=== PATIENT | male | born 1935 | race Caucasian/White ===

== ENCOUNTER → 2017-08-13 10:57 | Outpatient (CLI) | payer OTHER, SELFPAY ==
[2017-08-13 13:09] LABS: INR 2.1 (0.9-1.3)
== END ==
PROVIDERS: PCP Internal Medicine; Visit Provider Internal Medicine
DX: I48.91 Unspecified atrial fibrillation (principal)
CPT/HCPCS: 36415; 85610

== ENCOUNTER → 2017-09-13 08:16 | Outpatient (CLI) | payer OTHER, SELFPAY ==
[2017-09-13 09:43] LABS: INR 2.1 (0.9-1.3); Prothrombin Time 22.3 SECONDS (10.1-12.7)
== END ==
PROVIDERS: PCP Internal Medicine; Visit Provider Internal Medicine
DX: I48.91 Unspecified atrial fibrillation (principal)
CPT/HCPCS: 36415; 85610

== ENCOUNTER 2017-09-15 19:53 | Observation (INO) | payer OTHER, SELFPAY ==
[2017-09-15 20:00] VITALS: BP 126/77; PULSE 84; RESP 21; TEMP 36.8; O2SAT 100
--- NOTE | 2017-09-15 20:37 | DI.RAD.S_ITS ---
PROCEDURE: XR CHEST 2V INDICATIONS: chest pain TECHNIQUE: 2 views of the chest were acquired. COMPARISON: [facility], CT, THORAX WITHOUT CONTRAST, 11/08/2016, 21:55. [facility], CR, CHEST 1 VIEW, 02/17/2017, 12:21. FINDINGS: There are respiratory motion artifacts on the lateral view. Surgical changes and devices: None. Lungs and pleura: No pleural effusions or pneumothorax. Lungs are clear. Mediastinum: Mediastinal contours are normal. Heart size is normal. Bones and chest wall: No suspicious bony abnormalities. Soft tissues appear unremarkable. IMPRESSION: No acute cardiopulmonary disease. Dictated by: Krystal Rowe M.D. on 09/15/2017 at 20:58 Approved by: Krystal Rowe M.D. on 09/15/2017 at 20:59
[2017-09-15 20:51] LABS: Add Manual Diff / Slide Review NO; Basophils Percent Auto 0.5 % (0-2); Eosinophils Percent Auto 0.8 % (2-4); Hemoglobin 13.3 g/dL (13.5-17.5); Mean Corpuscular HGB Conc 34.1 % (30-36); Mean Corpuscular Hemoglobin 29.3 PG (26-34); Mean Corpuscular Volume 86.1 fL (80-100); Monocytes Percent Auto 6.3 % (3-14); Neutrophils Absolute Auto 6300 /uL (3000-5900); Neutrophils Percent Auto 76.4 % (50-75); Platelet Count 185 X10^3/uL (150-400); Red Blood Cell Count 4.53 X10^6/uL (4.5-5.9); Red Cell Distribution Width 15.2 % (11.6-14.8); White Blood Cell Count 8.2 X10^3/uL (4.5-11.0)
[2017-09-15 20:55] LABS: D Dimer 203 ng/mL (<230)
[2017-09-15 21:04] LABS: Lipase 151 U/L (23-300)
[2017-09-15] MEDS: ASPIRIN 81 MG TAB 324 MG PO (21:13)
[2017-09-15 21:19] VITALS: BP 127/68; PULSE 72; RESP 15; O2SAT 100
[2017-09-15 21:27] LABS: Alanine Aminotransferase 28 IU/L (21-72); Albumin 4.2 g/dL (3.5-5.0); Albumin Globulin Ratio 1.3 (1.0-2.8); Alkaline Phosphatase 109 U/L (38-126); Aspartate Aminotransferase 45 IU/L (17-59); BUN Creatinine Ratio 18.7 (6-22); Bilirubin Total 0.9 mg/dL (0.2-1.3); Blood Urea Nitrogen 28 mg/dL (9-20); Carbon Dioxide 23 mmol/L (22-32); Chloride 104 mmol/L (98-107); Estimated Glomerular Filt Rate 44.8 mL/min (>60); Globulin 3.3 g/dL (1.7-4.1); Glucose 309 mg/dL (80-110); HEMOLYSIS 21 (0-50); Potassium 4.7 mmol/L (3.4-5.1); Sodium 139 mmol/L (137-145); Total Protein 7.5 g/dL (6.3-8.2)
[2017-09-15 21:41] LABS: Troponin I < 0.012 ng/mL (0.01-0.034)
[2017-09-15 22:05] VITALS: BP 125/40; PULSE 88; RESP 24; O2SAT 100
--- NOTE | 2017-09-15 22:31 | ED_ITS ---
HPI - Chest Pain General Chief Complaint: Chest Pain Stated Complaint: Chest Pressure History of Present Illness HPI narrative: HPI 82-year-old obese male with IDDM, CHF, and A. fib (on warfarin) presents for evaluation of 3 hours of substernal chest pain that is moderate to severe and without clear provoking or relieving factors. Patient denies similar prior symptoms. Patient denies fevers, chills, cough, SOB. Notes multiple current stressors as several family members are ill and hospitalized. M/S/F/SocHx notable for: please see HPI; remainder reviewed with patient and in chart. ROS: Negative constitutional, eye, cardiovascular, pulmonary, GI, , MSK, skin , neurologic, psychiatric, endocrine unless noted in the HPI. Exam Gen: Pleasant, non-toxic appearing, resting comfortably. HEENT: NC, AT, PEERL, EOMI. Resp: Clear to auscultation bilaterally, normal work of breathing. Card: RRR with no M/R/G, no crackles in lung bases, 1+ edema to the midcalves bilaterally, no JVD appreciated. GI: NT/ND Vascular: Both ankles, calves, and thighs of equal size, no calf tenderness to palpation bilaterally. MSK: No chest wall TTP. No visible deformities, strength and tone WNL. Skin: Normal color with no visible lesions. Neuro: AO x 3, no facial asymmetry, vision and hearing WNL. Psych: Mood and affect appropriate. Labs / Imaging (pertinent): WBC 8.2, Hb 13.3, Na 139, K 4.7. Troponin <0.012 CXR: no acute cardiopulmonary disease process. EKG: atrial fibrillation with ventricular rate of 70 bpm, RBBB, nonspecific ST segment changes. MDM Previous chart, nursing note, and vitals reviewed. A: 82-year-old obese male with IDDM, CHF, and A. fib (on warfarin) presents for evaluation of 3 hours of substernal chest pain that is moderate to severe and without clear provoking or relieving factors. DDx and Evaluation: * ACS - doubt ACS given a non-ischemic EKG and a negative initial troponin, however patient require serial troponins for completion of evaluation. * UA - significant concern for unstable angina, HEART score 6 (Hx - 1, EKG - 1, age - 2, risk factors - 2, troponin - 0; 30 day MACE: 12 to 16.6%). * Pericarditis - consider pericarditis unlikely given the lack of CO segment depressions as well as the absence of diffuse ST-segment elevations, lack of reduction of pain when supine, and lack of a friction rub. * Myocarditis - unlikely given the negative troponin and an EKG without characteristic CO-segment or ST-segment changes. * Dissection - dissection is unlikely given symptoms, and lack of mediastinal widening. * PE - low clinical suspicion given history and alternate diagnosis, further risk stratification (e.g.) Well's not indicated. * Mediastinal Air - no evidence by CXR or auscultation. * Pneumothorax - no evidence by CXR or physical exam. * MSK - doubt given lack of reproducibility on exam. * Endocarditis - no identifiable risk factors, patient afebrile, no new murmurs appreciated on exam; doubt. * GI (Esophageal rupture, GERD) - esophageal rupture effectively excluded given the lack of mediastinal widening, non-toxic appearance, and lack of identifiable risk factors. While not definitively excluded, further evaluation of GERD is deferred to an outpatient setting. ED Course: Patient given ASA and SL nitroglycerin. Vital signs remained stable and within clinically acceptable limits. Disposition: Admitted for cardiac evaluation. Impression: Chest Pain. (please reference below for remainder of encounter information) Related Data Home Medications Medication Instructions Recorded Confirmed tramadol 50 mg PO Q6HP PRN #0 02/03/16 insulin asp prt-insulin aspart 0 SQ BIDAC #0 02/17/17 [Novolog Mix 70-30FlexPen U-100] ketoconazole 1 yue TOPICAL BIDP PRN #0 02/17/17 triamcinolone acetonide 1 yue TOPICAL BIDP PRN #0 02/17/17 Previous Rx's Medication Instructions Recorded metoprolol succinate 100 mg PO QDAY #30 ter 11/11/16 warfarin [Coumadin] 0 PO HS #30 tab 02/17/17 furosemide [Lasix] 80 mg PO QDAY #30 tab 02/19/17 warfarin [Coumadin] 2.5 mg PO SuTuThSa@1800 #30 02/19/17 warfarin [Coumadin] 5 mg PO MoWeFr@1800 #30 02/19/17 tramadol 1 tab PO Q4HP PRN #12 tab 06/25/17 Allergies Allergy/AdvReac Type Severity Reaction Status Date / Time Penicillins Allergy Unknown Unverified 06/23/17 12:01 COUNT INCLUDES THE [facility] Social History Smoking Status: Never smoker Exam Initial Vital Signs Initial Vital Signs: Vital Signs Temperature 98.3 F 09/15/17 20:00 Pulse Rate 84 09/15/17 20:00 Respiratory Rate 21 09/15/17 20:00 Blood Pressure 126/77 H 09/15/17 20:00 Pulse Oximetry 100 09/15/17 20:00 Course Orders Ordered: ED Orders 09/15/17 20:00 Complete Blood Count AUTO DIFF Stat Comprehensive Metabolic Panel Stat D Dimer Stat Lipase Stat Prothrombin Time INR Stat Troponin I Stat 09/15/17 20:37 XR chest 2V Stat 09/15/17 22:28 Consult to Physician Routine Nitroglycerin (Nitrostat) 0.4 mg SL [id number] PRN PRN Reason: Chest Pain Discontinued Medications Aspirin (Aspirin Chew) 324 mg PO NOW ONE Stop: 09/15/17 20:39 Last Admin: 09/15/17 21:13 Dose: 324 mg Vital Signs - 8 hr 09/15/17 20:00 09/15/17 21:19 09/15/17 22:05 Temperature 98.3 F Pulse Rate 84 72 88 Respiratory Rate 21 15 24 Blood Pressure 126/77 H Blood Pressure [Right Arm] 127/68 H 125/40 H Pulse Oximetry 100 100 100 MDM - Chest Pain Lab Data Result diagrams: 09/15/17 20:00 09/15/17 20:00 Lab Results 09/15/17 09/15/17 09/15/17 Range/Units 20:00 20:00 20:00 WBC 8.2 (4.5-11.0) X10^3/uL RBC 4.53 (4.5-5.9) X10^6/uL Hgb 13.3 L (13.5-17.5) g/dL Hct 39.0 L (41-53) % MCV 86.1 (80-100) fL MCH 29.3 (26-34) PG MCHC 34.1 (30-36) % RDW 15.2 H (11.6-14.8) % Plt Count 185 (150-400) X10^3/uL Neut % (Auto) 76.4 H (50-75) % Lymph % (Auto) 16.0 L (25-40) % [place] % (Auto) 6.3 (3-14) % Eos % (Auto) 0.8 L (2-4) % Baso % (Auto) 0.5 (0-2) % Neut # (Auto) 6300 H (9770-1537) /uL PT (10.1-12.7) SECONDS INR (0.9-1.3) D-Dimer 203 (<230) ng/mL Sodium 139 (137-145) mmol/L Potassium 4.7 (3.4-5.1) mmol/L Chloride 104 (98-107) mmol/L Carbon Dioxide 23 (22-32) mmol/L BUN 28 H (9-20) mg/dL Creatinine 1.50 H (0.66-1.25) mg/dL Estimated GFR 44.8 L (>60) mL/min BUN/Creatinine Ratio 18.7 (6-22) Glucose 309 H (80-110) mg/dL Calcium 9.0 (8.4-10.2) mg/dL Total Bilirubin 0.9 (0.2-1.3) mg/dL AST 45 (17-59) IU/L ALT 28 (21-72) IU/L Alkaline Phosphatase 109 (38-126) U/L Troponin I < 0.012 (0.01-0.034) ng/mL Total Protein 7.5 (6.3-8.2) g/dL Albumin 4.2 (3.5-5.0) g/dL Globulin 3.3 (1.7-4.1) g/dL Albumin/Globulin Ratio 1.3 (1.0-2.8) Lipase (23-300) U/L 09/15/17 09/15/17 Range/Units 20:00 20:00 WBC (4.5-11.0) X10^3/uL RBC (4.5-5.9) X10^6/uL Hgb (13.5-17.5) g/dL Hct (41-53) % MCV (80-100) fL MCH (26-34) PG MCHC (30-36) % RDW (11.6-14.8) % Plt Count (150-400) X10^3/uL Neut % (Auto) (50-75) % Lymph % (Auto) (25-40) % [place] % (Auto) (3-14) % Eos % (Auto) (2-4) % Baso % (Auto) (0-2) % Neut # (Auto) (4829-4058) /uL PT 22.0 H (10.1-12.7) SECONDS INR 2.0 H (0.9-1.3) D-Dimer (<230) ng/mL Sodium (137-145) mmol/L Potassium (3.4-5.1) mmol/L Chloride (98-107) mmol/L Carbon Dioxide (22-32) mmol/L BUN (9-20) mg/dL Creatinine (0.66-1.25) mg/dL Estimated GFR (>60) mL/min BUN/Creatinine Ratio (6-22) Glucose (80-110) mg/dL Calcium (8.4-10.2) mg/dL Total Bilirubin (0.2-1.3) mg/dL AST (17-59) IU/L ALT (21-72) IU/L Alkaline Phosphatase (38-126) U/L Troponin I (0.01-0.034) ng/mL Total Protein (6.3-8.2) g/dL Albumin (3.5-5.0) g/dL Globulin (1.7-4.1) g/dL Albumin/Globulin Ratio (1.0-2.8) Lipase 151 (23-300) U/L Discharge Plan Departure Patient Disposition: Admitted As Inpatient Clinical Impression: Chest pain
[2017-09-15 23:20] VITALS: BP 108/53; PULSE 82; RESP 17; O2SAT 100
[2017-09-16] VITALS (12 sets, daily range): BP systolic 108–145; BP diastolic 62–93; PULSE 77–104; RESP 12–26; TEMP 36.3–36.7; O2SAT 97–100; BMI 39.2
--- NOTE | 2017-09-16 02:27 | PC.ADMIT ---
[id number] [facility] Admission Note: Marty was admitted from Emergency Room via wheelchair into room 205 Acute care for observation of chest pain / on telemetry, currently NPO with PIV in left forearm. He has chronic back pain and uses a cane, also has limited sight out of right eye with reduction in perception and acuity, and he did not bring his glasses to hospital making reading challenging. He is alert, a good historian and able to provide accurate information about past health, and he brings along a medication log which details his meds and labs. On PE, he has 3+ dependent edema of his legs / ankles and 4+ on top of left foot. Musculoskeletal mobility is impaired with reduction in all levels of movement. He is NPO for stress test later in AM. The patient,Marty Heard, 82 y/o, was given written information regarding hospital policies, unit procedures and contact persons. Patient's smoking status: Never smoker. Vital Signs - 8 hr 09/15/17 20:00 09/15/17 21:19 09/15/17 22:05 Temperature 98.3 F Pulse Rate 84 72 88 Respiratory Rate 21 15 24 Blood Pressure 126/77 H Blood Pressure [Right Arm] 127/68 H 125/40 H Pulse Oximetry 100 100 100 09/15/17 23:20 09/16/17 00:11 09/16/17 00:40 Temperature Pulse Rate 82 88 104 H Respiratory Rate 17 26 H 15 Blood Pressure 113/63 Blood Pressure [Right Arm] 108/53 L 113/63 Pulse Oximetry 100 97 98 09/16/17 01:18 Temperature 97.7 F Pulse Rate 85 Respiratory Rate 12 Blood Pressure 145/77 H Blood Pressure [Right Arm] Pulse Oximetry 100
[2017-09-16] MEDS: MORPHINE 2 MG/ML INJ IV (04:14)
--- NOTE | 2017-09-16 04:33 | PC.NURSE ---
Addendum entered by Kira Sumner R.N. 09/16/17 04:51: Son, Jason, visiting in room. Original Note: Pain centralized under sternum; no radiation,no diaphoresis, BP stable w systolic at 144, sats 99. morphine 2 mg IV given at 0416 with good results. He ambulated to bathroom, returned to bedside chair.
[2017-09-16 04:51] LABS: Troponin I < 0.012 ng/mL (0.01-0.034)
--- NOTE | 2017-09-16 09:28 | PM.HP.1 ---
History of Present Illness Date Patient Seen: 09/16/17 Time Patient Seen: 08:28 Chief complaint: Chest Pressure Narrative: Patient is an 82-year-old male who sees Dr. Junior Singh for primary care presented last night to emergency department with complaints of persistent chest discomfort. He has history of diabetes, chronic atrial fibrillation, on chronic anticoagulation, but no known coronary artery disease. Yesterday afternoon he began to notice chest discomfort which persisted for several hours bringing him to the emergency department. The discomfort was located in the lower sternum. He also felt shortness of breath. Patient states he had a normal chemical stress test a couple of years ago. His initial EKG was unchanged and cardiac enzymes have been normal x2. Currently not having pain. Patient History Medical History Diabetes (Acute) Chronic atrial fibrillation with RVR (Acute) Hypothyroidism (Acute) Cancer of left ear (Acute) E coli infection (Acute) Hernia of abdominal cavity (Acute) Inguinal hernia bilateral, non-recurrent (Acute) Melanoma (Acute) Prostate cancer (Acute) Family & Social History Social History: household members family Prior Living Arrangements House Safety & Behavioral: Feels Safe in Current Yes Environment Been Physically Hurt or No Threatened By a Person Suicidal Ideation Description None Suicide Plan Description No Plan Tobacco & Substance use: Smoking Status Never smoker alcohol intake frequency 0-2 drinks per day Substance Use Type does not use Meds Home Medications Medication Instructions Recorded Confirmed Type tramadol 50 mg PO Q6HP PRN #0 02/03/16 09/16/17 History metoprolol succinate 100 mg PO QDAY #30 ter 11/11/16 09/16/17 Rx insulin asp prt-insulin aspart 30 units SQ BIDAC #0 02/17/17 09/16/17 History [Novolog Mix 70-30FlexPen U-100] furosemide [Lasix] 80 mg PO QDAY #30 tab 02/19/17 09/16/17 Rx warfarin [Coumadin] 2.5 mg PO SuTuThSa@1800 #30 02/19/17 09/16/17 Rx levothyroxine 50 mcg PO DAILY 09/16/17 09/16/17 History Allergies Allergy/AdvReac Type Severity Reaction Status Date / Time Penicillins Allergy Unknown Verified 09/16/17 04:01 Review of Systems Review of Systems All systems reviewed & are unremarkable except as noted in HPI and below Exam Vital Signs (past 8 hours): - 09/16/17 04:06 09/16/17 04:32 09/16/17 04:43 Temperature 97.5 F L Pulse Rate 88 88 Respiratory Rate 14 12 Blood Pressure 144/76 H 123/77 H Pulse Oximetry 99 99 Oxygen Delivery Method Room Air Narrative Exam Narrative: GENERAL: This is an alert obese male in no acute distress. HEAD: Atraumatic. Normocephalic. EYES: Pupils equal, round and reactive. Extraocular motions intact. No scleral icterus. No injection or drainage. OROPHARYNX: moist mucosa NECK: Trachea midline. No JVD or lymphadenopathy. CARDIOVASCULAR: Distant S1 and S2, irregularly regular rhythm, no murmur RESPIRATORY: Clear to auscultation bilaterally. GASTROINTESTINAL: Abdomen obese, soft, non-tender. No hepato-splenomegaly, or palpable masses. EXTREMITIES: Chronic edema lower extremities. Distal pulses not palpable. NEUROLOGICAL: Alert, well oriented, speech is intact, normal bilateral upper and lower extremity strength SKIN: warm, dry, no rash Objective Labs Result Diagrams: 09/15/17 20:00 09/15/17 20:00 Labs: EKG x2: Atrial fibrillation with RVR, LAD, right bundle branch block Chest x-ray: No acute finding Laboratory Results - last 24 hr 09/15/17 09/15/17 09/15/17 20:00 20:00 20:00 WBC 8.2 RBC 4.53 Hgb 13.3 L Hct 39.0 L MCV 86.1 MCH 29.3 MCHC 34.1 RDW 15.2 H Plt Count 185 Neut % (Auto) 76.4 H Lymph % (Auto) 16.0 L [place] % (Auto) 6.3 Eos % (Auto) 0.8 L Baso % (Auto) 0.5 Neut # (Auto) 6300 H PT INR D-Dimer 203 Sodium 139 Potassium 4.7 Chloride 104 Carbon Dioxide 23 BUN 28 H Creatinine 1.50 H Estimated GFR 44.8 L BUN/Creatinine Ratio 18.7 Glucose 309 H Calcium 9.0 Total Bilirubin 0.9 AST 45 ALT 28 Alkaline Phosphatase 109 Troponin I < 0.012 Total Protein 7.5 Albumin 4.2 Globulin 3.3 Albumin/Globulin Ratio 1.3 Lipase 09/15/17 09/15/17 09/16/17 20:00 20:00 04:20 WBC RBC Hgb Hct MCV MCH MCHC RDW Plt Count Neut % (Auto) Lymph % (Auto) [place] % (Auto) Eos % (Auto) Baso % (Auto) Neut # (Auto) PT 22.0 H INR 2.0 H D-Dimer Sodium Potassium Chloride Carbon Dioxide BUN Creatinine Estimated GFR BUN/Creatinine Ratio Glucose Calcium Total Bilirubin AST ALT Alkaline Phosphatase Troponin I < 0.012 Total Protein Albumin Globulin Albumin/Globulin Ratio Lipase 151 Assessment & Plan Plan: Assessment/Plan Narrative: 1. Chest pain syndrome. Patient's initial evaluation includes EKG x2 with no acute findings and troponin x2 negative. He has cardiac risk factors of diabetes. Admitted to observation service for further assessment for potential occlusive coronary artery disease. He is unable to walk sufficiently on treadmill and a chemical stress test is planned for today. 2. Chronic atrial fibrillation. His INR is therapeutic on warfarin and rate controlled with metoprolol. 3. Diabetes. Continue routine insulin. 4. Likely peripheral artery disease. He has stigmata of PA DE on exam with nonpalpable distal pulses, shiny skin, pedal edema. Recommend further outpatient evaluation.
--- NOTE | 2017-09-16 11:25 | PC.NURSE ---
Addendum entered by Odalys Cohen R.N. 09/16/17 12:38: Metoprolol and lasix held for stress test. Patient returned to floor at 1230 from [facility]. CBG at 390. Called down to pharmacy to stress importance of insulin (pt on a non-formulary Novolog 70/30 mix and pharmacy is awaiting its arrival from [facility]). Patient resting in chair with ice water. Spoke to Dr. Castañeda who mentioned that he will start the pt on a sliding scale. Original Note: Patient left floor at 1100 via wheelchair to [facility] for stress test.
[2017-09-16] MEDS: METOPROLOL ER 50 MG TABLET 100 MG PO (12:48)
[2017-09-16] MEDS: FUROSEMIDE 40 MG TABLET 80 MG PO (12:48)
[2017-09-16] MEDS: INSULIN ASPART 100 UNIT/ML INSULN PEN SUBCUT ×2 (12:56→16:51)
--- NOTE | 2017-09-16 14:22 | CM.DANOTE ---
DCP: Case received, EMR reviewed and met with patient. Introduced self and role. DCP template completed with info currently available. Pt. is an 82 year male who was admitted yesterday evening to care of hospitalist team. PCP: Dr. Singh. Payer: confirmed: [facility]. Patient carries diagnosis of chest pain, and will be undergoing stress test. Plan: channel sales manager will follow patient and note when discharge is to occur. Lives at home with . Marya Sol RN/case hardener
[2017-09-16] MEDS: INSULIN GLARGINE 100 UNIT/ML 3ML PEN 21 UNIT SUBCUT (16:52)
[2017-09-16] MEDS: INSULIN ASPART 100 UNIT/ML INSULN PEN 9 UNIT SUBCUT (16:52)
[2017-09-16] MEDS: WARFARIN 2.5 MG TABLET PO (16:54)
[2017-09-16] MEDS: SODIUM CHLORIDE 0.9% FLUSH 10 ML IV (19:12)
[2017-09-17 02:15] VITALS: BP 117/72; PULSE 95; RESP 16; TEMP 36.4; O2SAT 98
--- NOTE | 2017-09-17 02:39 | PC.NURSE ---
Addendum entered by Yanely Brown R.N. 09/17/17 06:22: Stood at side of bed to urinate. Has great difficulty moving and needed assistance to get to standing position. After back to bed requested to use bathroom for BM so was assisted to BSC but only passed flatus. Denies pain this morning. Slept most of shift. Original Note: Patient is alert and oriented. Is legally blind in right eye and objects are blurred. Breath sounds CTA with RA sat of 98%. HR irregular; hx of afib. Tele reading at 0000 was afib CVR w/BBB, ectopy and occ PVC's. Denies nausea. BT present and abdomen is soft. Denies dysuria, frequency, urgency or incontinence. Independent with bed mobility but is unsteady and weak in LE so uses walker + 1 assist when up to bathroom. Denies pain or chest pressure. Is aware he is having Lexiscan in a.m. and will be NPO after 0500. 3+ bilateral LE edema which he states was present on admit and causes legs to feel numb. Fall risk score is high and bed alarm is activated.
[2017-09-17 05:55] VITALS: BP 129/86; PULSE 95; RESP 16; TEMP 36.2
[2017-09-17 08:00] VITALS: BP 115/73; PULSE 85; RESP 20; TEMP 36.2; O2SAT 98
--- NOTE | 2017-09-17 08:56 | PC.NURSE ---
Addendum entered by Odalys Cohen R.N. 09/17/17 09:24: Patient returned to floor around 0915. Sitting up in chair. Breathing heavy, but denies shortness of breath or chest pain. RR 20. Breathing down to 18 and less work 2 minutes after sitting up and resting. Original Note: AM Shift Patient left floor at 0830 for stress test. Morning PO meds held due to patient NPO. Patient denying pain/n/v
[2017-09-17] MEDS: METOPROLOL ER 50 MG TABLET 100 MG PO (09:49)
[2017-09-17] MEDS: FUROSEMIDE 40 MG TABLET 80 MG PO (09:49)
[2017-09-17] MEDS: LEVOTHYROXINE 50 MCG TABLET PO (09:49)
[2017-09-17] MEDS: INSULIN GLARGINE 100 UNIT/ML 3ML PEN 21 UNIT SUBCUT ×2 (09:50→16:52)
[2017-09-17] MEDS: INSULIN ASPART 100 UNIT/ML INSULN PEN SUBCUT ×3 (09:51→16:51)
[2017-09-17] MEDS: INSULIN ASPART 100 UNIT/ML INSULN PEN 9 UNIT SUBCUT ×2 (09:51→16:51)
[2017-09-17] MEDS: SODIUM CHLORIDE 0.9% FLUSH 10 ML IV (09:55)
[2017-09-17 13:30] VITALS: BP 105/58; BP 86/52; PULSE 90; RESP 20; TEMP 36.9; O2SAT 97
--- NOTE | 2017-09-17 16:01 | PM.DS.1 ---
History of Present Illness Chief complaint: Chest Pressure Narrative: Patient is an 82-year-old male who sees Dr. Junior Singh for primary care presented last night to emergency department with complaints of persistent chest discomfort. He has history of diabetes, chronic atrial fibrillation, on chronic anticoagulation, but no known coronary artery disease. Yesterday afternoon he began to notice chest discomfort which persisted for several hours bringing him to the emergency department. The discomfort was located in the lower sternum. He also felt shortness of breath. Patient states he had a normal chemical stress test a couple of years ago. His initial EKG was unchanged and cardiac enzymes have been normal x2. Currently not having pain. Discharge Providers Date of admission: 09/15/17 23:39 Primary care physician: Junior Singh MD Consults: 09/15/17 22:28 Consult to Physician Routine Comment: Consulting Provider: Asif Green V Reason for consultation: chest pain Has provider been notified: Yes Discharge provider: Efren Castañeda MD Summary Discharge Diagnosis: 1. Chest pain, noncardiac 2. Chronic atrial fibrillation 3. Diabetes 4. Suspect peripheral artery disease Procedures: Myocardial perfusion stress test with Lexiscan: Read as probably normal. There is a very subtle inferoapical defect which may be tissue attenuation artifact but no obvious reversible abnormality. Hospital Course: Patient ruled out for CA with serial enzymes. EKG is without acute changes. Lexiscan stress test without obvious reversible ischemia. Discomfort may have been due to reflux, musculoskeletal or other more benign causes. Symptoms have substantially improved. On exam there is concern about severe peripheral artery disease and further outpatient evaluation advised if deemed appropriate by primary care provider. He will follow up next week with Dr. Singh. Status at Discharge Functional status at discharge: uses cane/walker Overall status at discharge: patient is back to baseline Exam Vital Signs (past 8 hours): - 09/17/17 13:30 Temperature 98.4 F Pulse Rate 90 Respiratory Rate 20 Blood Pressure 105/58 L Pulse Oximetry 97 Oxygen Delivery Method Room Air Oxygen Flow Rate 0 Objective Labs Result Diagrams: 09/15/17 20:00 09/15/17 20:00 Discharge Plan Discharge Plan Patient Disposition: Home, Self-Care Provider Discharge Instructions Diet: Diet as Tolerated Discharge Data Primary Care Provider: Junior Singh Attending Provider: Asif Green V Admit Date/Time: 09/15/17 23:39
[2017-09-17] MEDS: WARFARIN 5 MG TABLET PO (16:52)
[2017-09-17 16:59] VITALS: BP 120/75; PULSE 92; RESP 18; TEMP 36; O2SAT 97
--- NOTE | 2017-09-17 18:45 | PC.NURSE ---
DISCHARGE A&Ox3, pt eager to get home. denies any pain, chest pain, or SOB. pt able to ambulate in room with FWW and min/SBA. tele monitoring shows Afib/BBB. d/c instructions reviewed with pt. madhu called for pick and shovel man. pt take off unit via wheelchair at approximately 1840 with RN escort.
--- NOTE | 2017-09-18 04:59 | DI.NM.S_ITS ---
DATE OF SERVICE: 09/16/2017 REFERRING PHYSICIAN: Asif Green MD PROCEDURE: Nuclear cardiac stress study. INDICATIONS: Mr. Heard is an 82-year-old gentleman hospitalized at [facility] with symptoms of chest discomfort. Nuclear cardiac stress study is performed to exclude significant underlying ischemic heart disease. STRESS TEST: This gentleman was given a pharmacologic stress test with standard Lexiscan injection. He received 22.4 mCi of technetium-99 Myoview following pharmacologic stress and returned 1 day later for the resting portion of the examination, receiving an additional 27.7 mCi. The patient was not able to do prone imaging. Baseline 12-lead EKG shows a right bundle branch block with left axis deviation and significantly reduced voltage throughout the 12 leads. The patient is also in atrial fibrillation. With Lexiscan injection, he had no symptoms of chest discomfort or diagnostic EKG changes. FINDINGS: Raw Data: Raw data images demonstrate overall adequate image quality. No significant source of artifact or interference noted. Quantitative Gated SPECT Imaging: Adequate gating was obtained, suggesting a normal size left ventricle with an end diastolic volume of 84 cc. Estimated ejection fraction around 80%. Quantitative Perfusion SPECT Imaging: Myocardial perfusion imaging shows a small inferior apical region of hypoperfusion which persists on the post-stress images but is consistent with normal apical thinning. I do not see any perfusion abnormalities that would suggest ischemia or a scar. IMPRESSION: Normal nuclear cardiac stress study. Marty Heard - GABRIELLE/ezra/ts doc#: [id number]/job#: [id number] dd: 09/17/2017 15:54:00 dt: 09/18/2017 04:41:00 DICTATING MD/COPIES TO: Marko Kaufman MD COPIES MNE: DEANNA
== END 2017-09-17 18:40 | disposition home or self-care (01) ==
LOC: ED 22:30 → AC 09-16 09:49
PROVIDERS: Admitting Provider Internal Medicine; Emergency Provider Emergency Medicine; Family Provider Internal Medicine; PCP Internal Medicine; Visit Provider Internal Medicine
DX: R07.9 Chest pain, unspecified (principal); E11.9 Type 2 diabetes mellitus without complications; Z79.4 Long term (current) use of insulin; I48.2 Chronic atrial fibrillation; Z79.01 Long term (current) use of anticoagulants
CPT/HCPCS: 36415; 36591; 71046; 78452; 80053; 82962; 83690; 84484; 85025; 85379; 85610; 93005; 93016; 93017; 93018; 99283; 99285; G0378; A9502; J2270; J2785

== ENCOUNTER → 2017-10-13 10:50 | Outpatient (CLI) | payer OTHER, SELFPAY ==
[2017-09-16 01:20] VITALS: BMI 39.2
[2017-10-13 12:21] LABS: INR 1.9 (0.9-1.3); Prothrombin Time 20.2 SECONDS (10.1-12.7)
== END ==
PROVIDERS: PCP Internal Medicine; Visit Provider Internal Medicine
DX: I48.91 Unspecified atrial fibrillation (principal)
CPT/HCPCS: 36415; 85610

== ENCOUNTER → 2017-10-21 14:50 | Outpatient (REF) | payer OTHER, SELFPAY ==
[2017-09-16 01:20] VITALS: BMI 39.2
[2017-10-21 15:04] LABS: Add Manual Diff / Slide Review NO; Eosinophils Percent Auto 1.4 % (2-4); Hematocrit 39.2 % (41-53); Hemoglobin 13.2 g/dL (13.5-17.5); Lymphocytes Percent Auto 20.8 % (25-40); Mean Corpuscular HGB Conc 33.8 % (30-36); Mean Corpuscular Hemoglobin 29.3 PG (26-34); Mean Corpuscular Volume 86.7 fL (80-100); Monocytes Percent Auto 7.4 % (3-14); Neutrophils Absolute Auto 4400 /uL (3000-5900); Neutrophils Percent Auto 69.4 % (50-75); Platelet Count 181 X10^3/uL (150-400); Red Blood Cell Count 4.52 X10^6/uL (4.5-5.9); Red Cell Distribution Width 15.3 % (11.6-14.8); White Blood Cell Count 6.3 X10^3/uL (4.5-11.0)
[2017-10-21 15:19] LABS: BUN Creatinine Ratio 19.3 (6-22); Blood Urea Nitrogen 29 mg/dL (9-20); Calcium 8.9 mg/dL (8.4-10.2); Carbon Dioxide 31 mmol/L (22-32); Chloride 105 mmol/L (98-107); Estimated Glomerular Filt Rate 44.8 mL/min (>60); Glucose 157 mg/dL (80-110); HEMOLYSIS 17 (0-50); Potassium 4.4 mmol/L (3.4-5.1); Sodium 144 mmol/L (137-145)
== END ==
LOC: LAB 14:50
PROVIDERS: Family Provider Internal Medicine; PCP Internal Medicine; Visit Provider Internal Medicine
DX: E11.21 Type 2 diabetes mellitus with diabetic nephropathy (principal); I50.32 Chronic diastolic (congestive) heart failure
CPT/HCPCS: 80048; 83036; 83880; 85025

== ENCOUNTER → 2017-11-03 10:56 | Outpatient (CLI) | payer OTHER, SELFPAY ==
[2017-09-16 01:20] VITALS: BMI 39.2
--- NOTE | 2017-11-03 | DI.US.S_ITS ---
PROCEDURE: US ARTERIAL DUPLEX LE BI INDICATIONS: PERIPHERAL VASCULAR DISEASE TECHNIQUE: Color and pulse Doppler interrogation was performed of both lower extremity arterial systems, with image documentation. COMPARISON: [facility], , ARTERIAL LOW.EXTREM.BILATERAL, 12/25/2011, 13:10. [facility], , ARTERIAL LOW.EXTREM.BILATERAL, 04/22/2011, 13:06. FINDINGS: Right lower extremity: Common femoral artery: 111 cm/sec, with triphasic flow. Deep femoral artery: 52 cm/sec, with triphasic flow. Proximal superficial femoral artery: 54 cm/sec, with biphasic flow. Mid superficial femoral artery: 53 cm/sec, with biphasic flow. Distal superficial femoral artery: 45 cm/sec, with biphasic flow. Popliteal artery: 38 cm/sec, with biphasic flow. Posterior tibial artery: 43 cm/sec, with biphasic flow. Anterior tibial artery/dorsalis pedis: 38 cm/sec, with biphasic flow. Tyler-scale imaging description: Mild scattered calcific and soft plaque. Left lower extremity: Common femoral artery: 95 cm/sec, with triphasic flow. Deep femoral artery: 75 cm/sec, with triphasic flow. Proximal superficial femoral artery: 109 cm/sec, with biphasic flow. Mid superficial femoral artery: 84 cm/sec, with a biphasic flow. Distal superficial femoral artery: 77 cm/sec, with biphasic flow. Popliteal artery: 49 cm/sec, with a biphasic flow. Posterior tibial artery: 59 cm/sec, with biphasic flow. Anterior tibial artery/dorsalis pedis: 69 cm/sec, with biphasic flow. Tyler-scale imaging description: Mild scattered calcific and soft plaque. IMPRESSION: Mild scattered calcific and soft plaque bilaterally, no focus of significant arterial stenosis. Triphasic and biphasic flow extending into the calf and foot regions bilaterally. Dictated by: Riki Navarro M.D. on 11/03/2017 at 13:28 Approved by: Riki Navarro M.D. on 11/03/2017 at 13:31
== END ==
PROVIDERS: PCP Internal Medicine; Visit Provider Internal Medicine
DX: I73.9 Peripheral vascular disease, unspecified (principal)
CPT/HCPCS: 93925

== ENCOUNTER → 2017-11-16 15:22 | Outpatient (CLI) | payer OTHER, SELFPAY ==
[2017-09-16 01:20] VITALS: BMI 39.2
[2017-11-16 16:00] LABS: INR 3.3 (0.9-1.3); Prothrombin Time 36.4 SECONDS (10.1-12.7)
== END ==
PROVIDERS: PCP Internal Medicine; Visit Provider Internal Medicine
DX: I48.91 Unspecified atrial fibrillation (principal)
CPT/HCPCS: 36415; 85610

== ENCOUNTER → 2017-12-02 10:47 | Outpatient (CLI) | payer OTHER, SELFPAY ==
[2017-09-16 01:20] VITALS: BMI 39.2
[2017-12-02 12:21] LABS: INR 2.1 (0.9-1.3); Prothrombin Time 23.5 SECONDS (10.1-12.7)
== END ==
PROVIDERS: PCP Internal Medicine; Visit Provider Internal Medicine
DX: I48.2 Chronic atrial fibrillation (principal)
CPT/HCPCS: 36415; 85610

== ENCOUNTER → 2017-12-13 08:27 | Outpatient (CLI) | payer OTHER, SELFPAY ==
[2017-09-16 01:20] VITALS: BMI 39.2
[2017-12-13 09:10] LABS: INR 1.7 (0.9-1.3)
== END ==
PROVIDERS: PCP Internal Medicine; Visit Provider Internal Medicine
DX: I48.2 Chronic atrial fibrillation (principal)
CPT/HCPCS: 36415; 85610

== ENCOUNTER → 2017-12-16 08:29 | Outpatient (CLI) | payer OTHER, SELFPAY ==
[2017-09-16 01:20] VITALS: BMI 39.2
== END ==
PROVIDERS: PCP Internal Medicine; Visit Provider Urology
DX: C61 Malignant neoplasm of prostate (principal)
CPT/HCPCS: 36415; 84153

== ENCOUNTER → 2018-01-14 10:06 | Outpatient (CLI) | payer OTHER, SELFPAY ==
[2017-09-16 01:20] VITALS: BMI 39.2
[2018-01-14 11:26] LABS: Hemoglobin A1C% w Est Avg Glu 7.8 % (4.0-6.0)
[2018-01-14 11:29] LABS: INR 2.1 (0.9-1.3); Prothrombin Time 22.5 SECONDS (10.1-12.7)
[2018-01-14 11:37] LABS: Creatinine Urine Random 49.5 mg/dL
[2018-01-14 11:41] LABS: Microalbumi Creatinin Ratio Ur 62.6 ug/mg CR (<30); Microalbumin Urine Random 3.1 mg/dL (0-1.6)
[2018-01-14 11:42] LABS: BUN Creatinine Ratio 20.7 (6-22); Blood Urea Nitrogen 31 mg/dL (9-20); Calcium 8.5 mg/dL (8.4-10.2); Carbon Dioxide 27 mmol/L (22-32); Chloride 104 mmol/L (98-107); Estimated Glomerular Filt Rate 44.8 mL/min (>60); Glucose 199 mg/dL (80-110); HEMOLYSIS < 15 (0-50); Potassium 4.5 mmol/L (3.4-5.1); Sodium 143 mmol/L (137-145)
== END ==
PROVIDERS: PCP Internal Medicine; Visit Provider Internal Medicine
DX: E11.21 Type 2 diabetes mellitus with diabetic nephropathy (principal); D64.9 Anemia, unspecified; I50.32 Chronic diastolic (congestive) heart failure; I48.2 Chronic atrial fibrillation
CPT/HCPCS: 36415; 80048; 82043; 82570; 83036; 83880; 85610

== ENCOUNTER → 2018-02-10 11:09 | Outpatient (CLI) | payer OTHER, SELFPAY ==
[2017-09-16 01:20] VITALS: BMI 39.2
[2018-02-10 12:17] LABS: INR 2.1 (0.9-1.3); Prothrombin Time 23.4 SECONDS (10.1-12.7)
== END ==
PROVIDERS: PCP Internal Medicine; Visit Provider Internal Medicine
DX: I48.2 Chronic atrial fibrillation (principal)
CPT/HCPCS: 36415; 85610

== ENCOUNTER → 2018-02-23 10:38 | Outpatient (CLI) | payer OTHER, SELFPAY ==
[2017-09-16 01:20] VITALS: BMI 39.2
[2018-02-23 12:16] LABS: INR 1.7 (0.9-1.3); Prothrombin Time 19.4 SECONDS (10.1-12.7)
== END ==
PROVIDERS: PCP Internal Medicine; Visit Provider Internal Medicine
DX: I48.2 Chronic atrial fibrillation (principal)
CPT/HCPCS: 36415; 85610

== ENCOUNTER → 2018-03-09 11:31 | Outpatient (CLI) | payer OTHER, SELFPAY ==
[2017-09-16 01:20] VITALS: BMI 39.2
[2018-03-09 12:29] LABS: INR 1.7 (0.9-1.3); Prothrombin Time 19.2 SECONDS (10.1-12.7)
== END ==
PROVIDERS: PCP Internal Medicine; Visit Provider Internal Medicine
DX: I48.2 Chronic atrial fibrillation (principal)
CPT/HCPCS: 36415; 85610

== ENCOUNTER → 2018-03-23 09:54 | Outpatient (CLI) | payer OTHER, SELFPAY ==
[2017-09-16 01:20] VITALS: BMI 39.2
[2018-03-23 10:43] LABS: INR 2.2 (0.9-1.3)
== END ==
PROVIDERS: PCP Internal Medicine; Visit Provider Internal Medicine
DX: I48.2 Chronic atrial fibrillation (principal)
CPT/HCPCS: 36415; 85610

== ENCOUNTER → 2018-04-14 07:57 | Outpatient (CLI) | payer OTHER, SELFPAY ==
[2017-09-16 01:20] VITALS: BMI 39.2
[2018-04-14 09:22] LABS: Add Manual Diff / Slide Review NO; Basophils Absolute Auto 100 /uL (0-100); Basophils Percent Auto 0.8 % (0-2); Eosinophils Absolute Auto 100 /uL (0-450); Eosinophils Percent Auto 1.9 % (2-4); Hematocrit 39.2 % (41-53); Hemoglobin 12.8 g/dL (13.5-17.5); Lymphocytes Absolute Auto 1500 /uL (1100-4500); Lymphocytes Percent Auto 23.7 % (25-40); Mean Corpuscular HGB Conc 32.7 % (30-36); Mean Corpuscular Hemoglobin 29.1 PG (26-34); Monocytes Absolute Auto 600 /uL (0-900); Monocytes Percent Auto 9.7 % (3-14); Neutrophils Absolute Auto 4100 /uL (1500-7000); Neutrophils Percent Auto 63.9 % (50-75); Platelet Count 191 X10^3/uL (150-400); Red Blood Cell Count 4.41 X10^6/uL (4.5-5.9); Red Cell Distribution Width 14.7 % (11.6-14.8); White Blood Cell Count 6.4 X10^3/uL (4.5-11.0)
[2018-04-14 09:29] LABS: INR 2.8 (0.9-1.3); Prothrombin Time 32.7 SECONDS (10.1-12.7)
[2018-04-14 09:32] LABS: Hemoglobin A1C% w Est Avg Glu 7.9 % (4.0-6.0)
[2018-04-14 09:36] LABS: Alanine Aminotransferase 40 IU/L (21-72); Albumin 3.9 g/dL (3.5-5.0); Albumin Globulin Ratio 1.2 (1.0-2.8); Alkaline Phosphatase 91 U/L (38-126); Aspartate Aminotransferase 43 IU/L (17-59); BUN Creatinine Ratio 19.4 (6-22); Bilirubin Total 0.7 mg/dL (0.2-1.3); Blood Urea Nitrogen 35 mg/dL (9-20); Calcium 8.9 mg/dL (8.4-10.2); Carbon Dioxide 28 mmol/L (22-32); Chloride 103 mmol/L (98-107); Estimated Glomerular Filt Rate 36.3 mL/min (>60); Globulin 3.2 g/dL (1.7-4.1); Glucose 225 mg/dL (80-110); HEMOLYSIS < 15 (0-50); Potassium 4.3 mmol/L (3.4-5.1); Sodium 141 mmol/L (137-145); Total Protein 7.1 g/dL (6.3-8.2)
[2018-04-14 10:47] LABS: TSH w/ Reflex to FT4 3.07 uIU/mL (0.47-4.68)
== END ==
PROVIDERS: PCP Internal Medicine; Visit Provider Internal Medicine
DX: I10 Essential (primary) hypertension (principal); E03.9 Hypothyroidism, unspecified; E11.21 Type 2 diabetes mellitus with diabetic nephropathy; I48.2 Chronic atrial fibrillation
CPT/HCPCS: 36415; 80053; 83036; 84443; 85025; 85610

== ENCOUNTER → 2018-05-12 15:24 | Outpatient (CLI) | payer OTHER, SELFPAY ==
[2017-09-16 01:20] VITALS: BMI 39.2
[2018-05-12 17:05] LABS: INR 2.8 (0.9-1.3); Prothrombin Time 32.4 SECONDS (10.1-12.7)
== END ==
PROVIDERS: PCP Internal Medicine; Visit Provider Internal Medicine
DX: I48.2 Chronic atrial fibrillation (principal)
CPT/HCPCS: 36415; 85610

== ENCOUNTER 2018-06-01 10:15 | Outpatient (CLI) | payer OTHER, SELFPAY ==
[2017-09-16 01:20] VITALS: BMI 39.2
[2018-06-01] VITALS (7 sets, daily range): BP systolic 97–139; BP diastolic 57–83; PULSE 75–95; RESP 16–18; TEMP 36; O2SAT 94–97
--- NOTE | 2018-06-01 10:17 | DI.RAD.S_ITS ---
PROCEDURE: PAIN L/S TRANSFORAMINAL INJECT INDICATIONS: Chronic low back FINDINGS: Fluoroscopic spot filming was performed to verify placement of spinal needles at the C4-C5 level(s), as labeled on the films. Appropriate location(s) of the needle tip(s) was confirmed by injection of iodinated contrast. IMPRESSION: Fluoroscopy guidance for pain management. Dictated by: Krystal Rowe M.D. on 06/01/2018 at 12:36 Approved by: Krystal Rowe M.D. on 06/01/2018 at 12:36
--- NOTE | 2018-06-01 10:17 | DI.RAD.S_ITS ---
PROCEDURE: XR LUMBAR SPINE MIN 4V INDICATIONS: Chronic low back TECHNIQUE: 5 views of the lumbar spine acquired. COMPARISON: [facility], MR, L-SPINE WITHOUT CONTRAST, 11/09/2016, 13:51. [facility], CR, L-SPINE 2-3 VIEWS, 11/09/2016, 13:57. FINDINGS: Bones: 5 nonrib-bearing vertebrae are present. Mild levo scoliosis. There is normal bony alignment. No vertebral body compression fractures. No suspicious bony lesions. There are large anterior lateral bridging osteophytes at L1-L2, L2-L3, L3-L4 and L4-L5. Mild disc space narrowing at L1-L2, L2-L3, L3-L4, and L4-L5. Enlargement of spinous processes with fusion in sclerosis between the spinous processes, consistent with Baastrup's disease. There is no ankylosis of sacroiliac joints. Mild SI joint and hip joint degeneration bilaterally. Soft tissues: Overlying bowel gas pattern is normal. No suspicious soft tissue calcifications. Flexion/extension: There is decreased range of motion, with preserved normal alignment. IMPRESSION: 1. Degenerative disc disease. 2. Baastrup's disease. 3. 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 4. Decreased range of motion. Dictated by: Krystal Rowe M.D. on 06/01/2018 at 16:58 Approved by: Krystal Rowe M.D. on 06/01/2018 at 17:06
[2018-06-01] MEDS: MIDAZOLAM 5 MG/5 ML VIAL IV (11:00)
[2018-06-01] MEDS: BUPIVACAINE 0.25% (PF) VIAL 2 ML INJ (11:05)
[2018-06-01] MEDS: DEXAMETHASONE 10 MG/ML VIAL 20 MG INJ (11:06)
[2018-06-01] MEDS: IOPAMIDOL 15 ML VIAL 3 ML INJ (11:07)
--- NOTE | 2018-06-01 11:12 | PC.NURSE ---
Pt tolerated the procedure well, 2 person minimal assist off the table. Pt transferred to pre procedure room via wheelchair awake and alert for continued monitoring with Muriel DIOP.
--- NOTE | 2018-06-01 11:19 | P.PCN_ITS ---
Procedures Date/Time Date of procedure: 06/01/18 Time of procedure: 11:18 General Procedure description: PREOP DIAGNOSIS 1. FORMAINAL STENOSIS WITH LE SYMPTOMS POST OP DIAGNOSIS 1. FORMAINAL STENOSIS WITH LE SYMPTOMS PROCEDURES 1. FLUOROSCOPICALLY GUIDED CONTRAST CONTROLLED TRANSFORAMINAL EPIDURAL STEROID INJECTION - RIGHT L4/5 TFESI PHYSICIAN: Warren Barriga DO INDICATIONS: Marty is referred by Dr. Singh for treatment of Foraminal Stenosis with Right LE Symptoms FINDINGS Foraminal Nerve Root Compression secondary to disc disease and facet hypertrophy DESCRIPTION OF PROCEDURE: Following denial of allergy and review of potential side effects and complications, including, but not necessarily limited to, infection, allergic reaction, local tissue breakdown, stroke, temporary or permanent nerve injury, paralysis, and possible , the patient indicated that the patient understood and agreed to proceed. An informed consent document was signed by the patient, witnessed by a nurse, and placed in the patient's chart. Additionally, other treatment options including medications, modalities, and physical therapy were reviewed with the patient. After review of previous anaesthesic history and IV conscious sedation the patient was deemed safe to proceed with todays procedure with IV conscious sedation as ASA class II designation. Safety time-out was performed to confirm patient ID, procedure to be performed and site of procedure. IV sedation was accomplished with a combination of 2mg of Versed was administered by the RN after DO order, titrated to patient comfort during the course of the procedure while the patient remained responsive to all verbal commands In the prone position following sterile prep and drape of the lumbar region, the Right L4/5 posterior neuroforamen was identified fluoroscopically. The skin was anesthetized via a 25-gauge 1.5-inch needle with 1% lidocaine solution. At this point, a 25-gauge 3.5-inch spinal needle was atraumatically introduced and advanced under fluoroscopic guidance through the posterior Right L4/5 neuroforamen to approximately the anterior aspect of the canal. Depth was confirmed on lateral view. Following negative aspiration, injection of approximately 1.5 cc of Isovue 200 under live fluoroscopy in the AP view confirmed excellent flow along the nerve root, into the epidural space without vascular or intrathecal uptake observed Radiological data, including multiple fluoroscopic views of the lumbosacral spine, reveal a spinal needle at the right L4/5 posterior neuroforamen. Subsequent views show flow of contrast material flowing superiorly and inferiorly along the nerve root confirming epidural flow. Subsequently, a test dose of 1.5 cc of 1% lidocaine solution was administered and patient was observed for two minutes for signs or symptoms of complications, including abdominal pain, shortness of breath, bilateral upper or lower extremity weakness, nausea and vomiting, prior to steroid injection. At this point, a total of 2cc or 20mg of dexamethasone was injected without incident. The procedure tolerated the procedure well without signs or symptoms of complications prior to transfer to the recovery area continued monitoring without incident.The patient was then transferred to the recovery area where they were observed for an appropriate time after the injection. The patient reported a VAS score of 7 prior to the procedure and a post- procedure VAS of 0. Total Fluoroscopy Time: 20.9 seconds Total Conscious Sedation Time: 24min POST OP INSTRUCTIONS The patient was provided a Pain Log to continue to record their response to the target-specific procedure prior to follow-up visit with their referring physician. Additionally, specific post-injection care instructions and a contact number to our office were provided if concerns arise regarding possible complications associated with the procedure are suspected. Warren Barriga DO Complications: none
--- NOTE | 2018-06-01 11:20 | PC.NURSE ---
accepted care of pt in stable condition
== END 2018-06-01 12:51 | disposition home or self-care (01) ==
LOC: RAD 10:16
PROVIDERS: PCP Internal Medicine; Visit Provider Physical Medicine & Rehabilitation
DX: M48.061 Spinal stenosis, lumbar region without neurogenic claudication (principal); M51.16 Intervertebral disc disorders with radiculopathy, lumbar region
CPT/HCPCS: 64483; 72110; 99152; J1100; J2250

== ENCOUNTER → 2018-06-13 12:38 | Outpatient (CLI) | payer OTHER, SELFPAY ==
[2017-09-16 01:20] VITALS: BMI 39.2
[2018-06-13 13:01] LABS: Prothrombin Time 35.9 SECONDS (10.1-12.7)
== END ==
PROVIDERS: PCP Internal Medicine; Visit Provider Internal Medicine
DX: I48.2 Chronic atrial fibrillation (principal)
CPT/HCPCS: 36415; 85610

== ENCOUNTER → 2018-07-13 10:02 | Outpatient (CLI) | payer OTHER, SELFPAY ==
[2017-09-16 01:20] VITALS: BMI 39.2
[2018-07-13 10:59] LABS: Blood Urea Nitrogen 30 mg/dL (9-20); Calcium 8.7 mg/dL (8.4-10.2); Carbon Dioxide 31 mmol/L (22-32); Chloride 103 mmol/L (98-107); Estimated Glomerular Filt Rate 44.8 mL/min (>60); Glucose 232 mg/dL (80-110); HEMOLYSIS < 15 (0-50); Hemoglobin A1C% w Est Avg Glu 8.9 % (4.0-6.0); Potassium 4.4 mmol/L (3.4-5.1); Sodium 140 mmol/L (137-145)
[2018-07-13 11:05] LABS: INR 3.6 (0.9-1.3)
== END ==
PROVIDERS: PCP Internal Medicine; Visit Provider Internal Medicine
DX: I10 Essential (primary) hypertension (principal); E11.21 Type 2 diabetes mellitus with diabetic nephropathy; I48.2 Chronic atrial fibrillation
CPT/HCPCS: 36415; 80048; 83036; 85610

== ENCOUNTER 2018-07-18 23:09 | Emergency (ER) | payer OTHER, SELFPAY ==
[2017-09-16 01:20] VITALS: BMI 39.2
[2018-07-18 23:16] VITALS: BP 150/87; PULSE 82; RESP 20; O2SAT 97
--- NOTE | 2018-07-18 23:20 | DI.RAD.S_ITS ---
PROCEDURE: XR CHEST 1V INDICATIONS: chest pain TECHNIQUE: One view of the chest was acquired. COMPARISON: None. FINDINGS: Surgical changes and devices: None. Lungs and pleura: Lung volumes are slightly diminished with minimal streaky bibasilar opacities more pronounced on the left. No focal consolidation. No pleural effusions or pneumothorax. Mediastinum: Cardiomediastinal contours are stable. Bones and chest wall: No suspicious bony lesions. Overlying soft tissues appear unremarkable. IMPRESSION: Slightly diminished lung volumes with left greater than right streaky bibasilar opacities favored to represent atelectasis. No focal consolidation. Otherwise, no acute disease. Dictated by: Braxton Zuniga M.D. on 07/19/2018 at 8:36 Approved by: Braxton Zuniga M.D. on 07/19/2018 at 8:38
[2018-07-18 23:27] LABS: Add Manual Diff / Slide Review NO; Basophils Absolute Auto 100 /uL (0-100); Basophils Percent Auto 0.8 % (0-2); Eosinophils Absolute Auto 100 /uL (0-450); Eosinophils Percent Auto 1.2 % (2-4); Hemoglobin 13.3 g/dL (13.5-17.5); Lymphocytes Absolute Auto 1800 /uL (1100-4500); Lymphocytes Percent Auto 18.9 % (25-40); Mean Corpuscular HGB Conc 33.4 % (30-36); Mean Corpuscular Hemoglobin 29.6 PG (26-34); Mean Corpuscular Volume 88.8 fL (80-100); Monocytes Absolute Auto 700 /uL (0-900); Neutrophils Absolute Auto 6600 /uL (1500-7000); Neutrophils Percent Auto 71.1 % (50-75); Platelet Count 200 X10^3/uL (150-400); Red Blood Cell Count 4.51 X10^6/uL (4.5-5.9); Red Cell Distribution Width 14.1 % (11.6-14.8); White Blood Cell Count 9.3 X10^3/uL (4.5-11.0)
[2018-07-18] MEDS: ASPIRIN 81 MG TAB 324 MG PO (23:28)
[2018-07-18] MEDS: SODIUM CHLORIDE 0.9% 1,000 ML 150 ML IV (23:30)
[2018-07-18 23:31] VITALS: BP 144/75; PULSE 77
[2018-07-18 23:31] LABS: INR 2.6 (0.9-1.3); Prothrombin Time 30.3 SECONDS (10.1-12.7)
[2018-07-18] MEDS: NITROGLYCERIN 0.4 MG SL TAB SL ×3 (23:31→23:52)
[2018-07-18 23:33] LABS: PTT Partial Thromboplastin Tim 44 SECONDS (26.4-36.2)
[2018-07-18 23:35] LABS: Alanine Aminotransferase 32 IU/L (21-72); Albumin Globulin Ratio 1.3 (1.0-2.8); Alkaline Phosphatase 110 U/L (38-126); Aspartate Aminotransferase 45 IU/L (17-59); BUN Creatinine Ratio 22.9 (6-22); Bilirubin Total 0.9 mg/dL (0.2-1.3); Blood Urea Nitrogen 39 mg/dL (9-20); Carbon Dioxide 27 mmol/L (22-32); Chloride 100 mmol/L (98-107); Creatine Kinase 79 U/L (55-170); Estimated Glomerular Filt Rate 38.8 mL/min (>60); Globulin 3.2 g/dL (1.7-4.1); Glucose 226 mg/dL (80-110); HEMOLYSIS < 15 (0-50); Lipase 143 U/L (23-300); Sodium 138 mmol/L (137-145); Total Protein 7.2 g/dL (6.3-8.2)
[2018-07-18 23:40] VITALS: BP 115/67; PULSE 76
[2018-07-18 23:42] VITALS: BP 116/67; PULSE 75
--- NOTE | 2018-07-18 23:45 | PC.NURSE ---
patient nauseous and vomiting. provider notified and provider ordered 4mg of zofran IV. no new orders at this time.
[2018-07-18 23:47] LABS: Troponin I < 0.012 ng/mL (0.01-0.034)
[2018-07-18] MEDS: ONDANSETRON 4 MG/2 ML INJ IV (23:47)
[2018-07-18 23:51] VITALS: BP 142/76; PULSE 79
[2018-07-18 23:51] LABS: B Type Natriuretic Peptide 171 (<100)
[2018-07-18 23:52] VITALS: BP 142/76; PULSE 81
[2018-07-19 00:02] VITALS: BP 124/76; PULSE 88
[2018-07-19] MEDS: PANTOPRAZOLE 40 MG VIAL IV (00:07)
--- NOTE | 2018-07-19 00:29 | ED.CHESTPAIN ---
HPI - Chest Pain General Chief Complaint: Chest Pain Stated Complaint: son states father is having a heart attack Time Seen by Provider: 07/18/18 23:19 Source: patient Mode of arrival: wheelchair Limitations: no limitations History of Present Illness HPI narrative: Patient is a 82-year-old male who presents with ?having a heart attack.? As he needed help getting out of the car. He has a history of atrial fibrillation but no known coronary artery disease. As he said it is epigastric nonradiating and started 30 minutes prior to arrival. He said he was lying down going to sleep. Thought it was indigestion took about 4 Tums and did not go away and came to the ER for further evaluation. He denies any shortness of breath nausea. He points to epigastric and right upper quadrant area were hurts. Sometimes radiates to his shoulder. MD complaint: chest pain Onset (ago): minute(s) (30) Pain location: substernal Severity: severe Quality: heaviness Pain radiation: none Relieving factors: nothing Related Data Home Medications Medication Instructions Recorded Confirmed tramadol 50 mg PO Q6HP PRN #0 02/03/16 05/12/18 insulin asp prt-insulin aspart 30 units SQ BIDAC #0 02/17/17 05/12/18 [Novolog Mix 70-30FlexPen U-100] levothyroxine 50 mcg PO DAILY 09/16/17 05/12/18 Previous Rx's Medication Instructions Recorded metoprolol succinate 100 mg PO QDAY #30 ter 11/11/16 furosemide [Lasix] 80 mg PO QDAY #30 tab 02/19/17 warfarin [Coumadin] 2.5 mg PO SuTuThSa@1800 #30 02/19/17 Allergies Allergy/AdvReac Type Severity Reaction Status Date / Time Penicillins Allergy Unknown Verified 05/12/18 14:26 Review of Systems Review of Systems ROS Unobtainable: All systems reviewed & are unremarkable except as noted in HPI and below Constitutional Denies chills, Denies fever(s), Denies lethargy and Denies weakness ENT Ears, Nose, Mouth, and Throat: Denies change in voice, Denies neck pain and Denies sore throat Cardiovascular Reports as per HPI, Denies dyspnea and Denies dyspnea on exertion Respiratory Denies cough, Denies dyspnea, Denies dyspnea on exertion and Denies wheezing Gastrointestinal Gastrointestinal: Denies abdominal pain, Denies change in bowel habits, Denies diarrhea, Denies nausea and Denies vomiting Genitourinary Denies hematuria, Denies flank pain, Denies urinary incontinence and Denies urinary urgency Musculoskeletal Denies neck pain Integumentary/Breasts Denies pruritus, Denies erythema, Denies rash and Denies wounds Neurologic Denies weakness Allergic/Immunologic Denies wheezing [facility] Medical History Diabetes (Acute) Chronic atrial fibrillation with RVR (Acute) Hypothyroidism (Acute) Cancer of left ear (Acute) E coli infection (Acute) Hernia of abdominal cavity (Acute) Inguinal hernia bilateral, non-recurrent (Acute) Melanoma (Acute) Prostate cancer (Acute) Social History household members: family Smoking Status: Never smoker Social History household members: family Smoking Status: Never smoker Exam Initial Vital Signs Initial Vital Signs: Vital Signs Pulse Rate 82 07/18/18 23:16 Respiratory Rate 20 07/18/18 23:16 Blood Pressure 150/87 H 07/18/18 23:16 Pulse Oximetry 97 07/18/18 23:16 GENERAL: alert overweight male appears in pain HEENT: Head atraumatic,EOMI, pupils reactive CARDIOVASCULAR: Regular rate and rhythm without murmurs, rubs or gallops. RESPIRATORY: Breath sounds equal bilaterally, no wheezes rales or rhonchi. ABDOMEN: Soft, overweight, epigastric pain minimal right upper quadrant pain no guarding no rebound no lower abdominal pain EXTREMITIES: Normal range of motion, no clubbing. +1 pitting edema Neurovascularly intact NEUROLOGICAL: Alert and oriented x4.Normal gait and speech. Cranial nerves II through XII grossly intact. SKIN: Warm, dry, no laceration, no petechiae, no rashes or lesions. Course Orders Ordered: ED Orders 07/18/18 23:10 B Type Natriuretic Peptide Stat Complete Blood Count AUTO DIFF Stat Comprehensive Metabolic Panel Stat Lipase Stat Partial Thromboplastin Time Stat Prothrombin Time INR Stat Troponin & CK Cardiac Panel Stat 07/18/18 23:20 XR chest 1V Stat 07/19/18 EKG-12 Lead Routine 07/19/18 00:42 US abdomen limited Stat 07/19/18 01:44 Urine Culture Stat Urine Microscopic Stat 07/19/18 02:30 Troponin I Stat Discontinued Medications Aspirin (Aspirin Chew) 324 mg PO NOW ONE Stop: 07/18/18 23:21 Last Admin: 07/18/18 23:28 Dose: 324 mg Sodium Chloride (Normal Saline 0.9%) 1,000 mls @ 150 mls/hr IV CONT GARRETT Last Infusion: 07/19/18 03:51 Dose: 0 mls/hr Admin: 07/18/18 23:30 Dose: 150 mls/hr Morphine Sulfate (Morphine) 2 mg IV NOW ONE Stop: 07/19/18 00:43 Last Admin: 07/19/18 01:06 Dose: 2 mg Nitroglycerin (Nitrostat) 0.4 mg SL [id number] PRN PRN Reason: Chest Pain Last Admin: 07/18/18 23:52 Dose: 0.4 mg Admin: 07/18/18 23:42 Dose: 0.4 mg Admin: 07/18/18 23:31 Dose: 0.4 mg Ondansetron HCl (Zofran) 4 mg IV NOW ONE Stop: 07/18/18 23:47 Last Admin: 07/18/18 23:47 Dose: 4 mg Pantoprazole Sodium (Protonix) 40 mg IV NOW ONE Stop: 07/19/18 00:05 Last Admin: 07/19/18 00:07 Dose: 40 mg Vital Signs - 8 hr 07/18/18 23:16 07/18/18 23:31 07/18/18 23:40 Pulse Rate 82 77 76 Respiratory Rate 20 Blood Pressure 150/87 H 144/75 H 115/67 Blood Pressure [Left Arm] Pulse Oximetry 97 07/18/18 23:42 07/18/18 23:51 07/18/18 23:52 Pulse Rate 75 79 81 Respiratory Rate Blood Pressure 116/67 142/76 H 142/76 H Blood Pressure [Left Arm] Pulse Oximetry 07/19/18 00:02 07/19/18 01:06 07/19/18 02:00 Pulse Rate 88 23 L 86 Respiratory Rate 21 17 Blood Pressure 124/76 Blood Pressure [Left Arm] 145/81 H 135/88 Pulse Oximetry 07/19/18 02:30 07/19/18 04:07 Pulse Rate 84 91 H Respiratory Rate 16 20 Blood Pressure 130/86 Blood Pressure [Left Arm] 133/84 Pulse Oximetry 98 [facility] - Chest Pain Lab Data Attestation: I reviewed the patient's lab results. Result diagrams: 07/18/18 23:10 07/18/18 23:10 Lab Results 07/18/18 07/18/18 07/18/18 Range/Units 23:10 23:10 23:10 WBC 9.3 (4.5-11.0) X10^3/uL RBC 4.51 (4.5-5.9) X10^6/uL Hgb 13.3 L (13.5-17.5) g/dL Hct 40.0 L (41-53) % MCV 88.8 (80-100) fL MCH 29.6 (26-34) PG MCHC 33.4 (30-36) % RDW 14.1 (11.6-14.8) % Plt Count 200 (150-400) X10^3/uL Neut % (Auto) 71.1 (50-75) % Lymph % (Auto) 18.9 L (25-40) % Petroleum % (Auto) 8.0 (3-14) % Eos % (Auto) 1.2 L (2-4) % Baso % (Auto) 0.8 (0-2) % Neut # (Auto) 6600 (6631-5241) /uL Lymph # (Auto) 1800 (8115-6597) /uL Petroleum # (Auto) 700 (0-900) /uL Eos # (Auto) 100 (0-450) /uL Baso # (Auto) 100 (0-100) /uL PT 30.3 H D (10.1-12.7) SECONDS INR 2.6 H (0.9-1.3) APTT 44 H (26.4-36.2) SECONDS Sodium 138 (137-145) mmol/L Potassium 4.0 (3.4-5.1) mmol/L Chloride 100 (98-107) mmol/L Carbon Dioxide 27 (22-32) mmol/L BUN 39 H (9-20) mg/dL Creatinine 1.70 H (0.66-1.25) mg/dL Estimated GFR 38.8 L (>60) mL/min BUN/Creatinine Ratio 22.9 H (6-22) Glucose 226 H (80-110) mg/dL Calcium 9.0 (8.4-10.2) mg/dL Total Bilirubin 0.9 (0.2-1.3) mg/dL AST 45 (17-59) IU/L ALT 32 (21-72) IU/L Alkaline Phosphatase 110 (38-126) U/L Total Creatine Kinase 79 (55-170) U/L CK-MB (CK-2) TNP CK-MB (CK-2) Rel Index TNP Troponin I < 0.012 (0.01-0.034) ng/mL B-Natriuretic Peptide 171 H (<100) Total Protein 7.2 (6.3-8.2) g/dL Albumin 4.0 (3.5-5.0) g/dL Globulin 3.2 (1.7-4.1) g/dL Albumin/Globulin Ratio 1.3 (1.0-2.8) Lipase 143 (23-300) U/L Urine RBC (0-5/HPF) Urine WBC (0-5/HPF) Urine Bacteria (None) Ur Culture Indicated? Micro UA Comment 07/19/18 07/19/18 Range/Units 01:44 02:30 WBC (4.5-11.0) X10^3/uL RBC (4.5-5.9) X10^6/uL Hgb (13.5-17.5) g/dL Hct (41-53) % MCV (80-100) fL MCH (26-34) PG MCHC (30-36) % RDW (11.6-14.8) % Plt Count (150-400) X10^3/uL Neut % (Auto) (50-75) % Lymph % (Auto) (25-40) % Petroleum % (Auto) (3-14) % Eos % (Auto) (2-4) % Baso % (Auto) (0-2) % Neut # (Auto) (9797-9360) /uL Lymph # (Auto) (2829-5630) /uL Petroleum # (Auto) (0-900) /uL Eos # (Auto) (0-450) /uL Baso # (Auto) (0-100) /uL PT (10.1-12.7) SECONDS INR (0.9-1.3) APTT (26.4-36.2) SECONDS Sodium (137-145) mmol/L Potassium (3.4-5.1) mmol/L Chloride (98-107) mmol/L Carbon Dioxide (22-32) mmol/L BUN (9-20) mg/dL Creatinine (0.66-1.25) mg/dL Estimated GFR (>60) mL/min BUN/Creatinine Ratio (6-22) Glucose (80-110) mg/dL Calcium (8.4-10.2) mg/dL Total Bilirubin (0.2-1.3) mg/dL AST (17-59) IU/L ALT (21-72) IU/L Alkaline Phosphatase (38-126) U/L Total Creatine Kinase (55-170) U/L CK-MB (CK-2) CK-MB (CK-2) Rel Index Troponin I < 0.012 (0.01-0.034) ng/mL B-Natriuretic Peptide (<100) Total Protein (6.3-8.2) g/dL Albumin (3.5-5.0) g/dL Globulin (1.7-4.1) g/dL Albumin/Globulin Ratio (1.0-2.8) Lipase (23-300) U/L Urine RBC None seen (0-5/HPF) Urine WBC 0-1/hpf (0-5/HPF) Urine Bacteria None seen (None) Ur Culture Indicated? Specimen cultured Micro UA Comment . Urine Dip Bedside Urine Glucose 500 mg/dl Bedside Urine Bilirubin - Negative Bedside Urine Ketone ++ 40 Urine Specific [place] 1.015 Bedside Urine Occult Blood - Negative Bedside Urine pH 8 Bedside Urine Protein +/- 15 Bedside Urine Urobilinogen +/- 1mg Bedside Urine Nitrite - Negative Bedside Urine Leukocytes + 70 Esterase Imaging Data Chest x-ray: Attestation: I personally reviewed and interpreted this imaging study as follows: My impression: No acute cardiopulmonary process US - abdomen: Radiologist's impression: Patient report: Limited study a moderately distended gallbladder no definite gallstones. Gallbladder wall thickness is upper limits of normal. Mild dilation of common bile duct. ECG Data Attestation: I personally reviewed and interpreted this ECG as follows: Prior ECG tracings: available for review Interpretation: EKG 1. Atrial fibrillation rate 90 with right bundle branch block no ST changes similar to previous EKG EKG 2. Atrial fibrillation rate 75 right bundle-branch block similar to previous no changes MDM Narrative Medical decision making narrative: The patient has no elevated bilirubin, lipase or LFTs. He has an appointment with his PCP this morning at 10:30 a.m.. 2-troponins EKGs remain stable. At this time I recommend elective outpatient treatment in regards to gallbladder. I discussed warning signs with both patient and son and when to return to the ED. Patient has tramadol at home which I recommend he take that for pain. Discharge Plan Departure Patient Disposition: Home Clinical Impression: Gallbladder attack Discharge Date/Time: 07/19/18 04:13 Interventions: ED Discharge Assessment Last Done: 07/19/18 04:07 Instructions: DI for Cholecystectomy, DI for HIDA Scan Activity Restrictions/Additional Instructions: *You have been diagnosed with gallbladder colic *What to do: At this time I think pain today is associated with her gallbladder. You will likely need her gallbladder taken out however at this time it is not an emergency. Please discuss with her PCP for referral to surgery *Continue to take medications as directed *Follow up with your primary care provider today as previously scheduled *Return to ER if you should have a fever, increasing pain, persistent vomiting or any new, worsening or concerning symptoms Prescriptions: No Action tramadol 50 MG tablet 50 mg PO Q6HP PRN (Reason: Back Pain) Qty: 0 RF: 0 metoprolol succinate 100 MG tablet extended release 24 hr 100 mg PO QDAY Qty: 30 RF: 0 insulin asp prt-insulin aspart [Novolog Mix 70-30FlexPen U-100] 100 UNIT/1 ML insulin pen 30 units SQ BIDAC Qty: 0 RF: 0 warfarin [Coumadin] 2.5 MG tablet 2.5 mg PO SuTuThSa@1800 Qty: 30 RF: 0 furosemide [Lasix] 80 MG tablet 80 mg PO QDAY Qty: 30 RF: 0 levothyroxine 50 mcg Tablet 50 mcg PO DAILY RF: 0 Referrals: Junior Singh MD [Primary Care Provider] -
--- NOTE | 2018-07-19 00:42 | DI.US.S_ITS ---
PROCEDURE: US ABDOMEN LIMITED INDICATIONS: RIGHT UPPER QUADRANT PAIN TECHNIQUE: Real-time focused scanning was performed of the abdomen, with image documentation. COMPARISON: None. FINDINGS: Study is severely limited by patient body habitus and patient scanning characteristics. There is a moderately distended gallbladder without visible wall thickening, gallstones, or pericholecystic fluid. There is a positive sonographic Plasencia's. Suggestion of gallbladder sludge. The liver is not well-visualized but appears diffusely echogenic. Normal appearance of the visualized biliary ducts with mild dilatation of the common bile duct measuring approximately 8 mm. Pancreas is not well visualized. IMPRESSION: Limited right upper quadrant abdominal ultrasound. There is distended gallbladder with abnormal/positive sonographic Plasencia's sign and suggestion of sludge. No definite gallstones, wall thickening, or pericholecystic fluid. Mild dilatation of the common bile duct measuring 8 mm in diameter. Consider further evaluation with CT if persistent clinical concerns. Findings are concordant with preliminary radiology report. Dictated by: Braxton Zuniga M.D. on 07/19/2018 at 8:40 Approved by: Braxton Zuniga M.D. on 07/19/2018 at 8:44
[2018-07-19 01:06] VITALS: BP 145/81; PULSE 23; RESP 21
[2018-07-19] MEDS: MORPHINE 2 MG/ML INJ IV (01:06)
[2018-07-19 01:57] LABS: Bacteria Urine None Seen; RBC Urine None Seen (0-5/HPF)
[2018-07-19 02:00] VITALS: BP 135/88; PULSE 86; RESP 17
[2018-07-19 02:15] LABS: WBC Urine 0-1/HPF (0-5/HPF)
[2018-07-19 02:17] LABS: Culture Indicated Urine Specimen Cultured
[2018-07-19 02:30] VITALS: BP 133/84; PULSE 84; RESP 16
[2018-07-19 03:06] LABS: Troponin I < 0.012 ng/mL (0.01-0.034)
[2018-07-19 04:07] VITALS: BP 130/86; PULSE 91; RESP 20; O2SAT 98
== END 2018-07-19 04:13 | disposition home or self-care (01) ==
PROVIDERS: Emergency Provider Emergency Medicine; PCP Internal Medicine
DX: K52.9 Noninfective gastroenteritis and colitis, unspecified (principal); R07.9 Chest pain, unspecified; R10.13 Epigastric pain; R10.11 Right upper quadrant pain; M25.519 Pain in unspecified shoulder; I48.91 Unspecified atrial fibrillation; E11.9 Type 2 diabetes mellitus without complications
CPT/HCPCS: 36591; 71045; 76705; 80053; 81003; 81015; 82550; 83690; 83880; 84484; 85025; 85610; 85730; 87086; 93005; 96361; 96374; 96375; 99283; 99285; C9113; J2270; J2405

== ENCOUNTER 2018-07-20 11:18 | Emergency (ER) | payer OTHER, SELFPAY ==
[2017-09-16 01:20] VITALS: BMI 39.2
[2018-07-20] VITALS (29 sets, daily range): BP systolic 69–120; BP diastolic 35–73; PULSE 80–121; RESP 16–24; TEMP 36.4; O2SAT 90–100; BMI 40.0
[2018-07-20] MEDS: SODIUM CHLORIDE 0.9% 1,000 ML 1000 ML IV (11:20)
--- NOTE | 2018-07-20 11:26 | DI.RAD.S_ITS ---
PROCEDURE: XR CHEST 1V INDICATIONS: weakness TECHNIQUE: One view of the chest was acquired. COMPARISON: [facility], CR, XR CHEST 1V, 07/18/2018, 23:25. FINDINGS: Surgical changes and devices: None. Lungs and pleura: Lungs are clear. No pleural effusions or pneumothorax. Mediastinum: Mediastinal contours appear normal. Heart size is enlarged. Bones and chest wall: No suspicious bony lesions. Overlying soft tissues appear unremarkable. IMPRESSION: No acute process. Dictated by: Ritika Conn M.D. on 07/20/2018 at 11:57 Approved by: Ritika Conn M.D. on 07/20/2018 at 11:58
[2018-07-20 11:34] LABS: Add Manual Diff / Slide Review NO; Basophils Absolute Auto 0 /uL (0-100); Basophils Percent Auto 0.1 % (0-2); Eosinophils Absolute Auto 0 /uL (0-450); Hematocrit 37.2 % (41-53); Lymphocytes Absolute Auto 700 /uL (1100-4500); Lymphocytes Percent Auto 3.5 % (25-40); Mean Corpuscular HGB Conc 32.4 % (30-36); Mean Corpuscular Hemoglobin 29.3 PG (26-34); Mean Corpuscular Volume 90.6 fL (80-100); Monocytes Absolute Auto 1300 /uL (0-900); Monocytes Percent Auto 6.2 % (3-14); Neutrophils Absolute Auto 18700 /uL (1500-7000); Neutrophils Percent Auto 90.2 % (50-75); Platelet Count 159 X10^3/uL (150-400); Red Blood Cell Count 4.11 X10^6/uL (4.5-5.9); Red Cell Distribution Width 14.9 % (11.6-14.8); White Blood Cell Count 20.7 X10^3/uL (4.5-11.0)
--- NOTE | 2018-07-20 11:37 | PC.NURSE ---
1120 on arrival pt alert and awake, states, walker got caught and cause a fall, now with right wrist pain and 2/10 lower back pain. denies loc low bp 78/49 repeat 1124 bp 97/72 iv start fluid given at bolus 200 ns.
[2018-07-20 11:42] LABS: INR 3.4 (0.9-1.3); Prothrombin Time 40.8 SECONDS (10.1-12.7)
--- NOTE | 2018-07-20 11:48 | PC.NURSE ---
continue infusing ns.
[2018-07-20 11:49] LABS: Alanine Aminotransferase 38 IU/L (21-72); Albumin 3.8 g/dL (3.5-5.0); Albumin Globulin Ratio 1.3 (1.0-2.8); Alkaline Phosphatase 79 U/L (38-126); Aspartate Aminotransferase 69 IU/L (17-59); BUN Creatinine Ratio 16.5 (6-22); Bilirubin Total 2.4 mg/dL (0.2-1.3); Blood Urea Nitrogen 43 mg/dL (9-20); Calcium 8.6 mg/dL (8.4-10.2); Carbon Dioxide 19 mmol/L (22-32); Chloride 100 mmol/L (98-107); Estimated Glomerular Filt Rate 23.7 mL/min (>60); Glucose 314 mg/dL (80-110); HEMOLYSIS < 15 (0-50); Potassium 5.2 mmol/L (3.4-5.1); Sodium 137 mmol/L (137-145); Total Protein 6.8 g/dL (6.3-8.2)
--- NOTE | 2018-07-20 11:54 | DI.US.S_ITS ---
PROCEDURE: US ABDOMEN LIMITED INDICATIONS: septic picture TECHNIQUE: Real-time focused scanning was performed of the abdomen, with image documentation. COMPARISON: [facility], CT, ABDOMEN/PELVIS WITH CONTRAST, 02/03/2016, 13:16. [facility], US, US ABDOMEN LIMITED, 07/19/2018, 1:06. FINDINGS: This study is limited by body habitus. The liver demonstrates a heterogeneous appearance. The gallbladder appears distended. The gallbladder wall is thickened measuring up to 9 mm. Sludge can be seen within the gallbladder. No pericholecystic fluid is detected. The sonographic Plasencia sign is negative. There is no biliary dilatation, the common bile duct measures 6 mm. The pancreas is not seen. IMPRESSION: The gallbladder appears distended and there is abnormal gallbladder wall thickening. Sludge can be seen within the gallbladder. On the current examination, the sonographic Plasencia sign is negative. Please correlate with physical examination findings, patient presentation, and laboratory values. No biliary dilatation is seen. Dictated by: Tony Mckinney M.D. on 07/20/2018 at 11:35 Approved by: Tony Mckinney M.D. on 07/20/2018 at 11:37
[2018-07-20 11:59] LABS: Troponin I 0.016 ng/mL (0.01-0.034)
[2018-07-20 12:04] LABS: Procalcitonin 3.17 ng/mL (<0.5)
[2018-07-20] MEDS: metroNIDAZOLE 500 MG/100 ML PIGGYBACK 100 MG IV (12:13)
[2018-07-20] MEDS: SODIUM CHLORIDE 0.9% 999 ML IV (12:41)
--- NOTE | 2018-07-20 12:42 | ED.FALL ---
HPI - Fall General Chief Complaint: Fall Stated Complaint: GLF head Time Seen by Provider: 07/20/18 11:20 Source: patient, family and EMS Mode of arrival: EMS Limitations: no limitations History of Present Illness HPI Narrative: 82-year-old male with history of diabetes and AFib on Coumadin presents with generalized weakness contributing to a fall just prior to arrival. The patient denies hitting his head and suffered no injury as a result of the fall. His rather stoic and his complaints and has little to complain about but when family arrives today states that he has become increasingly weak. He was recently seen and evaluated with a diagnosis of gallbladder attack. He denies any fever chills nor jaundice. He does admit to epigastric and right upper quadrant pain but denies any nausea, vomiting or diarrhea. His son was walking behind him during the fall and helped ease him to the ground MD complaint: fall Onset (ago): minute(s) Fall from: standing Fall witnessed: yes, by family Place fall occurred: home Loss of consciousness: none Symptoms prior to fall: lightheadedness Context: tripped/slipped Associated symptoms (after fall): denies Related Data Home Medications Medication Instructions Recorded Confirmed tramadol 100 mg PO TID PRN #0 02/03/16 07/20/18 Novolog Mix 70-30FlexPen U-100 45 units SQ QAM #0 02/17/17 07/20/18 levothyroxine 50 mcg PO MOTUWETHFRSA 09/16/17 07/20/18 furosemide [Lasix] 80 mg PO DAILY 07/20/18 07/20/18 insulin NPH and regular human 30 units SUBCUT QPM 07/20/18 07/20/18 [Novolin 70-30 FlexPen U-100] levothyroxine 100 mcg PO HOGAN 07/20/18 07/20/18 metoprolol succinate 100 mg PO DAILY 07/20/18 07/20/18 warfarin [Coumadin] 5 mg PO MOWEFR 07/20/18 07/20/18 Previous Rx's Medication Instructions Recorded warfarin [Coumadin] 2.5 mg PO SuTuThSa@1800 #30 02/19/17 Allergies Allergy/AdvReac Type Severity Reaction Status Date / Time Penicillins Allergy Unknown Verified 07/20/18 11:19 Review of Systems Constitutional Denies chills, Denies fever(s), Denies lethargy and Reports weakness Eyes Denies change in vision, Denies eye discharge, Denies irritation and Denies loss of vision ENT Ears, Nose, Mouth, and Throat: Denies change in voice, Denies neck pain and Denies sore throat Cardiovascular Denies chest pain, Denies irregular heart rhythm, Denies lightheadedness, Denies palpitations, Denies dyspnea, Denies dyspnea on exertion and Denies orthopnea Respiratory Denies cough, Denies dyspnea, Denies dyspnea on exertion and Denies wheezing Gastrointestinal Gastrointestinal: Reports abdominal pain, Denies change in bowel habits, Denies diarrhea, Denies nausea and Denies vomiting Genitourinary Denies hematuria, Denies flank pain, Denies urinary incontinence and Denies urinary urgency Musculoskeletal Denies neck pain Integumentary/Breasts Denies pruritus, Denies erythema, Denies rash and Denies wounds Neurologic Denies confusion, Denies loss of vision and Reports weakness Psychiatric Denies anxiety, Denies confusion, Denies depression, Denies homicidal ideation and Denies suicidal ideation Endocrine Denies palpitations Hematologic/Lymphatic Denies easy bruising Allergic/Immunologic Denies wheezing Exam Narrative Exam Narrative: GENERAL: Morbidly obese 82-year-old male does not appear to be any significant distress HEAD: Atraumatic. Normocephalic. No temporal or scalp tenderness. EYES: Pupils equal round and reactive. Extraocular motions intact. No scleral icterus. No injection or drainage. ENT: Nose without bleeding, purulent drainage or septal hematoma. Throat without erythema, tonsillar hypertrophy or exudate. Uvula midline. Airway patent. NECK: Trachea midline. No JVD or lymphadenopathy. Supple, nontender, no meningeal signs. CARDIOVASCULAR: Tachycardic but regular rhythm without murmurs, gallops, or rubs. RESPIRATORY: Clear to auscultation. Breath sounds equal bilaterally. No wheezes, rales, or rhonchi. GASTROINTESTINAL: Abdomen soft, tender in the epigastrium and right upper quadrant nondistended. No hepato-splenomegaly, or palpable masses. No guarding. EXTREMITIES: No clubbing, cyanosis, or edema. No joint tenderness, effusion, or edema noted. BACK: Nontender without deformity or crepitance. No flank tenderness. NEURO: AOx3. SKIN: No rash or erythema. Initial Vital Signs Initial Vital Signs: Vital Signs Respiratory Rate 18 05/08/19 11:20 Blood Pressure 78/49 L 07/20/18 11:20 [facility] Medical History Diabetes (Acute) Chronic atrial fibrillation with RVR (Acute) Hypothyroidism (Acute) Cancer of left ear (Acute) E coli infection (Acute) Hernia of abdominal cavity (Acute) Inguinal hernia bilateral, non-recurrent (Acute) Melanoma (Acute) Prostate cancer (Acute) Social History household members: family Smoking Status: Never smoker Scores qSOFA Altered Mental Status (GCS <15): No Respiratory rate greater than/equal to 22: No Systolic blood pressure less than or equal to 100: Yes qSOFA Total: 1 0-1 Not High Risk 1-3 High risk Course Orders Ordered: ED Orders 07/20/18 11:20 EKG-12 Lead Routine 07/20/18 11:23 CT head/brain wo con Stat 07/20/18 11:24 Complete Blood Count AUTO DIFF Stat Comprehensive Metabolic Panel Stat Procalcitonin Stat Prothrombin Time INR Stat Troponin I Stat 07/20/18 11:26 XR chest 1V Stat 07/20/18 11:29 C-Reactive Protein Quant Stat Erythrocyte Sedimentation Rate Stat Lipase Stat 07/20/18 11:54 US abdomen limited Stat 07/20/18 14:10 Lactate (Lactic Acid) Stat 07/20/18 15:10 XR chest for PICC 1V Stat 07/20/18 16:35 UA Complete [Urinalysis and Microscopic] Stat Discontinued Medications Sodium Chloride (Normal Saline 0.9%) 1,000 mls @ 1,000 mls/hr IV BOLUS ONE Stop: 07/20/18 12:19 Last Infusion: 07/20/18 12:57 Dose: 0 mls/hr Infusion: 07/20/18 12:23 Dose: 400 mls/hr Admin: 07/20/18 11:20 Dose: 1,000 mls/hr Metronidazole (Flagyl) 500 mg in 100 mls @ 100 mls/hr IV NOW ONE Stop: 07/20/18 12:54 Last Infusion: 07/20/18 13:20 Dose: 0 mls/hr Admin: 07/20/18 12:13 Dose: 100 mls/hr Sodium Chloride (Normal Saline 0.9%) 4,014.3 mls @ 1,338.1 mls/hr 30 ml/kg infuse over 3 hr (4014.3 ml) IV NOW ONE Stop: 07/20/18 15:31 Last Infusion: 07/20/18 15:49 Dose: 0 mls/hr Infusion: 07/20/18 14:52 Dose: 999 mls/hr Infusion: 07/20/18 14:52 Dose: 0 mls/hr Infusion: 07/20/18 13:52 Dose: 1,338 mls/hr Infusion: 07/20/18 13:00 Dose: 1,338 mls/hr Admin: 07/20/18 12:41 Dose: 999 mls/hr Levofloxacin (Levaquin) 500 mg in 100 mls @ 100 mls/hr IV NOW ONE Stop: 07/20/18 13:54 Last Infusion: 07/20/18 14:29 Dose: 0 mls/hr Admin: 07/20/18 13:19 Dose: 100 mls/hr Norepinephrine Bitartrate 4 mg (/ Dextrose) 254 mls @ 30.48 mls/hr IV TITRATE GARRETT; Protocol Last Titration: 07/20/18 17:43 Dose: 10 mcg/min, 38.1 mls/hr Titration: 07/20/18 17:00 Dose: 10 mcg/min, 38.1 mls/hr Titration: 07/20/18 16:41 Dose: 8 mcg/min, 30.48 mls/hr Admin: 07/20/18 16:26 Dose: 4 mcg/min, 15.24 mls/hr Reevaluation(s) Reevaluation #1: patient having little response to fluids, initial BP in the 70s is slowly into the 80s after 2nd L the HR is down to 80s, still no urine. MAP 61 after 3rd L and still no urine and ongoing low BP called for midline and initiation of Levo after levo and 4th L the patient gets BP into the 110s and makes urine Consultations Consultation #1: call to dr. ferguson (Gen surg) whom shares opinion that ascending cholangitis is to be considered. Transfer indicated Consultation #2: call to ICU at [facility]. They are happy to accept patient Vital Signs - 8 hr 07/20/18 11:20 07/20/18 11:24 07/20/18 11:41 Temperature Pulse Rate 113 H 121 H Respiratory Rate 18 24 Blood Pressure [Left Arm] 78/49 L 97/72 Pulse Oximetry 07/20/18 11:46 07/20/18 11:53 07/20/18 11:59 Temperature Pulse Rate 116 H 106 H 105 H Respiratory Rate 18 16 16 Blood Pressure [Left Arm] 83/48 L 70/47 L 73/45 L Pulse Oximetry 99 93 91 07/20/18 12:03 07/20/18 12:06 07/20/18 12:17 Temperature Pulse Rate 102 H 100 H 96 H Respiratory Rate 18 16 16 Blood Pressure [Left Arm] 72/45 L 74/55 L 69/41 L Pulse Oximetry 90 L 95 07/20/18 12:22 07/20/18 12:57 07/20/18 13:00 Temperature Pulse Rate 110 H 93 H Respiratory Rate 16 24 Blood Pressure [Left Arm] 74/42 L 75/35 L Pulse Oximetry 92 91 99 07/20/18 13:32 07/20/18 13:39 07/20/18 13:51 Temperature Pulse Rate 90 86 88 Respiratory Rate 16 16 Blood Pressure [Left Arm] 80/50 L 80/50 L 82/49 L Pulse Oximetry 97 99 98 07/20/18 14:10 07/20/18 14:28 07/20/18 14:31 Temperature Pulse Rate 89 85 90 Respiratory Rate 16 16 18 Blood Pressure [Left Arm] 87/53 L 81/54 L 88/63 L Pulse Oximetry 94 98 96 07/20/18 14:49 07/20/18 15:01 07/20/18 15:22 Temperature Pulse Rate 92 H 84 98 H Respiratory Rate 16 16 16 Blood Pressure [Left Arm] 79/54 L 86/57 L 86/73 L Pulse Oximetry 98 96 98 07/20/18 16:25 07/20/18 16:46 07/20/18 16:47 Temperature Pulse Rate 81 99 H 99 H Respiratory Rate 16 16 16 Blood Pressure [Left Arm] 82/48 L 78/47 L 86/50 L Pulse Oximetry 97 98 98 07/20/18 17:01 07/20/18 17:05 07/20/18 17:13 Temperature Pulse Rate 90 91 H 88 Respiratory Rate 16 16 16 Blood Pressure [Left Arm] 88/58 L 100/59 L 113/70 Pulse Oximetry 96 100 100 07/20/18 17:16 07/20/18 17:41 Temperature 97.5 F L Pulse Rate 80 Respiratory Rate 16 Blood Pressure [Left Arm] 120/65 Pulse Oximetry 100 MDM - Fall Lab Data Result diagrams: 07/20/18 11:24 07/20/18 11:24 Lab Results 07/20/18 07/20/18 07/20/18 Range/Units 11:24 11:24 11:24 WBC 20.7 H D (4.5-11.0) X10^3/uL RBC 4.11 L (4.5-5.9) X10^6/uL Hgb 12.0 L (13.5-17.5) g/dL Hct 37.2 L (41-53) % MCV 90.6 (80-100) fL MCH 29.3 (26-34) PG MCHC 32.4 (30-36) % RDW 14.9 H (11.6-14.8) % Plt Count 159 (150-400) X10^3/uL Neut % (Auto) 90.2 H (50-75) % Lymph % (Auto) 3.5 L (25-40) % Stewart % (Auto) 6.2 (3-14) % Eos % (Auto) 0.0 L (2-4) % Baso % (Auto) 0.1 (0-2) % Neut # (Auto) 94242 H (0301-4347) /uL Lymph # (Auto) 700 L (2398-6433) /uL Stewart # (Auto) 1300 H (0-900) /uL Eos # (Auto) 0 (0-450) /uL Baso # (Auto) 0 (0-100) /uL ESR (0-15) MM/HR PT 40.8 H D (10.1-12.7) SECONDS INR 3.4 H (0.9-1.3) Sodium 137 (137-145) mmol/L Potassium 5.2 H D (3.4-5.1) mmol/L Chloride 100 (98-107) mmol/L Carbon Dioxide 19 L (22-32) mmol/L BUN 43 H (9-20) mg/dL Creatinine 2.60 H (0.66-1.25) mg/dL Estimated GFR 23.7 L (>60) mL/min BUN/Creatinine Ratio 16.5 (6-22) Glucose 314 H (80-110) mg/dL Lactate (0.7-2.1) mmol/L Calcium 8.6 (8.4-10.2) mg/dL Total Bilirubin 2.4 H (0.2-1.3) mg/dL AST 69 H (17-59) IU/L ALT 38 (21-72) IU/L Alkaline Phosphatase 79 (38-126) U/L Troponin I 0.016 (0.01-0.034) ng/mL C-Reactive Protein (<1.0) mg/dL Total Protein 6.8 (6.3-8.2) g/dL Albumin 3.8 (3.5-5.0) g/dL Globulin 3.0 (1.7-4.1) g/dL Albumin/Globulin Ratio 1.3 (1.0-2.8) Lipase (23-300) U/L Procalcitonin (<0.5) ng/mL Urine Color Urine Appearance Urine pH (4.5-8.0) Ur Specific [place] (1.000-1.035) Urine Protein (Negative) Urine Glucose (UA) (Negative) g/dL Urine Ketones (NEGATIVE) Urine Occult Blood (Negative) Urine Nitrate (Negative) Urine Bilirubin (NEGATIVE) Urine Urobilinogen (0.2) E.U./dL Ur Leukocyte Esterase (NEGATIVE) Urine RBC (0-5/HPF) Urine WBC (0-5/HPF) Ur Squamous Epith Cells (0-5/HPF) Amorphous Sediment Urine Bacteria (None) Hyaline Casts (None) Granular Casts (None) Ur Culture Indicated? 07/20/18 07/20/18 07/20/18 Range/Units 11:24 11:29 11:29 WBC (4.5-11.0) X10^3/uL RBC (4.5-5.9) X10^6/uL Hgb (13.5-17.5) g/dL Hct (41-53) % MCV (80-100) fL MCH (26-34) PG MCHC (30-36) % RDW (11.6-14.8) % Plt Count (150-400) X10^3/uL Neut % (Auto) (50-75) % Lymph % (Auto) (25-40) % Stewart % (Auto) (3-14) % Eos % (Auto) (2-4) % Baso % (Auto) (0-2) % Neut # (Auto) (4337-1248) /uL Lymph # (Auto) (8266-4794) /uL Stewart # (Auto) (0-900) /uL Eos # (Auto) (0-450) /uL Baso # (Auto) (0-100) /uL ESR 86 H (0-15) MM/HR PT (10.1-12.7) SECONDS INR (0.9-1.3) Sodium (137-145) mmol/L Potassium (3.4-5.1) mmol/L Chloride (98-107) mmol/L Carbon Dioxide (22-32) mmol/L BUN (9-20) mg/dL Creatinine (0.66-1.25) mg/dL Estimated GFR (>60) mL/min BUN/Creatinine Ratio (6-22) Glucose (80-110) mg/dL Lactate (0.7-2.1) mmol/L Calcium (8.4-10.2) mg/dL Total Bilirubin (0.2-1.3) mg/dL AST (17-59) IU/L ALT (21-72) IU/L Alkaline Phosphatase (38-126) U/L Troponin I (0.01-0.034) ng/mL C-Reactive Protein 22.9 H (<1.0) mg/dL Total Protein (6.3-8.2) g/dL Albumin (3.5-5.0) g/dL Globulin (1.7-4.1) g/dL Albumin/Globulin Ratio (1.0-2.8) Lipase 40 D (23-300) U/L Procalcitonin 3.17 H (<0.5) ng/mL Urine Color Urine Appearance Urine pH (4.5-8.0) Ur Specific [place] (1.000-1.035) Urine Protein (Negative) Urine Glucose (UA) (Negative) g/dL Urine Ketones (NEGATIVE) Urine Occult Blood (Negative) Urine Nitrate (Negative) Urine Bilirubin (NEGATIVE) Urine Urobilinogen (0.2) E.U./dL Ur Leukocyte Esterase (NEGATIVE) Urine RBC (0-5/HPF) Urine WBC (0-5/HPF) Ur Squamous Epith Cells (0-5/HPF) Amorphous Sediment Urine Bacteria (None) Hyaline Casts (None) Granular Casts (None) Ur Culture Indicated? 07/20/18 07/20/18 Range/Units 14:10 16:35 WBC (4.5-11.0) X10^3/uL RBC (4.5-5.9) X10^6/uL Hgb (13.5-17.5) g/dL Hct (41-53) % MCV (80-100) fL MCH (26-34) PG MCHC (30-36) % RDW (11.6-14.8) % Plt Count (150-400) X10^3/uL Neut % (Auto) (50-75) % Lymph % (Auto) (25-40) % Stewart % (Auto) (3-14) % Eos % (Auto) (2-4) % Baso % (Auto) (0-2) % Neut # (Auto) (2782-1636) /uL Lymph # (Auto) (0849-6646) /uL Stewart # (Auto) (0-900) /uL Eos # (Auto) (0-450) /uL Baso # (Auto) (0-100) /uL ESR (0-15) MM/HR PT (10.1-12.7) SECONDS INR (0.9-1.3) Sodium (137-145) mmol/L Potassium (3.4-5.1) mmol/L Chloride (98-107) mmol/L Carbon Dioxide (22-32) mmol/L BUN (9-20) mg/dL Creatinine (0.66-1.25) mg/dL Estimated GFR (>60) mL/min BUN/Creatinine Ratio (6-22) Glucose (80-110) mg/dL Lactate 2.1 (0.7-2.1) mmol/L Calcium (8.4-10.2) mg/dL Total Bilirubin (0.2-1.3) mg/dL AST (17-59) IU/L ALT (21-72) IU/L Alkaline Phosphatase (38-126) U/L Troponin I (0.01-0.034) ng/mL C-Reactive Protein (<1.0) mg/dL Total Protein (6.3-8.2) g/dL Albumin (3.5-5.0) g/dL Globulin (1.7-4.1) g/dL Albumin/Globulin Ratio (1.0-2.8) Lipase (23-300) U/L Procalcitonin (<0.5) ng/mL Urine Color Yellow Urine Appearance Sl cloudy Urine pH 5.0 (4.5-8.0) Ur Specific [place] >=1.030 H (1.000-1.035) Urine Protein 2+ H (Negative) Urine Glucose (UA) Negative (Negative) g/dL Urine Ketones Negative (NEGATIVE) Urine Occult Blood Trace-lysed (Negative) Urine Nitrate Negative (Negative) Urine Bilirubin Negative (NEGATIVE) Urine Urobilinogen 1.0 (0.2) E.U./dL Ur Leukocyte Esterase Negative (NEGATIVE) Urine RBC None seen (0-5/HPF) Urine WBC None seen (0-5/HPF) Ur Squamous Epith Cells 0-1 /hpf (0-5/HPF) Amorphous Sediment 2+ Urine Bacteria Occasional (0-1) (None) Hyaline Casts 1-5/lpf (None) Granular Casts 1-5/lpf (None) Ur Culture Indicated? Cult not indicated Imaging Data US - abdomen: Radiologist's impression: [place] [address] Ultrasound Report Signed Patient: Marty Heard FMR#: [id number] : 6Acct:[id number] Age/Sex: 82 / MDate of Service: 07/20/18 Loc: ED Accession Number: [id number] Procedure: US abdomen limited Ordering Provider: Adam Majano D.O. PROCEDURE: US ABDOMEN LIMITED INDICATIONS: septic picture TECHNIQUE: Real-time focused scanning was performed of the abdomen, with image documentation. COMPARISON: [facility], CT, ABDOMEN/PELVIS WITH CONTRAST, 02/03/2016, 13:16. [facility], US, US ABDOMEN LIMITED, 07/19/2018, 1:06. FINDINGS: This study is limited by body habitus. The liver demonstrates a heterogeneous appearance. The gallbladder appears distended. The gallbladder wall is thickened measuring up to 9 mm. Sludge can be seen within the gallbladder. No pericholecystic fluid is detected. The sonographic Plasencia sign is negative. There is no biliary dilatation, the common bile duct measures 6 mm. The pancreas is not seen. IMPRESSION: The gallbladder appears distended and there is abnormal gallbladder wall thickening. Sludge can be seen within the gallbladder. On the current examination, the sonographic Plasencia sign is negative. Please correlate with physical examination findings, patient presentation, and laboratory values. No biliary dilatation is seen. Dictated by: Tony Mckinney M.D. on 07/20/2018 at 11:35 Approved by: Tony Mckinney M.D. on 07/20/2018 at 11:37 MDM Narrative Medical decision making narrative: 82-year-old male, chronically ill presents with severe sepsis as evidenced by hypotension in the setting of gallbladder infection. After 3 L of fluid and no significant hemodynamic response pressors were ordered. Discussion with our local surgeon would suggest the possibility of cholangitis at which point it was determined patient was most appropriately treated at a tertiary care facility with a higher level of care that could not only provide ERCP but also a true ICU setting Critical Care Time Critical Care Time: Yes Total Critical Care Time: 45 Attestation: The high probability of a clinically significant, sudden or life threatening deterioration of the [CV] system(s) required my full and direct attention, intervention and personal management. The aggregate critical care time was [45] minutes. This time is in addition to time spent performing reported procedures but includes the following: [x] Data Review and interpretation [x] Patient assessment and monitoring of vital signs [x] Documentation [x] Medication orders and management Discharge Plan Departure Patient Disposition: [facility] Clinical Impression: Sepsis, Severe sepsis, Ascending cholangitis Discharge Date/Time: 07/20/18 17:33 Interventions: ED Discharge Assessment Last Done: 07/20/18 17:30 Prescriptions: No Action tramadol 50 MG tablet 100 mg PO TID PRN (Reason: pain) Qty: 0 RF: 0 Novolog Mix 70-30FlexPen U-100 100 UNIT/1 ML insulin pen 45 units SQ QAM Qty: 0 RF: 0 warfarin [Coumadin] 2.5 MG tablet 2.5 mg PO SuTuThSa@1800 Qty: 30 RF: 0 levothyroxine 50 mcg Tablet 50 mcg PO MOTUWETHFRSA RF: 0 levothyroxine 50 mcg Tablet 100 mcg PO HOGAN RF: 0 warfarin [Coumadin] 5 mg Tablet 5 mg PO MOWEFR RF: 0 Novolin 70-30 FlexPen U-100 100 unit/mL (70-30) Insulin Pen 30 units subcut QPM RF: 0 metoprolol succinate 100 MG tablet extended release 24 hr 100 mg PO DAILY RF: 0 furosemide [Lasix] 80 MG tablet 80 mg PO DAILY RF: 0 Referrals: Junior Singh MD [Primary Care Provider] -
[2018-07-20] MEDS: levoFLOXacin 500 MG/100 ML PIGGYBACK 100 MG IV (13:19)
--- NOTE | 2018-07-20 13:46 | PC.NURSE ---
brother gavi [phone]
[2018-07-20 14:13] LABS: Lipase 40 U/L (23-300)
[2018-07-20 14:23] LABS: Erythrocyte Sedimentation Rate 86 MM/HR (0-15)
[2018-07-20 14:24] LABS: C-Reactive Protein Quant 22.9 mg/dL (<1.0)
[2018-07-20 14:33] LABS: Lactate (Lactic Acid) 2.1 mmol/L (0.7-2.1)
--- NOTE | 2018-07-20 15:10 | DI.RAD.S_ITS ---
PROCEDURE: XR CHEST FOR PICC 1V INDICATIONS: picc line placement TECHNIQUE: One view of the chest was acquired. COMPARISON: [facility], CR, XR CHEST 1V, 07/20/2018, 11:35. FINDINGS: Surgical changes and devices: A left-sided PICC line catheter is identified with the tip overlying the upper superior vena cava. A right-sided PICC line catheter also appears to be present with the tip overlying the right brachiocephalic vein region. Lungs and pleura: Low lung volumes are present. Patchy areas of airspace disease are noted. No large effusion or definite pneumothorax is evident. Mediastinum: Mediastinal contours appear normal. Heart size is normal. Bones and chest wall: No suspicious bony lesions. Overlying soft tissues appear unremarkable. IMPRESSION: 1. PICC line catheters are positioned as described. 2. Probable atelectasis versus pulmonary edema. Superimposed pneumonia is difficult to exclude. Dictated by: Ruddy Mancini M.D. on 07/20/2018 at 15:55 Approved by: Ruddy Mancini M.D. on 07/20/2018 at 15:56
--- NOTE | 2018-07-20 15:33 | PC.NURSE ---
unsuccessful right picc line placement.
[2018-07-20] MEDS: NOREPINEPHRINE 4 MG in DEXTROSE 5% IN WATER 250 ML 15.24 ML IV (16:26)
[2018-07-20 16:49] LABS: RBC Urine None Seen (0-5/HPF); WBC Urine None Seen (0-5/HPF)
--- NOTE | 2018-07-20 16:49 | PC.NURSE ---
report to [place] [phone]
[2018-07-20 16:50] LABS: Appearance Urine UA SL CLOUDY; Bilirubin Urine UA NEGATIVE (NEGATIVE); Color Urine UA YELLOW; Glucose Urine UA NEGATIVE (Negative); Ketones Urine UA NEGATIVE (NEGATIVE); Leukocyte Esterase Urine UA NEGATIVE (NEGATIVE); Nitrite Urine UA NEGATIVE (Negative); Occult Blood Urine UA TRACE-LYSED (Negative); Protein Urine UA 2+ (Negative); Specific Gravity Urine UA >=1.030 (1.000-1.035)
--- NOTE | 2018-07-20 16:54 | PC.NURSE ---
DOUBLE LUMEN BARD POWER PICC PLACED LT SIDE. TIP IS IN THE SVC. PICC LINE IS 55CM WITH 10CM OUT. ARM AT PICC SITE IS CM. BOTH LINE FLUSH WELL AND ABLE TO DRAW BACK BLOOD WITH NO PROBLEMS. ATTEMPED TO PLACED RT SIDE LINE BUT UNABLE TO PASS LINE DOWN TO SVC, LINE CONTINUED TO ADVANCE UP THE RT SIDE TO THE NECK.
[2018-07-20 17:02] LABS: Amorphous Sediment Urine 2+; Bacteria Urine Occasional (0-1); Culture Indicated Urine Cult Not Indicated; Granular Casts Urine 1-5/LPF; Hyaline Casts Urine 1-5/LPF; Squamous Epithelial Cell Urine 0-1 /HPF (0-5/HPF)
== END 2018-07-20 17:33 | disposition short-term general hospital (02) ==
LOC: ED 12:37
PROVIDERS: Emergency Provider Emergency Medicine; PCP Internal Medicine
DX: A41.9 Sepsis, unspecified organism (principal); K83.09 Other cholangitis; W19.XXXA Unspecified fall, initial encounter; E11.9 Type 2 diabetes mellitus without complications; Z79.01 Long term (current) use of anticoagulants
CPT/HCPCS: 36415; 36569; 36591; 70450; 71045; 76705; 80053; 81001; 83605; 83690; 84145; 84484; 85025; 85610; 85651; 86140; 93005; 96361; 96365; 96367; 99285; 99291; 99292; G0390; J1956

== ENCOUNTER 2018-07-26 23:52 | Emergency (ER) | payer OTHER, SELFPAY ==
[2017-09-16 01:20] VITALS: BMI 39.2
[2018-07-27] VITALS: BP 127/67; PULSE 96; RESP 20; O2SAT 99; BMI 40.0
--- NOTE | 2018-07-27 00:50 | DI.RAD.S_ITS ---
PROCEDURE: XR CHEST 1V INDICATIONS: soa TECHNIQUE: One view of the chest was acquired. COMPARISON: [facility], , XR CHEST FOR PICC 1V, 07/20/2018, 15:17. FINDINGS: Surgical changes and devices: None. Lungs and pleura: No acute consolidation. Scattered subsegmental atelectasis and/or scarring. No pleural effusions or pneumothorax. Mediastinum: Mediastinal contours appear normal. Heart size is normal. Bones and chest wall: No suspicious bony lesions. Overlying soft tissues appear unremarkable. IMPRESSION: No acute disease. Dictated by: Alejo Mejía M.D. on 07/27/2018 at 8:32 Approved by: Alejo Mejía M.D. on 07/27/2018 at 8:35
--- NOTE | 2018-07-27 00:55 | ED.URI ---
HPI - URI/Sore Throat General Chief Complaint: Upper Respiratory Symptoms Stated Complaint: blister on leg Time Seen by Provider: 07/27/18 00:41 Source: patient Mode of arrival: EMS Limitations: no limitations History of Present Illness HPI Narrative: The patient arrives with dyspnea. He is feeling better since arrival. He denies chest pain. He has been recently after a fall, head CT was negative. He also return with cholecystitis. He was transferred from this hospital, he underwent cholecystectomy. These events having last week. He returns now by EMS due to dyspnea. He has severe bilateral lower extremity edema. I have asked him 3 times, I cannot get a good picture whether not the edema is acute or chronic. He had orthopnea that has now improved. He has had no fever, chills or cough. On the right tibia he developed a large blister that is been going throughout the course today. This is over 4+ edema in both lower extremities. He has no numbness or tingling in his toes. He has a history of AFib, he denies a history of CHF. He did undergo the surgery recently, preceding current complaints of edema and now the blister. Related Data Home Medications Medication Instructions Recorded Confirmed tramadol 100 mg PO TID PRN #0 02/03/16 07/20/18 Novolog Mix 70-30FlexPen U-100 45 units SQ QAM #0 02/17/17 07/20/18 levothyroxine 50 mcg PO MOTUWETHFRSA 09/16/17 07/20/18 furosemide [Lasix] 80 mg PO DAILY 07/20/18 07/20/18 insulin NPH and regular human 30 units SUBCUT QPM 07/20/18 07/20/18 [Novolin 70-30 FlexPen U-100] levothyroxine 100 mcg PO HOGAN 07/20/18 07/20/18 metoprolol succinate 100 mg PO DAILY 07/20/18 07/20/18 warfarin [Coumadin] 5 mg PO MOWEFR 07/20/18 07/20/18 Previous Rx's Medication Instructions Recorded warfarin [Coumadin] 2.5 mg PO SuTuThSa@1800 #30 02/19/17 Allergies Allergy/AdvReac Type Severity Reaction Status Date / Time Penicillins Allergy Unknown Verified 07/20/18 11:19 Review of Systems Review of Systems ROS Unobtainable: All systems reviewed & are unremarkable except as noted in HPI and below Constitutional Denies chills, Denies fever(s), Reports lethargy and Reports weakness ENT Ears, Nose, Mouth, and Throat: Denies dizziness, Denies neck pain, Denies disequilibrium and Denies sore throat Cardiovascular Denies chest pain, Denies syncope, Denies irregular heart rhythm, Denies lightheadedness, Denies palpitations, Reports dyspnea and Denies orthopnea Respiratory Denies hemoptysis, Denies pain with cough and Reports dyspnea Gastrointestinal Gastrointestinal: Denies abdominal pain, Denies melena, Denies change in bowel habits, Reports constipation (Due to tramadol), Denies dyspepsia, Denies diarrhea, Denies nausea and Denies vomiting Genitourinary Denies dysuria, Denies flank pain, Reports scrotal swelling, Denies urinary incontinence and Denies urinary urgency Musculoskeletal Denies back pain and Denies neck pain Integumentary/Breasts Denies erythema, Denies rash and Denies wounds Comments: 8 cm x 7 cm blister on the right lower leg. Neurologic Denies dizziness, Denies syncope, Denies disequilibrium and Reports weakness Endocrine Denies palpitations [facility] Medical History Diabetes (Acute) Chronic atrial fibrillation with RVR (Acute) Hypothyroidism (Acute) Cancer of left ear (Acute) E coli infection (Acute) Hernia of abdominal cavity (Acute) Inguinal hernia bilateral, non-recurrent (Acute) Melanoma (Acute) Prostate cancer (Acute) Social History household members: family Smoking Status: Never smoker Social History household members: family Smoking Status: Never smoker Exam Initial Vital Signs Initial Vital Signs: Vital Signs Pulse Rate 96 H 07/27/18 00:00 Respiratory Rate 20 07/27/18 00:00 Blood Pressure 127/67 07/27/18 00:00 Pulse Oximetry 99 07/27/18 00:00 Const General: cooperative, comfortable and No anxious Nutritional Appearance: well nourished Orientation: alert, awake, oriented x3 and not confused Other: He is unable to roll over on the gurney without assistance. [facility] Head: normocephalic and atraumatic Ears: external ears normal and TM's normal bilaterally Nose: external nose normal and No nasal discharge Face and sinus: sinuses nontender, face symmetric and No dry mucous membranes Mouth: moist mucous membranes Throat: tonsils normal and uvula midline Eyes Pupils: PERRL EOM: EOM intact bilaterally Neck Neck: No JVD Chest Chest: No tenderness Cardio Rate: regular rate Rhythm: abnormal rhythm irregularly irregular Heart Sounds: S1 normal, S2 normal, no murmurs and no rubs Bruits: no abdominal aortic bruits Pulses: dorsalis pedis present GI Inspection: edema and obesity Palpation: No guarding Percussion: normal to percussion Auscultation: normal bowel sounds Rectal Exam: normal sphincter tone, No abnormal sphincter tone, No abnormal stool and heme negative stool Scrotum: no ecchymosis and edematous Back/Spine/Pelvis Back: No CVA tenderness Skin Other: Large water field blister on the right lower extremity. No rash otherwise Neuro Other: Generalized weakness. No focal is. Extrem General: full ROM, no pedal edema, no calf tenderness and edema (4+ bilateral lower ext in treating edema.) Psych Appearance: well kempt Mental Status: mental status grossly normal Attitude: cooperative Thought Content: normal and suicidality Judgment: judgment good Course Course Narrative: The patient has no complaints of abdominal pain, or symptoms suggesting GI bleeding. His rectal exam is negative. His H states H has been dropping progressive with recent visits. There is no clear explanation for his anemia at this time. He had hypokalemia, this was addressed with oral potassium. He was also given Lasix to the peripheral edema. His BNP is normal, he is not CHF. The chest x-ray is clear. His lung exam was clear. He will be discharged back to his care facility. Orders Ordered: ED Orders 07/27/18 00:50 XR chest 1V Stat EKG-12 Lead Stat 07/27/18 01:00 Prothrombin Time INR Stat 07/27/18 01:08 B Type Natriuretic Peptide Stat Complete Blood Count AUTO DIFF Stat Comprehensive Metabolic Panel Stat Lipase Stat Troponin & CK Cardiac Panel Stat Discontinued Medications Furosemide (Lasix) 40 mg IV NOW ONE Stop: 07/27/18 00:58 Last Admin: 07/27/18 01:16 Dose: 40 mg Potassium Chloride (Potassium Chloride) 40 meq PO NOW ONE Stop: 07/27/18 02:46 Last Admin: 07/27/18 02:52 Dose: 40 meq Vital Signs - 8 hr 07/27/18 00:00 07/27/18 02:38 07/27/18 03:32 Pulse Rate 96 H 94 H 98 H Respiratory Rate 20 14 21 Blood Pressure 127/67 Blood Pressure [Left Arm] 114/61 128/71 Pulse Oximetry 99 95 94 MDM - URI/Sore Throat Lab Data Result diagrams: 07/27/18 01:08 07/27/18 01:08 Lab Results 07/27/18 07/27/18 07/27/18 Range/Units 01:00 01:08 01:08 WBC 8.8 (4.5-11.0) X10^3/uL RBC 3.32 L (4.5-5.9) X10^6/uL Hgb 9.8 L (13.5-17.5) g/dL Hct 29.2 L (41-53) % MCV 88.0 (80-100) fL MCH 29.6 (26-34) PG MCHC 33.7 (30-36) % RDW 14.8 (11.6-14.8) % Plt Count 222 (150-400) X10^3/uL Neut % (Auto) 77.2 H (50-75) % Lymph % (Auto) 12.2 L (25-40) % [place] % (Auto) 8.1 (3-14) % Eos % (Auto) 2.0 (2-4) % Baso % (Auto) 0.5 (0-2) % Neut # (Auto) 6800 (1527-9951) /uL Lymph # (Auto) 1100 (0901-1387) /uL [place] # (Auto) 700 (0-900) /uL Eos # (Auto) 200 (0-450) /uL Baso # (Auto) 0 (0-100) /uL PT 19.2 H D (10.1-12.7) SECONDS INR 1.7 H (0.9-1.3) Sodium 138 (137-145) mmol/L Potassium 3.2 L D (3.4-5.1) mmol/L Chloride 105 (98-107) mmol/L Carbon Dioxide 26 (22-32) mmol/L BUN 25 H (9-20) mg/dL Creatinine 1.30 H (0.66-1.25) mg/dL Estimated GFR 52.9 L (>60) mL/min BUN/Creatinine Ratio 19.2 (6-22) Glucose 189 H D (80-110) mg/dL Calcium 7.4 L (8.4-10.2) mg/dL Total Bilirubin 0.6 (0.2-1.3) mg/dL AST 72 H (17-59) IU/L ALT 40 (21-72) IU/L Alkaline Phosphatase 93 (38-126) U/L Total Creatine Kinase 33 L (55-170) U/L CK-MB (CK-2) TNP CK-MB (CK-2) Rel Index TNP Troponin I < 0.012 (0.01-0.034) ng/mL B-Natriuretic Peptide < 100 (<100) Total Protein 5.4 L (6.3-8.2) g/dL Albumin 2.7 L (3.5-5.0) g/dL Globulin 2.7 (1.7-4.1) g/dL Albumin/Globulin Ratio 1.0 (1.0-2.8) Lipase 403 H D (23-300) U/L Urine Dip Bedside Urine Glucose 100 mg/dl Bedside Urine Bilirubin - Negative Bedside Urine Ketone - Negative Urine Specific [place] 1.015 Bedside Urine Occult Blood - Negative Bedside Urine pH 5.5 Bedside Urine Protein - Negative Bedside Urine Urobilinogen - Negative Bedside Urine Nitrite - Negative Bedside Urine Leukocytes - Negative Esterase Imaging Data Chest x-ray: My impression: No acute findings ECG Data Attestation: I personally reviewed and interpreted this ECG as follows: (AFib rate 93 beats per minute. Borderline left axis deviation. RBBB. No acute ST T wave changes.) Discharge Plan Departure Patient Disposition: Home Clinical Impression: Acute hypokalemia Anemia Qualifiers: Anemia type: unspecified type Qualified Code(s): D64.9 - Anemia, unspecified Dyspnea Qualifiers: Dyspnea type: orthopnea Qualified Code(s): R06.01 - Orthopnea Instructions: Anemia Activity Restrictions/Additional Instructions: Follow-up with Dr. Singh to further explore the cause for the anemia. Prescriptions: No Action tramadol 50 MG tablet 100 mg PO TID PRN (Reason: pain) Qty: 0 RF: 0 Novolog Mix 70-30FlexPen U-100 100 UNIT/1 ML insulin pen 45 units SQ QAM Qty: 0 RF: 0 warfarin [Coumadin] 2.5 MG tablet 2.5 mg PO SuTuThSa@1800 Qty: 30 RF: 0 levothyroxine 50 mcg Tablet 50 mcg PO MOTUWETHFRSA RF: 0 levothyroxine 50 mcg Tablet 100 mcg PO HOGAN RF: 0 warfarin [Coumadin] 5 mg Tablet 5 mg PO MOWEFR RF: 0 Novolin 70-30 FlexPen U-100 100 unit/mL (70-30) Insulin Pen 30 units subcut QPM RF: 0 metoprolol succinate 100 MG tablet extended release 24 hr 100 mg PO DAILY RF: 0 furosemide [Lasix] 80 MG tablet 80 mg PO DAILY RF: 0 Referrals: Junior Singh MD [Primary Care Provider] -
[2018-07-27 01:16] LABS: Add Manual Diff / Slide Review NO; Basophils Absolute Auto 0 /uL (0-100); Basophils Percent Auto 0.5 % (0-2); Eosinophils Absolute Auto 200 /uL (0-450); Hematocrit 29.2 % (41-53); Hemoglobin 9.8 g/dL (13.5-17.5); Lymphocytes Absolute Auto 1100 /uL (1100-4500); Lymphocytes Percent Auto 12.2 % (25-40); Mean Corpuscular HGB Conc 33.7 % (30-36); Mean Corpuscular Hemoglobin 29.6 PG (26-34); Monocytes Absolute Auto 700 /uL (0-900); Monocytes Percent Auto 8.1 % (3-14); Neutrophils Absolute Auto 6800 /uL (1500-7000); Neutrophils Percent Auto 77.2 % (50-75); Platelet Count 222 X10^3/uL (150-400); Red Blood Cell Count 3.32 X10^6/uL (4.5-5.9); Red Cell Distribution Width 14.8 % (11.6-14.8); White Blood Cell Count 8.8 X10^3/uL (4.5-11.0)
[2018-07-27] MEDS: FUROSEMIDE 40 MG/4 ML VIAL IV (01:16)
[2018-07-27 01:22] LABS: Alanine Aminotransferase 40 IU/L (21-72); Albumin 2.7 g/dL (3.5-5.0); Alkaline Phosphatase 93 U/L (38-126); Aspartate Aminotransferase 72 IU/L (17-59); BUN Creatinine Ratio 19.2 (6-22); Bilirubin Total 0.6 mg/dL (0.2-1.3); Blood Urea Nitrogen 25 mg/dL (9-20); Calcium 7.4 mg/dL (8.4-10.2); Carbon Dioxide 26 mmol/L (22-32); Chloride 105 mmol/L (98-107); Creatine Kinase 33 U/L (55-170); Estimated Glomerular Filt Rate 52.9 mL/min (>60); Globulin 2.7 g/dL (1.7-4.1); Glucose 189 mg/dL (80-110); HEMOLYSIS < 15 (0-50); Lipase 403 U/L (23-300); Potassium 3.2 mmol/L (3.4-5.1); Sodium 138 mmol/L (137-145); Total Protein 5.4 g/dL (6.3-8.2)
--- NOTE | 2018-07-27 01:30 | PC.NURSE ---
Pt has blister to RLE with 4+ edema, Pt states was having SOB earlier that has resolved and denies CP. PT blister has increased in size throught coarse of the day and sent by RN due to increasing size pt denied pain to site. Pt O2 sat 98-100% upon arrival on RA.
[2018-07-27 01:32] LABS: B Type Natriuretic Peptide < 100 (<100)
[2018-07-27 01:34] LABS: Troponin I < 0.012 ng/mL (0.01-0.034)
[2018-07-27 02:38] VITALS: BP 114/61; PULSE 94; RESP 14; O2SAT 95
[2018-07-27] MEDS: POTASSIUM CHLORIDE 20 MEQ/15 ML UDC 40 MEQ PO (02:52)
[2018-07-27 03:16] LABS: INR 1.7 (0.9-1.3); Prothrombin Time 19.2 SECONDS (10.1-12.7)
[2018-07-27 03:32] VITALS: BP 128/71; PULSE 98; RESP 21; O2SAT 94
== END 2018-07-27 03:55 | disposition home or self-care (01) ==
PROVIDERS: Emergency Provider Emergency Medicine; PCP Internal Medicine
DX: E87.6 Hypokalemia (principal); E64.9 Sequelae of unspecified nutritional deficiency; R06.01 Orthopnea; S80.821A Blister (nonthermal), right lower leg, initial encounter; R60.9 Edema, unspecified
CPT/HCPCS: 36591; 71045; 80053; 81003; 82550; 83690; 83880; 84484; 85025; 85610; 93005; 93010; 96374; 99284; 99285; J1940

== ENCOUNTER → 2018-08-19 07:38 | Outpatient (ROUT) | payer OTHER, SELFPAY ==
[2017-09-16 01:20] VITALS: BMI 39.2
[2018-08-19 08:38] LABS: INR 1.8 (0.9-1.3); Prothrombin Time 21.6 SECONDS (10.1-12.7)
== END ==
PROVIDERS: PCP Internal Medicine; Visit Provider Internal Medicine
DX: I48.91 Unspecified atrial fibrillation (principal); Z79.899 Other long term (current) drug therapy
CPT/HCPCS: 36415; 85610

== ENCOUNTER → 2018-08-30 15:17 | Outpatient (CLI) | payer OTHER, SELFPAY ==
[2017-09-16 01:20] VITALS: BMI 39.2
[2018-08-30 16:27] LABS: Add Manual Diff / Slide Review NO; Basophils Absolute Auto 0 /uL (0-100); Basophils Percent Auto 0.7 % (0-2); Eosinophils Absolute Auto 100 /uL (0-450); Hematocrit 33.1 % (41-53); Lymphocytes Absolute Auto 1500 /uL (1100-4500); Lymphocytes Percent Auto 24.9 % (25-40); Mean Corpuscular HGB Conc 33.1 % (30-36); Mean Corpuscular Hemoglobin 28.8 PG (26-34); Mean Corpuscular Volume 87.1 fL (80-100); Monocytes Absolute Auto 500 /uL (0-900); Neutrophils Absolute Auto 4000 /uL (1500-7000); Neutrophils Percent Auto 64.4 % (50-75); Platelet Count 239 X10^3/uL (150-400); Red Cell Distribution Width 15.6 % (11.6-14.8); White Blood Cell Count 6.1 X10^3/uL (4.5-11.0)
[2018-08-30 16:43] LABS: B Type Natriuretic Peptide 557 (<100)
[2018-08-30 16:52] LABS: INR 2.3 (0.9-1.3); Prothrombin Time 26.7 SECONDS (10.1-12.7)
[2018-08-30 17:01] LABS: Alanine Aminotransferase 57 IU/L (21-72); Albumin 3.6 g/dL (3.5-5.0); Albumin Globulin Ratio 1.1 (1.0-2.8); Alkaline Phosphatase 124 U/L (38-126); Aspartate Aminotransferase 71 IU/L (17-59); BUN Creatinine Ratio 17.4 (6-22); Bilirubin Total 0.6 mg/dL (0.2-1.3); Blood Urea Nitrogen 33 mg/dL (9-20); Calcium 8.6 mg/dL (8.4-10.2); Carbon Dioxide 30 mmol/L (22-32); Chloride 104 mmol/L (98-107); Globulin 3.2 g/dL (1.7-4.1); Glucose 207 mg/dL (80-110); HEMOLYSIS < 15 (0-50); Potassium 4.4 mmol/L (3.4-5.1); Sodium 141 mmol/L (137-145); Total Protein 6.8 g/dL (6.3-8.2)
[2018-08-30 17:28] LABS: Thyroid Stimulating Hormone 2.55 uIU/mL (0.47-4.68)
== END ==
PROVIDERS: PCP Internal Medicine; Visit Provider Internal Medicine
DX: I50.32 Chronic diastolic (congestive) heart failure (principal); E03.9 Hypothyroidism, unspecified; L97.901 Non-pressure chronic ulcer of unspecified part of unspecified lower leg limited to breakdown of skin; N18.9 Chronic kidney disease, unspecified; I48.2 Chronic atrial fibrillation
CPT/HCPCS: 36415; 80053; 83880; 84443; 85025; 85610

== ENCOUNTER → 2018-09-05 15:02 | Outpatient (CLI) | payer OTHER, SELFPAY ==
[2017-09-16 01:20] VITALS: BMI 39.2
--- NOTE | 2018-09-05 | DI.RAD.S_ITS ---
PROCEDURE: XR CHEST 2V INDICATIONS: Other abnormalities of breathing TECHNIQUE: 2 views of the chest were acquired. COMPARISON: [facility], CR, XR CHEST 1V, 07/27/2018, 0:55. [facility], CR, XR CHEST FOR PICC 1V, 07/20/2018, 15:17. FINDINGS: Surgical changes and devices: None. Lungs and pleura: Lungs are clear. No pleural effusions or pneumothorax. Mediastinum: Mediastinal contours are normal. Heart size is normal. Bones and chest wall: No suspicious bony abnormalities. Soft tissues appear unremarkable. IMPRESSION: Normal for age, source of reported abnormal breath sounds is not seen. Dictated by: Riki Navarro M.D. on 09/05/2018 at 15:34 Approved by: Riki Navarro M.D. on 09/05/2018 at 15:35
== END ==
PROVIDERS: PCP Internal Medicine; Visit Provider Internal Medicine
DX: R06.89 Other abnormalities of breathing (principal)
CPT/HCPCS: 71046

== ENCOUNTER → 2018-09-13 15:40 | Outpatient (CLI) | payer OTHER, SELFPAY ==
[2017-09-16 01:20] VITALS: BMI 39.2
[2018-09-13 17:13] LABS: INR 2.2 (0.9-1.3); Prothrombin Time 26.3 SECONDS (10.1-12.7)
== END ==
PROVIDERS: Family Provider Internal Medicine; PCP Internal Medicine; Visit Provider Internal Medicine
DX: I50.32 Chronic diastolic (congestive) heart failure (principal); E03.9 Hypothyroidism, unspecified; L97.901 Non-pressure chronic ulcer of unspecified part of unspecified lower leg limited to breakdown of skin; N18.9 Chronic kidney disease, unspecified; I48.2 Chronic atrial fibrillation; E11.9 Type 2 diabetes mellitus without complications
CPT/HCPCS: 36415; 85610

== ENCOUNTER → 2018-10-11 12:39 | Outpatient (CLI) | payer OTHER, SELFPAY ==
[2017-09-16 01:20] VITALS: BMI 39.2
[2018-10-11 13:14] LABS: Add Manual Diff / Slide Review NO; Basophils Absolute Auto 100 /uL (0-100); Basophils Percent Auto 1.7 % (0-2); Eosinophils Absolute Auto 200 /uL (0-450); Eosinophils Percent Auto 3.3 % (2-4); Hematocrit 35.8 % (41-53); Hemoglobin 11.7 g/dL (13.5-17.5); Lymphocytes Absolute Auto 1400 /uL (1100-4500); Lymphocytes Percent Auto 28.7 % (25-40); Mean Corpuscular HGB Conc 32.5 % (30-36); Mean Corpuscular Hemoglobin 28.7 PG (26-34); Mean Corpuscular Volume 88.1 fL (80-100); Monocytes Absolute Auto 400 /uL (0-900); Monocytes Percent Auto 8.7 % (3-14); Neutrophils Absolute Auto 2900 /uL (1500-7000); Neutrophils Percent Auto 57.6 % (50-75); Platelet Count 184 X10^3/uL (150-400); Red Blood Cell Count 4.06 X10^6/uL (4.5-5.9); Red Cell Distribution Width 15.3 % (11.6-14.8)
[2018-10-11 13:26] LABS: INR 1.7 (0.9-1.3); Prothrombin Time 19.6 SECONDS (10.1-12.7)
[2018-10-11 13:33] LABS: Alanine Aminotransferase 28 IU/L (21-72); Albumin 3.6 g/dL (3.5-5.0); Albumin Globulin Ratio 1.3 (1.0-2.8); Alkaline Phosphatase 88 U/L (38-126); Aspartate Aminotransferase 40 IU/L (17-59); BUN Creatinine Ratio 16.3 (6-22); Bilirubin Total 0.9 mg/dL (0.2-1.3); Blood Urea Nitrogen 31 mg/dL (9-20); Calcium 8.9 mg/dL (8.4-10.2); Carbon Dioxide 27 mmol/L (22-32); Chloride 104 mmol/L (98-107); Globulin 2.8 g/dL (1.7-4.1); Glucose 122 mg/dL (80-110); HEMOLYSIS < 15 (0-50); Potassium 4.6 mmol/L (3.4-5.1); Sodium 140 mmol/L (137-145); Total Protein 6.4 g/dL (6.3-8.2)
[2018-10-11 13:42] LABS: B Type Natriuretic Peptide 364 (<100)
[2018-10-11 14:02] LABS: Thyroid Stimulating Hormone 3.03 uIU/mL (0.47-4.68)
[2018-10-19 14:45] LABS: Intrinsic Factor Blocking Aby NEGATIVE
== END ==
PROVIDERS: PCP Internal Medicine; Visit Provider Internal Medicine
DX: I48.2 Chronic atrial fibrillation (principal); E53.8 Deficiency of other specified B group vitamins; I50.32 Chronic diastolic (congestive) heart failure; E03.9 Hypothyroidism, unspecified; L97.901 Non-pressure chronic ulcer of unspecified part of unspecified lower leg limited to breakdown of skin; N18.9 Chronic kidney disease, unspecified
CPT/HCPCS: 36415; 80053; 83880; 84443; 85025; 85610; 86340

== ENCOUNTER → 2018-11-01 14:16 | Outpatient (CLI) | payer OTHER, SELFPAY ==
[2017-09-16 01:20] VITALS: BMI 39.2
--- NOTE | 2018-11-01 | DI.MRI.S_ITS ---
PROCEDURE: MR CERVICAL SPINE WO CON INDICATIONS: cervical root disorders TECHNIQUE: Noncontrast sagittal T1 spin echo and T2 fast spin echo, sagittal STIR, foraminal oblique sagittal T2 fast spin echo, and axial gradient echo or T2 fast spin echo through the cervical spine. COMPARISON: None. FINDINGS: Image quality: Excellent. Alignment and Curvature: Straightening of the normal lordotic curvature. Grade 1 retrolisthesis of C3 on C4, C4 and C5. Bone Marrow: Chronic partial osseous fusion of C5-C6. Multilevel degenerative endplate sclerosis and spurring. Diffuse facet arthropathy. Spinal Cord: Visualized spinal cord has normal size and signal. No cerebellar tonsillar herniation. Paraspinous Soft Tissues: No paravertebral masses. Prevertebral soft tissues are normal in thickness. C2-C3: No syncope no narrowing. Mild bilateral foraminal stenoses C3-C4: Moderate central canal narrowing with effacement of the anterior posterior thecal sac. Moderate to severe bilateral foraminal stenosis with nerve root compression C4-C5: Mild central canal narrowing. Moderate left foraminal stenosis. Severe right foraminal narrowing with nerve root compression C5-C6: Mild canal narrowing. Mild right foraminal stenosis. Moderate left foraminal narrowing without nerve root compression C6-C7: Minimal canal narrowing. Mild right foraminal stenosis. Severe left foraminal stenosis with nerve root compression C7-T1: No canal or foraminal stenoses IMPRESSION: Multilevel cervical spondylosis as detailed above, and facet disease. Moderate C3-C4 canal stenosis. Mild C4-C5 and C5-C6 canal narrowing. Severe left C6-C7 foraminal narrowing. Moderate to severe bilateral C3-C4 foraminal stenoses. Severe right C4-C5 foraminal stenosis. Dictated by: Alejo Mejía M.D. on 11/01/2018 at 15:23 Approved by: Alejo Mejía M.D. on 11/01/2018 at 15:29
== END ==
PROVIDERS: PCP Internal Medicine; Visit Provider Internal Medicine
DX: S83.511A Sprain of anterior cruciate ligament of right knee, initial encounter (principal); M71.21 Synovial cyst of popliteal space [Baker], right knee; M47.812 Spondylosis without myelopathy or radiculopathy, cervical region
CPT/HCPCS: 72141

== ENCOUNTER 2018-11-02 19:03 | Emergency (ER) | payer OTHER, SELFPAY ==
[2017-09-16 01:20] VITALS: BMI 39.2
[2018-11-02 19:13] VITALS: BP 120/60; PULSE 69; RESP 24; TEMP 36.1; O2SAT 96
--- NOTE | 2018-11-02 19:27 | ED_ITS ---
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 He does see pain management. He has seen orthopedics in the past. He states that he has had steroid injections in his lower back in the past. He is here for evaluation of acute on chronic lower back pain does radiating down to his right leg. He does have tramadol at home. He was also recently given a prescription for hydrocodone. He denies any urinary symptoms. states that he has been constipated recently. He has an appointment with his picture painter tomorrow. Related Data Home Medications Medication Instructions Recorded Confirmed tramadol 100 mg PO TID PRN #0 02/03/16 07/20/18 Novolog Mix 70-30FlexPen U-100 45 units SQ QAM #0 02/17/17 07/20/18 levothyroxine 50 mcg PO MOTUWETHFRSA 09/16/17 07/20/18 furosemide [Lasix] 80 mg PO DAILY 07/20/18 07/20/18 insulin NPH and regular human 30 units SUBCUT QPM 07/20/18 07/20/18 [Novolin 70-30 FlexPen U-100] levothyroxine 100 mcg PO HOGAN 07/20/18 07/20/18 metoprolol succinate 100 mg PO DAILY 07/20/18 07/20/18 warfarin [Coumadin] 5 mg PO MOWEFR 07/20/18 07/20/18 Previous Rx's Medication Instructions Recorded warfarin [Coumadin] 2.5 mg PO SuTuThSa@1800 #30 02/19/17 prednisone 20 mg PO DAILY 3 Days #3 tab 11/02/18 Allergies Allergy/AdvReac Type Severity Reaction Status Date / Time Penicillins Allergy Unknown Verified 07/20/18 11:19 Review of Systems Constitutional Denies fever(s) Cardiovascular Denies chest pain and Denies dyspnea Respiratory Denies dyspnea Gastrointestinal Gastrointestinal: Denies abdominal pain Genitourinary Denies urinary hesitancy and Denies urinary incontinence Musculoskeletal Reports back pain, Denies atrophy and Denies arthralgias Integumentary/Breasts Denies rash Neurologic Reports paresthesias Hematologic/Lymphatic Denies easy bleeding and Denies easy bruising REPLACED BY [facility] Medical History Diabetes (Acute) Chronic atrial fibrillation with RVR (Acute) Hypothyroidism (Acute) Cancer of left ear (Acute) E coli infection (Acute) Hernia of abdominal cavity (Acute) Inguinal hernia bilateral, non-recurrent (Acute) Melanoma (Acute) Prostate cancer (Acute) Social History household members: family Smoking Status: Never smoker Exam Initial Vital Signs Initial Vital Signs: Vital Signs Temperature 97.0 F L 11/02/18 19:13 Pulse Rate 69 11/02/18 19:13 Respiratory Rate 24 11/02/18 19:13 Blood Pressure 120/60 11/02/18 19:13 Pulse Oximetry 96 11/02/18 19:13 Const General: cooperative, well developed and well groomed Orientation: alert, awake and oriented x3 HENMT Head: normal to inspection and normocephalic Resp Effort & Inspection: normal respiratory effort Auscultation: clear to auscultation bilaterally Cardio Rate: regular rate Rhythm: regular rhythm Back/Spine/Pelvis Thoracic/Lumbar Spine: lumbar spinal tenderness Skin Lesions: no lesions Rashes: no rashes Neuro General: alert and awake Cognition: normal cognition Speech: speech normal Motor: muscle tone normal throughout Extrem General: normal to inspection and capillary refill normal Psych Appearance: grossly normal and well kempt Course Orders Ordered: Discontinued Medications Hydromorphone HCl (Dilaudid) 1 mg IM NOW ONE Stop: 11/02/18 19:36 Last Admin: 11/02/18 19:41 Dose: 1 mg Prednisone (Deltasone) 20 mg PO NOW ONE Stop: 11/02/18 20:18 Vital Signs - 8 hr 11/02/18 19:13 11/02/18 20:45 Temperature 97.0 F L Pulse Rate 69 69 Respiratory Rate 24 20 Blood Pressure 120/60 109/70 Pulse Oximetry 96 97 MDM - Back Pain/Injury MDM Narrative Medical decision making narrative: Patient with subjective findings only here in the emergency department. He was given a shot of Dilaudid which did seemed to help his symptoms somewhat. No fevers. No symptoms concerning for cauda equina. He does have a picture painter appointment tomorrow. Will send home with a short course of steroids. We did discuss the importance of him checking his blood sugars at home because of this. He expressed understanding. Will hold on further workup for now. No indication for radiologic studies. Patient was given return precautions and follow-up instructions. He expressed understanding and agreement plan. Discharge Plan Departure Patient Disposition: Home Clinical Impression: Lumbar radiculopathy Discharge Date/Time: 11/02/18 20:45 Interventions: ED Discharge Assessment Last Done: 11/02/18 20:45 Instructions: DI for Low Back Pain Activity Restrictions/Additional Instructions: With the prednisone that you were given today you do need to check your blood sugars at home. Keep all of your schedule medical appointments especially with your picture painter tomorrow. Return to the emergency department for any new or worsening symptoms Prescriptions: New prednisone 20 mg tablet 20 mg PO DAILY 3 Days Qty: 3 RF: 0 No Action tramadol 50 MG tablet 100 mg PO TID PRN (Reason: pain) Qty: 0 RF: 0 Novolog Mix 70-30FlexPen U-100 100 UNIT/1 ML insulin pen 45 units SQ QAM Qty: 0 RF: 0 warfarin [Coumadin] 2.5 MG tablet 2.5 mg PO SuTuThSa@1800 Qty: 30 RF: 0 levothyroxine 50 mcg Tablet 50 mcg PO MOTUWETHFRSA RF: 0 levothyroxine 50 mcg Tablet 100 mcg PO HOGAN RF: 0 warfarin [Coumadin] 5 mg Tablet 5 mg PO MOWEFR RF: 0 Novolin 70-30 FlexPen U-100 100 unit/mL (70-30) Insulin Pen 30 units subcut QPM RF: 0 metoprolol succinate 100 MG tablet extended release 24 hr 100 mg PO DAILY RF: 0 furosemide [Lasix] 80 MG tablet 80 mg PO DAILY RF: 0 Referrals: Lakisha Dangelo MD [Primary Care Provider] -
[2018-11-02] MEDS: HYDROMORPHONE 1 MG INJ IM (19:41)
[2018-11-02 20:45] VITALS: BP 109/70; PULSE 69; RESP 20; O2SAT 97
--- NOTE | 2018-11-02 20:48 | PC.NURSE ---
prednisone given as ordered, unable to document in eMar r/t downtime
== END 2018-11-02 20:45 | disposition home or self-care (01) ==
PROVIDERS: Emergency Provider Emergency Medicine; PCP Internal Medicine
DX: M54.16 Radiculopathy, lumbar region (principal)
CPT/HCPCS: 96372; 99282; 99283; J1170

== ENCOUNTER → 2018-11-17 10:03 | Outpatient (CLI) | payer OTHER, SELFPAY ==
[2017-09-16 01:20] VITALS: BMI 39.2
--- NOTE | 2018-11-17 11:00 | DI.CT.S_ITS ---
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 5 mm thick coronal and sagittal reformats were performed. For radiation dose reduction, the following was used: automated exposure control, adjustment of mA and/or kV according to patient size. COMPARISON: [facility], CT, ABDOMEN/PELVIS WITH CONTRAST, 02/03/2016, 13:16. [facility], CT, ABDOMEN/PELVIS WITH CONTRAST, 05/27/2008, 11:06. [facility], CT, THORAX WITHOUT CONTRAST, 11/08/2016, 21:55. FINDINGS: Image quality: Excellent. ABDOMEN: Lung bases: Lung bases are clear. Heart size is normal. Solid organs: There is a 1.2 cm nodule in the posterior segment of the right hepatic lobe, probably a hepatic cyst. Liver is normal in size and enhancement. Gallbladder is surgically absent. Biliary system is non-dilated. Pancreas enhances normally. Spleen is normal in size and enhancement. No adrenal nodules. There is a 5 mm non-obstructive stone in the right kidney. A 2 mm non-obstructive stone is seen in the superior pole the left kidney. Kidneys are normal in size and enhancement, without hydronephrosis. There is a 1.1 cm low density nodule in the posterior cortex of the inferior left kidney, probably a cyst. Peritoneum and bowel: Stomach, small bowel, and colon loops are normal in caliber and wall thickness. No free fluid or air. Nodes and vessels: No retroperitoneal or mesenteric adenopathy. Aorta and inferior vena cava are normal in caliber. Miscellaneous: No ventral hernias. PELVIS: Genitourinary: Bladder wall thickness is normal. Small nodules or nodular appearance in the bladder base appears unchanged from the last CT dated 02/03/2016. Miscellaneous: No inguinal hernias or adenopathy. Bones: There is osteopenia. No vertebral body compression fractures. IMPRESSION: 1. No acute intra-abdominal/pelvic process. 2. Bilateral nonobstructive renal calculi. No hydronephrosis. 3. Small nodules or nodular appearance in the bladder base, similar comparison of the 02/03/2016. Please correlate with findings on cystoscopy. 4. A 1.2 cm hepatic cyst and a small left renal cyst. 5. Osteopenia Dictated by: Krystal Rowe M.D. on 11/17/2018 at 14:16 Approved by: Krystal Rowe M.D. on 11/17/2018 at 18:00
[2018-11-17 11:24] LABS: INR 3.8 (0.9-1.3); Prothrombin Time 44.8 SECONDS (10.1-12.7)
[2018-11-17 11:29] LABS: BUN Creatinine Ratio 21.2 (6-22); Blood Urea Nitrogen 36 mg/dL (9-20); Estimated Glomerular Filt Rate 38.7 mL/min (>60)
[2018-11-22 20:26] LABS: Intrinsic Factor Blocking Aby NEGATIVE
== END ==
PROVIDERS: PCP Internal Medicine; Visit Provider Internal Medicine
DX: E11.42 Type 2 diabetes mellitus with diabetic polyneuropathy (principal); N20.0 Calculus of kidney; N28.1 Cyst of kidney, acquired; K76.89 Other specified diseases of liver; M85.80 Other specified disorders of bone density and structure, unspecified site; E53.8 Deficiency of other specified B group vitamins; I48.2 Chronic atrial fibrillation
CPT/HCPCS: 36415; 74177; 82565; 84520; 85610; 86340; Q9967

== ENCOUNTER → 2018-12-01 11:54 | Outpatient (CLI) | payer OTHER, SELFPAY ==
[2017-09-16 01:20] VITALS: BMI 39.2
[2018-12-01 12:50] LABS: BUN Creatinine Ratio 16.7 (6-22); Blood Urea Nitrogen 30 mg/dL (9-20); Estimated Glomerular Filt Rate 36.2 mL/min (>60)
== END ==
PROVIDERS: PCP Internal Medicine; Visit Provider Internal Medicine
DX: E11.9 Type 2 diabetes mellitus without complications (principal)
CPT/HCPCS: 36415; 82565; 84520

== ENCOUNTER → 2018-12-08 09:43 | Outpatient (CLI) | payer OTHER, SELFPAY ==
[2017-09-16 01:20] VITALS: BMI 39.2
== END ==
PROVIDERS: PCP Internal Medicine; Visit Provider Internal Medicine
DX: G54.2 Cervical root disorders, not elsewhere classified (principal)
CPT/HCPCS: 95885; 95886; 95910

== ENCOUNTER → 2018-12-12 10:55 | Outpatient (CLI) | payer OTHER, SELFPAY ==
[2017-09-16 01:20] VITALS: BMI 39.2
[2018-12-12 11:53] LABS: INR 1.9 (0.9-1.3); Prothrombin Time 22.4 SECONDS (10.1-12.7)
[2018-12-12 12:49] LABS: Prostate Specific Antigen 4.61 ng/mL (0.10-4.00)
== END ==
PROVIDERS: PCP Internal Medicine; Visit Provider Internal Medicine
DX: I48.2 Chronic atrial fibrillation (principal); C61 Malignant neoplasm of prostate; I50.32 Chronic diastolic (congestive) heart failure; E03.9 Hypothyroidism, unspecified; L97.901 Non-pressure chronic ulcer of unspecified part of unspecified lower leg limited to breakdown of skin; N18.9 Chronic kidney disease, unspecified; E11.9 Type 2 diabetes mellitus without complications
CPT/HCPCS: 36415; 84153; 85610

== ENCOUNTER → 2018-12-23 18:24 | Outpatient (ROUT) | payer OTHER, SELFPAY ==
[2017-09-16 01:20] VITALS: BMI 39.2
[2018-12-23 18:38] LABS: Alanine Aminotransferase 43 IU/L (21-72); Albumin 3.4 g/dL (3.5-5.0); Albumin Globulin Ratio 1.2 (1.0-2.8); Alkaline Phosphatase 100 U/L (38-126); Aspartate Aminotransferase 57 IU/L (17-59); BUN Creatinine Ratio 20.6 (6-22); Bilirubin Total 0.8 mg/dL (0.2-1.3); Blood Urea Nitrogen 33 mg/dL (9-20); Calcium 8.8 mg/dL (8.4-10.2); Carbon Dioxide 29 mmol/L (22-32); Chloride 104 mmol/L (98-107); Estimated Glomerular Filt Rate 41.5 mL/min (>60); Globulin 2.9 g/dL (1.7-4.1); Glucose 135 mg/dL (80-110); HEMOLYSIS < 15 (0-50); Potassium 4.7 mmol/L (3.4-5.1); Sodium 140 mmol/L (137-145); Total Protein 6.3 g/dL (6.3-8.2)
[2018-12-23 18:55] LABS: Add Manual Diff / Slide Review NO; Basophils Absolute Auto 0 /uL (0-100); Basophils Percent Auto 0.4 % (0-2); Eosinophils Absolute Auto 200 /uL (0-450); Eosinophils Percent Auto 2.7 % (2-4); Hematocrit 34.3 % (41-53); Hemoglobin 11.4 g/dL (13.5-17.5); Lymphocytes Absolute Auto 1600 /uL (1100-4500); Lymphocytes Percent Auto 24.9 % (25-40); Mean Corpuscular HGB Conc 33.1 % (30-36); Mean Corpuscular Hemoglobin 28.8 PG (26-34); Mean Corpuscular Volume 86.9 fL (80-100); Monocytes Absolute Auto 500 /uL (0-900); Monocytes Percent Auto 8.2 % (3-14); Neutrophils Absolute Auto 4000 /uL (1500-7000); Neutrophils Percent Auto 63.8 % (50-75); Platelet Count 180 X10^3/uL (150-400); Red Blood Cell Count 3.95 X10^6/uL (4.5-5.9); Red Cell Distribution Width 15.9 % (11.6-14.8); White Blood Cell Count 6.3 X10^3/uL (4.5-11.0)
[2018-12-23 19:26] LABS: B Type Natriuretic Peptide 339 (<100)
== END ==
PROVIDERS: PCP Internal Medicine; Visit Provider Internal Medicine
DX: R60.9 Edema, unspecified (principal); G56.22 Lesion of ulnar nerve, left upper limb; N18.3 Chronic kidney disease, stage 3 (moderate)
CPT/HCPCS: 80053; 83880; 85025

== ENCOUNTER → 2019-01-11 14:40 | Outpatient (CLI) | payer OTHER, SELFPAY ==
[2017-09-16 01:20] VITALS: BMI 39.2
[2019-01-11 16:49] LABS: INR 1.7 (0.9-1.3); Prothrombin Time 19.5 SECONDS (10.1-12.7)
== END ==
PROVIDERS: PCP Internal Medicine; Visit Provider Internal Medicine
DX: E11.9 Type 2 diabetes mellitus without complications (principal); I48.20 Chronic atrial fibrillation, unspecified
CPT/HCPCS: 36415; 85610

== ENCOUNTER → 2019-01-30 11:33 | Outpatient (CLI) | payer OTHER, SELFPAY ==
[2017-09-16 01:20] VITALS: BMI 39.2
[2019-01-30 12:44] LABS: INR 2.2 (0.9-1.3); Prothrombin Time 25.9 SECONDS (10.1-12.7)
== END ==
PROVIDERS: PCP Internal Medicine; Visit Provider Internal Medicine
DX: I87.2 Venous insufficiency (chronic) (peripheral) (principal)
CPT/HCPCS: 36415; 85610

== ENCOUNTER → 2019-03-13 11:12 | Outpatient (CLI) | payer OTHER, SELFPAY ==
[2017-09-16 01:20] VITALS: BMI 39.2
[2019-03-13 12:19] LABS: INR 3.3 (0.9-1.3); Prothrombin Time 38.7 SECONDS (10.1-12.7)
== END ==
PROVIDERS: PCP Internal Medicine; Visit Provider Internal Medicine
DX: I48.20 Chronic atrial fibrillation, unspecified (principal)
CPT/HCPCS: 36415; 85610

== ENCOUNTER → 2019-04-12 12:55 | Outpatient (CLI) | payer OTHER, SELFPAY ==
[2017-09-16 01:20] VITALS: BMI 39.2
[2019-04-12 13:36] LABS: INR 2.5 (0.9-1.3)
== END ==
PROVIDERS: PCP Internal Medicine; Visit Provider Internal Medicine
DX: I48.20 Chronic atrial fibrillation, unspecified (principal)
CPT/HCPCS: 36415; 85610

== ENCOUNTER → 2019-04-25 13:39 | Outpatient (CLI) | payer OTHER, SELFPAY ==
[2017-09-16 01:20] VITALS: BMI 39.2
[2019-04-25 14:23] LABS: INR 2.5 (0.9-1.3)
== END ==
PROVIDERS: PCP Internal Medicine; Referring Provider Internal Medicine; Visit Provider Internal Medicine
DX: I46.2 Cardiac arrest due to underlying cardiac condition (principal)
CPT/HCPCS: 36415; 85610

== ENCOUNTER 2019-07-11 10:44 | Inpatient (IN) | payer OTHER, SELFPAY ==
[2017-09-16 01:20] VITALS: BMI 39.2
[2019-07-11] VITALS (11 sets, daily range): BP systolic 94–130; BP diastolic 57–71; PULSE 85–109; RESP 14–28; TEMP 36.3–37.3; O2SAT 92–99; BMI 36.4
--- NOTE | 2019-07-11 10:53 | ED_ITS ---
HPI - General Adult General Chief complaint: Diabetic Problem Stated complaint: weakness/sob/hyperglycemia Time Seen by Provider: 07/11/19 10:50 History of Present Illness HPI narrative: 83-year-old gentleman who lives independently with history of diabetes, hypothyroidism, atrial fibrillation on Coumadin, hypertension and coronary artery disease with increasing weakness and back pain for approximately a week. He does have a history of chronic atrial fibrillation. Medics report that there were 2 other people that all share the home relationships warrant entirely clear. Patient is slightly confused to overall events and it is unclear if this is new or chronic. He complains that he is breathing heavily but not particularly short of breath. He does not report any lower extremity pain or change to his chronic lower extremity edema. On further questioning he notes he did have an episode of chest pain last night associated with increased dyspnea and he took ?1 of those little brown [id number] pills? with the pain resolving. Medics report that he has been in bed with increasing weakness for the last 5 days it is unclear from the patient how much time he spent in bed however skin care and overall cleanliness suggest he has been up and around and doing self-care activities. Related Data Home Medications Medication Instructions Recorded Confirmed tramadol 100 mg PO TID PRN #0 02/03/16 07/11/19 levothyroxine 50 mcg PO [id number] 09/16/17 07/11/19 furosemide [Lasix] 80 mg PO DAILY 07/20/18 07/11/19 insulin NPH and regular human 30 units SUBCUT QPM 07/20/18 07/11/19 [Novolin 70-30 FlexPen U-100] metoprolol succinate 100 mg PO DAILY 07/20/18 07/11/19 warfarin [Coumadin] 5 mg PO MOWEFR 07/20/18 07/11/19 ferrous sulfate [Iron (ferrous 325 mg PO DAILY 07/11/19 07/11/19 sulfate)] Allergies Allergy/AdvReac Type Severity Reaction Status Date / Time Penicillins Allergy Unknown Verified 07/11/19 11:03 Review of Systems Review of Systems Narrative: Pertinent positive and negative findings as per HPI Questioning is somewhat limited due to wandering focus and slight confusion but Remainder of review of systems is otherwise unremarkable for Constitutional: Fevers, chills, ENT: No sore throat, neck pain, ear pain GI: Nausea, vomiting, diarrhea, change in bowel habits, black or bloody stools : Dysuria, hematuria, flank pain MS: numbness, joint swelling or warmth Skin: Rashes, nonhealing lesions Psych: Depression, anxiety, suicidal ideation Endocrine: heat or cold intolerance, very dry skin Allergy: Seasonal rhinorrhea, itchy eyes Patient History Medical History Cancer of left ear (Acute) Chronic atrial fibrillation with RVR (Acute) Diabetes (Chronic) E coli infection (Acute) Hernia of abdominal cavity (Acute) Hypothyroidism (Acute) Inguinal hernia bilateral, non-recurrent (Acute) Melanoma (Acute) Prostate cancer (Acute) Social History household members: family Smoking Status: Never smoker Smoking Status: Never smoker alcohol intake frequency: 0-2 drinks per day Substance Use Type: does not use Exam Narrative Exam Narrative: General: Healthy appearing, in no acute distress. Able to speak in full sentences however his answers are somewhat convoluted HEENT: Moist mucous membranes, normal sclera with reactive pupils, Neck: + JVD, supple Respiratory: Lungs it with rales to mid lung ron without rhonchi. Full and symmetrical air movement Cardiac: Irregularly irregular tachycardia with no murmurs no bruits Abdomen: Soft nontender good bowel tones, no flank pain Skin: Warm and dry, chronic venous stasis changes without any evidence of cellulitis Neurologic: Globally weak but Grossly neurologically intact with no obvious asymmetries or abnormalities Extremities: No trauma, 3+ bilateral lower extremity edema Psych: Cooperative, with appropriate speech fluency and content Initial Vital Signs Initial Vital Signs: Vital Signs Temperature 97.3 F L 07/11/19 10:45 Pulse Rate 109 H 07/11/19 10:45 Respiratory Rate 24 07/11/19 10:45 Blood Pressure 130/71 07/11/19 10:45 Pulse Oximetry 99 07/11/19 10:45 Course Orders Ordered: ED Orders 07/11/19 10:50 Complete Blood Count AUTO DIFF Stat Comprehensive Metabolic Panel Stat Ketones (Beta-Hydroxybutyrate) Stat Lactate (Lactic Acid) Stat Lactate Dehydrogenase Stat Lipase Stat NT-proBNP (BNP-Adult 18+) Stat Procalcitonin Stat Prothrombin Time INR Stat Troponin I Stat Venous Blood Gas Stat 07/11/19 11:05 XR chest 1V Stat 07/11/19 11:27 Blood Culture Stat 07/11/19 12:03 CT abdomen pelvis wo con Stat 07/11/19 13:18 Urinalysis and Microscopic Stat INSULIN DRIP PREMIX (Myxredlin Drip Premix) 100 unit in 100 mls @ 6 mls/hr IV TITRATE GARRETT; Protocol Last Admin: 07/11/19 12:15 Dose: 6 mls/hr Documented by: SHAD Cosigned by: LAZARUS Sodium Chloride (Normal Saline 0.9%) 1,000 mls @ 125 mls/hr IV CONT GARRETT Last Admin: 07/11/19 12:16 Dose: 125 mls/hr Documented by: SHAD Sodium Chloride (Normal Saline 0.9%) 1,000 mls @ 1,000 mls/hr IV BOLUS ONE Stop: 07/11/19 14:21 Last Admin: 07/11/19 13:35 Dose: 1,000 mls/hr Documented by: MARCUS Discontinued Medications Ceftriaxone Sodium/Dextrose (Rocephin) 2 gm in 50 mls @ 100 mls/hr IV NOW ONE Stop: 07/11/19 12:24 Last Infusion: 07/11/19 13:13 Dose: 0 mls/hr Documented by: Admin: 07/11/19 12:13 Dose: 100 mls/hr Documented by: SHAD Metronidazole (Flagyl) 500 mg in 100 mls @ 100 mls/hr IV NOW ONE Stop: 07/11/19 12:54 Last Admin: 07/11/19 12:13 Dose: 100 mls/hr Documented by: SHAD Lidocaine HCl (Urojet) 5 ml TOP NOW ONE Stop: 07/11/19 12:50 Last Admin: 07/11/19 13:15 Dose: 5 ml Documented by: MARCUS Vital Signs Vital signs: Vital Signs - 8 hr 07/11/19 10:45 07/11/19 11:15 07/11/19 11:30 Temperature 97.3 F L Pulse Rate 109 H 102 H 97 H Respiratory Rate 24 14 15 Blood Pressure 130/71 Blood Pressure [Right Arm] 108/62 106/58 L Pulse Oximetry 99 07/11/19 11:45 07/11/19 12:00 07/11/19 12:30 Temperature Pulse Rate 92 H 90 90 Respiratory Rate 17 28 H 16 Blood Pressure Blood Pressure [Right Arm] 122/58 L 112/67 99/58 L Pulse Oximetry 92 98 92 07/11/19 13:15 07/11/19 13:30 Temperature Pulse Rate 89 96 H Respiratory Rate 20 16 Blood Pressure Blood Pressure [Right Arm] 103/58 L 94/65 Pulse Oximetry 96 96 Medical Decision Making Medical Records Medical records reviewed: Yes I reviewed the patient's medical records. Medical records narrative: POLST form is available and indicates DNR but full treatment Lab Data Lab results reviewed: Yes I reviewed the patient's lab results. Lab results narrative: Lactic acid of 5.6 Blood sugar of 594 White count of 18.8 INR of 2.8 Elevated bili AST ALT and alkaline phosphatase Result diagrams: 07/11/19 10:50 07/11/19 10:50 Labs: Lab Results 07/11/19 07/11/19 07/11/19 Range/Units 10:50 10:50 10:50 WBC 18.8 H (4.5-11.0) X10^3/uL RBC 3.92 L (4.5-5.9) X10^6/uL Hgb 11.6 L (13.5-17.5) g/dL Hct 35.8 L (41-53) % MCV 91.4 (80-100) fL MCH 29.6 (26-34) PG MCHC 32.4 (30-36) % RDW 14.5 (11.6-14.8) % Plt Count 154 (150-400) X10^3/uL Neut % (Auto) 92.8 H (50-75) % Lymph % (Auto) 1.9 L (25-40) % [place] % (Auto) 5.1 (3-14) % Eos % (Auto) 0.1 L (2-4) % Baso % (Auto) 0.1 (0-2) % Neut # (Auto) 44924 H (0021-3564) /uL Lymph # (Auto) 400 L (2050-3584) /uL [place] # (Auto) 1000 H (0-900) /uL Eos # (Auto) 0 (0-450) /uL Baso # (Auto) 0 (0-100) /uL PT (10.1-12.7) SECONDS INR (0.9-1.3) VBG pH 7.33 (7.33-7.43) VBG pCO2 37.1 L (45-50) mmHg VBG pO2 45 (35-45) mmHg VBG HCO3 20 L (23-28) mmol/L VBG Total CO2 21 L (24-29) mmol/L VBG O2 Saturation 78 H (70-75) % VBG Base Excess -6.0 L (0-4) mmol/L Sodium 136 L (137-145) mmol/L Potassium 3.9 (3.4-5.1) mmol/L Chloride 104 (98-107) mmol/L Carbon Dioxide 22 (22-32) mmol/L BUN 34 H (9-20) mg/dL Creatinine 1.87 H (0.66-1.25) mg/dL Estimated GFR 34.7 L (>60) mL/min BUN/Creatinine Ratio 18.2 (6-22) Glucose 594 H* (80-110) mg/dL Lactate (0.7-2.1) mmol/L Calcium 8.5 (8.4-10.2) mg/dL Total Bilirubin 2.9 H (0.2-1.3) mg/dL AST 474 H (17-59) IU/L ALT 265 H (<50) IU/L Alkaline Phosphatase 252 H (38-126) U/L Lactate Dehydrogenase (313-618) U/L Troponin I (0.01-0.034) ng/mL NT-Pro-B Natriuret Pep (<450) pg/mL Total Protein 6.5 (6.3-8.2) g/dL Albumin 3.3 L (3.5-5.0) g/dL Globulin 3.2 (1.7-4.1) g/dL Albumin/Globulin Ratio 1.0 (1.0-2.8) Lipase 9330 H (23-300) U/L Procalcitonin (<0.5) ng/mL Urine Color Urine Appearance Urine pH (4.5-8.0) Ur Specific [place] (1.000-1.035) Urine Protein (Negative) Urine Glucose (UA) (Negative) g/dL Urine Ketones (NEGATIVE) Urine Occult Blood (Negative) Urine Nitrate (Negative) Urine Bilirubin (NEGATIVE) Urine Urobilinogen (0.2) E.U./dL Ur Leukocyte Esterase (NEGATIVE) Urine RBC (0-5/HPF) Urine WBC (0-5/HPF) Urine Bacteria (None) Ur Culture Indicated? Micro UA Comment Ketones 0.37 H (<0.27) mmol/L 07/11/19 07/11/19 07/11/19 Range/Units 10:50 10:50 10:50 WBC (4.5-11.0) X10^3/uL RBC (4.5-5.9) X10^6/uL Hgb (13.5-17.5) g/dL Hct (41-53) % MCV (80-100) fL MCH (26-34) PG MCHC (30-36) % RDW (11.6-14.8) % Plt Count (150-400) X10^3/uL Neut % (Auto) (50-75) % Lymph % (Auto) (25-40) % [place] % (Auto) (3-14) % Eos % (Auto) (2-4) % Baso % (Auto) (0-2) % Neut # (Auto) (6070-2373) /uL Lymph # (Auto) (7563-3973) /uL [place] # (Auto) (0-900) /uL Eos # (Auto) (0-450) /uL Baso # (Auto) (0-100) /uL PT 27.4 H (10.1-12.7) SECONDS INR 2.4 H (0.9-1.3) VBG pH (7.33-7.43) VBG pCO2 (45-50) mmHg VBG pO2 (35-45) mmHg VBG HCO3 (23-28) mmol/L VBG Total CO2 (24-29) mmol/L VBG O2 Saturation (70-75) % VBG Base Excess (0-4) mmol/L Sodium (137-145) mmol/L Potassium (3.4-5.1) mmol/L Chloride (98-107) mmol/L Carbon Dioxide (22-32) mmol/L BUN (9-20) mg/dL Creatinine (0.66-1.25) mg/dL Estimated GFR (>60) mL/min BUN/Creatinine Ratio (6-22) Glucose (80-110) mg/dL Lactate 5.6 H* (0.7-2.1) mmol/L Calcium (8.4-10.2) mg/dL Total Bilirubin (0.2-1.3) mg/dL AST (17-59) IU/L ALT (<50) IU/L Alkaline Phosphatase (38-126) U/L Lactate Dehydrogenase (313-618) U/L Troponin I < 0.012 (0.01-0.034) ng/mL NT-Pro-B Natriuret Pep (<450) pg/mL Total Protein (6.3-8.2) g/dL Albumin (3.5-5.0) g/dL Globulin (1.7-4.1) g/dL Albumin/Globulin Ratio (1.0-2.8) Lipase (23-300) U/L Procalcitonin (<0.5) ng/mL Urine Color Urine Appearance Urine pH (4.5-8.0) Ur Specific [place] (1.000-1.035) Urine Protein (Negative) Urine Glucose (UA) (Negative) g/dL Urine Ketones (NEGATIVE) Urine Occult Blood (Negative) Urine Nitrate (Negative) Urine Bilirubin (NEGATIVE) Urine Urobilinogen (0.2) E.U./dL Ur Leukocyte Esterase (NEGATIVE) Urine RBC (0-5/HPF) Urine WBC (0-5/HPF) Urine Bacteria (None) Ur Culture Indicated? Micro UA Comment Ketones (<0.27) mmol/L 07/11/19 07/11/19 07/11/19 Range/Units 10:50 10:50 10:50 WBC (4.5-11.0) X10^3/uL RBC (4.5-5.9) X10^6/uL Hgb (13.5-17.5) g/dL Hct (41-53) % MCV (80-100) fL MCH (26-34) PG MCHC (30-36) % RDW (11.6-14.8) % Plt Count (150-400) X10^3/uL Neut % (Auto) (50-75) % Lymph % (Auto) (25-40) % [place] % (Auto) (3-14) % Eos % (Auto) (2-4) % Baso % (Auto) (0-2) % Neut # (Auto) (6918-9480) /uL Lymph # (Auto) (6714-2465) /uL [place] # (Auto) (0-900) /uL Eos # (Auto) (0-450) /uL Baso # (Auto) (0-100) /uL PT (10.1-12.7) SECONDS INR (0.9-1.3) VBG pH (7.33-7.43) VBG pCO2 (45-50) mmHg VBG pO2 (35-45) mmHg VBG HCO3 (23-28) mmol/L VBG Total CO2 (24-29) mmol/L VBG O2 Saturation (70-75) % VBG Base Excess (0-4) mmol/L Sodium (137-145) mmol/L Potassium (3.4-5.1) mmol/L Chloride (98-107) mmol/L Carbon Dioxide (22-32) mmol/L BUN (9-20) mg/dL Creatinine (0.66-1.25) mg/dL Estimated GFR (>60) mL/min BUN/Creatinine Ratio (6-22) Glucose (80-110) mg/dL Lactate (0.7-2.1) mmol/L Calcium (8.4-10.2) mg/dL Total Bilirubin (0.2-1.3) mg/dL AST (17-59) IU/L ALT (<50) IU/L Alkaline Phosphatase (38-126) U/L Lactate Dehydrogenase 1110 H (313-618) U/L Troponin I (0.01-0.034) ng/mL NT-Pro-B Natriuret Pep 5360 H (<450) pg/mL Total Protein (6.3-8.2) g/dL Albumin (3.5-5.0) g/dL Globulin (1.7-4.1) g/dL Albumin/Globulin Ratio (1.0-2.8) Lipase (23-300) U/L Procalcitonin 34.19 H (<0.5) ng/mL Urine Color Urine Appearance Urine pH (4.5-8.0) Ur Specific [place] (1.000-1.035) Urine Protein (Negative) Urine Glucose (UA) (Negative) g/dL Urine Ketones (NEGATIVE) Urine Occult Blood (Negative) Urine Nitrate (Negative) Urine Bilirubin (NEGATIVE) Urine Urobilinogen (0.2) E.U./dL Ur Leukocyte Esterase (NEGATIVE) Urine RBC (0-5/HPF) Urine WBC (0-5/HPF) Urine Bacteria (None) Ur Culture Indicated? Micro UA Comment Ketones (<0.27) mmol/L 07/11/19 07/11/19 Range/Units 13:18 13:18 WBC (4.5-11.0) X10^3/uL RBC (4.5-5.9) X10^6/uL Hgb (13.5-17.5) g/dL Hct (41-53) % MCV (80-100) fL MCH (26-34) PG MCHC (30-36) % RDW (11.6-14.8) % Plt Count (150-400) X10^3/uL Neut % (Auto) (50-75) % Lymph % (Auto) (25-40) % [place] % (Auto) (3-14) % Eos % (Auto) (2-4) % Baso % (Auto) (0-2) % Neut # (Auto) (7483-7036) /uL Lymph # (Auto) (0109-4935) /uL [place] # (Auto) (0-900) /uL Eos # (Auto) (0-450) /uL Baso # (Auto) (0-100) /uL PT (10.1-12.7) SECONDS INR (0.9-1.3) VBG pH (7.33-7.43) VBG pCO2 (45-50) mmHg VBG pO2 (35-45) mmHg VBG HCO3 (23-28) mmol/L VBG Total CO2 (24-29) mmol/L VBG O2 Saturation (70-75) % VBG Base Excess (0-4) mmol/L Sodium (137-145) mmol/L Potassium (3.4-5.1) mmol/L Chloride (98-107) mmol/L Carbon Dioxide (22-32) mmol/L BUN (9-20) mg/dL Creatinine (0.66-1.25) mg/dL Estimated GFR (>60) mL/min BUN/Creatinine Ratio (6-22) Glucose (80-110) mg/dL Lactate 2.9 H (0.7-2.1) mmol/L Calcium (8.4-10.2) mg/dL Total Bilirubin (0.2-1.3) mg/dL AST (17-59) IU/L ALT (<50) IU/L Alkaline Phosphatase (38-126) U/L Lactate Dehydrogenase (313-618) U/L Troponin I (0.01-0.034) ng/mL NT-Pro-B Natriuret Pep (<450) pg/mL Total Protein (6.3-8.2) g/dL Albumin (3.5-5.0) g/dL Globulin (1.7-4.1) g/dL Albumin/Globulin Ratio (1.0-2.8) Lipase (23-300) U/L Procalcitonin (<0.5) ng/mL Urine Color Yellow Urine Appearance Clear Urine pH 6.0 (4.5-8.0) Ur Specific [place] <=1.005 (1.000-1.035) Urine Protein Negative (Negative) Urine Glucose (UA) Negative (Negative) g/dL Urine Ketones Negative (NEGATIVE) Urine Occult Blood Negative (Negative) Urine Nitrate Negative (Negative) Urine Bilirubin Negative (NEGATIVE) Urine Urobilinogen 0.2 (0.2) E.U./dL Ur Leukocyte Esterase Negative (NEGATIVE) Urine RBC None seen (0-5/HPF) Urine WBC None seen (0-5/HPF) Urine Bacteria None seen (None) Ur Culture Indicated? Cult not indicated Micro UA Comment Microscopic normal Ketones (<0.27) mmol/L Point of Care Testing Glucose POC 500 Point of care testing: Point of Care Testing Glucose POC 500 Imaging Data Chest x-ray: Radiologist's Impression: IMPRESSION: Reduced inspiratory volume, large body habitus. Heart size is within normal limits. A slight degree of pulmonary edema conceivably could be superimposed. No pneumonia found. Dictated by: Riki Navarro M.D. on 07/11/2019 at 13:14 CT scan - abdomen/pelvis: Radiologist's Impression: IMPRESSION: 1. Mild fat stranding surrounding the pancreatic head as well as the adjacent small bowel. Overall appearance is suggestive of pancreatitis with secondary duodenal inflammation. While duodenalitis could be the primary source with secondary pancreatic inflammation, recommend clinical correlation to patient's symptoms. 2. Diverticulosis. Dictated by: Paola Mcdowell M.D. on 07/11/2019 at 13:18 ECG Data Attestation: I personally reviewed and interpreted this ECG as follows: Interpretation: Atrial fibrillation rate of 103 Left axis deviation with right bundle branch block No evidence of acute ischemia MDM Narrative Medical decision making narrative: 83-year-old gentleman presents with atrial fibrillation with rapid ventricular response, slight confusion global weakness elevated blood sugars episode of chest pain last night. Differential is vast. Full workup is initiated. As labs are returning, with elevated white blood cell count as well as elevated lactate will add Zosyn for sepsis of unclear etiology. With his heart failure and clinical evidence of volume overload and nicely maintained blood pressure I am not going to give additional fluids at this time. With the elevated transaminases and obstructive pattern I will order CT scan of the abdomen to see if that may be a source of his infection. Despite his elevated glucose he is no t showing a significant anion gap or significant acidosis to suggest DKA or hyperosmotic coma. Will treat with insulin and follow blood sugars. Lipase returns at 9330, CT confirms alvarado. No phlegmon. He is post cholecystectomy. At this time, diagnostic possibilites remain wide and incule: CHF - + clinically, but mild findings only on CXR for CHF, and proBNP 5360 Infection - leukocytosis but no source immediatly identified. It is not urine, no lung infection, no cellulitis no acute cholecystitis possibility of ascending cholangitis remains in the differential but given the lack of fever and pain seems less likely. Covered testing has been done again seems less likely given the clinical picture Acute coronary syndrome-concern given the clinical complain of chest pain last night however EKG and troponin do not suggest this Probable pancreatitis based on elevated lipase and CT scan no evidence of masses or obvious obstructive pathology on CT scan but obstructive pattern is apprecia tiara with LFTs. Hondo's Criteria for Pancreatitis Mortality from [employer] on 07/11/2019 RESULT SUMMARY: 5 points Hondo?s Criteria (On Admission) Severe pancreatitis likely. Consider ICU admission. 5 points Hondo?s Criteria (Cumulative) 40% predicted mortality. INPUTS: WBC > 16k ?> 1 = Yes Age > 55 ?> 1 = Yes Glucose >200 mg/dL (>10 mmol/L) ?> 1 = Yes AST > 250 ?> 1 = Yes LDH > 350 ?> 1 = Yes Hct drop >10% from admission ?> 0 = No BUN increase >5 mg/dL (>1.79 mmol/L) from admission ?> 0 = No Ca ?> 0 = No Arterial pO2 ?> 0 = No Base deficit (24 - HCO3) >4 mg/dL within 48 hours ?> 0 = No Fluid needs > 6L within 48 hours ?> 0 = No Hyperglycemia without evidence of DKA Clinically patient has remained stable to his emergency room visit. Initial concern was for heart failure based on his clinical exam, so fluids were not initiated. In light of further information regarding his pancreatitis and minimal heart failure opted to give him a L of fluid and then will reassess. Currently on an insulin drip for the hyperglycemia, may be beneficial to maintain tight glycemic control initially but he may also be transition to his usual insulin without the need for an insulin drip rather quickly. With initial concerns for sepsis unclear source but GI etiology suspected he started on ceftriaxone and metronidazole(penicillin allergy). If pancreatitis is the primary working diagnosis antibiotics may not need to be continued. Patient we be admitted to the intensive care unit. Code status is DNR but full treatment Case is reviewed with hospitalist, Dr. Jenkins. Critical Care Time Critical Care Time Critical Care Time: Yes Total Critical Care Time: 33 Attestation: Critical care time is separate from other billable procedures. This critical care time includes , review of records, and interpretation of data from labs, EKGs and imaging as well as managements of multi organ systems including neurologic, respiratory, cardiac, endocrine with multiple diagnostic possibilities initially presenting. Discharge Plan Departure Admit Date/Time: 07/11/19 14:12 Admit Provider: Rell Jenkins
[2019-07-11 11:03] LABS: HCO3 VBG 20 mmol/L (23-28); Oxygen Saturation VBG 78 % (70-75); PCO2 VBG 37.1 mmHg (45-50); PO2 VBG 45 mmHg (35-45); Total CO2 VBG 21 mmol/L (24-29); pH VBG 7.33 (7.33-7.43)
--- NOTE | 2019-07-11 11:05 | DI.RAD.S_ITS ---
PROCEDURE: XR CHEST 1V INDICATIONS: Dyspnea TECHNIQUE: One view of the chest was acquired. COMPARISON: [facility], CR, XR CHEST 2V, 09/05/2018, 15:11. [facility], CR, XR CHEST 1V, 07/27/2018, 0:55. FINDINGS: Surgical changes and devices: None. Lungs and pleura: Lungs are clear considering reduced inspiratory volume and large body habitus. No pleural effusions or pneumothorax. Mediastinum: Mediastinal contours appear normal. Heart size is normal. Bones and chest wall: No suspicious bony lesions. Overlying soft tissues appear unremarkable. IMPRESSION: Reduced inspiratory volume, large body habitus. Heart size is within normal limits. A slight degree of pulmonary edema conceivably could be superimposed. No pneumonia found. Dictated by: Riki Navarro M.D. on 07/11/2019 at 13:14 Approved by: Riki Navarro M.D. on 07/11/2019 at 13:14
[2019-07-11 11:24] LABS: Add Manual Diff / Slide Review NO; Basophils Absolute Auto 0 /uL (0-100); Basophils Percent Auto 0.1 % (0-2); Eosinophils Absolute Auto 0 /uL (0-450); Eosinophils Percent Auto 0.1 % (2-4); Hematocrit 35.8 % (41-53); Hemoglobin 11.6 g/dL (13.5-17.5); Lymphocytes Absolute Auto 400 /uL (1100-4500); Lymphocytes Percent Auto 1.9 % (25-40); Mean Corpuscular HGB Conc 32.4 % (30-36); Mean Corpuscular Hemoglobin 29.6 PG (26-34); Mean Corpuscular Volume 91.4 fL (80-100); Monocytes Absolute Auto 1000 /uL (0-900); Monocytes Percent Auto 5.1 % (3-14); Neutrophils Absolute Auto 17500 /uL (1500-7000); Neutrophils Percent Auto 92.8 % (50-75); Platelet Count 154 X10^3/uL (150-400); Red Blood Cell Count 3.92 X10^6/uL (4.5-5.9); Red Cell Distribution Width 14.5 % (11.6-14.8); White Blood Cell Count 18.8 X10^3/uL (4.5-11.0)
[2019-07-11 11:25] LABS: INR 2.4 (0.9-1.3); Prothrombin Time 27.4 SECONDS (10.1-12.7)
[2019-07-11 11:30] LABS: Albumin 3.3 g/dL (3.5-5.0); Alkaline Phosphatase 252 U/L (38-126); Aspartate Aminotransferase 474 IU/L (17-59); BUN Creatinine Ratio 18.2 (6-22); Bilirubin Total 2.9 mg/dL (0.2-1.3); Blood Urea Nitrogen 34 mg/dL (9-20); Calcium 8.5 mg/dL (8.4-10.2); Carbon Dioxide 22 mmol/L (22-32); Chloride 104 mmol/L (98-107); Estimated Glomerular Filt Rate 34.7 mL/min (>60); Globulin 3.2 g/dL (1.7-4.1); HEMOLYSIS < 15 (0-50); Potassium 3.9 mmol/L (3.4-5.1); Sodium 136 mmol/L (137-145); Total Protein 6.5 g/dL (6.3-8.2)
[2019-07-11 11:32] LABS: Ketones (Beta-Hydroxybutyrate) 0.37 mmol/L (<0.27)
[2019-07-11 11:33] LABS: Glucose 594 mg/dL (80-110)
[2019-07-11 11:35] LABS: Lactate (Lactic Acid) 5.6 mmol/L (0.7-2.1)
[2019-07-11 11:38] LABS: Alanine Aminotransferase 265 IU/L (<50)
--- NOTE | 2019-07-11 11:40 | PC.NURSE ---
1135 hrs: Lab reports critical value Lactate 5.6. Dr Koehler informed 1135 hrs. RBAV.
[2019-07-11 11:44] LABS: Procalcitonin 34.19 ng/mL (<0.5); Troponin I < 0.012 ng/mL (0.01-0.034)
[2019-07-11 11:50] LABS: Lipase 9330 U/L (23-300)
--- NOTE | 2019-07-11 12:03 | DI.CT.S_ITS ---
PROCEDURE: CT ABDOMEN PELVIS WO CON INDICATIONS: Uncertain source of Sepsis, elevated transaminases TECHNIQUE: After the administration of oral contrast, 5 mm thick sections acquired from the diaphragms to the symphysis. 5 mm coronal and sagittal reformats were performed. For radiation dose reduction, the following was used: automated exposure control, adjustment of mA and/or kV according to patient size. COMPARISON: [facility], CT, CT ABDOMEN PELVIS W CON, 11/17/2018, 11:33. FINDINGS: Image quality: Excellent. ABDOMEN: Lung bases: Lung bases are clear. Heart size is normal. Solid organs: Liver is normal in size. Hepatic cyst is unchanged. Gallbladder has been removed. There is mild prominence of the common bile duct measuring approximately 10 mm, unchanged. Pancreas demonstrates atrophy and fatty infiltration. There is mild stranding appearance of the pancreatic head as well as adjacent bowel loop. Spleen is normal in size. No adrenal nodules. Both kidneys are atrophic without obstruction. 4 mm right midpole calcification is present, unchanged. Left renal cyst is unchanged. Peritoneum and bowel: Bowel loops demonstrate normal wall thickness and caliber. No free fluid or air. Colonic diverticula present without associated inflammatory change. Nodes and vessels: No retroperitoneal or mesenteric adenopathy by size criteria. Aorta and inferior vena cava are normal in size. Miscellaneous: No ventral hernias. PELVIS: Genitourinary: Bladder wall thickness is normal. Miscellaneous: Fat-containing inguinal hernias are present. Bones: No suspicious bony lesions. No vertebral body compression fractures. Multilevel bridging anterior osteophytes are present within the visualized thoracolumbar spine suggestive of diffuse idiopathic skeletal hyperostosis IMPRESSION: 1. Mild fat stranding surrounding the pancreatic head as well as the adjacent small bowel. Overall appearance is suggestive of pancreatitis with secondary duodenal inflammation. While duodenalitis could be the primary source with secondary pancreatic inflammation, recommend clinical correlation to patient's symptoms. 2. Diverticulosis. Dictated by: Paola Mcdowell M.D. on 07/11/2019 at 13:18 Approved by: Paola Mcdowell M.D. on 07/11/2019 at 13:40
[2019-07-11] MEDS: metroNIDAZOLE 500 MG/100 ML PIGGYBACK 100 MG IV (12:13)
[2019-07-11] MEDS: CEFTRIAXONE 2 GM/50 ML FROZ.PIGGY IV (12:13)
[2019-07-11] MEDS: INSULIN DRIP PREMIX 100 UNIT/100 ML PLAST..BAG 6 UNIT IV (12:15)
[2019-07-11] MEDS: SODIUM CHLORIDE 0.9% 1,000 ML 125 ML IV ×2 (12:16→21:57)
[2019-07-11 13:01] LABS: Lactate Dehydrogenase 1110 U/L (313-618)
[2019-07-11 13:11] LABS: NT-proBNP (BNP-Adult 18+) 5360 pg/mL (<450)
[2019-07-11] MEDS: LIDOCAINE 2% (UROJET) 5 ML GEL TOP (13:15)
[2019-07-11 13:18] LABS: Reflexed Lactate in 2 Hours Y
[2019-07-11 13:27] LABS: Bacteria Urine None Seen; RBC Urine None Seen (0-5/HPF); WBC Urine None Seen (0-5/HPF)
[2019-07-11 13:32] LABS: Appearance Urine UA CLEAR; Bilirubin Urine UA NEGATIVE (NEGATIVE); Color Urine UA YELLOW; Glucose Urine UA NEGATIVE (Negative); Ketones Urine UA NEGATIVE (NEGATIVE); Leukocyte Esterase Urine UA NEGATIVE (NEGATIVE); Nitrite Urine UA NEGATIVE (Negative); Occult Blood Urine UA NEGATIVE (Negative); Protein Urine UA NEGATIVE (Negative); Specific Gravity Urine UA <=1.005 (1.000-1.035); Urobilinogen Urine UA 0.2 E.U./dL (0.2)
[2019-07-11] MEDS: SODIUM CHLORIDE 0.9% 1,000 ML 1000 ML IV (13:35)
[2019-07-11 13:44] LABS: Culture Indicated Urine Cult Not Indicated; Urine Comments Microscopic Normal
[2019-07-11 14:00] LABS: Lactate 2HR (Lactic Acid Rflx) 2.9 mmol/L (0.7-2.1)
--- NOTE | 2019-07-11 15:21 | PC.ADMIT ---
Admission Note: Patient arrived from ER via stretcher to room 231 at 1420. Pt able to move self from stretcher to bed laterally. Alert and oriented x3. SpO2 99% RA, HR in the 80s and in afib. Insulin gtt infusing at 6 units/hr - started at 1215 per emar. CBG at bedside reported CBG > 500 and order for stat glucose lab draw placed. Pt denies pain, denies nausea. Garcia catheter in place and draining clear yellow urine. Bed alarm on. Call light within reach, oriented to room and to call light/bed/tv controls. No belongings up to room with patient. The patient,Marty Heard,83 y/o, was given written information regarding hospital policies, unit procedures and contact persons. Patient's smoking status: Never smoker. Vital Signs - 8 hr 07/11/19 10:45 07/11/19 11:15 07/11/19 11:30 Temperature 97.3 F L Pulse Rate 109 H 102 H 97 H Respiratory Rate 24 14 15 Blood Pressure 130/71 Blood Pressure [Right Arm] 108/62 106/58 L Pulse Oximetry 99 07/11/19 11:45 07/11/19 12:00 07/11/19 12:30 Temperature Pulse Rate 92 H 90 90 Respiratory Rate 17 28 H 16 Blood Pressure Blood Pressure [Right Arm] 122/58 L 112/67 99/58 L Pulse Oximetry 92 98 92 07/11/19 13:15 07/11/19 13:30 07/11/19 14:47 Temperature 99.1 F Pulse Rate 89 96 H 85 Respiratory Rate 20 16 20 Blood Pressure 126/57 L Blood Pressure [Right Arm] 103/58 L 94/65 Pulse Oximetry 96 96 99
[2019-07-11 15:30] LABS: Glucose 543 mg/dL (80-110)
--- NOTE | 2019-07-11 16:19 | P.HP_ITS ---
History of Present Illness History of Present Illness Date Patient Seen: 07/11/19 Time Patient Seen: 16:19 Chief complaint: weakness/sob/hyperglycemia Narrative: Marty Heard is an 83-year-old male with past medical history of type 2 diabetes, hypothyroidism, atrial fibrillation on Coumadin, hypertension, CKD III, and chronic low back pain who was brought in by EMS reporting that he had been in bed with increasing weakness for the past week. Patient states that he is here for high blood sugar, and when he checked it at home over 500 so he was brought into the emergency room. He does endorse progressive fatigue, but states he lives at home and is able to do most of his daily activities. He is limited somewhat by his low back pain for which she has received multiple injections for, and he does use a walker when going out of the house. He states he did have an episode of epigastric abdominal pain last night, that usually goes away with acid relief pills, but did not, and actually will come up in the morning. He actually threw up yesterday, but was unable to recall character of his emesis. He is slightly nauseous today, but denies any fevers, chills, cough, shortness of breath, chest pain. He denies any abdominal pain, lower extremity edema, worsened back pain, neck pain, leg pain, swelling, erythema. In the emergency room, patient had low normal blood pressures but was otherwise unremarkable. He was complaining of back pain. Initial laboratory evaluation showed a leukocytosis 18.8, with 93% neutrophils, hemoglobin of 11.6, platelet of 154. Chemistries were remarkable for creatinine of 1.87 (baseline appears 1.4-1.5), and a glucose of 594. Liver enzymes were also elevated with an AST of 474, ALT of 265, alk phos of 252. Total bilirubin was elevated at 2.9. LDH was 1110, and his INR was 2.4. Lipase was 9330. Procalcitonin was 34.19. VBG showed a pCO2 of 37, bicarb of 20, and a pH of 7.33. ProBNP was 5360. UA was negative. Chest x-ray showed poor inspiratory volumes but did not show any focal infiltrates and does not appear to show volume overload. CT abdomen pelvis showed fat stranding around the pancreatic head, as well as the duodenum, most consistent with pancreatitis as well as clear lung bases. COVID-19 testing was sent by the emergency room. Patient History Medical History Cancer of left ear (Acute) Chronic atrial fibrillation with RVR (Acute) Diabetes (Chronic) E coli infection (Acute) Hernia of abdominal cavity (Acute) Hypothyroidism (Acute) Inguinal hernia bilateral, non-recurrent (Acute) Melanoma (Acute) Prostate cancer (Acute) Family & Social History Social History: household members family Prior Living Arrangements House Safety & Behavioral: Feels Safe in Current Yes Environment Been Physically Hurt or No Threatened By a Person Suicidal Ideation Description None Suicide Plan Description No Plan Tobacco & Substance use: Smoking Status Never smoker alcohol intake never alcohol intake frequency 0-2 drinks per day Substance Use Type does not use Meds Home Medications and Allergies Home Medications Medication Instructions Recorded Confirmed Type tramadol 100 mg PO TID PRN #0 02/03/16 07/11/19 History levothyroxine 50 mcg PO MOTUWETHFRSA 09/16/17 07/11/19 History furosemide [Lasix] 80 mg PO DAILY 07/20/18 07/11/19 History insulin NPH and regular human 30 units SUBCUT QPM 07/20/18 07/11/19 History [Novolin 70-30 FlexPen U-100] metoprolol succinate 100 mg PO DAILY 07/20/18 07/11/19 History warfarin [Coumadin] 5 mg PO MOWEFR 07/20/18 07/11/19 History ferrous sulfate [Iron (ferrous 325 mg PO DAILY 07/11/19 07/11/19 History sulfate)] Allergies Allergy/AdvReac Type Severity Reaction Status Date / Time Penicillins Allergy Unknown Verified 07/11/19 11:03 Review of Systems Review of Systems Narrative: All other systems reviewed with the patient and are negative unless otherwise stated. Exam Vital Signs (past 8 hours): - 07/11/19 10:45 07/11/19 11:15 07/11/19 11:30 Temperature 97.3 F L Pulse Rate 109 H 102 H 97 H Respiratory Rate 24 14 15 Blood Pressure 130/71 Blood Pressure [Right Arm] 108/62 106/58 L Pulse Oximetry 99 07/11/19 11:45 07/11/19 12:00 07/11/19 12:30 Temperature Pulse Rate 92 H 90 90 Respiratory Rate 17 28 H 16 Blood Pressure Blood Pressure [Right Arm] 122/58 L 112/67 99/58 L Pulse Oximetry 92 98 92 07/11/19 13:15 07/11/19 13:30 07/11/19 14:47 Temperature 99.1 F Pulse Rate 89 96 H 85 Respiratory Rate 20 16 20 Blood Pressure 126/57 L Blood Pressure [Right Arm] 103/58 L 94/65 Pulse Oximetry 96 96 99 Oxygen Delivery Method Room Air Oxygen Flow Rate 0 Narrative Exam Narrative: GENERAL APPEARANCE: Obese male, slow speaking, in no acute distress SKIN: Inspection of the skin reveals no rashes, ulcerations or petechiae. HEENT: Normocephalic atraumatic, extraocular muscles are intact, oropharynx is clear and mucous membranes are dry, neck is supple without adenopathy NECK: Supple and symmetric. There was no thyroid enlargement, and no tenderness, or masses were felt. CHEST: Obese, nontender to palpation. LUNGS: Poor effort, but grossly clear to auscultation bilaterally. CARDIOVASCULAR: Irregularly irregular rhythm with normal rate and no murmurs rubs or gallops. ABDOMEN: Soft and nontender. Obese MUSCULOSKELETAL: There was no tenderness or effusions noted. Muscle strength and tone were normal. EXTREMITIES: Slightly bluish tinge to his right foot, but warm and with pedal pulses, appears slightly chronic. There is trace to 1+ pitting edema in his bilateral lower extremities. NEUROLOGIC: Alert and oriented x 3. Pleasant and cooperative. Objective ECG Impression: Atrial fibrillation, rate 103, with right bundle branch morphology. No significant morphology changes Imaging Chest x-ray: My impression: Poor inspiratory effort, no focal infiltrates. CT scan - abdomen: Radiologist's impression: 1. Mild fat stranding surrounding the pancreatic head as well as the adjacent small bowel. Overall appearance is suggestive of pancreatitis with secondary duodenal inflammation. While duodenalitis could be the primary source with secondary pancreatic inflammation, recommend clinical correlation to patient's symptoms. 2. Diverticulosis. Labs Result Diagrams: 07/11/19 10:50 07/11/19 14:40 Labs: Laboratory Results - last 24 hr 07/11/19 07/11/19 07/11/19 10:50 10:50 10:50 WBC 18.8 H RBC 3.92 L Hgb 11.6 L Hct 35.8 L MCV 91.4 MCH 29.6 MCHC 32.4 RDW 14.5 Plt Count 154 Neut % (Auto) 92.8 H Lymph % (Auto) 1.9 L Letcher % (Auto) 5.1 Eos % (Auto) 0.1 L Baso % (Auto) 0.1 Neut # (Auto) 32312 H Lymph # (Auto) 400 L Letcher # (Auto) 1000 H Eos # (Auto) 0 Baso # (Auto) 0 PT INR VBG pH 7.33 VBG pCO2 37.1 L VBG pO2 45 VBG HCO3 20 L VBG Total CO2 21 L VBG O2 Saturation 78 H VBG Base Excess -6.0 L Sodium 136 L Potassium 3.9 Chloride 104 Carbon Dioxide 22 BUN 34 H Creatinine 1.87 H Estimated GFR 34.7 L BUN/Creatinine Ratio 18.2 Glucose 594 H* Lactate Calcium 8.5 Total Bilirubin 2.9 H AST 474 H ALT 265 H Alkaline Phosphatase 252 H Lactate Dehydrogenase Troponin I NT-Pro-B Natriuret Pep Total Protein 6.5 Albumin 3.3 L Globulin 3.2 Albumin/Globulin Ratio 1.0 Lipase 9330 H Procalcitonin Urine Color Urine Appearance Urine pH Ur Specific [place] Urine Protein Urine Glucose (UA) Urine Ketones Urine Occult Blood Urine Nitrate Urine Bilirubin Urine Urobilinogen Ur Leukocyte Esterase Urine RBC Urine WBC Urine Bacteria Ur Culture Indicated? Micro UA Comment Ketones 0.37 H 07/11/19 07/11/19 07/11/19 10:50 10:50 10:50 WBC RBC Hgb Hct MCV MCH MCHC RDW Plt Count Neut % (Auto) Lymph % (Auto) Letcher % (Auto) Eos % (Auto) Baso % (Auto) Neut # (Auto) Lymph # (Auto) Letcher # (Auto) Eos # (Auto) Baso # (Auto) PT 27.4 H INR 2.4 H VBG pH VBG pCO2 VBG pO2 VBG HCO3 VBG Total CO2 VBG O2 Saturation VBG Base Excess Sodium Potassium Chloride Carbon Dioxide BUN Creatinine Estimated GFR BUN/Creatinine Ratio Glucose Lactate 5.6 H* Calcium Total Bilirubin AST ALT Alkaline Phosphatase Lactate Dehydrogenase Troponin I < 0.012 NT-Pro-B Natriuret Pep Total Protein Albumin Globulin Albumin/Globulin Ratio Lipase Procalcitonin Urine Color Urine Appearance Urine pH Ur Specific [place] Urine Protein Urine Glucose (UA) Urine Ketones Urine Occult Blood Urine Nitrate Urine Bilirubin Urine Urobilinogen Ur Leukocyte Esterase Urine RBC Urine WBC Urine Bacteria Ur Culture Indicated? Micro UA Comment Ketones 07/11/19 07/11/19 07/11/19 10:50 10:50 10:50 WBC RBC Hgb Hct MCV MCH MCHC RDW Plt Count Neut % (Auto) Lymph % (Auto) [place] % (Auto) Eos % (Auto) Baso % (Auto) Neut # (Auto) Lymph # (Auto) Letcher # (Auto) Eos # (Auto) Baso # (Auto) PT INR VBG pH VBG pCO2 VBG pO2 VBG HCO3 VBG Total CO2 VBG O2 Saturation VBG Base Excess Sodium Potassium Chloride Carbon Dioxide BUN Creatinine Estimated GFR BUN/Creatinine Ratio Glucose Lactate Calcium Total Bilirubin AST ALT Alkaline Phosphatase Lactate Dehydrogenase 1110 H Troponin I NT-Pro-B Natriuret Pep 5360 H Total Protein Albumin Globulin Albumin/Globulin Ratio Lipase Procalcitonin 34.19 H Urine Color Urine Appearance Urine pH Ur Specific [place] Urine Protein Urine Glucose (UA) Urine Ketones Urine Occult Blood Urine Nitrate Urine Bilirubin Urine Urobilinogen Ur Leukocyte Esterase Urine RBC Urine WBC Urine Bacteria Ur Culture Indicated? Micro UA Comment Ketones 07/11/19 07/11/19 07/11/19 13:18 13:18 14:40 WBC RBC Hgb Hct MCV MCH MCHC RDW Plt Count Neut % (Auto) Lymph % (Auto) [place] % (Auto) Eos % (Auto) Baso % (Auto) Neut # (Auto) Lymph # (Auto) [place]cher # (Auto) Eos # (Auto) Baso # (Auto) PT INR VBG pH VBG pCO2 VBG pO2 VBG HCO3 VBG Total CO2 VBG O2 Saturation VBG Base Excess Sodium Potassium Chloride Carbon Dioxide BUN Creatinine Estimated GFR BUN/Creatinine Ratio Glucose 543 H* Lactate 2.9 H Calcium Total Bilirubin AST ALT Alkaline Phosphatase Lactate Dehydrogenase Troponin I NT-Pro-B Natriuret Pep Total Protein Albumin Globulin Albumin/Globulin Ratio Lipase Procalcitonin Urine Color Yellow Urine Appearance Clear Urine pH 6.0 Ur Specific [place] <=1.005 Urine Protein Negative Urine Glucose (UA) Negative Urine Ketones Negative Urine Occult Blood Negative Urine Nitrate Negative Urine Bilirubin Negative Urine Urobilinogen 0.2 Ur Leukocyte Esterase Negative Urine RBC None seen Urine WBC None seen Urine Bacteria None seen Ur Culture Indicated? Cult not indicated Micro UA Comment Microscopic normal Ketones Assessment & Plan Assessment & Plan narrative: Marty Heard is an 83-year-old male with past medical history of type 2 diabetes, hypothyroidism, atrial fibrillation on Coumadin, hypertension, CKD III, and chronic low back pain who was brought in by EMS reporting that he had been in bed with increasing weakness for the past week. He was found to have a severely elevated blood glucose, and appears dehydrated on exam. His CT shows evidence of pancreatitis as does his elevated lipase, however the patient does not complain of abdominal pain although he does endorse some epigastric pain with nausea and vomiting last night. He is admitted to Medicine for likely pancreatitis and hyperglycemic hyperosmolar syndrome. 1. Acute pancreatitis, present on admission -CT abdomen on admission showing fat stranding around the pancreatic head and surrounding duodenal inflammation as well most consistent with pancreatitis. His lipase is elevated at 9330 and he did have complaints of abdominal pain and nausea last night, although none currently though he has not eaten since this mo rning. -will start clear liquids now given lack of abdominal pain -will obtain right upper quadrant ultrasound, he was started on insulin drip in the emergency room for elevated glucose level initially over concern for possible DKA, however there was no anion gap, but will continue at this time pending triglyceride level. -patient has a gallbladder resection, which was done apparently in July of last year, when he was transferred to [facility]. Will try and obtain records from that admission. -given localized inflammation surrounding the pancreatic head, consider MRCP, consider GI consultation depending on his lab trend. -will continue IV fluids for now given dehydrated appearance on exam. Will be cautious given elevated BNP and history of AFib with concern for heart failure as well. -infectious etiology is also possible with elevated white blood cell count, however this may be reactive in the setting of HHS and dehydration. Will continue to follow WBC count. The patient does not currently have fever. -continue morphine for pain control 2. Type 2 diabetes mellitus, with HHS, present on admission -patient presented with a glucose level near 600, and appears clinically d ehydrated. Ketones are only minimally elevated but there is no anion gap, and no acidosis. This is most consistent with HHS. -will continue insulin drip as noted above for now -if triglycerides are less than 500 insulin infusion can be discontinued and patient can be started on Lantus this evening. Plan to transition to 20 units of Lantus b.i.d., with high-dose sliding scale, and 5 units at mealtime. Continue to adjust as necessary. Patient's home regimen consist of 35 units in the morning, and 30 units in the evening of 70/30 mix. -check A1c -continue fluids as noted above 3. Atrial fibrillation on chronic anticoagulation, unable to specify type -will continue rate control with a decreased dose of home metoprolol, at 25 mg b.i.d.( home takes 100 mg BID) -will repeat TTE as volume status is currently unclear 4. Acute on chronic kidney disease, chronic stage III, present on admission -continue IV fluids noted above, acute portion likely secondary to relative dehydration from HHS or possibly low-flow state as noted below. -patient further takes Toradol 3 times daily, will hold in the setting of acute kidney injury -avoid nephrotoxic medications 5. Sepsis rule out -elevated white blood cell count on admission, without fever but evidence of organ dysfunction including acute renal failure, elevated lactate, and liver dysfunction. -will continue meropenem at this time as no obvious source is readily apparent. Most likely infectious etiology remains biliary, however the patient is status post cholecystectomy -procalcitonin on admission is 34.19, also suggestive of a bacterial infection -COVID-19 testing was sent by the emergency room 6. Chronic low back pain, -continue morphine, hold Toradol given RAFFAELE 7. Elevated liver enzymes -patient presented with an elevated bilirubin of 2.9, AST 474, ALT 265, and alk- phos 252. His INR was elevated at 2.4 but he is on Coumadin. -differential includes biliary source of acute pancreatitis, hepatic congestion from possible new onset heart failure given elevated BNP, low-flow state from dehydration/HHS or ischemia. -continue to follow liver enzymes and hepatic function. Code: DNR as specified by patient's POLST form. Surrogate decision maker is listed as his son. DVT: On Coumadin, INR therapeutic Dispo: Patient is admitted under inpatient status as his stay is likely to exceed 2 midnights. Will order PT and OT consultation. Given current state, likely discharge to long term. COVID-19 COVID-19 status: Result pending Quality VTE Deep Vein Thrombosis/Pulmonary Embolism Present on Admission: No
--- NOTE | 2019-07-11 16:26 | DI.US.S_ITS ---
PROCEDURE: US ABDOMEN LIMITED INDICATIONS: ELEV BILI, LEUKOCYTOSIS, PANCREATITIS TECHNIQUE: Real-time scanning was performed of the abdominal and retroperitoneal organs, with image documentation. COMPARISON: [facility], US, US ABDOMEN LIMITED, 07/20/2018, 12:07. [facility], CT, CT ABDOMEN PELVIS WO CON, 07/11/2019, 12:03. FINDINGS: Liver: Liver is enlarged measuring 16.3 cm. Secondary to patient body habitus, it is not well visualized. Gallbladder: Gallbladder been removed. No mary-cholecystic fluid. Biliary ducts: Intrahepatic bile ducts are non-dilated. Extrahepatic bile duct caliber measures 8.8 mm. Normal is 6-7 mm or less in diameter, or 10 mm or less post-cholecystectomy. Pancreas: Not well-seen. IMPRESSION: 1. Limited exam secondary to patient body habitus. 2. Pancreas is not well-visualized. Dictated by: Paola Mcdowell M.D. on 07/11/2019 at 17:36 Approved by: Paola Mcdowell M.D. on 07/11/2019 at 17:37
--- NOTE | 2019-07-11 17:22 | DI.ECHO.S_ITS ---
[facility]---------+ [facility] +---------+ : : [address] : : : : [id number] : : : : Phone: [phone]+ Echocardiogram Report + + :Name: MADDISON ANTONIO Study Date: 07/12/2019 Height: 72 in : :Hospital Weight: 268 lb : : Gender: Male BSA: 2.4 m2 : :: 1935 Age: 83 yrs BP: 130/65 mmHg: :Reason For Study: shortness of breath : :Ordering Physician: Piotr : :Hospitalist Performed By: Rosalia Fuentes : :Referring: BEHZAD CARTER : + + Interpretation Summary Left ventricular wall thickness is mildly increased. The ejection fraction is estimated to be 60-65%. There is mild tricuspid regurgitation. The right ventricular systolic pressure is estimated to be at least 36 mmHg based on an estimated right atrial pressure of 8 mm Hg. Procedure: A two-dimensional transthoracic echocardiogram with color flow and Doppler was performed. The study quality was technically adequate. Comparison is made with the echocardiogram of 11/10/16. Definity contrast used after patient education and consent. Patient stated injection site burning after initial use of Definity which resolved in about two minutes. A contrast injection of Definity was performed to improve assessment of LV function. Contrast was injected into an intravenous site in the left arm. The patient was in atrial fibrillation with heart rates between 78-111 bpm during the exam. Left Ventricle: The left ventricular cavity is small. Left ventricular wall thickness is mildly increased. The ejection fraction is estimated to be 60- 65%. Left ventricular wall motion is normal. Diastolic function could not be accurately assessed due to atrial fibrillation. Right Ventricle: The right ventricle is not well visualized. The right ventricular systolic function is normal. Atria: The left atrium is mildly dilated. Right atrial size is normal. There is no Doppler evidence for an interatrial shunt. Mitral Valve: The mitral valve leaflets appear mildly thickened, but open well. There is trace mitral regurgitation. Aortic Valve: The aortic valve is trileaflet. The aortic valve opens well. There is no aortic valve stenosis. No aortic regurgitation is present. Tricuspid Valve: The tricuspid valve is normal in structure and function. There is mild tricuspid regurgitation. The right ventricular systolic pressure is estimated to be at least 36 mmHg based on an estimated right atrial pressure of 8 mm Hg. Pulmonic Valve: The pulmonic valve is normal in structure and function. There is no pulmonic valvular regurgitation. Great Vessels: The aortic root is normal size. The ascending aorta is mildly enlarged. The IVC is of normal diameter and collapses less than 50% with a sniff. This suggests a right atrial pressure of 8 mm Hg. Pericardium/ Pleura There is no pericardial effusion. There is no pleural effusion. MMode/2D Measurements & Calculations LVIDd: 3.6 cm LVOT diam: 2.5 cm LVIDs: 2.6 cm Ao root diam: 3.5 cm FS: 28.1 % asc Aorta Diam: 3.6 cm EPSS: 0.82 cm Ao Arch Diam (Prox Trans): 3.2 cm IVSd: 1.1 cm LVPWd: 1.2 cm LV sainz. diameter/BSA (cm/m^2): 1.5 LV sys. diameter/BSA (cm/m^2): 1.1 LA A2 area: 30.5 cm2 RA long axis: 5.7 cm LA A4 area: 26.1 cm2 RA area: 20.6 cm2 LA length (vol): 7.1 cm RA vol: 63.6 ml LA vol: 94.6 ml RA : 26.4 ml/m2 LA vol index: 39.2 ml/m2 TAPSE: 1.8 cm Doppler Measurements & Calculations Ao V2 max: 140.4 cm/sec LVOT Max Walter: 79.1 cm/sec Ao V2 mean: 101.8 cm/sec LV V1 max P.5 mmHg Ao max P.9 mmHg LV V1 VTI: 14.2 cm Ao mean P.6 mmHg KM(I,D): 2.7 cm2 Ao V2 VTI: 26.5 cm KM(V,D): 2.9 cm2 sev ratio: 0.54 KM indexed to BSA (cm^2/m^2): 1.1 MV E max walter: 106.6 cm/sec TR max walter: 266.3 cm/sec MV A max walter: 3.1 cm/sec TR max P.4 mmHg MV E/A: 34.2 PA V2 max: 62.5 cm/sec Med Peak E' Walter: 9.8 cm/sec PA V2 mean: 42.3 cm/sec E/E' med: 10.9 PA mean P.82 mmHg Lat Peak E' Walter: 8.0 cm/sec E/E' lat: 13.4 E/e' average: 12.1 MV dec time: 0.26 sec SV(LVOT): 71.9 ml Reading Physician:11:20 AM
[2019-07-11 18:19] LABS: Triglycerides 96 mg/dL (35-150)
[2019-07-11 18:20] LABS: Albumin 3.4 g/dL (3.5-5.0); Albumin Globulin Ratio 1.1 (1.0-2.8); Alkaline Phosphatase 233 U/L (38-126); Aspartate Aminotransferase 392 IU/L (17-59); BUN Creatinine Ratio 17.7 (6-22); Bilirubin Total 1.4 mg/dL (0.2-1.3); Blood Urea Nitrogen 33 mg/dL (9-20); Calcium 8.7 mg/dL (8.4-10.2); Carbon Dioxide 28 mmol/L (22-32); Chloride 107 mmol/L (98-107); Estimated Glomerular Filt Rate 34.9 mL/min (>60); Globulin 3.2 g/dL (1.7-4.1); Glucose 417 mg/dL (80-110); HEMOLYSIS < 15 (0-50); Potassium 3.7 mmol/L (3.4-5.1); Sodium 141 mmol/L (137-145); Total Protein 6.6 g/dL (6.3-8.2)
[2019-07-11 18:26] LABS: Alanine Aminotransferase 243 IU/L (<50)
[2019-07-11] MEDS: MEROPENEM 1 GM/50 ML PIGGYBACK IV (18:28)
[2019-07-11 18:31] LABS: Troponin I < 0.012 ng/mL (0.01-0.034)
--- NOTE | 2019-07-11 20:14 | DI.MRI.S_ITS ---
PROCEDURE: MR ABDOMEN WO CON INDICATIONS: abdominal pain TECHNIQUE: Coronal HASTE through the abdomen, axial 2-D FLASH in- and [id number], and breath-hold T2 FSE with fat saturation through the biliary system and pancreas. Oblique coronal and axial thin-slice HASTE, radial thick-slab HASTE centered on the extrahepatic bile ducts. Intravenous secretin: Not requested. COMPARISON: [facility], CT, CT ABDOMEN PELVIS WO CON, 07/11/2019, 12:03. [facility], EC, EC ECHO DOPPLER COMPLETE, 07/12/2019, 8:16. [facility], US, US ABDOMEN LIMITED, 07/11/2019, 16:56. FINDINGS: Image quality: Excellent. Pancreas and biliary system: Intra- and extra-hepatic biliary ducts are non dilated. Pancreas is normal in morphology, but adjacent to the pancreatic head there is mild soft tissue edema which appears centered on a gas-filled structure at the medial border of the descending duodenum, immediately below the level of the duodenal bulb. Pancreatic duct is normal in caliber, without developmental anomalies. Gallbladder has been previously resected.. Other solid organs: Liver is normal in size. Spleen is normal in size. No adrenal nodules. Both kidneys are normal in size, without hydronephrosis. Nodes and vessels: No retroperitoneal or mesenteric adenopathy by size criteria. Aorta and inferior vena cava are normal in size. Bowel and peritoneum: Unenhanced bowel loops are normal in caliber. No free fluid. Lung bases: No basal pleural effusions. Heart size is normal. Bones and soft tissues: No ventral hernias. Bone marrow is of normal overall signal. IMPRESSION: There is an inflammatory process centered on a gas-filled structure at the medial border of the descending duodenum immediately below the duodenal bulb. CT scanning 07/11/19 shows gas within that structure, which appears extraluminal. This may reflect a manifestation of medial peptic ulcer, but also can be seen in the setting of an inflamed duodenal diverticulum. No sign of distal common duct stone. Prior cholecystectomy. Through the remainder of the visualized chest abdomen and pelvis no abnormality is seen. Dictated by: Riki Navarro M.D. on 07/12/2019 at 11:31 Approved by: Riki Navarro M.D. on 07/12/2019 at 11:41
[2019-07-11 21:29] LABS: COVID19 Sendout Not Detected (Not Detect)
[2019-07-11] MEDS: DOCUSATE 100 MG CAPSULE PO (21:42)
[2019-07-11] MEDS: METOPROLOL ER 25 MG TABLET PO (21:42)
[2019-07-11] MEDS: INSULIN ASPART 100 UNIT/ML INSULN PEN SUBCUT (21:43)
[2019-07-11] MEDS: INSULIN GLARGINE 100 UNIT/ML 3ML PEN 20 UNIT SUBCUT (21:43)
[2019-07-12] VITALS (8 sets, daily range): BP systolic 106–136; BP diastolic 60–90; PULSE 82–99; RESP 18–20; TEMP 36.4–37.1; O2SAT 95–99
--- NOTE | 2019-07-12 02:41 | PC.NURSE ---
Addendum entered by Robert Soto R.N. 07/12/19 06:26: 0430: Assisted to turn and reposition. 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 Vital signs stable. IVs in rt wrist and lt hand in place, saline locked. Pt denies pain at this time. Alert, oriented X3. 0230: CBG checked, 203.
[2019-07-12 04:58] LABS: Add Manual Diff / Slide Review NO; Basophils Absolute Auto 0 /uL (0-100); Basophils Percent Auto 0.3 % (0-2); Eosinophils Absolute Auto 100 /uL (0-450); Eosinophils Percent Auto 0.7 % (2-4); Lymphocytes Absolute Auto 1400 /uL (1100-4500); Lymphocytes Percent Auto 9.9 % (25-40); Mean Corpuscular HGB Conc 33.3 % (30-36); Mean Corpuscular Hemoglobin 29.9 PG (26-34); Mean Corpuscular Volume 89.7 fL (80-100); Monocytes Absolute Auto 1100 /uL (0-900); Monocytes Percent Auto 8.3 % (3-14); Neutrophils Absolute Auto 11100 /uL (1500-7000); Neutrophils Percent Auto 80.8 % (50-75); Platelet Count 149 X10^3/uL (150-400); Red Blood Cell Count 3.68 X10^6/uL (4.5-5.9); Red Cell Distribution Width 14.5 % (11.6-14.8); White Blood Cell Count 13.7 X10^3/uL (4.5-11.0)
[2019-07-12 05:19] LABS: Procalcitonin 72.95 ng/mL (<0.5)
[2019-07-12 05:21] LABS: Enterococcus species Not Detected (Not Detect); Listeria monocytogenes Not Detected (Not Detect); Staphylococcus species Not Detected (Not Detect)
[2019-07-12 05:22] LABS: Acinetobacter baumannii Not Detected (Not Detect); E. coli Detected (Not Detect); Enterobacteriaceae species Detected (Not Detect); KPC (carbapenem-resist gene) Not Detected (Not Detect); Streptococcus agalactiae (Gr B Not Detected (Not Detect); Streptococcus pneumonia Not Detected (Not Detect); Streptococcus pyogenes (Gr A) Not Detected (Not Detect); Streptococcus species Not Detected (Not Detect)
[2019-07-12 05:23] LABS: Candida albicans Not Detected (Not Detect); Candida glabrata Not Detected (Not Detect); Candida krusei Not Detected (Not Detect); Candida parapsilosis Not Detected (Not Detect); Candida tropicalis Not Detected (Not Detect); Enterobacter cloacae complex Not Detected (Not Detect); Haemophilus influenzae Not Detected (Not Detect); Neisseria meningitidis Not Detected (Not Detect); Proteus species Not Detected (Not Detect); Pseudomonas aeruginosa Not Detected (Not Detect); Serratia marcescens Not Detected (Not Detect)
[2019-07-12 06:03] LABS: Alanine Aminotransferase 228 IU/L (<50); Albumin 3.2 g/dL (3.5-5.0); Alkaline Phosphatase 212 U/L (38-126); Aspartate Aminotransferase 265 IU/L (17-59); Bilirubin Total 0.9 mg/dL (0.2-1.3); Bilirubin Unconjugated 0.5 mg/dL (0.0-1.1); Cholesterol 125 mg/dL (140-199); Globulin 3.1 g/dL (1.7-4.1); HDL Cholesterol 24 mg/dL (40-60); HEMOLYSIS < 15 (0-50); LDL Cholesterol Calculated 84 mg/dL (<100); Total Protein 6.3 g/dL (6.3-8.2); Triglycerides 83 mg/dL (35-150)
[2019-07-12] MEDS: LEVOTHYROXINE 50 MCG TABLET PO (06:15)
[2019-07-12] MEDS: MEROPENEM 1 GM/50 ML PIGGYBACK IV ×3 (06:15→23:53)
[2019-07-12 06:45] LABS: Hemoglobin A1C% w Est Avg Glu 9.9 % (4.0-6.0)
[2019-07-12 07:46] LABS: BUN Creatinine Ratio 18.5 (6-22); Blood Urea Nitrogen 33 mg/dL (9-20); Calcium 8.6 mg/dL (8.4-10.2); Carbon Dioxide 28 mmol/L (22-32); Chloride 110 mmol/L (98-107); Estimated Glomerular Filt Rate 36.7 mL/min (>60); Glucose 212 mg/dL (80-110); Sodium 142 mmol/L (137-145)
[2019-07-12 08:12] LABS: Potassium 4.3 mmol/L (3.4-5.1)
[2019-07-12 08:28] LABS: BUN Creatinine Ratio 18.5 (6-22); Blood Urea Nitrogen 33 mg/dL (9-20); Calcium 8.4 mg/dL (8.4-10.2); Carbon Dioxide 26 mmol/L (22-32); Chloride 109 mmol/L (98-107); Estimated Glomerular Filt Rate 36.7 mL/min (>60); Glucose 219 mg/dL (80-110); HEMOLYSIS < 15 (0-50); Potassium 3.9 mmol/L (3.4-5.1); Sodium 142 mmol/L (137-145)
[2019-07-12 08:29] LABS: Lactate (Lactic Acid) 1.4 mmol/L (0.7-2.1)
[2019-07-12] MEDS: INSULIN ASPART 100 UNIT/ML INSULN PEN SUBCUT ×6 (09:17→20:24)
[2019-07-12] MEDS: INSULIN GLARGINE 100 UNIT/ML 3ML PEN 20 UNIT SUBCUT (09:19)
[2019-07-12] MEDS: METOPROLOL ER 25 MG TABLET PO (09:19)
[2019-07-12] MEDS: FERROUS SULFATE 325 MG TABLET PO (09:19)
[2019-07-12] MEDS: DOCUSATE 100 MG CAPSULE PO ×2 (09:19→20:23)
[2019-07-12 09:28] LABS: Hepatitis B Surface Antigen NEGATIVE s/c (NEGATIVE)
[2019-07-12 09:41] LABS: Hep C Virus Ab w/Reflex Quant NEGATIVE s/c (NEGATIVE)
--- NOTE | 2019-07-12 15:24 | CM.DANOTE ---
DCP: Case received, EMR reviewed and met with patient. Introduced self and role. Was able to meet with patient in his room to obtain information regarding baseline activity level, health, and living situation. DCP assessment completed with information currently available. Patient is an 83 year old male who admitted yesterday afternoon to the care of the hospitalist team. PCP: Dr. Lakisha Dangelo at [facility]. Payer: confirmed: [facility]. Patient came to the hospital via ambulance secondary to increased weakness. Patient holds current diagnosis of Pancreatitis, and has history of diabetes type 2. Patient stated that his blood sugar had been in the 500s when he came in. He mentioned that he had been incontinent of urine in bed, which is not his norm, and couldn't get out of bed, so ambulance was called. Patient is alert and oriented. He resides here in [place] with his son, Jason. He also resides with his , Nancy, who he mentioned has dementia. He uses a cane at home, and stated that he stopped driving when the COVID started. He mentioned that he has been here before, and at one time, went to [facility]. P: DCP to continue to follow. Patient should be able to go home when he is medically stable. Marya Sol RN/Scheduling Agent
--- NOTE | 2019-07-12 15:32 | PC.NURSE ---
Transfer Pt transferred via chair at 1430 to room 220. All belongings with pt including glasses. Oriented to new room. Call light within reach. Report given to Mino DIOP.
--- NOTE | 2019-07-12 17:23 | PM.PN.1 ---
Subjective Subjective Date Patient Seen: 07/12/19 Interval history: Marty Heard is an 83-year-old male with past medical history of type 2 diabetes, hypothyroidism, atrial fibrillation on Coumadin, hypertension, CKD III, and chronic low back pain who was brought in by EMS reporting that he had been in bed with increasing weakness for the past week. He was found to have a severely elevated blood glucose, and appears dehydrated on exam. His CT shows evidence of pancreatitis as does his elevated lipase, however the patient does not complain of abdominal pain although he does endorse some epigastric pain with nausea and vomiting night prior to admission. He is admitted to Medicine for likely pancreatitis and hyperglycemic hyperosmolar syndrome. Blood culture from admission growing E coli. Patient states he feels better. He does not have abdominal pain at this time. He had Garcia catheter placed in the ER due to acute urinary retention. Exam Vital Signs (past 8 hours): - 07/12/19 12:00 07/12/19 15:30 Temperature 98.6 F 97.6 F Pulse Rate 95 H 91 H Respiratory Rate 20 18 Blood Pressure 106/66 118/71 Pulse Oximetry 98 99 Oxygen Delivery Method Room Air Oxygen Flow Rate 0 Narrative Exam Narrative: General: Alert pleasant obese male in no acute distress Lungs: Clear to auscultation Heart: Irregularly irregular Abdomen: Obese, soft, nontender Extremities: Chronic venous stasis edema bilateral lower legs Neurological: Affect normal, nonfocal Objective Labs Result Diagrams: 07/12/19 04:15 07/12/19 08:05 Labs: Laboratory Results - last 24 hr 07/11/19 07/11/19 07/11/19 10:50 11:27 14:50 WBC RBC Hgb Hct MCV MCH MCHC RDW Plt Count Neut % (Auto) Lymph % (Auto) [place] % (Auto) Eos % (Auto) Baso % (Auto) Neut # (Auto) Lymph # (Auto) [place] # (Auto) Eos # (Auto) Baso # (Auto) Sodium Potassium Chloride Carbon Dioxide BUN Creatinine Estimated GFR BUN/Creatinine Ratio Glucose Hemoglobin A1c Lactate Calcium Total Bilirubin Conjugated Bilirubin Unconjugated Bilirubin AST ALT Alkaline Phosphatase Troponin I Total Protein Albumin Globulin Albumin/Globulin Ratio Triglycerides 96 Cholesterol LDL Cholesterol, Calc HDL Cholesterol Procalcitonin A. baumannii (PCR) Not detected Key albicans (PCR) Not detected C. glabrata (PCR) Not detected C. krusei (PCR) Not detected C. parapsilosis (PCR) Not detected C. tropicalis (PCR) Not detected COVID-19 PCR Not detected Enterobacteriac sp PCR Detected H E. cloacae complex PCR Not detected Enterococcus sp PCR Not detected E. coli (PCR) Detected H H. influenzae (PCR) Not detected Hep Bs Antigen Hepatitis C Antibody Klebsiella oxytoca PCR Not detected Klebsiella pneumoniae Not detected List. monocytogenes PCR Not detected N. meningitidis (PCR) Not detected Proteus species (PCR) Not detected Serratia marcescens PCR Not detected Staphylococcus sp PCR Not detected Staph aureus (PCR) Not detected mecA-Methicil Res Gene Not Reportable Streptococcus sp PCR Not detected Group A Strep (PCR) Not detected Strep agalactiae (PCR) Not detected Strep pneumoniae (PCR) Not detected P. aeruginosa (PCR) Not detected Tracie/B-Vanco Res Genes Not Reportable KPC-Carbap Res Gene PCR Not detected 07/11/19 07/11/19 07/12/19 18:00 18:00 04:15 WBC 13.7 H RBC 3.68 L Hgb 11.0 L Hct 33.0 L MCV 89.7 MCH 29.9 MCHC 33.3 RDW 14.5 Plt Count 149 L Neut % (Auto) 80.8 H Lymph % (Auto) 9.9 L [place] % (Auto) 8.3 Eos % (Auto) 0.7 L Baso % (Auto) 0.3 Neut # (Auto) 11240 H Lymph # (Auto) 1400 [place] # (Auto) 1100 H Eos # (Auto) 100 Baso # (Auto) 0 Sodium 141 Potassium 3.7 Chloride 107 Carbon Dioxide 28 BUN 33 H Creatinine 1.86 H Estimated GFR 34.9 L BUN/Creatinine Ratio 17.7 Glucose 417 H D Hemoglobin A1c Lactate Calcium 8.7 Total Bilirubin 1.4 H Conjugated Bilirubin Unconjugated Bilirubin AST 392 H ALT 243 H Alkaline Phosphatase 233 H Troponin I < 0.012 Total Protein 6.6 Albumin 3.4 L Globulin 3.2 Albumin/Globulin Ratio 1.1 Triglycerides Cholesterol LDL Cholesterol, Calc HDL Cholesterol Procalcitonin A. baumannii (PCR) Key albicans (PCR) C. glabrata (PCR) C. krusei (PCR) C. parapsilosis (PCR) C. tropicalis (PCR) COVID-19 PCR Enterobacteriac sp PCR E. cloacae complex PCR Enterococcus sp PCR E. coli (PCR) H. influenzae (PCR) Hep Bs Antigen Hepatitis C Antibody Klebsiella oxytoca PCR Klebsiella pneumoniae List. monocytogenes PCR N. meningitidis (PCR) Proteus species (PCR) Serratia marcescens PCR Staphylococcus sp PCR Staph aureus (PCR) mecA-Methicil Res Gene Streptococcus sp PCR Group A Strep (PCR) Strep agalactiae (PCR) Strep pneumoniae (PCR) P. aeruginosa (PCR) Tracie/B-Vanco Res Genes KPC-Carbap Res Gene PCR 07/12/19 07/12/19 07/12/19 04:15 04:15 04:15 WBC RBC Hgb Hct MCV MCH MCHC RDW Plt Count Neut % (Auto) Lymph % (Auto) [place] % (Auto) Eos % (Auto) Baso % (Auto) Neut # (Auto) Lymph # (Auto) [place] # (Auto) Eos # (Auto) Baso # (Auto) Sodium 142 Potassium 4.3 Chloride 110 H Carbon Dioxide 28 BUN 33 H Creatinine 1.78 H Estimated GFR 36.7 L BUN/Creatinine Ratio 18.5 Glucose 212 H D Hemoglobin A1c 9.9 H Lactate Calcium 8.6 Total Bilirubin 0.9 Conjugated Bilirubin 0.0 Unconjugated Bilirubin 0.5 AST 265 H ALT 228 H Alkaline Phosphatase 212 H Troponin I Total Protein 6.3 Albumin 3.2 L Globulin 3.1 Albumin/Globulin Ratio 1.0 Triglycerides 83 Cholesterol 125 L LDL Cholesterol, Calc 84 HDL Cholesterol 24 L Procalcitonin A. baumannii (PCR) Key albicans (PCR) C. glabrata (PCR) C. krusei (PCR) C. parapsilosis (PCR) C. tropicalis (PCR) COVID-19 PCR Enterobacteriac sp PCR E. cloacae complex PCR Enterococcus sp PCR E. coli (PCR) H. influenzae (PCR) Hep Bs Antigen Negative Hepatitis C Antibody Negative Klebsiella oxytoca PCR Klebsiella pneumoniae List. monocytogenes PCR N. meningitidis (PCR) Proteus species (PCR) Serratia marcescens PCR Staphylococcus sp PCR Staph aureus (PCR) mecA-Methicil Res Gene Streptococcus sp PCR Group A Strep (PCR) Strep agalactiae (PCR) Strep pneumoniae (PCR) P. aeruginosa (PCR) Tracie/B-Vanco Res Genes KPC-Carbap Res Gene PCR 07/12/19 07/12/19 07/12/19 04:15 08:05 08:05 WBC RBC Hgb Hct MCV MCH MCHC RDW Plt Count Neut % (Auto) Lymph % (Auto) [place] % (Auto) Eos % (Auto) Baso % (Auto) Neut # (Auto) Lymph # (Auto) [place] # (Auto) Eos # (Auto) Baso # (Auto) Sodium 142 Potassium 3.9 Chloride 109 H Carbon Dioxide 26 BUN 33 H Creatinine 1.78 H Estimated GFR 36.7 L BUN/Creatinine Ratio 18.5 Glucose 219 H Hemoglobin A1c Lactate 1.4 Calcium 8.4 Total Bilirubin Conjugated Bilirubin Unconjugated Bilirubin AST ALT Alkaline Phosphatase Troponin I Total Protein Albumin Globulin Albumin/Globulin Ratio Triglycerides Cholesterol LDL Cholesterol, Calc HDL Cholesterol Procalcitonin 72.95 H A. baumannii (PCR) Key albicans (PCR) C. glabrata (PCR) C. krusei (PCR) C. parapsilosis (PCR) C. tropicalis (PCR) COVID-19 PCR Enterobacteriac sp PCR E. cloacae complex PCR Enterococcus sp PCR E. coli (PCR) H. influenzae (PCR) Hep Bs Antigen Hepatitis C Antibody Klebsiella oxytoca PCR Klebsiella pneumoniae List. monocytogenes PCR N. meningitidis (PCR) Proteus species (PCR) Serratia marcescens PCR Staphylococcus sp PCR Staph aureus (PCR) mecA-Methicil Res Gene Streptococcus sp PCR Group A Strep (PCR) Strep agalactiae (PCR) Strep pneumoniae (PCR) P. aeruginosa (PCR) Tracie/B-Vanco Res Genes KPC-Carbap Res Gene PCR Assessment & Plan Assessment & Plan narrative: Marty Heard is an 83-year-old male with past medical history of type 2 diabetes, hypothyroidism, atrial fibrillation on Coumadin, hypertension, CKD III, and chronic low back pain who was brought in by EMS reporting that he had been in bed with increasing weakness for the past week. He was found to have a severely elevated blood glucose, and appears dehydrated on exam. His CT shows evidence of pancreatitis as does his elevated lipase, however the patient does not complain of abdominal pain although he does endorse some epigastric pain with nausea and vomiting last night. He is admitted to Medicine for likely pancreatitis and hyperglycemic hyperosmolar syndrome. 1. Acute pancreatitis, present on admission -CT abdomen on admission showed fat stranding around the pancreatic head and surrounding duodenal inflammation as well most consistent with pancreatitis. His lipase is elevated at 9330 and he did have complaints of abdominal pain and nausea night prior to admission, although none currently -will start clear liquids now given lack of abdominal pain -patient has a gallbladder resection, which was done apparently in July of last year, when he was transferred to [facility]. -abdomen MRI noted inflammatory process adjacent to pancreatic head, centered on gas-filled structure at medial border of descending duodenum. On CT the gas-filled structure appeared extra luminal consistent with inflamed duodenal diverticulum verses medial peptic ulcer. -received initial IV hydration, now IV hep-locked -has tolerated clear liquids, advanced diet to full liquids on a.m. 07/12 -triglycerides were normal 2. Possible duodenal diverticulitis, present on admission -this was suggested on abdominal MRI and perhaps causing secondary pancreatitis -continue meropenem which is treating E coli bacteremia -consider surgical consult for EGD if patient not improving 3. E coli bacteremia, present on admission -source unclear, differential diagnosis includes infected duodenal diverticula vs biliary source versus acute/chronic prostatitis as patient had urinary retention on admission, -urinalysis microscopic was normal -procalcitonin 34 on admission, last procalcitonin 73 -repeat CBC, procalcitonin in a.m. -sensitivities pending on positive blood culture 4. Type 2 diabetes mellitus, with HHS, present on admission -patient presented with a glucose level near 600, and appears clinically dehydrated. Ketones are only minimally elevated but there is no anion gap, and no acidosis. This is most consistent with HHS. -insulin drip started on admission and discontinued -glucose trending down -A1c 9.9 indicates poor long-term control -increase Lantus to 25 units b.i.d., with high-dose sliding scale, and 7 units at mealtime. Continue to adjust as necessary. Patient's home regimen consist of 35 units in the morning, and 30 units in the evening of 70/30 mix. 5. Chronic atrial fibrillation -rate controlled, continue metoprolol ER 100 mg q.d. -INR therapeutic on warfarin, continue 5 mg q.p.m. and monitor Q 2 days -TTE mild LVH, LVEF 60-65% 6. Chronic kidney disease, chronic stage III, present on admission -completed IV fluids, acute portion likely secondary to relative dehydration from HHS or possibly low-flow state as noted below. -admit creatinine 1.87, current creatinine 1.78 improving, baseline creatinine 1.6-1.8 7. Chronic low back pain, -resume patient's tramadol 100 mg t.i.d. as needed 8. Elevated liver enzymes -patient presented with an elevated bilirubin of 2.9, AST 474, ALT 265, and alk-phos 252. His INR was elevated at 2.4 but he is on Coumadin. -baseline LFTs in 2019 were normal -etiology unclear but likely biliary stasis or temporary obstruction from inflamed pancreatic head or inflamed duodenal -bilirubin and LFTs are clearly improving 9. Acute urinary retention, present on admission -Garcia catheter placed in the ED and 1400 cc urine drained -started patient on tamsulosin 0.4 mg q.d. -patient has history of BPH surgery x3 and was told his biopsy also showed prostate CA -can try Garcia removal in the next 1-2 days Code: DNR as specified by patient's POLST form. Surrogate decision maker is listed as his son. DVT: On Coumadin, INR therapeutic Dispo: Patient is admitted under inpatient status as his stay is likely to exceed 2 midnights. Ordered PT and OT consultation. Quality VTE Deep Vein Thrombosis/Pulmonary Embolism Present on Admission: No
[2019-07-12] MEDS: METOPROLOL IR 25 MG TABLET 75 MG PO (17:55)
[2019-07-12] MEDS: WARFARIN 5 MG TABLET PO (18:23)
[2019-07-12] MEDS: INSULIN GLARGINE 100 UNIT/ML 3ML PEN 25 UNIT SUBCUT (20:24)
[2019-07-12] MEDS: TRAMADOL 50 MG TABLET 100 MG PO (22:21)
[2019-07-12 23:47] LABS: Hepatitis B Core Antibody Negative (Negative)
[2019-07-12] MEDS: SODIUM CHLORIDE 0.9% FLUSH 10 ML IV (23:54)
[2019-07-13 03:20] VITALS: BP 123/83; PULSE 95; RESP 18; TEMP 36.7; O2SAT 96
--- NOTE | 2019-07-13 03:30 | PC.NURSE ---
Patient seen and assessed at 0010. Is alert and oriented. [facility] but does not wear hearing aids. Breath sounds CTA with RA sat of 98%. HR irregular with rate in 80's; hx of afib. Denies nausea. BT present and is passing flatus. Indwelling catheter related to urinary retention; patent. Chronic back pain for which he takes Tramadol; currently states pain is only 1/10. Is not wanting to reposition so using Ivette bed tilt to change pressure. Did assist to turn onto side to have skin assessed but then back onto back with pillow behind right side. Has 3+ edema in bilateral feet/ankles/legs. Erythema noted to bilateral anterior shins, tops of feet and right outer ankle; states this is chronic due to hx of cellulitis. Wearing bilateral calf SCD's. Gait not assessed at this time but is reported he gets up with 1 assist + walker as is weak and unsteady. Fall risk score is high and bed alarm is activated. Noted CBG ranging mostly in 200-300 range; insulin adjusted yesterday and recheck at 0300 was 147
[2019-07-13 03:39] LABS: Hepatitis B Surf Ab Qualitativ Non Reactive (.)
[2019-07-13] MEDS: LEVOTHYROXINE 50 MCG TABLET PO (05:16)
[2019-07-13 05:33] LABS: Add Manual Diff / Slide Review NO; Basophils Absolute Auto 100 /uL (0-100); Basophils Percent Auto 0.6 % (0-2); Eosinophils Absolute Auto 400 /uL (0-450); Eosinophils Percent Auto 3.8 % (2-4); Hemoglobin 10.6 g/dL (13.5-17.5); INR 2.1 (0.9-1.3); Lymphocytes Absolute Auto 1500 /uL (1100-4500); Lymphocytes Percent Auto 16.2 % (25-40); Mean Corpuscular HGB Conc 34.1 % (30-36); Mean Corpuscular Hemoglobin 30.3 PG (26-34); Mean Corpuscular Volume 88.8 fL (80-100); Monocytes Absolute Auto 600 /uL (0-900); Monocytes Percent Auto 6.4 % (3-14); Neutrophils Absolute Auto 6900 /uL (1500-7000); Platelet Count 128 X10^3/uL (150-400); Prothrombin Time 23.8 SECONDS (10.1-12.7); Red Blood Cell Count 3.49 X10^6/uL (4.5-5.9); Red Cell Distribution Width 14.4 % (11.6-14.8); White Blood Cell Count 9.5 X10^3/uL (4.5-11.0)
[2019-07-13 05:44] LABS: Alanine Aminotransferase 151 IU/L (<50); Albumin 2.9 g/dL (3.5-5.0); Albumin Globulin Ratio 0.9 (1.0-2.8); Alkaline Phosphatase 177 U/L (38-126); Aspartate Aminotransferase 131 IU/L (17-59); BUN Creatinine Ratio 17.8 (6-22); Bilirubin Total 0.9 mg/dL (0.2-1.3); Blood Urea Nitrogen 27 mg/dL (9-20); Calcium 8.1 mg/dL (8.4-10.2); Carbon Dioxide 29 mmol/L (22-32); Chloride 106 mmol/L (98-107); Globulin 3.2 g/dL (1.7-4.1); Glucose 144 mg/dL (80-110); HEMOLYSIS < 15 (0-50); Potassium 3.7 mmol/L (3.4-5.1); Sodium 138 mmol/L (137-145); Total Protein 6.1 g/dL (6.3-8.2)
[2019-07-13 09:00] VITALS: BP 108/45; PULSE 93; RESP 20; TEMP 36.4; O2SAT 96
[2019-07-13] MEDS: INSULIN ASPART 100 UNIT/ML INSULN PEN SUBCUT ×4 (09:24→21:19)
[2019-07-13] MEDS: INSULIN ASPART 100 UNIT/ML INSULN PEN 7 UNIT SUBCUT ×3 (09:25→16:57)
[2019-07-13] MEDS: INSULIN GLARGINE 100 UNIT/ML 3ML PEN 25 UNIT SUBCUT ×2 (09:27→21:18)
[2019-07-13] MEDS: FERROUS SULFATE 325 MG TABLET PO (09:35)
[2019-07-13] MEDS: DOCUSATE 100 MG CAPSULE PO ×2 (09:35→21:17)
[2019-07-13] MEDS: METOPROLOL ER 25 MG TABLET 100 MG PO (09:36)
[2019-07-13] MEDS: SODIUM CHLORIDE 0.9% FLUSH 10 ML IV ×3 (09:36→23:29)
[2019-07-13] MEDS: TAMSULOSIN 0.4 MG CAPSULE PO (09:36)
[2019-07-13] MEDS: TRAMADOL 50 MG TABLET 100 MG PO ×2 (09:48→16:53)
[2019-07-13 10:40] LABS: Procalcitonin 46.39 ng/mL (<0.5)
[2019-07-13 12:00] VITALS: BP 109/66; PULSE 87; RESP 20; TEMP 36.8; O2SAT 97
[2019-07-13] MEDS: MEROPENEM 1 GM/50 ML PIGGYBACK IV ×2 (12:23→23:29)
--- NOTE | 2019-07-13 13:09 | PT.IIE ---
Current Diagnoses Acute pancreatitis without necrosis or infection, unspecified (07/11/19) Medical History (Last Reviewed 07/11/19 @ 11:10 by Nina Koehler MD) Cancer of left ear (Acute) Chronic atrial fibrillation with RVR (Acute) Diabetes (Chronic) E coli infection (Acute) Hernia of abdominal cavity (Acute) Hypothyroidism (Acute) Inguinal hernia bilateral, non-recurrent (Acute) Melanoma (Acute) Prostate cancer (Acute) Physical Therapy Inpatient Evaluation/Re-Eval M1 PT/OT-IP Prior Functional Status Start: 07/13/19 12:05 Freq: NEEDED Status: Active Protocol: Document 07/13/19 12:07 [facility] (Rec: 07/13/19 13:09 [facility] [id number]) Medical Review Prior Functional Status Medical History Reviewed Yes Diet/Fluid Consistency Regular Communication pt reports he lives at home in [place] with his and son. His has alzheimer's an son is disabled. Mobility and Gait pt reports he uses a cane inside the house and a walker for community ambulation. He reports he lives on the main floor of his house and hasn't been upstairs in the past 2 months. Activities of Daily Living and IADL's Per patient report he does all his own ADL's, his son does a lot of the cooking Social History Household Members spouse,children Living Arrangements House Number of Floors (Floors) Two Floors Number of Stairs To Enter/Railing? pt has a ramp to get into his house, he lives on the main floor and hasn't been able to go upstairs in the last 2 months Home Environment Standard Height Toilet Home Equipment Front Wheel Walker,Straight Cane Additional Social History Comment pt reports he uses a cane inside the house and walker outside M2 PT-IP Current Condition Start: 07/13/19 12:05 Freq: NEEDED Status: Active Protocol: Document 07/13/19 12:07 [facility] (Rec: 07/13/19 13:09 [facility] [id number]) Physical Therapy Current Condition Current Condition Evaluation Date 07/13/19 Treatment Diagnosis increasing weakness, back pain ,sob,hyperglycemia Onset Date 07/07/19 Weight Bearing Status Weight Bearing Status Full Weight Bearing M3 PT-IP Subjective Start: 07/13/19 12:05 Freq: NEEDED Status: Active Protocol: Document 07/13/19 12:07 [facility] (Rec: 07/13/19 13:09 [facility] [id number]) Subjective Physical Therapy Visit Type Type Initial Evaluation Visit Start Time 11:15 Visit Stop Time 12:00 Total Visit Minutes 45 Physical Therapy Visit Comments Patient Comments pt sitting up in bed, he agrees to PT and states he would like to try walking with the wheel chair behind him Patient Goals To return home with and son Therapy Pain Assessment Pain When Pain Assessed At Rest Pain Present Pain Present Pain Reported Location Back Intensity 5 Scale Used Numeric (1 - 10) Description With Movement M4 PT-IP Mobility and Gait Start: 07/13/19 12:05 Freq: NEEDED Status: Active Protocol: Document 07/13/19 12:07 [facility] (Rec: 07/13/19 13:09 [facility] [id number]) PT-Bed Mobility Assessment Rolling Type of Rolling Roll to Left Level of Assist Independent Supine to Sit Supine to Sit Minimal Assistance Scooting Scooting to Edge of Bed Minimal Assistance PT-Transfer Assessment Sit to and From Stand Sit to and from Stand Minimal Assistance Equipment Transfer Assistive Device Gait Belt,Front Wheeled Walker Orthotic/Prosthetic Devices or Brace: No Transfers Transfer Destination Chair Transfer Technique Stand Step Pivot Transfer Ability Level of Assist Contact Guard Assistance Comments Mobility Comments pt able to roll to his left side Ind, he needed the bed raised to give assist to sit but was then able to pull himself up to a seated position. He did complain of back pain when attempting to scoot forward on the bed in a seated position and this took him many tries and Min A to scoot to edge of bed. He wanted to do as much as he could on his own to minimize pain to his low back. Sit- stand with FWW was Min A. The patient ambulated to the bedside chair and sat with CGA . At this point he felt too tired to ambulate further but reported that he would like to ambulate further this afternoon. His legs were reclined and pillows were positioned behind his back and he reported feeling comfortable. Gait Assessment Gait Gait Assistance Required: Contact Guard Assist Distance (Feet) 5 Able to Maintain Weight Bearing Status Yes During Gait Assistive Devices Assistive Device Gait Belt,Front Wheeled Walker Orthotic/Prosthetic Devices or Brace: No Gait Deviations General Gait Pattern Decreased Stride Length,Wide Based Gait Factors Limiting Gait Function Factors Limiting Gait Function Pain Comments Gait Comments low back pain and fatigue limited pt's ability to go further with ambulation. He reported he would like to try ambulating again this afternoon. PT-Balance Assessment Sitting Balance and Reactions Static Sitting Balance Ability Good Dynamic Sitting Balance Ability Good Standing Balance and Reactions Static Standing Balance Ability Good M5 PT-IP Objective Assessments Start: 07/13/19 12:05 Freq: NEEDED Status: Active Protocol: Document 07/13/19 12:07 [facility] (Rec: 07/13/19 13:09 [facility] [id number]) Orientation Orientation/Cognition Level of Alertness Alert Safety Awareness Understands Safety Issues Gross Range of Motion Upper Extremity ROM Assessment Within Functional Limits Lower Extremity ROM Assessment Within Functional Limits Strength Upper Extremity Strength Assessment Within Functional Limits Lower Extremity Strength Assessment Within Functional Limits Coordination Assessment Gross Coordination Gross Coordination WNL Sensation Assessment Sensation Gross Sensation WNL Muscle Tone Muscle Tone WNL Yes M7 PT-IP Assessment and Plan Start: 07/13/19 12:05 Freq: NEEDED Status: Active Protocol: Document 07/13/19 12:07 [facility] (Rec: 07/13/19 13:09 [facility] [id number]) PT Summary Assessment and Plan Potential Rehabilitation Potential Good Status of Condition at Evaluation Evolving Summary Impairments Pain,Strength,Transfers,Gait Assessment Summary The patient is a 83 year old male with pancreatitis and pmhx of type II diabetes, hypothyroidism, atrial fib, hypertension, coronary artery disease with reports of increasing weakness and back pain for approximately 1 week. Pt lives in [place] with his and son. His has alzheimer's. He states he uses a cane at home and a walker outside the house. He has been feeling weaker in the past 2 months and he has not been able to go upstairs in his home. He is living on the main floor. There is a ramp leading up to his house. He was very eager to participate with PT but he did become fatigued with the transfer to the bedside chair. He denied SOB but was fatigued and LBP seemed to increase during the transfer. He was able to independently roll in bed to the left, he required min A to sit up at the edge of the bed and for sit-stand. Once standing he was CGA for transfers and gait to the chair. He notes he would like to try and ambulate further this afternoon with a wheelchair behind him. Goals Bed Mobility Goal Independent Transfer Goal Standby Assistance Gait Goal Standby Assistance Gait Distance 100 Days to Meet Goals 5 Frequency of Treatment Frequency Of Treatment Twice a Day Treatment Plan Physical Therapy Treatment Plan Bed Mobility Training,Transfer Training,Gait Training, Therapeutic Exercise,Discharge Planning Recommendations To Nursing Amount of Assist Needed 1 Person Assist Discharge Recommendations PT Discharge Recommendations Home Transportation Needs at Discharge Private Vehicle
--- NOTE | 2019-07-13 13:20 | P.PN_ITS ---
Subjective Subjective Date Patient Seen: 07/13/19 Interval history: Marty Heard is an 83-year-old male with past medical history of type 2 diabetes, hypothyroidism, atrial fibrillation on Coumadin, hypertension, CKD III, and chronic low back pain who was brought in by EMS reporting that he had been in bed with increasing weakness for the past week. He was found to have a severely elevated blood glucose, and appeared dehydrated on exam. His CT shows evidence of pancreatitis as does his elevated lipase, however the patient does not complain of abdominal pain although he does endorse some epigastric pain with nausea and vomiting night prior to admission. He is admitted to Medicine for likely pancreatitis and hyperglycemic hyperosmolar syndrome. Blood culture from admission growing E coli. Patient states he feels better and tolerated full liquid diet for breakfast and lunch. He does not have abdominal pain at this time. He had Garcia catheter placed in the ER due to acute urinary retention. Exam Vital Signs (past 8 hours): - 07/13/19 09:00 07/13/19 12:00 Temperature 97.6 F 98.2 F Pulse Rate 93 H 87 Respiratory Rate 20 20 Blood Pressure 108/45 L 109/66 Pulse Oximetry 96 97 Oxygen Delivery Method Room Air Oxygen Flow Rate 0 Narrative Exam Narrative: General: Alert pleasant obese male in no acute distress Lungs: Clear to auscultation Heart: Irregularly irregular Abdomen: Obese, soft, nontender Extremities: Chronic venous stasis edema bilateral lower legs Neurological: Affect normal, nonfocal Objective Labs Result Diagrams: 07/13/19 05:15 07/13/19 05:15 Labs: Laboratory Results - last 24 hr 07/11/19 07/12/19 07/13/19 14:50 04:15 05:15 WBC 9.5 RBC 3.49 L Hgb 10.6 L Hct 31.0 L MCV 88.8 MCH 30.3 MCHC 34.1 RDW 14.4 Plt Count 128 L Neut % (Auto) 73.0 Lymph % (Auto) 16.2 L Tompkins % (Auto) 6.4 Eos % (Auto) 3.8 Baso % (Auto) 0.6 Neut # (Auto) 6900 Lymph # (Auto) 1500 Tompkins # (Auto) 600 Eos # (Auto) 400 Baso # (Auto) 100 PT INR Sodium Potassium Chloride Carbon Dioxide BUN Creatinine Estimated GFR BUN/Creatinine Ratio Glucose Calcium Total Bilirubin AST ALT Alkaline Phosphatase Total Protein Albumin Globulin Albumin/Globulin Ratio Procalcitonin Hep Bs Antibody Non reactive Hep B Core Total Ab Negative 07/13/19 07/13/19 07/13/19 05:15 05:15 05:41 WBC RBC Hgb Hct MCV MCH MCHC RDW Plt Count Neut % (Auto) Lymph % (Auto) Tompkins % (Auto) Eos % (Auto) Baso % (Auto) Neut # (Auto) Lymph # (Auto) Tompkins # (Auto) Eos # (Auto) Baso # (Auto) PT 23.8 H INR 2.1 H Sodium 138 Potassium 3.7 Chloride 106 Carbon Dioxide 29 BUN 27 H Creatinine 1.52 H Estimated GFR 44.0 L BUN/Creatinine Ratio 17.8 Glucose 144 H Calcium 8.1 L Total Bilirubin 0.9 AST 131 H ALT 151 H Alkaline Phosphatase 177 H Total Protein 6.1 L Albumin 2.9 L Globulin 3.2 Albumin/Globulin Ratio 0.9 L Procalcitonin 46.39 H Hep Bs Antibody Hep B Core Total Ab Assessment & Plan Assessment & Plan narrative: Marty Heard is an 83-year-old male with past medical history of type 2 diabetes, hypothyroidism, atrial fibrillation on Coumadin, hypertension, CKD III, and chronic low back pain who was brought in by EMS reporting that he had been in bed with increasing weakness for the past week. He was found to have a severely elevated blood glucose, and appears dehydrated on exam. His CT shows evidence of pancreatitis as does his elevated lipase, however the patient does not complain of abdominal pain although he does endorse some epigastric pain with nausea and vomiting last night. He is admitted to Medicine for likely pancreatitis and hyperglycemic hyperosmolar syndrome. 1. Acute pancreatitis, present on admission -CT abdomen on admission showed fat stranding around the pancreatic head and calixto rrounding duodenal inflammation as well most consistent with pancreatitis. -His lipase is elevated at 9330 and he did have complaints of abdominal pain and nausea night prior to admission, although none currently -patient has a gallbladder resection, which was done apparently in July of last year, when he was transferred to [facility]. -abdomen MRI noted inflammatory process adjacent to pancreatic head, centered on gas-filled structure at medial border of descending duodenum. On CT the gas- filled structure appeared extra luminal consistent with inflamed duodenal diverticulum verses medial peptic ulcer. -elevated bilirubin and LFTs, see below -received initial IV hydration, now IV hep-locked -continue full liquid diet -triglycerides were normal 2. Possible duodenal diverticulitis, present on admission -this was suggested on abdominal MRI and perhaps causing secondary pancreatitis and biliary obstruction -continue meropenem which is treating E coli bacteremia -consider surgical consult for EGD if patient not improving 3. E coli bacteremia, present on admission -source unclear, differential diagnosis includes infected duodenal diverticula vs biliary source versus acute/chronic prostatitis as patient had urinary retention on admission, -urinalysis microscopic was normal -WBC trending down and normalized -procalcitonin 34 on admission, subsequent procalcitonin 73, last procalcitonin 46 -repeat procalcitonin in a.m. -sensitivities pending on positive blood culture 4. Type 2 diabetes mellitus, with HHS, present on admission -patient presented with a glucose level near 600, and appears clinically dehydrated. Ketones are only minimally elevated but there is no anion gap, and no acidosis. This is most consistent with HHS. -insulin drip started on admission and discontinued -glucose trending down with increased insulin -A1c 9.9 indicates poor long-term control -increased Lantus to 25 units b.i.d., with high-dose sliding scale, and 7 units at mealtime. Continue to adjust as necessary. -Patient's home regimen consist of 35 units in the morning, and 30 units in the evening of 70/30 mix. 5. Chronic atrial fibrillation -rate controlled, continue metoprolol ER 100 mg q.d. -INR therapeutic on warfarin, continue 5 mg q.p.m. and monitor Q 2 days -TTE mild LVH, LVEF 60-65% 6. Chronic kidney disease, chronic stage III, present on admission -completed IV fluids, acute portion likely secondary to relative dehydration from HHS or possibly low-flow state as noted below. -admit creatinine 1.87, current creatinine 1.52 improving, baseline creatinine 1.6-1.8 7. Chronic low back pain, -resume patient's tramadol 100 mg t.i.d. as needed -PT/OT consult 8. Elevated liver enzymes -patient presented with an elevated bilirubin of 2.9, AST 474, ALT 265, and alk-phos 252. His INR was elevated at 2.4 but he is on Coumadin. -baseline LFTs in 2019 were normal -etiology unclear but likely biliary stasis or temporary obstruction from inflamed pancreatic head or inflamed duodenal -bilirubin and LFTs are clearly improving 9. Acute urinary retention, present on admission -Garcia catheter placed in the ED and 1400 cc urine drained -started patient on tamsulosin 0.4 mg q.d. -patient has history of BPH surgery x3 and was told his biopsy also showed prostate CA, he does endorse chronic urinary frequency and urgency at home, received notice to see his urologist and needs to schedule appointment when able -patient wants to wait until tomorrow to remove Garcia Code: DNR as specified by patient's POLST form. Surrogate decision maker is listed as his son. DVT: On Coumadin, INR therapeutic Dispo: Patient is admitted under inpatient status as his stay is likely to exceed 2 midnights. Ordered PT and OT consultation. Quality VTE Deep Vein Thrombosis/Pulmonary Embolism Present on Admission: No
[2019-07-13 16:00] VITALS: BP 102/68; PULSE 91; RESP 16; TEMP 36.9; O2SAT 94
--- NOTE | 2019-07-13 16:22 | PT.IPTN ---
Current Diagnoses Acute pancreatitis without necrosis or infection, unspecified (07/11/19) Physical Therapy Treatment Note M2 PT-IP Current Condition Start: 07/13/19 12:05 Freq: NEEDED Status: Active Protocol: Document 07/13/19 12:07 [facility] (Rec: 07/13/19 13:09 [facility] [id number]) Physical Therapy Current Condition Current Condition Evaluation Date 07/13/19 Treatment Diagnosis increasing weakness, back pain ,sob,hyperglycemia Onset Date 07/07/19 Weight Bearing Status Weight Bearing Status Full Weight Bearing M3 PT-IP Subjective Start: 07/13/19 12:05 Freq: NEEDED Status: Active Protocol: Document 07/13/19 16:12 [facility] (Rec: 07/13/19 16:22 [facility] [id number]) Subjective Physical Therapy Visit Type Type Treatment Note Visit Start Time 13:10 Visit Stop Time 13:40 Total Visit Minutes 30 Physical Therapy Visit Comments Patient Comments pt still sitting up in bedside chair since 12:00. He reports wanting to walk in the hallway. Ate a good lunch Patient Goals Goals include returning home with his and son Therapy Pain Assessment Pain When Pain Assessed At Rest Pain Present Pain Present Denied Pain M4 PT-IP Mobility and Gait Start: 07/13/19 12:05 Freq: NEEDED Status: Active Protocol: Document 07/13/19 12:07 [facility] (Rec: 07/13/19 13:09 [facility] [id number]) PT-Bed Mobility Assessment Rolling Type of Rolling Roll to Left Level of Assist Independent Supine to Sit Supine to Sit Minimal Assistance Scooting Scooting to Edge of Bed Minimal Assistance PT-Transfer Assessment Sit to and From Stand Sit to and from Stand Minimal Assistance Equipment Transfer Assistive Device Gait Belt,Front Wheeled Walker Orthotic/Prosthetic Devices or Brace: No Transfers Transfer Destination Chair Transfer Technique Stand Step Pivot Transfer Ability Level of Assist Contact Guard Assistance Comments Mobility Comments pt able to roll to his left side Ind, he needed the bed raised to give assist to sit but was then able to pull himself up to a seated position. He did complain of back pain when attempting to scoot forward on the bed in a seated position and this took him many tries and Min A to scoot to edge of bed. He wanted to do as much as he could on his own to minimize pain to his low back. Sit- stand with FWW was Min A. The patient ambulated to the bedside chair and sat with CGA . At this point he felt too tired to ambulate further but reported that he would like to ambulate further this afternoon. His legs were reclined and pillows were positioned behind his back and he reported feeling comfortable. Gait Assessment Gait Gait Assistance Required: Contact Guard Assist Distance (Feet) 5 Able to Maintain Weight Bearing Status Yes During Gait Assistive Devices Assistive Device Gait Belt,Front Wheeled Walker Orthotic/Prosthetic Devices or Brace: No Gait Deviations General Gait Pattern Decreased Stride Length,Wide Based Gait Factors Limiting Gait Function Factors Limiting Gait Function Pain Comments Gait Comments low back pain and fatigue limited pt's ability to go further with ambulation. He reported he would like to try ambulating again this afternoon. PT-Balance Assessment Sitting Balance and Reactions Static Sitting Balance Ability Good Dynamic Sitting Balance Ability Good Standing Balance and Reactions Static Standing Balance Ability Good M5 PT-IP Objective Assessments Start: 07/13/19 12:05 Freq: NEEDED Status: Active Protocol: Document 07/13/19 12:07 [id number] Orientation Orientation/Cognition Level of Alertness Alert Safety Awareness Understands Safety Issues Gross Range of Motion Upper Extremity ROM Assessment Within Functional Limits Lower Extremity ROM Assessment Within Functional Limits Strength Upper Extremity Strength Assessment Within Functional Limits Lower Extremity Strength Assessment Within Functional Limits Coordination Assessment Gross Coordination Gross Coordination WNL Sensation Assessment Sensation Gross Sensation WNL Muscle Tone Muscle Tone WNL Yes M6 PT-IP Treatment Start: 07/13/19 12:05 Freq: NEEDED Status: Active Protocol: Document 07/13/19 16:12 [facility] (Rec[facility] 07/13/19 16:22 [id number] Treatment Exercises Exercises Ankle Pumps Other Treatments Other Treatment Performed pt transfered from sitting in bedside chair to standing with FWW with CGA, he ambulated in the hallway x 200 feet with STAFF ELECTRICAL ENGINEER following behind with wheel chair with CGA. He wished to go back to the bedside chair following gait as this was more comfortable on his back. He transferred with CGA to sit in the chair. He was reclined comfortably and call light was left within reach M7 PT-IP Assessment and Plan Start: 07/13/19 12:05 Freq: NEEDED Status: Active Protocol: Document 07/13/19 16:12 [facility] (Rec: 07/13/19 16:22 [facility] [id number]) PT Summary Assessment and Plan Potential Rehabilitation Potential Good Status of Condition at Evaluation Evolving Summary Impairments Pain,Strength,Transfers,Gait Assessment Summary The patient did much better this PM with mobility and pain control for his low back. He has a easier time getting out of the bedside chair as compared to the bed. He was able to ambulate in the hallway 200 feet with CGA. Transfers were also CGA. Goals Bed Mobility Goal Independent Transfer Goal Standby Assistance Gait Goal Standby Assistance Gait Distance 100 Days to Meet Goals 5 Frequency of Treatment Frequency Of Treatment Twice a Day Treatment Plan Physical Therapy Treatment Plan Bed Mobility Training,Transfer Training,Gait Training, Therapeutic Exercise,Discharge Planning Recommendations To Nursing Amount of Assist Needed 1 Person Assist Discharge Recommendations PT Discharge Recommendations Home Transportation Needs at Discharge Private Vehicle
--- NOTE | 2019-07-13 16:25 | OT.IP.EVAL ---
Current Diagnoses Acute pancreatitis without necrosis or infection, unspecified (07/11/19) Past Medical History (Last Reviewed 07/11/19 @ 11:10 by Nina Koehler MD) Cancer of left ear (Acute) Chronic atrial fibrillation with RVR (Acute) Diabetes (Chronic) E coli infection (Acute) Hernia of abdominal cavity (Acute) Hypothyroidism (Acute) Inguinal hernia bilateral, non-recurrent (Acute) Melanoma (Acute) Prostate cancer (Acute) Occupational Therapy Inpatient Evaluation/Re-Eval M1 PT/OT-IP Prior Functional Status Start: 07/13/19 17:06 Freq: NEEDED Status: Active Protocol: Document 07/13/19 15:48 [facility] (Rec: 07/13/19 17:43 [facility] [id number]) Medical Review Prior Functional Status Medical History Reviewed Yes Diet/Fluid Consistency Regular Communication pt reports he lives at home in [place] with his and son. His has alzheimers an son is disabled. Mobility and Gait pt reports he uses a cane inside the house and a 4WW for community ambulation. He reports he lives on the main floor of his house and hasn't been upstairs in the past 2 months. Activities of Daily Living and IADL's Per patient report he does all his own ADL's with assist of LB dressing equipment and at times needing assist for LB dressing, his son does a lot of the cooking Social History Household Members spouse,children Living Arrangements House Number of Floors (Floors) Two Floors Number of Stairs To Enter/Railing? pt has a ramp to get into his house, he lives on the main floor and hasn't been able to go upstairs in the last 2 months Home Environment Standard Height Toilet Home Equipment Front Wheel Walker,Straight Cane Additional Social History Comment pt reports he uses a cane inside the house and walker outside M2 OT-IP Current Condition Start: 07/13/19 17:06 Freq: Status: Active Protocol: Document 07/13/19 15:48 [facility] (Rec: 07/13/19 17:43 [facility] [id number]) Occupational Therapy Current Condition Current Condition Evaluation Date 07/13/19 Treatment Diagnosis Acute pancreatitis Diagnosis Onset Date 07/11/19 Weight Bearing Status Weight Bearing Status Weight Bear as Tolerated M3 OT- IP Subjective and Pain Start: 07/13/19 17:06 Freq: Status: Active Protocol: Document 07/13/19 15:48 [facility] (Rec: 07/13/19 17:43 [facility] [id number]) OT- Subjective Occupational Therapy Visit Type Type Initial Evaluation Visit Start Time 15:48 Visit Stop Time 16:25 Total Visit Minutes 37 Occupational Therapy Visit Comments Patient Comments Pt wanting to get up and use the bathroom. Patient/Caregiver Goals To go home when medically stable. OT Pain Assessment Pain When Pain Assessed During Mobility Pain Present Pain Present Pain Reported M4 OT- IP ADL's Start: 07/13/19 17:06 Freq: Status: Active Protocol: Document 07/13/19 15:48 [facility] (Rec: 07/13/19 17:43 [facility] [id number]) OT [id number] Comments OT Self-Feeding Comments Not at meal time. OT ADL-Grooming General Evaluation Grooming Ability Standby Assistance Comments OT Grooming Comments Pt able to stand with FWW to wash his hands and face. OT ADL-Oral Care Comments Oral Care Comments Pt states has no teeth and usually rinses his mouth out with tea. OT ADL-Dressing Comments OT Dressing Comments Pt states uses irrigation equipment remover, sock aid, transfer pole and grab bars to assist for LB dressing needs and not wanting to practice at this time. OT ADL-Toileting Comments OT Toileting Comments Pt only having gas after sitting on the toilet. Pt states use of HHSP at home to clean and has not had success of use of toilet aids at home. Pt states family could help if needed. OT ADL-Bathing Comments OT Bathing Comments Pt not wanting to shower at this time. Pt states stands to shower and with multiple grab bars in the shower and does not sit on the built in shower seat . M5 OT- IP IADL's Start: 07/13/19 17:06 Freq: Status: Active Protocol: Document 07/13/19 15:48 [facility] (Rec: 07/13/19 17:43 [facility] [id number]) OT-Instrumental Activities of Daily Living Home Safety Awareness Awareness of Need for Assistance at Home Good Awareness Ability to Problem Solve Emergency Able to Problem Solve Situations Medication Management Medication Management No Deficits Identified Money Management Money Management No Deficits Identified Meal Preparation Meal Preparation Caregiver Provides Assist Fiscal Accountant Fiscal Accountant Caregiver Provides Assist Driving Driving Comments Pt states has not been driving since COVID -19. M6 OT- IP Functional Cognition Start: 07/13/19 17:06 Freq: Status: Active Protocol: Document 07/13/19 15:48 [facility] (Rec: 07/13/19 17:43 [facility] [id number]) Cognitive Factors Limiting Selfcare Function Cognitive Ability Level of Alertness Alert Patient Orientation Name,Age,Birthday,Month,Date, Year,Day of Week,Place, Situation Attention Span Ability Capable of Focused Attention, Capable of Sustained Attention Ability to Follow Commands Able to Follow Multi-Step Commands Memory Description Short Term Impaired Cognitive Comments Cognitive Assessment Comments Pt needing reminders that he was going to wash up at the sink as he forgot after trying to use the toilet. Pt has good awareness of his deficits and has multiple modifications at home that he has made and also from recommendations for home health therapy in the past. OT- Vision and Hearing OT- Hearing Assessment OT- Hearing Assessment Hearing Impaired OT- Vision Assessment Visual Acuity Glasses All The Time Vision Assessment Comments Pt states has blurred vision due to hx of steel shavings in right eye. M7 OT- IP Mobility and Balance Start: 07/13/19 17:06 Freq: Status: Active Protocol: Document 07/13/19 15:48 [facility] (Rec: 07/13/19 17:43 [facility] [id number]) OT-Transfer Assessment Sit to and From Stand Sit to and from Stand Standby Assistance,Contact Guard Assistance Transfers Transfer Ability Standby Assistance Technique Transfer Destination Bed,Toilet Devices Transfer Assistive Devices Gait Belt,Front Wheeled Walker Comments Mobility Comments Pt needing increased time to get up from the recliner with heavy use of arms on the armrests. Pt states has a transfer pole and grab bar by his big chair to help get up. Pt states has 2 steps with transfer pole on the left and rail on the right to get up to his bed. OT- Gait Assessment Comments Gait Ability Comments Pt close SBA with FWW, tends to walk with flexed posture due to long history on back pain. Pt states usually wears shoes but family to bring his clothing in tomorrow. OT- Balance Assessment Sitting Balance and Reactions Static Sitting Balance Ability Normal Standing Balance and Reactions Static Standing Balance Ability Fair M8 OT- IP Objective Assessments Start: 07/13/19 17:06 Freq: Status: Active Protocol: Document 07/13/19 15:48 [facility] (Rec: 07/13/19 17:43 [facility] [id number]) OT Gross Range of Motion Upper Extremity Range of Motion Assessment Within Functional Limits OT Strength Upper Extremity Strength Assessment Within Functional Limits M9 OT- IP Assessment and Plan Start: 07/13/19 17:06 Freq: Status: Active Protocol: Document 07/13/19 15:48 [facility] (Rec: 07/13/19 17:43 [facility] [id number]) OT Summary Assessment and Plan Potential Rehabilitation Potential Good Analytic Complexity at Evaluation Low Summary OT Impairments Balance,Functional Mobility, Dressing,Toileting,Bathing, Shower Transfers,Activity Tolerance Progress Towards Goals Slow Progress due to Pain,Slow Progress due to Medical Issues Assessment Summary Pt low complexity with diagnosis of acute pancreatitis and main barrier are weakness and back pain and now needing at time CGA to stand needs. Pt has who has Alzheimer and son with disabilites that are able to assist pt with needs. Pt would benefit from home health but is fearful of having people come to the house due to recent pandemic. Pt looking to go home with assist when medically stable. Goals Grooming Goal Independent Dressing Goal Independent,Oil Well Fishing Tool Operator,Sock Aid Toileting Goal Independent Bathing Goal Independent Toilet Transfer Goal Independent Shower Transfer Goal Independent Days to Meet Goals 5 Frequency of Treatment Frequency Of Treatment Once a Day Treatment Plan OT Treatment Plan ADL Training,Functional Mobility,Patient/Family Education,Discharge Planning Other Treatment Recommendations and Next Shower Treatment Focus Discharge Recommendations OT Discharge Recommendations Home with Assistance Home Equipment Needs Pt has all equipment needs. Transportation Needs at Discharge Private Vehicle
[2019-07-13] MEDS: WARFARIN 5 MG TABLET PO (16:52)
--- NOTE | 2019-07-13 17:40 | PC.NURSE ---
Addendum entered by Celine Chery R.N. 07/13/19 21:29: Pt resting quietly in bed and states is comfortable. BL calf scd's in place. Pedal pulses present with doppler BL. [place] and warm extremities. Original Note: Pt up in recliner. Requests footrest be elevated to treat discoloration/coolness to feet BL. Right foot is blue in color and pt reports this is not a new finding. Pitting edema to feet BL R > L. BL LE's elevated. Multiple warm blankets per pt request. Admits to back pain 10/22 increasing with movement. Medicated as per emar. Does report diminished sensation to BL LE's as a result of back condition/pain. O.T. has seen pt this evening shift. Garcia to gravity.
[2019-07-13 20:00] VITALS: BP 106/61; PULSE 90; RESP 16; TEMP 36.7; O2SAT 96
[2019-07-14] VITALS: BP 117/74; PULSE 81; RESP 18; TEMP 36.2; O2SAT 98
--- NOTE | 2019-07-14 02:02 | PC.NURSE ---
Patient seen and assessed at 2345. Is alert and oriented. [place] and does not wear hearing aids. Breath sounds diminished but CTA with RA sat of 98%. HR irregular; has hx of afib. Denies nausea. BT present and is passing flatus but has not had a BM since 07/09. Indwelling catheter due to urinary retention on admission; patent. Generalized edema with bilateral LE having 3+ edema. Erythema to bilateral anterior LE and right lateral ankle. Is able to turn himself but mostly lies on back with pillow under left side. Has chronic back pain but currently denies having any pain having taken Tramadol on previous shift. Wearing bilateral calf SCD's. Fall risk score is high and bed alarm is activated.
[2019-07-14 04:00] VITALS: BP 126/88; PULSE 82; RESP 18; TEMP 36.8; O2SAT 98
[2019-07-14] MEDS: LEVOTHYROXINE 50 MCG TABLET PO (05:30)
[2019-07-14 05:35] LABS: Alanine Aminotransferase 114 IU/L (<50); Albumin Globulin Ratio 0.9 (1.0-2.8); Alkaline Phosphatase 179 U/L (38-126); Aspartate Aminotransferase 91 IU/L (17-59); BUN Creatinine Ratio 18.2 (6-22); Bilirubin Total 0.8 mg/dL (0.2-1.3); Blood Urea Nitrogen 25 mg/dL (9-20); Calcium 8.2 mg/dL (8.4-10.2); Carbon Dioxide 29 mmol/L (22-32); Chloride 104 mmol/L (98-107); Estimated Glomerular Filt Rate 49.6 mL/min (>60); Globulin 3.2 g/dL (1.7-4.1); Glucose 127 mg/dL (80-110); HEMOLYSIS < 15 (0-50); Sodium 135 mmol/L (137-145); Total Protein 6.2 g/dL (6.3-8.2)
[2019-07-14 05:53] LABS: Procalcitonin 30.47 ng/mL (<0.5)
[2019-07-14 07:45] VITALS: BP 127/77; PULSE 82; RESP 16; TEMP 36.3; O2SAT 95
[2019-07-14] MEDS: TAMSULOSIN 0.4 MG CAPSULE PO (09:03)
[2019-07-14] MEDS: METOPROLOL ER 25 MG TABLET 100 MG PO (09:04)
[2019-07-14] MEDS: DOCUSATE 100 MG CAPSULE PO (09:04)
[2019-07-14] MEDS: FERROUS SULFATE 325 MG TABLET PO (09:04)
[2019-07-14] MEDS: INSULIN ASPART 100 UNIT/ML INSULN PEN SUBCUT ×4 (09:07→20:22)
[2019-07-14] MEDS: INSULIN GLARGINE 100 UNIT/ML 3ML PEN 25 UNIT SUBCUT ×2 (09:08→20:22)
[2019-07-14] MEDS: INSULIN ASPART 100 UNIT/ML INSULN PEN 7 UNIT SUBCUT ×3 (09:08→17:01)
[2019-07-14 12:00] VITALS: BP 123/68; PULSE 92; RESP 16; TEMP 36.4; O2SAT 94
[2019-07-14] MEDS: SODIUM CHLORIDE 0.9% FLUSH 10 ML IV ×2 (12:13→20:25)
[2019-07-14] MEDS: MEROPENEM 1 GM/50 ML PIGGYBACK IV (12:22)
--- NOTE | 2019-07-14 12:30 | PT.IPTN ---
Current Diagnoses Acute pancreatitis without necrosis or infection, unspecified (07/11/19) Physical Therapy Treatment Note M2 PT-IP Current Condition Start: 07/13/19 12:05 Freq: NEEDED Status: Active Protocol: Document 07/13/19 12:07 [facility] (Rec: 07/13/19 13:09 [facility] [id number]) Physical Therapy Current Condition Current Condition Evaluation Date 07/13/19 Treatment Diagnosis increasing weakness, back pain ,sob,hyperglycemia Onset Date 07/07/19 Weight Bearing Status Weight Bearing Status Full Weight Bearing M3 PT-IP Subjective Start: 07/13/19 12:05 Freq: NEEDED Status: Active Protocol: Document 07/14/19 12:30 [facility] (Rec: 07/14/19 12:52 [facility] [id number]) Subjective Physical Therapy Visit Type Type Treatment Note Visit Start Time 11:45 Visit Stop Time 12:16 Total Visit Minutes 36 Number of DIRECTOR OF MATERNITY SERVICES Visits 0 Physical Therapy Visit Comments Patient Comments Pt agreeable to get up to chair Patient Goals Goals include returning home with his and son M4 PT-IP Mobility and Gait Start: 07/13/19 12:05 Freq: NEEDED Status: Active Protocol: Document 07/14/19 12:30 [facility] (Rec: 07/14/19 13:00 [facility] [id number]) PT-Bed Mobility Assessment Supine to Sit Supine to Sit Moderate Assistance,Head of Bed Elevated,Bedrails Scooting Scooting to Edge of Bed Moderate Assistance PT-Transfer Assessment Sit to and From Stand Sit to and from Stand Minimal Assistance,Moderate Assistance,Use of Upper Extremities Equipment Transfer Assistive Device Gait Belt,Front Wheeled Walker Orthotic/Prosthetic Devices or Brace: No Transfers Transfer Destination Chair Transfer Technique Stand Step Pivot Transfer Ability Level of Assist Minimal Assistance Comments Mobility Comments Pt got LE over EOB and used bed rails to scoot himself toward EOB while HOB was elevated to 30 deg. He then required mod A to get to sitting up positon and was unable to scoot using bed rails and UE to scoot fwd so asked PT to elevated HOB as high as it went as he did not want PT to pull on him. Pt then used mod A from PT with use of pulling by hand to hand iwth PT and PT pulling with belt and pt using bed rail to scoot fwd. This took significant amount of time d/t pt difficulty with this task. Pt then stood to EOB with mod A. He had had a BM so stood while WARD SUPERVISOR was called for assist with wiping. Pt was cleaned up with CGA standing with FWW. He then transfered to chair CGA with FWW. He stood again from chair with min A to FWW to have brief pulled up for him Gait Assessment Comments Gait Comments too fatigued M5 PT-IP Objective Assessments Start: 07/13/19 12:05 Freq: NEEDED Status: Active Protocol: Document 07/13/19 12:07 [facility] (Rec: 07/13/19 13:09 [facility] [id number]) Orientation Orientation/Cognition Level of Alertness Alert Safety Awareness Understands Safety Issues Gross Range of Motion Upper Extremity ROM Assessment Within Functional Limits Lower Extremity ROM Assessment Within Functional Limits Strength Upper Extremity Strength Assessment Within Functional Limits Lower Extremity Strength Assessment Within Functional Limits Coordination Assessment Gross Coordination Gross Coordination WNL Sensation Assessment Sensation Gross Sensation WNL Muscle Tone Muscle Tone WNL Yes M6 PT-IP Treatment Start: 07/13/19 12:05 Freq: NEEDED Status: Active Protocol: Document 07/13/19 16:12 [facility] (Rec: 07/13/19 16:22 [facility] [id number]) Physical Therapy Treatment Exercises Exercises Ankle Pumps Other Treatments Other Treatment Performed pt transfered from sitting in bedside chair to standing with FWW with CGA, he ambulated in the hallway x 200 feet with WARD SUPERVISOR following behind with wheel chair with CGA. He wished to go back to the bedside chair following gait as this was more comfortable on his back. He transfered with CGA to sit in the chair. He was reclined comfortably and call light was left within reach M7 PT-IP Assessment and Plan Start: 07/13/19 12:05 Freq: NEEDED Status: Active Protocol: Document 07/14/19 12:30 [facility] (Rec: 07/14/19 12:52 [facility] [id number]) PT Summary Assessment and Plan Summary Impairments Pain,Strength,Transfers,Gait Progress Towards Goals Slow Progress - Other Assessment Summary Pt is requiring significant assistance for all bed mobility at this time and assistance with transfers. He was fatigued by getting out of bed, standing for wiping and transfer to chair. He reqiured assistance throughout all mobility, espcially be dmobility which he heavily relied on the HOB elevation feature, and rails. Goals Bed Mobility Goal Independent Transfer Goal Standby Assistance Gait Goal Standby Assistance Gait Distance 100 Days to Meet Goals 5 Frequency of Treatment Frequency Of Treatment Twice a Day Treatment Plan Physical Therapy Treatment Plan Bed Mobility Training,Transfer Training,Gait Training, Therapeutic Exercise,Discharge Planning Recommendations To Nursing Amount of Assist Needed 1 Person Assist Discharge Recommendations PT Discharge Recommendations Home with Assistance,Home Health,SNF Rehab Other Discharge Recommendations At this time pt mobility would require him to go to a SNF rehab to improve his mobility prior to returning home. Transportation Needs at Discharge Private Vehicle
--- NOTE | 2019-07-14 14:57 | PC.NURSE ---
GI: Pt started full liq diet and has had no n/v or gi discomfort. Feels good. Did have a bm after eating. Worked w/PT and got up to the chair. Currently he is waiting for OT to come and help with a shower and to give instructions for adl's as needed. No pain today. Garcia drains yellow fluid. He has a hx of prostate problems and diff voiding in the past. Garcia remains in to gravity drainage. Cont w/poc.
--- NOTE | 2019-07-14 15:01 | CM.DPC ---
After a conversation with DESK PEN SET ASSEMBLER responsible for his discharge plan the team feels the safest discharge plan would be to SNF. I faxed PT/OT/RN notes to [facility] . I called her at [phone] to alert her of our thoughts and let her know I was faxing the above notes and successfully faxed them to .
--- NOTE | 2019-07-14 15:06 | CM.DPNOTE ---
Spoke to Lea at [facility] to ask if she could review this patient for possible admission. Explained our thoughts and that I had sent request for auth to [facility] to consider. Pt. is expected to discharge 07/14 or 07/15 and August given [phone] as follow up number.
--- NOTE | 2019-07-14 15:21 | OT.IP.TRT ---
Current Diagnoses Acute pancreatitis without necrosis or infection, unspecified (07/11/19) Occupational Therapy Treatment Note M2 OT-IP Current Condition Start: 07/13/19 17:06 Freq: Status: Active Protocol: Document 07/13/19 15:48 [facility] (Rec: 07/13/19 17:43 [facility] [id number]) Occupational Therapy Current Condition Current Condition Evaluation Date 07/13/19 Treatment Diagnosis Acute pancreatitis Diagnosis Onset Date 07/11/19 Weight Bearing Status Weight Bearing Status Weight Bear as Tolerated M3 OT- IP Subjective and Pain Start: 07/13/19 17:06 Freq: Status: Active Protocol: Document 07/14/19 15:31 [facility] (Rec: 07/14/19 15:45 [facility] [id number]) OT- Subjective Occupational Therapy Visit Type Type Progress Note Visit Start Time 14:21 Visit Stop Time 15:21 Total Visit Minutes 60 Notes Pt requesting shower. Per nursing, pt with 2 large BMs today. OT Pain Assessment Pain When Pain Assessed At Rest Pain Present Pain Present Denied Pain M4 OT- IP ADL's Start: 07/13/19 17:06 Freq: Status: Active Protocol: Document 07/14/19 15:31 [facility] (Rec: 07/14/19 15:45 [facility] [id number]) OT LVN-Epal-Hafphys Comments OT Self-Feeding Comments Not meal time OT ADL-Grooming Comments OT Grooming Comments Not performed in this session. OT ADL-Oral Care Comments Oral Care Comments Not performed in this session. OT ADL-Dressing General Eval Upper Body Dressing Ability Minimal Assistance Lower Body Dressing Ability Total Assistance Areas Needing Assistance Socks Comments OT Dressing Comments Socks and hospital gown. Pt states he has his or don put socks on him at home at his baseline. OT ADL-Toileting Comments OT Toileting Comments Not performed in this session. OT ADL-Bathing Bathing Type Bathing Type Shower General Evaluation Bathing Ability Moderate Assistance Areas Needing Assistance Retrieving/Setting Up Items, Wash/Dry Back,Wash/Dry Lower Extremities Devices Bathing Equipment Hand Held Shower Sprayer, Shower Chair with Arms,Grab Bars Comments OT Bathing Comments Pt showered with moderate assist. Pt needed help with back and LE and used the shower head to perform pericare stating that he isn't able to wipe himself anymore so he uses the shower head at home. M5 OT- IP IADL's Start: 07/13/19 17:06 Freq: Status: Active Protocol: Document 07/13/19 15:48 [facility] (Rec: 07/13/19 17:43 [facility] [id number]) OT-Instrumental Activities of Daily Living Home Safety Awareness Awareness of Need for Assistance at Home Good Awareness Ability to Problem Solve Emergency Able to Problem Solve Situations Medication Management Medication Management No Deficits Identified Money Management Money Management No Deficits Identified Meal Preparation Meal Preparation Caregiver Provides Assist Board Member Board Member Caregiver Provides Assist Driving Driving Comments Pt states has not been driving since COVID -19. M6 OT- IP Functional Cognition Start: 07/13/19 17:06 Freq: Status: Active Protocol: Document 07/14/19 15:31 [facility] (Rec: 07/14/19 15:45 [facility] [id number]) Cognitive Factors Limiting Selfcare Function Cognitive Ability Level of Alertness Alert Patient Orientation Name,Age,Birthday,Month,Date, Year,Day of Week,Place, Situation Attention Span Ability Capable of Focused Attention Ability to Follow Commands Able to Follow Multi-Step Commands Memory Description No Deficits Noted Safety Awareness Underestimates Need for Assistance Problem Solving Ability No deficits Noted OT- Vision and Hearing OT- Hearing Assessment OT- Hearing Assessment Hearing Impaired OT- Vision Assessment Visual Acuity Glasses All The Time Vision Assessment Comments Pt states has blurred vision due to hx of steel shavings in right eye. M7 OT- IP Mobility and Balance Start: 07/13/19 17:06 Freq: Status: Active Protocol: Document 07/14/19 15:31 [facility] (Rec: 07/14/19 15:45 [facility] [email or web address]) OT-Transfer Assessment Sit to and From Stand Sit to and from Stand Contact Guard Assistance Transfers Transfer Ability Contact Guard Assistance Technique Transfer Destination Chair,Shower Stall Transfer Technique Stand Step Pivot Devices Transfer Assistive Devices Gait Belt,Front Wheeled Walker Comments Mobility Comments Pt scoots forward and uses UE for sit to stand. Needs VC for use of walker in tight places like the bathroom. OT- Gait Assessment Gait Gait Assistance Required: Contact Guard Assist Assistive Devices Assistive Device Gait Belt,Front Wheeled Walker Comments Gait Ability Comments mobility just around the room. OT- Balance Assessment Sitting Balance and Reactions Static Sitting Balance Ability Fair Dynamic Sitting Balance Ability Fair M8 OT- IP Objective Assessments Start: 07/13/19 17:06 Freq: Status: Active Protocol: Document 07/13/19 15:48 [facility] (Rec: 07/13/19 17:43 [facility] [id number]) OT Gross Range of Motion Upper Extremity Range of Motion Assessment Within Functional Limits OT Strength Upper Extremity Strength Assessment Within Functional Limits M9 OT- IP Assessment and Plan Start: 07/13/19 17:06 Freq: Status: Active Protocol: Document 07/14/19 15:31 [facility] (Rec: 07/14/19 15:45 [facility] [email or web address]) OT Summary Assessment and Plan Potential Rehabilitation Potential Good Analytic Complexity at Evaluation Low Summary OT Impairments Balance,Functional Mobility, Dressing,Toileting,Bathing, Shower Transfers,Activity Tolerance Progress Towards Goals Slow Progress due to Pain,Slow Progress due to Medical Issues Assessment Summary Pt with declines to endurance and strength that are impacting his ability to care for himself. Pt participated in shower on this date and stated that he needs help with socks at home and does back pericare using the shower head as he is not able to reach. Pt will continue to benefit from therapy services and would benefit from SNF if agreeable. Goals Grooming Goal Independent Dressing Goal Independent,Occupational Health Technician,Sock Aid Toileting Goal Independent Bathing Goal Independent Toilet Transfer Goal Independent Shower Transfer Goal Independent Days to Meet Goals 5 Frequency of Treatment Frequency Of Treatment Once a Day Treatment Plan OT Treatment Plan ADL Training,Functional Mobility,Patient/Family Education,Discharge Planning Other Treatment Recommendations and Next ADLs standing Treatment Focus Discharge Recommendations OT Discharge Recommendations SNF Rehab Home Equipment Needs Pt has all equipment needs. Transportation Needs at Discharge Private Vehicle
[2019-07-14 15:32] VITALS: BP 97/62; PULSE 108; RESP 20; TEMP 36.1; O2SAT 95
[2019-07-14] MEDS: CEFTRIAXONE 2 GM/50 ML FROZ.PIGGY IV (15:40)
--- NOTE | 2019-07-14 15:45 | PT-IP ANOTE ---
Pt up in reclined chair with nursing, declined PT treatment this afternoon, stated is too tired to do PT this afternoon, recently took a shower with OT. Pt suggested to come back tomorrow am and will be able to do more.
--- NOTE | 2019-07-14 16:03 | CM.DPNOTE ---
DCP Cont Reviewed chart, then met w/pt to review DCP. Pt remains hopeful he will be able to DC home. He explains to this CAFE WORKER both his , who has dementia, and his son, who is disabled, need him for activities of daily living. This CAFE WORKER expresses concern about the safety of a home plan ? Patient is hesitant to agree w/this suggestion but is agreeable to contact w/ [facility] to ask for SNF auth and contact w/[facility] for potential referral/admission upon DC Patient reiterates he hopes to be strong enough for return home, agreeable to home health Spoke w/ CYN, OT, she feels SNF would be the safest dispo but more realistically, patient will DC back home w/ , ARTIFICIAL INSEMINATION TECHNICIAN should be included, CJ suggests contact w/pt's oldest son, Don (?) contact not in chart, need to obtain from patient Following closely for coordination of safest dispo available to patient, and one patient is agreeable to. Spoke w/August at [facility], she is not certain they can secure Bariatric bed, she knows DC planning team still awaiting determination from [facility], will be following closely SILVERIO Mari
--- NOTE | 2019-07-14 16:10 | P.PN_ITS ---
Subjective Subjective Date Patient Seen: 07/14/19 Time Patient Seen: 16:10 Interval history: He is seen here in his room today to follow-up the acute pancreatitis and E coli bacteremia. The urine culture is pansensitive so the antibiotics will be narrowed down to ceftriaxone. He says he is feeling much better after having large bowel movements this afternoon. He is tolerating full liquids and says that he has not had any abdominal pain today. He tells me this is his 3rd time with E coli sepsis. Exam Vital Signs (past 8 hours): - 07/14/19 12:00 07/14/19 15:32 Temperature 97.5 F L 97.0 F L Pulse Rate 92 H 108 H Respiratory Rate 16 20 Blood Pressure 123/68 97/62 Pulse Oximetry 94 95 Oxygen Delivery Method Room Air Oxygen Flow Rate 0 Narrative Exam Narrative: Alert and oriented x3. No apparent distress. He is sitting in his chair, looking quite large and having a difficult time moving as a result. Heart is regular rate and rhythm without murmur Lungs are clear to auscultation bilaterally Abdomen is distended with obesity, nontender, no ascites, no organomegaly, bowel sounds active. Extremities have no ankle edema Objective Labs Result Diagrams: 07/13/19 05:15 07/14/19 04:55 Labs: Laboratory Results - last 24 hr 07/14/19 07/14/19 04:55 04:55 Sodium 135 L Potassium 4.0 Chloride 104 Carbon Dioxide 29 BUN 25 H Creatinine 1.37 H Estimated GFR 49.6 L BUN/Creatinine Ratio 18.2 Glucose 127 H Calcium 8.2 L Total Bilirubin 0.8 AST 91 H ALT 114 H Alkaline Phosphatase 179 H Total Protein 6.2 L Albumin 3.0 L Globulin 3.2 Albumin/Globulin Ratio 0.9 L Procalcitonin 30.47 H Assessment & Plan Assessment & Plan narrative: Marty Heard is an 83-year-old male with past medical history of type 2 diabetes, hypothyroidism, atrial fibrillation on Coumadin, hypertension, CKD III, and chronic low back pain who was brought in by EMS reporting that he had been in bed with increasing weakness for the past week. He was found to have a severely elevated blood glucose, and appears dehydrated on exam. His CT shows evidence of pancreatitis as does his elevated lipase, however the patient does not complain of abdominal pain although he does endorse some epigastric pain with nausea and vomiting last night. He is admitted to Medicine for likely pancreatitis and hyperglycemic hyperosmolar syndrome. 1. Acute pancreatitis, present on admission -CT abdomen on admission showed fat stranding around the pancreatic head and surrounding duodenal inflammation as well most consistent with pancreatitis. -His lipase is elevated at 9330 and he did have complaints of abdominal pain and nausea night prior to admission, although none currently -patient has a gallbladder resection, which was done apparently in July of last y ear, when he was transferred to [facility]. -abdomen MRI noted inflammatory process adjacent to pancreatic head, centered on gas-filled structure at medial border of descending duodenum. On CT the gas- filled structure appeared extra luminal consistent with inflamed duodenal diverticulum verses medial peptic ulcer. -elevated bilirubin and LFTs, see below -received initial IV hydration, now IV hep-locked -continue full liquid diet -triglycerides were normal -Repeat Lipase 07/14 2. Possible duodenal diverticulitis, present on admission -this was suggested on abdominal MRI and perhaps causing secondary pancreatitis and biliary obstruction -change from Meropenem to Ceftriaxone which is treating E coli bacteremia -consider surgical consult for EGD if patient not improving 3. E coli bacteremia, present on admission -source unclear, differential diagnosis includes infected duodenal diverticula vs biliary source versus acute/chronic prostatitis as patient had urinary retention on admission, -urinalysis microscopic was normal -WBC trending down and normalized -procalcitonin 34 on admission, subsequent procalcitonin 73, last procalcitonin 46 -repeat procalcitonin in a.m. -pansensitive to changed to Ceftriaxone on 07/13 -He is reporting 3 prior episodes of E.coli infection. Consider ID consultation as an outpatient. 4. Type 2 diabetes mellitus, with HHS, present on admission -patient presented with a glucose level near 600, and appeared clinically dehydrated. Ketones were only minimally elevated but there is no anion gap, and no acidosis. This is most consistent with HHS. -insulin drip started on admission and discontinued -glucose trending down with increased insulin -A1c 9.9 indicates poor long-term control -increased Lantus to 25 units b.i.d., with high-dose sliding scale, and 7 units at mealtime. Continue to adjust as necessary. -Patient's home regimen consist of 35 units in the morning, and 30 units in the evening of 70/30 mix. 5. Chronic atrial fibrillation -rate controlled, continue metoprolol ER 100 mg q.d. -INR therapeutic on warfarin, continue 5 mg q.p.m. and monitor Q 2 days -TTE mild LVH, LVEF 60-65% 6. Chronic kidney disease, chronic stage III, present on admission -completed IV fluids, acute portion likely secondary to relative dehydration f rom HHS or possibly low-flow state as noted below. -admit creatinine 1.87, current creatinine 1.37 improving, baseline creatinine 1.6-1.8 7. Chronic low back pain, -resume patient's tramadol 100 mg t.i.d. as needed -PT/OT consult 8. Elevated liver enzymes -patient presented with an elevated bilirubin of 2.9, AST 474, ALT 265, and alk- phos 252. His INR was elevated at 2.4 but he is on Coumadin. -baseline LFTs in 2019 were normal -etiology unclear but likely biliary stasis or temporary obstruction from inflamed pancreatic head or inflamed duodenal -bilirubin and LFTs are clearly improving. Bilirubin 0.8 on . Acute urinary retention, present on admission -Garcia catheter placed in the ED and 1400 cc urine drained -started patient on tamsulosin 0.4 mg q.d. -patient has history of BPH surgery x3 and was told his biopsy also showed prostate CA, he does endorse chronic urinary frequency and urgency at home, received notice to see his urologist and needs to schedule appointment when able -patient wants to wait until tomorrow to remove Garcia Code: DNR as specified by patient's POLST form. Surrogate decision maker is listed as his son. DVT: On Coumadin, INR therapeutic Quality VTE Deep Vein Thrombosis/Pulmonary Embolism Present on Admission: No
[2019-07-14] MEDS: WARFARIN 5 MG TABLET PO (17:06)
--- NOTE | 2019-07-14 17:29 | PC.NURSE ---
Addendum entered by Celine Chery R.N. 07/14/19 18:14: Assisted back into bed by PEER TUTOR. BL calf scd's replaced. Resting quietly supine in bed with eyes closed. No signs of distress or discomfort. Original Note: Pt awake, alert sitting up in recliner with BL LE's elevated @ beginning of shift. Denies pain or GI upset or discomfort. States several bowel movements today. Reports arias catheter out tomorrow with possible discharge to home. P.T. in to see patient and pt refuses to ambulate or return to bed. IV antibiotic infused to right wrist iv site without difficulty. Feet BL cool to touch with purple hue R > L. Able to doppler pedal pulses successfully BL. Pt admits to numbness to toes BL as baseline as well as numbness to left hand fourth and fifth digits. Set up for dinner with clear/full liquids. Arias to gravity. Call light available.
[2019-07-14 20:26] VITALS: BP 110/71; PULSE 99; RESP 18; TEMP 36.6; O2SAT 96
[2019-07-15] VITALS (14 sets, daily range): BP systolic 83–130; BP diastolic 47–78; PULSE 20–104; RESP 20–21; TEMP 36.2–36.9; O2SAT 93–98
[2019-07-15] MEDS: LEVOTHYROXINE 50 MCG TABLET PO (06:08)
[2019-07-15 06:24] LABS: Add Manual Diff / Slide Review NO; Basophils Absolute Auto 0 /uL (0-100); Basophils Percent Auto 0.5 % (0-2); Eosinophils Absolute Auto 300 /uL (0-450); Hematocrit 33.2 % (41-53); Hemoglobin 11.2 g/dL (13.5-17.5); Lymphocytes Absolute Auto 1500 /uL (1100-4500); Lymphocytes Percent Auto 24.3 % (25-40); Mean Corpuscular HGB Conc 33.5 % (30-36); Mean Corpuscular Hemoglobin 29.8 PG (26-34); Mean Corpuscular Volume 88.8 fL (80-100); Monocytes Absolute Auto 500 /uL (0-900); Monocytes Percent Auto 8.3 % (3-14); Neutrophils Absolute Auto 3800 /uL (1500-7000); Neutrophils Percent Auto 61.9 % (50-75); Platelet Count 148 X10^3/uL (150-400); Red Blood Cell Count 3.74 X10^6/uL (4.5-5.9); Red Cell Distribution Width 14.6 % (11.6-14.8); White Blood Cell Count 6.2 X10^3/uL (4.5-11.0)
[2019-07-15 06:27] LABS: Alanine Aminotransferase 91 IU/L (<50); Albumin Globulin Ratio 0.9 (1.0-2.8); Alkaline Phosphatase 179 U/L (38-126); Aspartate Aminotransferase 75 IU/L (17-59); BUN Creatinine Ratio 16.5 (6-22); Bilirubin Total 0.6 mg/dL (0.2-1.3); Blood Urea Nitrogen 22 mg/dL (9-20); Calcium 8.6 mg/dL (8.4-10.2); Carbon Dioxide 30 mmol/L (22-32); Chloride 107 mmol/L (98-107); Estimated Glomerular Filt Rate 51.3 mL/min (>60); Globulin 3.2 g/dL (1.7-4.1); Glucose 142 mg/dL (80-110); HEMOLYSIS < 15 (0-50); Potassium 4.4 mmol/L (3.4-5.1); Sodium 137 mmol/L (137-145); Total Protein 6.2 g/dL (6.3-8.2)
[2019-07-15 06:43] LABS: Lipase 2322 U/L (23-300)
[2019-07-15] MEDS: INSULIN ASPART 100 UNIT/ML INSULN PEN 7 UNIT SUBCUT ×3 (08:11→17:31)
[2019-07-15] MEDS: INSULIN ASPART 100 UNIT/ML INSULN PEN SUBCUT ×2 (08:11→11:40)
[2019-07-15] MEDS: INSULIN GLARGINE 100 UNIT/ML 3ML PEN 25 UNIT SUBCUT ×2 (08:14→21:09)
[2019-07-15] MEDS: DOCUSATE 100 MG CAPSULE PO (08:30)
[2019-07-15] MEDS: FERROUS SULFATE 325 MG TABLET PO (08:30)
[2019-07-15] MEDS: METOPROLOL ER 25 MG TABLET 100 MG PO (08:30)
[2019-07-15] MEDS: TAMSULOSIN 0.4 MG CAPSULE PO (08:30)
[2019-07-15] MEDS: SODIUM CHLORIDE 0.9% FLUSH 10 ML IV ×2 (08:31→21:09)
[2019-07-15] MEDS: TRAMADOL 50 MG TABLET 100 MG PO ×2 (08:41→21:07)
--- NOTE | 2019-07-15 09:28 | PT.IPTN ---
Current Diagnoses Acute pancreatitis without necrosis or infection, unspecified (07/11/19) Physical Therapy Treatment Note M2 PT-IP Current Condition Start: 07/13/19 12:05 Freq: NEEDED Status: Active Protocol: Document 07/13/19 12:07 [facility] (Rec: 07/13/19 13:09 [facility] [id number]) Physical Therapy Current Condition Current Condition Evaluation Date 07/13/19 Treatment Diagnosis increasing weakness, back pain ,sob,hyperglycemia Onset Date 07/07/19 Weight Bearing Status Weight Bearing Status Full Weight Bearing M3 PT-IP Subjective Start: 07/13/19 12:05 Freq: NEEDED Status: Active Protocol: Document 07/15/19 08:40 SP (Rec: 07/15/19 13:58 SP [id number]) Subjective Physical Therapy Visit Type Type Treatment Note Visit Start Time 08:40 Visit Stop Time 09:28 Total Visit Minutes 48 Number of REFUELING RAMP SUPERVISOR Visits 1 Physical Therapy Visit Comments Patient Comments Pt agreeable to PT this am. Patient Goals Goals: to get out of bed and walk around better, return home with his and son. Therapy Pain Assessment Pain When Pain Assessed During Mobility Pain Present Pain Present Pain Reported Location Back Intensity 4 Pain Management Techniques Re-positioning,Timing of Activity with Medications M4 PT-IP Mobility and Gait Start: 07/13/19 12:05 Freq: NEEDED Status: Active Protocol: Document 07/15/19 08:40 SP (Rec: 07/15/19 13:58 SP [id number]) PT-Bed Mobility Assessment Rolling Type of Rolling Roll to Left Level of Assist Standby Assistance Supine to Sit Supine to Sit Minimal Assistance,Head of Bed Elevated,Bedrails Scooting Scooting to Edge of Bed Minimal Assistance PT-Transfer Assessment Sit to and From Stand Sit to and from Stand Minimal Assistance,1 Person Assistance,Use of Upper Extremities Equipment Transfer Assistive Device Gait Belt,Front Wheeled Walker Orthotic/Prosthetic Devices or Brace: No Transfers Transfer Destination Chair,Toilet Transfer Technique Stand Step Pivot Transfer Ability Level of Assist Minimal Assistance Comments Mobility Comments Pt was laying slight L sidelying with pillows support behind pelvis to assimulate home while in bed when arrived . Pt was able to roll to L using bed rails, get BLe over and off EOB himself. Pt unable to transition trunk L sidelying to sitting with HOB flat, required HOB elevated 35 % and braced walker below bed rail per patient request to assimulate bed rail at home to get to sitting, patient required increased time to L UE WB on bed for trunk righting, CGA and was able to reach for bed handle near legs as uses stated pole at foot of bed for sitting up support. Pt required Min A to scoot forward to EOB to get BLE supported on floor. Sit to stand from EOB Min A to Wt shift forward and stabillze in standing for safety using FWW . Pt requested to use bathroom , REFUELING RAMP SUPERVISOR noticed patient had BM in bed once in standing. Ambulation EOB to toilet approx 8 ft using FWW CGA, Min A to slowly grade seated onto toilet with LUE use of grab bar for self support. REFUELING RAMP SUPERVISOR called chief nursing officer for assist with bedding. Sit to stand from toilet Min A while using grab bar LUE and downward pressure RUE on FWW. Pt was unable complete self hygiene, REFUELING RAMP SUPERVISOR provided total assist for task completion while providing CGA in standing approx 6 min. Pt walked to chair approx 6 ft, requested seated rest break in chair with CGA- 10 % A to slow descend in to chair prior to gait secondary to decreased acitivty tolerance. Pt agreed to donning pull up brief for gait for BM safety, required total assist for completion. Sit to stand from chair CGA using FWW for support and was able to ambulate 3-4 ft before stating needing to back up to chair due to being to tired to walk further, CGA backign up and cued for slow descent sit into chair with proper hand placement. Gait Assessment Gait Gait Assistance Required: Contact Guard Assist Distance (Feet) 8 Able to Maintain Weight Bearing Status Yes During Gait Assistive Devices Assistive Device Gait Belt,Front Wheeled Walker Orthotic/Prosthetic Devices or Brace: No Gait Deviations General Gait Pattern Decreased Stride Length, Decreased Feet Clearance, Flexed Trunk,Wide Based Gait Factors Limiting Gait Function Factors Limiting Gait Function Decreased Activity Tolerance, Decreased Strength,Pain Comments Gait Comments see mobility comments. Pt continued decreased strength and activity tolerance in standing using FWW cGA. Stair Climbing Assessment Comments Stair Climbing Comments Unable to assess secondary to decreased activity tolerance in standing and gait. Pt reports has 3 steps bed to bathroom with rails on both side for support, will need to assess prior to DC. PT-Balance Assessment Sitting Balance and Reactions Static Sitting Balance Ability Good Dynamic Sitting Balance Ability Good Standing Balance and Reactions Static Standing Balance Ability Fair Dynamic Standing Balance Ability Fair Device Used FWW M5 PT-IP Objective Assessments Start: 07/13/19 12:05 Freq: NEEDED Status: Active Protocol: Document 07/13/19 12:07 [facility] (Rec: 07/13/19 13:09 [facility] [id number]) Orientation Orientation/Cognition Level of Alertness Alert Safety Awareness Understands Safety Issues Gross Range of Motion Upper Extremity ROM Assessment Within Functional Limits Lower Extremity ROM Assessment Within Functional Limits Strength Upper Extremity Strength Assessment Within Functional Limits Lower Extremity Strength Assessment Within Functional Limits Coordination Assessment Gross Coordination Gross Coordination WNL Sensation Assessment Sensation Gross Sensation WNL Muscle Tone Muscle Tone WNL Yes M6 PT-IP Treatment Start: 07/13/19 12:05 Freq: NEEDED Status: Active Protocol: Document 07/13/19 16:12 [facility] (Rec: 07/13/19 16:22 [facility] [id number]) Physical Therapy Treatment Exercises Exercises Ankle Pumps Other Treatments Other Treatment Performed pt transfered from sitting in bedside chair to standing with FWW with CGA, he ambulated in the hallway x 200 feet with PHOTOGRAVURE PRESS OPERATOR following behind with wheel chair with CGA. He wished to go back to the bedside chair following gait as this was more comfortable on his back. He transfered with CGA to sit in the chair. He was reclined comfortably and call light was left within reach M7 PT-IP Assessment and Plan Start: 07/13/19 12:05 Freq: NEEDED Status: Active Protocol: Document 07/15/19 08:40 SP (Rec: 07/15/19 13:58 SP [id number]) PT Summary Assessment and Plan Potential Rehabilitation Potential Good Status of Condition at Evaluation Evolving Summary Impairments Pain,Strength,Transfers,Gait Progress Towards Goals Slow Progress - Other Assessment Summary Pt is requiring bed positioning changes and rail supports to complete bed mobiltiy, and assistance for scoot to EOB mobility at this time and assistance with transfers. He was fatigued by getting out of bed, standing for wiping and transfer to chair. He reqiured assistance throughout all mobility, especially bed mobility relied on the HOB elevation feature, and rails. Goals Bed Mobility Goal Independent Transfer Goal Standby Assistance Gait Goal Standby Assistance Gait Distance 100 Days to Meet Goals 5 Frequency of Treatment Frequency Of Treatment Twice a Day Treatment Plan Physical Therapy Treatment Plan Bed Mobility Training,Transfer Training,Gait Training, Therapeutic Exercise,Discharge Planning Other Recommendations and Next Treatment bed mobility, transfers, gait, Focus 3 stairs with BHR assessment. Recommendations To Nursing Amount of Assist Needed 1 Person Assist Discharge Recommendations PT Discharge Recommendations Home with Assistance,Home Health,SNF Rehab Other Discharge Recommendations At this time pt mobility would require him to go to a SNF rehab to improve his mobility prior to returning home. Transportation Needs at Discharge Private Vehicle
--- NOTE | 2019-07-15 11:33 | P.PN_ITS ---
Subjective Subjective Date Patient Seen: 07/15/19 Interval history: He is seen in his room here today to follow-up his E coli bacteremia and pancreatitis. He is very talkative. He is unable to answer direct questions without long stories that quickly become tangential and somewhat tendentious. He says that he has been out in the hallway walking but his PT reports that he has had to be lifted to transfer and that at baseline he has to use a cane at home along with many rails on the craig. He is quite hard of hearing. His AST is 75 with an ALT of 91 and alk-phos of 179. The lipase is down to 2003 and 22 and the creatinine is 1.33 with a hemoglobin level of 0.2. He admits that he is weaker than baseline and he explains his home modifications and system in great detail. TM is 99.7 with a HR of 129. Exam Vital Signs (past 8 hours): - 07/15/19 05:05 07/15/19 08:00 07/15/19 08:30 Temperature 97.5 F L 98.2 F Pulse Rate 86 87 87 Respiratory Rate 20 20 Blood Pressure 130/78 120/74 120/74 Pulse Oximetry 98 98 07/15/19 10:26 07/15/19 11:30 Temperature 98.1 F Pulse Rate 97 H 88 Respiratory Rate 21 Blood Pressure 126/59 L 92/58 L Pulse Oximetry 97 Oxygen Delivery Method Room Air Oxygen Flow Rate 0 Narrative Exam Narrative: Alert and oriented x3. Very talkative and tangential. Heart is regular rate and rhythm without murmur Lungs are clear to auscultation bilaterally Abdomen is soft, obese, nontender, no organomegaly. Extremities have no ankle edema Objective Labs Result Diagrams: 07/15/19 05:35 07/15/19 05:35 Labs: Laboratory Results - last 24 hr 07/15/19 07/15/19 07/15/19 05:35 05:35 05:35 WBC 6.2 RBC 3.74 L Hgb 11.2 L Hct 33.2 L MCV 88.8 MCH 29.8 MCHC 33.5 RDW 14.6 Plt Count 148 L Neut % (Auto) 61.9 Lymph % (Auto) 24.3 L Pierce % (Auto) 8.3 Eos % (Auto) 5.0 H Baso % (Auto) 0.5 Neut # (Auto) 3800 Lymph # (Auto) 1500 Pierce # (Auto) 500 Eos # (Auto) 300 Baso # (Auto) 0 Sodium 137 Potassium 4.4 Chloride 107 Carbon Dioxide 30 BUN 22 H Creatinine 1.33 H Estimated GFR 51.3 L BUN/Creatinine Ratio 16.5 Glucose 142 H Calcium 8.6 Total Bilirubin 0.6 AST 75 H ALT 91 H Alkaline Phosphatase 179 H Total Protein 6.2 L Albumin 3.0 L Globulin 3.2 Albumin/Globulin Ratio 0.9 L Lipase 2322 H D Assessment & Plan Assessment & Plan narrative: Marty Heard is an 83-year-old male with past medical history of type 2 diabetes, hypothyroidism, atrial fibrillation on Coumadin, hypertension, CKD III, and chronic low back pain who was brought in by EMS reporting that he had been in bed with increasing weakness for the past week. He was found to have a severely elevated blood glucose, and appears dehydrated on exam. His CT shows evidence of pancreatitis as does his elevated lipase, however the patient does not complain of abdominal pain although he does endorse some epigastric pain wit h nausea and vomiting last night. He is admitted for apparent pancreatitis and hyperglycemic hyperosmolar syndrome. 1. Acute pancreatitis, present on admission -CT abdomen on admission showed fat stranding around the pancreatic head and surrounding duodenal inflammation as well most consistent with pancreatitis. -His lipase is elevated at 9330 and he did have complaints of abdominal pain and nausea night prior to admission, although none currently -patient has a gallbladder resection, which was done apparently in July of last year, when he was transferred to [facility]. -abdomen MRI noted inflammatory process adjacent to pancreatic head, centered on gas-filled structure at medial border of descending duodenum. On CT the gas- filled structure appeared extra luminal consistent with inflamed duodenal diverticulum verses medial peptic ulcer. -elevated bilirubin and LFTs, see below -received initial IV hydration, now IV hep-locked -advance to regular low fat diet 07/14 -triglycerides were normal -Repeat Lipase 07/14 is 2,322, follow up on 07/15 2. Possible duodenal diverticulitis, present on admission -this was suggested on abdominal MRI and perhaps causing secondary pancreatitis and biliary obstruction -changed 07/13 from Meropenem to Ceftriaxone which is treating E coli bacteremia -consider surgical consult for EGD if patient not improving 3. E coli bacteremia, present on admission -source unclear, differential diagnosis includes infected duodenal diverticula vs biliary source versus acute/chronic prostatitis as patient had urinary retention on admission, -urinalysis microscopic was normal -WBC trending down and normalized -procalcitonin 34 on admission, subsequent procalcitonin 73, last procalcitonin 30 07/13. -repeat procalcitonin in a.m. 07/15 -pansensitive so changed to Ceftriaxone on 07/13 -He is reporting 3 prior episodes of E.coli infection. Consider ID consultation as an outpatient. 4. Type 2 diabetes mellitus, with HHS, present on admission -patient presented with a glucose level near 600, and appeared clinically dehydrated. Ketones were only minimally elevated but there is no anion gap, and no acidosis. This is most consistent with HHS. -insulin drip started on admission and discontinued -glucose trending down with increased insulin -A1c 9.9 indicates poor long-term control -increased Lantus to 25 units b.i.d., with high-dose sliding scale, and 7 units at mealtime. Continue to adjust as necessary. -Patient's home regimen consist of 35 units in the morning, and 30 units in the evening of 70/30 mix. 5. Chronic atrial fibrillation -rate controlled, continue metoprolol ER 100 mg q.d. -INR therapeutic on warfarin, continue 5 mg q.p.m. and repeat 07/15 -TTE mild LVH, LVEF 60-65% 6. Chronic kidney disease, chronic stage III, present on admission -completed IV fluids, acute portion likely secondary to relative dehydration from HHS or possibly low-flow state as noted below. -admit creatinine 1.87, current creatinine 1.33 improving, baseline creatinine 1.6-1.8 7. Chronic low back pain, -resume patient's tramadol 100 mg t.i.d. as needed -PT/OT consult for mobilization -His baseline is apparently quite limited mobility 8. Elevated liver enzymes -patient presented with an elevated bilirubin of 2.9, AST 474, ALT 265, and alk- phos 252. His INR was elevated at 2.4 but he is on Coumadin. -baseline LFTs in 2019 were normal -etiology unclear but likely biliary stasis or temporary obstruction from inflamed pancreatic head or inflamed duodenal -bilirubin and LFTs are clearly improving. Bilirubin 0.8 on 07/13. 9. Acute urinary retention, present on admission -Garcia catheter placed in the ED and 1400 cc urine drained -started patient on tamsulosin 0.4 mg q.d. -patient has history of BPH surgery x3 and was told his biopsy also showed prostate CA, he does endorse chronic urinary frequency and urgency at home, received notice to see his urologist and needs to schedule appointment when able -patient wants to wait to remove Garcia 10. Disposition -he really wants to go home and points out that his has dementia and his son has limited mental capacity so he feels very responsible for them. At the same time he agrees with physical therapy that his mobility is extremely limited right now. I pressed him for quite a long time about whether he would be willing to go for rehab to a senior care facility and he ultimately conceded that that may be needed. We will see how quickly he responds and whether he is stronger in the next 2-4 days when stable for discharge after completing IV antibiotics for bacteremia. Code: DNR as specified by patient's POLST form. Surrogate decision maker is listed as his son. DVT: On Coumadin, INR therapeutic Quality VTE Deep Vein Thrombosis/Pulmonary Embolism Present on Admission: No
--- NOTE | 2019-07-15 13:28 | OT.IP.TRT ---
Current Diagnoses Acute pancreatitis without necrosis or infection, unspecified (07/11/19) Occupational Therapy Treatment Note M2 OT-IP Current Condition Start: 07/13/19 17:06 Freq: Status: Active Protocol: Document 07/13/19 15:48 [facility] (Rec: 07/13/19 17:43 [facility] [id number]) Occupational Therapy Current Condition Current Condition Evaluation Date 07/13/19 Treatment Diagnosis Acute pancreatitis Diagnosis Onset Date 07/11/19 Weight Bearing Status Weight Bearing Status Weight Bear as Tolerated M3 OT- IP Subjective and Pain Start: 07/13/19 17:06 Freq: Status: Active Protocol: Document 07/15/19 13:39 [facility] (Rec: 07/15/19 13:49 [facility] [email or web address]) OT- Subjective Occupational Therapy Visit Type Type Progress Note Visit Start Time 12:50 Visit Stop Time 13:28 Total Visit Minutes 38 Notes Pt states he recently got back to the chair and nursing said his BP was low. Occupational Therapy Visit Comments Patient Comments Nancy says she is ok with P.T. coming to the house but she doesn't want all the home health people. OT Pain Assessment Pain When Pain Assessed At Rest Pain Present Pain Present Denied Pain M4 OT- IP ADL's Start: 07/13/19 17:06 Freq: Status: Active Protocol: Document 07/15/19 13:39 [facility] (Rec: 07/15/19 13:49 [facility] [id number]) OT LCW-Atri-Fkdwglc Comments OT Self-Feeding Comments Pt had just finished lunch OT ADL-Grooming General Evaluation Grooming Ability Standby Assistance Areas Needing Assistance Retrieving/Set-up of Grooming Items,Combing/Brushing Hair, Face Washing Comments OT Grooming Comments standing at sink OT ADL-Oral Care Comments Oral Care Comments not performed, pt states he doesn't have any teeth in. OT ADL-Dressing Comments OT Dressing Comments not performed in this session. OT ADL-Toileting Comments OT Toileting Comments Pt just returned recently from bathroom with nursing. No needs at this time. OT ADL-Bathing Comments OT Bathing Comments Not performed M5 OT- IP IADL's Start: 07/13/19 17:06 Freq: Status: Active Protocol: Document 07/13/19 15:48 [facility] (Rec: 07/13/19 17:43 [facility] [id number]) OT-Instrumental Activities of Daily Living Home Safety Awareness Awareness of Need for Assistance at Home Good Awareness Ability to Problem Solve Emergency Able to Problem Solve Situations Medication Management Medication Management No Deficits Identified Money Management Money Management No Deficits Identified Meal Preparation Meal Preparation Caregiver Provides Assist Call Taker Call Taker Caregiver Provides Assist Driving Driving Comments Pt states has not been driving since COVID -19. M6 OT- IP Functional Cognition Start: 07/13/19 17:06 Freq: Status: Active Protocol: Document 07/14/19 15:31 [facility] (Rec: 07/14/19 15:45 [facility] [email or web address]) Cognitive Factors Limiting Selfcare Function Cognitive Ability Level of Alertness Alert Patient Orientation Name,Age,Birthday,Month,Date, Year,Day of Week,Place, Situation Attention Span Ability Capable of Focused Attention Ability to Follow Commands Able to Follow Multi-Step Commands Memory Description No Deficits Noted Safety Awareness Underestimates Need for Assistance Problem Solving Ability No deficits Noted OT- Vision and Hearing OT- Hearing Assessment OT- Hearing Assessment Hearing Impaired OT- Vision Assessment Visual Acuity Glasses All The Time Vision Assessment Comments Pt states has blurred vision due to hx of steel shavings in right eye. M7 OT- IP Mobility and Balance Start: 07/13/19 17:06 Freq: Status: Active Protocol: Document 07/15/19 13:39 [facility] (Rec: 07/15/19 13:49 [facility] [id number]) OT-Transfer Assessment Sit to and From Stand Sit to and from Stand Contact Guard Assistance Transfers Transfer Ability Contact Guard Assistance Technique Transfer Destination Chair Transfer Technique Stand Step Pivot Devices Transfer Assistive Devices Gait Belt,Front Wheeled Walker Comments Mobility Comments Pt was able to perform sit to stand from chair without assist, stood for BPs, then ambulated to sink and stood for ADLs standing. Chair brought to him d/t fatigue. M8 OT- IP Objective Assessments Start: 07/13/19 17:06 Freq: Status: Active Protocol: Document 07/13/19 15:48 [facility] (Rec: 07/13/19 17:43 [facility] [id number]) OT Gross Range of Motion Upper Extremity Range of Motion Assessment Within Functional Limits OT Strength Upper Extremity Strength Assessment Within Functional Limits M9 OT- IP Assessment and Plan Start: 07/13/19 17:06 Freq: Status: Active Protocol: Document 07/15/19 13:39 [facility] (Rec: 07/15/19 13:49 [facility] [email or web address]) OT Summary Assessment and Plan Potential Rehabilitation Potential Good Analytic Complexity at Evaluation Low Summary OT Impairments Balance,Functional Mobility, Dressing,Toileting,Bathing, Shower Transfers,Activity Tolerance Progress Towards Goals Slow Progress due to Pain,Slow Progress due to Medical Issues Assessment Summary Pt with delines to endurance and strength that are impacting his ability to care for himself. Pt participated in ADLs standing at sink on this date. Pt with recent low BP so BP checked prior to activity as follows: sittin/61 Standing ~1 min: 100/59 Standing ~3 minutes 117/61 seated after activity: 132/62 Pt will continue to benefot from therapy services and would benefit from SNF if agreeable. Goals Grooming Goal Independent Dressing Goal Independent,Seismic Computer,Sock Aid Toileting Goal Independent Bathing Goal Independent Toilet Transfer Goal Independent Shower Transfer Goal Independent Days to Meet Goals 5 Frequency of Treatment Frequency Of Treatment Once a Day Treatment Plan OT Treatment Plan ADL Training,Functional Mobility,Patient/Family Education,Discharge Planning Other Treatment Recommendations and Next ADLs standing and enduracne, Treatment Focus shower Discharge Recommendations OT Discharge Recommendations SNF Rehab Home Equipment Needs Pt has all equipment needs. Transportation Needs at Discharge Private Vehicle
--- NOTE | 2019-07-15 13:34 | PC.NURSE ---
Day shift note: Awake, alert, and pleasant. Up OOB to chair with PT for meals. Tolerating full liquid diet, no nausea, or abdo pain. C/O LBP, which is chronic, medicated with Tramadol with adequate relief. BLE edema, L > R. SCDs in place while in bed. BP decreased at 1130 to ghi 90's systolic, steadily increased to 132/62 at 1315, asymptomatic. Refusing to remove Garcia Cath, discussed importance of removal, verbalized understanding. Vicki Lomas aware of refusal. States will call this RN when ready. Calls appropriately for staff assistance, high fall risks precautions maintained.
--- NOTE | 2019-07-15 15:25 | PT.IPTN ---
Current Diagnoses Acute pancreatitis without necrosis or infection, unspecified (07/11/19) Physical Therapy Treatment Note M2 PT-IP Current Condition Start: 07/13/19 12:05 Freq: NEEDED Status: Active Protocol: Document 07/13/19 12:07 [facility] (Rec: 07/13/19 13:09 [facility] [id number]) Physical Therapy Current Condition Current Condition Evaluation Date 07/13/19 Treatment Diagnosis increasing weakness, back pain ,sob,hyperglycemia Onset Date 07/07/19 Weight Bearing Status Weight Bearing Status Full Weight Bearing M3 PT-IP Subjective Start: 07/13/19 12:05 Freq: NEEDED Status: Active Protocol: Document 07/15/19 14:43 SP (Rec: 07/15/19 18:12 SP [id number]) Subjective Physical Therapy Visit Type Type Treatment Note Visit Start Time 14:43 Visit Stop Time 15:25 Total Visit Minutes 42 Number of MATERIAL HANDLER 1ST SHIFT Visits 2 Physical Therapy Visit Comments Patient Comments Pt agreeable to PT. Patient Goals To walk further and try stairs , wants to return home with family with understanding will be unable to physically assist him. Therapy Pain Assessment Pain When Pain Assessed During Mobility Pain Present Pain Present Pain Reported Location Back Intensity 4 Scale Used LBP, R anterior pelvis after stairs Description Cramping,Spasm Pain Management Techniques Re-positioning,Timing of Activity with Medications M4 PT-IP Mobility and Gait Start: 07/13/19 12:05 Freq: NEEDED Status: Active Protocol: Document 07/15/19 14:43 SP (Rec: 07/15/19 18:12 SP [id number]) PT-Transfer Assessment Sit to and From Stand Sit to and from Stand Contact Guard Assistance,Use of Upper Extremities Equipment Transfer Assistive Device Gait Belt,Front Wheeled Walker Orthotic/Prosthetic Devices or Brace: No Transfers Transfer Destination Chair,Wheelchair Transfer Technique pt ambulated using FWW Transfer Ability Level of Assist Use of Upper Extremities Comments Mobility Comments Pt was able complete sit to stand from chair and w/c CGA and good hand placement and request if w/c locked prior to sitting. Pt was able to ambulate chair to w/c in hallway approx 15 ft CGA, slow pacing and decreased foot clearance and step length, moderate BUE WB on FWW. MATERIAL HANDLER 1ST SHIFT pushed patient to down to stairs. Pt able to complete 3 stairs using BHR step to patterning leadign LLE 10% A initially 1st step then CGA rest of ascend/descending to assimulate 3 steps and HRs at bed side assimulation, MATERIAL HANDLER 1ST SHIFT managed catheter. Pt was able to walk further in hallway approx 115 ft after stair mgt but not as far and complete 2 days ago, secondary to decreased strength and activitiy tolerance, CGA and w /c follow required and needed sitting rest after 115 ft distance. Pt was able to walk from door to chair using FWW approx 15 ft, cued upright posture and step over step with increased foot clearance around end of bed while patient stated I think I can walk to my chair without this walker but maybe I shouldn't, I will continue using the walker for now. Pt was ableto pivot and slow grade sit into chair CGA with proper hand placment. Pt stated I know I haven't been able to get around as good as did a couple of days ago but this afternoon was better and hopefully tomorrow can walk further and do stairs again. Pt declined reassessing bed mobility again, which is a challenge and needs more time and assistance to complete. Pt was seated in chair with call light and all needs inreach when left. Gait Assessment Gait Gait Assistance Required: Contact Guard Assist Distance (Feet) 115 Able to Maintain Weight Bearing Status Yes During Gait Assistive Devices Assistive Device Gait Belt,Front Wheeled Walker Orthotic/Prosthetic Devices or Brace: No Gait Deviations General Gait Pattern Decreased Stride Length, Decreased Feet Clearance, Flexed Trunk Factors Limiting Gait Function Factors Limiting Gait Function Decreased Activity Tolerance, Decreased Strength,Pain Comments Gait Comments See mobility comments. Stair Climbing Assessment Evaluation Level of Assist On Stairs Contact Guard Assistance, Minimal Assistance,1 Person Assistance Devices Stair Climbing Assistive Devices Left Railing,Right Railing Technique/Endurance Stair Climbing Direction Ascend and Descend Stair Climbing Technique Step to Step Number of Steps Climbed 3 Stair Climbing Set # Repetitions (reps) 1 Comments Stair Climbing Comments See mobility comments PT-Balance Assessment Sitting Balance and Reactions Static Sitting Balance Ability Good Dynamic Sitting Balance Ability Good Standing Balance and Reactions Static Standing Balance Ability Good Dynamic Standing Balance Ability Fair Device Used FWW M5 PT-IP Objective Assessments Start: 07/13/19 12:05 Freq: NEEDED Status: Active Protocol: Document 07/13/19 12:07 [facility] (Rec: 07/13/19 13:09 [facility] [id number]) Orientation Orientation/Cognition Level of Alertness Alert Safety Awareness Understands Safety Issues Gross Range of Motion Upper Extremity ROM Assessment Within Functional Limits Lower Extremity ROM Assessment Within Functional Limits Strength Upper Extremity Strength Assessment Within Functional Limits Lower Extremity Strength Assessment Within Functional Limits Coordination Assessment Gross Coordination Gross Coordination WNL Sensation Assessment Sensation Gross Sensation WNL Muscle Tone Muscle Tone WNL Yes M6 PT-IP Treatment Start: 07/13/19 12:05 Freq: NEEDED Status: Active Protocol: Document 07/15/19 14:43 SP (Rec: 07/15/19 18:12 SP [id number]) Physical Therapy Treatment Education Education Provided Safety M7 PT-IP Assessment and Plan Start: 07/13/19 12:05 Freq: NEEDED Status: Active Protocol: Document 07/15/19 14:43 SP (Rec: 07/15/19 18:12 SP [id number]) PT Summary Assessment and Plan Potential Rehabilitation Potential Good Status of Condition at Evaluation Evolving Summary Impairments Pain,Strength,Transfers,Gait Progress Towards Goals Slow Progress - Other Assessment Summary Pt required decreased assistance during transfers and gait using FWW, continues to have decrease strength and activity tolerance in standing but improved this afternoon from the past 1.5 days but not to baseline 2 days ago or PLOF. Did not reassess bed mobility this pm tx. Pt man a scale of home environment and supports has for self assistance for mobility. Pt requires CGA durign transfers, CGA- Min during stair mgt BHR during tx today. MATERIAL HANDLER 1ST SHIFT continues to recommend SNF unless improves with bed mobility, transfer, gait and stair mgt with no assist to be able to be independent at home, patient stated doesn't have anyone for physical assistance help at home. Goals Bed Mobility Goal Independent Transfer Goal Standby Assistance Gait Goal Standby Assistance Gait Distance 100 Days to Meet Goals 5 Frequency of Treatment Frequency Of Treatment Twice a Day Treatment Plan Physical Therapy Treatment Plan Bed Mobility Training,Transfer Training,Gait Training, Therapeutic Exercise,Discharge Planning Other Recommendations and Next Treatment bed mobility, transfers, gait Focus further distance without need for w/c follow, 3 stairs with BHR reassessment, standing balance, core ther ex. Recommendations To Nursing Amount of Assist Needed 1 Person Assist Discharge Recommendations PT Discharge Recommendations Home with Assistance,Home Health,SNF Rehab Other Discharge Recommendations At this time pt mobility would require him to go to a SNF rehab to improve his strength, balance for mobiltiy prior to returning home. Transportation Needs at Discharge Private Vehicle
--- NOTE | 2019-07-15 15:53 | CM.DPNOTE ---
DCP Cont TC from Emiliana at [facility] this AM P# [phone], patient has been approved for SNF, auth good for 48 hours. Placed call to Melodie at [facility], she confirmed that, yes, [facility] bed is absolutely needed and it wouldn't be available until Wednesday, at the earliest. Met w/patient to review DCP; he continues to waver in his agreement to SNF, based primarily on his concern about his and son, but he agrees to this LOOKBACK COORDINATOR's continued work to secure a SNF, based on doctor's and therapy's recommendation for such. Patient aware [facility] has authorized a SNF stay. Patient gives this LOOKBACK COORDINATOR choices 1. [facility] 2. [facility] TC to [facility], had to . Faxed referral packet and awaiting CB to discuss referral P: DC Wednesday or Wednesday, SNF ([facility] not until Wednesday) vs Home w/HH (F2F and referral needed) PASRR needed if SNF SILVERIO Mari
[2019-07-15] MEDS: CEFTRIAXONE 2 GM/50 ML FROZ.PIGGY IV (17:31)
[2019-07-15] MEDS: WARFARIN 5 MG TABLET PO (17:57)
[2019-07-16] VITALS (11 sets, daily range): BP systolic 87–126; BP diastolic 42–71; PULSE 87–129; RESP 18–22; TEMP 35.8–36.5; O2SAT 95–99
[2019-07-16 05:47] LABS: INR 2.9 (0.9-1.3); Prothrombin Time 33.5 SECONDS (10.1-12.7)
[2019-07-16 05:50] LABS: Lipase 1568 U/L (23-300)
[2019-07-16 06:16] LABS: Procalcitonin 6.48 ng/mL (<0.5)
[2019-07-16] MEDS: DOCUSATE 100 MG CAPSULE PO (08:50)
[2019-07-16] MEDS: TAMSULOSIN 0.4 MG CAPSULE PO (08:50)
[2019-07-16] MEDS: INSULIN GLARGINE 100 UNIT/ML 3ML PEN 25 UNIT SUBCUT ×2 (08:59→21:11)
[2019-07-16] MEDS: FERROUS SULFATE 325 MG TABLET PO (08:59)
[2019-07-16] MEDS: SODIUM CHLORIDE 0.9% FLUSH 10 ML IV (09:00)
[2019-07-16] MEDS: SODIUM CHLORIDE 0.9% 500 ML 1000 ML IV (09:06)
--- NOTE | 2019-07-16 09:35 | PC.NURSE ---
Addendum entered by Emilia Mitchell R.N. 07/16/19 14:47: Notified by PT regarding patients low BP. At 1442 BP 94/51 HR 91, reports minimal dizziness. No c/o headache, SOB, or chest pain. States not as dizzy as this am. Notified Dr. Cohen regarding BP and symptom. Will continue maintenance IVF. Urine output 525 ml this shift. Encouraging PO fluid intake Addendum entered by Emilia Mitchell R.N. 07/16/19 14:42: 1205. Metoprolol PO ER administered as ordered per Dr. Agosto for rate control. Addendum entered by Emilia Mitchell R.N. 07/16/19 10:05: 1000: Post IVF Bolus. 115/67, reports minimal dizziness, improving. No c/o SOB or chest pain, skin warm, pink and dry. IVF NS at 100 ml/hr initiated. Original Note: Day shift note: Patient awake, alert, and pleasant. Sitting up in chair for breakfast, tolerating well. No c/o nausea or abdominal pain. At 0850 C/O dizziness while sitting, BP 87/43 HR 96, Made Dr. Agosto aware, new order obtained for NS Bolus 500 ml NS. Hold Metoprolol until patient stable. 0925 BP 92/53 HR 91. No C/O SOB, or chest pain. Dizziness improving. Call light within reach, high fall risk precautions maintained.
[2019-07-16] MEDS: SODIUM CHLORIDE 0.9% 1,000 ML 100 ML IV (10:00)
--- NOTE | 2019-07-16 10:49 | PT.IPTN ---
Current Diagnoses Acute pancreatitis without necrosis or infection, unspecified (07/11/19) Physical Therapy Treatment Note M2 PT-IP Current Condition Start: 07/13/19 12:05 Freq: NEEDED Status: Active Protocol: Document 07/13/19 12:07 [facility] (Rec: 07/13/19 13:09 [facility] [id number]) Physical Therapy Current Condition Current Condition Evaluation Date 07/13/19 Treatment Diagnosis increasing weakness, back pain ,sob,hyperglycemia Onset Date 07/07/19 Weight Bearing Status Weight Bearing Status Full Weight Bearing M3 PT-IP Subjective Start: 07/13/19 12:05 Freq: NEEDED Status: Active Protocol: Document 07/16/19 10:49 AB (Rec: 07/16/19 12:51 AB [id number]) Subjective Physical Therapy Visit Type Type Treatment Note Visit Start Time 10:49 Visit Stop Time 11:24 Total Visit Minutes 35 Number of CLEARING HAND Visits 0 Physical Therapy Visit Comments Patient Comments pt agreeable to do PT Therapy Pain Assessment Pain When Pain Assessed At Rest Location Back Scale Used pain scale not stated Description Chronic Pain Behaviors Guarding Pain Management Techniques Modification of Treatment,Re- positioning M4 PT-IP Mobility and Gait Start: 07/13/19 12:05 Freq: NEEDED Status: Active Protocol: Document 07/16/19 10:49 AB (Rec: 07/16/19 12:51 AB [id number]) PT-Transfer Assessment Sit to and From Stand Sit to and from Stand Minimal Assistance,1 Person Assistance,Use of Upper Extremities Equipment Transfer Assistive Device Gait Belt,Front Wheeled Walker Orthotic/Prosthetic Devices or Brace: No Comments Mobility Comments pt sitting on chair and agreeable to do PT. Pt stated that he has transfer poles and grab bars different areas at his home to assist him with getting up due to his back pain. BP monitored. BP sittin/72. completed sit to stand from chair min A and cues. BP checked: 130/66. pt remained standing using FWW for support CGA. BP checked again after ~ 2 min: 116/57. pt ambulated in room ~ 30 ft CGA to min A and cues with unsteady gait. BP in standing after ambulation: 108/69. pt sat back on the chair and positioned. BP checked: 133/ 74. Left pt with call light and table within reach. Gait Assessment Gait Gait Assistance Required: Contact Guard Assist,Minimum Assistance,1 Person Assist Distance (Feet) 30 Able to Maintain Weight Bearing Status Yes During Gait Assistive Devices Assistive Device Gait Belt,Front Wheeled Walker Orthotic/Prosthetic Devices or Brace: No Gait Deviations General Gait Pattern Antalgic,Decreased Stride Length,Decreased Feet Clearance,Step-to Gait Factors Limiting Gait Function Factors Limiting Gait Function Decreased Activity Tolerance, Decreased Strength,Pain,Poor Balance,Poor Safety Awareness Comments Gait Comments pls refer to mobility section for details M5 PT-IP Objective Assessments Start: 07/13/19 12:05 Freq: NEEDED Status: Active Protocol: Document 07/13/19 12:07 [facility] (Rec: 07/13/19 13:09 [facility] [id number]) Orientation Orientation/Cognition Level of Alertness Alert Safety Awareness Understands Safety Issues Gross Range of Motion Upper Extremity ROM Assessment Within Functional Limits Lower Extremity ROM Assessment Within Functional Limits Strength Upper Extremity Strength Assessment Within Functional Limits Lower Extremity Strength Assessment Within Functional Limits Coordination Assessment Gross Coordination Gross Coordination WNL Sensation Assessment Sensation Gross Sensation WNL Muscle Tone Muscle Tone WNL Yes M6 PT-IP Treatment Start: 07/13/19 12:05 Freq: NEEDED Status: Active Protocol: Document 07/16/19 10:49 AB (Rec: 07/16/19 12:51 AB [id number]) Physical Therapy Treatment Education Education Provided Safety M7 PT-IP Assessment and Plan Start: 07/13/19 12:05 Freq: NEEDED Status: Active Protocol: Document 07/16/19 10:49 AB (Rec: 07/16/19 12:51 AB [id number]) PT Summary Assessment and Plan Potential Rehabilitation Potential Good Summary Impairments Pain,ROM,Strength,Balance, Coordination,Sensation, Cognition,Bed Mobility, Transfers,Gait,Activity Tolerance Progress Towards Goals Slow Progress due to Pain,Slow Progress due to Medical Issues Assessment Summary pt requiring CGA to min A with mobility and will need assistance at home. pt stated that his spouse and son will not be able to assist him. d/ c plan depending on progress with mobility but at this time will require SNF rehab to improve strength and mobility independence prior to d/c home . will require ongoing assessment for safe d/c plan. Goals Bed Mobility Goal Independent Transfer Goal Standby Assistance Gait Goal Standby Assistance Gait Distance 100 Days to Meet Goals 5 Frequency of Treatment Frequency Of Treatment Twice a Day Treatment Plan Physical Therapy Treatment Plan Bed Mobility Training,Transfer Training,Gait Training, Therapeutic Exercise,Balance Retraining,Discharge Planning Other Recommendations and Next Treatment ambulation, stair climbing, Focus bed mobility Recommendations To Nursing Amount of Assist Needed 1 Person Assist Discharge Recommendations PT Discharge Recommendations SNF Rehab Transportation Needs at Discharge Private Vehicle
[2019-07-16 10:54] LABS: COVID19 -Nasal RAPID Negative (Negative)
[2019-07-16] MEDS: METOPROLOL ER 25 MG TABLET 100 MG PO (12:05)
[2019-07-16] MEDS: TRAMADOL 50 MG TABLET 100 MG PO ×3 (12:05→21:07)
[2019-07-16] MEDS: INSULIN ASPART 100 UNIT/ML INSULN PEN SUBCUT ×2 (12:06→17:02)
[2019-07-16] MEDS: INSULIN ASPART 100 UNIT/ML INSULN PEN 7 UNIT SUBCUT ×2 (12:07→17:11)
--- NOTE | 2019-07-16 12:49 | PM.PN.1 ---
Subjective Subjective Date Patient Seen: 07/16/19 Time Patient Seen: 12:49 Interval history: He is seen in his room today to follow up his pancreatitis, Ecoli bacteremia, sepsis and Duodenal diverticulitis. He continues to feel stronger every day. he tells me about going up and down stairs and walking 150 feet with PT yesterday. He is quite talkative and is focused on his lunch during my visit. He had some orthostasis earlier today that was treated with a 500 ml IV bolus and resumption of 100 ml / h maintenance fluid for now. The INR is 2.9. The procalcitonin is down to 6.8. Exam Vital Signs (past 8 hours): - 07/16/19 08:00 07/16/19 08:50 07/16/19 10:04 Temperature 97.6 F Pulse Rate 95 H 96 H Pulse Rate [Orthostatic Lying] Pulse Rate [Orthostatic Sitting] Pulse Rate [Orthostatic Standing] Respiratory Rate 18 Blood Pressure 102/63 87/42 L 115/67 Blood Pressure [Orthostatic Lying] Blood Pressure [Orthostatic Sitting] Blood Pressure [Orthostatic Standing] Pulse Oximetry 99 07/16/19 12:00 07/16/19 12:05 Temperature 97.6 F Pulse Rate 93 H 93 H Pulse Rate [Orthostatic Lying] 93 H Pulse Rate [Orthostatic Sitting] 93 H Pulse Rate [Orthostatic Standing] 129 H Respiratory Rate 20 Blood Pressure 109/61 114/53 L Blood Pressure [Orthostatic Lying] 109/61 Blood Pressure [Orthostatic Sitting] 111/68 Blood Pressure [Orthostatic Standing] 114/53 L Pulse Oximetry 99 Oxygen Delivery Method Room Air Oxygen Flow Rate 0 Narrative Exam Narrative: Alert and oriented x3, no apparent distress, he looks visibly stronger, moving with more confidence. He is quite focused on eating his lunch. Heart is regular rate and rhythm without murmur Lungs clear to auscultation bilaterally Abdomen is obese, nontender, no organomegaly, bowel sounds active, soft, extremities have no ankle edema. Objective Labs Result Diagrams: 07/15/19 05:35 07/15/19 05:35 Labs: Laboratory Results - last 24 hr 07/16/19 07/16/19 07/16/19 05:18 05:18 05:18 PT 33.5 H D INR 2.9 H Lipase 1568 H Procalcitonin 6.48 H COVID-19 PCR 07/16/19 09:58 PT INR Lipase Procalcitonin COVID-19 PCR Negative Assessment & Plan Assessment & Plan narrative: Marty Heard is an 83-year-old male with past medical history of type 2 diabetes, hypothyroidism, atrial fibrillation on Coumadin, hypertension, CKD III, and chronic low back pain who was brought in by EMS reporting that he had been in bed with increasing weakness for the past week. He was found to have a severely elevated blood glucose, and appeared dehydrated on exam. His CT showed evidence of pancreatitis as did his elevated lipase, however the patient did not complain of abdominal pain although he did endorse some epigastric pain with nausea and vomiting the previous night. He was admitted for apparent pancreatitis and hyperglycemic hyperosmolar syndrome. 1. Acute pancreatitis, present on admission -CT abdomen on admission showed fat stranding around the pancreatic head and surrounding duodenal inflammation as well most consistent with pancreatitis. -His lipase was elevated at 9330 and he did have complaints of abdominal pain and nausea night prior to admission, although none currently -patient has a gallbladder resection, which was done apparently in July of last year, when he was transferred to [facility]. -abdomen MRI noted inflammatory process adjacent to pancreatic head, centered on gas-filled structure at medial border of descending duodenum. On CT the gas-filled structure appeared extra luminal consistent with inflamed duodenal diverticulum verses medial peptic ulcer. -elevated bilirubin and LFTs, see below -received initial IV hydration, then IV hep-locked, then resumed 07/15 for othostasis symptoms -advanced to regular low fat diet 07/14, well tolerated -triglycerides were normal -Repeat Lipase 07/14 is 2,322, follow up on 07/15 is 1,568. -repeat CT to be done 07/15 2. Possible duodenal diverticulitis, present on admission -this was suggested on abdominal MRI and perhaps causing secondary pancreatitis and biliary obstruction -changed 07/13 from Meropenem to Ceftriaxone which is treating E coli bacteremia -repeat CT to be done 07/15 3. E coli bacteremia, present on admission -source unclear, differential diagnosis includes infected duodenal diverticula vs cholangitis versus acute/chronic prostatitis as patient had urinary retention on admission, -urinalysis microscopic was normal -WBC trending down and normalized -procalcitonin 34 on admission, subsequent procalcitonin 73, last procalcitonin 6.8 5/3. -pansensitive so changed to Ceftriaxone on 07/13. Total duration of IV ABX treatment to be determined partially based on CT followup results 07/15. -He is reporting 3 prior episodes of E.coli infection. Consider ID consultation as an outpatient. Follow up CT 07/15. 4. Type 2 diabetes mellitus, with HHS, present on admission -patient presented with a glucose level near 600, and appeared clinically dehydrated. Ketones were only minimally elevated but there was no anion gap, and no acidosis. This is most consistent with HHS. -insulin drip started on admission and discontinued -glucose trending down with increased insulin -A1c 9.9 indicates poor long-term control -increased Lantus to 25 units b.i.d., with high-dose sliding scale, and 7 units at mealtime. Continue to adjust as necessary. -Patient's home regimen consist of 35 units in the morning, and 30 units in the evening of 70/30 mix. 5. Chronic atrial fibrillation -rate controlled, continue metoprolol ER 100 mg q.d. -INR therapeutic on warfarin, continue 5 mg q.p.m. and repeat 07/15 2.9. -TTE mild LVH, LVEF 60-65% 6. Chronic kidney disease, chronic stage III, present on admission -completed IV fluids, acute portion likely secondary to relative dehydration from HHS or possibly low-flow state as noted below. -admit creatinine 1.87, current creatinine 1.33 improving, baseline creatinine 1.6-1.8 7. Chronic low back pain, -resume patient's tramadol 100 mg t.i.d. as needed -PT/OT consult for mobilization -His baseline is apparently quite limited mobility 8. Elevated liver enzymes -patient presented with an elevated bilirubin of 2.9, AST 474, ALT 265, and alk-phos 252. His INR was elevated at 2.4 but he is on Coumadin. -baseline LFTs in 2019 were normal -etiology unclear but likely biliary stasis or temporary obstruction from inflamed pancreatic head or inflamed duodenal -bilirubin and LFTs normalizing. Bilirubin 0.8 on 07/13. 9. Acute urinary retention, present on admission -Garcia catheter placed in the ED and 1400 cc urine drained -started patient on tamsulosin 0.4 mg q.d. -patient has history of BPH surgery x3 and was told his biopsy also showed prostate CA, he does endorse chronic urinary frequency and urgency at home, received notice to see his urologist and needs to schedule appointment when able -patient wants to wait to remove Garcia 10. Disposition -he really wants to go home and points out that his has dementia and his son has limited mental capacity so he feels very responsible for them. At the same time he agrees with physical therapy that his mobility is extremely limited right now. I pressed him for quite a long time about whether he would be willing to go for rehab to a senior care facility and he ultimately conceded that that may be needed. We will see how quickly he responds and whether he is stronger in the next 2-4 days when stable for discharge after completing IV antibiotics for bacteremia. Code: DNR as specified by patient's POLST form. Surrogate decision maker is listed as his son. DVT: On Coumadin, INR therapeutic Quality VTE Deep Vein Thrombosis/Pulmonary Embolism Present on Admission: No
--- NOTE | 2019-07-16 13:02 | DI.CT.S_ITS ---
PROCEDURE: CT ABDOMEN PELVIS WO CON INDICATIONS: Pancreatitis followup - Duodenal diverticulitis TECHNIQUE: Noncontrast 5 mm thick sections acquired from the diaphragms to the symphysis. 5 mm coronal and sagittal reformats were then performed. For radiation dose reduction, the following was used: automated exposure control, adjustment of mA and/or kV according to patient size. COMPARISON: [facility], CT, CT ABDOMEN PELVIS WO CON, 07/11/2019, 12:03. [facility], CT, ABDOMEN/PELVIS WITH CONTRAST, 02/03/2016, 13:16. FINDINGS: Image quality: Diagnostic. No bleeding trace left-sided pleural effusion with mild atelectasis. The right lung base is unremarkable. ABDOMEN: Lung bases: Lung bases are clear. Heart size is normal. Coronary artery atherosclerosis is present. There is elevation of both diaphragms. Solid organs: Fatty infiltration of the pancreas is present. There is increased density identified within the fat surrounding the head of the pancreas, similar to the previous exam. No drainable or loculated fluid collections adjacent to the pancreas are appreciated. The liver, adrenals, spleen, and kidneys are unchanged. Nephrolithiasis is present without hydronephrosis. Parenchymal atrophy of the kidneys is present. Peritoneum and bowel: There is distention of the stomach with food. A diverticulum involving the 2nd portion of the duodenum is present with mild surrounding edema, similar to the previous study. Otherwise, the duodenum is unremarkable. The remainder of the small bowel loops are within normal limits without significant dilatation. The appendix is well-visualized is not definitely identified. Distal colonic diverticulosis is present without surrounding inflammation to suggest diverticulitis. No free fluid, loculated fluid collection or free air is appreciated. Nodes and vessels: No retroperitoneal or mesenteric adenopathy by size criteria. Aorta and inferior vena cava are normal in caliber. Bones: No acute fracture or suspicious osseous lesion is identified. Moderate degenerative changes of the lumbar spine are present. PELVIS: Genitourinary: The urinary bladder is decompressed related to a Garcia catheter. Thickening of the wall of the bladder is present with possible fatty infiltration. A small amount of air is present within the bladder. The prostate is enlarged, but not adequately evaluated related to the Garcia catheter, which could potentially be positioned within the prostatic urethra. Miscellaneous: No inguinal hernias or adenopathy. No free fluid or loculated fluid collection as the patient. There is a small fat containing right inguinal hernia. No left inguinal hernia or lymphadenopathy is appreciated. Acute pelvic fractures are identified. Bones: No suspicious bony lesions. No vertebral body compression fractures. IMPRESSION: 1. Minimal edema surrounding the head of the pancreas may represent pancreatitis, unchanged. There is no pseudocyst or abscess. 2. Duodenal diverticulum with minimal surrounding edema is nonspecific, but similar to the previous exam. This could potentially be reactive from pancreatitis or may represent duodenal diverticulitis. Please correlate clinically. 3. No bowel obstruction. 4. Nonobstructing bilateral renal calculi. No hydronephrosis. 5. Colonic diverticulosis without diverticulitis. 6. Interval development of a trace left-sided pleural effusion with associated mild atelectasis. 7. Decompressed urinary bladder is to a Garcia catheter. Wall thickening may represent findings from chronic bladder outlet obstruction. Please correlate clinically to cystitis. The bulb of the Garcia catheter may be present within the prostatic urethra. Please correlate clinically. Dictated by: Ruddy Mancini M.D. on 07/16/2019 at 12:50 Approved by: Ruddy Mancini M.D. on 07/16/2019 at 12:58
--- NOTE | 2019-07-16 14:21 | PT-IP ANOTE ---
Checked on pt and pt is complaining of a headache. pt unable to rate intensity but stated that it is not throbbing that needs nitroglycerin. BP checked: 94/42. Pt refused PT. informed nurse regarding BP and symptom. will f/u tomorrow.
[2019-07-16] MEDS: CEFTRIAXONE 2 GM/50 ML FROZ.PIGGY IV (16:40)
[2019-07-16] MEDS: WARFARIN 5 MG TABLET PO (21:10)
[2019-07-17] VITALS (11 sets, daily range): BP systolic 80–118; BP diastolic 49–83; PULSE 75–113; RESP 14–20; TEMP 36.2–37.1; O2SAT 98–100
[2019-07-17] MEDS: SODIUM CHLORIDE 0.9% 1,000 ML 100 ML IV ×2 (00:58→05:39)
--- NOTE | 2019-07-17 01:27 | PC.NURSE ---
Reported I'm seeing purple things there, pointing wall by the TV. Checked his CBG on 55, given snacks requested orange juice, egg salad sandwich & milk. Will monitor.
--- NOTE | 2019-07-17 05:23 | PC.NURSE ---
Dr. Cohen notified if he wants to continue IVF. Orthostatic VS @ 0105 lying B/P 107/70 & HR 7, sitting 89/58 & HR 87, stading 80/81 with the of HR. of 98. Also notified that pt's. is taking 100 mg. of Metoprolol ER. Orders received to cont. NS @ 100 cc/hr & stop Metoprolol for now. Will report to day RN. & monitor.
[2019-07-17] MEDS: LEVOTHYROXINE 50 MCG TABLET PO (05:39)
[2019-07-17] MEDS: FERROUS SULFATE 325 MG TABLET PO (09:20)
[2019-07-17] MEDS: TRAMADOL 50 MG TABLET 100 MG PO ×2 (09:20→21:35)
[2019-07-17] MEDS: INSULIN GLARGINE 100 UNIT/ML 3ML PEN 25 UNIT SUBCUT ×2 (09:21→21:38)
[2019-07-17] MEDS: DOCUSATE 100 MG CAPSULE PO ×2 (09:21→21:31)
[2019-07-17] MEDS: TAMSULOSIN 0.4 MG CAPSULE PO (09:21)
--- NOTE | 2019-07-17 11:27 | OT.IP.TRT ---
Current Diagnoses Acute pancreatitis without necrosis or infection, unspecified (07/11/19) Occupational Therapy Treatment Note M2 OT-IP Current Condition Start: 07/13/19 17:06 Freq: Status: Active Protocol: Document 07/13/19 15:48 [facility] (Rec: 07/13/19 17:43 [facility] [id number]) Occupational Therapy Current Condition Current Condition Evaluation Date 07/13/19 Treatment Diagnosis Acute pancreatitis Diagnosis Onset Date 07/11/19 Weight Bearing Status Weight Bearing Status Weight Bear as Tolerated M3 OT- IP Subjective and Pain Start: 07/13/19 17:06 Freq: Status: Active Protocol: Document 07/17/19 12:28 [facility] (Rec: 07/17/19 12:37 [facility] [id number]) OT- Subjective Occupational Therapy Visit Type Type Treatment Note Visit Start Time 10:57 Visit Stop Time 11:25 Total Visit Minutes 28 Occupational Therapy Visit Comments Patient Comments Pt stating feeling too weak and not wanting to get up at this time but agreed to do cognitive assessments with OT. Patient/Caregiver Goals Pt realizes that he is weak, and now states his family not able to provide any physical assist and does not want to go to skilled rehab. OT Pain Assessment Pain When Pain Assessed At Rest Pain Present Pain Present Denied Pain M4 OT- IP ADL's Start: 07/13/19 17:06 Freq: Status: Active Protocol: Document 07/15/19 13:39 [facility] (Rec: 07/15/19 13:49 [facility] [id number]) OT [id number] Comments OT Self-Feeding Comments Pt had just finished lunch OT ADL-Grooming General Evaluation Grooming Ability Standby Assistance Areas Needing Assistance Retrieving/Set-up of Grooming Items,Combing/Brushing Hair, Face Washing Comments OT Grooming Comments standing at sink OT ADL-Oral Care Comments Oral Care Comments not performed, pt states he doesn't have any teeth in. OT ADL-Dressing Comments OT Dressing Comments not performed in this session. OT ADL-Toileting Comments OT Toileting Comments Pt just returned recently from bathroom with nursing. No needs at this time. OT ADL-Bathing Comments OT Bathing Comments Not performed M5 OT- IP IADL's Start: 07/13/19 17:06 Freq: Status: Active Protocol: Document 07/13/19 15:48 [facility] (Rec: 07/13/19 17:43 [facility] [id number]) OT-Instrumental Activities of Daily Living Home Safety Awareness Awareness of Need for Assistance at Home Good Awareness Ability to Problem Solve Emergency Able to Problem Solve Situations Medication Management Medication Management No Deficits Identified Money Management Money Management No Deficits Identified Meal Preparation Meal Preparation Caregiver Provides Assist Photographic Restorer Photographic Restorer Caregiver Provides Assist Driving Driving Comments Pt states has not been driving since COVID -19. M6 OT- IP Functional Cognition Start: 07/13/19 17:06 Freq: Status: Active Protocol: Document 07/17/19 12:28 [facility] (Rec: 07/17/19 12:37 [facility] [id number]) Cognitive Factors Limiting Selfcare Function Cognitive Ability Level of Alertness Alert Patient Orientation Name,Age,Birthday,Month,Date, Year,Day of Week,Place, Situation Attention Span Ability Capable of Focused Attention, Capable of Sustained Attention Ability to Follow Commands Able to Follow Multi-Step Commands Memory Description No Deficits Noted Safety Awareness Underestimates Need for Assistance Problem Solving Ability No deficits Noted Cognitive Comments Cognitive Assessment Comments Pt able to answer all home safety questions with 100% accuracy. Pt scored 158 seconds on [place] making Part B which implies significant impairments for mental flexibility , executive thinking, visual attention, and speed of processing. M7 OT- IP Mobility and Balance Start: 07/13/19 17:06 Freq: Status: Active Protocol: Document 07/15/19 13:39 [facility] (Rec: 07/15/19 13:49 [facility] [id number]) OT-Transfer Assessment Sit to and From Stand Sit to and from Stand Contact Guard Assistance Transfers Transfer Ability Contact Guard Assistance Technique Transfer Destination Chair Transfer Technique Stand Step Pivot Devices Transfer Assistive Devices Gait Belt,Front Wheeled Walker Comments Mobility Comments Pt was able to perform sit to stand from chair without assist, stood for BPs, then ambulated to sink and stood for ADLs standing. Chair brought to him d/t fatigue. M8 OT- IP Objective Assessments Start: 07/13/19 17:06 Freq: Status: Active Protocol: Document 07/13/19 15:48 [facility] (Rec: 07/13/19 17:43 [facility] [id number]) OT Gross Range of Motion Upper Extremity Range of Motion Assessment Within Functional Limits OT Strength Upper Extremity Strength Assessment Within Functional Limits M9 OT- IP Assessment and Plan Start: 07/13/19 17:06 Freq: Status: Active Protocol: Document 07/17/19 12:28 [facility] (Rec: 07/17/19 12:37 [facility] [id number]) OT Summary Assessment and Plan Potential Rehabilitation Potential Good Analytic Complexity at Evaluation Low Summary OT Impairments Balance,Functional Mobility, Dressing,Toileting,Bathing, Shower Transfers,Activity Tolerance Progress Towards Goals Slow Progress due to Pain,Slow Progress due to Activity Tolerance Assessment Summary Pt would benefit from skilled rehab if agreeable as pt's family not able to provide physically assistance. Goals Grooming Goal Independent Dressing Goal Independent,Rheumatology Nurse,Sock Aid Toileting Goal Independent Bathing Goal Independent Toilet Transfer Goal Independent Shower Transfer Goal Independent Days to Meet Goals 5 Frequency of Treatment Frequency Of Treatment Once a Day Treatment Plan OT Treatment Plan ADL Training,Functional Mobility,Patient/Family Education,Discharge Planning Other Treatment Recommendations and Next ADLs standing and endurance, Treatment Focus shower Discharge Recommendations OT Discharge Recommendations SNF Rehab Home Equipment Needs Pt has all equipment needs. Transportation Needs at Discharge Private Vehicle
[2019-07-17] MEDS: INSULIN ASPART 100 UNIT/ML INSULN PEN SUBCUT ×3 (12:03→21:38)
[2019-07-17] MEDS: INSULIN ASPART 100 UNIT/ML INSULN PEN 7 UNIT SUBCUT ×2 (12:04→18:04)
--- NOTE | 2019-07-17 12:44 | PT.IPTN ---
Current Diagnoses Acute pancreatitis without necrosis or infection, unspecified (07/11/19) Physical Therapy Treatment Note M2 PT-IP Current Condition Start: 07/13/19 12:05 Freq: NEEDED Status: Active Protocol: Document 07/13/19 12:07 [facility] (Rec: 07/13/19 13:09 [facility] [id number]) Physical Therapy Current Condition Current Condition Evaluation Date 07/13/19 Treatment Diagnosis increasing weakness, back pain ,sob,hyperglycemia Onset Date 07/07/19 Weight Bearing Status Weight Bearing Status Full Weight Bearing M3 PT-IP Subjective Start: 07/13/19 12:05 Freq: NEEDED Status: Active Protocol: Document 07/17/19 12:44 [facility] (Rec: 07/17/19 13:56 [facility] [id number]) Subjective Physical Therapy Visit Type Type Treatment Note Visit Start Time 12:44 Visit Stop Time 13:19 Total Visit Minutes 35 Number of [employer] Visits 0 Physical Therapy Visit Comments Patient Comments pt stated that he is feeling better compared to this morning M4 PT-IP Mobility and Gait Start: 07/13/19 12:05 Freq: NEEDED Status: Active Protocol: Document 07/17/19 12:44 [facility] (Rec: 07/17/19 13:56 [facility] [id number]) PT-Transfer Assessment Sit to and From Stand Sit to and from Stand Contact Guard Assistance,1 Person Assistance,Use of Upper Extremities Equipment Transfer Assistive Device Gait Belt,Front Wheeled Walker Orthotic/Prosthetic Devices or Brace: No Comments Mobility Comments BP monitored. BP in sittin/74. MD came in to check on pt. d/c plan is to have pt go to SNF but pt is refusing. stated that he has rails at home that he can use. completed sit to stand CGA. BP with initial standin/ 73. pt was able to maintain standing using FWW for support SBA to GA. BP checked in standing after 2 mins: 123/68. pt ambulated in room ~ 25 ft using FWW CGA. checked BP again in standing after ambulation: 107/58. pt agreed to do another ambulation and completed 25 ft CGA using FWW. BP checked again in standing : 107/79. pt sat back on the chair. positioned on the chair. BP at end of tx session: 142/74. call light and table placed within reach. Pt stated that he does not want to go to SNF because of previous unpleasant experience . 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 informed pt regarding recommendation and safety and need for caregiver training. also informed pt to use FWW at all times even when inside the house and do not use stairs. also informed regarding homehealth therapy when pt goes home. pt understood and agreed. Gait Assessment Gait Gait Assistance Required: Contact Guard Assist,1 Person Assist Distance (Feet) 25 Able to Maintain Weight Bearing Status Yes During Gait Assistive Devices Assistive Device Gait Belt,Front Wheeled Walker Orthotic/Prosthetic Devices or Brace: No Gait Deviations General Gait Pattern Antalgic,Decreased Stride Length,Decreased Feet Clearance,Wide Based Gait Factors Limiting Gait Function Factors Limiting Gait Function Decreased Activity Tolerance, Decreased Strength,Limited Range of Motion,Pain,Poor Balance,Poor Safety Awareness M5 PT-IP Objective Assessments Start: 07/13/19 12:05 Freq: NEEDED Status: Active Protocol: Document 07/13/19 12:07 [facility] (Rec: 07/13/19 13:09 [facility] [id number]) Orientation Orientation/Cognition Level of Alertness Alert Safety Awareness Understands Safety Issues Gross Range of Motion Upper Extremity ROM Assessment Within Functional Limits Lower Extremity ROM Assessment Within Functional Limits Strength Upper Extremity Strength Assessment Within Functional Limits Lower Extremity Strength Assessment Within Functional Limits Coordination Assessment Gross Coordination Gross Coordination WNL Sensation Assessment Sensation Gross Sensation WNL Muscle Tone Muscle Tone WNL Yes M6 PT-IP Treatment Start: 07/13/19 12:05 Freq: NEEDED Status: Active Protocol: Document 07/17/19 12:44 [facility] (Rec: 07/17/19 13:58 [facility] [id number]) Physical Therapy Treatment Education Education Provided Safety M7 PT-IP Assessment and Plan Start: 07/13/19 12:05 Freq: NEEDED Status: Active Protocol: Document 07/17/19 12:44 [facility] (Rec: 07/17/19 13:56 [facility] [id number]) PT Summary Assessment and Plan Potential Rehabilitation Potential Good Summary Impairments Pain,ROM,Strength,Balance, Coordination,Sensation,Tone, Cognition,Bed Mobility, Transfers,Gait,Activity Tolerance Progress Towards Goals Slow Progress due to Pain,Slow Progress due to Medical Issues Assessment Summary monitored pt's BP this session and was able to maintain BP without significant drop. Pt also has no c/o symptoms. pt requiring CGA with mobility and limited activity due to LBP and generalized weakness. Pt refuses to go to SNF. informed regarding caregiver training and pt agreed. will conduct caregiver training prior to d/c and if caregiver is able to provide pt appropriate assistance, pt then may go home with assist and will need homehealth PT. will continue to monitor pt's progress. Goals Bed Mobility Goal Independent Transfer Goal Standby Assistance Gait Goal Standby Assistance Gait Distance 100 Days to Meet Goals 5 Frequency of Treatment Frequency Of Treatment Twice a Day Treatment Plan Physical Therapy Treatment Plan Bed Mobility Training,Transfer Training,Gait Training, Therapeutic Exercise,Balance Retraining,Discharge Planning Other Recommendations and Next Treatment ambulation, stair climbing, Focus bed mobility Recommendations To Nursing Amount of Assist Needed 1 Person Assist Discharge Recommendations PT Discharge Recommendations Home with Assistance,Home Health,SNF Rehab Transportation Needs at Discharge Private Vehicle
--- NOTE | 2019-07-17 13:20 | PT-IP ANOTE ---
checked on pt 1042 am and pt sitting on chair already. pt stated that he is not feeling too well but agreed to do PT. BP checked in sittin/62. attempted to stand but pt later stated that he is lightheaded and feels too weak to stand up. BP checked again: 101/61. pt wants his blood sugar check as well since he had a low sugar incident last night per pt. informed nurse and blood sugar was checked: 214. pt stated that he just wants to rest at this time. will check back on pt .
--- NOTE | 2019-07-17 15:29 | PT-IP ANOTE ---
Talked to case resolution specialist regarding caregiver training set up for tomorrow. informed case resolution specialist that pt is refusing to go to SNF and caregiver training has been arranged to determine safety with d/c. Talked to pt and pt stated that his son Jason Heard will be coming at 1030 am tomorrow 07/18/19Wednesday for caregiver training. manager strategic marketing wanted to know if they can contact his family for info regarding him . PT asked pt regarding this and pt agreed and gave permission to contact family. Informed pt that caregiver training will be conducted tomorrow and if pt and family are not able to demonstrate safe mobility then pt has to go to SNF rehab. Pt neither agreed or disagree. Informed case resolution specialist regarding conversation with pt.
--- NOTE | 2019-07-17 15:52 | CM.DPC ---
Used scanned HCI sheet to get contact information for oldest son - Beka - who lives in [place]. Beka's Marjorie gave me his cell phone ([phone]) and I was able to reach him. I updated Beka about his father's medical state including today's challenges with hypotension. I also informed Beka of his father's wish to go home vs. SNF. I asked if Beka had any opinion about home as an option. Beka explained that his father had a bad experience with [facility] last summer (per son - apparently there was only one PT appt. daily and almost no care provided.). Beka was not sure his dad would ever agree to SNF. He said his brother Jason moved in with patient and to care for them despite his own frequent health issues. Beka thinks Jason is able to assist with basic assistance - getting patient up and out of chairs, bed, etc. Jason does errands and grocery. Pt. is responsible for food. Beka expressed concerns about medication management/education and feels that nursing as well as PT/OT would be a good option if possible. I explained that Jason is scheduled to come in tomorrow for acute care occupational therapist training with PT. I told Beka that CM would stop and meet Jason and patient during visit so we can discuss with all participants in the discharge plan.
--- NOTE | 2019-07-17 16:32 | PM.PN.1 ---
Subjective Subjective Date Patient Seen: 07/17/19 Interval history: Patient continues to exhibit orthostatic hypotension. He continues to have erratic blood sugars as well. The patient does NOT want to go to SNF. Unfortunately he is very unsteady with ambulation. He has a disabled child at home, and his is ill as well. We have arranged for physician locums urgent care training tomorrow We just don't know who the caregiver is. Exam Vital Signs (past 8 hours): - 07/17/19 09:00 07/17/19 09:40 07/17/19 10:55 Temperature 97.8 F Pulse Rate 88 Pulse Rate [Orthostatic Lying] 93 H Pulse Rate [Orthostatic Sitting] 89 Pulse Rate [Orthostatic Standing] 97 H Respiratory Rate 18 Blood Pressure 103/58 L 101/61 Blood Pressure [Orthostatic Lying] 118/65 Blood Pressure [Orthostatic Sitting] 103/61 Blood Pressure [Orthostatic Standing] 87/50 L Pulse Oximetry 98 07/17/19 14:00 07/17/19 15:20 Temperature 98.8 F 97.3 F L Pulse Rate 89 86 Pulse Rate [Orthostatic Lying] Pulse Rate [Orthostatic Sitting] Pulse Rate [Orthostatic Standing] Respiratory Rate 18 20 Blood Pressure 118/74 108/83 Blood Pressure [Orthostatic Lying] Blood Pressure [Orthostatic Sitting] Blood Pressure [Orthostatic Standing] Pulse Oximetry 98 99 Oxygen Delivery Method Room Air Oxygen Flow Rate 0 Narrative Exam Narrative: Pleasant male in NAD Lungs: decreased breath sounds but clear to auscultation CV: Irregularly, irregular nl Sl S2 Abd: Soft/ non tender/ non distended Ext 2+ edema bilaterally Objective Labs Result Diagrams: 07/15/19 05:35 07/15/19 05:35 Assessment & Plan Assessment & Plan narrative: 1. Acute pancreatitis, present on admission -CT abdomen on admission showed fat stranding around the pancreatic head and surrounding duodenal inflammation as well most consistent with pancreatitis. -His lipase was elevated at 9330 and he did have complaints of abdominal pain and nausea night prior to admission, although none currently -patient has a gallbladder resection, which was done apparently in July of last year, when he was transferred to [facility]. -abdomen MRI noted inflammatory process adjacent to pancreatic head, centered on gas-filled structure at medial border of descending duodenum. On CT the gas-filled structure appeared extra luminal consistent with inflamed duodenal diverticulum verses medial peptic ulcer. -elevated bilirubin and LFTs, see below -received initial IV hydration, then IV hep-locked, then resumed 07/15 for othostasis symptoms -advanced to regular low fat diet 07/14, well tolerated -triglycerides were normal -Repeat Lipase 07/14 is 2,322, follow up on 07/15 is 1,568. -repeat CT to be done 07/15 - still with pancreatitis and duodenitis. -Continue to advance diet as tolerated 2. Possible duodenal diverticulitis, present on admission -this was suggested on abdominal MRI and perhaps causing secondary pancreatitis and biliary obstruction -changed 07/13 from Meropenem to Ceftriaxone which is treating E coli bacteremia -repeat CT to be done 07/15 3. E coli bacteremia, present on admission -source unclear, differential diagnosis includes infected duodenal diverticula vs cholangitis versus acute/chronic prostatitis as patient had urinary retention on admission, -urinalysis microscopic was normal -WBC trending down and normalized -procalcitonin 34 on admission, subsequent procalcitonin 73, last procalcitonin 6.8 07/15. -pansensitive so changed to Ceftriaxone on 07/13. Total duration of IV ABX treatment to be determined partially based on CT followup results 07/15. -He is reporting 3 prior episodes of E.coli infection. Consider ID consultation as an outpatient. Follow up CT 07/15. -Continue IV antbiotics 4. Type 2 diabetes mellitus, with HHS, present on admission -patient presented with a glucose level near 600, and appeared clinically dehydrated. Ketones were only minimally elevated but there was no anion gap, and no acidosis. This is most consistent with HHS. -insulin drip started on admission and discontinued -glucose trending down with increased insulin -A1c 9.9 indicates poor long-term control -increased Lantus to 25 units b.i.d., with high-dose sliding scale, and 7 units at mealtime. Continue to adjust as necessary. -Patient's home regimen consist of 35 units in the morning, and 30 units in the evening of 70/30 mix. -Insulin adjusted again to 45 Units of Lantus BID, will contiue to monitor closely 5. Chronic atrial fibrillation -rate controlled, metoprolol on hold given orthostatic hypotension -INR therapeutic on warfarin, continue 5 mg q.p.m. and repeat 07/15 2.9. -TTE mild LVH, LVEF 60-65% 6. Chronic kidney disease, chronic stage III, present on admission -completed IV fluids, acute portion likely secondary to relative dehydration from HHS or possibly low-flow state as noted below. -admit creatinine 1.87, current creatinine 1.33 improving, baseline creatinine 1.6-1.8 7. Chronic low back pain, -resume patient's tramadol 100 mg t.i.d. as needed -PT/OT consult for mobilization -His baseline is apparently quite limited mobility 8. Elevated liver enzymes -patient presented with an elevated bilirubin of 2.9, AST 474, ALT 265, and alk-phos 252. His INR was elevated at 2.4 but he is on Coumadin. -baseline LFTs in 2019 were normal -etiology unclear but likely biliary stasis or temporary obstruction from inflamed pancreatic head or inflamed duodenal -bilirubin and LFTs normalizing. Bilirubin 0.8 on 07/13. 9. Acute urinary retention, present on admission -Garcia catheter placed in the ED and 1400 cc urine drained -started patient on tamsulosin 0.4 mg q.d. -patient has history of BPH surgery x3 and was told his biopsy also showed prostate CA, he does endorse chronic urinary frequency and urgency at home, received notice to see his urologist and needs to schedule appointment when able -patient wants to wait to remove Garcia -Garcia d/c'd today, will hold tamsulosin given orthostatic hypotension 10. Orthostatic hypotension -doubt volume related -will check cotrosyn stim test to r/o adrenal insufficiency -if above negative may reflect autonomic insufficiency and respond to flourinef, will await cortisol results. ( tomorrow) -IVF disctonined, metoprolol d/c, tamsulosin dc/d 11. Disposition -he really wants to go home and points out that his has dementia and his son has limited mental capacity so he feels very responsible for them. At the same time he agrees with physical therapy that his mobility is extremely limited right now. I pressed him for quite a long time about whether he would be willing to go for rehab to a [facility] facility and he ultimately conceded that that may be needed. We will see how quickly he responds and whether he is stronger in the next 2-4 days when stable for discharge after completing IV antibiotics for bacteremia. Hopefully, mobility will improve after orthostatic hypotension Code: DNR as specified by patient's POLST form. Surrogate decision maker is listed as his son. DVT: On Coumadin, INR therapeutic Quality VTE Deep Vein Thrombosis/Pulmonary Embolism Present on Admission: No
[2019-07-17] MEDS: CEFTRIAXONE 2 GM/50 ML FROZ.PIGGY IV (17:40)
[2019-07-17] MEDS: WARFARIN 5 MG TABLET PO (18:01)
[2019-07-17] MEDS: SODIUM CHLORIDE 0.9% FLUSH 10 ML IV (21:33)
--- NOTE | 2019-07-17 23:24 | PC.NURSE ---
Orthostatic: L 115/68 HR 83, S 110/58 HR 87 Stand 102/61 HR 113 Tramadol 100 at bedtime for chronic back pain
[2019-07-18] VITALS (7 sets, daily range): BP systolic 83–124; BP diastolic 51–78; PULSE 86–113; RESP 16–20; TEMP 35.8–37.1; O2SAT 96–99
--- NOTE | 2019-07-18 02:12 | PC.NURSE ---
Addendum entered by Yanely Brown R.N. 07/18/19 03:29: CBG at 0200 was 62 so patient given snack: milk, OJ + pudding and repeat CBG was 79 Original Note: Patient seen and assessed at 0005. Is alert and oriented. [place] but does not have hearing aids. Breath sounds CTA with RA sat of 100%. HR irregular; his of afib. Denies nausea. BT present and is passing flatus. Voiding per urinal; has chronic urgency. Is able to turn self in bed. Up to bathroom with walker and 1 assist; weakness in bilateral LE. Has chronic back pain but denies pain at time of assessment. Noted skin to be red in bilateral groins. Bruises present on bilateral UE and abdomen. Bilateral anterior LE are erythemic as is right outer ankle. Generalized edema with 3+ in bilateral LE. Noted postural hypotension but denies dizziness when up. Wearing bilateral calf SCD's. Fall risk score is high and bed alarm is activated.
[2019-07-18] MEDS: LEVOTHYROXINE 50 MCG TABLET PO (06:38)
[2019-07-18] MEDS: COSYNTROPIN 0.25 MG VIAL IV (06:44)
[2019-07-18 07:41] LABS: Cortisol Random 9.03 ug/dL
[2019-07-18] MEDS: FERROUS SULFATE 325 MG TABLET PO (08:08)
[2019-07-18] MEDS: TRAMADOL 50 MG TABLET 100 MG PO ×2 (08:08→22:29)
[2019-07-18] MEDS: DOCUSATE 100 MG CAPSULE PO ×2 (08:08→21:11)
[2019-07-18] MEDS: SODIUM CHLORIDE 0.9% FLUSH 10 ML IV ×2 (08:09→21:11)
[2019-07-18] MEDS: INSULIN ASPART 100 UNIT/ML INSULN PEN SUBCUT ×4 (08:10→21:11)
[2019-07-18] MEDS: INSULIN ASPART 100 UNIT/ML INSULN PEN 7 UNIT SUBCUT ×3 (08:10→16:54)
[2019-07-18 08:21] LABS: Cortisol Random 19.4 ug/dL
[2019-07-18 08:41] LABS: Cortisol Random 21.6 ug/dL
[2019-07-18] MEDS: INSULIN GLARGINE 100 UNIT/ML 3ML PEN 25 UNIT SUBCUT ×2 (10:00→21:12)
--- NOTE | 2019-07-18 10:03 | PM.CHAP ---
Made a short visit. Pt. expressed desire to return home rather than SNF. Pt also asked for information on medical equipment. Recommended that Pt include this in today's d/c planning meeting with son. Chris Jackson [phone]
--- NOTE | 2019-07-18 10:28 | PT.IPTN ---
Current Diagnoses Acute pancreatitis without necrosis or infection, unspecified (07/11/19) Physical Therapy Treatment Note M2 PT-IP Current Condition Start: 07/13/19 12:05 Freq: NEEDED Status: Active Protocol: Document 07/13/19 12:07 [facility] (Rec: 07/13/19 13:09 [facility] [id number]) Physical Therapy Current Condition Current Condition Evaluation Date 07/13/19 Treatment Diagnosis increasing weakness, back pain ,sob,hyperglycemia Onset Date 07/07/19 Weight Bearing Status Weight Bearing Status Full Weight Bearing M3 PT-IP Subjective Start: 07/13/19 12:05 Freq: NEEDED Status: Active Protocol: Document 07/18/19 10:28 [facility] (Rec: 07/18/19 11:45 [facility] [id number]) Subjective Physical Therapy Visit Type Type Treatment Note Visit Start Time 10:28 Visit Stop Time 11:09 Total Visit Minutes 41 Number of PUBLICATIONS DISTRIBUTION CLERK Visits 1 Physical Therapy Visit Comments Patient Comments Pt feeling better today and wants to go home. Son present for CG training. Therapy Pain Assessment Pain When Pain Assessed During Mobility Pain Present Pain Present Pain Reported Location Back Scale Used pain scale not stated Description Chronic Pain Behaviors Guarding Pain Management Techniques Modification of Treatment,Re- positioning M4 PT-IP Mobility and Gait Start: 07/13/19 12:05 Freq: NEEDED Status: Active Protocol: Document 07/18/19 10:28 [facility] (Rec: 07/18/19 11:45 [facility] [id number]) PT-Bed Mobility Assessment Rolling Type of Rolling Bilateral Level of Assist Standby Assistance Supine to Sit Supine to Sit Standby Assistance,Head of Bed Elevated,Bedrails Sit to Supine Sit to Supine Minimal Assistance,Bedrails Scooting Scooting to Edge of Bed Standby Assistance Scooting Up and Down in Bed Standby Assistance PT-Transfer Assessment Sit to and From Stand Sit to and from Stand Contact Guard Assistance,1 Person Assistance,Use of Upper Extremities Equipment Transfer Assistive Device Gait Belt,Front Wheeled Walker Orthotic/Prosthetic Devices or Brace: No Transfers Transfer Destination Bed,Chair,Wheelchair Transfer Technique pt ambulated using FWW Transfer Ability Level of Assist Contact Guard Assistance,Use of Upper Extremities Comments Mobility Comments Pt BP monitored during tx. Sitting in chair at start of tx BP 96/73, BP in standing 101/68. Pt required CGA for sit-stand with son Humphrey providing CGA. Pt ambulated ~ 15ft to holguin to sit in WC, Pt used FWW and son Humphrey provided CGA, pt with improved foot clearance. Pt sat in WC with good safety awareness asking if brakes were on, pt made sure his legs were touching the WC seat and reached back for arms to use UE's to sit with good control. Pt stood from WC and ambulate with CGA and FWW ~5ft to training stairs. Pt required CGA and bilateral rails to climb three steps up/down. Pt was then able to ambulate ~120ft CGA and FWW before sitting in WC. Once back to room pt ambulated ~12ft to left side of bed to perform bed mobility. Pt required Min A for bed mobility for assist with legs onto bed but has good awareness of log roll to prevent twisting of back to prevent pain. Pt uses bed rails to assist with bed mobility. Pt able to get to EOB from supine SBA with use of bed rails and HOB elevated. Pt BP in supine 137/77, BP in sitting on EOB 97/65, pt transferred from standing in front of bed to chair and performed small standing marches, Standing BP 94/55, pt then sat in chair with BP 104 /59. Once seated pt was given call light and table, Dr and son in room to discuss BP. Gait Assessment Gait Gait Assistance Required: Contact Guard Assist,1 Person Assist Distance (Feet) 120 Able to Maintain Weight Bearing Status Yes During Gait Assistive Devices Assistive Device Gait Belt,Front Wheeled Walker Gait Deviations General Gait Pattern Antalgic,Decreased Stride Length,Decreased Feet Clearance,Wide Based Gait Factors Limiting Gait Function Factors Limiting Gait Function Decreased Activity Tolerance, Decreased Strength,Limited Range of Motion,Pain,Poor Balance Comments Gait Comments pls refer to mobility section for details Stair Climbing Assessment Evaluation Level of Assist On Stairs Contact Guard Assistance,1 Person Assistance Devices Stair Climbing Assistive Devices Left Railing,Right Railing Technique/Endurance Stair Climbing Direction Ascend and Descend Stair Climbing Technique Step to Step Number of Steps Climbed 3 Stair Climbing Set # Repetitions (reps) 1 Comments Stair Climbing Comments Pt able to climb stairs with bilateral rails and son assisting with CGA. M5 PT-IP Objective Assessments Start: 07/13/19 12:05 Freq: NEEDED Status: Active Protocol: Document 07/13/19 12:07 [facility] (Rec: 07/13/19 13:09 [facility] [id number]) Orientation Orientation/Cognition Level of Alertness Alert Safety Awareness Understands Safety Issues Gross Range of Motion Upper Extremity ROM Assessment Within Functional Limits Lower Extremity ROM Assessment Within Functional Limits Strength Upper Extremity Strength Assessment Within Functional Limits Lower Extremity Strength Assessment Within Functional Limits Coordination Assessment Gross Coordination Gross Coordination WNL Sensation Assessment Sensation Gross Sensation WNL Muscle Tone Muscle Tone WNL Yes M6 PT-IP Treatment Start: 07/13/19 12:05 Freq: NEEDED Status: Active Protocol: Document 07/17/19 12:44 AB (Rec: 07/17/19 13:58 AB [id number]) Physical Therapy Treatment Education Education Provided Safety M7 PT-IP Assessment and Plan Start: 07/13/19 12:05 Freq: NEEDED Status: Active Protocol: Document 07/18/19 10:28 [facility] (Rec: 07/18/19 11:45 [facility] [id number]) PT Summary Assessment and Plan Summary Impairments Pain,ROM,Strength,Balance, Coordination,Sensation,Tone, Cognition,Bed Mobility, Transfers,Gait,Activity Tolerance Progress Towards Goals Slow Progress due to Pain,Slow Progress due to Medical Issues Assessment Summary Monitored pt's BP during full session. Pt's son available for CG training, son able to appropriately assist pt with all mobility. Pt BP continues to drop but pt denies dizziness or lightheadedness. Pt seems safe with mobility with assist at home from son HUMPHREY when medically stable. Will continues to work with pt to increase strength and activity tolerance. Goals Bed Mobility Goal Independent Transfer Goal Standby Assistance Gait Goal Standby Assistance Gait Distance 100 Days to Meet Goals 5 Frequency of Treatment Frequency Of Treatment Twice a Day Treatment Plan Physical Therapy Treatment Plan Bed Mobility Training,Transfer Training,Gait Training, Therapeutic Exercise,Balance Retraining,Discharge Planning Other Recommendations and Next Treatment ambulation, bed mobility. Focus Recommendations To Nursing Amount of Assist Needed 1 Person Assist Discharge Recommendations PT Discharge Recommendations Home with Assistance,Home Health,SNF Rehab Transportation Needs at Discharge Private Vehicle
--- NOTE | 2019-07-18 11:05 | CM.DPC ---
Addendum entered by Marya Sol R.N. 07/18/19 13:06: Dr. Mcgarry signed face to face. Patient is not being discharged today due to blood pressure issues. Addendum entered by Marya Sol R.N. 07/18/19 12:39: Spoke to Aracelis at [place], telehealth case manager, and gave her update that now, home is the plan. Asked her if patient goes home and decides that he needs care home, what options that he has. She recommended that home health nurse or patient call correction services at [place]. Their phone number is: [phone]. They can walk them through process, if needed. Let Aracelis at [facility] know that case management would continue to give her updates on discharge. Addendum entered by Marya Sol R.N. 07/18/19 11:16: Spoke to Rodo at [employer], let him know that face sheet, and H&P will be sent. Original Note: DCP Cont: Patient has indicated that he would really like to go home first, before considering going to care home. Son, Jason, lives with patient and is here for transfer training. Original plan was for patient to go to [facility], but due to concerns of his at home, he really wants home. Son, Jason, was present during transfer training. Robbie Sibley was in room, as well as VILMA Garcia. Patient was able to get up from chair, with gait belt, and son was exhibiting contact guard assist. Patient did have a decrease in BP, but was steady on his feet. Did ambulate in hallway with gait belt, and wheel-chair behind him. Did do stairs, and was able to go up, as well as down, and son was exhibiting contact guard. Asked patient, to verify if he wants home, and asked son, Jason, if he feels comfortable caring for his father at home, since patient has indicated that he does have assistance at home. Son stated, he does feel comfortable, they have bars in the home, and in the shower. Patient also has two walkers, and a power chair. Son, Jason, stated that he also watches his mom, she has dementia, but can get around. He will observe her cooking in the kitchen. Asked about preferences for home health, and patient stated that he has used [facility] before. Will ask for nursing, P.T, O.T, and GROOVING LATHE TENDER consult. Unclear if patient will discharge home today, this will depend upon his blood pressures. P: Plan is for patient to go home with [facility]. Will call [facility] and fax over H&P, and face sheet. Face to face still needs to be signed. Marya Sol RN/Window Shade Estimator
--- NOTE | 2019-07-18 11:14 | OT.IP.TRT ---
Current Diagnoses Acute pancreatitis without necrosis or infection, unspecified (07/11/19) Occupational Therapy Treatment Note M2 OT-IP Current Condition Start: 07/13/19 17:06 Freq: Status: Active Protocol: Document 07/13/19 15:48 [facility] (Rec: 07/13/19 17:43 [facility] [id number]) Occupational Therapy Current Condition Current Condition Evaluation Date 07/13/19 Treatment Diagnosis Acute pancreatitis Diagnosis Onset Date 07/11/19 Weight Bearing Status Weight Bearing Status Weight Bear as Tolerated M3 OT- IP Subjective and Pain Start: 07/13/19 17:06 Freq: Status: Active Protocol: Document 07/18/19 14:11 [facility] (Rec: 07/18/19 14:19 [facility] [id number]) OT- Subjective Occupational Therapy Visit Type Type Treatment Note Visit Start Time 10:26 Visit Stop Time 11:14 Total Visit Minutes 48 Occupational Therapy Visit Comments Patient Comments Pt's son present for caregiver training. Patient/Caregiver Goals To go home. OT Pain Assessment Pain When Pain Assessed At Rest Pain Present Pain Present Denied Pain M4 OT- IP ADL's Start: 07/13/19 17:06 Freq: Status: Active Protocol: Document 07/18/19 14:11 [facility] (Rec: 07/18/19 14:19 [facility] [id number]) OT ADL-Grooming Comments OT Grooming Comments NOt performed. OT ADL-Dressing Comments OT Dressing Comments Pt's son states that his mother would be able to assist pt for LB dressing as needed, otherwise pt able to use LB dressing equipment for needs. OT ADL-Toileting Comments OT Toileting Comments Pt's son states his mother will be able to provide assist if needed for hygiene. OT ADL-Bathing Comments OT Bathing Comments Not performed M5 OT- IP IADL's Start: 07/13/19 17:06 Freq: Status: Active Protocol: Document 07/13/19 15:48 [facility] (Rec: 07/13/19 17:43 [facility] [id number]) OT-Instrumental Activities of Daily Living Home Safety Awareness Awareness of Need for Assistance at Home Good Awareness Ability to Problem Solve Emergency Able to Problem Solve Situations Medication Management Medication Management No Deficits Identified Money Management Money Management No Deficits Identified Meal Preparation Meal Preparation Caregiver Provides Assist Business Services Assistant Business Services Assistant Caregiver Provides Assist Driving Driving Comments Pt states has not been driving since COVID -19. M7 OT- IP Mobility and Balance Start: 07/13/19 17:06 Freq: Status: Active Protocol: Document 07/18/19 14:11 [facility] (Rec: 07/18/19 14:19 [facility] [id number]) OT-Transfer Assessment Sit to and From Stand Sit to and from Stand Contact Guard Assistance Transfers Transfer Ability Contact Guard Assistance Technique Transfer Destination Bed,Chair Transfer Technique Stand Step Pivot Devices Transfer Assistive Devices Gait Belt,Front Wheeled Walker Comments Mobility Comments Able to educated pt's son with HYDROGEOLOGIST for gait belt management, transfers, and mobility needs. Pt's BP in supine 114/68 hr 117, sitting 137/77 hr 127, Standing 97/65 and 94/55 hr 138 and 162, physician and nursing notified. M8 OT- IP Objective Assessments Start: 07/13/19 17:06 Freq: Status: Active Protocol: Document 07/13/19 15:48 [facility] (Rec: 07/13/19 17:43 [facility] [id number]) OT Gross Range of Motion Upper Extremity Range of Motion Assessment Within Functional Limits OT Strength Upper Extremity Strength Assessment Within Functional Limits M9 OT- IP Assessment and Plan Start: 07/13/19 17:06 Freq: Status: Active Protocol: Document 07/18/19 14:11 [facility] (Rec: 07/18/19 14:19 [facility] [id number]) OT Summary Assessment and Plan Potential Rehabilitation Potential Good Analytic Complexity at Evaluation Low Summary OT Impairments Balance,Functional Mobility, Dressing,Toileting,Bathing, Shower Transfers,Activity Tolerance Progress Towards Goals Slow Progress due to Pain,Slow Progress due to Medical Issues Assessment Summary Pt's son in for caregiver training and able to show and demonstrate good safety to be able to assist his dad for all needs. Main barrier is pt's low BP when standing. When medically stable pt to go home with home health. Pt has a good set-up at home with transfer poles and grab bars. Goals Grooming Goal Independent Dressing Goal Independent,Fishing Worker,Sock Aid Toileting Goal Minimal Assistance Bathing Goal Minimal Assistance Toilet Transfer Goal Standby Assistance Shower Transfer Goal Standby Assistance Days to Meet Goals 3 Frequency of Treatment Frequency Of Treatment Once a Day Treatment Plan OT Treatment Plan ADL Training,Functional Mobility,Patient/Family Education,Discharge Planning Other Treatment Recommendations and Next ADLs standing and endurance, Treatment Focus shower Discharge Recommendations OT Discharge Recommendations Home with Assistance,Home Health Home Equipment Needs Shower chair Transportation Needs at Discharge Private Vehicle
[2019-07-18] MEDS: FLUDROCORTISONE 0.1 MG TABLET PO (11:59)
--- NOTE | 2019-07-18 13:53 | PT.IPTN ---
Current Diagnoses Acute pancreatitis without necrosis or infection, unspecified (07/11/19) Physical Therapy Treatment Note M2 PT-IP Current Condition Start: 07/13/19 12:05 Freq: NEEDED Status: Active Protocol: Document 07/13/19 12:07 [facility] (Rec: 07/13/19 13:09 [facility] [id number]) Physical Therapy Current Condition Current Condition Evaluation Date 07/13/19 Treatment Diagnosis increasing weakness, back pain ,sob,hyperglycemia Onset Date 07/07/19 Weight Bearing Status Weight Bearing Status Full Weight Bearing M3 PT-IP Subjective Start: 07/13/19 12:05 Freq: NEEDED Status: Active Protocol: Document 07/18/19 13:53 [facility] (Rec: 07/18/19 15:45 [facility] [id number]) Subjective Physical Therapy Visit Type Type Treatment Note Visit Start Time 13:53 Visit Stop Time 14:17 Total Visit Minutes 24 Number of GEOGRAPHY FACULTY MEMBER Visits 2 Physical Therapy Visit Comments Patient Comments Pt just returned to chair after using BR but agreeable to do therapy. Therapy Pain Assessment Pain When Pain Assessed During Mobility Pain Present Pain Present Pain Reported Location Back Scale Used pain scale not stated Description Chronic Pain Management Techniques Modification of Treatment,Re- positioning M4 PT-IP Mobility and Gait Start: 07/13/19 12:05 Freq: NEEDED Status: Active Protocol: Document 07/18/19 13:53 [facility] (Rec: 07/18/19 15:45 [facility] [id number]) PT-Transfer Assessment Sit to and From Stand Sit to and from Stand Contact Guard Assistance,1 Person Assistance,Use of Upper Extremities Equipment Transfer Assistive Device Gait Belt,Front Wheeled Walker Orthotic/Prosthetic Devices or Brace: No Transfers Transfer Destination Chair Transfer Technique pt ambulated using FWW Transfer Ability Level of Assist Contact Guard Assistance,Use of Upper Extremities Comments Mobility Comments BP in sitting before tx 115/61 , BP in standing 93/51, pt ambulated to sink to wash face and hands. Pt required SBA for standing balance. Pt then ambulate ~60ft w/FWW/CGA. Pt BP after activity 110/51, pt sat in chair with use of UE's requiring CGA. Pt BP in sitting after activity 116/77. Left pt in chair with all needs within reach. Gait Assessment Gait Gait Assistance Required: Contact Guard Assist,1 Person Assist Distance (Feet) 60 Able to Maintain Weight Bearing Status Yes During Gait Assistive Devices Assistive Device Gait Belt,Front Wheeled Walker Gait Deviations General Gait Pattern Antalgic,Decreased Stride Length,Decreased Feet Clearance,Wide Based Gait Factors Limiting Gait Function Factors Limiting Gait Function Decreased Activity Tolerance, Decreased Strength,Limited Range of Motion,Pain,Poor Balance Comments Gait Comments pls refer to mobility section for details M5 PT-IP Objective Assessments Start: 07/13/19 12:05 Freq: NEEDED Status: Active Protocol: Document 07/13/19 12:07 [facility] (Rec: 07/13/19 13:09 [facility] [id number]) Orientation Orientation/Cognition Level of Alertness Alert Safety Awareness Understands Safety Issues Gross Range of Motion Upper Extremity ROM Assessment Within Functional Limits Lower Extremity ROM Assessment Within Functional Limits Strength Upper Extremity Strength Assessment Within Functional Limits Lower Extremity Strength Assessment Within Functional Limits Coordination Assessment Gross Coordination Gross Coordination WNL Sensation Assessment Sensation Gross Sensation WNL Muscle Tone Muscle Tone WNL Yes M6 PT-IP Treatment Start: 07/13/19 12:05 Freq: NEEDED Status: Active Protocol: Document 07/18/19 13:53 [facility] (Rec: 07/18/19 15:45 [facility] [id number]) Physical Therapy Treatment Exercises Exercises Seated Knee Flexion/Extension Other Treatments Other Treatment Performed seated marches M7 PT-IP Assessment and Plan Start: 07/13/19 12:05 Freq: NEEDED Status: Active Protocol: Document 07/18/19 13:53 [facility] (Rec: 07/18/19 15:45 [facility] [id number]) PT Summary Assessment and Plan Summary Impairments Pain,ROM,Strength,Balance, Coordination,Sensation,Tone, Cognition,Bed Mobility, Transfers,Gait,Activity Tolerance Progress Towards Goals Slow Progress due to Medical Issues,Slow Progress due to Activity Tolerance Assessment Summary Monitored pt BP during tx, pls see mobility section. Pt continues to require CGA for sit-stand and gait. Pt will wants to return home when medically stable and will have son to assist him at home. Goals Bed Mobility Goal Independent Transfer Goal Standby Assistance Gait Goal Standby Assistance Gait Distance 100 Days to Meet Goals 5 Frequency of Treatment Frequency Of Treatment Twice a Day Treatment Plan Physical Therapy Treatment Plan Bed Mobility Training,Transfer Training,Gait Training, Therapeutic Exercise,Balance Retraining,Discharge Planning Other Recommendations and Next Treatment ambulation, bed mobility. Focus Recommendations To Nursing Amount of Assist Needed 1 Person Assist Discharge Recommendations PT Discharge Recommendations Home with Assistance,Home Health,SNF Rehab Transportation Needs at Discharge Private Vehicle
[2019-07-18] MEDS: CEFTRIAXONE 2 GM/50 ML FROZ.PIGGY IV (16:55)
[2019-07-18] MEDS: WARFARIN 5 MG TABLET PO (18:07)
--- NOTE | 2019-07-18 18:21 | PM.PN.1 ---
Subjective Subjective Date Patient Seen: 07/18/19 Interval history: Patient has no complaints of pain. He is confident that his son can assist when her returns home. He is still unsteady with ambulation Patient is markedly orthostatic when standing. He notes some lightheadedness as well. Exam Vital Signs (past 8 hours): - 07/18/19 12:00 07/18/19 16:00 Temperature 98.6 F 96.5 F L Pulse Rate 95 H 96 H Respiratory Rate 18 20 Blood Pressure 104/59 L 91/52 L Pulse Oximetry 96 98 Oxygen Delivery Method Room Air Oxygen Flow Rate 0 Narrative Exam Narrative: Pleasant Obese Male in NAD Lungs: decreased breath sounds but clear to auscultation CV: RRR nl Sl S2 Abd: obese, soft/ non tender Ext; 3+ pitting edema bilaterally Objective Labs Result Diagrams: 07/15/19 05:35 07/15/19 05:35 Labs: Laboratory Results - last 24 hr 07/18/19 07/18/19 07/18/19 06:44 07:15 07:50 Random Cortisol 9.03 19.4 21.6 Assessment & Plan Assessment & Plan narrative: Orthostatic Hypotension -Cotrosyn Stim Test is normal -No evidence of adrenal insufficiency -Suspect autonomic insufficiency -will start flourinef .1 mg daily, and remeasure Pancreatitis -no further abdominal pain -tolerating meals well Weakness/freq falls -likely secondary to orthostatic hypotension Paroxysmal Atrial fibrillation -Heart Rate Controlled -Metoprolol D/C'd secondary to orthostatic hypotension Hypothyroidism -Continue Lthyroxine Type 2 Diabetes -continue insulin Lower extremity edema -Lasix on hold Home when no longer orthstatic and symptomatic Quality VTE Deep Vein Thrombosis/Pulmonary Embolism Present on Admission: No
[2019-07-18 21:01] LABS: Prothrombin Time 34.6 SECONDS (10.1-12.7)
[2019-07-19] VITALS (10 sets, daily range): BP systolic 78–124; BP diastolic 40–75; PULSE 73–118; RESP 16–20; TEMP 35.9–36.4; O2SAT 97–100
--- NOTE | 2019-07-19 02:18 | PC.NURSE ---
Addendum entered by Yanely Brown R.N. 07/19/19 06:07: Up to bathroom x 2 during the night and passed flatus but no BM. Walks well with walker but is slow. Initially unsteady when getting up to standing position but denies any dizziness or lightheadedness either at rest or with activity even though having postural hypotension. Original Note: Patient is alert and oriented. Very MODOC and has no hearing aids. HR irregularly irregular with rate in 70's; hx of afib. Denies nausea. BT present and is passing flatus but has not had a BM since 07/14. Voiding per urinal; denies dysuria, frequency or urgency. Able to move self in bed. Up with walker and 1 assist; is weak and very slow in movement related to chronic back pain. Generalized edema with increasing edema in bilateral LE. Skin on anterior bilateral LE is erythemic and appears to be darker pink tonight. Denies pain at rest but any movement increases pain but is tolerable if he goes slowly; declines need for pain medication. Wearing bilateral calf SCD's. Fall risk score is high and bed alarm is activated.
[2019-07-19] MEDS: LEVOTHYROXINE 50 MCG TABLET PO (05:32)
[2019-07-19] MEDS: BISACODYL 5 MG TABLET 10 MG PO (09:02)
[2019-07-19] MEDS: DOCUSATE 100 MG CAPSULE PO ×2 (09:02→21:50)
[2019-07-19] MEDS: TRAMADOL 50 MG TABLET 100 MG PO ×2 (09:02→21:51)
[2019-07-19] MEDS: SODIUM CHLORIDE 0.9% FLUSH 10 ML IV ×2 (09:02→21:49)
[2019-07-19] MEDS: levoFLOXacin 250 MG TABLET PO (09:02)
[2019-07-19] MEDS: FLUDROCORTISONE 0.1 MG TABLET PO (09:02)
[2019-07-19] MEDS: FERROUS SULFATE 325 MG TABLET PO (09:02)
[2019-07-19] MEDS: INSULIN GLARGINE 100 UNIT/ML 3ML PEN 25 UNIT SUBCUT ×2 (09:03→21:48)
[2019-07-19] MEDS: INSULIN ASPART 100 UNIT/ML INSULN PEN 7 UNIT SUBCUT ×3 (09:03→17:12)
--- NOTE | 2019-07-19 11:21 | PT.IPTN ---
Current Diagnoses Acute pancreatitis without necrosis or infection, unspecified (07/11/19) Physical Therapy Treatment Note M2 PT-IP Current Condition Start: 07/13/19 12:05 Freq: NEEDED Status: Active Protocol: Document 07/13/19 12:07 [facility] (Rec: 07/13/19 13:09 [facility] [id number]) Physical Therapy Current Condition Current Condition Evaluation Date 07/13/19 Treatment Diagnosis increasing weakness, back pain ,sob,hyperglycemia Onset Date 07/07/19 Weight Bearing Status Weight Bearing Status Full Weight Bearing M3 PT-IP Subjective Start: 07/13/19 12:05 Freq: NEEDED Status: Active Protocol: Document 07/19/19 11:21 [facility] (Rec: 07/19/19 12:41 [facility] [email or web address]) Subjective Physical Therapy Visit Type Type Treatment Note Visit Start Time 11:21 Visit Stop Time 11:39 Total Visit Minutes 18 Number of FOCUSER Visits 3 Physical Therapy Visit Comments Patient Comments Pt agreeable to do therapy. Therapy Pain Assessment Pain When Pain Assessed At Rest Pain Present Pain Present Pain Reported M4 PT-IP Mobility and Gait Start: 07/13/19 12:05 Freq: NEEDED Status: Active Protocol: Document 07/19/19 11:21 [facility] (Rec: 07/19/19 12:41 [facility] [email or web address]) PT-Transfer Assessment Sit to and From Stand Sit to and from Stand Contact Guard Assistance,1 Person Assistance,Use of Upper Extremities Equipment Transfer Assistive Device Gait Belt,Front Wheeled Walker Orthotic/Prosthetic Devices or Brace: No Transfers Transfer Destination Chair Transfer Ability Level of Assist Contact Guard Assistance,Use of Upper Extremities Comments Mobility Comments BP in sitting before tx 115/68 , Pt was able to scoot to edge of chair SBA and stood from chair with use of UE's requiring CGA. Pt with decreased BP in standing BP in standing 79/49, [place] 58, [place] 118. Pt sat back down in chair with CGA, pt reported feeling weak and shaky but denies feeling dizzy. Pt BP in sitting at end of tx, 121/71, MAP 90, [place] 90. Left pt in chair with all needs within reach and RN present. Gait Assessment Comments Gait Comments unable due to drop in BP upon standing. M5 PT-IP Objective Assessments Start: 07/13/19 12:05 Freq: NEEDED Status: Active Protocol: Document 07/13/19 12:07 [facility] (Rec: 07/13/19 13:09 [facility] [id number]) Orientation Orientation/Cognition Level of Alertness Alert Safety Awareness Understands Safety Issues Gross Range of Motion Upper Extremity ROM Assessment Within Functional Limits Lower Extremity ROM Assessment Within Functional Limits Strength Upper Extremity Strength Assessment Within Functional Limits Lower Extremity Strength Assessment Within Functional Limits Coordination Assessment Gross Coordination Gross Coordination WNL Sensation Assessment Sensation Gross Sensation WNL Muscle Tone Muscle Tone WNL Yes M6 PT-IP Treatment Start: 07/13/19 12:05 Freq: NEEDED Status: Active Protocol: Document 07/19/19 11:21 [facility] (Rec: 07/19/19 12:41 [facility] [id number]) Physical Therapy Treatment Exercises Exercises Ankle Pumps,Seated Knee Flexion/Extension M7 PT-IP Assessment and Plan Start: 07/13/19 12:05 Freq: NEEDED Status: Active Protocol: Document 07/19/19 11:21 [facility] (Rec: 07/19/19 12:41 [facility]B [id number]) PT Summary Assessment and Plan Summary Progress Towards Goals Slow Progress due to Medical Issues Assessment Summary Pt unable to ambulate due to drop in BP of 79/41 upon standing. Goals Bed Mobility Goal Independent Transfer Goal Standby Assistance Gait Goal Standby Assistance Gait Distance 100 Days to Meet Goals 5 Frequency of Treatment Frequency Of Treatment Twice a Day Treatment Plan Physical Therapy Treatment Plan Bed Mobility Training,Transfer Training,Gait Training, Therapeutic Exercise,Balance Retraining,Discharge Planning Other Recommendations and Next Treatment ambulation, bed mobility, Focus MONITOR BP Recommendations To Nursing Amount of Assist Needed 1 Person Assist Discharge Recommendations PT Discharge Recommendations Home with Assistance,Home Health,SNF Rehab Transportation Needs at Discharge Private Vehicle
[2019-07-19] MEDS: INSULIN ASPART 100 UNIT/ML INSULN PEN SUBCUT ×2 (12:11→17:12)
--- NOTE | 2019-07-19 13:14 | PT.IPTN ---
Current Diagnoses Acute pancreatitis without necrosis or infection, unspecified (07/11/19) Physical Therapy Treatment Note M2 PT-IP Current Condition Start: 07/13/19 12:05 Freq: NEEDED Status: Active Protocol: Document 07/13/19 12:07 [facility] (Rec: 07/13/19 13:09 [facility] [id number]) Physical Therapy Current Condition Current Condition Evaluation Date 07/13/19 Treatment Diagnosis increasing weakness, back pain ,sob,hyperglycemia Onset Date 07/07/19 Weight Bearing Status Weight Bearing Status Full Weight Bearing M3 PT-IP Subjective Start: 07/13/19 12:05 Freq: NEEDED Status: Active Protocol: Document 07/19/19 13:14 [facility] (Rec: 07/19/19 14:13 [facility]B [email or web address]) Subjective Physical Therapy Visit Type Type Treatment Note Visit Start Time 13:14 Visit Stop Time 13:25 Total Visit Minutes 11 Number of CREDIT ADMINISTRATOR Visits 4 Physical Therapy Visit Comments Patient Comments Pt agreeable to do therapy. Therapy Pain Assessment Pain When Pain Assessed At Rest Pain Present Pain Present Pain Reported M4 PT-IP Mobility and Gait Start: 07/13/19 12:05 Freq: NEEDED Status: Active Protocol: Document 07/19/19 13:14 [facility] (Rec: 07/19/19 14:13 [facility] [email or web address]) PT-Transfer Assessment Sit to and From Stand Sit to and from Stand Contact Guard Assistance,1 Person Assistance,Use of Upper Extremities Equipment Transfer Assistive Device Gait Belt,Front Wheeled Walker Orthotic/Prosthetic Devices or Brace: No Transfers Transfer Destination Toilet Transfer Ability Level of Assist Contact Guard Assistance,Use of Upper Extremities Comments Mobility Comments Pt performed AP in chair, pt had immediate urge to have BM. CREDIT ADMINISTRATOR suggested use of BSC due to BP and pt refused, REWINDER was called to assist with pt ambulating to BR. Pt ambulated to BR SBA-CGA with SBA and use of hand rail to sit. Pt left on toilet with call light , REWINDER informed. Gait Assessment Gait Gait Assistance Required: Standby Assistance,Contact Guard Assist,1 Person Assist Distance (Feet) 5 Assistive Devices Assistive Device Gait Belt,Front Wheeled Walker Gait Deviations General Gait Pattern Antalgic,Decreased Stride Length,Decreased Feet Clearance,Wide Based Gait Factors Limiting Gait Function Factors Limiting Gait Function Decreased Activity Tolerance, Decreased Strength,Limited Range of Motion,Pain,Poor Balance M5 PT-IP Objective Assessments Start: 07/13/19 12:05 Freq: NEEDED Status: Active Protocol: Document 07/13/19 12:07 [facility] (Rec: 07/13/19 13:09 [facility] [id number]) Orientation Orientation/Cognition Level of Alertness Alert Safety Awareness Understands Safety Issues Gross Range of Motion Upper Extremity ROM Assessment Within Functional Limits Lower Extremity ROM Assessment Within Functional Limits Strength Upper Extremity Strength Assessment Within Functional Limits Lower Extremity Strength Assessment Within Functional Limits Coordination Assessment Gross Coordination Gross Coordination WNL Sensation Assessment Sensation Gross Sensation WNL Muscle Tone Muscle Tone WNL Yes M6 PT-IP Treatment Start: 07/13/19 12:05 Freq: NEEDED Status: Active Protocol: Document 07/19/19 13:14 [facility] (Rec: 07/19/19 14:13 [facility] [email or web address]) Physical Therapy Treatment Exercises Exercises Ankle Pumps M7 PT-IP Assessment and Plan Start: 07/13/19 12:05 Freq: NEEDED Status: Active Protocol: Document 07/19/19 13:14 [facility] (Rec: 07/19/19 14:13 [facility] [email or web address]) PT Summary Assessment and Plan Summary Impairments Pain,ROM,Strength,Balance, Coordination,Sensation,Tone, Cognition,Bed Mobility, Transfers,Gait,Activity Tolerance Progress Towards Goals Slow Progress due to Medical Issues Assessment Summary Pt able to stand from chair SBA and ambulate to BR SBA-CGA , pt sat on toilet with SBA and use of guard rails. BP was not taken due to urgent need to have BM. Goals Bed Mobility Goal Independent Transfer Goal Standby Assistance Gait Goal Standby Assistance Gait Distance 100 Days to Meet Goals 5 Frequency of Treatment Frequency Of Treatment Twice a Day Treatment Plan Physical Therapy Treatment Plan Bed Mobility Training,Transfer Training,Gait Training, Therapeutic Exercise,Balance Retraining,Discharge Planning Other Recommendations and Next Treatment ambulation, bed mobility, Focus MONITOR BP Recommendations To Nursing Amount of Assist Needed 1 Person Assist Discharge Recommendations PT Discharge Recommendations Home with Assistance,Home Health,SNF Rehab Transportation Needs at Discharge Private Vehicle
--- NOTE | 2019-07-19 14:50 | PC.NURSE ---
Patient up in chair for most of shift as that is where he is most comfortable. Patient remains orthostatic today (see vital signs and P.T. notes), denies dizziness but states he does feel weak all over at times. 1 person assistance with walker to bathroom. Patient passing lots of gas today and hoping to have BM, voiding without difficulty. Patient states his chronic back pain is well managed at this time. Call light within reach, patient calls appropriately for his needs.
--- NOTE | 2019-07-19 16:10 | OT.IP.TRT ---
Current Diagnoses Acute pancreatitis without necrosis or infection, unspecified (07/11/19) Occupational Therapy Treatment Note M2 OT-IP Current Condition Start: 07/13/19 17:06 Freq: Status: Active Protocol: Document 07/13/19 15:48 [facility] (Rec: 07/13/19 17:43 [facility] [id number]) Occupational Therapy Current Condition Current Condition Evaluation Date 07/13/19 Treatment Diagnosis Acute pancreatitis Diagnosis Onset Date 07/11/19 Weight Bearing Status Weight Bearing Status Weight Bear as Tolerated M3 OT- IP Subjective and Pain Start: 07/13/19 17:06 Freq: Status: Active Protocol: Document 07/19/19 17:22 [facility] (Rec: 07/19/19 17:30 [facility] [id number]) OT- Subjective Occupational Therapy Visit Type Type Treatment Note Visit Start Time 16:10 Visit Stop Time 16:37 Total Visit Minutes 27 Occupational Therapy Visit Comments Patient Comments Pt wanting to call his family as having trouble with use of hospital phone. Ended up letting pt know to ask nursing to call his family and then transfer the call to his room. Able to let pt use therapist cell phone to call home. Pt wanting to use the bathroom . Bed alarm on pt's tray table and asked nursing if still needing to be used, nursing states no not needed. In addition pt is able to show good safety to be able to call for assist as needed. Patient/Caregiver Goals To go home when medically stable. OT Pain Assessment Pain When Pain Assessed At Rest Pain Present Pain Present Denied Pain M4 OT- IP ADL's Start: 07/13/19 17:06 Freq: Status: Active Protocol: Document 07/19/19 17:22 [facility] (Rec: 07/19/19 17:30 [facility] [id number]) OT ADL-Grooming General Evaluation Grooming Ability Standby Assistance Comments OT Grooming Comments While sitting after set-up. OT ADL-Toileting General Evaluation Toileting Ability Maximum Assistance Areas Needing Assistance Perform Perineal Hygiene Comments OT Toileting Comments At home pt states use of HHSP to help clean off , therefore therapist needing to assist for hygiene needs. OT ADL-Bathing Comments OT Bathing Comments Not performed M7 OT- IP Mobility and Balance Start: 07/13/19 17:06 Freq: Status: Active Protocol: Document 07/19/19 17:22 [facility] (Rec: 07/19/19 17:30 [facility] [id number]) OT-Transfer Assessment Sit to and From Stand Sit to and from Stand Standby Assistance Transfers Transfer Ability Contact Guard Assistance Technique Transfer Destination Chair,Toilet Transfer Technique Stand Step Pivot Devices Transfer Assistive Devices Gait Belt,Front Wheeled Walker Comments Mobility Comments Pt mainly just CGA as pt having LOW BP throughout the day when standing. During OT session Sitting 1 122 /58, right after getting back from the bathroom while sitting in the recliner 122/80 and after sitting for two minutes 116/61. SBA for pt to lower and raise up with use of grab bar on his own with close SBA. Pt noted good safety and control to get up and down from the toilet. Able to bring in larger BSC just in case pt not able to walk into and out of the bathroom with FWW and if not feeling well due to low low BP. Pt is aware to call nursing for needs. OT- Balance Assessment Sitting Balance and Reactions Static Sitting Balance Ability Good Dynamic Sitting Balance Ability Fair Standing Balance and Reactions Static Standing Balance Ability Fair M8 OT- IP Objective Assessments Start: 07/13/19 17:06 Freq: Status: Active Protocol: Document 07/13/19 15:48 [facility] (Rec: 07/13/19 17:43 [facility] [id number]) OT Gross Range of Motion Upper Extremity Range of Motion Assessment Within Functional Limits OT Strength Upper Extremity Strength Assessment Within Functional Limits M9 OT- IP Assessment and Plan Start: 07/13/19 17:06 Freq: Status: Active Protocol: Document 07/19/19 17:22 [facility] (Rec: 07/19/19 17:30 [facility] [id number]) OT Summary Assessment and Plan Potential Rehabilitation Potential Good Analytic Complexity at Evaluation Low Summary OT Impairments Balance,Functional Mobility, Dressing,Toileting,Bathing, Shower Transfers,Activity Tolerance Progress Towards Goals Slow Progress due to Medical Issues Assessment Summary Pt main barrier continues to be low BP while standing. Pt continues to improve with increased stability on his feet and better control to come to stand and sitting back down now. Continue to suggest home with family when medically stable. Goals Grooming Goal Independent Dressing Goal Independent,Recruitment Officer,Sock Aid Toileting Goal Minimal Assistance Bathing Goal Minimal Assistance Toilet Transfer Goal Standby Assistance Shower Transfer Goal Standby Assistance Days to Meet Goals 3 Frequency of Treatment Frequency Of Treatment Once a Day Treatment Plan OT Treatment Plan ADL Training,Functional Mobility,Patient/Family Education,Discharge Planning Other Treatment Recommendations and Next ADLs standing and enduracne, Treatment Focus shower Discharge Recommendations OT Discharge Recommendations Home with Assistance,Home Health Home Equipment Needs Shower chair Transportation Needs at Discharge Private Vehicle
--- NOTE | 2019-07-19 16:52 | PM.PN.1 ---
Subjective Subjective Date Patient Seen: 07/19/19 Interval history: Patient continues to have symptomatic orthostatic hypotension. HIs systolic pressure dropped to 80 systolic with standing. He was not dizzy but felt unsteady on his feet. Patient has no abdominal pain, he continues to have significant lower extremity edema Exam Vital Signs (past 8 hours): - 07/19/19 12:00 07/19/19 15:23 Temperature 96.9 F L 97.2 F L Pulse Rate 77 101 H Respiratory Rate 18 20 Blood Pressure 106/69 124/57 L Pulse Oximetry 97 100 Oxygen Delivery Method Room Air Oxygen Flow Rate 0 Narrative Exam Narrative: Pleasant elderly male in no acute distress Lungs: Clear to auscultation CV: RRR nl Sl S2 ABd: soft/ non tender/ non distended Ext 3+ pitting edema bilaterally Objective Labs Result Diagrams: 07/15/19 05:35 07/15/19 05:35 Labs: Laboratory Results - last 24 hr 07/18/19 20:46 PT 34.6 H INR 3.0 H Assessment & Plan Assessment & Plan narrative: Assessment & Plan narrative: Orthostatic Hypotension -Cotrosyn Stim Test is normal -No evidence of adrenal insufficiency -Suspect autonomic insufficiency -will start flourinef .1 mg daily, and remeasure - increasing edema, and no improvement, will add midodrine, d/c flourinef Pancreatitis -no further abdominal pain -tolerating meals well Weakness/freq falls -likely secondary to orthostatic hypotension Paroxysmal Atrial fibrillation -Heart Rate Controlled -Metoprolol D/C'd secondary to orthostatic hypotension Hypothyroidism -Continue Lthyroxine Type 2 Diabetes -continue insulin Lower extremity edema -Lasix on hold Chronic Kidney Disease Home when no longer orthstatic and symptomatic Quality VTE Deep Vein Thrombosis/Pulmonary Embolism Present on Admission: No
[2019-07-19] MEDS: MIDODRINE HCL 5 MG TABLET PO (17:17)
[2019-07-19] MEDS: WARFARIN 5 MG TABLET PO (17:25)
--- NOTE | 2019-07-19 19:02 | PC.NURSE ---
Assumed care of pt at 1500. Pt sitting up in chair during bedside hand-off report. Noted edema to BLE and hands. Enc to elevate legs to decrease edema. Pt reports headache. BP and pulse assessed, BP 105/66 Pulse 88. Cool wash cloth applied to the head. Declines analgesics. Legs elevated again to help fluid return to vascular space.
[2019-07-20 00:14] VITALS: BP 108/61; BP 115/67; BP 137/68; PULSE 118; PULSE 129; PULSE 93; RESP 18; TEMP 37.2; O2SAT 97
--- NOTE | 2019-07-20 00:15 | PC.NURSE ---
Addendum entered by Yanely Brown R.N. 07/20/19 05:38: States back pain is currently 2/10 but requested/medicated with Tramadol to get ready for the day. Original Note: Patient is alert and oriented. [place] and does not have hearing aids. Breath sounds CTA with RA sat of 97%. HR irregular; hx of afib. BP still dropping with position change but not as severely although HR did increase to 129 when standing. Denies dizziness or lightheadedness and denies any recent falls. Denies nausea. BT present and passing flatus but has not had BM since 07/14. Voiding per urinal; urine is clear yellow. Able to move self in bed. Gets up with walker and 1 assist; is initially unsteady but once up is able to walk but very slow in movements. No change in skin condition. Generalized/scrotal edema and bilateral LE are 3-4+. States back pain currently 3/10 (had Tramadol at 2151) but declines need for any additional pain meds. Wearing bilateral SCD's. Fall risk score is high and bed alarm is activated.
[2019-07-20 04:14] VITALS: BP 140/67; PULSE 101; RESP 18; TEMP 36.8; O2SAT 97
[2019-07-20] MEDS: MIDODRINE HCL 5 MG TABLET PO ×2 (05:34→12:17)
[2019-07-20] MEDS: LEVOTHYROXINE 50 MCG TABLET PO (05:34)
[2019-07-20] MEDS: TRAMADOL 50 MG TABLET 100 MG PO (05:37)
[2019-07-20 05:57] LABS: BUN Creatinine Ratio 18.5 (6-22); Blood Urea Nitrogen 22 mg/dL (9-20); Calcium 8.5 mg/dL (8.4-10.2); Carbon Dioxide 23 mmol/L (22-32); Chloride 109 mmol/L (98-107); Estimated Glomerular Filt Rate 58.4 mL/min (>60); Glucose 149 mg/dL (80-110); HEMOLYSIS < 15 (0-50); Potassium 4.4 mmol/L (3.4-5.1); Sodium 138 mmol/L (137-145)
[2019-07-20 08:12] VITALS: BP 122/68; PULSE 90; RESP 18; TEMP 36.1; O2SAT 99
[2019-07-20] MEDS: INSULIN ASPART 100 UNIT/ML INSULN PEN SUBCUT ×2 (08:12→12:17)
[2019-07-20] MEDS: INSULIN GLARGINE 100 UNIT/ML 3ML PEN 25 UNIT SUBCUT (08:13)
[2019-07-20] MEDS: INSULIN ASPART 100 UNIT/ML INSULN PEN 7 UNIT SUBCUT ×2 (08:13→12:17)
[2019-07-20] MEDS: SODIUM CHLORIDE 0.9% FLUSH 10 ML IV (08:14)
[2019-07-20] MEDS: levoFLOXacin 250 MG TABLET PO (08:14)
[2019-07-20] MEDS: FERROUS SULFATE 325 MG TABLET PO (08:16)
[2019-07-20] MEDS: BISACODYL 5 MG TABLET 10 MG PO (08:16)
[2019-07-20] MEDS: DOCUSATE 100 MG CAPSULE PO (08:16)
--- NOTE | 2019-07-20 09:59 | OT.IP.TRT ---
Current Diagnoses Acute pancreatitis without necrosis or infection, unspecified (07/11/19) Occupational Therapy Treatment Note M2 OT-IP Current Condition Start: 07/13/19 17:06 Freq: Status: Active Protocol: Document 07/13/19 15:48 [facility] (Rec: 07/13/19 17:43 [facility] [id number]) Occupational Therapy Current Condition Current Condition Evaluation Date 07/13/19 Treatment Diagnosis Acute pancreatitis Diagnosis Onset Date 07/11/19 Weight Bearing Status Weight Bearing Status Weight Bear as Tolerated M3 OT- IP Subjective and Pain Start: 07/13/19 17:06 Freq: Status: Active Protocol: Document 07/20/19 09:52 [facility] (Rec: 07/20/19 09:59 [facility] [id number]) OT- Subjective Occupational Therapy Visit Type Type Treatment Note Visit Start Time 08:55 Visit Stop Time 09:49 Total Visit Minutes 56 Occupational Therapy Visit Comments Patient Comments Pt on the toilet and nursing present. Pt wanting to shower . Patient/Caregiver Goals To go home. OT Pain Assessment Pain When Pain Assessed At Rest Pain Present Pain Present Denied Pain M4 OT- IP ADL's Start: 07/13/19 17:06 Freq: Status: Active Protocol: Document 07/20/19 09:52 [facility] (Rec: 07/20/19 09:59 [facility] [id number]) OT ADL-Grooming General Evaluation Grooming Ability Standby Assistance Comments OT Grooming Comments While sitting after set-up. OT ADL-Dressing General Eval Areas Needing Assistance Pants/Shorts,Shoes Assistive Devices Dressing Assistive Devices Property Maintenance Technician Comments OT Dressing Comments Pt still has IN line in his arm and not able to get his long sleeve shirt on, therefore not wanting to get his pants up all the way yet as he wears suspenders and just wanting to sit with his pants pulled up over his knees and gown in place for now, nursing aware. OT ADL-Toileting General Evaluation Toileting Ability Maximum Assistance Areas Needing Assistance Perform Perineal Hygiene OT ADL-Bathing Bathing Type Bathing Type Shower General Evaluation Bathing Ability Moderate Assistance Devices Bathing Equipment Hand Held Shower Sprayer, Shower Chair with Arms,Grab Bars Comments OT Bathing Comments At this time pt needing to sit for showering needs and has a built in seat at home to use. Assist to wash/dry his back and legs. Pt states his can assist at home and not wanting a bath aid to come to the home. M5 OT- IP IADL's Start: 07/13/19 17:06 Freq: Status: Active Protocol: Document 07/13/19 15:48 [facility] (Rec: 07/13/19 17:43 [facility] [id number]) OT-Instrumental Activities of Daily Living Home Safety Awareness Awareness of Need for Assistance at Home Good Awareness Ability to Problem Solve Emergency Able to Problem Solve Situations Medication Management Medication Management No Deficits Identified Money Management Money Management No Deficits Identified Meal Preparation Meal Preparation Caregiver Provides Assist Spring Coiler Hand Spring Coiler Hand Caregiver Provides Assist Driving Driving Comments Pt states has not been driving since COVID -19. M6 OT- IP Functional Cognition Start: 07/13/19 17:06 Freq: Status: Active Protocol: Document 07/20/19 09:52 [facility] (Rec: 07/20/19 09:59 [facility] [id number]) OT- Vision and Hearing OT- Vision Assessment Vision Assessment Comments Pt at baseline. Pt at times tends to repeat what his just said a few minutes ago. M7 OT- IP Mobility and Balance Start: 07/13/19 17:06 Freq: Status: Active Protocol: Document 07/20/19 09:52 [facility] (Rec: 07/20/19 09:59 [facility] [id number]) OT-Transfer Assessment Sit to and From Stand Sit to and from Stand Standby Assistance Transfers Transfer Ability Standby Assistance,Contact Guard Assistance Technique Transfer Destination Bed,Bedside Commode,Toilet Transfer Technique Stand Step Pivot Devices Transfer Assistive Devices Gait Belt,Front Wheeled Walker Comments Mobility Comments CGA while stepping over the threshold, otherwise SBA with FWW. Pt not complaining of being dizzy or weak at this time. OT- Balance Assessment Sitting Balance and Reactions Static Sitting Balance Ability Good Dynamic Sitting Balance Ability Fair Standing Balance and Reactions Static Standing Balance Ability Fair M8 OT- IP Objective Assessments Start: 07/13/19 17:06 Freq: Status: Active Protocol: Document 07/13/19 15:48 [facility] (Rec: 07/13/19 17:43 [facility] [id number]) OT Gross Range of Motion Upper Extremity Range of Motion Assessment Within Functional Limits OT Strength Upper Extremity Strength Assessment Within Functional Limits M9 OT- IP Assessment and Plan Start: 07/13/19 17:06 Freq: Status: Active Protocol: Document 07/20/19 09:52 [facility] (Rec: 07/20/19 09:59 [facility] [id number]) OT Summary Assessment and Plan Potential Rehabilitation Potential Good Analytic Complexity at Evaluation Low Summary OT Impairments Balance,Functional Mobility, Dressing,Toileting,Bathing, Shower Transfers,Activity Tolerance Progress Towards Goals Progressing Toward Goals Assessment Summary Pt looking to go home today and that a friend to come and pick him up. Discharge Recommendations OT Discharge Recommendations Home with Assistance,Home Health Transportation Needs at Discharge Private Vehicle
--- NOTE | 2019-07-20 13:15 | PT.IPTN ---
Current Diagnoses Acute pancreatitis without necrosis or infection, unspecified (07/11/19) Physical Therapy Treatment Note M2 PT-IP Current Condition Start: 07/13/19 12:05 Freq: NEEDED Status: Active Protocol: Document 07/13/19 12:07 [facility] (Rec: 07/13/19 13:09 [facility] [id number]) Physical Therapy Current Condition Current Condition Evaluation Date 07/13/19 Treatment Diagnosis increasing weakness, back pain ,sob,hyperglycemia Onset Date 07/07/19 Weight Bearing Status Weight Bearing Status Full Weight Bearing M3 PT-IP Subjective Start: 07/13/19 12:05 Freq: NEEDED Status: Active Protocol: Document 07/20/19 10:15 [facility] (Rec: 07/20/19 13:15 [facility] [id number]) Subjective Physical Therapy Visit Type Type Treatment Note Visit Start Time 10:15 Visit Stop Time 10:40 Total Visit Minutes 25 Number of ESTATE PLANNING PAR[place] Visits 0 Physical Therapy Visit Comments Patient Comments Pt agreeable to do therapy. Therapy Pain Assessment Pain When Pain Assessed At Rest Pain Present Pain Present Pain Reported Location Back Scale Used pain scale not stated Description Chronic Pain Management Techniques Modification of Treatment,Re- positioning M4 PT-IP Mobility and Gait Start: 07/13/19 12:05 Freq: NEEDED Status: Active Protocol: Document 07/20/19 10:15 [facility] (Rec: 07/20/19 13:15 [facility] [id number]) PT-Transfer Assessment Sit to and From Stand Sit to and from Stand Standby Assistance,1 Person Assistance,Use of Upper Extremities Equipment Transfer Assistive Device Gait Belt,Front Wheeled Walker Orthotic/Prosthetic Devices or Brace: No Transfers Transfer Destination Chair Transfer Ability Level of Assist Contact Guard Assistance,Use of Upper Extremities Comments Mobility Comments Pt was in chair upon PT arrival. Had OT session half an hour ago. Pt agreeable to mobilize with PT. BP in seated = 104/63 95% SpO2. Pt then stood up with UE pushed off from armrests. He was able to stand unsupported for 20 secs. He then proceed to amb to hallway with SBA and FWW. Pt overall amb slowly and heavily WB through UEs d/t leg weakness. He was able to amb 200 ft and needed a 15 secs standing break towards the end of gait training. Pt walked back to chair and safely transferred himself with proper hand placemetns. Call ligth placed within reach. BP at 124/87 Gait Assessment Gait Gait Assistance Required: Standby Assistance,Contact Guard Assist,1 Person Assist Distance (Feet) 200 Assistive Devices Assistive Device Gait Belt,Front Wheeled Walker Gait Deviations General Gait Pattern Antalgic,Decreased Stride Length,Decreased Feet Clearance,Wide Based Gait Factors Limiting Gait Function Factors Limiting Gait Function Decreased Activity Tolerance, Decreased Strength,Limited Range of Motion,Pain,Poor Balance Comments Gait Comments see mobility comments M5 PT-IP Objective Assessments Start: 07/13/19 12:05 Freq: NEEDED Status: Active Protocol: Document 07/13/19 12:07 [facility] (Rec: 07/13/19 13:09 [facility] [id number]) Orientation Orientation/Cognition Level of Alertness Alert Safety Awareness Understands Safety Issues Gross Range of Motion Upper Extremity ROM Assessment Within Functional Limits Lower Extremity ROM Assessment Within Functional Limits Strength Upper Extremity Strength Assessment Within Functional Limits Lower Extremity Strength Assessment Within Functional Limits Coordination Assessment Gross Coordination Gross Coordination WNL Sensation Assessment Sensation Gross Sensation WNL Muscle Tone Muscle Tone WNL Yes M6 PT-IP Treatment Start: 07/13/19 12:05 Freq: NEEDED Status: Active Protocol: Document 07/19/19 13:14 [facility] (Rec: 07/19/19 14:13 [facility] [id number]) Physical Therapy Treatment Exercises Exercises Ankle Pumps M7 PT-IP Assessment and Plan Start: 07/13/19 12:05 Freq: NEEDED Status: Active Protocol: Document 07/20/19 10:15 [facility] (Rec: 07/20/19 13:15 [facility] [id number]) PT Summary Assessment and Plan Potential Rehabilitation Potential Good Status of Condition at Evaluation Stable Summary Impairments Pain,ROM,Strength,Balance, Coordination,Sensation,Tone, Cognition,Bed Mobility, Transfers,Gait,Activity Tolerance Progress Towards Goals Safe For Discharge Assessment Summary Pt improved with amb distance, transfer mobility and overall activity tolerance. Pt's BP remained stable as well. Recommended pt to cont to use FWW for mobility due to leg weakness. He is ready to be d/ c home with family assistance and HH . Frequency of Treatment Frequency Of Treatment Discharge Treatment Plan Physical Therapy Treatment Plan Bed Mobility Training,Transfer Training,Gait Training, Therapeutic Exercise,Balance Retraining,Discharge Planning Recommendations To Nursing Amount of Assist Needed Standby Assistance Discharge Recommendations PT Discharge Recommendations Home with Assistance,Home Health Transportation Needs at Discharge Private Vehicle
--- NOTE | 2019-07-20 13:17 | PC.NURSE ---
Dr. Dangelo's office scheduling is down at this time, given patient's phone number and their office states they will call him back at home to schedule his follow up appointment with his PCP Dr. Dangelo. Patient was aware upon discharge that office would call him at home. Patient to pickler helper prescription at [facility]. discharge instrucitons and home care handouts reviewed with patient and he states understanding and has no further questions or concerns at this time. Becky was escorted out via wheelchair with all belongings by [facility] to be discharged to home with his son and , with Home health orders.
--- NOTE | 2019-07-20 15:29 | CM.DPC ---
DCP cont: Faxed F2F and 07/18/[address] [facility] at fax # [phone]. (Will fax discharge summary once completed by .) Fax confirmation scanned in. Yamel Nolan, Care Drapery Rod Assembler
--- NOTE | 2019-07-20 16:57 | PM.DS.1 ---
History of Present Illness History of Present Illness Date Patient Seen: 07/20/19 Chief complaint: weakness/sob/hyperglycemia Narrative: Marty Heard is an 83-year-old male with past medical history of type 2 diabetes, hypothyroidism, atrial fibrillation on Coumadin, hypertension, CKD III, and chronic low back pain who was brought in by EMS reporting that he had been in bed with increasing weakness for the past week. Patient states that he is here for high blood sugar, and when he checked it at home over 500 so he was brought into the emergency room. He does endorse progressive fatigue, but states he lives at home and is able to do most of his daily activities. He is limited somewhat by his low back pain for which she has received multiple injections for, and he does use a walker when going out of the house. He states he did have an episode of epigastric abdominal pain last night, that usually goes away with acid relief pills, but did not, and actually will come up in the morning. He actually threw up yesterday, but was unable to recall character of his emesis. He is slightly nauseous today, but denies any fevers, chills, cough, shortness of breath, chest pain. He denies any abdominal pain, lower extremity edema, worsened back pain, neck pain, leg pain, swelling, erythema. In the emergency room, patient had low normal blood pressures but was otherwise unremarkable. He was complaining of back pain. Initial laboratory evaluation showed a leukocytosis 18.8, with 93% neutrophils, hemoglobin of 11.6, platelet of 154. Chemistries were remarkable for creatinine of 1.87 (baseline appears 1.4-1.5), and a glucose of 594. Liver enzymes were also elevated with an AST of 474, ALT of 265, alk phos of 252. Total bilirubin was elevated at 2.9. LDH was 1110, and his INR was 2.4. Lipase was 9330. Procalcitonin was 34.19. VBG showed a pCO2 of 37, bicarb of 20, and a pH of 7.33. ProBNP was 5360. UA was negative. Chest x-ray showed poor inspiratory volumes but did not show any focal infiltrates and does not appear to show volume overload. CT abdomen pelvis showed fat stranding around the pancreatic head, as well as the duodenum, most consistent with pancreatitis as well as clear lung bases. COVID-19 testing was sent by the emergency room. Discharge Providers Provider Date of admission: 07/11/19 14:12 Discharge Date: 07/20/19 Primary care physician: Lakisha Dangelo MD Consults: 07/12/19 17:36 Consult to Occupational Therapy Evaluate & Treat Comment: Physician Instructions: Evaluate and treat Consult to Physical Therapy Evaluate & Treat Comment: Physician Instructions: Evaluate and Treat 07/13/19 13:04 Consult to Physical Therapy Evaluate & Treat Comment: Physician Instructions: Evaluate and Treat Discharge provider: Criss Mcgarry MD Summary Hospital Course Discharge Diagnosis: 1. Acute pancreatitis, resolved 2. Duodenitis 3. Orthostatic hypotension 4. Atrial fibrillation 5. Hypothyroid 6. Morbid obesity 7. Type 2 diabetes Hospital Course: The patient is an 83-year-old male who was admitted to the hospital for acute pancreatitis and hyperglycemia as well as weakness. The patient was kept NPO given IV fluids with improvement of the pancreatitis. Blood sugars improved as well. The patient remained in atrial fibrillation. He was initially treated with metoprolol for his AFib. Patient also has history of congestive heart failure and underwent a cardiac echo which showed an ejection fraction of 60 65% with mild tricuspid regurgitation. His abdominal CT was repeated which showed an inflammatory process around the pancreatic head. 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 Renal ultrasound showed a nonobstructing renal calculus with a decompressed bladder. The patient was in urinary retention. Which resolved during his hospital stay. As the patient was receiving PT and OT he was noted to be markedly orthostatic. Blood pressures which dropped 30-40 point with a resultant rise and heart rate of 10-15 points. Patient was somewhat weak and unsteady in addition. His metoprolol was discontinued, his Lasix was discontinued, patient was placed on Florinef without much improvement. In addition he had significant lower extremity edema. Patient was then placed on midodrine 5 mg 3 times daily. His orthostatic hypotension improved. Patient no longer felt dizzy or unsteady on his feet. He was seen by PT and OT. Arrangements were made for him to be discharged home with his son who will be providing help for him. Patient had no abdominal pain. He was tolerating his diet without difficulty. He was deemed appropriate for discharge and arrangements were made for him to be discharged home. Status at Discharge Cognitive/behavioral status at discharge: oriented Functional status at discharge: uses cane/walker Overall status at discharge: patient is back to baseline Time Spent with Patient Time spent: Less than 30 minutes Exam Vital Signs (past 8 hours): Oxygen Delivery Method Room Air Oxygen Flow Rate 0 Narrative Exam Narrative: Pleasant gentleman in no acute distress Lungs: Decreased breath sounds but clear to auscultation Cardiac exam: Irregularly irregular, normal S1-S2, 2/6 systolic ejection murmur Abdomen: Soft nontender nondistended, no hepatosplenomegaly, no palpable mass Extremities: 2 to 3+ pitting edema bilaterally Objective Labs Result Diagrams: 07/15/19 05:35 07/20/19 05:17 Labs: Laboratory Results - last 24 hr 07/20/19 05:17 Sodium 138 Potassium 4.4 Chloride 109 H Carbon Dioxide 23 BUN 22 H Creatinine 1.19 Estimated GFR 58.4 L BUN/Creatinine Ratio 18.5 Glucose 149 H Calcium 8.5 Discharge Plan Discharge orders & Medications Discharge Orders: Discharge (Order); Ordered 07/20/19 Ordered By: Criss Mcgarry Prescriptions: New midodrine 5 mg Tablet 5 mg PO 0600,1200,1800 Qty: 15 RF: 0 Continued tramadol 50 MG tablet 100 mg PO TID PRN (Reason: pain) Qty: 0 RF: 0 ferrous sulfate [Iron (ferrous sulfate)] 325 mg (65 mg iron) Tablet 325 mg PO DAILY RF: 0 levothyroxine 50 mcg Tablet 50 mcg PO [id number] RF: 0 warfarin [Coumadin] 5 mg Tablet 5 mg PO BEDTIME RF: 0 Novolin 70-30 FlexPen U-100 100 unit/mL (70-30) Insulin Pen 0 units subcut BIDAC RF: 0 Discontinued metoprolol succinate 100 MG tablet extended release 24 hr 100 mg PO DAILY RF: 0 furosemide [Lasix] 80 MG tablet 80 mg PO DAILY RF: 0 Follow up/Referrals: Lakisha Dangelo MD [Primary Care Provider] - Visit Report/Discharge Packet Instructions: DI for Orthostatic Hypotension, DI for Pancreatitis, DI for Heart Failure, DI for Hypoglycemia, How to Prevent Falls, DI for Hyperglycemia -- Adult, Midodrine Discharge Data Primary Care Provider: Lakisha Dangelo Discharges patient from system. Discharge Date/Time: 07/20/19 12:50 Quality VTE Deep Vein Thrombosis/Pulmonary Embolism Present on Admission: No
--- NOTE | 2019-07-21 08:45 | CM.DPC ---
DCP cont: Faxed discharge summary to [facility] at fax # [phone]. Fax confirmation scanned in. Yamel Nolan, Care Control Systems Developer
== END 2019-07-20 12:50 | disposition home health service (06) | DRG 871 ==
LOC: ED 12:10 → ICU 14:41 → AC 07-12 15:56 → ICU 07-16 17:17
PROVIDERS: Family Medicine; Internal Medicine; Admitting Provider Internal Medicine; Emergency Provider Emergency Medicine; PCP Internal Medicine; Referring Provider Emergency Medicine; Visit Provider Internal Medicine
DX: A41.51 Sepsis due to Escherichia coli [E. coli] (principal); K85.90 Acute pancreatitis without necrosis or infection, unspecified; N17.9 Acute kidney failure, unspecified; I48.20 Chronic atrial fibrillation, unspecified; E11.65 Type 2 diabetes mellitus with hyperglycemia; R65.20 Severe sepsis without septic shock; E86.0 Dehydration; I12.9 Hypertensive chronic kidney disease with stage 1 through stage 4 chronic kidney disease, or unspecified chronic kidney disease; N18.3 Chronic kidney disease, stage 3 (moderate); K29.80 Duodenitis without bleeding; R94.5 Abnormal results of liver function studies; I95.1 Orthostatic hypotension; E03.9 Hypothyroidism, unspecified; G89.29 Other chronic pain; R60.0 Localized edema; R33.9 Retention of urine, unspecified; E66.01 Morbid (severe) obesity due to excess calories; Z68.37 Body mass index [BMI] 37.0-37.9, adult; Z66 Do not resuscitate; Z03.818 Encounter for observation for suspected exposure to other biological agents ruled out
CPT/HCPCS: 36415; 71045; 74176; 74181; 76705; 80048; 80053; 80061; 80076; 81001; 82009; 82533; 82805; 82947; 82962; 83036; 83605; 83615; 83690; 83880; 84145; 84478; 84484; 85025; 85610; 86704; 86706; 86803; 87040; 87150; 87186; 87205; 87340; 87635; 87797; 93005; 93306; 96365; 96366; 96368; 97110; 97116; 97129; 97130; 97161; 97165; 97530; 97535; 99285; 99291; J0696; J0834; Q9957

== ENCOUNTER 2019-08-05 11:18 | Emergency (ER) | payer OTHER, SELFPAY ==
[2019-07-11 14:49] VITALS: BMI 36.4
--- NOTE | 2019-08-05 11:22 | DI.RAD.S_ITS ---
PROCEDURE: XR CHEST 1V INDICATIONS: chest pain TECHNIQUE: One view of the chest was acquired. COMPARISON: [facility], CR, XR CHEST 1V, 07/27/2018, 0:55. [facility], CR, XR CHEST 2V, 09/05/2018, 15:11. [facility], CR, XR CHEST 1V, 07/11/2019, 11:57. FINDINGS: Surgical changes and devices: Left lower neck clips are seen. Lungs and pleura: No focal infiltrates are seen. Mild, generalized interstitial prominence can be seen. No large pleural effusions or pneumothorax. There is mild elevation of the left hemidiaphragm. Mediastinum: The cardiac contours are mildly to moderately enlarged. The aorta demonstrates calcification and tortuosity. Bones and chest wall: No suspicious bony lesions. Age-appropriate bony degenerative changes are seen. Mild dextroconvex scoliotic curvature is seen. Overlying soft tissues appear unremarkable. IMPRESSION: Mild to moderate cardiomegaly, with mild interstitial prominence. Please correlate with patient presentation, physical examination findings, and laboratory values for congestive heart failure. Postoperative and degenerative changes are seen. Dictated by: Tony Mckinney M.D. on 08/05/2019 at 11:20 Approved by: Tony Mckinney M.D. on 08/05/2019 at 11:22
[2019-08-05 11:25] VITALS: BP 102/62; PULSE 121; RESP 22; TEMP 36.3; O2SAT 99
--- NOTE | 2019-08-05 11:37 | ED_ITS ---
HPI - General Adult <Angelika AtkinsonFRANK - Last Filed: 08/05/19 20:35> General Chief complaint: Weakness Stated complaint: hypotensive today Time Seen by Provider: 08/05/19 11:34 History of Present Illness HPI narrative: 83yo male with a history of obesity, A-fib- currently on Warfarin, CHF, HTN, pancreatitis, lumbocascral spondylosis, and DM, presents emergency department for hypotension. He states he takes his blood pressure multiple times a day, today he has been taking his blood pressure and noticed he has had multiple readings of 96/63, 89/61, and others with a systolic in the 90s. He denies any symptoms but states his blood pressure is usually systolic likely 140s. Patient states he finished his last dose of antibiotic for chronic lower leg cellulitis yesterday, he does not recall the name medication. He states he has chronic shortness of breath which has not worsened in the past few days and reports chronic back pain which has not worsened. Patient denies any other symptoms such as dizziness, weakness, chest pain, abdominal pain, nausea, vomiting, diarrhea, fevers, chills, leg pain, or any other concerns. Patient sees Lakisha Charles as a primary care provider. Was recently admitted on 07/11/19 for acute pancreatitis. Patient takes midodrine for orthostatic hypotension, states he took his last dose yesterday. Related Data Home Medications Medication Instructions Recorded Confirmed tramadol 100 mg PO TID PRN #0 02/03/16 07/11/19 levothyroxine 50 mcg PO MOTUWETHFRSA 09/16/17 07/11/19 Novolin 70-30 FlexPen U-100 0 units SUBCUT BIDAC 07/20/18 07/12/19 warfarin [Coumadin] 5 mg PO BEDTIME 07/20/18 07/12/19 ferrous sulfate [Iron (ferrous 325 mg PO DAILY 07/11/19 07/11/19 sulfate)] Previous Rx's Medication Instructions Recorded midodrine 5 mg PO 0600,1200,1800 #15 tab 07/20/19 doxycycline hyclate 100 mg PO BID 7 Days #14 cap 08/05/19 midodrine 5 mg PO TID #20 tab 08/05/19 Allergies Allergy/AdvReac Type Severity Reaction Status Date / Time Penicillins Allergy Unknown Verified 08/05/19 11:47 Review of Systems <FRANK Patel - Last Filed: 08/05/19 20:35> Review of Systems Narrative: REVIEW OF SYSTEMS: GENERAL: Denies fever or chills. HENT: No head trauma, hearing loss or sore throat. EYES: No loss of vision, double vision, eye pain, or irritation. CARDIOVASCULAR: No chest pain or syncope. Reports low blood pressure, see HPI. RESPIRATORY: No shortness of breath or cough. GASTROINTESTINAL: No nausea, vomiting, diarrhea, or constipation. GENITOURINARY: No dysuria. MUSCULOSKELETAL: No pain or weakness. INTEGUMENTARY: No rash, lesions, or pruritus. Reports chronic cellulitis to lower legs. NEURO: No numbness, tingling. PSYCH: No behavior or mood changes. Patient History <FRANK Patel - Last Filed: 08/05/19 20:35> Medical History Cancer of left ear (Acute) Chronic atrial fibrillation with RVR (Acute) Diabetes (Chronic) E coli infection (Acute) Hernia of abdominal cavity (Acute) Hypothyroidism (Acute) Inguinal hernia bilateral, non-recurrent (Acute) Melanoma (Acute) Prostate cancer (Acute) Social History household members: spouse and children Smoking Status: Never smoker alcohol intake: never Smoking Status: Never smoker alcohol intake frequency: 0-2 drinks per day Substance Use Type: does not use Exam <FRANK Patel - Last Filed: 08/05/19 20:35> Initial Vital Signs Initial Vital Signs: Vital Signs Temperature 97.4 F L 08/05/19 11:25 Pulse Rate 121 H 08/05/19 11:25 Respiratory Rate 22 08/05/19 11:25 Blood Pressure 102/62 08/05/19 11:25 Pulse Oximetry 99 08/05/19 11:25 PHYSICAL EXAMINATION: GENERAL: Pleasant, alert, and cooperative. Obese. Answers questions appropriately. Vital signs noted, no hypotension examination. HENT: Normocephalic, atraumatic. Ear canals patent. Oral mucosa is pink and moist. EYES: Conjunctiva pink, sclera white, no periorbital swelling. CHEST: Normal to inspection and without deformities. CARDIOVASCULAR: S1 and S2 sounds normal. Regular rate and rhythm, no murmurs, clicks, or bruits. No pedal edema. RESPIRATORY: Normal respiratory rate, trachea midline, airway patent. No stridor, nasal flaring or accessory muscle use. Lungs are clear in all ron without wheeze, rhonchi, or crackles. GASTROINTESTINAL: Large habitus,bBowel sounds normoactive. Abdomen is soft and non-tender. No organomegaly. MUSCULOSKELETAL: Equal tone and mass bilaterally. EXTREMITIES: CMS intact. 4+ pitting edema noted to feet and lower legs, non weeping. A patch of cellulitis approximately 10 cm in diameter noted to the dorsal aspect of the right lateral foot. A patches resolving light pink cellulitis approximately 15 cm in diameter noted to medial aspect of right lower leg, very slight increased temp to palpation. Patient denies tenderness to palpation of these areas. SKIN: Warm, dry, soft, appropriate color for ethnicity. Skin with erythematous patches as described above. NEURO: Alert and Oriented X 3. Good coordination. No ataxia, or sensory deficits, or cognitive issues. PSYCH: Appropriate affect and mood. <Corey Knox MD - Last Filed: 08/06/19 15:20> Initial Vital Signs Initial Vital Signs: Vital Signs Temperature 97.4 F L 08/05/19 11:25 Pulse Rate 121 H 08/05/19 11:25 Respiratory Rate 22 08/05/19 11:25 Blood Pressure 102/62 08/05/19 11:25 Pulse Oximetry 99 08/05/19 11:25 Course <FRANK Patel - Last Filed: 08/05/19 20:35> Orders Ordered: Discontinued Medications Sodium Chloride (Normal Saline 0.9%) 1,000 mls @ 150 mls/hr IV CONT GARRETT Last Admin: 08/05/19 14:16 Dose: Not Given Documented by: RSTONE Consultations Consultation #1: Patient staffed with Dr. Knox, discussed history, symptoms, tests, and test results. Vital Signs Vital signs: Vital Signs - 8 hr 08/05/19 13:10 Pulse Rate 92 H Respiratory Rate 20 Blood Pressure [Left Arm] 95/53 L Pulse Oximetry 93 <Corey Knox MD - Last Filed: 08/06/19 15:20> Orders Ordered: Discontinued Medications Sodium Chloride (Normal Saline 0.9%) 1,000 mls @ 150 mls/hr IV CONT GARRETT Last Admin: 08/05/19 14:16 Dose: Not Given Documented by: GINA Vital Signs Vital signs: Vital Signs - 8 hr 08/05/19 13:10 Pulse Rate 92 H Respiratory Rate 20 Blood Pressure [Left Arm] 95/53 L Pulse Oximetry 93 Medical Decision Making <FRANK Patel - Last Filed: 08/05/19 20:35> Medical Records Medical records reviewed: Yes I reviewed the patient's medical records. Lab Data Lab results reviewed: Yes I reviewed the patient's lab results. Result diagrams: 08/05/19 10:30 08/05/19 10:30 Labs: Lab Results 08/05/19 08/05/19 08/05/19 Range/Units 10:30 10:30 10:30 WBC 5.3 (4.5-11.0) X10^3/uL RBC 3.75 L (4.5-5.9) X10^6/uL Hgb 11.5 L (13.5-17.5) g/dL Hct 33.9 L (41-53) % MCV 90.5 (80-100) fL MCH 30.7 (26-34) PG MCHC 33.9 (30-36) % RDW 15.6 H (11.6-14.8) % Plt Count 165 (150-400) X10^3/uL Neut % (Auto) 57.2 (50-75) % Lymph % (Auto) 28.0 (25-40) % Haines % (Auto) 11.0 (3-14) % Eos % (Auto) 3.1 (2-4) % Baso % (Auto) 0.7 (0-2) % Neut # (Auto) 3000 (5861-9450) /uL Lymph # (Auto) 1500 (9868-1744) /uL Haines # (Auto) 600 (0-900) /uL Eos # (Auto) 200 (0-450) /uL Baso # (Auto) 0 (0-100) /uL PT 31.7 H (10.1-12.7) SECONDS INR 2.8 H (0.9-1.3) APTT 38 H D (26.4-36.2) SECONDS Sodium 141 (137-145) mmol/L Potassium 4.4 (3.4-5.1) mmol/L Chloride 107 (98-107) mmol/L Carbon Dioxide 26 (22-32) mmol/L BUN 28 H (9-20) mg/dL Creatinine 1.59 H (0.66-1.25) mg/dL Estimated GFR 41.8 L (>60) mL/min BUN/Creatinine Ratio 17.6 (6-22) Glucose 67 L (80-110) mg/dL Lactate (0.7-2.1) mmol/L Calcium 8.5 (8.4-10.2) mg/dL Total Bilirubin 0.7 (0.2-1.3) mg/dL AST 42 (17-59) IU/L ALT 18 (<50) IU/L Alkaline Phosphatase 104 (38-126) U/L Total Creatine Kinase 62 (55-170) U/L CK-MB (CK-2) TNP CK-MB (CK-2) Rel Index TNP Troponin I < 0.012 (0.01-0.034) ng/mL NT-Pro-B Natriuret Pep (<450) pg/mL Total Protein 6.9 (6.3-8.2) g/dL Albumin 3.6 (3.5-5.0) g/dL Globulin 3.3 (1.7-4.1) g/dL Albumin/Globulin Ratio 1.1 (1.0-2.8) Lipase 133 (23-300) U/L Procalcitonin (<0.5) ng/mL 08/05/19 08/05/19 08/05/19 Range/Units 10:30 10:30 10:30 WBC (4.5-11.0) X10^3/uL RBC (4.5-5.9) X10^6/uL Hgb (13.5-17.5) g/dL Hct (41-53) % MCV (80-100) fL MCH (26-34) PG MCHC (30-36) % RDW (11.6-14.8) % Plt Count (150-400) X10^3/uL Neut % (Auto) (50-75) % Lymph % (Auto) (25-40) % Haines % (Auto) (3-14) % Eos % (Auto) (2-4) % Baso % (Auto) (0-2) % Neut # (Auto) (0317-2425) /uL Lymph # (Auto) (0293-3528) /uL Haines # (Auto) (0-900) /uL Eos # (Auto) (0-450) /uL Baso # (Auto) (0-100) /uL PT (10.1-12.7) SECONDS INR (0.9-1.3) APTT (26.4-36.2) SECONDS Sodium (137-145) mmol/L Potassium (3.4-5.1) mmol/L Chloride (98-107) mmol/L Carbon Dioxide (22-32) mmol/L BUN (9-20) mg/dL Creatinine (0.66-1.25) mg/dL Estimated GFR (>60) mL/min BUN/Creatinine Ratio (6-22) Glucose (80-110) mg/dL Lactate 2.3 H (0.7-2.1) mmol/L Calcium (8.4-10.2) mg/dL Total Bilirubin (0.2-1.3) mg/dL AST (17-59) IU/L ALT (<50) IU/L Alkaline Phosphatase (38-126) U/L Total Creatine Kinase (55-170) U/L CK-MB (CK-2) CK-MB (CK-2) Rel Index Troponin I (0.01-0.034) ng/mL NT-Pro-B Natriuret Pep 2420 H (<450) pg/mL Total Protein (6.3-8.2) g/dL Albumin (3.5-5.0) g/dL Globulin (1.7-4.1) g/dL Albumin/Globulin Ratio (1.0-2.8) Lipase (23-300) U/L Procalcitonin < 0.05 (<0.5) ng/mL ECG Data Interpretation: AFib, rate 105, QTC 489. Left axis deviation, right bundle-br anch block. No ST elevation or ST depression. Similar to EKG on 07/21/2018. EKG also viewed by Dr. Knox. [facility] Narrative Medical decision making narrative: 83-year-old male with a history of CHF, AFib, orthostatic hypotension for which he take midorine for recently, and chronic lower leg cellulitis presents emergency department for multiple recordings of low systolic blood pressure without symptoms. I suspect patient's symptoms are most likely due to the fact that he took his last dose of midorine yesterday. I am unsure the exact cause of patient's postural hypotension, this may be due to fluid shifts and chronic renal disease. However, I do not suggest increasing diuretics due to reports of low BP at this time and decreased GFR. Less likely sepsis due to lack of fever, normal white blood cell count without a left shift, no symptoms such as weakness or increased fatigue. Patient was hypotensive in the emergency department. However, patient clearly has cellulitis on examination. Patient was given doxycycline to treat infection. No fevers or tachycardia. Lactate was slightly elevated 2.3 which may be due to fluid shift or slight dehydration and/or chronic cellulitis. Patient does have a BNP of 2420 which may be due to chronic CHF and AFib related to pulmonary hypertension. Small amount infiltrates noted on chest x-ray as well as cardiomegaly, this is consistent with patient's chronic CHF and AFib and less likely left-sided CHF exacerbation. There is some concern with fluid retention due to bilateral lower leg edema this may be related to chronic cellulitis versus venous stasis versus chronic right- sided CHF. Less likely significant right- sided CHF exacerbation due to lack of JVD, chest pain, or worsening dyspnea. Patient was encouraged to follow up with his primary care provider in the next few days for further evaluation as planned. Return precautions given for new or worsening symptoms. Patient agreed to plan of care verbalized understanding. <Corey Knox MD - Last Filed: 08/06/19 15:20> Lab Data Labs: Lab Results 08/05/19 08/05/19 08/05/19 Range/Units 10:30 10:30 10:30 WBC 5.3 (4.5-11.0) X10^3/uL RBC 3.75 L (4.5-5.9) X10^6/uL Hgb 11.5 L (13.5-17.5) g/dL Hct 33.9 L (41-53) % MCV 90.5 (80-100) fL MCH 30.7 (26-34) PG MCHC 33.9 (30-36) % RDW 15.6 H (11.6-14.8) % Plt Count 165 (150-400) X10^3/uL Neut % (Auto) 57.2 (50-75) % Lymph % (Auto) 28.0 (25-40) % Haines % (Auto) 11.0 (3-14) % Eos % (Auto) 3.1 (2-4) % Baso % (Auto) 0.7 (0-2) % Neut # (Auto) 3000 (5372-7297) /uL Lymph # (Auto) 1500 (8663-8218) /uL Haines # (Auto) 600 (0-900) /uL Eos # (Auto) 200 (0-450) /uL Baso # (Auto) 0 (0-100) /uL PT 31.7 H (10.1-12.7) SECONDS INR 2.8 H (0.9-1.3) APTT 38 H D (26.4-36.2) SECONDS Sodium 141 (137-145) mmol/L Potassium 4.4 (3.4-5.1) mmol/L Chloride 107 (98-107) mmol/L Carbon Dioxide 26 (22-32) mmol/L BUN 28 H (9-20) mg/dL Creatinine 1.59 H (0.66-1.25) mg/dL Estimated GFR 41.8 L (>60) mL/min BUN/Creatinine Ratio 17.6 (6-22) Glucose 67 L (80-110) mg/dL Lactate (0.7-2.1) mmol/L Calcium 8.5 (8.4-10.2) mg/dL Total Bilirubin 0.7 (0.2-1.3) mg/dL AST 42 (17-59) IU/L ALT 18 (<50) IU/L Alkaline Phosphatase 104 (38-126) U/L Total Creatine Kinase 62 (55-170) U/L CK-MB (CK-2) TNP CK-MB (CK-2) Rel Index TNP Troponin I < 0.012 (0.01-0.034) ng/mL NT-Pro-B Natriuret Pep (<450) pg/mL Total Protein 6.9 (6.3-8.2) g/dL Albumin 3.6 (3.5-5.0) g/dL Globulin 3.3 (1.7-4.1) g/dL Albumin/Globulin Ratio 1.1 (1.0-2.8) Lipase 133 (23-300) U/L Procalcitonin (<0.5) ng/mL 08/05/19 08/05/19 08/05/19 Range/Units 10:30 10:30 10:30 WBC (4.5-11.0) X10^3/uL RBC (4.5-5.9) X10^6/uL Hgb (13.5-17.5) g/dL Hct (41-53) % MCV (80-100) fL MCH (26-34) PG MCHC (30-36) % RDW (11.6-14.8) % Plt Count (150-400) X10^3/uL Neut % (Auto) (50-75) % Lymph % (Auto) (25-40) % Haines % (Auto) (3-14) % Eos % (Auto) (2-4) % Baso % (Auto) (0-2) % Neut # (Auto) (5030-1306) /uL Lymph # (Auto) (5346-8804) /uL Haines # (Auto) (0-900) /uL Eos # (Auto) (0-450) /uL Baso # (Auto) (0-100) /uL PT (10.1-12.7) SECONDS INR (0.9-1.3) APTT (26.4-36.2) SECONDS Sodium (137-145) mmol/L Potassium (3.4-5.1) mmol/L Chloride (98-107) mmol/L Carbon Dioxide (22-32) mmol/L BUN (9-20) mg/dL Creatinine (0.66-1.25) mg/dL Estimated GFR (>60) mL/min BUN/Creatinine Ratio (6-22) Glucose (80-110) mg/dL Lactate 2.3 H (0.7-2.1) mmol/L Calcium (8.4-10.2) mg/dL Total Bilirubin (0.2-1.3) mg/dL AST (17-59) IU/L ALT (<50) IU/L Alkaline Phosphatase (38-126) U/L Total Creatine Kinase (55-170) U/L CK-MB (CK-2) CK-MB (CK-2) Rel Index Troponin I (0.01-0.034) ng/mL NT-Pro-B Natriuret Pep 2420 H (<450) pg/mL Total Protein (6.3-8.2) g/dL Albumin (3.5-5.0) g/dL Globulin (1.7-4.1) g/dL Albumin/Globulin Ratio (1.0-2.8) Lipase (23-300) U/L Procalcitonin < 0.05 (<0.5) ng/mL Discharge Plan Departure Patient Disposition: Home Clinical Impression: Chronic orthostatic hypotension Cellulitis Qualifiers: Site of cellulitis: extremity Site of cellulitis of extremity: lower extremity Laterality: unspecified laterality Qualified Code(s): L03.119 - Cellulitis of unspecified part of limb Discharge Date/Time: 08/05/19 14:21 Instructions: DI for Cellulitis -- Adult, DI for Orthostatic Hypotension Activity Restrictions/Additional Instructions: Thank you for entrusting me with your care today. As discussed, I have given you antibiotics for the infection in your legs. I have also refilled your medication that helps with low blood pressure, please take this as directed. Your prescriptions have been sent to [facility] in [place]. Because your blood pressure decreases when you change position, please change position slowly. Continue to monitor your blood pressure throughout the day. Please follow-up with your primary care provider in the next few days as planned. Return emergency department immediately for any new or worsening symptoms such as dizziness, syncope, severe pain, high fevers, shortness of breath, chest pain, or any other concerns. Prescriptions: New midodrine 5 mg tablet 5 mg PO TID Qty: 20 RF: 0 doxycycline hyclate 100 mg capsule 100 mg PO BID 7 Days Qty: 14 RF: 0 No Action tramadol 50 MG tablet 100 mg PO TID PRN (Reason: pain) Qty: 0 RF: 0 ferrous sulfate [Iron (ferrous sulfate)] 325 mg (65 mg iron) Tablet 325 mg PO DAILY RF: 0 midodrine 5 mg Tablet 5 mg PO 0600,1200,1800 Qty: 15 RF: 0 levothyroxine 50 mcg Tablet 50 mcg PO MOTUWETHFRSA RF: 0 warfarin [Coumadin] 5 mg Tablet 5 mg PO BEDTIME RF: 0 Novolin 70-30 FlexPen U-100 100 unit/mL (70-30) Insulin Pen 0 units subcut BIDAC RF: 0 Referrals: Lakisha Dangelo MD [Primary Care Provider] -
[2019-08-05 11:48] VITALS: BP 104/68; PULSE 79; RESP 22; O2SAT 99
[2019-08-05 11:58] LABS: Add Manual Diff / Slide Review NO; Basophils Absolute Auto 0 /uL (0-100); Basophils Percent Auto 0.7 % (0-2); Eosinophils Absolute Auto 200 /uL (0-450); Eosinophils Percent Auto 3.1 % (2-4); Hematocrit 33.9 % (41-53); Hemoglobin 11.5 g/dL (13.5-17.5); Lymphocytes Absolute Auto 1500 /uL (1100-4500); Mean Corpuscular HGB Conc 33.9 % (30-36); Mean Corpuscular Hemoglobin 30.7 PG (26-34); Mean Corpuscular Volume 90.5 fL (80-100); Monocytes Absolute Auto 600 /uL (0-900); Neutrophils Absolute Auto 3000 /uL (1500-7000); Neutrophils Percent Auto 57.2 % (50-75); Platelet Count 165 X10^3/uL (150-400); Red Blood Cell Count 3.75 X10^6/uL (4.5-5.9); Red Cell Distribution Width 15.6 % (11.6-14.8); White Blood Cell Count 5.3 X10^3/uL (4.5-11.0)
[2019-08-05 12:03] LABS: INR 2.8 (0.9-1.3); Prothrombin Time 31.7 SECONDS (10.1-12.7)
[2019-08-05 12:05] LABS: PTT Partial Thromboplastin Tim 38 SECONDS (26.4-36.2)
[2019-08-05 12:08] LABS: Lactate (Lactic Acid) 2.3 mmol/L (0.7-2.1)
[2019-08-05 12:09] LABS: Alanine Aminotransferase 18 IU/L (<50); Albumin 3.6 g/dL (3.5-5.0); Albumin Globulin Ratio 1.1 (1.0-2.8); Alkaline Phosphatase 104 U/L (38-126); Aspartate Aminotransferase 42 IU/L (17-59); BUN Creatinine Ratio 17.6 (6-22); Bilirubin Total 0.7 mg/dL (0.2-1.3); Blood Urea Nitrogen 28 mg/dL (9-20); Calcium 8.5 mg/dL (8.4-10.2); Carbon Dioxide 26 mmol/L (22-32); Chloride 107 mmol/L (98-107); Creatine Kinase 62 U/L (55-170); Estimated Glomerular Filt Rate 41.8 mL/min (>60); Globulin 3.3 g/dL (1.7-4.1); Glucose 67 mg/dL (80-110); Lipase 133 U/L (23-300); Potassium 4.4 mmol/L (3.4-5.1); Sodium 141 mmol/L (137-145); Total Protein 6.9 g/dL (6.3-8.2)
[2019-08-05 12:18] LABS: NT-proBNP (BNP-Adult 18+) 2420 pg/mL (<450)
[2019-08-05 12:26] VITALS: BP 110/56; PULSE 85; RESP 12; O2SAT 95
[2019-08-05 12:29] LABS: Procalcitonin < 0.05 ng/mL (<0.5)
--- NOTE | 2019-08-05 12:29 | PC.NURSE ---
pt with anasarca over body. pitting +4.
[2019-08-05 12:33] LABS: HEMOLYSIS < 15 (0-50); Troponin I < 0.012 ng/mL (0.01-0.034)
[2019-08-05 13:10] VITALS: BP 95/53; PULSE 92; RESP 20; O2SAT 93
[2019-08-05 13:48] LABS: Reflexed Lactate in 2 Hours Y
== END 2019-08-05 14:21 | disposition home or self-care (01) ==
PROVIDERS: Emergency Medicine; Emergency Provider Nurse Practitioner; PCP Internal Medicine
DX: I95.1 Orthostatic hypotension (principal); L03.119 Cellulitis of unspecified part of limb; R07.9 Chest pain, unspecified; E66.9 Obesity, unspecified; I48.91 Unspecified atrial fibrillation; Z79.01 Long term (current) use of anticoagulants; I11.0 Hypertensive heart disease with heart failure; I50.9 Heart failure, unspecified; K85.90 Acute pancreatitis without necrosis or infection, unspecified; M47.817 Spondylosis without myelopathy or radiculopathy, lumbosacral region
CPT/HCPCS: 36415; 71045; 80053; 82550; 83605; 83690; 83880; 84145; 84484; 85025; 85610; 85730; 87040; 93005; 99284

== ENCOUNTER → 2019-08-15 08:06 | Outpatient (CLI) | payer OTHER, SELFPAY ==
[2019-07-11 14:49] VITALS: BMI 36.4
[2019-08-15 09:25] LABS: Add Manual Diff / Slide Review NO; Basophils Absolute Auto 100 /uL (0-100); Basophils Percent Auto 1.2 % (0-2); Eosinophils Absolute Auto 200 /uL (0-450); Hematocrit 35.7 % (41-53); Lymphocytes Absolute Auto 1400 /uL (1100-4500); Lymphocytes Percent Auto 26.3 % (25-40); Mean Corpuscular HGB Conc 33.6 % (30-36); Mean Corpuscular Hemoglobin 30.3 PG (26-34); Mean Corpuscular Volume 89.9 fL (80-100); Monocytes Absolute Auto 400 /uL (0-900); Monocytes Percent Auto 8.4 % (3-14); Neutrophils Absolute Auto 3200 /uL (1500-7000); Neutrophils Percent Auto 60.1 % (50-75); Platelet Count 193 X10^3/uL (150-400); Red Blood Cell Count 3.97 X10^6/uL (4.5-5.9); Red Cell Distribution Width 15.2 % (11.6-14.8); White Blood Cell Count 5.3 X10^3/uL (4.5-11.0)
[2019-08-15 10:02] LABS: Alanine Aminotransferase 25 IU/L (<50); Albumin 3.7 g/dL (3.5-5.0); Albumin Globulin Ratio 1.1 (1.0-2.8); Alkaline Phosphatase 118 U/L (38-126); Aspartate Aminotransferase 52 IU/L (17-59); BUN Creatinine Ratio 16.7 (6-22); Bilirubin Total 0.8 mg/dL (0.2-1.3); Blood Urea Nitrogen 28 mg/dL (9-20); Carbon Dioxide 29 mmol/L (22-32); Chloride 104 mmol/L (98-107); Estimated Glomerular Filt Rate 39.2 mL/min (>60); Globulin 3.3 g/dL (1.7-4.1); Glucose 138 mg/dL (80-110); HEMOLYSIS < 15 (0-50); Potassium 4.4 mmol/L (3.4-5.1); Sodium 142 mmol/L (137-145)
[2019-08-15 10:11] LABS: NT-proBNP (BNP-Adult 18+) 1790 pg/mL (<450)
[2019-08-15 10:32] LABS: Cortisol AM (Before 10AM) 19.6 ug/dL (4.46-22.7)
[2019-08-15 10:36] LABS: TSH w/ Reflex to FT4 3.07 uIU/mL (0.47-4.68)
[2019-08-22 14:30] LABS: Plama Renin, LC/MS/MS 1.577
[2019-08-24 04:41] LABS: Aldosterone/Renin Activity Rat 6.2 (0.0-30.0)
== END ==
PROVIDERS: PCP Internal Medicine; Referring Provider Internal Medicine; Visit Provider Internal Medicine
DX: I95.9 Hypotension, unspecified (principal); L03.119 Cellulitis of unspecified part of limb; K85.90 Acute pancreatitis without necrosis or infection, unspecified; E03.9 Hypothyroidism, unspecified; I50.810 Right heart failure, unspecified
CPT/HCPCS: 36415; 80053; 82024; 82088; 82533; 83880; 84244; 84443; 85025

== ENCOUNTER → 2019-08-26 12:47 | Outpatient (CLI) | payer OTHER, SELFPAY ==
[2019-07-11 14:49] VITALS: BMI 36.4
[2019-08-26 13:09] LABS: Add Manual Diff / Slide Review NO; Basophils Absolute Auto 100 /uL (0-100); Basophils Percent Auto 1.3 % (0-2); Eosinophils Absolute Auto 200 /uL (0-450); Hemoglobin 12.7 g/dL (13.5-17.5); Lymphocytes Absolute Auto 1400 /uL (1100-4500); Lymphocytes Percent Auto 22.1 % (25-40); Mean Corpuscular HGB Conc 33.3 % (30-36); Mean Corpuscular Hemoglobin 30.2 PG (26-34); Mean Corpuscular Volume 90.5 fL (80-100); Monocytes Absolute Auto 400 /uL (0-900); Monocytes Percent Auto 6.6 % (3-14); Neutrophils Absolute Auto 4300 /uL (1500-7000); Platelet Count 162 X10^3/uL (150-400); Red Blood Cell Count 4.19 X10^6/uL (4.5-5.9); Red Cell Distribution Width 15.4 % (11.6-14.8); White Blood Cell Count 6.4 X10^3/uL (4.5-11.0)
[2019-08-26 13:21] LABS: Alanine Aminotransferase 30 IU/L (<50); Albumin 3.9 g/dL (3.5-5.0); Albumin Globulin Ratio 1.1 (1.0-2.8); Alkaline Phosphatase 116 U/L (38-126); Aspartate Aminotransferase 75 IU/L (17-59); BUN Creatinine Ratio 12.4 (6-22); Bilirubin Total 0.8 mg/dL (0.2-1.3); Blood Urea Nitrogen 19 mg/dL (9-20); Calcium 8.8 mg/dL (8.4-10.2); Carbon Dioxide 29 mmol/L (22-32); Chloride 103 mmol/L (98-107); Estimated Glomerular Filt Rate 43.6 mL/min (>60); Globulin 3.4 g/dL (1.7-4.1); Glucose 294 mg/dL (80-110); HEMOLYSIS < 15 (0-50); Potassium 4.5 mmol/L (3.4-5.1); Sodium 137 mmol/L (137-145); Total Protein 7.3 g/dL (6.3-8.2)
[2019-08-26 13:29] LABS: NT-proBNP (BNP-Adult 18+) 2180 pg/mL (<450)
[2019-08-27 07:18] LABS: C Peptide 6.5 ng/mL (1.1-4.4)
== END ==
PROVIDERS: PCP Internal Medicine; Referring Provider Internal Medicine; Visit Provider Internal Medicine
DX: E16.2 Hypoglycemia, unspecified (principal); D64.9 Anemia, unspecified; R11.0 Nausea; E11.21 Type 2 diabetes mellitus with diabetic nephropathy; I50.32 Chronic diastolic (congestive) heart failure
CPT/HCPCS: 36415; 80053; 83880; 84681; 85025

== ENCOUNTER 2019-09-09 15:24 | Emergency (ER) | payer OTHER, SELFPAY ==
[2019-07-11 14:49] VITALS: BMI 36.4
[2019-09-09] VITALS (8 sets, daily range): BP systolic 91–149; BP diastolic 54–85; PULSE 83–131; RESP 13–24; O2SAT 94–100; BMI 38.0
--- NOTE | 2019-09-09 15:41 | DI.RAD.S_ITS ---
PROCEDURE: XR CHEST 1V INDICATIONS: dyspnea TECHNIQUE: One view of the chest was acquired. COMPARISON: None. FINDINGS: Surgical changes and devices: None. Lungs and pleura: Lungs are clear. No pleural effusions or pneumothorax. Mediastinum: Mediastinal contours appear normal. Unchanged cardiomegaly. Bones and chest wall: No suspicious bony lesions. Overlying soft tissues appear unremarkable. IMPRESSION: Unchanged cardiomegaly. Dictated by: Ramsey Maurice M.D. on 09/09/2019 at 15:14 Approved by: Ramsey Maurice M.D. on 09/09/2019 at 15:17
[2019-09-09 15:49] LABS: Add Manual Diff / Slide Review NO; Basophils Absolute Auto 0 /uL (0-100); Basophils Percent Auto 0.6 % (0-2); Eosinophils Absolute Auto 100 /uL (0-450); Eosinophils Percent Auto 2.1 % (2-4); Hematocrit 38.8 % (41-53); Hemoglobin 13.1 g/dL (13.5-17.5); Lymphocytes Absolute Auto 1500 /uL (1100-4500); Lymphocytes Percent Auto 23.4 % (25-40); Mean Corpuscular HGB Conc 33.7 % (30-36); Mean Corpuscular Hemoglobin 30.2 PG (26-34); Mean Corpuscular Volume 89.5 fL (80-100); Monocytes Absolute Auto 400 /uL (0-900); Monocytes Percent Auto 6.5 % (3-14); Neutrophils Absolute Auto 4300 /uL (1500-7000); Neutrophils Percent Auto 67.4 % (50-75); Platelet Count 174 X10^3/uL (150-400); Red Blood Cell Count 4.34 X10^6/uL (4.5-5.9); Red Cell Distribution Width 14.5 % (11.6-14.8); White Blood Cell Count 6.4 X10^3/uL (4.5-11.0)
[2019-09-09] MEDS: SODIUM CHLORIDE 0.9% 1,000 ML 150 ML IV (15:56)
[2019-09-09] MEDS: ASPIRIN 81 MG CHEW TAB 324 MG PO (15:56)
[2019-09-09 16:01] LABS: Alanine Aminotransferase 28 IU/L (<50); Albumin Globulin Ratio 1.3 (1.0-2.8); Alkaline Phosphatase 131 U/L (38-126); Aspartate Aminotransferase 47 IU/L (17-59); BUN Creatinine Ratio 20.1 (6-22); Bilirubin Total 0.9 mg/dL (0.2-1.3); Blood Urea Nitrogen 32 mg/dL (9-20); Calcium 9.2 mg/dL (8.4-10.2); Carbon Dioxide 27 mmol/L (22-32); Chloride 103 mmol/L (98-107); Creatine Kinase 45 U/L (55-170); Estimated Glomerular Filt Rate 41.7 mL/min (>60); Globulin 3.2 g/dL (1.7-4.1); Glucose 352 mg/dL (80-110); HEMOLYSIS < 15 (0-50); Lipase 101 U/L (23-300); Potassium 4.3 mmol/L (3.4-5.1); Sodium 137 mmol/L (137-145); Total Protein 7.2 g/dL (6.3-8.2)
[2019-09-09 16:02] LABS: D Dimer 201 ng/mL (<230)
[2019-09-09 16:09] LABS: NT-proBNP (BNP-Adult 18+) 1830 pg/mL (<450)
[2019-09-09 16:12] LABS: Troponin I < 0.012 ng/mL (0.01-0.034)
--- NOTE | 2019-09-09 16:25 | ED_ITS ---
HPI - Chest Pain General Chief Complaint: Chest Pain Stated Complaint: May Have Had A Small Heart Attack, Sent By Dr Krueger Seen by Provider: 09/09/19 15:40 History of Present Illness HPI narrative: 84-year-old gentleman with a history of chronic atrial fibrillation anticoagulated on Coumadin, hypothyroidism, congestive heart failure, hypertension, diabetes and chronic back pain presents after having a near syncopal episode while trying to void. He states he has been taking his usual medications(which he is not able to list) and notes that things were okay until he went to the bathroom felt a little bit lightheaded blood pressure at home was reportedly 80/50. Was seen by his physician at home who was concerned enough that she recommended emergency room evaluation. He denies chest pain, dyspnea, fever, cough, chills, abdominal pain, recent falls he does note that his chronic low back pain is at its baseline. He notes no change to bowel or bladder habits and he has not noted specific palpitations or orthopnea. He notes that his lower extremity edema seems like it is getting a bit better recently, he has not complained of being dizzy or feeling that he was going to pass out until the single episode today. Related Data Home Medications Medication Instructions Recorded Confirmed tramadol 100 mg PO TID PRN #0 02/03/16 07/11/19 levothyroxine 50 mcg PO MOTUWETHFRSA 09/16/17 07/11/19 Novolin 70-30 FlexPen U-100 0 units SUBCUT BIDAC 07/20/18 07/12/19 warfarin [Coumadin] 5 mg PO BEDTIME 07/20/18 07/12/19 ferrous sulfate [Iron (ferrous 325 mg PO DAILY 07/11/19 07/11/19 sulfate)] Previous Rx's Medication Instructions Recorded midodrine 5 mg PO 0600,1200,1800 #15 tab 07/20/19 midodrine 5 mg PO TID #20 tab 08/05/19 Allergies Allergy/AdvReac Type Severity Reaction Status Date / Time Penicillins Allergy Unknown Verified 08/05/19 11:47 Review of Systems Review of Systems Narrative: Pertinent positive and negative findings as per HPI Remainder of review of systems is otherwise unremarkable for ENT: No sore throat, neck pain, ear pain GI: Nausea, vomiting, diarrhea, change in bowel habits, black or bloody stools : Dysuria, hematuria, flank pain Skin: Rashes, nonhealing lesions Psych: Depression, anxiety, suicidal ideation Endocrine: Fatigue Patient History Medical History Cancer of left ear (Acute) Chronic atrial fibrillation with RVR (Acute) Diabetes (Chronic) E coli infection (Acute) Hernia of abdominal cavity (Acute) Hypothyroidism (Acute) Inguinal hernia bilateral, non-recurrent (Acute) Melanoma (Acute) Prostate cancer (Acute) Social History household members: spouse and children Smoking Status: Never smoker alcohol intake: never Smoking Status: Never smoker alcohol intake frequency: 0-2 drinks per day Substance Use Type: does not use Exam Narrative Exam Narrative: General: Older-appearing gentleman lying flat and comfortably on a stretcher, in no acute distress. Able to participate in history taking. HEENT: Dryt mucous membranes, normal sclera with reactive pupils, Neck: No JVD, supple Respiratory: Lungs with minor scattered wheeze in anterior lung ron, no rales no rhonchi. Full and symmetrical air movement Cardiac: Irregular, distant heart sounds but no murmurs no bruits appreciated Abdomen: Soft nontender good bowel tones, no flank pain Skin: Warm and dry, no rashes Neurologic: Grossly neurologically intact with no obvious asymmetries or abnormalities Extremities: No trauma, 3+ bilateral lower extremity edema growth chronic venous stasis changes Psych: Cooperative, normal thought content Initial Vital Signs Initial Vital Signs: Vital Signs Pulse Rate 131 H 09/09/19 15:33 Respiratory Rate 14 09/09/19 15:33 Blood Pressure 118/67 09/09/19 15:33 Pulse Oximetry 99 09/09/19 15:33 Course Orders Ordered: ED Orders 09/09/19 15:33 Complete Blood Count AUTO DIFF Stat Comprehensive Metabolic Panel Stat D Dimer Stat Lipase Stat Magnesium Stat NT-proBNP (BNP-Adult 18+) Stat Troponin & CK Cardiac Panel Stat EKG-12 Lead Routine 09/09/19 15:41 XR chest 1V Stat 09/09/19 17:45 Urinalysis and Microscopic Stat Sodium Chloride (Normal Saline 0.9%) 1,000 mls @ 150 mls/hr IV CONT GARRETT Last Infusion: 09/09/19 18:12 Dose: 0 mls/hr Documented by: Admin: 09/09/19 15:56 Dose: 150 mls/hr Documented by: BRAVO Midodrine (Midodrine) 5 mg PO PROTOCOL GARRETT Discontinued Medications Aspirin (Aspirin Chew) 324 mg PO NOW ONE Stop: 09/09/19 15:41 Last Admin: 09/09/19 15:56 Dose: 324 mg Documented by: BRAVO Midodrine (Midodrine) 5 mg PO 0600,1200,1800 GARRETT Tramadol HCl (Ultram) 100 mg PO NOW ONE Stop: 09/09/19 16:45 Last Admin: 09/09/19 17:02 Dose: 100 mg Documented by: BIANKA Vital Signs Vital signs: Vital Signs - 8 hr 09/09/19 15:33 09/09/19 16:00 09/09/19 16:30 Pulse Rate 131 H 84 88 Pulse Rate [Orthostatic Lying] Pulse Rate [Orthostatic Sitting] Pulse Rate [Orthostatic Standing] Respiratory Rate 14 24 14 Blood Pressure 118/67 Blood Pressure [Orthostatic Lying] Blood Pressure [Orthostatic Sitting] Blood Pressure [Orthostatic Standing] Blood Pressure [Right Arm] 130/59 L 125/60 Pulse Oximetry 99 100 94 09/09/19 17:00 09/09/19 17:30 09/09/19 17:49 Pulse Rate 94 H 83 Pulse Rate [Orthostatic Lying] 88 Pulse Rate [Orthostatic Sitting] 97 H Pulse Rate [Orthostatic Standing] 110 H Respiratory Rate 13 17 Blood Pressure Blood Pressure [Orthostatic Lying] 123/68 Blood Pressure [Orthostatic Sitting] 108/77 Blood Pressure [Orthostatic Standing] 91/54 L Blood Pressure [Right Arm] 149/61 H 140/60 Pulse Oximetry 100 98 MDM - Chest Pain Medical Records Data Attestation: I reviewed the patient's medical records. Lab Data Attestation: I reviewed the patient's lab results. Result diagrams: 09/09/19 15:33 09/09/19 15:33 Labs: Lab Results 09/09/19 09/09/19 09/09/19 Range/Units 15:33 15:33 15:33 WBC 6.4 (4.5-11.0) X10^3/uL RBC 4.34 L (4.5-5.9) X10^6/uL Hgb 13.1 L (13.5-17.5) g/dL Hct 38.8 L (41-53) % MCV 89.5 (80-100) fL MCH 30.2 (26-34) PG MCHC 33.7 (30-36) % RDW 14.5 (11.6-14.8) % Plt Count 174 (150-400) X10^3/uL Neut % (Auto) 67.4 (50-75) % Lymph % (Auto) 23.4 L (25-40) % Rooks % (Auto) 6.5 (3-14) % Eos % (Auto) 2.1 (2-4) % Baso % (Auto) 0.6 (0-2) % Neut # (Auto) 4300 (2071-6431) /uL Lymph # (Auto) 1500 (0568-3879) /uL Rooks # (Auto) 400 (0-900) /uL Eos # (Auto) 100 (0-450) /uL Baso # (Auto) 0 (0-100) /uL D-Dimer 201 (<230) ng/mL Sodium (137-145) mmol/L Potassium (3.4-5.1) mmol/L Chloride (98-107) mmol/L Carbon Dioxide (22-32) mmol/L BUN (9-20) mg/dL Creatinine (0.66-1.25) mg/dL Estimated GFR (>60) mL/min BUN/Creatinine Ratio (6-22) Glucose (80-110) mg/dL Calcium (8.4-10.2) mg/dL Magnesium 2.0 (1.6-2.3) mg/dL Total Bilirubin (0.2-1.3) mg/dL AST (17-59) IU/L ALT (<50) IU/L Alkaline Phosphatase (38-126) U/L Total Creatine Kinase (55-170) U/L CK-MB (CK-2) CK-MB (CK-2) Rel Index Troponin I (0.01-0.034) ng/mL NT-Pro-B Natriuret Pep 1830 H (<450) pg/mL Total Protein (6.3-8.2) g/dL Albumin (3.5-5.0) g/dL Globulin (1.7-4.1) g/dL Albumin/Globulin Ratio (1.0-2.8) Lipase (23-300) U/L Urine Color Urine Appearance Urine pH (4.5-8.0) Ur Specific [place] (1.000-1.035) Urine Protein (Negative) Urine Glucose (UA) (Negative) g/dL Urine Ketones (NEGATIVE) Urine Occult Blood (Negative) Urine Nitrate (Negative) Urine Bilirubin (NEGATIVE) Urine Urobilinogen (0.2) E.U./dL Ur Leukocyte Esterase (NEGATIVE) Urine RBC (0-5/HPF) Urine WBC (0-5/HPF) Ur Squamous Epith Cells (0-5/HPF) Urine Bacteria (None) Ur Culture Indicated? 09/09/19 09/09/19 Range/Units 15:33 17:45 WBC (4.5-11.0) X10^3/uL RBC (4.5-5.9) X10^6/uL Hgb (13.5-17.5) g/dL Hct (41-53) % MCV (80-100) fL MCH (26-34) PG MCHC (30-36) % RDW (11.6-14.8) % Plt Count (150-400) X10^3/uL Neut % (Auto) (50-75) % Lymph % (Auto) (25-40) % Rooks % (Auto) (3-14) % Eos % (Auto) (2-4) % Baso % (Auto) (0-2) % Neut # (Auto) (4992-6978) /uL Lymph # (Auto) (3608-3649) /uL Rooks # (Auto) (0-900) /uL Eos # (Auto) (0-450) /uL Baso # (Auto) (0-100) /uL D-Dimer (<230) ng/mL Sodium 137 (137-145) mmol/L Potassium 4.3 (3.4-5.1) mmol/L Chloride 103 (98-107) mmol/L Carbon Dioxide 27 (22-32) mmol/L BUN 32 H (9-20) mg/dL Creatinine 1.59 H (0.66-1.25) mg/dL Estimated GFR 41.7 L (>60) mL/min BUN/Creatinine Ratio 20.1 (6-22) Glucose 352 H (80-110) mg/dL Calcium 9.2 (8.4-10.2) mg/dL Magnesium (1.6-2.3) mg/dL Total Bilirubin 0.9 (0.2-1.3) mg/dL AST 47 (17-59) IU/L ALT 28 (<50) IU/L Alkaline Phosphatase 131 H (38-126) U/L Total Creatine Kinase 45 L (55-170) U/L CK-MB (CK-2) TNP CK-MB (CK-2) Rel Index TNP Troponin I < 0.012 (0.01-0.034) ng/mL NT-Pro-B Natriuret Pep (<450) pg/mL Total Protein 7.2 (6.3-8.2) g/dL Albumin 4.0 (3.5-5.0) g/dL Globulin 3.2 (1.7-4.1) g/dL Albumin/Globulin Ratio 1.3 (1.0-2.8) Lipase 101 (23-300) U/L Urine Color Yellow Urine Appearance Clear Urine pH 7.0 (4.5-8.0) Ur Specific [place] 1.010 (1.000-1.035) Urine Protein Trace H (Negative) Urine Glucose (UA) 3+ H (Negative) g/dL Urine Ketones Negative (NEGATIVE) Urine Occult Blood Negative (Negative) Urine Nitrate Negative (Negative) Urine Bilirubin Negative (NEGATIVE) Urine Urobilinogen 0.2 (0.2) E.U./dL Ur Leukocyte Esterase Negative (NEGATIVE) Urine RBC None seen (0-5/HPF) Urine WBC 0-1/hpf (0-5/HPF) Ur Squamous Epith Cells 0-1 /hpf (0-5/HPF) Urine Bacteria None seen (None) Ur Culture Indicated? Cult not indicated Imaging Data Chest x-ray: Radiologist's Impression: IMPRESSION: Unchanged cardiomegaly. Dictated by: Ramsey Maurice M.D. on 09/09/2019 at 15:14 ECG Data Attestation: I personally reviewed and interpreted this ECG as follows: Interpretation: Atrial fibrillation at a rate of 102 Right bundle branch block, left axis deviation No acute ischemic changes MDM Narrative Medical decision making narrative: 84-year-old gentleman with brief episode of hypotension while going to the bathroom this morning. Labs are reassuring. No evidence of significant infection. D-dimer is low suggesting no evidence of pulmonary embolism. No acute anemia to suggest bleeding. No heart failure appreciated on chest x-ray or clinical exam. Troponin and EKG are unremarkable suggesting no evidence of acute coronary syndrome. He does have his chronic atrial fibrillation with rates in the 90s. He is not chronically on a rate control medication. There is no evidence of her current pancreatitis. Patient feels that he is back to his baseline and his main complaint is his chronic back pain for which he takes his tramadol. Orthostatics done at bedside. Atrial fibrillation heart rate remains around 100 however blood pressure does drop to 79/over 55 when standing upright. This is not associated with any dyspnea or dizziness. Will go ahead and infused a L of fluid repeat orthostatics given his mid day dose of tramadol and re-evaluate. Patient is appropriately concerned and anxious about home discharge. He describes 2 episodes where he was discharged and then eventually came back both of which were associated with significant hypoglycemia. He references recent hospital stay where he spent 8 days in the hospital with pancreatitis. He does not seem to have much insight into the severity of his complex medical problems and is clearly concerned. Workup today shows no evidence of severe heart failure, acute coronary syndrome or STEMI, no pulmonary embolism, no infection or sepsis. He does have moderate orthostatic hypotension for which he carries a diagnosis and takes scheduled midodrine. I suspect that is part of the near syncopal episode he had this morning. He also has chronic atrial fibrillation for which she is anticoagulated and metoprolol was recently discontinued because of the orthostatic hypotension. With activity his heart rate goes up however it rapidly comes down and starting an additional rate lowering medication I think will only exacerbate the orthostatic hypotension and would be inappropriate at this time He also has diabetes, is on appropriate medications and for any episodes of hypoglycemia he does have glucose available at home. He is morbidly obese and has significant global deconditioning all contributing to his overall symptoms none of which are acute nor warranting admission at this time. Attempted to reassure him as much as possible he is more concerned about the 2nd co-pay that will be responsible for if he ends up returning to the emergency room. At this time he still has his chronic atrial fibrillation his orthostatic hypotension and diabetes and is stable for home discharge Discharge Plan Departure Patient Disposition: Home Clinical Impression: Chronic orthostatic hypotension Diabetes Qualifiers: Diabetes mellitus type: type 2 Diabetes mellitus intermediate insulin use: with intermediate use Diabetes mellitus complication status: with other specified complication Qualified Code(s): E11.69 - Type 2 diabetes mellitus with other specified complication Atrial fibrillation Qualifiers: Atrial fibrillation type: longstanding persistent Qualified Code(s): I48.11 - Longstanding persistent atrial fibrillation Instructions: DI for Orthostatic Hypotension Activity Restrictions/Additional Instructions: Thank you for coming in today I understand it is frustrating to not have specific answers and to still have ch ronic medical problems that can be better and worse on various days. We did do a very thorough workup in the emergency room today and there is no evidence of heart attack or heart attack like syndrome, congestive heart failure that needs hospital admission, blood clots in yourr lungs, severe infection, stroke or low blood sugar. You are slightly dehydrated and you did receive a L of fluid in the emergency department. You do carry a diagnosis of chronic orthostatic hypotension and that is the reason that you are on midodrine 3 times a day. It is important that you continue taking this. You do have chronic atrial fibrillation and for the most part the rate is controlled. When you are up and moving the rate goes up however medications that might slow this will make your blood pressure situation worse. You do have diabetes currently your blood sugars have been running on the high side and the couple of episodes where your family has been unable to wake you up or all associated with low blood sugars. Making sure that you are continuing to eat regular meals can help avoid the episodes of low blood sugars. With your last hospital stay in July, you had pancreatitis. There is no evidence of that with today's visit. At this time, there is no indication for hospital admission and I believe you are on all the appropriate medications and safe to go home. I encourage you to schedule appointment with your primary care physician for a follow-up visit early next week. If he finding of new symptoms this evening or in the next few days it is perfectly appropriate to return to the emergency room and I am happy to fully re-evaluate. Prescriptions: No Action tramadol 50 MG tablet 100 mg PO TID PRN (Reason: pain) Qty: 0 RF: 0 ferrous sulfate [Iron (ferrous sulfate)] 325 mg (65 mg iron) Tablet 325 mg PO DAILY RF: 0 midodrine 5 mg Tablet 5 mg PO 0600,1200,1800 Qty: 15 RF: 0 levothyroxine 50 mcg Tablet 50 mcg PO MOTUWETHFRSA RF: 0 warfarin [Coumadin] 5 mg Tablet 5 mg PO BEDTIME RF: 0 Novolin 70-30 FlexPen U-100 100 unit/mL (70-30) Insulin Pen 0 units subcut BIDAC RF: 0 midodrine 5 mg tablet 5 mg PO TID Qty: 20 RF: 0 Referrals: Lakisha Dangelo MD [Primary Care Provider] -
[2019-09-09] MEDS: TRAMADOL 50 MG TABLET 100 MG PO (17:02)
[2019-09-09 17:52] LABS: Bacteria Urine None Seen; RBC Urine None Seen (0-5/HPF)
[2019-09-09 17:54] LABS: Appearance Urine UA CLEAR; Bilirubin Urine UA NEGATIVE (NEGATIVE); Color Urine UA YELLOW; Glucose Urine UA 3+ g/dL (Negative); Ketones Urine UA NEGATIVE (NEGATIVE); Leukocyte Esterase Urine UA NEGATIVE (NEGATIVE); Nitrite Urine UA NEGATIVE (Negative); Occult Blood Urine UA NEGATIVE (Negative); Protein Urine UA TRACE (Negative); Urobilinogen Urine UA 0.2 E.U./dL (0.2)
[2019-09-09 18:00] LABS: WBC Urine 0-1/HPF (0-5/HPF)
[2019-09-09 18:01] LABS: Culture Indicated Urine Cult Not Indicated; Squamous Epithelial Cell Urine 0-1 /HPF (0-5/HPF)
== END 2019-09-09 19:41 | disposition home or self-care (01) ==
PROVIDERS: Emergency Provider Emergency Medicine; PCP Internal Medicine
DX: I95.1 Orthostatic hypotension (principal); I48.11 Longstanding persistent atrial fibrillation; Z79.01 Long term (current) use of anticoagulants; E03.9 Hypothyroidism, unspecified; I50.9 Heart failure, unspecified; E11.69 Type 2 diabetes mellitus with other specified complication; E66.01 Morbid (severe) obesity due to excess calories
CPT/HCPCS: 36415; 71045; 80053; 81001; 82550; 83690; 83735; 83880; 84484; 85025; 85379; 93005; 96360; 96361; 99285

== ENCOUNTER 2019-09-27 13:53 | Inpatient (IN) | payer OTHER, SELFPAY ==
[2019-07-11 14:49] VITALS: BMI 36.4
[2019-09-27] VITALS (22 sets, daily range): BP systolic 70–147; BP diastolic 46–84; PULSE 60–137; RESP 8–30; TEMP 35.8–36.6; O2SAT 98–100; BMI 35.0
--- NOTE | 2019-09-27 14:09 | ED_ITS ---
HPI - Fall General Chief Complaint: Fall Stated Complaint: GLF,low bp Time Seen by Provider: 09/27/19 13:55 Source: patient and EMS History of Present Illness HPI Narrative: Patient here for a ground level fall. Due to getting his walker tangled up with a chair. He was trying to let his dogs out. He asked his to move chairs but she did not. His walker got tangled up and he fell to the ground. Denies denies denies hitting his head or neck. No loss of consciousness. Patient is on anticoagulation for atrial fibrillation. EMS arrived and left the house. Did not say where she was going. Patient states his tetanus up-to-date. Has small skin tear to the left dorsal mid surface of the left hand. Recently family doctor has been trying to get his glucose levels in control. It waxes and wanes. Rarely below 200. Goes high as 400s. EMS states his sitting systolic was 90 and when he got up below 60. Feel lightheaded. No syncope. Vital signs completed here. No hypotension. Rhythm on monitor is atrial fibrillation. Hyperglycemia on Accu-Chek by EMS. Low blood pressure patient states has been an issue for the past few weeks. This is not new. At this time patient has no complaints. No dizziness. Related Data Home Medications Medication Instructions Recorded Confirmed tramadol 100 mg PO TID PRN #0 02/03/16 07/11/19 levothyroxine 50 mcg PO MOTUWETHFRSA 09/16/17 07/11/19 Novolin 70-30 FlexPen U-100 0 units SUBCUT BIDAC 07/20/18 07/12/19 warfarin [Coumadin] 5 mg PO BEDTIME 07/20/18 07/12/19 ferrous sulfate [Iron (ferrous 325 mg PO DAILY 07/11/19 07/11/19 sulfate)] Previous Rx's Medication Instructions Recorded midodrine 5 mg PO 0600,1200,1800 #15 tab 07/20/19 midodrine 5 mg PO TID #20 tab 08/05/19 Allergies Allergy/AdvReac Type Severity Reaction Status Date / Time Penicillins Allergy Unknown Verified 09/27/19 14:07 Review of Systems Review of Systems Narrative: GENERAL: Denies chills, fatigue, malaise, fever, sweats. HEENT: Denies sinus pain, ear pain, sore throat, difficulty swallowing, dizziness. RESPIRATORY: Denies dyspnea, cough, wheezing, hemoptysis, sputum. CARDIOVASCULAR: Denies chest pain, palpitations, orthopnea, edema, GASTROINTESTINAL: Denies nausea, vomiting, abdominal pain, diarrhea, constipation, melena. : Denies dysuria, frequency, incontinence, hematuria, urinary retention. MUSCULOSKELETAL: denies weakness, joint pain, or bony pain SKIN: Denies rash, skin lesions, has skin tear left hand NEUROLOGIC: Denies weakness, headache, numbness, change in speech, confusion, seizures, incoordination. Had dizziness now resolved PSYCHIATRIC: No concerning psychosocial issues. ROS Unobtainable: All systems reviewed & are unremarkable except as noted in HPI and below Patient History Medical History Cancer of left ear (Acute) Chronic atrial fibrillation with RVR (Acute) Diabetes (Chronic) E coli infection (Acute) Hernia of abdominal cavity (Acute) Hypothyroidism (Acute) Inguinal hernia bilateral, non-recurrent (Acute) Melanoma (Acute) Prostate cancer (Acute) Social History household members: spouse and children Smoking Status: Never smoker alcohol intake: never Smoking Status: Never smoker alcohol intake frequency: 0-2 drinks per day Substance Use Type: does not use Exam Narrative Exam Narrative: GENERAL: patient appears stated age. Well-nourished, well- developed patient, in no distress, not toxic HEAD: Atraumatic. Normocephalic. EYES: Pupils equal round and reactive. Extraocular motions intact. No scleral icterus. No injection or drainage. ENT: Nose without bleeding, purulent drainage. Throat without erythema, tonsillar hypertrophy or exudate. Airway patent. NECK: Trachea midline. Non tender no midline tenderness or step-off. CARDIOVASCULAR: Irregularly irregular rhythm without murmurs, gallops, or rubs. RESPIRATORY: Clear to auscultation. Breath sounds equal bilaterally. No wheezes, rales, or rhonchi. GASTROINTESTINAL: Abdomen soft, non-tender, nondistended. EXTREMITIES: No joint tenderness. Small nickel size skin tear very superficial on mid dorsal surface of the left hand. No bone or tendon injury seen. No bleeding. BACK: Nontender without deformity or crepitance. No flank tenderness. NEURO: AOx3. SKIN: No rash or erythema of visible areas PSYCH: Not anxious, is cooperative Initial Vital Signs Initial Vital Signs: Vital Signs Temperature 97.8 F 09/27/19 13:55 Pulse Rate 107 H 09/27/19 13:55 Respiratory Rate 24 09/27/19 13:55 Blood Pressure 131/77 09/27/19 13:55 Pulse Oximetry 100 09/27/19 13:55 Course Course Course Narrative: Patient continues to be hypotensive on standing and tachycardic. Even after 1 L normal saline bolus. Will admit Decision to Admit Date: 09/27/19 Decision to Admit time: 17:01 Orders Ordered: ED Orders 09/27/19 14:06 EKG-12 Lead Stat 09/27/19 14:11 Complete Blood Count AUTO DIFF Stat Comprehensive Metabolic Panel Stat Partial Thromboplastin Time Stat Prothrombin Time INR Stat Troponin & CK Cardiac Panel Stat Discontinued Medications Bacitracin (Bacitracin) 1 applic TOP NOW ONE Stop: 09/27/19 15:16 Last Admin: 09/27/19 16:10 Dose: 1 applic Documented by: [email or web address] Sodium Chloride (Normal Saline 0.9%) 1,000 mls @ 1,000 mls/hr IV BOLUS ONE Stop: 09/27/19 16:19 Last Infusion: 09/27/19 16:35 Dose: 0 mls/hr Documented by: [email or web address] Admin: 09/27/19 15:35 Dose: 1,000 mls/hr Documented by: [email or web address] Reevaluation(s) Reevaluation #1: Recheck blood pressure on standing. Patient is hypotensive 70/44. Pulse 135. Will start IV fluids Time: 15:13 Reevaluation #2: Patient is still orthostatic on standing after 1 L normal saline. Time: 17:01 Consultations Consultation #1: Patient evaluated by hospitalist dr jenkins...will admit Time: 18:08 Vital Signs Vital signs: Vital Signs - 8 hr 09/27/19 13:55 09/27/19 14:36 09/27/19 15:10 Temperature 97.8 F Pulse Rate 107 H 60 93 H Pulse Rate [Orthostatic Lying] Pulse Rate [Orthostatic Sitting] Pulse Rate [Orthostatic Standing] Respiratory Rate 24 30 H 26 H Blood Pressure 131/77 Blood Pressure [Orthostatic Lying] Blood Pressure [Orthostatic Sitting] Blood Pressure [Orthostatic Standing] Pulse Oximetry 100 99 09/27/19 15:12 09/27/19 15:14 09/27/19 15:20 Temperature Pulse Rate 106 H 137 H Pulse Rate [Orthostatic Lying] 133 H Pulse Rate [Orthostatic Sitting] 101 H Pulse Rate [Orthostatic Standing] 133 H Respiratory Rate 27 H 25 H Blood Pressure 70/48 L Blood Pressure [Orthostatic Lying] 70/46 L Blood Pressure [Orthostatic Sitting] 105/59 L Blood Pressure [Orthostatic Standing] 70/46 L Pulse Oximetry 09/27/19 15:30 09/27/19 16:00 09/27/19 16:01 Temperature Pulse Rate 91 H 86 87 Pulse Rate [Orthostatic Lying] Pulse Rate [Orthostatic Sitting] Pulse Rate [Orthostatic Standing] Respiratory Rate 20 8 L 11 L Blood Pressure 129/65 Blood Pressure [Orthostatic Lying] Blood Pressure [Orthostatic Sitting] Blood Pressure [Orthostatic Standing] Pulse Oximetry 09/27/19 16:44 Temperature Pulse Rate 84 Pulse Rate [Orthostatic Lying] 84 Pulse Rate [Orthostatic Sitting] 107 H Pulse Rate [Orthostatic Standing] 131 H Respiratory Rate 22 Blood Pressure 135/67 Blood Pressure [Orthostatic Lying] 132/67 Blood Pressure [Orthostatic Sitting] 104/68 Blood Pressure [Orthostatic Standing] 97/55 L Pulse Oximetry 98 MDM - Fall Lab Data Result diagrams: 09/27/19 14:11 09/27/19 14:11 Labs: Lab Results 09/27/19 09/27/19 09/27/19 Range/Units 14:11 14:11 14:11 WBC 8.1 (4.5-11.0) X10^3/uL RBC 4.67 (4.5-5.9) X10^6/uL Hgb 14.1 (13.5-17.5) g/dL Hct 41.9 (41-53) % MCV 89.6 (80-100) fL MCH 30.1 (26-34) PG MCHC 33.6 (30-36) % RDW 14.4 (11.6-14.8) % Plt Count 202 (150-400) X10^3/uL Neut % (Auto) 69.2 (50-75) % Lymph % (Auto) 21.9 L (25-40) % [place] % (Auto) 6.8 (3-14) % Eos % (Auto) 1.6 L (2-4) % Baso % (Auto) 0.5 (0-2) % Neut # (Auto) 5600 (7451-8689) /uL Lymph # (Auto) 1800 (7657-8192) /uL [place] # (Auto) 600 (0-900) /uL Eos # (Auto) 100 (0-450) /uL Baso # (Auto) 0 (0-100) /uL PT 38.2 H (10.1-12.7) SECONDS INR 3.3 H (0.9-1.3) APTT 50 H D (26.4-36.2) SECONDS Sodium 136 L (137-145) mmol/L Potassium 3.9 (3.4-5.1) mmol/L Chloride 98 (98-107) mmol/L Carbon Dioxide 28 (22-32) mmol/L BUN 33 H (9-20) mg/dL Creatinine 1.83 H (0.66-1.25) mg/dL Estimated GFR 35.4 L (>60) mL/min BUN/Creatinine Ratio 18.0 (6-22) Glucose 432 H (80-110) mg/dL Calcium 9.3 (8.4-10.2) mg/dL Total Bilirubin 0.9 (0.2-1.3) mg/dL AST 52 (17-59) IU/L ALT 33 (<50) IU/L Alkaline Phosphatase 150 H (38-126) U/L Total Creatine Kinase (55-170) U/L CK-MB (CK-2) CK-MB (CK-2) Rel Index Troponin I (0.01-0.034) ng/mL Total Protein 7.2 (6.3-8.2) g/dL Albumin 4.0 (3.5-5.0) g/dL Globulin 3.2 (1.7-4.1) g/dL Albumin/Globulin Ratio 1.3 (1.0-2.8) 09/27/19 Range/Units 14:11 WBC (4.5-11.0) X10^3/uL RBC (4.5-5.9) X10^6/uL Hgb (13.5-17.5) g/dL Hct (41-53) % MCV (80-100) fL MCH (26-34) PG MCHC (30-36) % RDW (11.6-14.8) % Plt Count (150-400) X10^3/uL Neut % (Auto) (50-75) % Lymph % (Auto) (25-40) % [place] % (Auto) (3-14) % Eos % (Auto) (2-4) % Baso % (Auto) (0-2) % Neut # (Auto) (0849-1476) /uL Lymph # (Auto) (3243-3007) /uL [place] # (Auto) (0-900) /uL Eos # (Auto) (0-450) /uL Baso # (Auto) (0-100) /uL PT (10.1-12.7) SECONDS INR (0.9-1.3) APTT (26.4-36.2) SECONDS Sodium (137-145) mmol/L Potassium (3.4-5.1) mmol/L Chloride (98-107) mmol/L Carbon Dioxide (22-32) mmol/L BUN (9-20) mg/dL Creatinine (0.66-1.25) mg/dL Estimated GFR (>60) mL/min BUN/Creatinine Ratio (6-22) Glucose (80-110) mg/dL Calcium (8.4-10.2) mg/dL Total Bilirubin (0.2-1.3) mg/dL AST (17-59) IU/L ALT (<50) IU/L Alkaline Phosphatase (38-126) U/L Total Creatine Kinase 45 L (55-170) U/L CK-MB (CK-2) TNP CK-MB (CK-2) Rel Index TNP Troponin I < 0.012 (0.01-0.034) ng/mL Total Protein (6.3-8.2) g/dL Albumin (3.5-5.0) g/dL Globulin (1.7-4.1) g/dL Albumin/Globulin Ratio (1.0-2.8) ECG Data Attestation: I personally reviewed and interpreted this ECG as follows: Interpretation: Atrial fibrillation ventricular rate 111, right bundle-branch block EKG unchanged from September 09, 2019 at 3:33 p.m. MDM Narrative Medical decision making narrative: No imaging indicated at this time. Other th an abrasion to the hand, denies any head or neck injury or pain or bony/limb pain Glucose noted. This is not not not new. Family physician has been working with patient's hyperglycemia as well as blood pressure control. Patient fluctuates between 200s and 400s throughout the day and week. Patient remains orthostatic on standing after IV hydration. Will admit Patient becomes tachycardic and rate with AFib increases with standing Discharge Plan Departure Patient Disposition: Admitted as Observation Clinical Impression: Abrasion of hand, left, Hyperglycemia, Atrial fibrillation Admit Date/Time: 09/27/19 18:03 Admit Provider: Rell Jenkins
[2019-09-27 14:17] LABS: Add Manual Diff / Slide Review NO; Basophils Absolute Auto 0 /uL (0-100); Basophils Percent Auto 0.5 % (0-2); Eosinophils Absolute Auto 100 /uL (0-450); Eosinophils Percent Auto 1.6 % (2-4); Hematocrit 41.9 % (41-53); Hemoglobin 14.1 g/dL (13.5-17.5); Lymphocytes Absolute Auto 1800 /uL (1100-4500); Lymphocytes Percent Auto 21.9 % (25-40); Mean Corpuscular HGB Conc 33.6 % (30-36); Mean Corpuscular Hemoglobin 30.1 PG (26-34); Mean Corpuscular Volume 89.6 fL (80-100); Monocytes Absolute Auto 600 /uL (0-900); Monocytes Percent Auto 6.8 % (3-14); Neutrophils Absolute Auto 5600 /uL (1500-7000); Neutrophils Percent Auto 69.2 % (50-75); Platelet Count 202 X10^3/uL (150-400); Red Blood Cell Count 4.67 X10^6/uL (4.5-5.9); Red Cell Distribution Width 14.4 % (11.6-14.8); White Blood Cell Count 8.1 X10^3/uL (4.5-11.0)
[2019-09-27 14:18] LABS: INR 3.3 (0.9-1.3); Prothrombin Time 38.2 SECONDS (10.1-12.7)
[2019-09-27 14:21] LABS: PTT Partial Thromboplastin Tim 50 SECONDS (26.4-36.2)
[2019-09-27 14:22] LABS: Creatine Kinase 45 U/L (55-170)
[2019-09-27 14:23] LABS: Alanine Aminotransferase 33 IU/L (<50); Albumin Globulin Ratio 1.3 (1.0-2.8); Alkaline Phosphatase 150 U/L (38-126); Aspartate Aminotransferase 52 IU/L (17-59); Bilirubin Total 0.9 mg/dL (0.2-1.3); Blood Urea Nitrogen 33 mg/dL (9-20); Calcium 9.3 mg/dL (8.4-10.2); Carbon Dioxide 28 mmol/L (22-32); Chloride 98 mmol/L (98-107); Estimated Glomerular Filt Rate 35.4 mL/min (>60); Globulin 3.2 g/dL (1.7-4.1); Glucose 432 mg/dL (80-110); HEMOLYSIS < 15 (0-50); Potassium 3.9 mmol/L (3.4-5.1); Sodium 136 mmol/L (137-145); Total Protein 7.2 g/dL (6.3-8.2)
[2019-09-27 14:34] LABS: Troponin I < 0.012 ng/mL (0.01-0.034)
[2019-09-27] MEDS: SODIUM CHLORIDE 0.9% 1,000 ML 1000 ML IV (15:35)
--- NOTE | 2019-09-27 15:50 | PC.NURSE ---
During orthostatic VS measurements,pt denied any dizziness/lightheadedness during procedure.Skin remained dry.Pt AOX4. BP had dropped drastically.ED physician present during orthostatic VS measurements.Pt denied chest pain\SOB.
[2019-09-27] MEDS: BACITRACIN OINT 0.9 GM PCKT 1 APPLIC TOP (16:10)
--- NOTE | 2019-09-27 17:08 | PC.NURSE ---
ED physician in to speak with pt regarding admission. Dietary tray arrived.
--- NOTE | 2019-09-27 17:36 | PC.NURSE ---
Dr Jenkins in room assessing patient
--- NOTE | 2019-09-27 18:09 | P.PN_ITS ---
Subjective Subjective Date Patient Seen: 09/27/19 Time Patient Seen: 18:09 Interval history: Marty Heard is an 83-year-old male with past medical history of type 2 diabetes, hypothyroidism, atrial fibrillation on Coumadin, hypertension, CKD III, and chronic low back pain who was brought in by EMS after a ground level fall. Patient was getting up with his walker an was trying to let his dogs out and ultimately got his walker tangled up in a chair and he fell to the ground. He denies hitting his head and he had no loss of consciousness. As result of the fall he has a small skin tear to left side of his hand. Patient states he has chronic lightheadedness when standing. He was prescribed midodrine upon discharge from his hospitalization for orthostatic hypotension, and his metoprolol and Lasix were held at that time. Patient does not recall his current medications but thinks his water pill has been restarted. He is not sure if he is still taking his beta-marvin. He has been having difficulty as well controlling his blood sugar recently and his glucose has been very high common rarely below 200 and sometimes into the 400s. He feels generally weak, but this has really been unchanged over the past few months. Patient was admitted in July for sepsis secondary to E coli bacteremia, as well as pancreatitis. During that hospitalization he was profoundly orthostatic and his metoprolol and furosemide were held and the patient was started on m idodrine. Upon discharge the patient was still slightly orthostatic with a blood pressure drop of around 20 points but he was asymptomatic at that point. He is still minimally symptomatic at this time In the emergency room, per ED report patient was initially hypotensive, even more hypotensive upon standing. He was given a L of fluids with improvement in his blood pressure, although he still drops close to 40 points on his blood pressure when standing. Further when standing for prolonged period of time the patient was noted on telemetry to be going into the 140s heart rate with his atrial fibrillation. When his heart rate was fast the patient did complain of dizziness and room spinning sensation but this resolved fairly quickly and the patient was able to ambulate. His initial CBC was unremarkable, coagulation studies show an elevated INR at 3.3, creatinine of 1.83 up from seemingly his baseline around 1.4-1.5 but only mildly. His glucose was 432. Given patient's medical comorbidities, and mainly uncontrolled atrial fibrillation he will be admitted under observation status for further medication adjustment given orthostasis, as well as controlling his hyperglycemia. Exam Vital Signs (past 8 hours): - 09/27/19 13:55 09/27/19 14:36 09/27/19 15:10 Temperature 97.8 F Pulse Rate 107 H 60 93 H Pulse Rate [Orthostatic Lying] Pulse Rate [Orthostatic Sitting] Pulse Rate [Orthostatic Standing] Respiratory Rate 24 30 H 26 H Blood Pressure 131/77 Blood Pressure [Orthostatic Lying] Blood Pressure [Orthostatic Sitting] Blood Pressure [Orthostatic Standing] Pulse Oximetry 100 99 09/27/19 15:12 09/27/19 15:14 09/27/19 15:20 Temperature Pulse Rate 106 H 137 H Pulse Rate [Orthostatic Lying] 133 H Pulse Rate [Orthostatic Sitting] 101 H Pulse Rate [Orthostatic Standing] 133 H Respiratory Rate 27 H 25 H Blood Pressure 70/48 L Blood Pressure [Orthostatic Lying] 70/46 L Blood Pressure [Orthostatic Sitting] 105/59 L Blood Pressure [Orthostatic Standing] 70/46 L Pulse Oximetry 09/27/19 15:30 09/27/19 16:00 09/27/19 16:01 Temperature Pulse Rate 91 H 86 87 Pulse Rate [Orthostatic Lying] Pulse Rate [Orthostatic Sitting] Pulse Rate [Orthostatic Standing] Respiratory Rate 20 8 L 11 L Blood Pressure 129/65 Blood Pressure [Orthostatic Lying] Blood Pressure [Orthostatic Sitting] Blood Pressure [Orthostatic Standing] Pulse Oximetry 09/27/19 16:44 Temperature Pulse Rate 84 Pulse Rate [Orthostatic Lying] 84 Pulse Rate [Orthostatic Sitting] 107 H Pulse Rate [Orthostatic Standing] 131 H Respiratory Rate 22 Blood Pressure 135/67 Blood Pressure [Orthostatic Lying] 132/67 Blood Pressure [Orthostatic Sitting] 104/68 Blood Pressure [Orthostatic Standing] 97/55 L Pulse Oximetry 98 Oxygen Delivery Method Room Air Narrative Exam Narrative: GENERAL APPEARANCE: Obese male, slow speaking, in no acute distress SKIN: Inspection of the skin reveals no rashes, ulcerations or petechiae. HEENT: Normocephalic atraumatic, extraocular muscles are intact, oropharynx is clear and mucous membranes are dry, neck is supple without adenopathy NECK: Supple and symmetric. There was no thyroid enlargement, and no tenderness, or masses were felt. CHEST: Obese, nontender to palpation. LUNGS: Poor effort, but grossly clear to auscultation bilaterally. CARDIOVASCULAR: Irregularly irregular rhythm with normal rate at rest and tachycardic upon standing and no murmurs rubs or gallops. ABDOMEN: Soft and nontender. Obese MUSCULOSKELETAL: There was no tenderness or effusions noted. Muscle strength and tone were normal. EXTREMITIES: Slightly bluish tinge to his right foot, but warm and with pedal pulses, appears slightly chronic. Trace pedal edema is present. Bandage to left hand with no active bleeing or no over cellulitis. NEUROLOGIC: Alert and oriented x 3. Pleasant and cooperative. Objective Labs Result Diagrams: 09/27/19 14:11 09/27/19 14:11 Labs: Laboratory Results - last 24 hr 09/27/19 09/27/19 09/27/19 14:11 14:11 14:11 WBC 8.1 RBC 4.67 Hgb 14.1 Hct 41.9 MCV 89.6 MCH 30.1 MCHC 33.6 RDW 14.4 Plt Count 202 Neut % (Auto) 69.2 Lymph % (Auto) 21.9 L [place] % (Auto) 6.8 Eos % (Auto) 1.6 L Baso % (Auto) 0.5 Neut # (Auto) 5600 Lymph # (Auto) 1800 [place] # (Auto) 600 Eos # (Auto) 100 Baso # (Auto) 0 PT 38.2 H INR 3.3 H APTT 50 H D Sodium 136 L Potassium 3.9 Chloride 98 Carbon Dioxide 28 BUN 33 H Creatinine 1.83 H Estimated GFR 35.4 L BUN/Creatinine Ratio 18.0 Glucose 432 H Calcium 9.3 Total Bilirubin 0.9 AST 52 ALT 33 Alkaline Phosphatase 150 H Total Creatine Kinase CK-MB (CK-2) CK-MB (CK-2) Rel Index Troponin I Total Protein 7.2 Albumin 4.0 Globulin 3.2 Albumin/Globulin Ratio 1.3 09/27/19 14:11 WBC RBC Hgb Hct MCV MCH MCHC RDW Plt Count Neut % (Auto) Lymph % (Auto) [place] % (Auto) Eos % (Auto) Baso % (Auto) Neut # (Auto) Lymph # (Auto) [place] # (Auto) Eos # (Auto) Baso # (Auto) PT INR APTT Sodium Potassium Chloride Carbon Dioxide BUN Creatinine Estimated GFR BUN/Creatinine Ratio Glucose Calcium Total Bilirubin AST ALT Alkaline Phosphatase Total Creatine Kinase 45 L CK-MB (CK-2) TNP CK-MB (CK-2) Rel Index TNP Troponin I < 0.012 Total Protein Albumin Globulin Albumin/Globulin Ratio Assessment & Plan Assessment & Plan narrative: Marty Heard is an 83-year-old male with past medical history of type 2 diabetes, hypothyroidism, atrial fibrillation on Coumadin, hypertension, CKD III, and chronic low back pain who was brought in by EMS after a ground level fall. He is being admitted for orthostatic hypotension, atrial fibrillation, and hyperglycemia. 1. Type 2 diabetes mellitus, with likely HHS, definite hyperglycemia, present on admission -patient with an elevated glucose to 432 on admission, mild RAFFAELE compared to baseline, as well as significantly orthostatic that responded to fluids. All combined this likely represents HHS although typically that requires a glucose of over 600. -continue IV fluids at this time -most recent admission patient was fairly controlled with Lantus 25 units b.i.d., 7 units at mealtime, and high-dose sliding scale. Will restart this here and adjust over time. 2. Atrial fibrillation on chronic anticoagulation, with rapid ventricular response, present on admission -will hold on resuming beta-marvin at this time and will instead favor treatment of hyperglycemia and likely dehydration. Given orthostatic hypotension on admission will give the patient some time after treatment of his hyperglycemia and dehydration as this may correct his fast heart rate. The other possibility is starting amiodarone if his blood pressures do not allow resumption of a beta-marvin. -INR is slightly elevated at 3.3, will hold Coumadin tonight 3. Orthostatic hypotension -likely due to dehydration, uncontrolled diabetes and possible HHS as noted above. During his prior admission he was given midodrine 5 mg t.i.d., and his beta-marvin and furosemide were held. Patient has resumed his furosemide per report, it is unclear if he has restarted his beta-marvin but this is unlikely given his AFib. -his orthostasis may be due to uncontrolled atrial fibrillation. Will rehydrate with fluids, if he remains as tachycardic when he stands will likely preferentially add a beta-marvin as this may actually help with his hypotension if it is due to uncontrolled atrial fibrillation and he stands. 4. Acute on chronic kidney disease, chronic stage III, present on admission -continue IV fluids noted above, acute portion likely secondary to relative dehydration from HHS or possibly low-flow state from low blood pressures. -hold Toradol for pain control in the setting of RAFFAELE. -avoid nephrotoxic medications 5. Chronic low back pain, -continue morphine, hold Toradol given RAFFAELE Code: DNR as specified by patient's POLST form. Surrogate decision maker is listed as his son. DVT: On Coumadin, INR therapeutic Dispo: Patient is admitted under inpatient status as his stay is likely to exceed 2 midnights. Will order PT and OT consultation. Given current state, likely discharge to [facility].
[2019-09-27] MEDS: SODIUM CHLORIDE 0.9% 1,000 ML 50 ML IV (19:19)
--- NOTE | 2019-09-27 19:41 | PM.HP.1 ---
History of Present Illness History of Present Illness Date Patient Seen: 09/27/19 Time Patient Seen: 19:41 Chief complaint: GLF,low bp Narrative: Marty Heard is an 83-year-old male with past medical history of type 2 diabetes, hypothyroidism, atrial fibrillation on Coumadin, hypertension, CKD III, and chronic low back pain who was brought in by EMS after a ground level fall. Patient was getting up with his walker an was trying to let his dogs out and ultimately got his walker tangled up in a chair and he fell to the ground. He denies hitting his head and he had no loss of consciousness. As result of the fall he has a small skin tear to left side of his hand. Patient states he has chronic lightheadedness when standing. He was prescribed midodrine upon discharge from his hospitalization for orthostatic hypotension, and his metoprolol and Lasix were held at that time. Patient does not recall his current medications but thinks his water pill has been restarted. He is not sure if he is still taking his beta-marvin. He has been having difficulty as well controlling his blood sugar recently and his glucose has been very high common rarely below 200 and sometimes into the 400s. He feels generally weak, but this has really been unchanged over the past few months. Patient was admitted in July for sepsis secondary to E coli bacteremia, as well as pancreatitis. During that hospitalization he was profoundly orthostatic and his metoprolol and furosemide were held and the patient was started on midodrine. Upon discharge the patient was still slightly orthostatic with a blood pressure drop of around 20 points but he was asymptomatic at that point. He is still minimally symptomatic at this time In the emergency room, per ED report patient was initially hypotensive, even more hypotensive upon standing. He was given a L of fluids with improvement in his blood pressure, although he still drops close to 40 points on his blood pressure when standing. Further when standing for prolonged period of time the patient was noted on telemetry to be going into the 140s heart rate with his atrial fibrillation. When his heart rate was fast the patient did complain of dizziness and room spinning sensation but this resolved fairly quickly and the patient was able to ambulate. His initial CBC was unremarkable, coagulation studies show an elevated INR at 3.3, creatinine of 1.83 up from seemingly his baseline around 1.4-1.5 but only mildly. His glucose was 432. Given patient's medical comorbidities, and mainly uncontrolled atrial fibrillation he will be admitted under observation status for further medication adjustment given orthostasis, as well as controlling his hyperglycemia. Patient History Medical History Cancer of left ear (Acute) Chronic atrial fibrillation with RVR (Acute) Diabetes (Chronic) E coli infection (Acute) Hernia of abdominal cavity (Acute) Hypothyroidism (Acute) Inguinal hernia bilateral, non-recurrent (Acute) Melanoma (Acute) Prostate cancer (Acute) Family & Social History Social History: household members spouse,children Safety & Behavioral: Feels Safe in Current Yes Environment Been Physically Hurt or No Threatened By a Person Tobacco & Substance use: Smoking Status Never smoker alcohol intake never alcohol intake frequency 0-2 drinks per day Substance Use Type does not use Meds Home Medications and Allergies Home Medications Medication Instructions Recorded Confirmed Type tramadol 100 mg PO TID PRN #0 02/03/16 07/11/19 History levothyroxine 50 mcg PO MOTUWETHFRSA 09/16/17 07/11/19 History Novolin 70-30 FlexPen U-100 0 units SUBCUT BIDAC 07/20/18 07/12/19 History warfarin [Coumadin] 5 mg PO BEDTIME 07/20/18 07/12/19 History ferrous sulfate [Iron (ferrous 325 mg PO DAILY 07/11/19 07/11/19 History sulfate)] midodrine 5 mg PO 0600,1200,1800 #15 tab 07/20/19 Rx midodrine 5 mg PO TID #20 tab 08/05/19 Rx Allergies Allergy/AdvReac Type Severity Reaction Status Date / Time Penicillins Allergy Unknown Verified 09/27/19 14:07 Review of Systems Review of Systems Narrative: All other systems reviewed with the patient and are negative unless otherwise stated. Exam Vital Signs (past 8 hours): - 09/27/19 13:55 09/27/19 14:36 09/27/19 15:10 Temperature 97.8 F Pulse Rate 107 H 60 93 H Pulse Rate [Orthostatic Lying] Pulse Rate [Orthostatic Sitting] Pulse Rate [Orthostatic Standing] Respiratory Rate 24 30 H 26 H Blood Pressure 131/77 Blood Pressure [Orthostatic Lying] Blood Pressure [Orthostatic Sitting] Blood Pressure [Orthostatic Standing] Pulse Oximetry 100 99 09/27/19 15:12 09/27/19 15:14 09/27/19 15:20 Temperature Pulse Rate 106 H 137 H Pulse Rate [Orthostatic Lying] 133 H Pulse Rate [Orthostatic Sitting] 101 H Pulse Rate [Orthostatic Standing] 133 H Respiratory Rate 27 H 25 H Blood Pressure 70/48 L Blood Pressure [Orthostatic Lying] 70/46 L Blood Pressure [Orthostatic Sitting] 105/59 L Blood Pressure [Orthostatic Standing] 70/46 L Pulse Oximetry 09/27/19 15:30 09/27/19 16:00 09/27/19 16:01 Temperature Pulse Rate 91 H 86 87 Pulse Rate [Orthostatic Lying] Pulse Rate [Orthostatic Sitting] Pulse Rate [Orthostatic Standing] Respiratory Rate 20 8 L 11 L Blood Pressure 129/65 Blood Pressure [Orthostatic Lying] Blood Pressure [Orthostatic Sitting] Blood Pressure [Orthostatic Standing] Pulse Oximetry 09/27/19 16:30 09/27/19 16:44 09/27/19 16:47 Temperature Pulse Rate 86 86 101 H Pulse Rate [Orthostatic Lying] 84 Pulse Rate [Orthostatic Sitting] 107 H Pulse Rate [Orthostatic Standing] 131 H Respiratory Rate 13 19 21 Blood Pressure 126/84 132/67 104/68 Blood Pressure [Orthostatic Lying] 132/67 Blood Pressure [Orthostatic Sitting] 104/68 Blood Pressure [Orthostatic Standing] 97/55 L Pulse Oximetry 98 09/27/19 16:50 09/27/19 17:00 09/27/19 17:01 Temperature Pulse Rate 136 H 92 H 89 Pulse Rate [Orthostatic Lying] Pulse Rate [Orthostatic Sitting] Pulse Rate [Orthostatic Standing] Respiratory Rate 20 12 12 Blood Pressure 97/55 L 147/84 H Blood Pressure [Orthostatic Lying] Blood Pressure [Orthostatic Sitting] Blood Pressure [Orthostatic Standing] Pulse Oximetry 09/27/19 17:30 09/27/19 17:31 09/27/19 18:23 Temperature Pulse Rate 92 H 106 H Pulse Rate [Orthostatic Lying] Pulse Rate [Orthostatic Sitting] Pulse Rate [Orthostatic Standing] Respiratory Rate 24 22 Blood Pressure 112/65 Blood Pressure [Orthostatic Lying] Blood Pressure [Orthostatic Sitting] Blood Pressure [Orthostatic Standing] Pulse Oximetry 100 09/27/19 18:30 09/27/19 18:33 09/27/19 19:12 Temperature 96.5 F L Pulse Rate 90 91 H 94 H Pulse Rate [Orthostatic Lying] Pulse Rate [Orthostatic Sitting] Pulse Rate [Orthostatic Standing] Respiratory Rate 13 22 18 Blood Pressure 110/58 L 132/71 Blood Pressure [Orthostatic Lying] Blood Pressure [Orthostatic Sitting] Blood Pressure [Orthostatic Standing] Pulse Oximetry 100 100 Oxygen Delivery Method Room Air Oxygen Flow Rate 0 Narrative Exam Narrative: GENERAL APPEARANCE: Obese male, slow speaking, in no acute distress SKIN: Inspection of the skin reveals no rashes, ulcerations or petechiae. HEENT: Normocephalic atraumatic, extraocular muscles are intact, oropharynx is clear and mucous membranes are dry, neck is supple without adenopathy NECK: Supple and symmetric. There was no thyroid enlargement, and no tenderness, or masses were felt. CHEST: Obese, nontender to palpation. LUNGS: Poor effort, but grossly clear to auscultation bilaterally. CARDIOVASCULAR: Irregularly irregular rhythm with normal rate at rest and tachycardic upon standing and no murmurs rubs or gallops. ABDOMEN: Soft and nontender. Obese MUSCULOSKELETAL: There was no tenderness or effusions noted. Muscle strength and tone were normal. EXTREMITIES: Slightly bluish tinge to his right foot, but warm and with pedal pulses, appears slightly chronic. Trace pedal edema is present. Bandage to left hand with no active bleeing or no over cellulitis. NEUROLOGIC: Alert and oriented x 3. Pleasant and cooperative. Objective Labs Result Diagrams: 09/27/19 14:11 09/27/19 14:11 Labs: Laboratory Results - last 24 hr 09/27/19 09/27/19 09/27/19 14:11 14:11 14:11 WBC 8.1 RBC 4.67 Hgb 14.1 Hct 41.9 MCV 89.6 MCH 30.1 MCHC 33.6 RDW 14.4 Plt Count 202 Neut % (Auto) 69.2 Lymph % (Auto) 21.9 L [place] % (Auto) 6.8 Eos % (Auto) 1.6 L Baso % (Auto) 0.5 Neut # (Auto) 5600 Lymph # (Auto) 1800 [place] # (Auto) 600 Eos # (Auto) 100 Baso # (Auto) 0 PT 38.2 H INR 3.3 H APTT 50 H D Sodium 136 L Potassium 3.9 Chloride 98 Carbon Dioxide 28 BUN 33 H Creatinine 1.83 H Estimated GFR 35.4 L BUN/Creatinine Ratio 18.0 Glucose 432 H Calcium 9.3 Total Bilirubin 0.9 AST 52 ALT 33 Alkaline Phosphatase 150 H Total Creatine Kinase CK-MB (CK-2) CK-MB (CK-2) Rel Index Troponin I Total Protein 7.2 Albumin 4.0 Globulin 3.2 Albumin/Globulin Ratio 1.3 09/27/19 14:11 WBC RBC Hgb Hct MCV MCH MCHC RDW Plt Count Neut % (Auto) Lymph % (Auto) [place] % (Auto) Eos % (Auto) Baso % (Auto) Neut # (Auto) Lymph # (Auto) [place] # (Auto) Eos # (Auto) Baso # (Auto) PT INR APTT Sodium Potassium Chloride Carbon Dioxide BUN Creatinine Estimated GFR BUN/Creatinine Ratio Glucose Calcium Total Bilirubin AST ALT Alkaline Phosphatase Total Creatine Kinase 45 L CK-MB (CK-2) TNP CK-MB (CK-2) Rel Index TNP Troponin I < 0.012 Total Protein Albumin Globulin Albumin/Globulin Ratio Assessment & Plan Assessment & Plan narrative: Marty Heard is an 83-year-old male with past medical history of type 2 diabetes, hypothyroidism, atrial fibrillation on Coumadin, hypertension, CKD III, and chronic low back pain who was brought in by EMS after a ground level fall. He is being admitted for orthostatic hypotension, atrial fibrillation, and hyperglycemia. 1. Type 2 diabetes mellitus, with likely HHS, definite hyperglycemia, present on admission -patient with an elevated glucose to 432 on admission, mild RAFFAELE compared to baseline, as well as significantly orthostatic that responded to fluids. All combined this likely represents HHS although typically that requires a glucose of over 600. -continue IV fluids at this time -most recent admission patient was fairly controlled with Lantus 25 units b.i.d., 7 units at mealtime, and high-dose sliding scale. Will restart this here and adjust over time. 2. Atrial fibrillation on chronic anticoagulation, with rapid ventricular response, present on admission -will hold on resuming beta-marvin at this time and will instead favor treatment of hyperglycemia and likely dehydration. Given orthostatic hypotension on admission will give the patient some time after treatment of his hyperglycemia and dehydration as this may correct his fast heart rate. The other possibility is starting amiodarone if his blood pressures do not allow resumption of a beta-marvin. -INR is slightly elevated at 3.3, will hold Coumadin tonight 3. Orthostatic hypotension -likely due to dehydration, uncontrolled diabetes and possible HHS as noted above. During his prior admission he was given midodrine 5 mg t.i.d., and his beta-marvin and furosemide were held. Patient has resumed his furosemide per report, it is unclear if he has restarted his beta-marvin but this is unlikely given his AFib. -his orthostasis may be due to uncontrolled atrial fibrillation. Will rehydrate with fluids, if he remains as tachycardic when he stands will likely preferentially add a beta-marvin as this may actually help with his hypotension if it is due to uncontrolled atrial fibrillation and he stands. After that will consider midodrine. 4. Acute on chronic kidney disease, chronic stage III, present on admission -continue IV fluids noted above, acute portion likely secondary to relative dehydration from HHS or possibly low-flow state from low blood pressures. Cr 1.83 on admission, lowest Cr last admission was 1.2. -hold Toradol for pain control in the setting of RAFFAELE. -avoid nephrotoxic medications 5. Chronic low back pain, -continue morphine, hold Toradol given RAFFAELE 6. Hypothyroidism - continue levothyroxine 50 mcg. Code: DNR as specified by patient's POLST form. Surrogate decision maker is listed as his son. DVT: On Coumadin, INR therapeutic Dispo: Patient is admitted under inpatient status as his stay is likely to exceed 2 midnights. Will order PT and OT consultation. Given current state, likely discharge to senior care. COVID-19 COVID-19 status: Result pending
[2019-09-27 21:57] LABS: COVID19 -Nasal RAPID Negative (Negative)
[2019-09-27] MEDS: INSULIN GLARGINE 100 UNIT/ML 3ML PEN 25 UNIT SUBCUT (21:57)
[2019-09-27] MEDS: INSULIN ASPART 100 UNIT/ML INSULN PEN SUBCUT (21:58)
--- NOTE | 2019-09-27 23:48 | PC.NURSE ---
Evening Shift Note- Patient arrived to room via stretcher from ER at 1845. Patient able to pivot from stretcher to bed with 1pa and some difficulty. Patient reports increased weakness. Admission questions done, meds reviewed, physical assessmnet done,and skin check completed. Oriented patient to bed and bed controls, room, lights, phone, menu,bathroom, and call stringer/tv remote. Safety measures in place. Patient agrees to call for assistance. Call stringer and phone within reach . will continue to monitor.
[2019-09-28] VITALS (13 sets, daily range): BP systolic 82–140; BP diastolic 44–88; PULSE 86–129; RESP 16–22; TEMP 36.4–37.2; O2SAT 96–100
[2019-09-28] MEDS: LEVOTHYROXINE 50 MCG TABLET PO (06:10)
--- NOTE | 2019-09-28 06:35 | PC.NURSE ---
Addendum entered by Nanette Hernandez R.N. 09/28/19 06:42: edema to legs, elevated throughout night. Also reddened Original Note: Pt has +Orthostatic Hypotension; After standing for a minute he got a little sweaty feeling but did not report feeling dizzy. See Vital signs. No complaints of pain Tele: Afib NS@50mL/hr Pt states he used to take midodrine but his doctor took him off of it for some reason he can't remember. Hx Falls
[2019-09-28 08:08] LABS: INR 3.3 (0.9-1.3); Prothrombin Time 38.2 SECONDS (10.1-12.7)
[2019-09-28 08:12] LABS: Add Manual Diff / Slide Review NO; Basophils Absolute Auto 0 /uL (0-100); Basophils Percent Auto 0.3 % (0-2); Eosinophils Absolute Auto 200 /uL (0-450); Eosinophils Percent Auto 3.7 % (2-4); Hematocrit 37.4 % (41-53); Hemoglobin 12.7 g/dL (13.5-17.5); Lymphocytes Absolute Auto 1600 /uL (1100-4500); Lymphocytes Percent Auto 27.8 % (25-40); Mean Corpuscular HGB Conc 33.9 % (30-36); Mean Corpuscular Hemoglobin 29.6 PG (26-34); Mean Corpuscular Volume 87.4 fL (80-100); Monocytes Absolute Auto 500 /uL (0-900); Monocytes Percent Auto 8.2 % (3-14); Neutrophils Absolute Auto 3400 /uL (1500-7000); Platelet Count 148 X10^3/uL (150-400); Red Blood Cell Count 4.28 X10^6/uL (4.5-5.9); Red Cell Distribution Width 14.3 % (11.6-14.8); White Blood Cell Count 5.6 X10^3/uL (4.5-11.0)
[2019-09-28 08:14] LABS: Alanine Aminotransferase 28 IU/L (<50); Albumin 3.4 g/dL (3.5-5.0); Albumin Globulin Ratio 1.2 (1.0-2.8); Alkaline Phosphatase 121 U/L (38-126); Aspartate Aminotransferase 40 IU/L (17-59); BUN Creatinine Ratio 17.5 (6-22); Bilirubin Total 0.8 mg/dL (0.2-1.3); Bilirubin Unconjugated 0.8 mg/dL (0.0-1.1); Blood Urea Nitrogen 29 mg/dL (9-20); Calcium 8.8 mg/dL (8.4-10.2); Carbon Dioxide 28 mmol/L (22-32); Chloride 103 mmol/L (98-107); Estimated Glomerular Filt Rate 39.7 mL/min (>60); Globulin 2.9 g/dL (1.7-4.1); Glucose 149 mg/dL (80-110); HEMOLYSIS < 15 (0-50); Magnesium 1.9 mg/dL (1.6-2.3); Potassium 3.5 mmol/L (3.4-5.1); Sodium 136 mmol/L (137-145); Total Protein 6.3 g/dL (6.3-8.2)
[2019-09-28] MEDS: FERROUS SULFATE 325 MG TABLET PO (08:30)
[2019-09-28] MEDS: INSULIN ASPART 100 UNIT/ML INSULN PEN 7 UNIT SUBCUT ×3 (08:31→17:10)
[2019-09-28] MEDS: INSULIN GLARGINE 100 UNIT/ML 3ML PEN 25 UNIT SUBCUT ×2 (08:31→20:59)
[2019-09-28] MEDS: INSULIN ASPART 100 UNIT/ML INSULN PEN SUBCUT ×4 (08:32→20:55)
[2019-09-28] MEDS: MIDODRINE HCL 5 MG TABLET PO ×3 (08:40→18:19)
--- NOTE | 2019-09-28 11:01 | CM.DANOTE ---
Discharge Planning/Care Management DCP: assessment: case received, EMR reviewed and met now with pt during Team Bedside Rounds. Introduced self and role. Pt is an 84 year old male who admitted last evening to care of hospitalist team. Payer: [facility] PCP: Lakisha Dangelo. Pt was last here 07/10 with a d/c to home setting with [facility] services: 07/19. He states that only PT has seen him at home. Dr. Jenkins explained that pt had a fall during process of caring for his dog. He was admitted after showing signs of AFiB and with very high blood sugars in the ER. Dietary consult will be placed. Dr. Jenkins will add RN to the disciplines for HH with a focus on medication management as well as blood sugar care. Will update [facility] now and request referral information be sent by [facility]. did speak with Rodo/[facility]. He reported that HH RN/OT/PT/SOCIAL WORK ASSISTANT had been in place for pt and all goals had been met except with PT. They can bring back in RN to address this particular visit and needs. Will obtain resume HH and restart RN orders/done. CM Discharge Assessment Start: 09/28/19 10:56 Freq: Status: Active Protocol: Document 09/28/19 10:56 ITV (Rec: 09/28/19 11:00 ITV [id number]) Discharge Planning Assessment Advance Directives? Yes: POLST Advance Directives on File Yes History Provided By Patient,Medical Record Prior Living Arrangements House Household Members spouse,children Comment lives with who reportedly carries diagnosis of dementia and son Jason who is able to assist them. Independent with ADL's Yes Discharge Plan Home White-board Updated in Patient Room with Yes name and ext. # of Surgical Scheduler Review Status In Process Document 09/28/19 11:01 ITV (Rec: 09/28/19 11:01 ITV [id number]) Discharge Planning Assessment Advance Directives? Yes: POLST Advance Directives on File Yes History Provided By Patient,Medical Record Prior Living Arrangements House Household Members spouse,children Comment lives with who reportedly carries diagnosis of dementia and son Jason who is able to assist them. Independent with ADL's Yes Discharge Plan Home Transportation Arrangement Family Referrals Initiated None needed Additional Comment Will continue to assess Whiteboard Updated in Patient Room with Yes name and ext. # of Surgical Scheduler Review Status In Process
--- NOTE | 2019-09-28 11:40 | PT.IIE ---
Medical History (Last Reviewed 09/27/19 @ 14:13 by Anson Pedraza MD) Cancer of left ear (Acute) Chronic atrial fibrillation with RVR (Acute) Diabetes (Chronic) E coli infection (Acute) Hernia of abdominal cavity (Acute) Hypothyroidism (Acute) Inguinal hernia bilateral, non-recurrent (Acute) Melanoma (Acute) Prostate cancer (Acute) Physical Therapy Inpatient Evaluation/Re-Eval M1 PT/OT-IP Prior Functional Status Start: 09/28/19 12:57 Freq: NEEDED Status: Active Protocol: Document 09/28/19 11:11 DCW (Rec: 09/28/19 13:18 DCW [id number]) Medical Review Prior Functional Status Medical History Reviewed Yes Mobility and Gait Pt typically uses a cane or walker at baseline, has a walk- in shower with a built-in shower chair. Pt notes all my stairs were switched to ramps a while ago. Social History Household Members spouse,children Living Arrangements House Number of Floors (Floors) One Floor Number of Stairs To Enter/Railing? Ramp Home Environment Walk in Shower,Built-In Shower Seat Home Equipment Four Wheel Walker,Straight Cane M2 PT-IP Current Condition Start: 09/28/19 12:57 Freq: NEEDED Status: Active Protocol: Document 09/28/19 11:11 DCW (Rec: 09/28/19 13:18 DCW [id number]) Physical Therapy Current Condition Current Condition Evaluation Date 09/28/19 Treatment Diagnosis GLF, Orthostasis Onset Date 09/27/19 M3 PT-IP Subjective Start: 09/28/19 12:57 Freq: NEEDED Status: Active Protocol: Document 09/28/19 11:11 DCW (Rec: 09/28/19 13:18 DCW [id number]) Subjective Physical Therapy Visit Type Type Initial Evaluation Visit Start Time 11:11 Visit Stop Time 11:40 Total Visit Minutes 29 Notes Pt is an 84 year old male who presented to [facility] ED on 09/27/19 after suffering a fall when out trying to let his dogs out when his walker got caught on a chair. Pt notes his DM II is very poorly controlled, with his recent glucose reading typically above 200, sometimes over 400. In the ED, pt was very hypotensive, and was also suffering from A-fib. Number of CHARGE AUDITOR Visits 0 Physical Therapy Visit Comments Patient Comments Pt notes he has been having left leg numbness for the last hour or so. Supine in bed upon therapist entrance to room, agreeable to therapy. M4 PT-IP Mobility and Gait Start: 09/28/19 12:57 Freq: NEEDED Status: Active Protocol: Document 09/28/19 11:11 DCW (Rec: 09/28/19 13:18 DCW [id number]) PT-Bed Mobility Assessment Rolling Type of Rolling Roll to Left Level of Assist Contact Guard Assistance Supine to Sit Supine to Sit Contact Guard Assistance,1 Person Assistance,Head of Bed Elevated,Bedrails PT-Transfer Assessment Sit to and From Stand Sit to and from Stand Contact Guard Assistance,1 Person Assistance Equipment Transfer Assistive Device Bed Rail,Gait Belt,Front Wheeled Walker Transfers Transfer Destination Bed,Chair,Toilet Transfer Technique Stand Step Pivot Transfer Ability Level of Assist Contact Guard Assistance Comments Mobility Comments Pt sat EOB, BP was 125/71. Pt decided he needed to go to the toilet to try to evacuate bowels, CGA /c FWW, just passed gas. While pt was on the toilet, RN came into room, reporting that the ICU had called regarding pt a-fib, HR was currently in 140s. RN requested end of treatment, allow pt to sit in recliner. After pt finished on toilet, sit->stand with heavy use of UEs and grab bars.Ambulated SBA /c FWW to recliner, and sat down. entered room at this time. BP after activity was 113/71, HR down to 88 bpm. Unable to perform further PT assessment, pt very fatigued. Pt left in recliner with call stringer within reach, warm blanket on legs. Gait Assessment Gait Gait Assistance Required: Standby Assistance,Contact Guard Assist Distance (Feet) 10 Able to Maintain Weight Bearing Status Yes During Gait Assistive Devices Assistive Device Gait Belt,Front Wheeled Walker Orthotic/Prosthetic Devices or Brace: No Gait Deviations General Gait Pattern Antalgic,Decreased Stride Length,Decreased Feet Clearance,Flexed Trunk Factors Limiting Gait Function Factors Limiting Gait Function Decreased Activity Tolerance, Decreased Strength,Pain,Poor Balance Stair Climbing Assessment Comments Stair Climbing Comments Not tested PT-Balance Assessment Sitting Balance and Reactions Static Sitting Balance Ability Good Dynamic Sitting Balance Ability Good Standing Balance and Reactions Static Standing Balance Ability Fair Dynamic Standing Balance Ability Fair Device Used FWW M5 PT-IP Objective Assessments Start: 09/28/19 12:57 Freq: NEEDED Status: Active Protocol: Document 09/28/19 11:11 DCW (Rec: 09/28/19 13:18 DCW [id number]) Orientation Orientation/Cognition Level of Alertness Alert Orientation Name,Birthday,Date,Place, Situation Language Function Ability No Deficits Noted Safety Awareness Understands Safety Issues Memory Description No Deficits Noted Gross Range of Motion Upper Extremity ROM Assessment Within Functional Limits Lower Extremity ROM Assessment Within Functional Limits Strength Lower Extremity Strength Assessment Bilaterally Impaired Hip 4/5 Knee 4/5 Ankle 4/5 M7 PT-IP Assessment and Plan Start: 09/28/19 12:57 Freq: NEEDED Status: Active Protocol: Document 09/28/19 11:11 DCW (Rec: 09/28/19 13:18 DCW [id number]) PT Summary Assessment and Plan Potential Rehabilitation Potential Fair Status of Condition at Evaluation Unstable Summary Impairments Pain,Strength,Sensation,Bed Mobility,Transfers,Gait, Activity Tolerance Assessment Summary Pt demonstrates poor activity tolerance, both physically and with his A-fib. BP has improved since ED, 125/71 upon sitting up in bed. Unable to take standing BP due to pt's requesting urgent need for toilet. Ambulation bed-> bathroom CGA /c FWW, toilet-> recliner SBA. Ended assessment after pt's HR carlitos into the 140s while on the toilet. Pt has been receiving home health from [facility] twice weekly, however will currently likely not be safe to return home physically. Will likely require SNF rehab stay. Goals Bed Mobility Goal Standby Assistance Transfer Goal Standby Assistance Gait Goal Standby Assistance Gait Distance 100' /c FWW Days to Meet Goals 3 Frequency of Treatment Frequency Of Treatment Once a Day Treatment Plan Physical Therapy Treatment Plan Bed Mobility Training,Gait Training,Therapeutic Exercise, Balance Retraining Recommendations To Nursing Amount of Assist Needed Standby Assistance,1 Person Assist Discharge Recommendations PT Discharge Recommendations Home Health,SNF Rehab Transportation Needs at Discharge Private Vehicle
--- NOTE | 2019-09-28 12:20 | PC.NURSE ---
Addendum entered by Janet Clark R.N. 09/28/19 14:48: Dr. Jenkins in to assess pt around 1235, aware of increased edema to LLE, blurred vision to left eye resolving. LLE Doppler study completed around 1340. Addendum entered by Janet Clark R.N. 09/28/19 12:35: At 1235, pt reported left eye blurriness is better, almost all gone, pt can read the numbers on the clock on the wall from sitting in the recliner chair on the opposite wall. Original Note: Day SHift- At 1140, pt reported increase to left leg numbness from behind knee to foot. Did have complaints of numbness to LLE around 0840 this AM, LLE was repositioned on pillows, layed flat on bed, with no improvement. Pt had been OOB to BR and currently sitting in chair after working with PT with again no improvement and now has complaints of left eye blurriness which is new. Blood glucose fingerstick at this time was 195, BP 114/73, pulse 80-90's and O2 sat 98% on RA. Pt denied any pain to LLE, stated only increase in numbness. LLE edema has increased since this mornings assessment. Left foot more puffy edema. DAttempted to notify Dr. Jenkins X2 times, not available. Spoke with Dr. Jenkins via phone at [address] to review and assess pt. No new orders at this time.
--- NOTE | 2019-09-28 12:47 | DI.US.S_ITS ---
PROCEDURE: US PERIPH VENOUS LOW EXTREM LT INDICATIONS: NUMBNESS TECHNIQUE: Real-time imaging, as well as color and pulse Doppler interrogation, were performed of the lower extremity deep veins from the inguinal ligament to the popliteal fossa. COMPARISON: None. FINDINGS: The common femoral, femoral and popliteal veins are normally compressible, and free of intraluminal thrombus. Color and pulse Doppler demonstrate normal phasic intraluminal flow. There is normal augmentation response to distal compression maneuver. IMPRESSION: No evidence of deep vein thrombosis of the left lower extremity. Dictated by: Ruddy Mancini M.D. on 09/28/2019 at 12:59 Approved by: Ruddy Mancini M.D. on 09/28/2019 at 13:05
--- NOTE | 2019-09-28 18:17 | P.PN_ITS ---
Subjective Subjective Date Patient Seen: 09/28/19 Time Patient Seen: 18:18 Interval history: Marty Heard is an 83-year-old male with past medical history of type 2 diabetes, hypothyroidism, atrial fibrillation on Coumadin, hypertension, CKD III, and chronic low back pain who was brought in by EMS after a ground level fall. He is being admitted for orthostatic hypotension, atrial fibrillation, and hyperglycemia. After initiating Lantus along with mealtime insulin his blood sugars are decently controlled today with all below 200. He did report some transient blurriness in his left vision that returned after a few minutes as well as some left-sided numbness and worsening swelling on his left leg. Denied any eye pain. He had no other evidence of stroke including weakness. His left lower extremity did appear swollen compared to the right, and he was mildly tender. Ultrasound was performed which was negative for DVT. He got mildly dizzy after standing with physical therapy for prolonged period of time and his orthostatics are still positive although somewhat improved on midodrine. His blood pressure dropped approximately 25 points from lying flat to sitting, and then did not drop when standing. Exam Vital Signs (past 8 hours): - 09/28/19 11:20 09/28/19 11:45 09/28/19 11:47 Temperature 98.3 F Pulse Rate 100 H 104 H Pulse Rate [Orthostatic Lying] Pulse Rate [Orthostatic Sitting] Pulse Rate [Orthostatic Standing] Respiratory Rate 18 Blood Pressure 125/71 114/73 Blood Pressure [Orthostatic Lying] Blood Pressure [Orthostatic Sitting] Blood Pressure [Orthostatic Standing] Pulse Oximetry 98 98 09/28/19 17:00 Temperature 97.6 F Pulse Rate 94 H Pulse Rate [Orthostatic Lying] 94 H Pulse Rate [Orthostatic Sitting] 129 H Pulse Rate [Orthostatic Standing] 91 H Respiratory Rate 18 Blood Pressure 129/80 Blood Pressure [Orthostatic Lying] 129/80 Blood Pressure [Orthostatic Sitting] 101/63 Blood Pressure [Orthostatic Standing] 98/57 L Pulse Oximetry 98 Oxygen Delivery Method Room Air Oxygen Flow Rate 0 Narrative Exam Narrative: GENERAL APPEARANCE: Obese male, slow speaking, in no acute distress SKIN: Inspection of the skin reveals no rashes, ulcerations or petechiae. HEENT: Normocephalic atraumatic, extraocular muscles are intact, oropharynx is clear and mucous membranes are dry, neck is supple without adenopathy NECK: Supple and symmetric. There was no thyroid enlargement, and no tenderness, or masses were felt. CHEST: Obese, nontender to palpation. LUNGS: Poor effort, but grossly clear to auscultation bilaterally. CARDIOVASCULAR: Irregularly irregular rhythm with normal rate at rest and tachycardic upon standing and no murmurs rubs or gallops. ABDOMEN: Soft and nontender. Obese MUSCULOSKELETAL: There was no tenderness or effusions noted. Muscle strength and tone were normal. EXTREMITIES: Slightly bluish tinge to his right foot, but warm and with pedal pulses, appears slightly chronic. bilateral LE edema present with L > R, 1+, with LLE calf tenderness. NEUROLOGIC: Alert and oriented x 3. Pleasant and cooperative. Objective Labs Result Diagrams: 09/28/19 07:43 09/28/19 07:43 Labs: Laboratory Results - last 24 hr 09/27/19 09/28/19 09/28/19 20:40 07:43 07:43 WBC 5.6 RBC 4.28 L Hgb 12.7 L Hct 37.4 L MCV 87.4 MCH 29.6 MCHC 33.9 RDW 14.3 Plt Count 148 L Neut % (Auto) 60.0 Lymph % (Auto) 27.8 [place] % (Auto) 8.2 Eos % (Auto) 3.7 Baso % (Auto) 0.3 Neut # (Auto) 3400 Lymph # (Auto) 1600 [place] # (Auto) 500 Eos # (Auto) 200 Baso # (Auto) 0 PT INR Sodium 136 L Potassium 3.5 Chloride 103 Carbon Dioxide 28 BUN 29 H Creatinine 1.66 H Estimated GFR 39.7 L BUN/Creatinine Ratio 17.5 Glucose 149 H D Calcium 8.8 Magnesium 1.9 Total Bilirubin 0.8 Conjugated Bilirubin 0.0 Unconjugated Bilirubin 0.8 AST 40 ALT 28 Alkaline Phosphatase 121 Total Protein 6.3 Albumin 3.4 L Globulin 2.9 Albumin/Globulin Ratio 1.2 COVID-19 PCR Negative 09/28/19 07:43 WBC RBC Hgb Hct MCV MCH MCHC RDW Plt Count Neut % (Auto) Lymph % (Auto) [place] % (Auto) Eos % (Auto) Baso % (Auto) Neut # (Auto) Lymph # (Auto) [place] # (Auto) Eos # (Auto) Baso # (Auto) PT 38.2 H INR 3.3 H Sodium Potassium Chloride Carbon Dioxide BUN Creatinine Estimated GFR BUN/Creatinine Ratio Glucose Calcium Magnesium Total Bilirubin Conjugated Bilirubin Unconjugated Bilirubin AST ALT Alkaline Phosphatase Total Protein Albumin Globulin Albumin/Globulin Ratio COVID-19 PCR Assessment & Plan Assessment & Plan narrative: Marty Heard is an 83-year-old male with past [facility] history of type 2 diabetes, hypothyroidism, atrial fibrillation on Coumadin, hypertension, CKD III, and chronic low back pain who was brought in by EMS after a ground level fall. He was admitted for orthostatic hypotension, atrial fibrillation, and hyperglycemia. 1. Type 2 diabetes mellitus, with likely HHS, definite hyperglycemia, present on admission -patient with an elevated glucose to 432 on admission, mild RAFFAELE compared to baseline, as well as significantly orthostatic that responded to fluids. All combined this likely represents HHS although typically that requires a glucose of over 600. -will stop IV fluids today given worsening LE edema and negative LLE ultrasound. -most recent admission patient was fairly controlled with Lantus 25 units b.i.d., 7 units at mealtime, and high-dose sliding scale. Have resumed this and he has had decent control today with sugars in the 140-190 range. He has PMD follow up arranged for Wednesday, next week. 2. Atrial fibrillation on chronic anticoagulation, with rapid ventricular response, present on admission -continue to hold beta marvin at this time. He is only briefly rapid when standing and generally asymptomatic. Given orthostatic vitals believe a beta marvin would make him more dizzy. -INR is still slightly elevated at 3.3, will hold Coumadin tonight 3. Orthostatic hypotension -likely due to dehydration, uncontrolled diabetes and possible HHS as noted above. His sugars were improved but he was still orthostatic today, somewhat improved with midodrine. Will continue at 5 mg TID. If continues to be minimally asymptomatic tomorrow anticipate possible discharge home. -given no relative heart rate change and blood pressure drop do not believe atrial fibrillation is contributing to orthostasis. held beta marvin. Given LE edema may need to resume lasix tomorrow but have held fluids. 4. Acute on chronic kidney disease, chronic stage III, present on admission -continue IV fluids noted above, acute portion likely secondary to relative dehydration from HHS or possibly low-flow state from low blood pressures. Cr 1.83 on admission, lowest Cr last admission was 1.2. Improved slightly to 1.66 today. -hold Toradol for pain control in the setting of RAFFAELE. -avoid nephrotoxic medications 5. Chronic low back pain, -hold Toradol given RAFFAELE -continue PT 6. Hypothyroidism - continue levothyroxine 50 mcg. Code: DNR as specified by patient's POLST form. Surrogate decision maker is listed as his son. DVT: On Coumadin, INR therapeutic Dispo: Observation status, anticipate discharge tomorrow if improving orthostatics. Quality VTE Deep Vein Thrombosis/Pulmonary Embolism Present on Admission: No
[2019-09-28] MEDS: SODIUM CHLORIDE 0.9% FLUSH 10 ML IV (20:59)
[2019-09-29] VITALS (8 sets, daily range): BP systolic 97–157; BP diastolic 49–100; PULSE 88–110; RESP 12–25; TEMP 36.4–37.2; O2SAT 95–99
[2019-09-29] MEDS: MIDODRINE HCL 5 MG TABLET PO ×3 (05:08→18:23)
[2019-09-29] MEDS: LEVOTHYROXINE 50 MCG TABLET PO ×2 (05:08→08:29)
[2019-09-29 06:25] LABS: INR 2.1 (0.9-1.3); Prothrombin Time 24.6 SECONDS (10.1-12.7)
[2019-09-29 06:29] LABS: Alanine Aminotransferase 26 IU/L (<50); Albumin 3.5 g/dL (3.5-5.0); Albumin Globulin Ratio 1.2 (1.0-2.8); Alkaline Phosphatase 124 U/L (38-126); Aspartate Aminotransferase 40 IU/L (17-59); BUN Creatinine Ratio 18.6 (6-22); Bilirubin Total 0.9 mg/dL (0.2-1.3); Bilirubin Unconjugated 0.9 mg/dL (0.0-1.1); Blood Urea Nitrogen 27 mg/dL (9-20); Carbon Dioxide 26 mmol/L (22-32); Chloride 106 mmol/L (98-107); Estimated Glomerular Filt Rate 46.4 mL/min (>60); Globulin 2.9 g/dL (1.7-4.1); Glucose 151 mg/dL (80-110); HEMOLYSIS < 15 (0-50); Potassium 3.5 mmol/L (3.4-5.1); Sodium 136 mmol/L (137-145); Total Protein 6.4 g/dL (6.3-8.2)
[2019-09-29 06:33] LABS: Add Manual Diff / Slide Review NO; Basophils Absolute Auto 0 /uL (0-100); Basophils Percent Auto 0.6 % (0-2); Eosinophils Absolute Auto 200 /uL (0-450); Eosinophils Percent Auto 3.1 % (2-4); Hematocrit 37.4 % (41-53); Hemoglobin 12.9 g/dL (13.5-17.5); Lymphocytes Absolute Auto 1800 /uL (1100-4500); Lymphocytes Percent Auto 24.7 % (25-40); Mean Corpuscular HGB Conc 34.4 % (30-36); Mean Corpuscular Volume 87.2 fL (80-100); Monocytes Absolute Auto 500 /uL (0-900); Monocytes Percent Auto 7.7 % (3-14); Neutrophils Absolute Auto 4600 /uL (1500-7000); Neutrophils Percent Auto 63.9 % (50-75); Platelet Count 154 X10^3/uL (150-400); Red Blood Cell Count 4.29 X10^6/uL (4.5-5.9); Red Cell Distribution Width 14.2 % (11.6-14.8); White Blood Cell Count 7.1 X10^3/uL (4.5-11.0)
[2019-09-29] MEDS: INSULIN ASPART 100 UNIT/ML INSULN PEN SUBCUT ×4 (08:29→21:00)
[2019-09-29] MEDS: INSULIN ASPART 100 UNIT/ML INSULN PEN 7 UNIT SUBCUT ×3 (08:30→16:48)
[2019-09-29] MEDS: BISACODYL 10 MG SUPP PR ×2 (08:31→16:36)
[2019-09-29] MEDS: FERROUS SULFATE 325 MG TABLET PO (08:33)
[2019-09-29] MEDS: INSULIN GLARGINE 100 UNIT/ML 3ML PEN 25 UNIT SUBCUT ×2 (08:33→21:01)
[2019-09-29] MEDS: SODIUM CHLORIDE 0.9% FLUSH 10 ML IV ×2 (08:34→20:59)
[2019-09-29] MEDS: polyethylene glycoL 3350 17 GM POWD.PACK PO (08:34)
--- NOTE | 2019-09-29 10:36 | PT.IPTN ---
Addendum entered and electronically signed by Maxx Duncan, PT 09/29/19 11:23: Pt currently unsafe to return home due to orthostasis and a-fib limiting his ability to safely stand, however once these are medically stabilized, pt will likely be safe for return home for home health PT. Original Note: Physical Therapy Treatment Note M2 PT-IP Current Condition Start: 09/28/19 12:57 Freq: NEEDED Status: Active Protocol: Document 09/28/19 11:11 DCW (Rec: 09/28/19 13:18 DCW [id number]) Physical Therapy Current Condition Current Condition Evaluation Date 09/28/19 Treatment Diagnosis GLF, Orthostasis Onset Date 09/27/19 M3 PT-IP Subjective Start: 09/28/19 12:57 Freq: NEEDED Status: Active Protocol: Document 09/29/19 09:55 DCW (Rec: 09/29/19 10:36 DCW [id number]) Subjective Physical Therapy Visit Type Type Treatment Note Visit Start Time 09:55 Visit Stop Time 10:20 Total Visit Minutes 25 Notes Discussed pt with RN, who noted he was up standing with nursing, but was symptomatic, BP went from 153/100 supine to 97/49 standing. Pt has since been up in recliner for the last two hours. Physical Therapy Visit Comments Patient Comments Pt reports his back pain is starting up again, notes he still has left leg numbness. M4 PT-IP Mobility and Gait Start: 09/28/19 12:57 Freq: NEEDED Status: Active Protocol: Document 09/29/19 09:55 DCW (Rec: 09/29/19 10:36 DCW [id number]) PT-Transfer Assessment Sit to and From Stand Sit to and from Stand Standby Assistance Equipment Transfer Assistive Device Bed Rail,Gait Belt,Front Wheeled Walker Comments Mobility Comments Sitting BP measured at 113/64, with a pulse of 93. Pt sit<-> stand transfer SBA, pt complained of dizziness and sweating, BP dropped to 84/58, with a pulse of 140. Pt was sat back down SBA, almost immediately felt better. M5 PT-IP Objective Assessments Start: 09/28/19 12:57 Freq: NEEDED Status: Active Protocol: Document 09/28/19 11:11 DCW (Rec: 09/28/19 13:18 DCW [id number]) Orientation Orientation/Cognition Level of Alertness Alert Orientation Name,Birthday,Date,Place, Situation Language Function Ability No Deficits Noted Safety Awareness Understands Safety Issues Memory Description No Deficits Noted Gross Range of Motion Upper Extremity ROM Assessment Within Functional Limits Lower Extremity ROM Assessment Within Functional Limits Strength Lower Extremity Strength Assessment Bilaterally Impaired Hip 4/5 Knee 4/5 Ankle 4/5 M6 PT-IP Treatment Start: 09/28/19 12:57 Freq: NEEDED Status: Active Protocol: Document 09/29/19 09:55 DCW (Rec: 09/29/19 10:36 [facility] [id number]) Physical Therapy Treatment Exercises Exercises Ankle Pumps Other Treatments Other Treatment Performed Seated marching LAQ M7 PT-IP Assessment and Plan Start: 09/28/19 12:57 Freq: NEEDED Status: Active Protocol: Document 09/29/19 09:55 DCW (Rec: 09/29/19 10:36 [facility] [id number]) PT Summary Assessment and Plan Summary Assessment Summary Pt still having very poor response to activity. Just standing up dropped BP from 113/64 to 84/58, with complaints of dizziness and sweating and a pulse of 140. Symptoms resolved upon returning to sitting. Pt was able to perform brief TherEx, although this simply tired him out. Pt did perform sit<-> stand transfer better today with SBA, armrest for support in pushing off. Goals Bed Mobility Goal Standby Assistance Transfer Goal Standby Assistance Gait Goal Standby Assistance Gait Distance 100' /c FWW Days to Meet Goals 3 Frequency of Treatment Frequency Of Treatment Once a Day Treatment Plan Physical Therapy Treatment Plan Bed Mobility Training,Gait Training,Therapeutic Exercise, Balance Retraining Recommendations To Nursing Amount of Assist Needed Standby Assistance,1 Person Assist Discharge Recommendations PT Discharge Recommendations SNF Rehab Transportation Needs at Discharge Private Vehicle
--- NOTE | 2019-09-29 10:55 | CM.DPC ---
Addendum entered by Suha Clark LPN 09/29/19 11:05: Rodo/Thao HAYWOOD has been updated via phone conversation re no d/c for today. Original Note: DCP: continued: Met again with pt during Team Bedside Rounds. Pt's heart rate continues to have periods of elevation and new medication will be started today. Dr. Jenkins has changed admission order to INPT now: Jignesh: [facility] and UR team is aware. P: remains home when stable with son Jason and pt's (who has diagnosis of dementia and also is having some medical problems) DCP team to send d/c orders and d/c summary to Thao HAYWOOD when available. Pt states he has a followup appointment with his PCP Lakisha Dangelo on Wednesday AM (10/02).
--- NOTE | 2019-09-29 11:24 | PC.NURSE ---
Addendum entered by Janet Clark R.N. 09/29/19 15:52: At 1223, spoke with Dr. Jenkins via phone regarding pt complaint of emotional/social issue with his who has Dementia, pt teary. Pt has intermittent diaphoresis with rest or activity, HR elevation with ambulation. Generally not feeling well. New order rec'd through [facility] for Troponin, BNP, and EKG. Pt was also able to speak with his via phone this afternoon. Pt reported that he has intermittent pain to right groin which he has had in the past and has been seen for at his PCP with no diagnosis. pt up in chair most of day, able to make needs known using call light. BLE elevated on pillows while in chair. Original Note: Day Shift- At 1115, FREDDIE Baires reported pt was hard to arouse while pt sitting in recliner chair. Pt was confused. Viry SOMERS stated another RN came to assess pt. At 1115, this RN assessed pt, pt aroused with verbal stimuli when his name was called. Pt states he feels very tired, wants to rest. States had an episode of left eye blurriness, a little bit ago, no resolved. States similar to episode yesterday on day shift. Miralax given per order, pt wanted to wait on receiving the Bisacodyl suppository this morning, will reassess. Passing flatus, no BM for 4 days. Denies nausea, tolerating diet.
[2019-09-29 14:21] LABS: NT-proBNP (BNP-Adult 18+) 1550 pg/mL (<450)
[2019-09-29 14:25] LABS: Troponin I < 0.012 ng/mL (0.01-0.034)
--- NOTE | 2019-09-29 15:52 | DIET.PN ---
Dietary Progress Note Assessment: 84y M admitted after GLF and low BP referred to nutrition for uncontrolled DM. HT: 187.9cm WT: 124kg BMI: 35.1 Pt reports having lost 100# over unknown period of time, reports heaviest weight as 350# Pt lives in home c and adult son. All three have health issues which are concerning regarding safety. Pt reports his has memory issues, per CM pts has dementia. She will not let him in the kitchen to cook or use her knives, my won't let anyone in the kitchen or will kill you. Pt tearful when stating he has to ask her repeatedly for breakfast after which they sit and watch tv. His falls asleep and sleeps until 3-4pm so he usually misses lunch. If she is awake, she will make him a pb&j sandwich. Each day he asks what is for dinner and says she doesn't know and there is no meat thawed. Pts won't let him eat salads because said it is bad for his digestion. Pt reports being food secure, plenty of good meat in the freezer, money to buy food. Pts son sleeps most of the day, makes hamburgers or brats for meals which pt doesn't like and doesn't feel is good for his health. Usual Day: B: cheerios or shredded wheat c milk, fresh fruit, tea c artificial sweetener L: pb&j pt prefers [place] style food: pork chops, fish, beef roast, canned or frozen peas, creamed or frozen corn, dinner salad c yakut dressing. A [employer] group drops off food occasionally but often tacos or other items pt is not familiar with. Pt doesn't think his will allow Meals on Wheels in the house. Pt has BM every 3-4d, takes daily iron supplement. Pt reports injecting insulin in his belly in morning and at night, cycling sites. Was recently switched to Novolin 10U am/pm. Pt reports checking BG and his fingers are numb pin cushions. Pt wants to understand how his BP and BG are related. Pt expressed wanting to come in for DM2 teaching with [facility] either 1:1 or classes after this RD told him that fruit juice raises his blood sugar so he should eat whole fruit rather than drinking juice. In [facility], pt had adequate BG control c A1cs averaging 7.9 until July 2018. When inquiring what changed at that time he said he had his gall bladder out and switched from Novolog insulin 30U am/ 35U pm. Labs: admit BG 432 H, A1c 9.9 H Nutrition Diagnosis: altered nutrition related laboratory values r/t endocrine dysfunction and nutrition related knowledge deficit as evidenced by admit BG 432, A1c 9.9, pt stating he didn't know juice increased BG but knows to use alternative sugar products to manage DM. Interventions: 1. Worked on problem solving pt's inability to participate in meal planning/cooking. Encouraged pt to ask his son to move freezer meats into home weekly and for pt to thaw them daily in fridge while naps. 2. Encouraged pt to eat salads and fresh fruit to increase dietary fiber to help stabilize BG and constipation. 3. Encouraged pt to use Meals on Wheels or have son cook 1 non-hamburger family meal each week. 4. Encouraged pt to come to Diabetes Education at for further instruction. 5. Educated pt on cellulitis/healing as related to chronically elevated BG. Diet Order:CCD Monitoring/Evaluations: Please request DSME referral from pts PCP.
[2019-09-29] MEDS: METOPROLOL IR 25 MG TABLET 12.5 MG PO (15:58)
[2019-09-29] MEDS: WARFARIN 5 MG TABLET PO (16:54)
--- NOTE | 2019-09-29 17:00 | P.PN_ITS ---
Subjective Subjective Date Patient Seen: 09/29/19 Time Patient Seen: 17:01 Interval history: Marty Heard is an 83-year-old male with past medical history of type 2 diabetes, hypothyroidism, atrial fibrillation on Coumadin, hypertension, CKD III, and chronic low back pain who was brought in by EMS after a ground level fall. He was admitted for orthostatic hypotension, atrial fibrillation, and hyperglycemia. After initiating Lantus along with mealtime insulin his blood sugars are decently controlled today with all below 200. He got mildly dizzy after standing with physical therapy for prolonged period of time and his orthostatics are still positive although somewhat improved on midodrine. His heart rate was elevated after prolonged standing, and will att empt to start a beta marvin today to see if this improves his orthostasis with improved rate control. Exam Vital Signs (past 8 hours): - 09/29/19 11:29 09/29/19 12:00 09/29/19 16:08 Temperature 97.5 F L 98.4 F Pulse Rate 96 H 88 Respiratory Rate 19 18 Blood Pressure 108/55 L 121/62 Pulse Oximetry 96 98 99 Oxygen Delivery Method Room Air Oxygen Flow Rate 0 Narrative Exam Narrative: GENERAL APPEARANCE: Obese male, slow speaking, in no acute distress SKIN: Inspection of the skin reveals no rashes, ulcerations or petechiae. HEENT: Normocephalic atraumatic, extraocular muscles are intact, oropharynx is clear and mucous membranes are dry, neck is supple without adenopathy NECK: Supple and symmetric. There was no thyroid enlargement, and no tenderness, or masses were felt. CHEST: Obese, nontender to palpation. LUNGS: Poor effort, but grossly clear to auscultation bilaterally. CARDIOVASCULAR: Irregularly irregular rhythm with normal rate at rest and tachycardic upon standing and no murmurs rubs or gallops. ABDOMEN: Soft and nontender. Obese MUSCULOSKELETAL: There was no tenderness or effusions noted. Muscle strength and tone were normal. EXTREMITIES: Slightly bluish tinge to his right foot, but warm and with pedal pulses, appears slightly chronic. bilateral LE edema present with L > R, 1+, with LLE calf tenderness. NEUROLOGIC: Alert and oriented x 3. Pleasant and cooperative. Objective Labs Result Diagrams: 09/29/19 06:00 09/29/19 06:00 Labs: Laboratory Results - last 24 hr 09/29/19 09/29/19 09/29/19 06:00 06:00 06:00 WBC 7.1 RBC 4.29 L Hgb 12.9 L Hct 37.4 L MCV 87.2 MCH 30.0 MCHC 34.4 RDW 14.2 Plt Count 154 Neut % (Auto) 63.9 Lymph % (Auto) 24.7 L [place] % (Auto) 7.7 Eos % (Auto) 3.1 Baso % (Auto) 0.6 Neut # (Auto) 4600 Lymph # (Auto) 1800 [place] # (Auto) 500 Eos # (Auto) 200 Baso # (Auto) 0 PT 24.6 H D INR 2.1 H Sodium 136 L Potassium 3.5 Chloride 106 Carbon Dioxide 26 BUN 27 H Creatinine 1.45 H Estimated GFR 46.4 L BUN/Creatinine Ratio 18.6 Glucose 151 H Calcium 9.0 Magnesium 2.0 Total Bilirubin 0.9 Conjugated Bilirubin 0.0 Unconjugated Bilirubin 0.9 AST 40 ALT 26 Alkaline Phosphatase 124 Troponin I NT-Pro-B Natriuret Pep Total Protein 6.4 Albumin 3.5 Globulin 2.9 Albumin/Globulin Ratio 1.2 09/29/19 09/29/19 12:25 12:25 WBC RBC Hgb Hct MCV MCH MCHC RDW Plt Count Neut % (Auto) Lymph % (Auto) [place] % (Auto) Eos % (Auto) Baso % (Auto) Neut # (Auto) Lymph # (Auto) [place] # (Auto) Eos # (Auto) Baso # (Auto) PT INR Sodium Potassium Chloride Carbon Dioxide BUN Creatinine Estimated GFR BUN/Creatinine Ratio Glucose Calcium Magnesium Total Bilirubin Conjugated Bilirubin Unconjugated Bilirubin AST ALT Alkaline Phosphatase Troponin I < 0.012 NT-Pro-B Natriuret Pep 1550 H Total Protein Albumin Globulin Albumin/Globulin Ratio Assessment & Plan Assessment & Plan narrative: Marty Heard is an 83-year-old male with past medical history of type 2 diabetes, hypothyroidism, atrial fibrillation on Coumadin, hypertension, CKD III, and chronic low back pain who was brought in by EMS after a ground level fall. He was admitted for orthostatic hypotension, atrial fibrillation, and hyperglycemia. He remains profoundly orthostatic today with a drop in blood pressure of 50 points on standing. 1. Type 2 diabetes mellitus, with likely HHS, definite hyperglycemia, present on admission -patient with an elevated glucose to 432 on admission, mild RAFFAELE compared to baseline, as well as significantly orthostatic that responded to fluids. All combined this likely represents HHS although typically that requires a glucose of over 600. -will stop IV fluids today given worsening LE edema and negative LLE ultrasound. -most recent admission patient was fairly controlled with Lantus 25 units b.i.d., 7 units at mealtime, and high-dose sliding scale. Have resumed this and he has had decent control today with sugars in the 140-190 range. He has PMD follow up arranged for Wednesday, next week. 2. Atrial fibrillation on chronic anticoagulation, with rapid ventricular response, present on admission -continue to hold beta marvin at this time. He is only briefly rapid when standing and generally asymptomatic. Given no improvement in orthostasis with midodrine will try beta marvin in addition to see if this will help. Started metoprolol IR 12.5 mg twice daily. -INR now therapeutic. Held for 2 days as INR 3.3. Continue 5 mg daily. -Elevated proBNP today given worsening LE edema, however this may be venous stasis and given orthostatics currently avoiding lasix. 3. Orthostatic hypotension, present on admission. -suspected initially due to dehydration, uncontrolled diabetes and possible HHS as noted above. His sugars were improved but he was still orthostatic. Started midodrine also without much improvement. Will add beta marvin to see if controlling atrial fibrillation rate when standing will help instead. 4. Acute on chronic kidney disease, chronic stage III, present on admission -continue IV fluids noted above, acute portion likely secondary to relative dehydration from HHS or possibly low-flow state from low blood pressures. Cr 1.83 on admission, lowest Cr last admission was 1.2. Improved to 1.45 today. -hold Toradol for pain control in the setting of RAFFAELE. -avoid nephrotoxic medications 5. Chronic low back pain, -hold Toradol given RAFFAELE -continue PT 6. Hypothyroidism - continue levothyroxine 50 mcg. Code: DNR as specified by patient's POLST form. Surrogate decision maker is listed as his son. DVT: On Coumadin, INR therapeutic Dispo: Changed to inpatient. Anticipate discharge home with home health once orthostasis improves. Quality VTE Deep Vein Thrombosis/Pulmonary Embolism Present on Admission: No
--- NOTE | 2019-09-29 17:08 | PC.NURSE ---
Addendum entered by Celine Chery R.N. 09/29/19 23:26: No complaints verbalized by pt this evening shift other than chronic back pain 05/22. Pt has been conversant with staff and making occasional phone calls. Bed bath provided by CONTINUOUS ABSORPTION PROCESS OPERATOR. Pt prefers not to wear gown. Tylenol administered to treat back pain. Pt is able to move self independently in bed. Original Note: Pt awake and alert up in recliner @ beginning of shift. Dietary in to see patient and EKG completed per RT as per MD order. Pt admits to back pain 05/22, but declines offer for anaglesia. Son in to see patient and inform pt of spouse's visit to doctor appointment. Continuous pulse oximeter in place with room air saturation level 97-100%. Clear, but diminished breath sounds throughout. Edema to BL LE's. Passing flatus and rectal suppository administered as per pt request to assist with bowel function. Pt able to make needs and wants known to staff members. Calls appropriately.
[2019-09-29] MEDS: ACETAMINOPHEN 325 MG TABLET 650 MG PO (21:02)
[2019-09-30] VITALS (18 sets, daily range): BP systolic 88–155; BP diastolic 54–118; PULSE 88–122; RESP 15–18; TEMP 36.1–37.2; O2SAT 95–99
[2019-09-30] MEDS: MIDODRINE HCL 5 MG TABLET PO ×3 (05:43→18:09)
[2019-09-30 06:30] LABS: Add Manual Diff / Slide Review NO; Basophils Absolute Auto 0 /uL (0-100); Basophils Percent Auto 0.7 % (0-2); Eosinophils Absolute Auto 200 /uL (0-450); Hematocrit 39.5 % (41-53); Hemoglobin 13.3 g/dL (13.5-17.5); Lymphocytes Absolute Auto 2100 /uL (1100-4500); Lymphocytes Percent Auto 31.6 % (25-40); Mean Corpuscular HGB Conc 33.5 % (30-36); Mean Corpuscular Hemoglobin 29.3 PG (26-34); Mean Corpuscular Volume 87.5 fL (80-100); Monocytes Absolute Auto 600 /uL (0-900); Monocytes Percent Auto 9.6 % (3-14); Neutrophils Absolute Auto 3700 /uL (1500-7000); Neutrophils Percent Auto 55.1 % (50-75); Platelet Count 143 X10^3/uL (150-400); Red Blood Cell Count 4.52 X10^6/uL (4.5-5.9); Red Cell Distribution Width 14.1 % (11.6-14.8); White Blood Cell Count 6.7 X10^3/uL (4.5-11.0)
[2019-09-30] MEDS: LEVOTHYROXINE 50 MCG TABLET PO (06:33)
[2019-09-30 06:35] LABS: INR 1.6 (0.9-1.3); Prothrombin Time 17.9 SECONDS (10.1-12.7)
[2019-09-30 06:39] LABS: Alanine Aminotransferase 29 IU/L (<50); Albumin 3.4 g/dL (3.5-5.0); Albumin Globulin Ratio 1.1 (1.0-2.8); Alkaline Phosphatase 117 U/L (38-126); Aspartate Aminotransferase 46 IU/L (17-59); BUN Creatinine Ratio 16.8 (6-22); Bilirubin Total 0.9 mg/dL (0.2-1.3); Bilirubin Unconjugated 0.9 mg/dL (0.0-1.1); Blood Urea Nitrogen 25 mg/dL (9-20); Calcium 9.1 mg/dL (8.4-10.2); Carbon Dioxide 25 mmol/L (22-32); Chloride 109 mmol/L (98-107); Estimated Glomerular Filt Rate 44.9 mL/min (>60); Globulin 3.2 g/dL (1.7-4.1); Glucose 118 mg/dL (80-110); HEMOLYSIS < 15 (0-50); Magnesium 2.1 mg/dL (1.6-2.3); Potassium 3.6 mmol/L (3.4-5.1); Sodium 139 mmol/L (137-145); Total Protein 6.6 g/dL (6.3-8.2)
[2019-09-30 08:27] LABS: Hemoglobin A1C% w Est Avg Glu 9.4 % (4.0-6.0)
--- NOTE | 2019-09-30 10:21 | PT.IPTN ---
Current Diagnoses Type 2 diabetes mellitus with hyperosmolarity without nonketotic hyperglycemic-hyperosmolar coma (NKHHC) (09/29/19) Physical Therapy Treatment Note M2 PT-IP Current Condition Start: 09/28/19 12:57 Freq: NEEDED Status: Active Protocol: Document 09/28/19 11:11 DCW (Rec: 09/28/19 13:18 DCW [id number]) Physical Therapy Current Condition Current Condition Evaluation Date 09/28/19 Treatment Diagnosis GLF, Orthostasis Onset Date 09/27/19 M3 PT-IP Subjective Start: 09/28/19 12:57 Freq: NEEDED Status: Active Protocol: Document 09/30/19 10:04 KS (Rec: 09/30/19 11:54 KS [id number]) Subjective Physical Therapy Visit Type Type Treatment Note Visit Start Time 10:04 Visit Stop Time 10:21 Total Visit Minutes 17 Number of PET CARE ATTENDANT Visits 1 Physical Therapy Visit Comments Patient Comments Pt agreeable to work w/ therapy. M4 PT-IP Mobility and Gait Start: 09/28/19 12:57 Freq: NEEDED Status: Active Protocol: Document 09/30/19 10:04 KS (Rec: 09/30/19 11:54 KS [id number]) PT-Bed Mobility Assessment Scooting Scooting to Edge of Bed Standby Assistance PT-Transfer Assessment Sit to and From Stand Sit to and from Stand Contact Guard Assistance,1 Person Assistance,Use of Upper Extremities Equipment Transfer Assistive Device Gait Belt,Front Wheeled Walker Orthotic/Prosthetic Devices or Brace: No Transfers Transfer Destination Chair Transfer Technique pt ambulated w/ FWW. Transfer Ability Level of Assist Contact Guard Assistance,1 Person Assistance,Use of Upper Extremities Comments Mobility Comments Pt on toilet upon arrival from therapy and just received shower from STRAIGHTENING ROLL OPERATOR still present in room. Pt reported high level of fatigue but agreed to ambulate to chair. Pt CGA and cues for sit<>stand w/ FWW. Pt then ambulated ~8ft from toilet to chair w/ FWW and CGA . Pt reported increased fatigue but denied dizziness or lightheadedness while standing/ambulating. CGA for stand <>sit in chair. Pt then agreed to perform LE strengthening including ankle pumps, quad sets, and glute sets. Pts BP sittin/58 MO 100, left in chair w/ nurse in room. Gait Assessment Gait Gait Assistance Required: Contact Guard Assist,1 Person Assist Distance (Feet) 8 Able to Maintain Weight Bearing Status Yes During Gait Assistive Devices Assistive Device Gait Belt,Front Wheeled Walker Orthotic/Prosthetic Devices or Brace: No Gait Deviations General Gait Pattern Antalgic,Decreased Stride Length,Decreased Feet Clearance,Flexed Trunk Factors Limiting Gait Function Factors Limiting Gait Function Decreased Activity Tolerance, Decreased Strength,Pain,Poor Balance Stair Climbing Assessment Comments Stair Climbing Comments Not tested PT-Balance Assessment Sitting Balance and Reactions Static Sitting Balance Ability Good Dynamic Sitting Balance Ability Good Standing Balance and Reactions Static Standing Balance Ability Fair Dynamic Standing Balance Ability Fair Device Used FWW M5 PT-IP Objective Assessments Start: 09/28/19 12:57 Freq: NEEDED Status: Active Protocol: Document 09/28/19 11:11 DCW (Rec: 09/28/19 13:18 DCW [id number]) Orientation Orientation/Cognition Level of Alertness Alert Orientation Name,Birthday,Date,Place, Situation Language Function Ability No Deficits Noted Safety Awareness Understands Safety Issues Memory Description No Deficits Noted Gross Range of Motion Upper Extremity ROM Assessment Within Functional Limits Lower Extremity ROM Assessment Within Functional Limits Strength Lower Extremity Strength Assessment Bilaterally Impaired Hip 4/5 Knee 4/5 Ankle 4/5 M6 PT-IP Treatment Start: 09/28/19 12:57 Freq: NEEDED Status: Active Protocol: Document 09/30/19 10:04 KS (Rec: 09/30/19 11:54 KS [id number]) Physical Therapy Treatment Exercises Exercises Ankle Pumps,Gluteal Sets,Quad Sets M7 PT-IP Assessment and Plan Start: 09/28/19 12:57 Freq: NEEDED Status: Active Protocol: Document 09/30/19 10:04 KS (Rec: 09/30/19 11:54 KS [id number]) PT Summary Assessment and Plan Potential Rehabilitation Potential Fair Status of Condition at Evaluation Unstable Summary Impairments Pain,Strength,Sensation,Bed Mobility,Transfers,Gait, Activity Tolerance Assessment Summary Pt continues to have very low tolerance for activity and was only able to ambulate from toilet to chair ~8 ft today and complete brief LE strengthening exercises. CGA and cues for sit<>stand<>sit and CGA for ambulation w/ FWW. Pt would benefit from HH or possibly SNF to improve strength and tolerance for activity depending on progression and orthostasis. Goals Bed Mobility Goal Standby Assistance Transfer Goal Standby Assistance Gait Goal Standby Assistance Gait Distance 100' /c FWW Days to Meet Goals 3 Frequency of Treatment Frequency Of Treatment Once a Day Treatment Plan Physical Therapy Treatment Plan Bed Mobility Training,Gait Training,Therapeutic Exercise, Balance Retraining Recommendations To Nursing Amount of Assist Needed Standby Assistance,1 Person Assist Discharge Recommendations PT Discharge Recommendations Home Health,SNF Rehab Other Discharge Recommendations HH vs SNF pending stabilization of pt's A-fib and Orthostasis. Transportation Needs at Discharge Private Vehicle
[2019-09-30] MEDS: FERROUS SULFATE 325 MG TABLET PO (10:22)
[2019-09-30] MEDS: INSULIN GLARGINE 100 UNIT/ML 3ML PEN 25 UNIT SUBCUT ×2 (10:23→20:42)
[2019-09-30] MEDS: INSULIN ASPART 100 UNIT/ML INSULN PEN 7 UNIT SUBCUT ×2 (10:24→11:54)
[2019-09-30] MEDS: SODIUM CHLORIDE 0.9% FLUSH 10 ML IV ×3 (10:24→20:44)
[2019-09-30] MEDS: DIGOXIN 500 MCG/2 ML AMPUL IV (10:58)
--- NOTE | 2019-09-30 11:12 | PM.PN.1 ---
Subjective Subjective Date Patient Seen: 09/30/19 Interval history: Marty Heard is an 83-year-old male with past medical history of type 2 diabetes, hypothyroidism, atrial fibrillation on Coumadin, hypertension, CKD III, and chronic low back pain who was brought in by EMS after a ground level fall. He was admitted for orthostatic hypotension, atrial fibrillation, and hyperglycemia. After initiating Lantus along with mealtime insulin his blood sugars are decently controlled with all below 200. He got mildly dizzy after standing with physical therapy for prolonged period of time and his orthostatics are still positive although somewhat improved on midodrine. His heart rate was elevated after prolonged standing and patient was started on low-dose metoprolol. Overnight his heart rate was up in the 160s. Exam Vital Signs (past 8 hours): - 09/30/19 04:46 09/30/19 04:50 09/30/19 08:00 Temperature 98.1 F 97 F L Pulse Rate 93 H 104 H Pulse Rate [Orthostatic Lying] Pulse Rate [Orthostatic Sitting] Pulse Rate [Orthostatic Standing] Respiratory Rate 18 15 Blood Pressure 122/80 142/118 H Blood Pressure [Orthostatic Lying] Blood Pressure [Orthostatic Sitting] Blood Pressure [Orthostatic Standing] Pulse Oximetry 96 96 99 09/30/19 10:00 09/30/19 10:58 Temperature Pulse Rate 122 H Pulse Rate [Orthostatic Lying] 101 H Pulse Rate [Orthostatic Sitting] 105 H Pulse Rate [Orthostatic Standing] 108 H Respiratory Rate Blood Pressure Blood Pressure [Orthostatic Lying] 114/54 L Blood Pressure [Orthostatic Sitting] 116/73 Blood Pressure [Orthostatic Standing] 101/56 L Pulse Oximetry Oxygen Delivery Method Room Air Oxygen Flow Rate 0 Narrative Exam Narrative: General: Alert and pleasant in no acute distress Lungs: Clear Heart: Irregularly irregular Extremities: Chronic edema lower extremities Neurological: Nonfocal Objective Labs Result Diagrams: 09/30/19 06:20 09/30/19 06:20 Labs: Laboratory Results - last 24 hr 09/29/19 09/29/19 09/30/19 12:25 12:25 06:20 WBC 6.7 RBC 4.52 Hgb 13.3 L Hct 39.5 L MCV 87.5 MCH 29.3 MCHC 33.5 RDW 14.1 Plt Count 143 L Neut % (Auto) 55.1 Lymph % (Auto) 31.6 Crowley % (Auto) 9.6 Eos % (Auto) 3.0 Baso % (Auto) 0.7 Neut # (Auto) 3700 Lymph # (Auto) 2100 Crowley # (Auto) 600 Eos # (Auto) 200 Baso # (Auto) 0 PT INR Sodium Potassium Chloride Carbon Dioxide BUN Creatinine Estimated GFR BUN/Creatinine Ratio Glucose Hemoglobin A1c Calcium Magnesium Total Bilirubin Conjugated Bilirubin Unconjugated Bilirubin AST ALT Alkaline Phosphatase Troponin I < 0.012 NT-Pro-B Natriuret Pep 1550 H Total Protein Albumin Globulin Albumin/Globulin Ratio 09/30/19 09/30/19 09/30/19 06:20 06:20 06:20 WBC RBC Hgb Hct MCV MCH MCHC RDW Plt Count Neut % (Auto) Lymph % (Auto) Crowley % (Auto) Eos % (Auto) Baso % (Auto) Neut # (Auto) Lymph # (Auto) Crowley # (Auto) Eos # (Auto) Baso # (Auto) PT 17.9 H D INR 1.6 H Sodium 139 Potassium 3.6 Chloride 109 H Carbon Dioxide 25 BUN 25 H Creatinine 1.49 H Estimated GFR 44.9 L BUN/Creatinine Ratio 16.8 Glucose 118 H Hemoglobin A1c 9.4 H Calcium 9.1 Magnesium 2.1 Total Bilirubin 0.9 Conjugated Bilirubin 0.0 Unconjugated Bilirubin 0.9 AST 46 ALT 29 Alkaline Phosphatase 117 Troponin I NT-Pro-B Natriuret Pep Total Protein 6.6 Albumin 3.4 L Globulin 3.2 Albumin/Globulin Ratio 1.1 Assessment & Plan Assessment & Plan narrative: Marty Heard is an 83-year-old male with past medical history of type 2 diabetes, hypothyroidism, atrial fibrillation on Coumadin, hypertension, CKD III, and chronic low back pain who was brought in by EMS after a ground level fall. He was admitted for orthostatic hypotension, atrial fibrillation, and hyperglycemia. He remains profoundly orthostatic today with a drop in blood pressure of 50 points on standing. 1. Type 2 diabetes mellitus, with likely HHS, definite hyperglycemia, present on admission -patient with an elevated glucose to 432 on admission, mild RAFFAELE compared to baseline, as well as significantly orthostatic that responded to fluids. All combined this likely represents HHS although typically that requires a glucose of over 600. -received IV hydration, IV fluids stopped 09/28 -patient is on Novolin 70/30 FlexPen at home -most recent admission patient was fairly controlled with Lantus 25 units b.i.d., 7 units at mealtime, and high-dose sliding scale. Have resumed this and he has had decent control today with sugars in the 140-190 range. He has PMD follow up arranged for Wednesday, next week. 2. Chronic atrial fibrillation on chronic anticoagulation, with rapid ventricular response, present on admission -started metoprolol IR 12.5 mg twice daily. -added digoxin on 09/29, total loading dose of a 1.0 mg then 0.125 mg p.o. daily. -INR was held for 2 days as INR 3.3. INR subsequently low. -Restarted warfarin 5 mg daily on 09/28. -recheck INR on 10/01 -check digoxin level on 10/06 3. Orthostatic hypotension, severe, present on admission. -suspected initially due to dehydration, uncontrolled diabetes and possible HHS as noted above. His sugars were improved but he remained orthostatic. =Started midodrine 5 mg t.i.d. and beta-marvin/digoxin for AFib rate control 4. Acute on chronic kidney disease, chronic stage III, present on admission -acute component resolved with IV hydration -avoid nephrotoxic medications 5. Chronic low back pain, -continue PT -acetaminophen as needed 6. Hypothyroidism - continue levothyroxine 50 mcg. Code: DNR as specified by patient's POLST form. Surrogate decision maker is listed as his son. DVT: On Coumadin Dispo: Changed to inpatient. Anticipate discharge home with home health once orthostasis and AFib rate control improves. Quality VTE Deep Vein Thrombosis/Pulmonary Embolism Present on Admission: No
[2019-09-30] MEDS: METOPROLOL IR 25 MG TABLET 12.5 MG PO ×2 (11:52→19:53)
[2019-09-30] MEDS: INSULIN ASPART 100 UNIT/ML INSULN PEN SUBCUT ×2 (11:55→20:44)
[2019-09-30] MEDS: ACETAMINOPHEN 325 MG TABLET 650 MG PO (12:10)
[2019-09-30] MEDS: DIGOXIN 500 MCG/2 ML AMPUL 250 MCG IV ×2 (16:46→21:46)
--- NOTE | 2019-09-30 17:07 | DI.CT.S_ITS ---
PROCEDURE: CT HEAD/BRAIN WO CON INDICATIONS: dec LOC TECHNIQUE: Noncontrast 4.5 mm thick angled axial sections acquired from the foramen magnum to the vertex, with coronal and sagittal reformats. For radiation dose reduction, the following was used: automated exposure control, adjustment of mA and/or kV according to patient size. COMPARISON: None. FINDINGS: Image quality: Excellent. CSF spaces: Basal cisterns are patent. No extra-axial fluid collections. The ventricles are symmetric in size and shape. Brain: No intracranial bleeds or masses. There is cerebral volume loss for age, with resultant ventricular and sulcal prominence. There are periventricular and deep white matter chronic small vessel ischemic changes. There is a remote right frontal lobe infarction seen. There is intracranial internal carotid artery atherosclerosis. Skull and face: Calvarium and visualized facial bones appear intact, without suspicious lesions. Sinuses: Visualized sinuses and mastoids are clear. IMPRESSION: No acute intracranial process is seen. If there is strong clinical suspicion for an acute stroke, please consider an MRI for further evaluation, as it is more sensitive (assuming that there is no contraindication to MRI). Remote right frontal lobe infarction. Note is made of age-appropriate brain parenchymal volume loss and chronic small vessel ischemic changes. Dictated by: Tony Mckinney M.D. on 09/30/2019 at 16:38 Approved by: Tony Mckinney M.D. on 09/30/2019 at 16:39
--- NOTE | 2019-09-30 17:07 | PC.NURSE ---
Addendum entered by Celine Chery R.N. 09/30/19 21:19: States back pain is okay, states headache is mild and refuses any and all offers for analgesia. Orthostatics completed and pt ambulated with staff assistance into bathroom for void and stool. Returned to bed. Has remained wakeful and conversant this evening following CT scan. Addendum entered by Celine Chery R.N. 09/30/19 19:55: PALEOBOTANIST, Oliva, reports pt's heartrate as high as 150 while pt is awake, but resting quietly in bed. HS metoprolol administered and will continue to monitor. Addendum entered by Celine Chery R.N. 09/30/19 18:04: Dr. Castañeda in to see patient. Okay to given warfarin per MD. Addendum entered by Celine Chery R.N. 09/30/19 17:49: Blood sugar rechecked for 89. Pt remains difficult to keep verbally engaged and awake. Multiple staff members transfer pt from recliner to bed for transport to CT. Pt now fully awake and conversant. Tearful. Pt was reassured in process and rationale. Pt is able to bear weight and assist with transfer from chair to bed. CT scan of head completed and pt to room 208 for more careful observation. Encouraged pt to eat evening meal to manage blood sugar. Pt awake and able to feed self. Dr. Castañeda aware warfarin not given pending CT results. Prandial insulin held pending pt's consumption of evening meal. Original Note: Pt c/o soreness right ac where iv site is established. Pt up in chair. c/o frontal headache. Noted pt received tylenol previously and headache persists. Dr. Castañeda was informed. Blood sugar 98. Pt becomes shaky and very sleepy and rouses to voice, but does not remain awake. BP 123/70 HR 92 with room air saturation 99%. Dinner set up for pt, but pt remains difficult to keep awake and engaged. Dr. Castañeda informed. MD to order stat head CT.
[2019-09-30] MEDS: WARFARIN 5 MG TABLET PO (18:08)
[2019-10-01] VITALS (8 sets, daily range): BP systolic 89–141; BP diastolic 51–80; PULSE 88–113; RESP 18–20; TEMP 36.5–37; O2SAT 94–99
[2019-10-01] MEDS: ACETAMINOPHEN 325 MG TABLET 650 MG PO ×2 (03:25→08:54)
[2019-10-01] MEDS: MIDODRINE HCL 5 MG TABLET PO ×2 (06:00→12:04)
[2019-10-01] MEDS: METOPROLOL IR 25 MG TABLET 12.5 MG PO (08:53)
[2019-10-01] MEDS: FERROUS SULFATE 325 MG TABLET PO (08:53)
[2019-10-01] MEDS: INSULIN GLARGINE 100 UNIT/ML 3ML PEN 25 UNIT SUBCUT (08:54)
[2019-10-01] MEDS: INSULIN ASPART 100 UNIT/ML INSULN PEN 7 UNIT SUBCUT ×2 (08:54→12:04)
--- NOTE | 2019-10-01 10:37 | PM.DS.1 ---
History of Present Illness History of Present Illness Chief complaint: GLF,low bp Narrative: Marty Heard is an 83-year-old male with past medical history of type 2 diabetes, hypothyroidism, atrial fibrillation on Coumadin, hypertension, CKD III, and chronic low back pain who was brought in by EMS after a ground level fall. Patient was getting up with his walker an was trying to let his dogs out and ultimately got his walker tangled up in a chair and he fell to the ground. He denies hitting his head and he had no loss of consciousness. As result of the fall he has a small skin tear to left side of his hand. Patient states he has chronic lightheadedness when standing. He was prescribed midodrine upon discharge from his hospitalization for orthostatic hypotension, and his metoprolol and Lasix were held at that time. Patient does not recall his current medications but thinks his water pill has been restarted. He is not sure if he is still taking his beta-marvin. He has been having difficulty as well controlling his blood sugar recently and his glucose has been very high common rarely below 200 and sometimes into the 400s. He feels generally weak, but this has really been unchanged over the past few months. Patient was admitted in July for sepsis secondary to E coli bacteremia, as well as pancreatitis. During that hospitalization he was profoundly orthostatic and his metoprolol and furosemide were held and the patient was started on midodrine. Upon discharge the patient was still slightly orthostatic with a blood pressure drop of around 20 points but he was asymptomatic at that point. He is still minimally symptomatic at this time In the emergency room, per ED report patient was initially hypotensive, even more hypotensive upon standing. He was given a L of fluids with improvement in his blood pressure, although he still drops close to 40 points on his blood pressure when standing. Further when standing for prolonged period of time the patient was noted on telemetry to be going into the 140s heart rate with his atrial fibrillation. When his heart rate was fast the patient did complain of dizziness and room spinning sensation but this resolved fairly quickly and the patient was able to ambulate. His initial CBC was unremarkable, coagulation studies show an elevated INR at 3.3, creatinine of 1.83 up from seemingly his baseline around 1.4-1.5 but only mildly. His glucose was 432. Given patient's medical comorbidities, and mainly uncontrolled atrial fibrillation he will be admitted under observation status for further medication adjustment given orthostasis, as well as controlling his hyperglycemia. Discharge Providers Provider Date of admission: 09/29/19 10:35 Discharge Date: 10/01/19 Primary care physician: Lakisha Dangelo MD Consults: 09/27/19 22:45 Consult to Physical Therapy Evaluate & Treat Comment: Physician Instructions: Evaluate and Treat 09/28/19 11:23 Consult to Dietitian, Adult Routine Comment: pt cares for his who has dementia. son helps Reason For Exam: blood sugar management. 09/28/19 11:26 Consult to Home Health Routine Comment: blood sugar/dietary management. Reason For Exam: resume HH services: add RN for med management and 09/28/19 12:03 Consult to Dietitian, Adult Routine Comment: Reason For Exam: uncontrolled Dm 10/01/19 10:03 Consult to Home Health Routine Comment: Reason For Exam: FWW for home use Discharge provider: Efren Castañeda MD Summary Hospital Course Discharge Diagnosis: 1. Type 2 diabetes with hyperglycemic hyperosmolar state 2. Chronic atrial fibrillation with RVR 3. Severe orthostatic hypotension, chronic 4. Chronic anticoagulation 5. Acute kidney injury 6. Chronic kidney disease stage 3 7. Chronic low back pain 8. DNR code status Hospital Course: Marty Heard is an 83-year-old male with past medical history of type 2 diabetes, hypothyroidism, atrial fibrillation on Coumadin, hypertension, CKD III, and chronic low back pain who was brought in by EMS after a ground level fall. He was admitted for orthostatic hypotension, atrial fibrillation, and hyperglycemia. He remains profoundly orthostatic today with a drop in blood pressure of 50 points on standing. 1. Type 2 diabetes mellitus, with likely HHS, definite hyperglycemia, present on admission -patient with an elevated glucose to 432 on admission, mild RAFFAELE compared to baseline, as well as significantly orthostatic that responded to fluids. All combined this likely represents HHS although typically that requires a glucose of over 600. -received IV hydration, IV fluids stopped 09/28 -patient is on Novolin 70/30 FlexPen at home -most recent admission patient was fairly controlled with Lantus 25 units b.i.d., 7 units at mealtime, and high-dose sliding scale. Have resumed this and he has had decent control with sugars in the 140-190 range. -on discharge his Novolin 730 is increased to 35 units twice daily -He has PMD follow up arranged for 10/02 2. Chronic atrial fibrillation on chronic anticoagulation, with rapid ventricular response, present on admission -noted to be persistently tachycardic and also his heart rate tends to go up significantly with standing -his echo on 07/11/2019 showed LVH, LVEF 60-65%, mild TR -started metoprolol IR 12.5 mg twice daily. -added digoxin on 09/29, total loading dose of a 1.0 mg then 0.125 mg p.o. daily. -INR was held for 2 days as INR 3.3. INR subsequently low. -Restarted warfarin 5 mg daily on 09/28. -recheck INR at time of 10/02 hospital follow-up with PCP -check digoxin level on 10/06 3. Orthostatic hypotension, severe, present on admission. -suspected initially due to dehydration, uncontrolled diabetes and possible HHS as noted above. His sugars were improved but he remained orthostatic in spite of adequate volume resuscitation. -not clear if AFib is contributing to drops in his blood pressure -Started midodrine 5 mg t.i.d. and beta-marvin/digoxin for AFib rate control -on a.m. of discharge orthostatic vitals are improved, still drops his systolic by about 40 points from 140 supine to 97 sitting and 98 standing, and heart rate increased from around 90 lying to 110 standing -however, patient does not feel lightheaded or dizzy with standing and able to ambulate safely with PT standby assistance. Per PT note, his activity tolerance is very low and yesterday he was only able to ambulate from toilet to chair about 8 ft. We have arranged to resume home health PT and RN. 4. Acute on chronic kidney disease, chronic stage III, present on admission -creatinine 1.83 on admission and improved to 1.49 with IV hydration -avoid nephrotoxic medications 5. Chronic low back pain, mild to moderate headache -acetaminophen and tramadol as needed 6. Hypothyroidism - continue levothyroxine 50 mcg. 7. Episode of unresponsiveness -on 09/29 patient was briefly unresponsive, head CT without acute findings, and he later woke up on his own and was acting normally Status at Discharge Cognitive/behavioral status at discharge: oriented Functional status at discharge: uses cane/walker Overall status at discharge: patient is progressing back to baseline Time Spent with Patient Time spent: Greater than 30 minutes Exam Vital Signs (past 8 hours): - 10/01/19 05:00 10/01/19 06:00 10/01/19 07:00 Temperature 98.6 F Pulse Rate 107 H Pulse Rate [Orthostatic Lying] 93 H Pulse Rate [Orthostatic Sitting] 102 H Pulse Rate [Orthostatic Standing] 113 H Respiratory Rate 20 Blood Pressure 130/74 Blood Pressure [Orthostatic Lying] 141/80 H Blood Pressure [Orthostatic Sitting] 97/58 L Blood Pressure [Orthostatic Standing] 98/51 L Pulse Oximetry 99 99 10/01/19 09:00 Temperature 97.7 F Pulse Rate 93 H Pulse Rate [Orthostatic Lying] Pulse Rate [Orthostatic Sitting] Pulse Rate [Orthostatic Standing] Respiratory Rate 18 Blood Pressure 141/80 H Blood Pressure [Orthostatic Lying] Blood Pressure [Orthostatic Sitting] Blood Pressure [Orthostatic Standing] Pulse Oximetry 99 Oxygen Delivery Method Room Air Oxygen Flow Rate 0 Objective Labs Result Diagrams: 09/30/19 06:20 09/30/19 06:20 Discharge Plan Discharge Plan Patient Disposition: Home Discharge comment: Have digoxin level checked in 5-7 days. Have INR checked at your Wednesday appointment. We increased your insulin dosing slightly. We are ordering home health PT and RN. Discharge orders & Medications Prescriptions: New digoxin 125 mcg (0.125 mg) Tablet 0.125 mg PO DAILY Qty: 30 RF: 0 metoprolol tartrate 25 mg Tablet 12.5 mg PO BID Qty: 30 RF: 0 Continued tramadol 50 MG tablet 100 mg PO TID PRN (Reason: pain) Qty: 0 RF: 0 ferrous sulfate [Iron (ferrous sulfate)] 325 mg (65 mg iron) Tablet 325 mg PO DAILY RF: 0 midodrine 5 mg Tablet 5 mg PO 0600,1200,1800 Qty: 15 RF: 0 levothyroxine 50 mcg Tablet 50 mcg PO MOTUWETHFRSA RF: 0 warfarin [Coumadin] 5 mg Tablet 5 mg PO BEDTIME RF: 0 Changed Novolin 70-30 FlexPen U-100 100 unit/mL (70-30) Insulin Pen 35 unit subcut BIDAC Qty: 0 RF: 0 Follow up/Referrals: Lakisha Dangelo MD [Primary Care Provider] - Discharge Health Status Multidrug resistant organism: No MDRO Diet/Activity/Treatments Diet: Diet as Tolerated Visit Report/Discharge Packet Instructions: How to Prevent Falls, DI for Abrasion, DI for Hyperglycemia -- Adult Discharge Data Primary Care Provider: Lakisha Dangelo VTE Deep Vein Thrombosis/Pulmonary Embolism Present on Admission: No
--- NOTE | 2019-10-01 11:08 | CM.DPC ---
DCP Cont: Patient has discharge orders for today. Met with patient during team rounds, alert and oriented. He is eager to go home. He is aware that he will be resuming home health. Left a message with [facility], that patient is being discharged today. Went ahead and faxed over discharge summary, as well as resumption orders adding RN. P: Patient is to be discharged home today with [facility]. Marya Sol RN/Highway Engineer
--- NOTE | 2019-10-01 11:25 | PT.IPTN ---
Current Diagnoses Type 2 diabetes mellitus with hyperosmolarity without nonketotic hyperglycemic-hyperosmolar coma (NKHHC) (09/29/19) Physical Therapy Treatment Note M2 PT-IP Current Condition Start: 09/28/19 12:57 Freq: NEEDED Status: Active Protocol: Document 09/28/19 11:11 DCW (Rec: 09/28/19 13:18 DCW [id number]) Physical Therapy Current Condition Current Condition Evaluation Date 09/28/19 Treatment Diagnosis GLF, Orthostasis Onset Date 09/27/19 M3 PT-IP Subjective Start: 09/28/19 12:57 Freq: NEEDED Status: Active Protocol: Document 10/01/19 10:53 SP (Rec: 10/01/19 11:51 SP [id number]) Subjective Physical Therapy Visit Type Type Treatment Note Visit Start Time 10:53 Visit Stop Time 11:25 Total Visit Minutes 32 Number of REGISTERED RESPIRATORY THERAPIST Visits 2 Therapy Pain Assessment Pain When Pain Assessed During Mobility Location Back Intensity 4 Scale Used Numeric (0 - 10) Pain Behaviors Facial Grimacing M4 PT-IP Mobility and Gait Start: 09/28/19 12:57 Freq: NEEDED Status: Active Protocol: Document 10/01/19 10:53 SP (Rec: 10/01/19 11:51 SP [id number]) PT-Bed Mobility Assessment Rolling Type of Rolling Roll to Left Level of Assist Standby Assistance Supine to Sit Supine to Sit Standby Assistance,Head of Bed Elevated,Bedrails Scooting Scooting to Edge of Bed Standby Assistance PT-Transfer Assessment Sit to and From Stand Sit to and from Stand Contact Guard Assistance,1 Person Assistance,Use of Upper Extremities Equipment Transfer Assistive Device Gait Belt,Front Wheeled Walker Orthotic/Prosthetic Devices or Brace: No Transfers Transfer Destination Chair Transfer Technique Pt ambulated using FWW Transfer Ability Level of Assist Standby Assistance,Contact Guard Assistance,Use of Upper Extremities Comments Mobility Comments Pt was inclined in bed when arrived. Pt requested HOB remain inclined 30deg and reposition tilt to L 15 deg to assimulate home positioning on L side sleeps and has rails /posts at home to use for mobility so utilized bed rails for self mobility support durign tx SBA supine>sitting, scoot EOB SBA. Sit to stand CGA using BUE. Assess vitals in all positions: supine BP 124/59 HR 92 SaO2 99% on room air, seated at EOB BP 133/88 HR 98 SaO2 99% RA, standing BP 122/74 HR 112. Pt stated no dizziness during mobility. Pt step pivoted to chair and requested seated rest in chair CGA, stand<> sit CGA initally then decreased to SBA with good hand placement with slow descent into chair. After seated 2 min rest, once in standing instructed standing LE exerises for pre gait warm up,see comments then ambulated further distance chair to door and back 30 ft CGA initially decreased to SBA then returned to chair for rest break aprox 4 min secondary to decreased LE strength and activity tolerance. Pt was able to walk a second time 30 ft across room and back again. Pt was up in chair with call light, chair alarm armed with all needs in reach. Care mgt team in room when left to prepare for DC planning. Pt is ok to return home with son and to assist him when medicall stable. PT recommending home health PT to improved strength to increase functional independence during mobility. Gait Assessment Gait Gait Assistance Required: Standby Assistance,Contact Guard Assist Distance (Feet) 30 Able to Maintain Weight Bearing Status Yes During Gait Assistive Devices Assistive Device Gait Belt,Front Wheeled Walker Orthotic/Prosthetic Devices or Brace: No Gait Deviations General Gait Pattern Antalgic,Decreased Stride Length,Decreased Feet Clearance,Flexed Trunk Factors Limiting Gait Function Factors Limiting Gait Function Decreased Activity Tolerance, Decreased Strength,Pain,Poor Balance Comments Gait Comments See mobility comments Stair Climbing Assessment Comments Stair Climbing Comments No stairs at home, ramp to enter. PT-Balance Assessment Sitting Balance and Reactions Static Sitting Balance Ability Good Dynamic Sitting Balance Ability Good Standing Balance and Reactions Static Standing Balance Ability Fair Dynamic Standing Balance Ability Fair Device Used FWW M5 PT-IP Objective Assessments Start: 09/28/19 12:57 Freq: NEEDED Status: Active Protocol: Document 09/28/19 11:11 DCW (Rec: 09/28/19 13:18 DCW [id number]) Orientation Orientation/Cognition Level of Alertness Alert Orientation Name,Birthday,Date,Place, Situation Language Function Ability No Deficits Noted Safety Awareness Understands Safety Issues Memory Description No Deficits Noted Gross Range of Motion Upper Extremity ROM Assessment Within Functional Limits Lower Extremity ROM Assessment Within Functional Limits Strength Lower Extremity Strength Assessment Bilaterally Impaired Hip 4/5 Knee 4/5 Ankle 4/5 M6 PT-IP Treatment Start: 09/28/19 12:57 Freq: NEEDED Status: Active Protocol: Document 10/01/19 10:53 SP (Rec: 10/01/19 11:51 SP [id number]) Physical Therapy Treatment Exercises Exercises Ankle Pumps Other Treatments Other Treatment Performed Standing march, heel raises pre gait using FWW for support CGA. M7 PT-IP Assessment and Plan Start: 09/28/19 12:57 Freq: NEEDED Status: Active Protocol: Document 10/01/19 10:53 SP (Rec: 10/01/19 11:51 SP [id number]) PT Summary Assessment and Plan Potential Rehabilitation Potential Fair Status of Condition at Evaluation Unstable Summary Impairments Pain,Strength,Sensation,Bed Mobility,Transfers,Gait, Activity Tolerance Assessment Summary Pt required SBA with support of bed elevated/tilted (see comments), SBA-CGA sit <> stand using FWW, transfer and gait using FWW CGa initially then decreased to SBA further distance 30 ft (room distance) x2 with rest break between distance secondary to decreased strength and activtiy tolerance. Pt would benefit from HHPT. Pt did not show signs of orthostasis during tx today. Is able to return home with family to assist when medically stable. Pt has a FWW at home will not need to dispense. Goals Bed Mobility Goal Standby Assistance Transfer Goal Standby Assistance Gait Goal Standby Assistance Gait Distance 100' /c FWW Days to Meet Goals 3 Frequency of Treatment Frequency Of Treatment Once a Day Treatment Plan Physical Therapy Treatment Plan Bed Mobility Training,Gait Training,Therapeutic Exercise, Balance Retraining Other Recommendations and Next Treatment ambulation, bed mobility, Focus MONITOR BP Recommendations To Nursing Amount of Assist Needed Standby Assistance,1 Person Assist Discharge Recommendations PT Discharge Recommendations Home Health Other Discharge Recommendations HHPT Transportation Needs at Discharge Private Vehicle
[2019-10-01] MEDS: TRAMADOL 50 MG TABLET PO (12:03)
[2019-10-01] MEDS: DIGOXIN 0.125 MG TABLET PO (12:04)
[2019-10-01] MEDS: INSULIN ASPART 100 UNIT/ML INSULN PEN SUBCUT (12:05)
--- NOTE | 2019-10-01 12:31 | PC.NURSE ---
preparing for discharge- lengthy review with pt re: post hospitalization plan and medication review- all questions answered to his satisfaction and pt getting dressed at present to leave
== END 2019-10-01 12:48 | disposition home health service (06) | DRG 638 ==
LOC: ED 15:12 → AC 18:03
PROVIDERS: Internal Medicine; Admitting Provider Internal Medicine; Emergency Provider Emergency Medicine; PCP Internal Medicine; Referring Provider Emergency Medicine; Visit Provider Internal Medicine
DX: E11.00 Type 2 diabetes mellitus with hyperosmolarity without nonketotic hyperglycemic-hyperosmolar coma (NKHHC) (principal); N17.9 Acute kidney failure, unspecified; I48.20 Chronic atrial fibrillation, unspecified; I12.9 Hypertensive chronic kidney disease with stage 1 through stage 4 chronic kidney disease, or unspecified chronic kidney disease; N18.3 Chronic kidney disease, stage 3 (moderate); I95.1 Orthostatic hypotension; G89.29 Other chronic pain; E03.9 Hypothyroidism, unspecified; Z79.01 Long term (current) use of anticoagulants; W18.30XA Fall on same level, unspecified, initial encounter; Z85.46 Personal history of malignant neoplasm of prostate; Z66 Do not resuscitate; Z79.4 Long term (current) use of insulin; Z11.59 Encounter for screening for other viral diseases
CPT/HCPCS: 36415; 70450; 80048; 80053; 80076; 82550; 82962; 83036; 83735; 83880; 84484; 85025; 85610; 85730; 87635; 93005; 93010; 93971; 96360; 97110; 97116; 97163; 97530; 99284; G0378; J1160

== ENCOUNTER → 2019-10-04 15:49 | Outpatient (CLI) | payer OTHER, SELFPAY ==
[2019-09-27 18:58] VITALS: BMI 35.0
[2019-10-04 16:44] LABS: Add Manual Diff / Slide Review NO; Basophils Absolute Auto 0 /uL (0-100); Basophils Percent Auto 0.6 % (0-2); Eosinophils Absolute Auto 200 /uL (0-450); Eosinophils Percent Auto 3.4 % (2-4); Hematocrit 36.9 % (41-53); Hemoglobin 12.3 g/dL (13.5-17.5); Lymphocytes Absolute Auto 1900 /uL (1100-4500); Lymphocytes Percent Auto 27.6 % (25-40); Mean Corpuscular HGB Conc 33.3 % (30-36); Mean Corpuscular Hemoglobin 29.4 PG (26-34); Mean Corpuscular Volume 88.4 fL (80-100); Monocytes Absolute Auto 600 /uL (0-900); Monocytes Percent Auto 8.5 % (3-14); Neutrophils Absolute Auto 4100 /uL (1500-7000); Neutrophils Percent Auto 59.9 % (50-75); Platelet Count 174 X10^3/uL (150-400); Red Blood Cell Count 4.17 X10^6/uL (4.5-5.9); Red Cell Distribution Width 14.7 % (11.6-14.8); White Blood Cell Count 6.9 X10^3/uL (4.5-11.0)
[2019-10-04 17:06] LABS: Hemoglobin A1C% w Est Avg Glu 9.6 % (4.0-6.0)
[2019-10-04 18:11] LABS: Alanine Aminotransferase 28 IU/L (<50); Albumin 3.5 g/dL (3.5-5.0); Albumin Globulin Ratio 1.3 (1.0-2.8); Alkaline Phosphatase 128 U/L (38-126); Aspartate Aminotransferase 44 IU/L (17-59); BUN Creatinine Ratio 16.3 (6-22); Bilirubin Total 0.6 mg/dL (0.2-1.3); Blood Urea Nitrogen 27 mg/dL (9-20); Calcium 8.9 mg/dL (8.4-10.2); Carbon Dioxide 24 mmol/L (22-32); Chloride 105 mmol/L (98-107); Estimated Glomerular Filt Rate 39.7 mL/min (>60); Globulin 2.7 g/dL (1.7-4.1); Glucose 225 mg/dL (80-110); HEMOLYSIS < 15 (0-50); Potassium 5.2 mmol/L (3.4-5.1); Sodium 137 mmol/L (137-145); Total Protein 6.2 g/dL (6.3-8.2)
[2019-10-04 18:13] LABS: Digoxin 0.9 ng/mL (0.8-2.0)
== END ==
PROVIDERS: PCP Internal Medicine; Referring Provider Physician Assistant; Visit Provider Physician Assistant
DX: I48.20 Chronic atrial fibrillation, unspecified (principal); E16.2 Hypoglycemia, unspecified; N17.9 Acute kidney failure, unspecified; N18.3 Chronic kidney disease, stage 3 (moderate); I10 Essential (primary) hypertension; E11.9 Type 2 diabetes mellitus without complications; E03.9 Hypothyroidism, unspecified
CPT/HCPCS: 36415; 80053; 80162; 83036; 85025

== ENCOUNTER 2019-10-18 13:28 | Emergency (ER) | payer OTHER, SELFPAY ==
[2019-09-27 18:58] VITALS: BMI 35.0
[2019-10-18 13:40] VITALS: BP 106/71; PULSE 69; RESP 20; TEMP 36.1; O2SAT 98; BMI 37.3
[2019-10-18 13:55] LABS: Add Manual Diff / Slide Review NO; Basophils Absolute Auto 0 /uL (0-100); Basophils Percent Auto 0.7 % (0-2); Eosinophils Absolute Auto 100 /uL (0-450); Eosinophils Percent Auto 1.9 % (2-4); Hematocrit 38.1 % (41-53); Hemoglobin 12.5 g/dL (13.5-17.5); Lymphocytes Absolute Auto 1600 /uL (1100-4500); Lymphocytes Percent Auto 23.1 % (25-40); Mean Corpuscular HGB Conc 32.7 % (30-36); Mean Corpuscular Volume 88.9 fL (80-100); Monocytes Absolute Auto 500 /uL (0-900); Monocytes Percent Auto 6.9 % (3-14); Neutrophils Absolute Auto 4600 /uL (1500-7000); Neutrophils Percent Auto 67.4 % (50-75); Platelet Count 204 X10^3/uL (150-400); Red Blood Cell Count 4.29 X10^6/uL (4.5-5.9); Red Cell Distribution Width 14.6 % (11.6-14.8); White Blood Cell Count 6.8 X10^3/uL (4.5-11.0)
[2019-10-18 14:07] LABS: BUN Creatinine Ratio 15.8 (6-22); Blood Urea Nitrogen 30 mg/dL (9-20); Carbon Dioxide 33 mmol/L (22-32); Chloride 98 mmol/L (98-107); Estimated Glomerular Filt Rate 33.9 mL/min (>60); Glucose 380 mg/dL (80-110); HEMOLYSIS < 15 (0-50); Potassium 4.7 mmol/L (3.4-5.1); Sodium 136 mmol/L (137-145)
[2019-10-18 14:08] LABS: Prothrombin Time 67.8 SECONDS (10.1-12.7)
--- NOTE | 2019-10-18 14:22 | ED.RECABL ---
HPI - Recheck/Abnormal Lab/Rx General Chief Complaint: Recheck/Abnormal Lab/Rx Stated Complaint: INR high today Time Seen by Provider: 10/18/19 13:38 Source: patient Mode of arrival: Ambulatory Limitations: no limitations History of Present Illness HPI narrative: Patient is an 84-year-old male with history of atrial fibrillation on Coumadin and diabetes presenting with elevated INR of 6 sent from his PCP for evaluation. He denies any active bleeding or trauma he has no blood in stool no hematuria or recent head injury. He is complaining of being thirsty but denies all other complaints. It was checked this morning as a POC. He says his finger to the while to stop bleeding MD complaint: abnormal lab Related Data Home Medications Medication Instructions Recorded Confirmed tramadol 100 mg PO TID PRN #0 02/03/16 09/28/19 levothyroxine 50 mcg PO MOTUWETHFRSA 09/16/17 09/28/19 warfarin [Coumadin] 5 mg PO BEDTIME 07/20/18 09/28/19 ferrous sulfate [Iron (ferrous 325 mg PO DAILY 07/11/19 09/28/19 sulfate)] Previous Rx's Medication Instructions Recorded Novolin 70-30 FlexPen U-100 35 unit SUBCUT BIDAC #0 ml 10/01/19 digoxin 0.125 mg PO DAILY #30 tab 10/01/19 metoprolol tartrate 12.5 mg PO BID #30 tab 10/01/19 midodrine 5 mg PO 0600,1200,1800 #15 tab 10/01/19 Allergies Allergy/AdvReac Type Severity Reaction Status Date / Time Penicillins Allergy Unknown Verified 09/27/19 14:07 Review of Systems Review of Systems Narrative: GENERAL: Denies chills, fatigue, malaise, fever, sweats, travel HEENT: Denies sinus pain, ear pain, sore throat, difficulty swallowing, neck pain RESPIRATORY: Denies dyspnea, cough, wheezing, hemoptysis, sputum. CARDIOVASCULAR: Denies chest pain, palpitations, orthopnea, edema GASTROINTESTINAL: Denies nausea, vomiting, abdominal pain, diarrhea, constipation, melena. : Denies dysuria, frequency, incontinence, hematuria, urinary retention, flank pain. MUSCULOSKELETAL: Denies weakness, joint pain, or bony pain SKIN: No rash, no erythema, no pruritus NEUROLOGIC: Denies weakness, dizziness, headache, numbness, change in speech, confusion PSYCHIATRIC: No concerning psychosocial issues. 12 point review of systems is negative except for those stated above and HPI Patient History Medical History Cancer of left ear (Acute) Chronic atrial fibrillation with RVR (Acute) Diabetes (Chronic) E coli infection (Acute) Hernia of abdominal cavity (Acute) Hypothyroidism (Acute) Inguinal hernia bilateral, non-recurrent (Acute) Melanoma (Acute) Prostate cancer (Acute) Social History household members: spouse and children Smoking Status: Never smoker alcohol intake: never Smoking Status: Never smoker alcohol intake frequency: 0-2 drinks per day Substance Use Type: does not use Exam Initial Vital Signs Initial Vital Signs: Vital Signs Temperature 97.0 F L 10/18/19 13:40 Pulse Rate 69 10/18/19 13:40 Respiratory Rate 20 10/18/19 13:40 Blood Pressure 106/71 10/18/19 13:40 Pulse Oximetry 98 10/18/19 13:40 GENERAL: Alert well-appearing elderly male and in [no acute] distress. HEENT: Head atraumatic,EOMI, pupils reactive, face symmetric, [moist] mucous membrane CARDIOVASCULAR: Regular rate and rhythm without murmurs, rubs or gallops. RESPIRATORY: Breath sounds equal bilaterally, no wheezes rales or rhonchi. ABDOMEN: Soft, nontender. Normoactive bowel sounds all 4 quadrants. No guarding or rebound. EXTREMITIES: Normal range of motion, no clubbing or edema. Neurovascularly intact NEUROLOGICAL: Alert and oriented x4.Normal gait and speech. Cranial nerves II through XII grossly intact. SKIN: Warm, dry, no laceration, no petechiae, no rashes or lesions. Course Orders Ordered: ED Orders 10/18/19 13:20 Complete Blood Count AUTO DIFF Stat Prothrombin Time INR Stat 10/18/19 13:59 Basic Metabolic Panel Stat Vital Signs Vital signs: Vital Signs - 8 hr 10/18/19 13:40 10/18/19 15:31 Temperature 97.0 F L Pulse Rate 69 52 L Respiratory Rate 20 17 Blood Pressure 106/71 103/57 L Pulse Oximetry 98 98 MDM - Recheck/Abnormal Lab/Rx Lab Data Result diagrams: 10/18/19 13:20 10/18/19 13:59 Labs: Lab Results 10/18/19 10/18/19 10/18/19 Range/Units 13:20 13:20 13:59 WBC 6.8 (4.5-11.0) X10^3/uL RBC 4.29 L (4.5-5.9) X10^6/uL Hgb 12.5 L (13.5-17.5) g/dL Hct 38.1 L (41-53) % MCV 88.9 (80-100) fL MCH 29.0 (26-34) PG MCHC 32.7 (30-36) % RDW 14.6 (11.6-14.8) % Plt Count 204 (150-400) X10^3/uL Neut % (Auto) 67.4 (50-75) % Lymph % (Auto) 23.1 L (25-40) % [place] % (Auto) 6.9 (3-14) % Eos % (Auto) 1.9 L (2-4) % Baso % (Auto) 0.7 (0-2) % Neut # (Auto) 4600 (7036-7438) /uL Lymph # (Auto) 1600 (8087-3732) /uL [place] # (Auto) 500 (0-900) /uL Eos # (Auto) 100 (0-450) /uL Baso # (Auto) 0 (0-100) /uL PT 67.8 H (10.1-12.7) SECONDS INR 6.0 H* (0.9-1.3) Sodium 136 L (137-145) mmol/L Potassium 4.7 (3.4-5.1) mmol/L Chloride 98 (98-107) mmol/L Carbon Dioxide 33 H (22-32) mmol/L BUN 30 H (9-20) mg/dL Creatinine 1.90 H (0.66-1.25) mg/dL Estimated GFR 33.9 L (>60) mL/min BUN/Creatinine Ratio 15.8 (6-22) Glucose 380 H (80-110) mg/dL Calcium 9.0 (8.4-10.2) mg/dL [facility] Narrative Medical decision making narrative: The patient has elevated INR of 6 with no active bleeding at this time no indication for vitamin K or Kcentra. Recommend holding warfarin for the next 2 days and having it rechecked by PCP. Creatinine also noted to be slightly elevated I recommend he have this rechecked as well. Discharge Plan Departure Patient Disposition: Home Clinical Impression: Elevated INR Discharge Date/Time: 10/18/19 15:31 Instructions: Warfarin Activity Restrictions/Additional Instructions: *You have been diagnosed with elevated INR *What to do: At this time do not take warfarin/Coumadin tonight or tomorrow and have your PCP recheck on Wednesday. At this time no treatment is indicated. Your creatinine is also noted to be slightly elevated which is a measure of your kidney please have your PCP recheck this as well. *Continue to take medications as directed Stop Coumadin for the next 2 days *Follow up with your primary care provider in 2-3 days *Return to ER if you should have head injury, blood in stool, dizziness lightheadedness short of breath or any new, worsening or concerning symptoms Prescriptions: No Action tramadol 50 MG tablet 100 mg PO TID PRN (Reason: pain) Qty: 0 RF: 0 ferrous sulfate [Iron (ferrous sulfate)] 325 mg (65 mg iron) Tablet 325 mg PO DAILY RF: 0 midodrine 5 mg Tablet 5 mg PO 0600,1200,1800 Qty: 15 RF: 0 digoxin 125 mcg (0.125 mg) Tablet 0.125 mg PO DAILY Qty: 30 RF: 0 metoprolol tartrate 25 mg Tablet 12.5 mg PO BID Qty: 30 RF: 0 Novolin 70-30 FlexPen U-100 100 unit/mL (70-30) Insulin Pen 35 unit subcut BIDAC Qty: 0 RF: 0 levothyroxine 50 mcg Tablet 50 mcg PO MOTUWETHFRSA RF: 0 warfarin [Coumadin] 5 mg Tablet 5 mg PO BEDTIME RF: 0 Referrals: Lakisha aDngelo MD [Primary Care Provider] -
[2019-10-18 15:31] VITALS: BP 103/57; PULSE 52; RESP 17; O2SAT 98
== END 2019-10-18 15:31 | disposition home or self-care (01) ==
PROVIDERS: Emergency Provider Emergency Medicine; PCP Internal Medicine
DX: R79.1 Abnormal coagulation profile (principal); I48.91 Unspecified atrial fibrillation; Z79.01 Long term (current) use of anticoagulants
CPT/HCPCS: 36415; 80048; 85025; 85610; 99283; 99284

== ENCOUNTER → 2019-10-31 13:40 | Outpatient (CLI) | payer OTHER, SELFPAY ==
[2019-09-27 18:58] VITALS: BMI 35.0
[2019-10-31 15:33] LABS: Add Manual Diff / Slide Review NO; Basophils Absolute Auto 0 /uL (0-100); Basophils Percent Auto 0.6 % (0-2); Eosinophils Absolute Auto 100 /uL (0-450); Eosinophils Percent Auto 1.9 % (2-4); Hematocrit 36.6 % (41-53); Hemoglobin 12.1 g/dL (13.5-17.5); Lymphocytes Absolute Auto 1300 /uL (1100-4500); Lymphocytes Percent Auto 20.5 % (25-40); Mean Corpuscular HGB Conc 33.1 % (30-36); Mean Corpuscular Hemoglobin 29.4 PG (26-34); Mean Corpuscular Volume 88.7 fL (80-100); Monocytes Absolute Auto 500 /uL (0-900); Monocytes Percent Auto 7.2 % (3-14); Neutrophils Absolute Auto 4600 /uL (1500-7000); Neutrophils Percent Auto 69.8 % (50-75); Platelet Count 186 X10^3/uL (150-400); Red Blood Cell Count 4.13 X10^6/uL (4.5-5.9); Red Cell Distribution Width 14.9 % (11.6-14.8); White Blood Cell Count 6.6 X10^3/uL (4.5-11.0)
[2019-10-31 16:02] LABS: Alanine Aminotransferase 21 IU/L (<50); Albumin 3.2 g/dL (3.5-5.0); Albumin Globulin Ratio 1.2 (1.0-2.8); Alkaline Phosphatase 127 U/L (38-126); Aspartate Aminotransferase 36 IU/L (17-59); BUN Creatinine Ratio 16.1 (6-22); Bilirubin Total 0.8 mg/dL (0.2-1.3); Blood Urea Nitrogen 29 mg/dL (9-20); Calcium 8.2 mg/dL (8.4-10.2); Carbon Dioxide 28 mmol/L (22-32); Chloride 97 mmol/L (98-107); Estimated Glomerular Filt Rate 36.1 mL/min (>60); Globulin 2.7 g/dL (1.7-4.1); Glucose 392 mg/dL (80-110); HEMOLYSIS < 15 (0-50); Potassium 4.7 mmol/L (3.4-5.1); Sodium 133 mmol/L (137-145); Total Protein 5.9 g/dL (6.3-8.2)
[2019-10-31 16:06] LABS: NT-proBNP (BNP-Adult 18+) 3960 pg/mL (<450)
== END ==
PROVIDERS: PCP Internal Medicine; Referring Provider Internal Medicine; Visit Provider Internal Medicine
DX: I95.9 Hypotension, unspecified (principal); R79.89 Other specified abnormal findings of blood chemistry; R79.9 Abnormal finding of blood chemistry, unspecified
CPT/HCPCS: 36415; 80053; 83880; 85025

== ENCOUNTER 2019-11-19 16:33 | Emergency (ER) | payer OTHER, SELFPAY ==
[2019-09-27 18:58] VITALS: BMI 35.0
[2019-11-19 16:39] VITALS: BP 110/64; PULSE 87; RESP 22; O2SAT 96
--- NOTE | 2019-11-19 16:43 | DI.CT.S_ITS ---
PROCEDURE: CT HEAD/BRAIN WO CON INDICATIONS: fell struck back of head TECHNIQUE: Noncontrast 4.5 mm thick angled axial sections acquired from the foramen magnum to the vertex, with coronal and sagittal reformats. For radiation dose reduction, the following was used: automated exposure control, adjustment of mA and/or kV according to patient size. COMPARISON: [facility], CT, CT CERVICAL SPINE WO CON, 11/19/2019, 16:49. [facility], CT, CT HEAD/BRAIN WO CON, 09/30/2019, 17:19. FINDINGS: Image quality: Excellent. CSF spaces: Basal cisterns are patent. No extra-axial fluid collections. The ventricles are symmetric in size and shape. Brain: No intracranial bleeds or masses. A remote infarction is seen involving the right frontal lobe, with volume loss and encephalomalacia. There is cerebral volume loss for age, with resultant ventricular and sulcal prominence. There are periventricular and deep white matter chronic small vessel ischemic changes. There is intracranial internal carotid artery atherosclerosis. Skull and face: Calvarium and visualized facial bones appear intact, without suspicious lesions. Sinuses: Focal mucosal thickening is seen within the right maxillary sinus. Paranasal sinuses otherwise appear clear. No abnormal fluid is seen within the mastoid air cells. IMPRESSION: No acute intracranial hemorrhage is seen. No acute intracranial process is seen. Remote, stable right frontal lobe infarction. Note is made of age-appropriate brain parenchymal volume loss and chronic small vessel ischemic changes. Dictated by: Tony Mckinney M.D. on 11/19/2019 at 16:07 Approved by: Tony Mckinney M.D. on 11/19/2019 at 16:09
--- NOTE | 2019-11-19 16:43 | DI.CT.S_ITS ---
PROCEDURE: CT CERVICAL SPINE WO CON INDICATIONS: fell struck back of head TECHNIQUE: Noncontrast 3 mm thick sections acquired from the skull base to the T4 level. Sagittal and coronal reformats were then constructed. For radiation dose reduction, the following was used: automated exposure control, adjustment of mA and/or kV according to patient size. COMPARISON: [facility], CT, CT HEAD/BRAIN WO CON, 11/19/2019, 16:49. [facility], MR, MR CERVICAL SPINE WO CON, 11/01/2018, 14:24. FINDINGS: Image quality: Excellent. Bones: No fractures or dislocations. Visualized superior ribs are intact. Degenerative changes are seen, with moderate disc space narrowing at C3-C4 and C4-C5, with moderate to severe disc space narrowing at C5-C6 and C6-C7. Posteriorly directed endplate osteophytes are seen, which are most prominent at C5-C6 and C6-C7. Osteopenia can be seen. Soft tissues: Prevertebral soft tissues are normal in thickness. No paravertebral hematomas. No apical pneumothoraces. IMPRESSION: No acute fractures are seen. Relatively prominent lower cervical spine degenerative changes are seen. Dictated by: Tony Mckinney M.D. on 11/19/2019 at 16:09 Approved by: Tony Mckinney M.D. on 11/19/2019 at 16:11
--- NOTE | 2019-11-19 17:09 | PC.NURSE ---
at bedside for eval
--- NOTE | 2019-11-19 17:37 | ED_ITS ---
HPI - Fall <FRANK Cassidy - Last Filed: 11/19/19 20:20> General Chief Complaint: Trauma Stated Complaint: hit back of head Time Seen by Provider: 11/19/19 16:55 Source: patient and family Mode of arrival: Wheelchair Limitations: no limitations History of Present Illness HPI Narrative: This is a 84 year female, nonsmoker, who has history of AFib and takes Coumadin daily, insulin-dependent diabetes, hypothyroidism presents to ED with his son who is caregiver with chief complaint of head injury. Patient reports he was sitting on a desk chair then chair collapsed and hit posterior his head on a stair post from falling backwards. Patient denies losing consciousness, vomiting, headache, vision change, or seizure activities after the injury. Patient denies significant neck or pain in other areas. Son reports EMS came to home to assist patient into the car to come to ED. patient denies having chest pain, breathing difficulty, or palpitation before the injury. Patient reports mild discomfort in left posterior head where he hit his head. Related Data Home Medications Medication Instructions Recorded Confirmed tramadol 100 mg PO TID PRN #0 02/03/16 09/28/19 levothyroxine 50 mcg PO MOTUWETHFRSA 09/16/17 09/28/19 warfarin [Coumadin] 5 mg PO BEDTIME 07/20/18 09/28/19 ferrous sulfate [Iron (ferrous 325 mg PO DAILY 07/11/19 09/28/19 sulfate)] Previous Rx's Medication Instructions Recorded Novolin 70-30 FlexPen U-100 35 unit SUBCUT BIDAC #0 ml 10/01/19 digoxin 0.125 mg PO DAILY #30 tab 10/01/19 metoprolol tartrate 12.5 mg PO BID #30 tab 10/01/19 midodrine 5 mg PO 0600,1200,1800 #15 tab 10/01/19 Allergies Allergy/AdvReac Type Severity Reaction Status Date / Time Penicillins Allergy Unknown Verified 09/27/19 14:07 Review of Systems <FRANK Cassidy - Last Filed: 11/19/19 20:20> Review of Systems Narrative: General: Denies fever, chills, fatigue, malaise, sweats. HEENT: Denies sinus pain, ear pain, sore throat, difficulty swallowing, dizziness. Respiratory: Denies dyspnea, cough, wheezing, hemoptysis, sputum. Cardiovascular: Denies chest pain, palpitations, orthopnea, edema. Gastrointestinal: Denies nausea, vomiting, abdominal pain, diarrhea, constipation, melena. : Denies dysuria, frequency, incontinence, hematuria, urinary retention. Musculoskeletal: Denies weakness, joint pain or bony pain, (+) baseline chronic back pain. Skin: Denies rash, skin lesions, or other. Neurologic: See HPI Psychiatric: No concerning psychosocial issues. 12-point review of systems is negative except for those stated above. Patient History <FRANK Cassidy - Last Filed: 11/19/19 20:20> Medical History (Updated 11/19/19 @ 17:50 by Rubén Varner RN) Cancer of left ear (Acute) Chronic atrial fibrillation with RVR (Acute) Diabetes (Chronic) E coli infection (Acute) Hernia of abdominal cavity (Acute) Hypothyroidism (Acute) Inguinal hernia bilateral, non-recurrent (Acute) Melanoma (Acute) Prostate cancer (Acute) Right eye injury (Acute) Social History household members: spouse and children Smoking Status: Never smoker alcohol intake: never Smoking Status: Never smoker alcohol intake frequency: 0-2 drinks per day Substance Use Type: does not use Exam <FRANK Cassidy - Last Filed: 11/19/19 20:20> Narrative Exam Narrative: GEN: Alert, oriented x 3, well appearing and nourished, and in no acute distress. Head: Normal cephalic with mild swelling to left posterior scalp without open skin injury. No step-offs or crepitus. EYES: Pupils are equal, round, and reactive to light and accommodation in left pupil. Right pupil elongated shape without good reactive to light. Extraocular muscles are intact bilaterally. There is no subconjunctival hemorrhage, exudate and sclera non-icteric. ENT: Right auditory canals mostly obscured cerumen without drainage. Left auditory canal with and tympanic membranes clear. Decreased Hearing. Nose without bleeding, purulent discharge or deviation. Facial sinuses nontender to palpate. Mucous membrane moist, no mucosal lesion. Throat without erythema, tonsillar hypertrophy or exudate. Uvula in midline, airway patent. Neck: Trachea in midline. No JVD, non-tender without lymphadenopathy. No masses or thyroid megaly. Supple without step-offs, non-tender and no meningeal signs. CARDIAC: Irregular rhythm without murmurs, gallops, or rubs. No chest wall tenderness. No peripheral edema, cyanosis or pallor. Capillary refill is less than 2 seconds. RESPIRATORY: Lungs are clear to auscultate bilaterally. No cough, wheezes, rales, or rhonchi. No stridor, respiratory distress, increase work of breathing, or accessary muscle used. ABD: Abdomen soft, nontender and non-distended. No guarding or rebound tenderness to palpate. Bowel sounds are normal in all 4 quadrants. There is no palpable masses or organomegaly. EXT: Full painless ROM of all extremities with no loss of sensation, strength, effusion or edema. SKIN: Old small dried scab x 2 on left leal. Warm, dry, normal color for patient. No erythema, lesions or rash over visible areas. BACK: Nontender without deformity or crepitance. No flank tenderness. NEUROLOGICAL: Alert and oriented to place, time and person. Sensation and motor function intact bilaterally. No facial droops, dysphasia. PSYCHIATRIC: Good judgement and reason, without hallucinations, abnormal affect or abnormal behaviors during the examination. Initial Vital Signs Initial Vital Signs: Vital Signs Pulse Rate 87 11/19/19 16:39 Respiratory Rate 22 11/19/19 16:39 Blood Pressure 110/64 11/19/19 16:39 Pulse Oximetry 96 11/19/19 16:39 <Cristel Howe DO - Last Filed: 11/20/19 08:26> Initial Vital Signs Initial Vital Signs: Vital Signs Pulse Rate 87 11/19/19 16:39 Respiratory Rate 22 11/19/19 16:39 Blood Pressure 110/64 11/19/19 16:39 Pulse Oximetry 96 11/19/19 16:39 Scores <FRANK Cassidy - Last Filed: 11/19/19 20:20> GCS Ankur coma scale eye opening: Spontaneous Rudyard coma scale verbal response: Orientated Rudyard coma scale motor response: Obey commands Rudyard coma scale total score: 15 Nexus Score for C-Spine Focal Neurologic deficit present: No Midline spinal tenderness present: No Altered level of conciousness present: No Intoxication present: No Distracting Injury Present: Yes Nexus Criteria for C-spine: 1 Course <FRANK Cassidy - Last Filed: 11/19/19 20:20> Orders Ordered: ED Orders 11/19/19 16:43 CT cervical spine wo con Stat CT head/brain wo con Stat Vital Signs Vital signs: Vital Signs - 8 hr 11/19/19 16:39 Pulse Rate 87 Respiratory Rate 22 Blood Pressure 110/64 Pulse Oximetry 96 <Cristel Howe DO - Last Filed: 11/20/19 08:26> Orders Ordered: ED Orders 11/19/19 16:43 CT cervical spine wo con Stat CT head/brain wo con Stat Vital Signs Vital signs: Vital Signs - 8 hr 11/19/19 16:39 Pulse Rate 87 Respiratory Rate 22 Blood Pressure 110/64 Pulse Oximetry 96 MDM - Fall <RFANK Cassidy - Last Filed: 11/19/19 20:20> Differential Diagnosis Differential diagnosis: Likely concussion without loss of consciousness and other (Closed head injury, intracranial hemorrhage, C-spine fracture, neck strain) Medical Records Attestation: I reviewed the patient's medical records. Imaging Data CT scan - head: Radiologist's Impression: [place] [address] CT Scan Report Signed Patient: Marty Heard FMR#: [id number] : 6Acct:[id number] Age/Sex: 84 / MDate of Service: 11/19/19 Loc: ED Accession Number: [id number] Procedure: CT head/brain wo con Ordering Provider: Carlos HurtadoP PROCEDURE: CT HEAD/BRAIN WO CON INDICATIONS: fell struck back of head TECHNIQUE: Noncontrast 4.5 mm thick angled axial sections acquired from the foramen magnum to the vertex, with coronal and sagittal reformats. For radiation dose reduction, the following was used: automated exposure control, adjustment of mA and/or kV according to patient size. COMPARISON: [facility], CT, CT CERVICAL SPINE WO CON, 11/19/2019, 16:49. [facility], CT, CT HEAD/BRAIN WO CON, 09/30/2019, 17:19. FINDINGS: Image quality: Excellent. CSF spaces: Basal cisterns are patent. No extra-axial fluid collections. The ventricles are symmetric in size and shape. Brain: No intracranial bleeds or masses. A remote infarction is seen involving the right frontal lobe, with volume loss and encephalomalacia. There is cerebral volume loss for age, with resultant ventricular and sulcal prominence. There are periventri cular and deep white matter chronic small vessel ischemic changes. There is intracranial internal carotid artery atherosclerosis. Skull and face: Calvarium and visualized facial bones appear intact, without suspicious lesions. Sinuses: Focal mucosal thickening is seen within the right maxillary sinus. Paranasal sinuses otherwise appear clear. No abnormal fluid is seen within the mastoid air cells. IMPRESSION: No acute intracranial hemorrhage is seen. No acute intracranial process is seen. Remote, stable right frontal lobe infarction. Note is made of age-appropriate brain parenchymal volume loss and chronic small vessel ischemic changes. Dictated by: Tony Mckinney M.D. on 11/19/2019 at 16:07 Approved by: Tony Mckinney M.D. on 11/19/2019 at 16:09 CT- C spine: Radiologist's Impression: [place] [address] CT Scan Report Signed Patient: Marty Heard FMR#: [id number] : 6Acct:[id number] Age/Sex: 84 / MDate of Service: 11/19/19 Loc: ED Accession Number: [id number] Procedure: CT cervical spine wo con Ordering Provider: Carlos Hurtado PROCEDURE: CT CERVICAL SPINE WO CON INDICATIONS: fell struck back of head TECHNIQUE: Noncontrast 3 mm thick sections acquired from the skull base to the T4 level. Sagittal and coronal reformats were then constructed. For radiation dose reduction, the following was used: automated exposure control, adjustment of mA and/or kV according to patient size. COMPARISON: [facility], CT, CT HEAD/BRAIN WO CON, 11/19/2019, 16:49. [facility], MR, MR CERVICAL SPINE WO CON, 11/01/2018, 14:24. FINDINGS: Image quality: Excellent. Bones: No fractures or dislocations. Visualized superior ribs are intact. Degenerative changes are seen, with moderate disc space narrowing at C3-C4 and C4-C5, with moderate to severe disc space narrowing at C5-C6 and C6-C7. Posteriorly directed endplate osteophytes are seen, which are most prominent at C5-C6 and C6-C7. Osteopenia can be seen. Soft tissues: Prevertebral soft tissues are normal in thickness. No paravertebral hematomas. No apical pneumothoraces. IMPRESSION: No acute fractures are seen. Relatively prominent lower cervical spine degenerative changes are seen. Dictated by: Tony Mckinney M.D. on 11/19/2019 at 16:09 Approved by: Tony Mckinney M.D. on 11/19/2019 at 16:11 [facility] Narrative Medical decision making narrative: This is a 84-year-old gentleman who has history of AFib and currently takes anticoagulant Coumadin presents to ED after he had a posterior closed head injury from a malfunctioned/collapsed desk chair. Patient has no focal neurological deficit and has been acting of appropriate without losing consciousness. Patient did not have significant neck pain during exam. Given patient's advanced age, currently on anticoagulant with head injury modified trauma has been initiated. CT test of head not show acute findings remote stable right frontal lobe infarction and chronic small-vessel ischemic changes and volume loss. CT of C- spine without acute findings but degenerate changes with moderate disc spaces in C4 through C7. Patient declined Tylenol when offered for the mild discomfort in posterior all head. Findings were discussed with patient and son who is caregiver. Patient was able to stand and take steps with a walker and assistance as his baseline. Return precautions were discussed with patient and advised to follow up primary care physician as scheduled on next week which they both verbalized understanding and agreement with treatment. Discharge Plan Departure Patient Disposition: Home Clinical Impression: Fall against object, Atrial fibrillation CHI (closed head injury) Qualifiers: Encounter type: initial encounter Qualified Code(s): S09.90XA - Unspecified injury of head, initial encounter Discharge Date/Time: 11/19/19 17:49 Instructions: DI for Closed Head Injury Activity Restrictions/Additional Instructions: You have been diagnosed with [closed head injury from a fall and hit head against stair post. CT tests on head and cervical spine were negative for acute findings.]. What to do: *Take your medications as directed. You can take Tylenol as needed for discomfort. *Follow up with your primary care provider in 2-3 days as scheduled. Let them know you were seen in the ED and that we asked you to be seen in follow up. *Return to ED if you have any new, worsening, or concerning symptoms, such as [increasing headache, vomiting, vision change, weakness to extremities, unusual behaviors, seizure, or any acute concerns]. Prescriptions: No Action tramadol 50 MG tablet 100 mg PO TID PRN (Reason: pain) Qty: 0 RF: 0 ferrous sulfate [Iron (ferrous sulfate)] 325 mg (65 mg iron) Tablet 325 mg PO DAILY RF: 0 midodrine 5 mg Tablet 5 mg PO 0600,1200,1800 Qty: 15 RF: 0 digoxin 125 mcg (0.125 mg) Tablet 0.125 mg PO DAILY Qty: 30 RF: 0 metoprolol tartrate 25 mg Tablet 12.5 mg PO BID Qty: 30 RF: 0 Novolin 70-30 FlexPen U-100 100 unit/mL (70-30) Insulin Pen 35 unit subcut BIDAC Qty: 0 RF: 0 levothyroxine 50 mcg Tablet 50 mcg PO MOTUWETHFRSA RF: 0 warfarin [Coumadin] 5 mg Tablet 5 mg PO BEDTIME RF: 0 Referrals: Lakisha Dangelo MD [Primary Care Provider] - <Cristel Howe DO - Last Filed: 11/20/19 08:26> Cosign ED Attending Coselidaature Attestation: I was immediately available in the depar tment for consultation. Documentation has been reviewed. I agree with assessment and plan.
--- NOTE | 2019-11-19 17:43 | PC.NURSE ---
pt ambulated with walker. pt able to display steady walker gait pt states is at baseline for ambulation denies weakness/pain in legs. practioner made aware of ambulatory status
== END 2019-11-19 17:49 | disposition home or self-care (01) ==
PROVIDERS: Emergency Provider Nurse Practitioner Family; PCP Internal Medicine
DX: S09.90XA Unspecified injury of head, initial encounter (principal); I48.91 Unspecified atrial fibrillation; Z79.01 Long term (current) use of anticoagulants; W18.09XA Striking against other object with subsequent fall, initial encounter
CPT/HCPCS: 70450; 72125; 99284

== ENCOUNTER → 2019-11-21 19:07 | Outpatient (ROUT) | payer OTHER, SELFPAY ==
[2019-09-27 18:58] VITALS: BMI 35.0
[2019-11-21 19:59] LABS: Alanine Aminotransferase 19 IU/L (<50); Albumin 3.3 g/dL (3.5-5.0); Albumin Globulin Ratio 1.2 (1.0-2.8); Alkaline Phosphatase 122 U/L (38-126); Aspartate Aminotransferase 34 IU/L (17-59); BUN Creatinine Ratio 16.3 (6-22); Bilirubin Total 0.9 mg/dL (0.2-1.3); Blood Urea Nitrogen 31 mg/dL (9-20); Calcium 8.6 mg/dL (8.4-10.2); Carbon Dioxide 31 mmol/L (22-32); Chloride 98 mmol/L (98-107); Estimated Glomerular Filt Rate 33.9 mL/min (>60); Globulin 2.8 g/dL (1.7-4.1); Glucose 458 mg/dL (80-110); HEMOLYSIS < 15 (0-50); Sodium 133 mmol/L (137-145); Total Protein 6.1 g/dL (6.3-8.2)
[2019-11-21 20:00] LABS: Potassium 5.4 mmol/L (3.4-5.1)
[2019-11-21 20:04] LABS: NT-proBNP (BNP-Adult 18+) 3330 pg/mL (<450)
== END ==
PROVIDERS: PCP Internal Medicine; Visit Provider Internal Medicine
DX: E11.21 Type 2 diabetes mellitus with diabetic nephropathy (principal); E87.1 Hypo-osmolality and hyponatremia; R79.89 Other specified abnormal findings of blood chemistry
CPT/HCPCS: 80053; 83880

== ENCOUNTER → 2019-12-05 18:47 | Outpatient (ROUT) | payer OTHER, SELFPAY ==
[2019-09-27 18:58] VITALS: BMI 35.0
[2019-12-05 19:11] LABS: BUN Creatinine Ratio 20.5 (6-22); Blood Urea Nitrogen 35 mg/dL (9-20); Calcium 8.7 mg/dL (8.4-10.2); Carbon Dioxide 29 mmol/L (22-32); Chloride 99 mmol/L (98-107); Estimated Glomerular Filt Rate 38.3 mL/min (>60); Glucose 453 mg/dL (80-110); HEMOLYSIS < 15 (0-50); Potassium 4.9 mmol/L (3.4-5.1); Sodium 135 mmol/L (137-145)
== END ==
PROVIDERS: PCP Internal Medicine; Visit Provider Internal Medicine
DX: E87.5 Hyperkalemia (principal)
CPT/HCPCS: 80048

== ENCOUNTER 2020-01-05 18:51 | Inpatient (IN) | payer OTHER, SELFPAY ==
[2019-09-27 18:58] VITALS: BMI 35.0
[2020-01-05 19:09] VITALS: BP 154/65; PULSE 90; RESP 18; TEMP 36.9; O2SAT 100; BMI 34.9
--- NOTE | 2020-01-05 19:14 | ED.WEAKNESS ---
HPI - Weakness General Chief complaint: Weakness Stated complaint: WEAKNESS Time Seen by Provider: 01/05/20 19:04 Source: patient History of Present Illness HPI Narrative: Patient complains of generalized weakness. No unilateral focal weakness numbness tingling weakness. No palpitations chest pains. No nausea vomiting diarrhea. No fever but has chills. Has had a runny nose as well. No coughing. No urinary complaints. No diarrhea. No back pain chest pain abdominal pain. No headache. No dyspnea. No sick contacts. With bed last night no complaints. Awoke this morning feeling generalized weakness. No abnormal bleeding. MD Complaint: generalized weakness Related Data Home Medications Medication Instructions Recorded Confirmed tramadol 100 mg PO TID PRN #0 02/03/16 09/28/19 levothyroxine 50 mcg PO MOTUWETHFRSA 09/16/17 09/28/19 warfarin [Coumadin] 5 mg PO BEDTIME 07/20/18 09/28/19 ferrous sulfate [Iron (ferrous 325 mg PO DAILY 07/11/19 09/28/19 sulfate)] warfarin 5 mg PO QPM 01/05/20 01/05/20 Previous Rx's Medication Instructions Recorded Novolin 70-30 FlexPen U-100 35 unit SUBCUT BIDAC #0 ml 10/01/19 digoxin 0.125 mg PO DAILY #30 tab 10/01/19 metoprolol tartrate 12.5 mg PO BID #30 tab 10/01/19 midodrine 5 mg PO 0600,1200,1800 #15 tab 10/01/19 Allergies Allergy/AdvReac Type Severity Reaction Status Date / Time Penicillins Allergy Unknown Verified 01/05/20 19:19 Review of Systems Review of Systems Narrative: GENERAL: Complains chills, fatigue, malaise, denies fever, sweats. HEENT: Denies sinus pain, ear pain, sore throat, difficulty swallowing RESPIRATORY: Denies dyspnea, cough CARDIOVASCULAR: Denies chest pain, palpitations, edema, GASTROINTESTINAL: Denies nausea, vomiting, abdominal pain, diarrhea, constipation, melena. : Denies dysuria, frequency, hematuria MUSCULOSKELETAL: denies muscle or bony pain SKIN: Denies rash, skin lesions NEUROLOGIC: Denies focal weakness, headache, numbness, change in speech, confusion PSYCHIATRIC: No SI or HI or hallucinations ROS Unobtainable: All systems reviewed & are unremarkable except as noted in HPI and below Patient History Medical History Cancer of left ear (Acute) Chronic atrial fibrillation with RVR (Acute) Diabetes (Chronic) E coli infection (Acute) Hernia of abdominal cavity (Acute) Hypothyroidism (Acute) Inguinal hernia bilateral, non-recurrent (Acute) Melanoma (Acute) Prostate cancer (Acute) Right eye injury (Acute) Surgical History History of throat surgery (Acute) History of transurethral resection of prostate (Acute) Status post bilateral hernia repair (Acute) Social History household members: spouse and children Smoking Status: Never smoker alcohol intake: never Smoking Status: Never smoker alcohol intake frequency: 0-2 drinks per day Substance Use Type: does not use Exam Narrative Exam Narrative: GENERAL: patient appears stated age. Well-nourished, well-developed patient, in no distress, not toxic not dyspneic HEAD: Normocephalic. EYES: Pupils equal round and reactive. No scleral icterus. No injection no discharge ENT: Mucous membranes moist. No drooling no tongue elevation no trismus no malocclusion NECK: Trachea midline. Non tender CARDIOVASCULAR: Irregular irregular rate and rhythm without murmurs, gallops, or rubs. RESPIRATORY: Clear to auscultation. Breath sounds equal bilaterally. No wheezes, rales, or rhonchi. GASTROINTESTINAL: Abdomen soft, non-tender, nondistended. EXTREMITIES: No gross deformities. BACK: Nontender without deformity or crepitance. No flank tenderness. NEURO: AOx4. SKIN: Warm and dry PSYCH: Not anxious, is cooperative Initial Vital Signs Initial Vital Signs: Vital Signs Temperature 98.4 F 01/05/20 19:09 Pulse Rate 90 01/05/20 19:09 Respiratory Rate 18 01/05/20 19:09 Blood Pressure 154/65 H 01/05/20 19:09 Pulse Oximetry 100 01/05/20 19:09 Course Course Course Narrative: Patient was on Keflex, hospitalistSilas, reviewed medical records and patient was placed on Keflex without any side effects or reactions December 20, 2019 for left leg cellulitis Decision to Admit Date: 01/05/20 Decision to Admit time: 20:12 Orders Ordered: ED Orders 01/05/20 19:10 Complete Blood Count AUTO DIFF Stat Comprehensive Metabolic Panel Stat Digoxin Stat Lactate (Lactic Acid) Stat Magnesium Routine Partial Thromboplastin Time Stat Procalcitonin Stat Prothrombin Time INR Stat Troponin I Stat 01/05/20 19:17 XR chest 1V Stat 01/05/20 19:25 COVID19 -ED/INPAT/OR/L&D Stat Respiratory Panel (Film Array) Stat 01/05/20 20:34 Consult to Dietitian, Adult Routine 01/05/20 20:35 Consult to Discharge Planning Routine 01/05/20 20:37 Blood Culture Stat 01/05/20 21:53 Urinalysis Screen (Dip Only) Stat 01/06/20 05:00 Basic Metabolic Panel Routine Complete Blood Count AUTO DIFF Routine Prothrombin Time INR Routine Acetaminophen (Tylenol) 650 mg PO Q6HR PRN PRN Reason: Fever/Mild Pain (1-3) Al Hydrox/Mg Hydrox/Simethicone (Maalox Plus) 30 ml PO Q6HR PRN PRN Reason: Dyspepsia Bisacodyl (Dulcolax) 10 mg PO DAILY PRN PRN Reason: Constipation Calcium Carbonate (Tums) 1,000 mg PO Q4HR PRN PRN Reason: Dyspepsia Digoxin (Lanoxin) 0.125 mg PO DAILY GARRETT Docusate Sodium (Colace) 100 mg PO BID PRN PRN Reason: Constipation Enoxaparin Sodium (Lovenox) 40 mg SUBCUT DAILY [facility] Sodium Chloride (Normal Saline 0.9%) 1,000 mls @ 75 mls/hr IV CONT [facility] Last Admin: 01/05/20 22:49 Dose: 75 mls/hr Documented by: GPEREZ Ceftriaxone Sodium/Dextrose (Rocephin) 2 gm in 50 mls @ 100 mls/hr IV Q24H [facility] Insulin Glargine (Lantus Solostar (Pen)) 22 unit SUBCUT BEDTIME GARRETT Insulin Glargine (Lantus Solostar (Pen)) 25 unit SUBCUT QACBREAK [facility] Levothyroxine Sodium (Synthroid) 50 mcg PO MOTUWETHFRSA [facility] Metoprolol Tartrate (Lopressor) 12.5 mg PO BID [facility] Midodrine (Midodrine) 5 mg PO 0600,1200,1800 [facility] Naloxone HCl (Narcan) 0.2 mg IV Q2MIN PRN PRN Reason: Opiate Reversal Ondansetron HCl (Zofran) 4 mg IV Q8HR PRN PRN Reason: Nausea And Vomiting Tramadol HCl (Ultram) 100 mg PO TID PRN PRN Reason: Pain, Moderate (4-6) Warfarin Sodium (Coumadin) 5 mg PO 1700 GARRETT Discontinued Medications Levofloxacin (Levaquin) 750 mg in 150 mls @ 100 mls/hr IV NOW ONE Stop: 01/05/20 21:32 Last Admin: 01/05/20 20:40 Dose: Not Given Documented by: PEREZ Ceftriaxone Sodium/Dextrose (Rocephin) 1 gm in 50 mls @ 100 mls/hr IV NOW ONE Stop: 01/05/20 20:40 Last Infusion: 01/05/20 21:02 Dose: 0 mls/hr Documented by: Admin: 01/05/20 20:31 Dose: 100 mls/hr Documented by: MARYAN Azithromycin 500 mg/ Dextrose 250 mls @ 250 mls/hr IV NOW ONE Stop: 01/05/20 20:12 Last Infusion: 01/05/20 22:50 Dose: 0 mls/hr Documented by: Infusion: 01/05/20 22:04 Dose: 250 mls/hr Documented by: Admin: 01/05/20 21:06 Dose: 250 mls/hr Documented by: PEREZ Ceftriaxone Sodium/Dextrose (Rocephin) 1 gm in 50 mls @ 100 mls/hr IV NOW ONE Stop: 01/05/20 21:07 Last Admin: 01/05/20 22:50 Dose: 100 mls/hr Documented by: SUZAN Warfarin Sodium (Coumadin) 5 mg PO NOW ONE Stop: 01/05/20 22:52 Reevaluation(s) Reevaluation #1: Reviewed results with patient. Patient states has rash with penicillin. However patient was on Keflex earlier this month without any difficulties Time: 20:13 Consultations Consultation #1: Spoke with hospice, Silas, will admit. Start ceftriaxone and Zithromax Time: 20:13 Vital Signs Vital signs: Vital Signs - 8 hr 01/05/20 19:09 Temperature 98.4 F Pulse Rate 90 Respiratory Rate 18 Blood Pressure 154/65 H Pulse Oximetry 100 MDM - Weakness Differential Diagnosis Differential diagnosis: Likely acute myocardial infarction, anemia, hypoglycemia, hypothyroidism, sepsis, dehydration and other (Pneumonia) Medical Records Attestation: I reviewed the patient's medical records. Lab Data Attestation: I reviewed the patient's lab results. Result diagrams: 01/05/20 19:10 01/05/20 19:10 Labs: Lab Results 01/05/20 01/05/20 01/05/20 Range/Units 19:10 19:10 19:10 WBC 6.8 (4.5-11.0) X10^3/uL RBC 3.98 L (4.5-5.9) X10^6/uL Hgb 12.0 L (13.5-17.5) g/dL Hct 36.3 L (41-53) % MCV 91.2 (80-100) fL MCH 30.1 (26-34) PG MCHC 33.0 (30-36) % RDW 14.0 (11.6-14.8) % Plt Count 210 (150-400) X10^3/uL Neut % (Auto) 70.0 (50-75) % Lymph % (Auto) 21.4 L (25-40) % [place] % (Auto) 6.4 (3-14) % Eos % (Auto) 1.3 L (2-4) % Baso % (Auto) 0.9 (0-2) % Neut # (Auto) 4700 (6102-0347) /uL Lymph # (Auto) 1400 (3603-5351) /uL [place] # (Auto) 400 (0-900) /uL Eos # (Auto) 100 (0-450) /uL Baso # (Auto) 100 (0-100) /uL PT 18.7 H (10.1-12.7) SECONDS INR 1.6 H (0.9-1.3) APTT (26.4-36.2) SECONDS Sodium (137-145) mmol/L Potassium (3.4-5.1) mmol/L Chloride (98-107) mmol/L Carbon Dioxide (22-32) mmol/L BUN (9-20) mg/dL Creatinine (0.66-1.25) mg/dL Estimated GFR (>60) mL/min BUN/Creatinine Ratio (6-22) Glucose (80-110) mg/dL Lactate (0.7-2.1) mmol/L Calcium (8.4-10.2) mg/dL Magnesium (1.6-2.3) mg/dL Total Bilirubin (0.2-1.3) mg/dL AST (17-59) IU/L ALT (<50) IU/L Alkaline Phosphatase (38-126) U/L Troponin I < 0.012 (0.01-0.034) ng/mL Total Protein (6.3-8.2) g/dL Albumin (3.5-5.0) g/dL Globulin (1.7-4.1) g/dL Albumin/Globulin Ratio (1.0-2.8) Procalcitonin (<0.5) ng/mL Digoxin (0.8-2.0) ng/mL Chlamy pneumoniae PCR (Not Detect) Adenovirus (PCR) (Not Detect) B.parapertussis DNA PCR (Not Detect) Coronavirus OC43 (PCR) (Not Detect) Coronavirus HKU1 (PCR) (Not Detect) Coronavirus 229E (PCR) (Not Detect) COVID-19 PCR (Negative) Coronavirus NL63 (PCR) (Not Detect) Human Metapneumovir PCR (Not Detect) Influenza Type A (PCR) (Not Detect) Influenza Type B (PCR) (Not Detect) M. pneumoniae (PCR) (Not Detect) Parainfluenza 1 (PCR) (Not Detect) Parainfluenza 2 (PCR) (Not Detect) Parainfluenza 3 (PCR) (Not Detect) Parainfluenza 4 (PCR) (Not Detect) RSV (PCR) (Not Detect) Entero/Rhino (PCR) (Not Detect) 01/05/20 01/05/20 01/05/20 Range/Units 19:10 19:10 19:10 WBC (4.5-11.0) X10^3/uL RBC (4.5-5.9) X10^6/uL Hgb (13.5-17.5) g/dL Hct (41-53) % MCV (80-100) fL MCH (26-34) PG MCHC (30-36) % RDW (11.6-14.8) % Plt Count (150-400) X10^3/uL Neut % (Auto) (50-75) % Lymph % (Auto) (25-40) % [place] % (Auto) (3-14) % Eos % (Auto) (2-4) % Baso % (Auto) (0-2) % Neut # (Auto) (6850-5901) /uL Lymph # (Auto) (5391-7590) /uL [place] # (Auto) (0-900) /uL Eos # (Auto) (0-450) /uL Baso # (Auto) (0-100) /uL PT (10.1-12.7) SECONDS INR (0.9-1.3) APTT (26.4-36.2) SECONDS Sodium 139 (137-145) mmol/L Potassium 5.0 (3.4-5.1) mmol/L Chloride 102 (98-107) mmol/L Carbon Dioxide 31 (22-32) mmol/L BUN 35 H (9-20) mg/dL Creatinine 1.83 H (0.66-1.25) mg/dL Estimated GFR 35.4 L (>60) mL/min BUN/Creatinine Ratio 19.1 (6-22) Glucose 302 H (80-110) mg/dL Lactate 3.5 H (0.7-2.1) mmol/L Calcium 8.9 (8.4-10.2) mg/dL Magnesium (1.6-2.3) mg/dL Total Bilirubin 1.0 (0.2-1.3) mg/dL AST 57 (17-59) IU/L ALT 44 (<50) IU/L Alkaline Phosphatase 128 H (38-126) U/L Troponin I (0.01-0.034) ng/mL Total Protein 7.4 (6.3-8.2) g/dL Albumin 4.0 (3.5-5.0) g/dL Globulin 3.4 (1.7-4.1) g/dL Albumin/Globulin Ratio 1.2 (1.0-2.8) Procalcitonin 0.05 (<0.5) ng/mL Digoxin (0.8-2.0) ng/mL Chlamy pneumoniae PCR (Not Detect) Adenovirus (PCR) (Not Detect) B.parapertussis DNA PCR (Not Detect) Coronavirus OC43 (PCR) (Not Detect) Coronavirus HKU1 (PCR) (Not Detect) Coronavirus 229E (PCR) (Not Detect) COVID-19 PCR (Negative) Coronavirus NL63 (PCR) (Not Detect) Human Metapneumovir PCR (Not Detect) Influenza Type A (PCR) (Not Detect) Influenza Type B (PCR) (Not Detect) M. pneumoniae (PCR) (Not Detect) Parainfluenza 1 (PCR) (Not Detect) Parainfluenza 2 (PCR) (Not Detect) Parainfluenza 3 (PCR) (Not Detect) Parainfluenza 4 (PCR) (Not Detect) RSV (PCR) (Not Detect) Entero/Rhino (PCR) (Not Detect) 01/05/20 01/05/20 01/05/20 Range/Units 19:10 19:10 19:10 WBC (4.5-11.0) X10^3/uL RBC (4.5-5.9) X10^6/uL Hgb (13.5-17.5) g/dL Hct (41-53) % MCV (80-100) fL MCH (26-34) PG MCHC (30-36) % RDW (11.6-14.8) % Plt Count (150-400) X10^3/uL Neut % (Auto) (50-75) % Lymph % (Auto) (25-40) % [place] % (Auto) (3-14) % Eos % (Auto) (2-4) % Baso % (Auto) (0-2) % Neut # (Auto) (4516-9031) /uL Lymph # (Auto) (9561-5665) /uL [place] # (Auto) (0-900) /uL Eos # (Auto) (0-450) /uL Baso # (Auto) (0-100) /uL PT (10.1-12.7) SECONDS INR (0.9-1.3) APTT 38 H D (26.4-36.2) SECONDS Sodium (137-145) mmol/L Potassium (3.4-5.1) mmol/L Chloride (98-107) mmol/L Carbon Dioxide (22-32) mmol/L BUN (9-20) mg/dL Creatinine (0.66-1.25) mg/dL Estimated GFR (>60) mL/min BUN/Creatinine Ratio (6-22) Glucose (80-110) mg/dL Lactate (0.7-2.1) mmol/L Calcium (8.4-10.2) mg/dL Magnesium 2.1 (1.6-2.3) mg/dL Total Bilirubin (0.2-1.3) mg/dL AST (17-59) IU/L ALT (<50) IU/L Alkaline Phosphatase (38-126) U/L Troponin I (0.01-0.034) ng/mL Total Protein (6.3-8.2) g/dL Albumin (3.5-5.0) g/dL Globulin (1.7-4.1) g/dL Albumin/Globulin Ratio (1.0-2.8) Procalcitonin (<0.5) ng/mL Digoxin 0.5 L (0.8-2.0) ng/mL Chlamy pneumoniae PCR (Not Detect) Adenovirus (PCR) (Not Detect) B.parapertussis DNA PCR (Not Detect) Coronavirus OC43 (PCR) (Not Detect) Coronavirus HKU1 (PCR) (Not Detect) Coronavirus 229E (PCR) (Not Detect) COVID-19 PCR (Negative) Coronavirus NL63 (PCR) (Not Detect) Human Metapneumovir PCR (Not Detect) Influenza Type A (PCR) (Not Detect) Influenza Type B (PCR) (Not Detect) M. pneumoniae (PCR) (Not Detect) Parainfluenza 1 (PCR) (Not Detect) Parainfluenza 2 (PCR) (Not Detect) Parainfluenza 3 (PCR) (Not Detect) Parainfluenza 4 (PCR) (Not Detect) RSV (PCR) (Not Detect) Entero/Rhino (PCR) (Not Detect) 01/05/20 01/05/20 Range/Units 19:25 19:25 WBC (4.5-11.0) X10^3/uL RBC (4.5-5.9) X10^6/uL Hgb (13.5-17.5) g/dL Hct (41-53) % MCV (80-100) fL MCH (26-34) PG MCHC (30-36) % RDW (11.6-14.8) % Plt Count (150-400) X10^3/uL Neut % (Auto) (50-75) % Lymph % (Auto) (25-40) % [place] % (Auto) (3-14) % Eos % (Auto) (2-4) % Baso % (Auto) (0-2) % Neut # (Auto) (7254-8025) /uL Lymph # (Auto) (7247-9056) /uL [place] # (Auto) (0-900) /uL Eos # (Auto) (0-450) /uL Baso # (Auto) (0-100) /uL PT (10.1-12.7) SECONDS INR (0.9-1.3) APTT (26.4-36.2) SECONDS Sodium (137-145) mmol/L Potassium (3.4-5.1) mmol/L Chloride (98-107) mmol/L Carbon Dioxide (22-32) mmol/L BUN (9-20) mg/dL Creatinine (0.66-1.25) mg/dL Estimated GFR (>60) mL/min BUN/Creatinine Ratio (6-22) Glucose (80-110) mg/dL Lactate (0.7-2.1) mmol/L Calcium (8.4-10.2) mg/dL Magnesium (1.6-2.3) mg/dL Total Bilirubin (0.2-1.3) mg/dL AST (17-59) IU/L ALT (<50) IU/L Alkaline Phosphatase (38-126) U/L Troponin I (0.01-0.034) ng/mL Total Protein (6.3-8.2) g/dL Albumin (3.5-5.0) g/dL Globulin (1.7-4.1) g/dL Albumin/Globulin Ratio (1.0-2.8) Procalcitonin (<0.5) ng/mL Digoxin (0.8-2.0) ng/mL Chlamy pneumoniae PCR Not detected (Not Detect) Adenovirus (PCR) Not detected (Not Detect) B.parapertussis DNA PCR Not detected (Not Detect) Coronavirus OC43 (PCR) Not detected (Not Detect) Coronavirus HKU1 (PCR) Not detected (Not Detect) Coronavirus 229E (PCR) Not detected (Not Detect) COVID-19 PCR Negative (Negative) Coronavirus NL63 (PCR) Not detected (Not Detect) Human Metapneumovir PCR Not detected (Not Detect) Influenza Type A (PCR) Not detected (Not Detect) Influenza Type B (PCR) Not detected (Not Detect) M. pneumoniae (PCR) Not detected (Not Detect) Parainfluenza 1 (PCR) Not detected (Not Detect) Parainfluenza 2 (PCR) Not detected (Not Detect) Parainfluenza 3 (PCR) Not detected (Not Detect) Parainfluenza 4 (PCR) Not detected (Not Detect) RSV (PCR) Not detected (Not Detect) Entero/Rhino (PCR) Not detected (Not Detect) Imaging Data Chest x-ray: Radiologist Impression: [address] [address] XRay Report Signed Patient: Marty Heard FMR#: [id number] : 6Acct:[id number] Age/Sex: 84 / MDate of Service: 01/05/20 Loc: ED Accession Number: [id number] Procedure: XR chest 1V Ordering Provider: Anson Pedraza MD PROCEDURE: XR CHEST 1V INDICATIONS: Cough TECHNIQUE: One view of the chest was acquired. COMPARISON: [facility], , XR CHEST 1V, 09/09/2019, 15:59. [facility], , XR CHEST 1V, 08/05/2019, 12:04. FINDINGS: Surgical changes and devices: None. Lungs and pleura: Lungs are mildly abnormal and difficult to interpret due to body habitus and reduced inspiration. There likely is a slight degree of alveolar infiltration at the retrocardiac left lower lobe. No pleural effusions or pneumothorax. Mediastinum: Mediastinal contours appear normal. Heart size is normal. Bones and chest wall: No suspicious bony lesions. Overlying soft tissues appear unremarkable. IMPRESSION: Suspect mild or early pneumonia retrocardiac left lower lobe. Dictated by: Riki Navaror M.D. on 01/05/2020 at 19:57 Approved by: Riki Navarro M.D. on 01/05/2020 at 19:57 ECG Data Attestation: I personally reviewed and interpreted this ECG as follows: Interpretation: Atrial fibrillation, rate 92, right bundle-branch block, similar finding on EKG September 09, 2019 at 3:33 p.m. as well as September 29, 2019 at 3:15 p.m. MDM Narrative Medical decision making narrative: Appropriate for admission. Likely early pneumonia. Possibly worse if hydration instituted with x-ray lagging behind. Lactic acid elevated Discharge Plan Departure Patient Disposition: Admitted as Observation Clinical Impression: Community acquired pneumonia Qualifiers: Laterality: left Lung location: lower lobe of lung Qualified Code(s): J18.9 - Pneumonia, unspecified organism Discharge Date/Time: 01/05/20 22:03 Referrals: Lakisha Dangelo MD [Primary Care Provider] - Admit Date/Time: 01/05/20 20:54 Admit Provider: Rell Lyn
--- NOTE | 2020-01-05 19:17 | DI.RAD.S_ITS ---
PROCEDURE: XR CHEST 1V INDICATIONS: Cough TECHNIQUE: One view of the chest was acquired. COMPARISON: [facility], CR, XR CHEST 1V, 09/09/2019, 15:59. [facility], CR, XR CHEST 1V, 08/05/2019, 12:04. FINDINGS: Surgical changes and devices: None. Lungs and pleura: Lungs are mildly abnormal and difficult to interpret due to body habitus and reduced inspiration. There likely is a slight degree of alveolar infiltration at the retrocardiac left lower lobe. No pleural effusions or pneumothorax. Mediastinum: Mediastinal contours appear normal. Heart size is normal. Bones and chest wall: No suspicious bony lesions. Overlying soft tissues appear unremarkable. IMPRESSION: Suspect mild or early pneumonia retrocardiac left lower lobe. Dictated by: Riki Navarro M.D. on 01/05/2020 at 19:57 Approved by: Riki Navarro M.D. on 01/05/2020 at 19:57
[2020-01-05 19:26] LABS: Add Manual Diff / Slide Review NO; Basophils Absolute Auto 100 /uL (0-100); Basophils Percent Auto 0.9 % (0-2); Eosinophils Absolute Auto 100 /uL (0-450); Eosinophils Percent Auto 1.3 % (2-4); Hematocrit 36.3 % (41-53); Lymphocytes Absolute Auto 1400 /uL (1100-4500); Lymphocytes Percent Auto 21.4 % (25-40); Mean Corpuscular Hemoglobin 30.1 PG (26-34); Mean Corpuscular Volume 91.2 fL (80-100); Monocytes Absolute Auto 400 /uL (0-900); Monocytes Percent Auto 6.4 % (3-14); Neutrophils Absolute Auto 4700 /uL (1500-7000); Platelet Count 210 X10^3/uL (150-400); Red Blood Cell Count 3.98 X10^6/uL (4.5-5.9); White Blood Cell Count 6.8 X10^3/uL (4.5-11.0)
[2020-01-05 19:27] LABS: INR 1.6 (0.9-1.3); Prothrombin Time 18.7 SECONDS (10.1-12.7)
[2020-01-05 19:34] LABS: Lactate (Lactic Acid) 3.5 mmol/L (0.7-2.1)
[2020-01-05 19:35] LABS: PTT Partial Thromboplastin Tim 38 SECONDS (26.4-36.2)
[2020-01-05 19:36] LABS: Alanine Aminotransferase 44 IU/L (<50); Albumin Globulin Ratio 1.2 (1.0-2.8); Alkaline Phosphatase 128 U/L (38-126); Aspartate Aminotransferase 57 IU/L (17-59); BUN Creatinine Ratio 19.1 (6-22); Blood Urea Nitrogen 35 mg/dL (9-20); Calcium 8.9 mg/dL (8.4-10.2); Carbon Dioxide 31 mmol/L (22-32); Chloride 102 mmol/L (98-107); Estimated Glomerular Filt Rate 35.4 mL/min (>60); Globulin 3.4 g/dL (1.7-4.1); Glucose 302 mg/dL (80-110); HEMOLYSIS 17 (0-50); Sodium 139 mmol/L (137-145); Total Protein 7.4 g/dL (6.3-8.2)
[2020-01-05 19:47] LABS: Troponin I < 0.012 ng/mL (0.01-0.034)
[2020-01-05 19:48] LABS: Procalcitonin 0.05 ng/mL (<0.5)
[2020-01-05] MEDS: CEFTRIAXONE 1 GM/50 ML FROZ.PIGGY IV ×2 (20:31→22:50)
[2020-01-05 20:32] LABS: COVID19 -Nasal RAPID Negative (Negative)
[2020-01-05 20:47] LABS: Adenovirus Not Detected (Not Detect); Bordetella pertussis Not Detected (Not Detect); Chlamydophila pneumoniae Not Detected (Not Detect); Coronavirus 229E Not Detected (Not Detect); Coronavirus HKU1 Not Detected (Not Detect); Coronavirus NL 63 Not Detected (Not Detect); Coronavirus OC43 Not Detected (Not Detect); Human Metapneumovirus Not Detected (Not Detect); Human Rhinovirus/Enterovirus Not Detected (Not Detect); Influenza A Not Detected (Not Detect); Influenza B Not Detected (Not Detect); Mycoplasma pneumoniae Not Detected (Not Detect); Parainfluenza Virus 1 Not Detected (Not Detect); Parainfluenza Virus 2 Not Detected (Not Detect); Parainfluenza Virus 3 Not Detected (Not Detect); Parainfluenza Virus 4 Not Detected (Not Detect); Respiratory Syncytial Virus Not Detected (Not Detect)
[2020-01-05 20:48] LABS: Digoxin 0.5 ng/mL (0.8-2.0)
[2020-01-05 21:00] VITALS: BP 129/69; PULSE 62; RESP 14
[2020-01-05] MEDS: AZITHROMYCIN 500 MG in DEXTROSE 5% IN WATER 250 ML IV (21:06)
--- NOTE | 2020-01-05 21:08 | P.HP_ITS ---
History of Present Illness History of Present Illness Date Patient Seen: 01/05/20 Time Patient Seen: 22:25 Chief complaint: WEAKNESS Narrative: Mr. Marty Heard is an 83-year-old male with past medical history of insulin-dependent type 2 diabetes, hypothyroidism, chronic atrial fibrillation (long-term anticoagulation on warfarin), hypertension, CKD III, and chronic low back pain who presents to the ER with complaints of generalized weakness and shaking chills. The patient presents to the ER by private auto after going to bed last night feeling well and waking this morning with generalized weakness, shaking chills, runny nose and shortness of breath. He further reports poor appetite but denies nausea vomiting diarrhea or constipation. Patient denies complaints of fevers and no sick contacts or known COVID-19 exposures. He denies complaints chest pain and has chronic atrial fibrillation. Patient shortness of breath with activity and a nonproductive cough. Denies complaints of abdominal pain he reports no urinary symptoms. Upon arrival the ER the patient has a temperature of 98.4?, heart rate 90, blood pressure 154/65, respirations of 18 saturating 1% air. Chest x-ray obtained which shows mild or early retrocardiac left lower lobe. Twelve lead EKG is obtained finding atrial fibrillation with controlled rate at 90 with right bundle branch block without ectopy ST or T-wave changes. On laboratory analysis he has white count of 6.8 with no shift, hemoglobin of 12.0, hematocrit of 36.3 and platelets of 210. He has a PT of 18.7, INR 1.6 and PTT 38. His electrolytes are within normal range and has a BUN of 35 and a creatinine of 1.83. His nonfasting glucose is 302. He has a total bilirubin 1.0, AST 57 ALT 44 and alkaline phosphatase of 128. Has an elevated lactic acid of 3.5 with a negative procalcitonin at less than 0.05. His troponin is negative at less than 0.012. In the ER the patient was started on azithromycin and received 1 g of ceftriaxone. The patient is admitted to the medicine service for community- acquired pneumonia. Patient History Medical History Cancer of left ear (Acute) Chronic atrial fibrillation with RVR (Acute) Diabetes (Chronic) E coli infection (Acute) Hernia of abdominal cavity (Acute) Hypothyroidism (Acute) Inguinal hernia bilateral, non-recurrent (Acute) Melanoma (Acute) Prostate cancer (Acute) Right eye injury (Acute) Surgical History History of throat surgery (Acute) History of transurethral resection of prostate (Acute) Status post bilateral hernia repair (Acute) Family & Social History Social History: household members spouse,children Safety & Behavioral: Feels Safe in Current Yes Environment Been Physically Hurt or No Threatened By a Person Tobacco & Substance use: Smoking Status Never smoker alcohol intake never alcohol intake frequency 0-2 drinks per day Substance Use Type does not use Meds Home Medications and Allergies Home Medications Medication Instructions Recorded Confirmed Type tramadol 100 mg PO TID PRN #0 02/03/16 01/06/20 History levothyroxine 50 mcg PO MOTUWETHFRSA 09/16/17 01/06/20 History warfarin [Coumadin] 5 mg PO BEDTIME 07/20/18 01/06/20 History ferrous sulfate [Iron (ferrous 325 mg PO DAILY 07/11/19 01/06/20 History sulfate)] digoxin 0.125 mg PO DAILY #30 tab 10/01/19 Rx metoprolol tartrate 12.5 mg PO BID #30 tab 10/01/19 01/06/20 Rx midodrine 5 mg PO 0600,1200,1800 #15 tab 10/01/19 01/06/20 Rx warfarin 5 mg PO QPM 01/05/20 01/05/20 History Allergies Allergy/AdvReac Type Severity Reaction Status Date / Time Penicillins Allergy Unknown Verified 01/05/20 19:19 Review of Systems Review of Systems ROS: Yes All systems reviewed with the patient and are negative except as otherwise documented Exam Vital Signs (past 8 hours): - 01/05/20 19:09 Temperature 98.4 F Pulse Rate 90 Respiratory Rate 18 Blood Pressure 154/65 H Pulse Oximetry 100 Oxygen Delivery Method Room Air Narrative Exam Narrative: GENERAL APPEARANCE: well developed, obese with a BMI of 33.7, unkempt elderly male who is mildly dyspneic. HEENT: Normocephalic, PERRLA, conjunctiva clear, EOMs intact without nystagmus, no sinus tenderness to percussion, no rhinorrhea, mucous membranes are moist and pink. NECK/THYROID: neck supple, no JVD, no thyromegaly, trachea midline. LYMPH NODES: no cervical or supraclavicular lymphadenopathy. SKIN: [place], warm and dry, scattered bruises bilateral upper extremities, venous stasis changes bilateral lower extremities with scabbed wounds bilateral anterior lower legs. HEART: regular rate and rhythm, S1-S2, no murmur appreciated, no rubs or gallops, brisk capillary refill, 2 to 3+ edema BLE LUNGS: Breath sounds diminished bilaterally, no coarseness crackles or wheezing, no cough present CHEST: Symmetrical movement, no accessory muscle use, fair tidal volume, 4 to 5 word dyspnea. ABDOMEN: Soft, no distention, no abdominal tenderness, no guarding or peritoneal signs, no organomegaly, no flank or suprapubic tenderness, active bowel tones. EXTREMITIES: moves all extremities, BUE strength is 5/5, BLE strength 4/5 and symmetrical, no deformities or joint effusions. NEUROLOGIC: AAO x3, impaired memory, cranial nerves II-XII grossly intact, diminished sensation toes left foot hearing grossly normal to speech. PSYCH: cooperative, appropriate with stable behavior Objective Labs Result Diagrams: 01/05/20 19:10 01/05/20 19:10 Labs: Laboratory Results - last 24 hr 01/05/20 01/05/20 01/05/20 19:10 19:10 19:10 WBC 6.8 RBC 3.98 L Hgb 12.0 L Hct 36.3 L MCV 91.2 MCH 30.1 MCHC 33.0 RDW 14.0 Plt Count 210 Neut % (Auto) 70.0 Lymph % (Auto) 21.4 L [place] % (Auto) 6.4 Eos % (Auto) 1.3 L Baso % (Auto) 0.9 Neut # (Auto) 4700 Lymph # (Auto) 1400 [place] # (Auto) 400 Eos # (Auto) 100 Baso # (Auto) 100 PT 18.7 H INR 1.6 H APTT Sodium Potassium Chloride Carbon Dioxide BUN Creatinine Estimated GFR BUN/Creatinine Ratio Glucose Lactate Calcium Total Bilirubin AST ALT Alkaline Phosphatase Troponin I < 0.012 Total Protein Albumin Globulin Albumin/Globulin Ratio Procalcitonin Digoxin Chlamy pneumoniae PCR Adenovirus (PCR) B.parapertussis DNA PCR Coronavirus OC43 (PCR) Coronavirus HKU1 (PCR) Coronavirus 229E (PCR) COVID-19 PCR Coronavirus NL63 (PCR) Human Metapneumovir PCR Influenza Type A (PCR) Influenza Type B (PCR) M. pneumoniae (PCR) Parainfluenza 1 (PCR) Parainfluenza 2 (PCR) Parainfluenza 3 (PCR) Parainfluenza 4 (PCR) RSV (PCR) Entero/Rhino (PCR) 01/05/20 01/05/20 01/05/20 19:10 19:10 19:10 WBC RBC Hgb Hct MCV MCH MCHC RDW Plt Count Neut % (Auto) Lymph % (Auto) [place] % (Auto) Eos % (Auto) Baso % (Auto) Neut # (Auto) Lymph # (Auto) [place] # (Auto) Eos # (Auto) Baso # (Auto) PT INR APTT Sodium 139 Potassium 5.0 Chloride 102 Carbon Dioxide 31 BUN 35 H Creatinine 1.83 H Estimated GFR 35.4 L BUN/Creatinine Ratio 19.1 Glucose 302 H Lactate 3.5 H Calcium 8.9 Total Bilirubin 1.0 AST 57 ALT 44 Alkaline Phosphatase 128 H Troponin I Total Protein 7.4 Albumin 4.0 Globulin 3.4 Albumin/Globulin Ratio 1.2 Procalcitonin 0.05 Digoxin Chlamy pneumoniae PCR Adenovirus (PCR) B.parapertussis DNA PCR Coronavirus OC43 (PCR) Coronavirus HKU1 (PCR) Coronavirus 229E (PCR) COVID-19 PCR Coronavirus NL63 (PCR) Human Metapneumovir PCR Influenza Type A (PCR) Influenza Type B (PCR) M. pneumoniae (PCR) Parainfluenza 1 (PCR) Parainfluenza 2 (PCR) Parainfluenza 3 (PCR) Parainfluenza 4 (PCR) RSV (PCR) Entero/Rhino (PCR) 01/05/20 01/05/20 01/05/20 19:10 19:10 19:25 WBC RBC Hgb Hct MCV MCH MCHC RDW Plt Count Neut % (Auto) Lymph % (Auto) [place] % (Auto) Eos % (Auto) Baso % (Auto) Neut # (Auto) Lymph # (Auto) [place] # (Auto) Eos # (Auto) Baso # (Auto) PT INR APTT 38 H D Sodium Potassium Chloride Carbon Dioxide BUN Creatinine Estimated GFR BUN/Creatinine Ratio Glucose Lactate Calcium Total Bilirubin AST ALT Alkaline Phosphatase Troponin I Total Protein Albumin Globulin Albumin/Globulin Ratio Procalcitonin Digoxin 0.5 L Chlamy pneumoniae PCR Adenovirus (PCR) B.parapertussis DNA PCR Coronavirus OC43 (PCR) Coronavirus HKU1 (PCR) Coronavirus 229E (PCR) COVID-19 PCR Negative Coronavirus NL63 (PCR) Human Metapneumovir PCR Influenza Type A (PCR) Influenza Type B (PCR) M. pneumoniae (PCR) Parainfluenza 1 (PCR) Parainfluenza 2 (PCR) Parainfluenza 3 (PCR) Parainfluenza 4 (PCR) RSV (PCR) Entero/Rhino (PCR) 01/05/20 19:25 WBC RBC Hgb Hct MCV MCH MCHC RDW Plt Count Neut % (Auto) Lymph % (Auto) [place] % (Auto) Eos % (Auto) Baso % (Auto) Neut # (Auto) Lymph # (Auto) [place] # (Auto) Eos # (Auto) Baso # (Auto) PT INR APTT Sodium Potassium Chloride Carbon Dioxide BUN Creatinine Estimated GFR BUN/Creatinine Ratio Glucose Lactate Calcium Total Bilirubin AST ALT Alkaline Phosphatase Troponin I Total Protein Albumin Globulin Albumin/Globulin Ratio Procalcitonin Digoxin Chlamy pneumoniae PCR Not detected Adenovirus (PCR) Not detected B.parapertussis DNA PCR Not detected Coronavirus OC43 (PCR) Not detected Coronavirus HKU1 (PCR) Not detected Coronavirus 229E (PCR) Not detected COVID-19 PCR Coronavirus NL63 (PCR) Not detected Human Metapneumovir PCR Not detected Influenza Type A (PCR) Not detected Influenza Type B (PCR) Not detected M. pneumoniae (PCR) Not detected Parainfluenza 1 (PCR) Not detected Parainfluenza 2 (PCR) Not detected Parainfluenza 3 (PCR) Not detected Parainfluenza 4 (PCR) Not detected RSV (PCR) Not detected Entero/Rhino (PCR) Not detected Assessment & Plan Assessment & Plan narrative: This is an 84-year-old male patient who was in usual state health upon going to bed yesterday waking this morning with generalized weakness seeking chills nasal congestion and shortness of breath. 1. Community-acquired pneumonia, acute, present on admission, active. -patient awoke this morning with complaints of shortness of breath shaking chil ls. -chest x-ray shows mild or early retrocardiac left lower pneumonia which likely minimized in the setting dehydration and will become more prominent with fluids. -white count of 6.8 without a shift, procalcitonin is 0.05. Lactic acid elevated at 3.5. -ordered ceftriaxone 2 mg IV daily. Patient has noted penicillin allergy however he recently completed a course of cefazolin without complication. -will order azithromycin 500 mg IV after obtaining a digoxin level as azithromycin may elevated due to level. -requested respiratory therapy to consult evaluate and treat. 2. Type 2 diabetes mellitus, insulin dependent with hyperglycemia, present on admission, -patient with an elevated glucose to 302 on admission, elevated glucose likely secondary to infective process, elevated creatinine consistent with CKD secondary to diabetic nephropathy at baseline. -elevated BUN, generalized weakness secondary dehydration will rehydrate normal saline at 100 cc/hour. -will continue home regimen of Lantus 25 units twice daily. -fingerstick blood sugars a.c. and hs with medium scale correctional insulin. -constant carbohydrate/heart healthy diet. -last hemoglobin A1c was 9.6 on 10/04/2019 will obtain updated hemoglobin A1c. 3. Chronic Atrial fibrillation with controlled ventricular response, present on admission. -12 lead EKG shows atrial fibrillation with controlled rate of 91 with a right bundle branch block without ectopy ST or T-wave changes. No complaints of chest pain. -continue home regimen of metoprolol 12.5 mg twice daily and digoxin 0.125 mg daily. Will obtain a digoxin level. -long-term anticoagulation on warfarin, with subtherapeutic INR at 1.6, will administer warfarin 5 mg tonight -recheck INR in the morning 4. Chronic kidney disease, stage III, present on admission, stable -creatinine is 1.83 on admission, last creatinine was 1.71 on 12/05/2019. Increased does not support acute kidney injury but is likely elevated secondary to dehydration. -rehydrate patient as above and is control blood sugars. -well avoid nephrotoxic medications, and renally dose medications indicated. 5. Chronic low back pain, -will continue home regimen of tramadol 100 mg by mouth 3 times daily as needed for pain 6. Hypothyroidism - continue home regimen of levothyroxine 50 mcg daily. VTE prophylaxis: SCDs, Enoxaparin IV fluid: Normal saline 75 cc/hour Diet: Constant carbohydrate, heart healthy Code status: DNR per patient's POLST form (undated) scanned in 07/11/2019. Surrogate decision maker is listed as his son. The patient is admitted to the hospital due to the severity of symptoms and risk for potential complications and adverse events the patient is admitted as obs ervation with a expected length of stay to be less than 2 midnights. COVID-19 COVID-19 status: Negative Result date/Date tested (Pos, Neg/Pending): 01/05/20
[2020-01-05 21:11] LABS: Magnesium 2.1 mg/dL (1.6-2.3)
[2020-01-05 21:22] LABS: Reflexed Lactate in 2 Hours Y
[2020-01-05 21:39] VITALS: BP 129/75; PULSE 93; RESP 28; O2SAT 94
[2020-01-05 21:57] LABS: Appearance Urine UA CLEAR; Bilirubin Urine UA NEGATIVE (NEGATIVE); Color Urine UA YELLOW; Glucose Urine UA 2+ g/dL (Negative); Ketones Urine UA NEGATIVE (NEGATIVE); Leukocyte Esterase Urine UA TRACE (NEGATIVE); Nitrite Urine UA NEGATIVE (Negative); Occult Blood Urine UA NEGATIVE (Negative); Protein Urine UA TRACE (Negative); Specific Gravity Urine UA 1.015 (1.000-1.035)
[2020-01-05 22:00] LABS: Bacteria Urine None Seen; RBC Urine None Seen (0-5/HPF)
[2020-01-05 22:04] LABS: Culture Indicated Urine Specimen Cultured; WBC Urine 1-5/HPF (0-5/HPF)
[2020-01-05 22:07] LABS: Lactate 2HR (Lactic Acid Rflx) 2.1 mmol/L (0.7-2.1)
[2020-01-05 22:12] VITALS: BP 143/69; PULSE 88; RESP 16; TEMP 37; O2SAT 100
[2020-01-05] MEDS: SODIUM CHLORIDE 0.9% 1,000 ML 75 ML IV (22:49)
[2020-01-05 22:51] VITALS: BMI 33.7
--- NOTE | 2020-01-05 22:58 | PC.ADMIT ---
[id number] Admission Note: The patient,Marty Heard,84 y/o, was given written information regarding hospital policies, unit procedures and contact persons. Pt arrived from ED via stretcher at 2205. Awake, alert and oriented. Slider board used to transfer to bed. IV ABX infusing. Oriented to room and call system. Bed alarm on. SCD's on. Pt verbalized he will call for needs. Patient's smoking status: Never smoker. Vital Signs - 8 hr 01/05/20 19:09 01/05/20 21:00 01/05/20 21:39 Temperature 98.4 F Pulse Rate 90 62 93 H Respiratory Rate 18 14 28 H Blood Pressure 154/65 H 129/69 129/75 Pulse Oximetry 100 94 01/05/20 22:12 Temperature 98.6 F Pulse Rate 88 Respiratory Rate 16 Blood Pressure 143/69 H Pulse Oximetry 100
[2020-01-05 23:00] VITALS: BP 131/70; BP 145/85; BP 146/76; PULSE 74; PULSE 84; PULSE 89
[2020-01-05 23:20] VITALS: BP 131/70; PULSE 74; RESP 18; TEMP 36.4; O2SAT 100
[2020-01-06] VITALS (12 sets, daily range): BP systolic 89–143; BP diastolic 44–78; PULSE 57–96; RESP 16–22; TEMP 36.2–36.9; O2SAT 95–100
[2020-01-06] MEDS: METOPROLOL IR 25 MG TABLET 12.5 MG PO ×3 (00:34→20:43)
[2020-01-06] MEDS: INSULIN GLARGINE 100 UNIT/ML 3ML PEN 22 UNIT SUBCUT ×2 (00:37→20:46)
[2020-01-06] MEDS: CALCIUM CARBONATE 500 MG TAB 1000 MG PO (04:08)
[2020-01-06] MEDS: ACETAMINOPHEN 325 MG TABLET 650 MG PO (04:10)
[2020-01-06] MEDS: TRAMADOL 50 MG TABLET 100 MG PO ×2 (04:47→10:11)
[2020-01-06] MEDS: LEVOTHYROXINE 50 MCG TABLET PO (05:06)
[2020-01-06 05:47] LABS: INR 1.6 (0.9-1.3); Prothrombin Time 18.7 SECONDS (10.1-12.7)
[2020-01-06 05:48] LABS: Add Manual Diff / Slide Review NO; Basophils Absolute Auto 100 /uL (0-100); Basophils Percent Auto 0.9 % (0-2); Eosinophils Absolute Auto 200 /uL (0-450); Eosinophils Percent Auto 2.3 % (2-4); Hematocrit 32.7 % (41-53); Lymphocytes Absolute Auto 1600 /uL (1100-4500); Lymphocytes Percent Auto 22.2 % (25-40); Mean Corpuscular HGB Conc 33.8 % (30-36); Mean Corpuscular Hemoglobin 30.2 PG (26-34); Mean Corpuscular Volume 89.3 fL (80-100); Monocytes Absolute Auto 500 /uL (0-900); Monocytes Percent Auto 7.5 % (3-14); Neutrophils Absolute Auto 4700 /uL (1500-7000); Neutrophils Percent Auto 67.1 % (50-75); Platelet Count 182 X10^3/uL (150-400); Red Blood Cell Count 3.66 X10^6/uL (4.5-5.9); Red Cell Distribution Width 13.8 % (11.6-14.8); White Blood Cell Count 7.1 X10^3/uL (4.5-11.0)
[2020-01-06 05:50] LABS: HEMOLYSIS < 15 (0-50); Potassium 3.6 mmol/L (3.4-5.1)
[2020-01-06 05:52] LABS: BUN Creatinine Ratio 17.2 (6-22); Blood Urea Nitrogen 29 mg/dL (9-20); Calcium 8.7 mg/dL (8.4-10.2); Carbon Dioxide 29 mmol/L (22-32); Chloride 105 mmol/L (98-107); Estimated Glomerular Filt Rate 38.9 mL/min (>60); Glucose 168 mg/dL (80-110); Sodium 138 mmol/L (137-145)
[2020-01-06 06:24] LABS: Hemoglobin A1C% w Est Avg Glu 10.7 % (4.0-6.0)
[2020-01-06] MEDS: ENOXAPARIN 40 MG/0.4 ML SYRINGE SUBCUT (08:15)
[2020-01-06] MEDS: SODIUM CHLORIDE 0.9% FLUSH 10 ML IV (08:17)
[2020-01-06] MEDS: INSULIN GLARGINE 100 UNIT/ML 3ML PEN 25 UNIT SUBCUT (08:18)
[2020-01-06] MEDS: DIGOXIN 0.125 MG TABLET PO (09:41)
[2020-01-06] MEDS: MIDODRINE HCL 5 MG TABLET PO ×3 (09:41→16:50)
--- NOTE | 2020-01-06 10:48 | PT.IIE ---
Surgical History (Last Reviewed 01/05/20 @ 21:24 by FRANK Sparks) History of throat surgery (Acute) History of transurethral resection of prostate (Acute) Status post bilateral hernia repair (Acute) Medical History (Last Reviewed 01/05/20 @ 21:18 by FRANK Sparks) Cancer of left ear (Acute) Chronic atrial fibrillation with RVR (Acute) Diabetes (Chronic) E coli infection (Acute) Hernia of abdominal cavity (Acute) Hypothyroidism (Acute) Inguinal hernia bilateral, non-recurrent (Acute) Melanoma (Acute) Prostate cancer (Acute) Right eye injury (Acute) Physical Therapy Inpatient Evaluation/Re-Eval M1 PT/OT-IP Prior Functional Status Start: 01/06/20 14:02 Freq: NEEDED Status: Active Protocol: Document 01/06/20 10:48 AB (Rec: 01/06/20 14:21 [email or web address]) Medical Review Prior Functional Status Medical History Reviewed Yes Communication able to make needs known Mobility and Gait pt stated that he is modified independent with all mobilities and ambulation using FWW/4WW but occasionally uses a SPC depending on how he feels Social History Household Members spouse,children Living Arrangements House Number of Floors (Floors) Two Floors Number of Stairs To Enter/Railing? stays on main level of the house has a ramp to enter Home Environment High Toilet,Walk in Shower, Built-In Shower Seat,Ramp Home Equipment Front Wheel Walker,Four Wheel Walker,Straight Cane,Hand Held Shower,Grab Bars Near Toilet, Grab Bars In Shower Additional Social History Comment pt stated that his spouse and son has their own medical issues and is limited with the assistance they can provide for the pt. pt stated that he has a high bed and has 2 steps to get into the bed but has a L side transfer pole and bed rail on R to get into the bed. Pt gets in/out on the L side of the bed also stated that he has a transfer pole next to his recliner chair. pt also stated that he has been receiving homehealth PT/ OT/nurse care M2 PT-IP Current Condition Start: 01/06/20 14:02 Freq: NEEDED Status: Active Protocol: Document 01/06/20 10:48 AB (Rec: 01/06/20 14:21 AB [email or web address]) Physical Therapy Current Condition Current Condition Evaluation Date 10/24/20 Treatment Diagnosis PNA; generalized weakness Onset Date 01/05/20 M3 PT-IP Subjective Start: 01/06/20 14:02 Freq: NEEDED Status: Active Protocol: Document 01/06/20 10:48 AB (Rec: 01/06/20 14:21 AB [email or web address]) Subjective Physical Therapy Visit Type Type Initial Evaluation Visit Start Time 10:48 Visit Stop Time 11:20 Total Visit Minutes 32 Number of CURRICULUM SUPERVISOR Visits 0 Physical Therapy Visit Comments Patient Comments pt is agreeable to do PT Therapy Pain Assessment Pain When Pain Assessed At Rest Location Headache Scale Used scale not stated M4 PT-IP Mobility and Gait Start: 01/06/20 14:02 Freq: NEEDED Status: Active Protocol: Document 01/06/20 10:48 AB (Rec: 01/06/20 14:21 AB [email or web address]) PT-Bed Mobility Assessment Supine to Sit Supine to Sit Standby Assistance,Bedrails Sit to Supine Sit to Supine Standby Assistance,Bedrails PT-Transfer Assessment Sit to and From Stand Sit to and from Stand Standby Assistance,Contact Guard Assistance,1 Person Assistance,Use of Upper Extremities Equipment Transfer Assistive Device Gait Belt,Front Wheeled Walker Orthotic/Prosthetic Devices or Brace: No Transfers Transfer Destination Bed,Chair Transfer Technique Stand Step Pivot Transfer Ability Level of Assist Standby Assistance,Contact Guard Assistance,1 Person Assistance,Use of Upper Extremities Comments Mobility Comments pt sitting on chair. completed sit to stand SBA to CGA and ambulated in room using FWW ~ 35 ft SBA to CGA. completed supine<>sit SBA using bed rail. transferred to chair using FWW SBA. positioned on chair. call light and table placed within reach. BP 117/63 without any complaints of dizziness O2 sat 100% IA 70 HR 70 Gait Assessment Gait Gait Assistance Required: Standby Assistance,Contact Guard Assist Distance (Feet) 35 Able to Maintain Weight Bearing Status Yes During Gait Assistive Devices Assistive Device Gait Belt,Front Wheeled Walker Orthotic/Prosthetic Devices or Brace: No Gait Deviations General Gait Pattern Antalgic,Decreased Stride Length,Decreased Feet Clearance,Step-to Gait Factors Limiting Gait Function Factors Limiting Gait Function Decreased Activity Tolerance, Decreased Strength,Poor Balance,Poor Safety Awareness PT-Balance Assessment Sitting Balance and Reactions Static Sitting Balance Ability Good Dynamic Sitting Balance Ability Good Standing Balance and Reactions Static Standing Balance Ability Fair Dynamic Standing Balance Ability Fair Device Used FWW M5 PT-IP Objective Assessments Start: 01/06/20 14:02 Freq: NEEDED Status: Active Protocol: Document 01/06/20 10:48 AB (Rec: 01/06/20 14:21 AB [email or web address]) Orientation Orientation/Cognition Level of Alertness Alert Orientation Name,Place,Situation Language Function Ability Hard of Hearing Safety Awareness Decreased Safety Awareness Gross Range of Motion Lower Extremity ROM Assessment Within Functional Limits Strength Lower Extremity Strength Assessment Bilaterally Impaired Hip 4-/5 Knee 4-/5 Ankle 4-/5 Muscle Tone Muscle Tone WNL Yes M6 PT-IP Treatment Start: 01/06/20 14:02 Freq: NEEDED Status: Active Protocol: Document 01/06/20 10:48 AB (Rec: 01/06/20 14:21 AB [email or web address]) Physical Therapy Treatment Education Education Provided Safety M7 PT-IP Assessment and Plan Start: 01/06/20 14:02 Freq: NEEDED Status: Active Protocol: Document 01/06/20 10:48 AB (Rec: 01/06/20 14:21 AB [email or web address]) PT Summary Assessment and Plan Potential Rehabilitation Potential Good Status of Condition at Evaluation Stable Summary Impairments Pain,ROM,Strength,Balance, Coordination,Sensation,Bed Mobility,Transfers,Gait, Activity Tolerance Assessment Summary pt requiring SBA to CGA with mobility. lives with family but they are not going to be able to provide much assistance. pt will need to continue with homehealth services upon d/c. Goals Bed Mobility Goal Independent Transfer Goal Independent Gait Goal Independent,Front Wheel Walker ,Four Wheel Walker Gait Distance 125 Other Goals up/down 2 steps B rails SBA improve ambulation using SPC 100 ft SBA Days to Meet Goals 5 Frequency of Treatment Frequency Of Treatment Once a Day Treatment Plan Physical Therapy Treatment Plan Bed Mobility Training,Transfer Training,Gait Training, Therapeutic Exercise,Balance Retraining,Discharge Planning, Neuromuscular Re-ed, Coordination Retraining Recommendations To Nursing Amount of Assist Needed 1 Person Assist Discharge Recommendations PT Discharge Recommendations Home with Assistance,Home Health Transportation Needs at Discharge Private Vehicle
--- NOTE | 2020-01-06 12:22 | PC.NURSE ---
Day Shift Report received, care assumed 0700. A&Ox3. VSS, though patient does experience a significant blood pressure drop with orthostatics. Pt's midodrine ordered (patient has Rx but it is unclear how recently he has been taking it at home). Pt. reports chronic back at comfortable level. Reports headache, received Tramadol and obtained relief. 1130 Blood glucose 350, no sliding scale ordered, Dr. Jenkins informed.
[2020-01-06] MEDS: SODIUM CHLORIDE 0.9% 1,000 ML 75 ML IV (13:20)
--- NOTE | 2020-01-06 13:24 | CM.DANOTE ---
DCP assessment: EMR reviewed: Patient is a 84 yr old male who was admitted for Pnemonia - covid, Patients pcp is Dr. Dangelo. Patient currently lives with his who has dementia and his son Jason who is there caregiver. Patient has had [facility] in the past and is open to this if needed at D/c. Currently patient states he doesn't think he will need HH services. Cm department will keep an eye to make sure patient doesnt need any help with HH. patient is Independent at base line with all ADLs and drives. I: Wing and self pay Plan: D/c home with and son when medically stable. no identified D/C planning needs noted at this time. If patient does need HH services at d/C patient stated he liked [facility] and would want to work with them again. Lo Jacobo RN Discharge Planning/Care Management Discharge Assessment Start: 01/06/20 13:19 Freq: Status: Active Protocol: Document 01/06/20 13:19 HS (Rec: 01/06/20 13:22 HS [id number]) Discharge Planning Assessment Assigned Critical Care Physician Lo Jacobo RN DPOA/Assigned Designee Name Jason Heard (son) DPOA Contact Information [phone] Advance Directives? Yes: POLST Advance Directives on File Yes History Provided By Patient,Medical Record Has Patient been admitted in last 30 No days? Prior Living Arrangements House Household Members spouse,children Comment patient lives with his who has DX of dementia and son who is his caregiver. Type of transporation used prior to Relies on Others admit Independent with ADL's Yes Is patient alert and oriented? Yes Discharge Plan Home Transportation Arrangement Family Referrals Initiated None needed Additional Comment Will continue to assess Whiteboard Updated in Patient Room with Yes name and ext. # of Critical Care Physician Review Status In Process Next Review Type Continued Stay Review
--- NOTE | 2020-01-06 14:17 | P.PN_ITS ---
Subjective Subjective Date Patient Seen: 01/06/20 Time Patient Seen: 12:45 Interval history: Mr. Marty Heard is an 83-year-old male with past medical history of insulin-dependent type 2 diabetes, hypothyroidism, chronic atrial fibrillation (long-term anticoagulation on warfarin), hypertension, CKD III, and chronic low back pain who was admitted yesterday evening with community-acquired pneumonia. His shortness of breath is improved slightly today but he still has some dyspnea on exertion and feels quite weak. He denies any chest pain or palpitations today. He has no nausea or vomiting and denies any fevers or chills. He is eagerly awaiting to ambulate with physical therapy later today in the hopes of getting stronger so that he may return home. His glucoses are still uncontrolled, and his A1c came back at 10.7%. His pneumonia severity index was quite high. Exam Vital Signs (past 8 hours): - 01/06/20 08:00 01/06/20 08:29 01/06/20 09:41 Temperature 97.8 F Pulse Rate 81 87 87 Pulse Rate [Orthostatic Lying] Pulse Rate [Orthostatic Sitting] Pulse Rate [Orthostatic Standing] Respiratory Rate 18 22 Blood Pressure 122/60 122/60 Blood Pressure [Orthostatic Lying] Blood Pressure [Orthostatic Sitting] Blood Pressure [Orthostatic Standing] Pulse Oximetry 100 97 01/06/20 10:11 01/06/20 12:00 Temperature 97.8 F Pulse Rate 78 Pulse Rate [Orthostatic Lying] 76 Pulse Rate [Orthostatic Sitting] 87 Pulse Rate [Orthostatic Standing] 93 H Respiratory Rate 16 Blood Pressure 103/68 Blood Pressure [Orthostatic Lying] 104/54 L Blood Pressure [Orthostatic Sitting] 105/48 L Blood Pressure [Orthostatic Standing] 89/44 L Pulse Oximetry 100 Oxygen Delivery Method Room Air Oxygen Flow Rate 0 Narrative Exam Narrative: GENERAL APPEARANCE: well developed, obese with a BMI of 33.7, in no acute distress. HEENT: Normocephalic, PERRLA, conjunctiva clear, EOMs intact without nystagmus, no sinus tenderness to percussion, no rhinorrhea, mucous membranes are moist and pink. NECK/THYROID: neck supple, no JVD, no thyromegaly, trachea midline. LYMPH NODES: no cervical or supraclavicular lymphadenopathy. SKIN: [place], warm and dry, scattered bruises bilateral upper extremities, venous stasis changes bilateral lower extremities with scabbed wounds bilateral anterior lower legs. HEART: regular rate and rhythm, S1-S2, no murmur appreciated, no rubs or gallops, brisk capillary refill, 2+ edema BLE LUNGS: Breath sounds diminished bilaterally, no coarseness crackles or wheezing, no cough present CHEST: Symmetrical movement, no accessory muscle use, fair tidal volume, improved conversational dyspnea. ABDOMEN: Soft, no distention, no abdominal tenderness, no guarding or peritoneal signs, no organomegaly, no flank or suprapubic tenderness, active bowel tones. EXTREMITIES: moves all extremities, BUE strength is 5/5, BLE strength 4/5 and symmetrical, no deformities or joint effusions. NEUROLOGIC: AAO x3, impaired memory, cranial nerves II-XII grossly intact, diminished sensation toes left foot hearing grossly normal to speech. PSYCH: cooperative, appropriate with stable behavior Objective Labs Result Diagrams: 01/06/20 05:20 01/06/20 05:20 Labs: Laboratory Results - last 24 hr 01/05/20 01/05/20 01/05/20 19:10 19:10 19:10 WBC 6.8 RBC 3.98 L Hgb 12.0 L Hct 36.3 L MCV 91.2 MCH 30.1 MCHC 33.0 RDW 14.0 Plt Count 210 Neut % (Auto) 70.0 Lymph % (Auto) 21.4 L [place] % (Auto) 6.4 Eos % (Auto) 1.3 L Baso % (Auto) 0.9 Neut # (Auto) 4700 Lymph # (Auto) 1400 [place] # (Auto) 400 Eos # (Auto) 100 Baso # (Auto) 100 PT 18.7 H INR 1.6 H APTT Sodium Potassium Chloride Carbon Dioxide BUN Creatinine Estimated GFR BUN/Creatinine Ratio Glucose Hemoglobin A1c Lactate Calcium Magnesium Total Bilirubin AST ALT Alkaline Phosphatase Troponin I < 0.012 Total Protein Albumin Globulin Albumin/Globulin Ratio Procalcitonin Urine Color Urine Appearance Urine pH Ur Specific [place] Urine Protein Urine Glucose (UA) Urine Ketones Urine Occult Blood Urine Nitrate Urine Bilirubin Urine Urobilinogen Ur Leukocyte Esterase Urine RBC Urine WBC Urine Bacteria Ur Culture Indicated? Digoxin Chlamy pneumoniae PCR Adenovirus (PCR) B.parapertussis DNA PCR Coronavirus OC43 (PCR) Coronavirus HKU1 (PCR) Coronavirus 229E (PCR) COVID-19 PCR Coronavirus NL63 (PCR) Human Metapneumovir PCR Influenza Type A (PCR) Influenza Type B (PCR) M. pneumoniae (PCR) Parainfluenza 1 (PCR) Parainfluenza 2 (PCR) Parainfluenza 3 (PCR) Parainfluenza 4 (PCR) RSV (PCR) Entero/Rhino (PCR) 01/05/20 01/05/20 01/05/20 19:10 19:10 19:10 WBC RBC Hgb Hct MCV MCH MCHC RDW Plt Count Neut % (Auto) Lymph % (Auto) [place] % (Auto) Eos % (Auto) Baso % (Auto) Neut # (Auto) Lymph # (Auto) [place] # (Auto) Eos # (Auto) Baso # (Auto) PT INR APTT Sodium 139 Potassium 5.0 Chloride 102 Carbon Dioxide 31 BUN 35 H Creatinine 1.83 H Estimated GFR 35.4 L BUN/Creatinine Ratio 19.1 Glucose 302 H Hemoglobin A1c Lactate 3.5 H Calcium 8.9 Magnesium Total Bilirubin 1.0 AST 57 ALT 44 Alkaline Phosphatase 128 H Troponin I Total Protein 7.4 Albumin 4.0 Globulin 3.4 Albumin/Globulin Ratio 1.2 Procalcitonin 0.05 Urine Color Urine Appearance Urine pH Ur Specific [place] Urine Protein Urine Glucose (UA) Urine Ketones Urine Occult Blood Urine Nitrate Urine Bilirubin Urine Urobilinogen Ur Leukocyte Esterase Urine RBC Urine WBC Urine Bacteria Ur Culture Indicated? Digoxin Chlamy pneumoniae PCR Adenovirus (PCR) B.parapertussis DNA PCR Coronavirus OC43 (PCR) Coronavirus HKU1 (PCR) Coronavirus 229E (PCR) COVID-19 PCR Coronavirus NL63 (PCR) Human Metapneumovir PCR Influenza Type A (PCR) Influenza Type B (PCR) M. pneumoniae (PCR) Parainfluenza 1 (PCR) Parainfluenza 2 (PCR) Parainfluenza 3 (PCR) Parainfluenza 4 (PCR) RSV (PCR) Entero/Rhino (PCR) 01/05/20 01/05/20 01/05/20 19:10 19:10 19:10 WBC RBC Hgb Hct MCV MCH MCHC RDW Plt Count Neut % (Auto) Lymph % (Auto) [place] % (Auto) Eos % (Auto) Baso % (Auto) Neut # (Auto) Lymph # (Auto) [place] # (Auto) Eos # (Auto) Baso # (Auto) PT INR APTT 38 H D Sodium Potassium Chloride Carbon Dioxide BUN Creatinine Estimated GFR BUN/Creatinine Ratio Glucose Hemoglobin A1c Lactate Calcium Magnesium 2.1 Total Bilirubin AST ALT Alkaline Phosphatase Troponin I Total Protein Albumin Globulin Albumin/Globulin Ratio Procalcitonin Urine Color Urine Appearance Urine pH Ur Specific [place] Urine Protein Urine Glucose (UA) Urine Ketones Urine Occult Blood Urine Nitrate Urine Bilirubin Urine Urobilinogen Ur Leukocyte Esterase Urine RBC Urine WBC Urine Bacteria Ur Culture Indicated? Digoxin 0.5 L Chlamy pneumoniae PCR Adenovirus (PCR) B.parapertussis DNA PCR Coronavirus OC43 (PCR) Coronavirus HKU1 (PCR) Coronavirus 229E (PCR) COVID-19 PCR Coronavirus NL63 (PCR) Human Metapneumovir PCR Influenza Type A (PCR) Influenza Type B (PCR) M. pneumoniae (PCR) Parainfluenza 1 (PCR) Parainfluenza 2 (PCR) Parainfluenza 3 (PCR) Parainfluenza 4 (PCR) RSV (PCR) Entero/Rhino (PCR) 01/05/20 01/05/20 01/05/20 19:25 19:25 21:50 WBC RBC Hgb Hct MCV MCH MCHC RDW Plt Count Neut % (Auto) Lymph % (Auto) [place] % (Auto) Eos % (Auto) Baso % (Auto) Neut # (Auto) Lymph # (Auto) [place] # (Auto) Eos # (Auto) Baso # (Auto) PT INR APTT Sodium Potassium Chloride Carbon Dioxide BUN Creatinine Estimated GFR BUN/Creatinine Ratio Glucose Hemoglobin A1c Lactate 2.1 Calcium Magnesium Total Bilirubin AST ALT Alkaline Phosphatase Troponin I Total Protein Albumin Globulin Albumin/Globulin Ratio Procalcitonin Urine Color Urine Appearance Urine pH Ur Specific [place] Urine Protein Urine Glucose (UA) Urine Ketones Urine Occult Blood Urine Nitrate Urine Bilirubin Urine Urobilinogen Ur Leukocyte Esterase Urine RBC Urine WBC Urine Bacteria Ur Culture Indicated? Digoxin Chlamy pneumoniae PCR Not detected Adenovirus (PCR) Not detected B.parapertussis DNA PCR Not detected Coronavirus OC43 (PCR) Not detected Coronavirus HKU1 (PCR) Not detected Coronavirus 229E (PCR) Not detected COVID-19 PCR Negative Coronavirus NL63 (PCR) Not detected Human Metapneumovir PCR Not detected Influenza Type A (PCR) Not detected Influenza Type B (PCR) Not detected M. pneumoniae (PCR) Not detected Parainfluenza 1 (PCR) Not detected Parainfluenza 2 (PCR) Not detected Parainfluenza 3 (PCR) Not detected Parainfluenza 4 (PCR) Not detected RSV (PCR) Not detected Entero/Rhino (PCR) Not detected 01/05/20 01/06/20 01/06/20 21:53 05:20 05:20 WBC 7.1 RBC 3.66 L Hgb 11.0 L Hct 32.7 L MCV 89.3 MCH 30.2 MCHC 33.8 RDW 13.8 Plt Count 182 Neut % (Auto) 67.1 Lymph % (Auto) 22.2 L [place] % (Auto) 7.5 Eos % (Auto) 2.3 Baso % (Auto) 0.9 Neut # (Auto) 4700 Lymph # (Auto) 1600 [place] # (Auto) 500 Eos # (Auto) 200 Baso # (Auto) 100 PT 18.7 H INR 1.6 H APTT Sodium Potassium Chloride Carbon Dioxide BUN Creatinine Estimated GFR BUN/Creatinine Ratio Glucose Hemoglobin A1c Lactate Calcium Magnesium Total Bilirubin AST ALT Alkaline Phosphatase Troponin I Total Protein Albumin Globulin Albumin/Globulin Ratio Procalcitonin Urine Color Yellow Urine Appearance Clear Urine pH 8.0 Ur Specific [place] 1.015 Urine Protein Trace H Urine Glucose (UA) 2+ H Urine Ketones Negative Urine Occult Blood Negative Urine Nitrate Negative Urine Bilirubin Negative Urine Urobilinogen 1.0 Ur Leukocyte Esterase Trace H Urine RBC None seen Urine WBC 1-5/hpf Urine Bacteria None seen Ur Culture Indicated? Specimen cultured Digoxin Chlamy pneumoniae PCR Adenovirus (PCR) B.parapertussis DNA PCR Coronavirus OC43 (PCR) Coronavirus HKU1 (PCR) Coronavirus 229E (PCR) COVID-19 PCR Coronavirus NL63 (PCR) Human Metapneumovir PCR Influenza Type A (PCR) Influenza Type B (PCR) M. pneumoniae (PCR) Parainfluenza 1 (PCR) Parainfluenza 2 (PCR) Parainfluenza 3 (PCR) Parainfluenza 4 (PCR) RSV (PCR) Entero/Rhino (PCR) 01/06/20 01/06/20 05:20 05:20 WBC RBC Hgb Hct MCV MCH MCHC RDW Plt Count Neut % (Auto) Lymph % (Auto) [place] % (Auto) Eos % (Auto) Baso % (Auto) Neut # (Auto) Lymph # (Auto) [place] # (Auto) Eos # (Auto) Baso # (Auto) PT INR APTT Sodium 138 Potassium 3.6 D Chloride 105 Carbon Dioxide 29 BUN 29 H Creatinine 1.69 H Estimated GFR 38.9 L BUN/Creatinine Ratio 17.2 Glucose 168 H D Hemoglobin A1c 10.7 H Lactate Calcium 8.7 Magnesium Total Bilirubin AST ALT Alkaline Phosphatase Troponin I Total Protein Albumin Globulin Albumin/Globulin Ratio Procalcitonin Urine Color Urine Appearance Urine pH Ur Specific [place] Urine Protein Urine Glucose (UA) Urine Ketones Urine Occult Blood Urine Nitrate Urine Bilirubin Urine Urobilinogen Ur Leukocyte Esterase Urine RBC Urine WBC Urine Bacteria Ur Culture Indicated? Digoxin Chlamy pneumoniae PCR Adenovirus (PCR) B.parapertussis DNA PCR Coronavirus OC43 (PCR) Coronavirus HKU1 (PCR) Coronavirus 229E (PCR) COVID-19 PCR Coronavirus NL63 (PCR) Human Metapneumovir PCR Influenza Type A (PCR) Influenza Type B (PCR) M. pneumoniae (PCR) Parainfluenza 1 (PCR) Parainfluenza 2 (PCR) Parainfluenza 3 (PCR) Parainfluenza 4 (PCR) RSV (PCR) Entero/Rhino (PCR) Assessment & Plan Assessment & Plan narrative: Mr. Marty Heard is an 83-year-old male with past medical history of insulin-dependent type 2 diabetes, hypothyroidism, chronic atrial fibrillation (long-term anticoagulation on warfarin), hypertension, CKD III, and chronic low back pain who was admitted yesterday evening with community-acquired pneumonia. 1. Community-acquired pneumonia, acute, present on admission, active. -chest x-ray shows mild or early retrocardiac left lower pneumonia which likely minimized in the setting dehydration. -white count of 6.8 without a shift, procalcitonin is 0.05. Lactic acid eleva tiara at 3.5 on admission. now improved. -continue ceftriaxone 2 mg IV daily. Patient has noted penicillin allergy however he recently completed a course of cefazolin without complication. Continue azithromycin x3 days. -appreciate respiratory therapy assistance with management. 2. Type 2 diabetes mellitus, insulin dependent with hyperglycemia, present on admission, -patient with an elevated glucose to 302 on admission, elevated glucose likely secondary to infective process, elevated creatinine consistent with CKD secondary to diabetic nephropathy at baseline. -elevated BUN, generalized weakness secondary dehydration will rehydrate normal saline at 100 cc/hour. -will continue home regimen of Lantus twice daily. -fingerstick blood sugars a.c. and hs with medium scale correctional insulin. -constant carbohydrate/heart healthy diet. -last hemoglobin A1c was 9.6 on 10/04/2019, increased to now 10.7 on admission. 3. Chronic Atrial fibrillation with controlled ventricular response, present on admission. -12 lead EKG shows atrial fibrillation with controlled rate of 91 with a right bundle branch block without ectopy ST or T-wave changes. No complaints of chest pain. -continue home regimen of metoprolol 12.5 mg twice daily and digoxin 0.125 mg daily. Dig level 0.5 on admission. -long-term anticoagulation on warfarin, with subtherapeutic INR at 1.6. Continue home dosing. 4. Chronic kidney disease, stage III, present on admission, stable -creatinine 1.83 on admission, last creatinine was 1.71 on 12/05/2019. Increased does not support acute kidney injury but is likely elevated secondary to dehydration. Improved slightly to 1.69 today. -well avoid nephrotoxic medications, and renally dose medications indicated. 5. Chronic low back pain, -will continue home regimen of tramadol 100 mg by mouth 3 times daily as needed for pain 6. Hypothyroidism - continue home regimen of levothyroxine 50 mcg daily. 7. Orthostatic hypotension, chronic. - continue midodrine. VTE prophylaxis: SCDs, Enoxaparin Diet: Constant carbohydrate, heart healthy Code status: DNR per patient's POLST form (undated) scanned in 07/11/2019. Surrogate decision maker is listed as his son. Changed to inpatient status. His PSI is markedly elevated. Anticipate possible discharge home with home health in the next 1-2 days. PT evaluation pending. Quality VTE Deep Vein Thrombosis/Pulmonary Embolism Present on Admission: No
[2020-01-06] MEDS: INSULIN ASPART 100 UNIT/ML INSULN PEN SUBCUT ×2 (16:56→20:46)
[2020-01-06] MEDS: WARFARIN 5 MG TABLET PO (16:56)
[2020-01-06] MEDS: AZITHROMYCIN 500 MG in DEXTROSE 5% IN WATER 250 ML IV (19:30)
[2020-01-06] MEDS: CEFTRIAXONE 2 GM/50 ML FROZ.PIGGY IV (20:43)
[2020-01-07 04:00] VITALS: BP 132/81; PULSE 80
[2020-01-07 04:40] VITALS: BP 132/51; PULSE 80; RESP 18; TEMP 36.3; O2SAT 100
[2020-01-07] MEDS: SODIUM CHLORIDE 0.9% 1,000 ML 75 ML IV (05:00)
[2020-01-07] MEDS: MIDODRINE HCL 5 MG TABLET PO ×2 (05:48→12:19)
[2020-01-07 05:55] LABS: INR 1.5 (0.9-1.3); Prothrombin Time 17.8 SECONDS (10.1-12.7)
[2020-01-07 05:58] LABS: Add Manual Diff / Slide Review NO; Basophils Absolute Auto 100 /uL (0-100); Basophils Percent Auto 0.9 % (0-2); Eosinophils Absolute Auto 400 /uL (0-450); Hematocrit 34.2 % (41-53); Hemoglobin 11.4 g/dL (13.5-17.5); Lymphocytes Absolute Auto 1600 /uL (1100-4500); Lymphocytes Percent Auto 23.1 % (25-40); Mean Corpuscular HGB Conc 33.2 % (30-36); Mean Corpuscular Hemoglobin 30.2 PG (26-34); Mean Corpuscular Volume 90.8 fL (80-100); Monocytes Absolute Auto 600 /uL (0-900); Monocytes Percent Auto 9.5 % (3-14); Neutrophils Absolute Auto 4100 /uL (1500-7000); Neutrophils Percent Auto 60.5 % (50-75); Platelet Count 185 X10^3/uL (150-400); Red Blood Cell Count 3.77 X10^6/uL (4.5-5.9); Red Cell Distribution Width 14.2 % (11.6-14.8); White Blood Cell Count 6.7 X10^3/uL (4.5-11.0)
[2020-01-07 06:02] LABS: BUN Creatinine Ratio 17.6 (6-22); Blood Urea Nitrogen 27 mg/dL (9-20); Calcium 8.6 mg/dL (8.4-10.2); Carbon Dioxide 29 mmol/L (22-32); Chloride 108 mmol/L (98-107); Estimated Glomerular Filt Rate 43.6 mL/min (>60); Glucose 111 mg/dL (80-110); HEMOLYSIS < 15 (0-50); Potassium 4.6 mmol/L (3.4-5.1); Sodium 139 mmol/L (137-145)
[2020-01-07 07:00] VITALS: BP 114/67; BP 85/50; BP 94/51; PULSE 78; PULSE 84; PULSE 99
[2020-01-07 07:45] VITALS: PULSE 84; RESP 18; O2SAT 100
[2020-01-07 08:00] VITALS: BP 85/50; PULSE 78; RESP 15; TEMP 35.8; O2SAT 100
[2020-01-07] MEDS: ENOXAPARIN 40 MG/0.4 ML SYRINGE SUBCUT (10:38)
[2020-01-07] MEDS: INSULIN GLARGINE 100 UNIT/ML 3ML PEN 25 UNIT SUBCUT (10:39)
[2020-01-07] MEDS: METOPROLOL IR 25 MG TABLET 12.5 MG PO (10:41)
[2020-01-07] MEDS: DIGOXIN 0.125 MG TABLET PO (10:41)
[2020-01-07] MEDS: SODIUM CHLORIDE 0.9% FLUSH 10 ML IV (10:42)
[2020-01-07 11:51] VITALS: BP 114/63; PULSE 81; RESP 15; TEMP 36.3; O2SAT 98
[2020-01-07] MEDS: INSULIN ASPART 100 UNIT/ML INSULN PEN SUBCUT (12:18)
--- NOTE | 2020-01-07 12:33 | P.DS_ITS ---
History of Present Illness History of Present Illness Date Patient Seen: 01/07/20 Time Patient Seen: 12:33 Chief complaint: WEAKNESS Narrative: As per FRANK Sparks: Mr. Marty Heard is an 83-year-old male with past medical history of insulin- dependent type 2 diabetes, hypothyroidism, chronic atrial fibrillation (long- term anticoagulation on warfarin), hypertension, CKD III, and chronic low back pain who presents to the ER with complaints of generalized weakness and shaking chills. The patient presents to the ER by private auto after going to bed last night feeling well and waking this morning with generalized weakness, shaking chills, runny nose and shortness of breath. He further reports poor appetite but denies nausea vomiting diarrhea or constipation. Patient denies complaints of fevers and no sick contacts or known COVID-19 exposures. He denies complaints chest pain and has chronic atrial fibrillation. Patient shortness of breath with activity and a nonproductive cough. Denies complaints of abdominal pain he reports no urinary symptoms. Upon arrival the ER the patient has a temperature of 98.4?, heart rate 90, blood pressure 154/65, respirations of 18 saturating 91% on room air. Chest x-ray obtained which shows mild or early retrocardiac left lower lobe. Twelve lead EKG is obtained finding atrial fibrillation with controlled rate at 90 with right bundle branch block without ectopy ST or T-wave changes. On laboratory analysis he has white count of 6.8 with no shift, hemoglobin of 12.0, hematocrit of 36.3 and platelets of 210. He has a PT of 18.7, INR 1.6 and PTT 38. His electrolytes are within normal range and has a BUN of 35 and a creatinine of 1.83. His nonfasting glucose is 302. He has a total bilirubin 1.0, AST 57 ALT 44 and alkaline phosphatase of 128. Has an elevated lactic acid of 3.5 with a negative procalcitonin at less than 0.05. His troponin is negative at less than 0.012. In the ER the patient was started on azithromycin and received 1 g of ceftriaxone. The patient is admitted to the medicine service for community- acquired pneumonia. Discharge Providers Provider Date of admission: 01/06/20 11:04 Discharge Date: 01/07/20 Primary care physician: Lakisha Dangelo MD Consults: 01/05/20 20:34 Consult to Dietitian, Adult Routine Comment: Reason For Exam: CAP, IDDM type 2 with hyperglycemia, obese, BMI 01/05/20 20:35 Consult to Discharge Planning Routine Comment: 01/05/20 21:03 Consult to Respiratory Therapy Evaluate & Treat Comment: Community-acquired pneumonia Physician Instructions: Evaluate and treat 01/06/20 04:46 Consult to Physical Therapy Evaluate & Treat Comment: Debilitated Physician Instructions: Evaluate and Treat Discharge provider: Rell Jenkins DO Summary Hospital Course Hospital Course: Mr. Marty Heard is an 83-year-old male with past medical history of insulin-dependent type 2 diabetes, hypothyroidism, chronic atrial fibrillation (long-term anticoagulation on warfarin), hypertension, CKD III, and chronic low back pain who was admitted with community-acquired pneumonia. 1. Community-acquired pneumonia, acute, present on admission, active. -chest x-ray showed mild or early retrocardiac left lower pneumonia which likely minimized in the setting dehydration. -white count of 6.8 without a shift, procalcitonin is 0.05. Lactic acid e levated at 3.5 on admission. now improved. -continued ceftriaxone 2 mg IV daily and azithromycin. Discharged on cefdinir and azithromycin once improved symptomatically. -appreciate respiratory therapy assistance with management. 2. Type 2 diabetes mellitus, insulin dependent with hyperglycemia, present on admission, -patient with an elevated glucose to 302 on admission, elevated glucose likely secondary to infective process, elevated creatinine consistent with CKD secondary to diabetic nephropathy at baseline. -elevated BUN, generalized weakness secondary dehydration from CAP and hyperglycemia on admission. -continued home regimen of Lantus twice daily. -fingerstick blood sugars a.c. and hs with medium scale correctional insulin. -constant carbohydrate/heart healthy diet resulted in good glucose control with the above therapies. -last hemoglobin A1c was 9.6 on 10/04/2019, increased to now 10.7 on admission. 3. Chronic Atrial fibrillation with controlled ventricular response, present on admission. -12 lead EKG showed atrial fibrillation with controlled rate of 91 with a right bundle branch block without ectopy ST or T-wave changes. No complaints of chest pain. -continued home regimen of metoprolol 12.5 mg twice daily and digoxin 0.125 mg daily. Dig level 0.5 on admission. -long-term anticoagulation on warfarin, with subtherapeutic INR at 1.6 on admission. Continue home dosing. 4. Chronic kidney disease, stage III, present on admission, stable -creatinine 1.83 on admission. Remained stable around apparent baseline. 5. Chronic low back pain, -continued home regimen of tramadol 100 mg by mouth 3 times daily as needed for pain 6. Hypothyroidism - continue home regimen of levothyroxine 50 mcg daily. 7. Orthostatic hypotension, chronic. - continue home midodrine. Exam Vital Signs (past 8 hours): - 01/07/20 04:40 01/07/20 07:00 01/07/20 07:45 Temperature 97.4 F L Pulse Rate 80 84 Pulse Rate [Orthostatic Lying] 78 Pulse Rate [Orthostatic Sitting] 84 Pulse Rate [Orthostatic Standing] 99 H Respiratory Rate 18 18 Blood Pressure 132/51 L Blood Pressure [Orthostatic Lying] 85/50 L Blood Pressure [Orthostatic Sitting] 94/51 L Blood Pressure [Orthostatic Standing] 114/67 Pulse Oximetry 100 100 01/07/20 08:00 01/07/20 11:51 Temperature 96.5 F L 97.3 F L Pulse Rate 78 81 Pulse Rate [Orthostatic Lying] Pulse Rate [Orthostatic Sitting] Pulse Rate [Orthostatic Standing] Respiratory Rate 15 15 Blood Pressure 85/50 L 114/63 Blood Pressure [Orthostatic Lying] Blood Pressure [Orthostatic Sitting] Blood Pressure [Orthostatic Standing] Pulse Oximetry 100 98 Oxygen Delivery Method Room Air Oxygen Flow Rate 0 Narrative Exam Narrative: GENERAL APPEARANCE: well developed, obese with a BMI of 33.7, in no acute distress. HEENT: Normocephalic, PERRLA, conjunctiva clear, EOMs intact without nystagmus, no sinus tenderness to percussion, no rhinorrhea, mucous membranes are moist and pink. NECK/THYROID: neck supple, no JVD, no thyromegaly, trachea midline. LYMPH NODES: no cervical or supraclavicular lymphadenopathy. SKIN: [place], warm and dry, scattered bruises bilateral upper extremities, venous stasis changes bilateral lower extremities with scabbed wounds bilateral anterior lower legs. HEART: regular rate and rhythm, S1-S2, no murmur appreciated, no rubs or gallops, brisk capillary refill, 2+ edema BLE LUNGS: Breath sounds diminished bilaterally, no coarseness crackles or wheezing, no cough present CHEST: Symmetrical movement, no accessory muscle use, fair tidal volume, improved conversational dyspnea. ABDOMEN: Soft, no distention, no abdominal tenderness, no guarding or peritoneal signs, no organomegaly, no flank or suprapubic tenderness, active bowel tones. EXTREMITIES: moves all extremities, BUE strength is 5/5, BLE strength 4/5 and symmetrical, no deformities or joint effusions. NEUROLOGIC: AAO x3, impaired memory, cranial nerves II-XII grossly intact, diminished sensation toes left foot hearing grossly normal to speech. PSYCH: cooperative, appropriate with stable behavior Objective Labs Result Diagrams: 01/07/20 05:40 01/07/20 05:40 Labs: Laboratory Results - last 24 hr 01/07/20 01/07/20 01/07/20 05:40 05:40 05:40 WBC 6.7 RBC 3.77 L Hgb 11.4 L Hct 34.2 L MCV 90.8 MCH 30.2 MCHC 33.2 RDW 14.2 Plt Count 185 Neut % (Auto) 60.5 Lymph % (Auto) 23.1 L [place] % (Auto) 9.5 Eos % (Auto) 6.0 H Baso % (Auto) 0.9 Neut # (Auto) 4100 Lymph # (Auto) 1600 [place] # (Auto) 600 Eos # (Auto) 400 Baso # (Auto) 100 PT 17.8 H INR 1.5 H Sodium 139 Potassium 4.6 Chloride 108 H Carbon Dioxide 29 BUN 27 H Creatinine 1.53 H Estimated GFR 43.6 L BUN/Creatinine Ratio 17.6 Glucose 111 H Calcium 8.6 Magnesium 2.0 Discharge Plan Discharge Plan Patient Disposition: Home Health Service Provider Discharge Comment: You were admitted to the hospital with pneumonia. You improved with antibiotics. Your glucose control is suboptimal, please follow up with your primary care provider for further titration. Discharge orders & Medications Prescriptions: New cefdinir 300 mg capsule 300 mg PO BID 5 Days Qty: 10 RF: 0 azithromycin 250 mg tablet 250 mg PO DAILY 5 Days Qty: 5 RF: 0 Continued tramadol 50 MG tablet 100 mg PO QID PRN (Reason: Pain (Scale Score 1-3)) Qty: 0 RF: 0 ferrous sulfate [Iron (ferrous sulfate)] 325 mg (65 mg iron) Tablet 325 mg PO DAILY RF: 0 midodrine 5 mg Tablet 5 mg PO 0600,1200,1800 Qty: 15 RF: 0 digoxin 125 mcg (0.125 mg) Tablet 0.125 mg PO DAILY Qty: 30 RF: 0 metoprolol tartrate 25 mg Tablet 12.5 mg PO BID Qty: 30 RF: 0 levothyroxine 50 mcg Tablet 50 mcg PO [id number] RF: 0 warfarin [Coumadin] 5 mg Tablet 5 mg PO BEDTIME RF: 0 warfarin 5 mg tablet 5 mg PO QPM RF: 0 docusate sodium 100 mg RF: 0 ferrous sulfate, dried 65 mg RF: 0 furosemide 80 mg Tablet RF: 0 Follow up/Referrals: Lakisha Dangelo MD [Primary Care Provider] - Diet/Activity/Treatments Diet: Diet as Tolerated and Carb-consistent/Diabetic Activity: As tolerated Visit Report/Discharge Packet Instructions: DI for Pneumonia -- Adult, Azithromycin, Cefdinir Visit Report Forms: Patient Portal/API, Stroke Signs & Symptoms Discharge Data Primary Care Provider: Lakisha Dangelo Discharges patient from system. Discharge Date/Time: 01/07/20 14:10 Quality VTE Deep Vein Thrombosis/Pulmonary Embolism Present on Admission: No
--- NOTE | 2020-01-07 13:22 | CM.DPC ---
DCP Discharge Home with HH Per MD, pt is medically stable and on room air and ready for d/c home with family today and HH and signed the F2F. Per PT, recommending safe d/c home with family assist and HH. SW met bedside with pt and MD during MDR and pt confirms that he feels his breathing is better and he got a good night sleep and has been ambulating well with walker but concerned about still napping and having difficulty being woken up. MD reviewing pt's meds and making changes prior to d/c. Pt confirms that his preference for HH is [facility] as he has worked with them before and agreeable to referral being made. SW faxed pt's clinical packet including F2F, MD orders, and discharge summary to [facility] to review for discharge home today and called and alerted them to new referral. Plan: Patient to d/c home today via family POV and new [facility] referral made. No further SW needs at this time. SILVERIO Vigil
--- NOTE | 2020-01-07 13:46 | PT.IPTN ---
Current Diagnoses Pneumonia, unspecified organism (01/06/20) Physical Therapy Treatment Note M2 PT-IP Current Condition Start: 01/06/20 14:02 Freq: NEEDED Status: Active Protocol: Document 01/06/20 10:48 AB (Rec: 01/06/20 14:21 AB [id number]) Physical Therapy Current Condition Current Condition Evaluation Date 01/06/20 Treatment Diagnosis PNA; generalized weakness Onset Date 01/05/20 M3 PT-IP Subjective Start: 01/06/20 14:02 Freq: NEEDED Status: Active Protocol: Document 01/07/20 13:38 AW (Rec: 01/07/20 13:46 AW [id number]) Subjective Physical Therapy Visit Type Type Treatment Note Visit Start Time 03:24 Visit Stop Time 13:37 Total Visit Minutes 13 Number of RIG MANAGER Visits 0 Physical Therapy Visit Comments Patient Comments pt is agreeable to do PT Therapy Pain Assessment Pain When Pain Assessed At Rest Pain Present Pain Present Denied Pain M4 PT-IP Mobility and Gait Start: 01/06/20 14:02 Freq: NEEDED Status: Active Protocol: Document 01/07/20 13:38 AW (Rec: 01/07/20 13:46 AW [id number]) PT-Transfer Assessment Sit to and From Stand Sit to and from Stand Standby Assistance,1 Person Assistance,Use of Upper Extremities Equipment Transfer Assistive Device Gait Belt,Front Wheeled Walker Orthotic/Prosthetic Devices or Brace: No Transfers Transfer Destination Bed,Chair Transfer Technique Stand Step Pivot Transfer Ability Level of Assist Standby Assistance,1 Person Assistance,Use of Upper Extremities Comments Mobility Comments Pt was exiting the washroom with nursing as PT entered the room. He ambulated with FWW SBA around the room and then out into the hallway for a total of 135 feet SBA. Pt denied SOB and RR was even if mildly labored. Pt returned to the room and transferred to the chair SBA. When asked how he would don his underwear at home, pt reported using a pickler helper stick. PT assisted pt to get briefs up to his knees . He then stood from the chair SBA using BUE to push off. He pulled up his briefs SBA and returned to sitting, using BUE appropriately to control descent. Pt was left with call light within reach. PT notified [employer] BINDING [employer]TER AND REPAIRER that pt was ready to dress for discharge. Gait Assessment Gait Gait Assistance Required: Standby Assistance Distance (Feet) 135 Able to Maintain Weight Bearing Status Yes During Gait Assistive Devices Assistive Device Gait Belt,Front Wheeled Walker Orthotic/Prosthetic Devices or Brace: No Gait Deviations General Gait Pattern Antalgic,Decreased Stride Length,Decreased Feet Clearance,Step-to Gait Factors Limiting Gait Function Factors Limiting Gait Function Decreased Activity Tolerance, Decreased Strength,Poor Balance,Poor Safety Awareness Comments Gait Comments See mobility comments. Pt agrees with recommendation to use FWW at home. Stair Climbing Assessment Comments Stair Climbing Comments Not assessed. Pt's entrances are ramped. PT-Balance Assessment Sitting Balance and Reactions Static Sitting Balance Ability Good Dynamic Sitting Balance Ability Good Standing Balance and Reactions Static Standing Balance Ability Good Dynamic Standing Balance Ability Fair Device Used FWW M5 PT-IP Objective Assessments Start: 01/06/20 14:02 Freq: NEEDED Status: Active Protocol: Document 01/06/20 10:48 AB (Rec: 01/06/20 14:21 AB [id number]) Orientation Orientation/Cognition Level of Alertness Alert Orientation Name,Place,Situation Language Function Ability Hard of Hearing Safety Awareness Decreased Safety Awareness Gross Range of Motion Lower Extremity ROM Assessment Within Functional Limits Strength Lower Extremity Strength Assessment Bilaterally Impaired Hip 4-/5 Knee 4-/5 Ankle 4-/5 Muscle Tone Muscle Tone WNL Yes M6 PT-IP Treatment Start: 01/06/20 14:02 Freq: NEEDED Status: Active Protocol: Document 01/07/20 13:38 AW (Rec: 01/07/20 13:46 AW [id number]) Physical Therapy Treatment Education Education Provided Safety M7 PT-IP Assessment and Plan Start: 01/06/20 14:02 Freq: NEEDED Status: Active Protocol: Document 01/07/20 13:38 AW (Rec: 01/07/20 13:46 AW [id number]) PT Summary Assessment and Plan Potential Rehabilitation Potential Good Status of Condition at Evaluation Stable Summary Impairments Pain,ROM,Strength,Balance, Coordination,Sensation,Bed Mobility,Transfers,Gait, Activity Tolerance Progress Towards Goals Progressing Toward Goals Assessment Summary Pt requires SBA for transfers and ambulation with FWW this date. He progressed gait distance with FWW without need for rest break. Pt will need to continue with homehealth services upon d/c, to include PT Goals Bed Mobility Goal Independent Transfer Goal Independent Gait Goal Independent,Front Wheel Walker ,Four Wheel Walker Gait Distance 125 Other Goals up/down 2 steps B rails SBA improve ambulation using SPC 100 ft SBA Days to Meet Goals 5 Frequency of Treatment Frequency Of Treatment Once a Day Treatment Plan Physical Therapy Treatment Plan Bed Mobility Training,Transfer Training,Gait Training, Therapeutic Exercise,Balance Retraining,Discharge Planning, Neuromuscular Re-ed, Coordination Retraining Recommendations To Nursing Amount of Assist Needed 1 Person Assist Discharge Recommendations PT Discharge Recommendations Home with Assistance,Home Health Transportation Needs at Discharge Private Vehicle
--- NOTE | 2020-01-07 14:11 | PC.NURSE ---
Assumed care of patient at 0700. Patient is pleasant, A/Ox4, denies SOB, on RA, lungs clear. NS @ 75cc/hr infusing in LUE, AC. Patient on tele, pulses equal bilaterally, irregularly irregular. 3+ LE edema noted bilaterally. Patient ambulating to restroom with 1 p assist and FWW, slightly dizzy (per patient) upon rising to ambulate. Instructed patient to go slowly and remain sitting until dizziness has passed. Bed alarm and chair alarm on. Patient is eating and drinking independently. Medications retrieved from pharmacy prior to discharge. Patient has dentures and glasses. Denies having anything in the safe. IV's removed, patient tolerated. Education given to both patient and son, Jason. Patient to continue antibiotics at home. Son and patient verbalized understanding. Patient departed via wheelchair.
== END 2020-01-07 14:10 | disposition home or self-care (01) | DRG 194 ==
LOC: ED 20:14 → AC 20:55
PROVIDERS: Internal Medicine; Admitting Provider Nurse Practitioner Adult Health; Emergency Provider Emergency Medicine; PCP Internal Medicine; Referring Provider Emergency Medicine; Visit Provider Nurse Practitioner Adult Health
DX: J18.9 Pneumonia, unspecified organism (principal); I48.20 Chronic atrial fibrillation, unspecified; E11.22 Type 2 diabetes mellitus with diabetic chronic kidney disease; I12.9 Hypertensive chronic kidney disease with stage 1 through stage 4 chronic kidney disease, or unspecified chronic kidney disease; N18.30 Chronic kidney disease, stage 3 unspecified; E11.65 Type 2 diabetes mellitus with hyperglycemia; E86.0 Dehydration; I95.1 Orthostatic hypotension; Z79.01 Long term (current) use of anticoagulants; E03.9 Hypothyroidism, unspecified; G89.29 Other chronic pain; Z85.46 Personal history of malignant neoplasm of prostate; Z85.828 Personal history of other malignant neoplasm of skin; Z79.4 Long term (current) use of insulin; Z11.59 Encounter for screening for other viral diseases
CPT/HCPCS: 36415; 71045; 80048; 80053; 80162; 81003; 81015; 82962; 83036; 83605; 83735; 84145; 84484; 85025; 85610; 85730; 87040; 87086; 87633; 87635; 93005; 93010; 94760; 94762; 96365; 96367; 97116; 97161; 99284; G0378; J0696; J1650

== ENCOUNTER → 2020-01-09 20:18 | Outpatient (ROUT) | payer OTHER, SELFPAY ==
[2020-01-05 22:51] VITALS: BMI 33.7
[2020-01-09 22:09] LABS: BUN Creatinine Ratio 16.8 (6-22); Blood Urea Nitrogen 25 mg/dL (9-20); Calcium 8.5 mg/dL (8.4-10.2); Carbon Dioxide 30 mmol/L (22-32); Chloride 105 mmol/L (98-107); Estimated Glomerular Filt Rate 44.9 mL/min (>60); Glucose 162 mg/dL (80-110); HEMOLYSIS < 15 (0-50); Potassium 4.6 mmol/L (3.4-5.1); Sodium 139 mmol/L (137-145)
[2020-01-09 22:57] LABS: Vitamin B12 243 pg/mL (239-931)
== END ==
PROVIDERS: PCP Internal Medicine; Visit Provider Internal Medicine
DX: E11.21 Type 2 diabetes mellitus with diabetic nephropathy (principal); E87.5 Hyperkalemia; E53.8 Deficiency of other specified B group vitamins
CPT/HCPCS: 80048; 82607

== ENCOUNTER → 2020-01-30 10:59 | Outpatient (CLI) | payer OTHER, SELFPAY ==
[2020-01-05 22:51] VITALS: BMI 33.7
--- NOTE | 2020-01-30 | DI.RAD.S_ITS ---
PROCEDURE: XR CHEST 2V INDICATIONS: FOLLOW UP PNEUMONIA TECHNIQUE: 2 views of the chest were acquired. COMPARISON: [facility], CR, XR CHEST 1V, 01/05/2020, 19:25. [facility], CR, XR CHEST 1V, 09/09/2019, 15:59. FINDINGS: Surgical changes and devices: None. Lungs and pleura: Lungs are clear. No pleural effusions or pneumothorax. Mediastinum: Mediastinal contours are normal. Heart size is normal. Bones and chest wall: No suspicious bony abnormalities. Soft tissues appear unremarkable. IMPRESSION: Normal for age, source of prior pneumonia symptoms is not seen. Dictated by: Riki Navarro M.D. on 01/30/2020 at 12:29 Approved by: Riki Navarro M.D. on 01/30/2020 at 12:30
== END ==
PROVIDERS: PCP Internal Medicine; Referring Provider Internal Medicine; Visit Provider Internal Medicine
DX: J18.9 Pneumonia, unspecified organism (principal)
CPT/HCPCS: 71046

== ENCOUNTER → 2020-02-06 09:42 | Outpatient (CLI) | payer OTHER, SELFPAY ==
[2020-02-06 11:42] LABS: Vitamin B12 > 1000 pg/mL (239-931)
== END ==
PROVIDERS: PCP Internal Medicine; Referring Provider Internal Medicine; Visit Provider Internal Medicine
DX: E53.8 Deficiency of other specified B group vitamins (principal)
CPT/HCPCS: 36415; 82607

== ENCOUNTER 2020-02-23 19:58 | Emergency (ER) | payer OTHER, SELFPAY ==
[2020-02-23 20:02] VITALS: BP 112/80; PULSE 94; RESP 20; TEMP 36.5; O2SAT 97; BMI 35.2
--- NOTE | 2020-02-23 21:10 | PC.NURSE ---
Patient requested to remain in wheelchair and not transfer onto bed. Given blanket across lap, diet soda, and call light within reach.
--- NOTE | 2020-02-23 21:52 | ED.MEDCLEAR ---
HPI - Medical Clearance General Chief complaint: Medical Clearance Stated complaint: fighting with significant other, wants mental eval Time Seen by Provider: 02/23/20 21:43 Source: patient Mode of arrival: Wheelchair History of Present Illness HPI Narrative: Patient brought here by his son. I received phone call from Dr. Dangelo, his provider. She informs me that patient was dropped off at her office this evening by the son and the son left. Patient was there this afternoon for blood draw follow-up for INR elevation that was noted 2 days ago. Patient is on warfarin. Patient denies any recent illness cough cold congestion fever chills. No bloody stools black stools. No vomiting blood. Denies any pain anywhere. Denies any hallucinations. Patient is awake alert oriented x4. Is cooperative not combative. Is not altered. Denies being hurt by his . Physically. has severe dementia and because combative many times. Yesterday a friend came over to help with [employer] decorations and the did not want her there and removed her. Patient states that the son does not want him at the home to agitate his mother. Police were called at the doctor's office and plan of action was either to have patient stay at son's house or son to stay at patient's house with his . Patient states he has called his son to pick him up. He does desire blood draw that he was supposed to have done at the office today. Denies any chest pain back pain. No dyspnea. He just wants to go back home. MD complaint: medical clearance requested Related Information Home Medications Medication Instructions Recorded Confirmed tramadol 100 mg PO QID PRN #0 02/03/16 01/06/20 levothyroxine 50 mcg PO MOTUWETHFRSA 09/16/17 01/06/20 warfarin [Coumadin] 5 mg PO BEDTIME 07/20/18 01/06/20 ferrous sulfate [Iron (ferrous 325 mg PO DAILY 07/11/19 01/06/20 sulfate)] warfarin 5 mg PO QPM 01/05/20 01/05/20 docusate sodium 01/06/20 ferrous sulfate, dried 01/06/20 furosemide 01/06/20 Previous Rx's Medication Instructions Recorded digoxin 0.125 mg PO DAILY #30 tab 10/01/19 metoprolol tartrate 12.5 mg PO BID #30 tab 10/01/19 midodrine 5 mg PO 0600,1200,1800 #15 tab 10/01/19 Allergies Allergy/AdvReac Type Severity Reaction Status Date / Time Penicillins Allergy Unknown Verified 02/23/20 20:19 Review of Systems Review of Systems Narrative: GENERAL: Denies chills, fatigue, malaise, fever, sweats. HEENT: Denies sinus pain, ear pain, sore throat, difficulty swallowing RESPIRATORY: Denies dyspnea, cough CARDIOVASCULAR: Denies chest pain, palpitations, edema, GASTROINTESTINAL: Denies nausea, vomiting, abdominal pain, diarrhea, constipation, melena. : Denies dysuria, frequency, hematuria MUSCULOSKELETAL: denies muscle or bony pain SKIN: Denies rash, skin lesions NEUROLOGIC: Denies weakness, headache, numbness, change in speech, confusion PSYCHIATRIC: No SI or HI or hallucinations slightly anxious and tearful. ROS Unobtainable: All systems reviewed & are unremarkable except as noted in HPI and below Patient History Medical History Cancer of left ear Chronic atrial fibrillation with RVR Diabetes E coli infection Hernia of abdominal cavity Hypothyroidism Inguinal hernia bilateral, non-recurrent Melanoma Prostate cancer Right eye injury Surgical History History of throat surgery History of transurethral resection of prostate Status post bilateral hernia repair Social History household members: spouse and children Smoking Status: Never smoker alcohol intake: never Smoking Status: Never smoker alcohol intake frequency: other Substance Use Type: does not use Exam Narrative Exam Narrative: GENERAL: patient appears stated age. Well-nourished, well-developed patient, in no distress, not toxic not dyspneic HEAD: Normocephalic. EYES: Pupils equal round and reactive. No scleral icterus. No injection no discharge ENT: Mucous membranes moist. No drooling no tongue elevation no trismus no malocclusion NECK: Trachea midline. Non tender CARDIOVASCULAR: Regular rate and rhythm without murmurs, gallops, or rubs. RESPIRATORY: Clear to auscultation. Breath sounds equal bilaterally. No wheezes, rales, or rhonchi. GASTROINTESTINAL: Abdomen soft, non-tender, nondistended. EXTREMITIES: No gross deformities. BACK: Nontender without deformity or crepitance. No flank tenderness. NEURO: AOx4. SKIN: Warm and dry PSYCH: Slightly anxious, is cooperative, no SI or HI. Not combative. Initial Vital Signs Initial Vital Signs: Vital Signs Temperature 97.7 F 02/23/20 20:02 Pulse Rate 94 H 02/23/20 20:02 Respiratory Rate 20 02/23/20 20:02 Blood Pressure 112/80 02/23/20 20:02 Pulse Oximetry 97 02/23/20 20:02 MDM - Medical Clearance Differential Diagnosis Differential diagnosis: Likely other (Patient here for medical screening evaluation as requested by family physician.) Lab Data Attestation: I reviewed the patient's lab results. Result diagrams: 02/23/20 22:00 02/23/20 22:00 Labs: Lab Results 02/23/20 02/23/20 02/23/20 Range/Units 22:00 22:00 22:00 WBC 7.5 (4.5-11.0) X10^3/uL RBC 4.35 L (4.5-5.9) X10^6/uL Hgb 13.0 L (13.5-17.5) g/dL Hct 38.8 L (41-53) % MCV 89.3 (80-100) fL MCH 30.0 (26-34) PG MCHC 33.6 (30-36) % RDW 13.7 (11.6-14.8) % Plt Count 184 (150-400) X10^3/uL Neut % (Auto) 74.6 (50-75) % Lymph % (Auto) 16.8 L (25-40) % [place] % (Auto) 6.7 (3-14) % Eos % (Auto) 1.2 L (2-4) % Baso % (Auto) 0.7 (0-2) % Neut # (Auto) 5600 (0315-2186) /uL Lymph # (Auto) 1300 (3770-7537) /uL [place] # (Auto) 500 (0-900) /uL Eos # (Auto) 100 (0-450) /uL Baso # (Auto) 0 (0-100) /uL PT 30.0 H (10.1-12.7) SECONDS INR 2.6 H (0.9-1.3) APTT 41 H (26.4-36.2) SECONDS Sodium 136 L (137-145) mmol/L Potassium 4.5 (3.4-5.1) mmol/L Chloride 102 (98-107) mmol/L Carbon Dioxide 31 (22-32) mmol/L BUN 32 H (9-20) mg/dL Creatinine 1.81 H (0.66-1.25) mg/dL Estimated GFR 35.9 L (>60) mL/min BUN/Creatinine Ratio 17.7 (6-22) Glucose 457 H (80-110) mg/dL Calcium 8.9 (8.4-10.2) mg/dL Total Bilirubin 1.1 (0.2-1.3) mg/dL AST 63 H (17-59) IU/L ALT 65 H (<50) IU/L Alkaline Phosphatase 142 H (38-126) U/L Total Protein 7.4 (6.3-8.2) g/dL Albumin 3.9 (3.5-5.0) g/dL Globulin 3.5 (1.7-4.1) g/dL Albumin/Globulin Ratio 1.1 (1.0-2.8) MDM Narrative Medical decision making narrative: I did speak with primary care doctor read prior to patient's arrival. Patient will likely be discharged home but he had medical screening and social evaluation at home setting. She has tried from the office setting without success to get patient back home or to son's house. No imaging indicated this time. No trauma or injury. Patient does need blood work that out with was be done in the office today. Patient does not want any insulin given here. He states he has plenty at home and will take gets home. Son at bedside at this time. 10:35 p.m.. Son will be staying with patient and his mother tonisabela. No new issues. Discharge Plan Departure Patient Disposition: Home Clinical Impression: Hyperglycemia, Encounter for medical screening examination Activity Restrictions/Additional Instructions: Be sure to take your insulin sliding scale for the measured high glucose here. Take it when you get home. See family doctor within a week for recheck. Return if worse or if any questions or concerns. Prescriptions: No Action tramadol 50 MG tablet 100 mg PO QID PRN (Reason: Pain (Scale Score 1-3)) Qty: 0 RF: 0 ferrous sulfate [Iron (ferrous sulfate)] 325 mg (65 mg iron) Tablet 325 mg PO DAILY RF: 0 midodrine 5 mg Tablet 5 mg PO 0600,1200,1800 Qty: 15 RF: 0 digoxin 125 mcg (0.125 mg) Tablet 0.125 mg PO DAILY Qty: 30 RF: 0 metoprolol tartrate 25 mg Tablet 12.5 mg PO BID Qty: 30 RF: 0 levothyroxine 50 mcg Tablet 50 mcg PO MOTUWETHFRSA RF: 0 warfarin [Coumadin] 5 mg Tablet 5 mg PO BEDTIME RF: 0 warfarin 5 mg tablet 5 mg PO QPM RF: 0 docusate sodium 100 mg RF: 0 ferrous sulfate, dried 65 mg RF: 0 furosemide 80 mg Tablet RF: 0 Referrals: Lakisha Dangelo MD [Primary Care Provider] -
[2020-02-23 22:07] LABS: Add Manual Diff / Slide Review NO; Basophils Absolute Auto 0 /uL (0-100); Basophils Percent Auto 0.7 % (0-2); Eosinophils Absolute Auto 100 /uL (0-450); Eosinophils Percent Auto 1.2 % (2-4); Hematocrit 38.8 % (41-53); Lymphocytes Absolute Auto 1300 /uL (1100-4500); Lymphocytes Percent Auto 16.8 % (25-40); Mean Corpuscular HGB Conc 33.6 % (30-36); Mean Corpuscular Volume 89.3 fL (80-100); Monocytes Absolute Auto 500 /uL (0-900); Monocytes Percent Auto 6.7 % (3-14); Neutrophils Absolute Auto 5600 /uL (1500-7000); Neutrophils Percent Auto 74.6 % (50-75); Platelet Count 184 X10^3/uL (150-400); Red Blood Cell Count 4.35 X10^6/uL (4.5-5.9); Red Cell Distribution Width 13.7 % (11.6-14.8); White Blood Cell Count 7.5 X10^3/uL (4.5-11.0)
[2020-02-23 22:17] LABS: INR 2.6 (0.9-1.3)
[2020-02-23 22:20] LABS: PTT Partial Thromboplastin Tim 41 SECONDS (26.4-36.2)
[2020-02-23 22:22] LABS: Alanine Aminotransferase 65 IU/L (<50); Albumin 3.9 g/dL (3.5-5.0); Albumin Globulin Ratio 1.1 (1.0-2.8); Alkaline Phosphatase 142 U/L (38-126); Aspartate Aminotransferase 63 IU/L (17-59); BUN Creatinine Ratio 17.7 (6-22); Bilirubin Total 1.1 mg/dL (0.2-1.3); Blood Urea Nitrogen 32 mg/dL (9-20); Calcium 8.9 mg/dL (8.4-10.2); Carbon Dioxide 31 mmol/L (22-32); Chloride 102 mmol/L (98-107); Estimated Glomerular Filt Rate 35.9 mL/min (>60); Globulin 3.5 g/dL (1.7-4.1); Glucose 457 mg/dL (80-110); HEMOLYSIS 26 (0-50); Potassium 4.5 mmol/L (3.4-5.1); Sodium 136 mmol/L (137-145); Total Protein 7.4 g/dL (6.3-8.2)
[2020-02-23 22:40] VITALS: PULSE 86; RESP 16; O2SAT 97
== END 2020-02-23 22:40 | disposition home or self-care (01) ==
PROVIDERS: Emergency Provider Emergency Medicine; PCP Internal Medicine
DX: E11.65 Type 2 diabetes mellitus with hyperglycemia (principal); I48.20 Chronic atrial fibrillation, unspecified; Z79.01 Long term (current) use of anticoagulants
CPT/HCPCS: 36415; 80053; 85025; 85610; 85730; 99283

== ENCOUNTER → 2020-03-06 09:50 | Outpatient (CLI) | payer OTHER, SELFPAY ==
[2020-03-06 10:43] LABS: Add Manual Diff / Slide Review NO; Basophils Absolute Auto 0 /uL (0-100); Basophils Percent Auto 0.7 % (0-2); Eosinophils Absolute Auto 200 /uL (0-450); Eosinophils Percent Auto 2.5 % (2-4); Hematocrit 34.2 % (41-53); Hemoglobin 11.7 g/dL (13.5-17.5); Lymphocytes Absolute Auto 1100 /uL (1100-4500); Lymphocytes Percent Auto 16.9 % (25-40); Mean Corpuscular HGB Conc 34.3 % (30-36); Mean Corpuscular Hemoglobin 30.6 PG (26-34); Monocytes Absolute Auto 400 /uL (0-900); Neutrophils Absolute Auto 5000 /uL (1500-7000); Neutrophils Percent Auto 73.9 % (50-75); Platelet Count 180 X10^3/uL (150-400); Red Blood Cell Count 3.84 X10^6/uL (4.5-5.9); Red Cell Distribution Width 14.1 % (11.6-14.8); White Blood Cell Count 6.8 X10^3/uL (4.5-11.0)
[2020-03-06 11:02] LABS: BUN Creatinine Ratio 15.4 (6-22); Blood Urea Nitrogen 27 mg/dL (9-20); Calcium 8.4 mg/dL (8.4-10.2); Carbon Dioxide 33 mmol/L (22-32); Chloride 101 mmol/L (98-107); Estimated Glomerular Filt Rate 37.3 mL/min (>60); Glucose 302 mg/dL (80-110); HEMOLYSIS < 15 (0-50); NT-proBNP (BNP-Adult 18+) 3570 pg/mL (<450); Potassium 4.2 mmol/L (3.4-5.1); Sodium 137 mmol/L (137-145)
[2020-03-06 11:11] LABS: Digoxin 0.9 ng/mL (0.8-2.0)
== END ==
PROVIDERS: PCP Internal Medicine; Referring Provider Internal Medicine; Visit Provider Internal Medicine
DX: D64.9 Anemia, unspecified (principal); I27.20 Pulmonary hypertension, unspecified; I48.91 Unspecified atrial fibrillation
CPT/HCPCS: 36415; 80048; 80162; 83880; 85025

== ENCOUNTER → 2020-03-06 15:50 | Outpatient (CLI) | payer OTHER, SELFPAY ==
--- NOTE | 2020-03-06 15:51 | DI.ECHO.S_ITS ---
[place] [facility]---------+ [facility] +---------+ : : [address] : : : : [id number] : : : : Phone: [phone] Echocardiogram Report + + :Name: MADDISON ANTONIO Study Date: 03/06/2020 Height: 72 in : :[facility] Weight: 251 lb : : Gender: Male BSA: 2.3 m2 : :: 1935 Age: 84 yrs BP: 129/81 mmHg: :Reason For Study: PULMONARY HYPERTENSION : :Ordering Physician: ALONA GRUBBS : :L Performed By: Rosalia Fuentes : :Referring: ALONA GRUBBS L : + + Interpretation Summary The ejection fraction is estimated to be 60-65%. There is mild mitral regurgitation. There is mild to moderate tricuspid regurgitation. The right ventricular systolic pressure is estimated to be at least 41 mmHg based on an estimated right atrial pressure of 8 mm Hg. Compared to the prior echo exam, there has been an increase in TR severity. Procedure: A two-dimensional transthoracic echocardiogram with color flow and Doppler was performed. The study quality was technically adequate. Comparison is made with the echocardiogram of 07/12/2019. The patient was in atrial fibrillation with heart rates between 64-80 bpm during the exam. Left Ventricle: The left ventricle is normal in size and wall thickness. The ejection fraction is estimated to be 60-65%. Left ventricular wall motion is normal. Diastolic function could not be accurately assessed due to atrial fibrillation. Right Ventricle: The right ventricle is normal in size and function. Atria: The left atrium is moderately dilated. The right atrium is moderately dilated. There is no Doppler evidence for an interatrial shunt. Mitral Valve: The mitral valve leaflets appear mildly thickened, but open well. There is mild mitral annular calcification. There is mild mitral regurgitation. Aortic Valve: The aortic valve is trileaflet. The aortic valve opens well. There is no aortic valve stenosis. No aortic regurgitation is present. Tricuspid Valve: The tricuspid valve is normal in structure and function. The right ventricular systolic pressure is estimated to be at least 41 mmHg based on an estimated right atrial pressure of 8 mm Hg. There is mild to moderate tricuspid regurgitation. Compared to the prior echo exam, there has been an increase in TR severity. Pulmonic Valve: The pulmonic valve is not well seen, but is grossly normal. There is no pulmonic valvular regurgitation. Great Vessels: The aortic root is normal size. The ascending aorta is mildly enlarged. The IVC is of normal diameter and collapses less than 50% with a sniff. This suggests a right atrial pressure of 8 mm Hg. Pericardium/ Pleura There is no pericardial effusion. There is no pleural effusion. MMode/2D Measurements & Calculations LVIDd: 4.7 cm LVOT diam: 2.2 cm LVIDs: 3.1 cm Ao root diam: 3.5 cm FS: 33.9 % asc Aorta Diam: 3.7 cm EPSS: 0.48 cm Ao Arch Diam (Prox Trans): 3.1 cm IVSd: 0.77 cm LVPWd: 0.83 cm LV sainz. diameter/BSA (cm/m^2): 2.0 LV sys. diameter/BSA (cm/m^2): 1.3 LA A2 area: 28.7 cm2 RA long axis: 6.0 cm LA A4 area: 25.6 cm2 RA area: 27.8 cm2 LA length (vol): 6.3 cm RA vol: 110.1 ml LA vol: 99.2 ml RA : 46.9 ml/m2 LA vol index: 42.3 ml/m2 IVC diam: 2.0 cm RVD1 (basal): 3.9 cm TAPSE: 2.1 cm Doppler Measurements & Calculations Ao V2 max: 129.7 cm/sec LVOT Max Walter: 61.8 cm/sec Ao V2 mean: 93.9 cm/sec LV V1 max P.5 mmHg Ao max P.7 mmHg LV V1 VTI: 12.6 cm Ao mean P.0 mmHg KM(I,D): 1.9 cm2 Ao V2 VTI: 25.4 cm KM(V,D): 1.8 cm2 sev ratio: 0.50 KM indexed to BSA (cm^2/m^2): 0.80 MV E max walter: 100.1 cm/sec TR max walter: 288.1 cm/sec MV A max walter: 0.80 cm/sec TR max P.2 mmHg MV E/A: 125.9 PA V2 max: 69.5 cm/sec Med Peak E' Walter: 8.3 cm/sec PA V2 mean: 46.9 cm/sec E/E' med: 12.1 PA mean P.0 mmHg Lat Peak E' Walter: 7.9 cm/sec PA pr(Accel): 24.2 mmHg E/E' lat: 12.7 E/e' average: 12.4 MV dec time: 0.21 sec SV(LVOT): 47.7 ml Reading Physician:10:16 AM
== END ==
PROVIDERS: PCP Internal Medicine; Referring Provider Internal Medicine; Visit Provider Internal Medicine
DX: I08.1 Rheumatic disorders of both mitral and tricuspid valves (principal); I27.20 Pulmonary hypertension, unspecified; I77.89 Other specified disorders of arteries and arterioles; D64.9 Anemia, unspecified; I48.91 Unspecified atrial fibrillation
CPT/HCPCS: 36415; 80048; 80162; 83880; 85025; 93306

== ENCOUNTER 2020-05-14 21:47 | Emergency (ER) | payer OTHER, SELFPAY ==
[2020-05-14 21:57] VITALS: BP 155/77; PULSE 86; RESP 20; TEMP 36.6; O2SAT 100
--- NOTE | 2020-05-14 22:12 | DI.RAD.S_ITS ---
PROCEDURE: XR CHEST 1V INDICATIONS: weakness TECHNIQUE: One view of the chest was acquired. COMPARISON: [facility], CR, XR CHEST 2V, 01/30/2020, 11:17. [facility], CR, XR CHEST 1V, 01/05/2020, 19:25. FINDINGS: Surgical changes and devices: None. Lungs and pleura: Lungs are clear. No pleural effusions or pneumothorax. Mediastinum: Mediastinal contours appear normal. Heart size is normal. Bones and chest wall: No suspicious bony lesions. Overlying soft tissues appear unremarkable. IMPRESSION: Reduced inspiratory volume, which crowds the bronchovascular markings but source of weakness is not seen. Dictated by: Riki Navarro M.D. on 05/15/2020 at 9:27 Approved by: Riki Navarro M.D. on 05/15/2020 at 9:45
[2020-05-14 23:53] LABS: COVID19 -Nasal RAPID Negative (Negative)
[2020-05-15 00:15] LABS: Add Manual Diff / Slide Review NO; Basophils Absolute Auto 100 /uL (0-100); Basophils Percent Auto 1.9 % (0-2); Eosinophils Absolute Auto 100 /uL (0-450); Eosinophils Percent Auto 1.8 % (2-4); Hematocrit 33.6 % (41-53); Hemoglobin 11.3 g/dL (13.5-17.5); Lymphocytes Absolute Auto 1300 /uL (1100-4500); Lymphocytes Percent Auto 19.2 % (25-40); Mean Corpuscular HGB Conc 33.6 % (30-36); Mean Corpuscular Hemoglobin 29.8 PG (26-34); Mean Corpuscular Volume 88.8 fL (80-100); Monocytes Absolute Auto 500 /uL (0-900); Monocytes Percent Auto 6.7 % (3-14); Neutrophils Absolute Auto 4900 /uL (1500-7000); Neutrophils Percent Auto 70.4 % (50-75); Platelet Count 173 X10^3/uL (150-400); Red Blood Cell Count 3.78 X10^6/uL (4.5-5.9); Red Cell Distribution Width 14.8 % (11.6-14.8)
[2020-05-15] MEDS: SODIUM CHLORIDE 0.9% 1,000 ML 1000 ML IV (00:15)
[2020-05-15 00:17] LABS: INR 1.5 (0.9-1.3); Prothrombin Time 17.2 SECONDS (10.1-12.7)
[2020-05-15 00:19] LABS: PTT Partial Thromboplastin Tim 31 SECONDS (26.4-36.2)
[2020-05-15 00:22] LABS: Alanine Aminotransferase 25 IU/L (<50); Albumin 3.7 g/dL (3.5-5.0); Albumin Globulin Ratio 1.2 (1.0-2.8); Alkaline Phosphatase 101 U/L (38-126); Aspartate Aminotransferase 48 IU/L (17-59); BUN Creatinine Ratio 19.9 (6-22); Bilirubin Total 0.6 mg/dL (0.2-1.3); Blood Urea Nitrogen 30 mg/dL (9-20); Carbon Dioxide 26 mmol/L (22-32); Chloride 110 mmol/L (98-107); Estimated Glomerular Filt Rate 44.2 mL/min (>60); Glucose 143 mg/dL (80-110); HEMOLYSIS 27 (0-50); Lipase 149 U/L (23-300); Potassium 4.5 mmol/L (3.4-5.1); Sodium 139 mmol/L (137-145); Total Protein 6.7 g/dL (6.3-8.2)
[2020-05-15 00:24] LABS: Lactate (Lactic Acid) 1.3 mmol/L (0.7-2.1)
[2020-05-15 00:42] LABS: Troponin I < 0.012 ng/mL (0.01-0.034)
[2020-05-15] MEDS: DOXYCYCLINE HYCLATE 100 MG TABLET PO (01:10)
[2020-05-15 01:29] VITALS: BP 151/77; PULSE 73; RESP 22; TEMP 36.5; O2SAT 96
--- NOTE | 2020-05-15 04:41 | ED_ITS ---
HPI - General Adult General Chief complaint: Weakness Stated complaint: chills, hx of pneumonia Time Seen by Provider: 05/15/20 00:31 Source: patient Mode of arrival: Wheelchair Limitations: no limitations History of Present Illness HPI narrative: This is an 84-year-old male comes to the emergency department with symptoms of chills and shakes earlier this evening. Patient states he developed some tingling his bilateral lower extremities. He states this all started after 1700. Patient denies any chest pain, no shortness of breath. He has had a mild cough in the mornings and states this has been for several days. He denies any nasal congestion or other cold symptoms. He denies any lightheadedness for syncope. Patient states he has had decreased energy. He denies any nausea or vomiting recently. He had 1 episode a week ago. He states that was after taking all of his home medications at once rather than splitting them up throughout the day. He denies any abdominal pain. He had a large bowel movement 2 days ago which he states was soft. He had no bright red blood or melena. He denies any urinary issues. He denies any new swelling in his extremities. He states he had pneumonia approximately a month ago and that this seems similar. He had improved after antibiotics and felt significantly better until today. He states he is on warfarin for atrial fibrillation he has type 2 diabetes, hypertension and dyslipidemia. He has a remote history of prostate cancer. Patient does state he has have some significant social stressors including his suddenly leaving the home 2 days prior, from his description it sounds like there were domestic violence charges pressed against the patient and that her exit from the home was initiated by his son possibly. He states there was also concern for some kind of financial scam although he is unclear if perhaps money that is been leaving his accounts may be secondary to his leaving their current living situation. But he also states that he has had some irregular activity with his financial accounts and relates this to [employer]. Related Data Home Medications Medication Instructions Recorded Confirmed tramadol 100 mg PO QID PRN #0 02/03/16 01/06/20 levothyroxine 50 mcg PO MOTUWETHFRSA 09/16/17 01/06/20 warfarin [Coumadin] 5 mg PO BEDTIME 07/20/18 01/06/20 ferrous sulfate [Iron (ferrous 325 mg PO DAILY 07/11/19 01/06/20 sulfate)] warfarin 5 mg PO QPM 01/05/20 01/05/20 docusate sodium 01/06/20 ferrous sulfate, dried 01/06/20 furosemide 01/06/20 Previous Rx's Medication Instructions Recorded digoxin 0.125 mg PO DAILY #30 tab 10/01/19 metoprolol tartrate 12.5 mg PO BID #30 tab 10/01/19 midodrine 5 mg PO 0600,1200,1800 #15 tab 10/01/19 doxycycline hyclate 100 mg PO BID #20 tab 05/15/20 Allergies Allergy/AdvReac Type Severity Reaction Status Date / Time Penicillins Allergy Unknown Verified 02/23/20 20:19 Review of Systems Review of Systems ROS Unobtainable: All systems reviewed & are unremarkable except as noted in HPI and below Patient History Medical History Cancer of left ear Chronic atrial fibrillation with RVR Diabetes E coli infection Hernia of abdominal cavity Hypothyroidism Inguinal hernia bilateral, non-recurrent Melanoma Prostate cancer Right eye injury Surgical History History of throat surgery History of transurethral resection of prostate Status post bilateral hernia repair Social History household members: spouse and children Smoking Status: Never smoker alcohol intake: never Smoking Status: Never smoker alcohol intake frequency: other Substance Use Type: does not use Exam Narrative Exam Narrative: GEN: well nourished, well appearing elderly male, alert and oriented, patient appears to be in mild distress. HEENT: Atraumatic, pupils are equal round reactive to light, extraocular movements are intact, nares are clear. HEART: Regular rate and rhythm without murmur, clicks, rubs. LUNGS:Lungs clear to auscultation, no wheezes, rales, mild crackles bilaterally, chest moves symmetrically, no tachypnea. No accessory muscle use. ABD:bowel sounds normal, soft, non-tender, no guarding, rebound, rigidity, no masses noted, no hepatosplenomegaly :No CVA tenderness, MSCL: Non-tender, no muscle atrophy, muscles strength 5/5 upper and lower extremities, full range of motion NEURO:CN 2-12 intact, sensation normal SKIN: No rash, erythema other skin changes noted. PSYCH: patient tearful during discussion regarding his leaving their currently living situation. Patient has normal affect. No thoughts of harming self or others. Does not express any hallucinations. Initial Vital Signs Initial Vital Signs: Vital Signs Temperature 97.9 F 05/14/20 21:57 Pulse Rate 86 05/14/20 21:57 Respiratory Rate 20 05/14/20 21:57 Blood Pressure 155/77 H 05/14/20 21:57 Pulse Oximetry 100 05/14/20 21:57 Scores CURB-65 Confusion: No BUN >19mg/dL (>7mmol/L): Yes Respiratory rate greater or equal to 30: No SBP <90mmHg or DBP less or equal to 60mmHg: No Age 65 or Older: Yes CURB-65 Total: 2 Score 0-1 Outpatient care, Score 2 Inpt vs. Obs, Score 3 or over Inpt admit with ICU for score of 4-5 Course Orders Ordered: ED Orders 05/14/20 22:08 EKG-12 Lead Stat 05/14/20 22:12 XR chest 1V Stat 05/14/20 23:31 Blood Culture Stat COVID19 Stat Complete Blood Count AUTO DIFF Stat Comprehensive Metabolic Panel Stat Lactate (Lactic Acid) Stat Lipase Stat Partial Thromboplastin Time Stat Procalcitonin Stat Prothrombin Time INR Stat 05/14/20 23:51 Trop I [Troponin I] Stat 05/14/20 23:53 RT Consult Eval and Treat Now Discontinued Medications Doxycycline Hyclate (Doxycycline Hyclate 100 Mg Tablet) 100 mg PO NOW ONE Stop: 05/15/20 00:53 Last Admin: 05/15/20 01:10 Dose: 100 mg Documented by: CHETAN Sodium Chloride (Normal Saline 0.9%) 1,000 mls @ 1,000 mls/hr IV BOLUS ONE Stop: 05/15/20 00:52 Last Infusion: 05/15/20 01:33 Dose: 0 mls/hr Documented by: Admin: 05/15/20 00:15 Dose: 1,000 mls/hr Documented by: CHETAN Vital Signs Vital signs: Vital Signs - 8 hr 05/14/20 21:57 05/15/20 01:29 Temperature 97.9 F 97.7 F Pulse Rate 86 73 Respiratory Rate 20 22 Blood Pressure 155/77 H 151/77 H Pulse Oximetry 100 96 Medical Decision Making Lab Data Lab results reviewed: Yes I reviewed the patient's lab results. Result diagrams: 05/14/20 23:31 05/14/20 23:31 Labs: Lab Results 05/14/20 05/14/20 05/14/20 Range/Units 23:31 23:31 23:31 WBC 7.0 (4.5-11.0) X10^3/uL RBC 3.78 L (4.5-5.9) X10^6/uL Hgb 11.3 L (13.5-17.5) g/dL Hct 33.6 L (41-53) % MCV 88.8 (80-100) fL MCH 29.8 (26-34) PG MCHC 33.6 (30-36) % RDW 14.8 (11.6-14.8) % Plt Count 173 (150-400) X10^3/uL Neut % (Auto) 70.4 (50-75) % Lymph % (Auto) 19.2 L (25-40) % [place] % (Auto) 6.7 (3-14) % Eos % (Auto) 1.8 L (2-4) % Baso % (Auto) 1.9 (0-2) % Neut # (Auto) 4900 (5543-2249) /uL Lymph # (Auto) 1300 (7971-9862) /uL [place] # (Auto) 500 (0-900) /uL Eos # (Auto) 100 (0-450) /uL Baso # (Auto) 100 (0-100) /uL PT 17.2 H (10.1-12.7) SECONDS INR 1.5 H (0.9-1.3) APTT 31 D (26.4-36.2) SECONDS Sodium (137-145) mmol/L Potassium (3.4-5.1) mmol/L Chloride (98-107) mmol/L Carbon Dioxide (22-32) mmol/L BUN (9-20) mg/dL Creatinine (0.66-1.25) mg/dL Estimated GFR (>60) mL/min BUN/Creatinine Ratio (6-22) Glucose (80-110) mg/dL Lactate (0.7-2.1) mmol/L Calcium (8.4-10.2) mg/dL Total Bilirubin (0.2-1.3) mg/dL AST (17-59) IU/L ALT (<50) IU/L Alkaline Phosphatase (38-126) U/L Troponin I (0.01-0.034) ng/mL Total Protein (6.3-8.2) g/dL Albumin (3.5-5.0) g/dL Globulin (1.7-4.1) g/dL Albumin/Globulin Ratio (1.0-2.8) Lipase (23-300) U/L Procalcitonin (<0.5) ng/mL SARS-CoV-2 (PCR) Negative (Negative) 05/14/20 05/14/20 05/14/20 Range/Units 23:31 23:31 23:51 WBC (4.5-11.0) X10^3/uL RBC (4.5-5.9) X10^6/uL Hgb (13.5-17.5) g/dL Hct (41-53) % MCV (80-100) fL MCH (26-34) PG MCHC (30-36) % RDW (11.6-14.8) % Plt Count (150-400) X10^3/uL Neut % (Auto) (50-75) % Lymph % (Auto) (25-40) % [place] % (Auto) (3-14) % Eos % (Auto) (2-4) % Baso % (Auto) (0-2) % Neut # (Auto) (4383-7565) /uL Lymph # (Auto) (7199-4765) /uL [place] # (Auto) (0-900) /uL Eos # (Auto) (0-450) /uL Baso # (Auto) (0-100) /uL PT (10.1-12.7) SECONDS INR (0.9-1.3) APTT (26.4-36.2) SECONDS Sodium 139 (137-145) mmol/L Potassium 4.5 (3.4-5.1) mmol/L Chloride 110 H (98-107) mmol/L Carbon Dioxide 26 (22-32) mmol/L BUN 30 H (9-20) mg/dL Creatinine 1.51 H (0.66-1.25) mg/dL Estimated GFR 44.2 L (>60) mL/min BUN/Creatinine Ratio 19.9 (6-22) Glucose 143 H (80-110) mg/dL Lactate 1.3 (0.7-2.1) mmol/L Calcium 9.0 (8.4-10.2) mg/dL Total Bilirubin 0.6 (0.2-1.3) mg/dL AST 48 (17-59) IU/L ALT 25 (<50) IU/L Alkaline Phosphatase 101 (38-126) U/L Troponin I < 0.012 (0.01-0.034) ng/mL Total Protein 6.7 (6.3-8.2) g/dL Albumin 3.7 (3.5-5.0) g/dL Globulin 3.0 (1.7-4.1) g/dL Albumin/Globulin Ratio 1.2 (1.0-2.8) Lipase 149 (23-300) U/L Procalcitonin 0.10 (<0.5) ng/mL SARS-CoV-2 (PCR) (Negative) Imaging Data Chest x-ray: Radiologist's Impression: Slight haziness left base probably summation artifact. Slight pleural effusion or small infiltrate less likely. Clinical correlate, comparison to prior studies and follow-up is suggested. ECG Data Attestation: I personally reviewed and interpreted this ECG as follows: Prior ECG tracings: available for review Interpretation: Atrial fibrillation, QRS of 108 QTC of 404. Rate 141. Rapid ventricular response, left axis deviation with right bundle-branch block and inferior infarct. Patient has prior EKG with Afib, RBBB, no acute ST changes appreciated on comparison. [facility] Narrative Medical decision making narrative: This is an 84-year-old male comes to the emergency department with complaint chills and shakes with decreased energy. He has been able to ambulate without issue. Patient shows possible left lower lobe pneumonia. His labs show a baseline anemia, low lymphocytes but no leftward shift. INR is 1.5 with a renal function that appears stable 1.5 as well, chloride is mildly elevated and BUN appears stable. Patient's BNP is 3500 and also appears stable with recent comparison. Troponin is negative with a negative procalcitonin. Blood cultures are pending. Patient does not meet any obvious septic criteria. He does not have any urinary symptoms at this time. Patient appeared to have elevated heart rate on his EKG but he department consistently has a pulse in the 70-80 range on vitals and exam. Discussed with patient he may have a pneumonia plan for course of oral antibiotics but with strict return precautions. Blood cultures are pending. Patient also had some personal life changes, to somewhat confusing story. Patient does not appear altered, confused and while tearful is not complaining of any other psychiatric issues and I do not appreciate any clear issues on exam. Facesheet with contact info left for [facility] to reach out to patient for follow up and to offer any services as needed. Patient has support locally with a ride present outside the ER. Discharge Plan Departure Patient Disposition: Home Clinical Impression: Pneumonia Qualifiers: Pneumonia type: due to unspecified organism Laterality: left Lung location: lower lobe of lung Qualified Code(s): J18.9 - Pneumonia, unspecified organism Instructions: DI for Pneumonia -- Adult Activity Restrictions/Additional Instructions: Follow up with primary care this week for recheck. Continue home medications as prescribed. Take antibiotics until gone. Prescription to [facility]. Return to the ER for fevers, worsening symptoms, lightheadedness or passing out, persistent vomiting, new chest pain or shortness of breath, new or worsening swelling your extremities or other new or concerning symptoms. Prescriptions: New doxycycline hyclate 100 mg tablet 100 mg PO BID Qty: 20 RF: 0 No Action tramadol 50 MG tablet 100 mg PO QID PRN (Reason: Pain (Scale Score 1-3)) Qty: 0 RF: 0 ferrous sulfate [Iron (ferrous sulfate)] 325 mg (65 mg iron) Tablet 325 mg PO DAILY RF: 0 midodrine 5 mg Tablet 5 mg PO 0600,1200,1800 Qty: 15 RF: 0 digoxin 125 mcg (0.125 mg) Tablet 0.125 mg PO DAILY Qty: 30 RF: 0 metoprolol tartrate 25 mg Tablet 12.5 mg PO BID Qty: 30 RF: 0 levothyroxine 50 mcg Tablet 50 mcg PO MOTUWETHFRSA RF: 0 warfarin [Coumadin] 5 mg Tablet 5 mg PO BEDTIME RF: 0 warfarin 5 mg tablet 5 mg PO QPM RF: 0 docusate sodium 100 mg RF: 0 ferrous sulfate, dried 65 mg RF: 0 furosemide 80 mg Tablet RF: 0 Referrals: Lakisha Dangelo MD [Primary Care Provider] -
== END 2020-05-15 01:29 | disposition home or self-care (01) ==
PROVIDERS: Emergency Provider Emergency Medicine; PCP Internal Medicine
DX: J18.9 Pneumonia, unspecified organism (principal); R05 Cough; I48.91 Unspecified atrial fibrillation; Z79.01 Long term (current) use of anticoagulants; Z20.822 Contact with and (suspected) exposure to COVID-19
CPT/HCPCS: 36415; 71045; 80053; 83605; 83690; 84145; 84484; 85025; 85610; 85730; 87040; 87635; 93005; 96360; 99282; 99284; C9803

== ENCOUNTER 2020-05-23 16:21 | Emergency (ER) | payer OTHER, SELFPAY ==
[2020-05-23] VITALS (8 sets, daily range): BP systolic 140–183; BP diastolic 68–86; PULSE 81–106; RESP 16; TEMP 36.7; O2SAT 97–100; BMI 33.9
--- NOTE | 2020-05-23 16:35 | DI.RAD.S_ITS ---
PROCEDURE: XR ABDOMEN MIN 2V INDICATIONS: abdominal pain, decreased BM TECHNIQUE: 2 views of the abdomen were acquired. COMPARISON: [facility], , ABDOMEN 2 VIEW, 06/19/2010, 10:20. FINDINGS: Surgical changes and devices: None. Bowel: No pneumoperitoneum. The bowel gas pattern is normal. Soft tissues: No masses; visualized solid organ contours appear normal in size. No suspicious abdominal calcifications. Bones: No suspicious bony abnormalities. IMPRESSION: Source of abdominal pain is not seen. Nonspecific bowel gas pattern. Dictated by: Riki Navarro M.D. on 05/23/2020 at 16:21 Approved by: Riki Navarro M.D. on 05/23/2020 at 16:21
[2020-05-23] MEDS: SODIUM CHLORIDE 0.9% 1,000 ML 150 ML IV (16:46)
[2020-05-23 16:55] LABS: Add Manual Diff / Slide Review NO; Basophils Absolute Auto 0 /uL (0-100); Basophils Percent Auto 0.1 % (0-2); Eosinophils Absolute Auto 100 /uL (0-450); Eosinophils Percent Auto 1.7 % (2-4); Hematocrit 35.7 % (41-53); Hemoglobin 12.1 g/dL (13.5-17.5); Lymphocytes Absolute Auto 1400 /uL (1100-4500); Lymphocytes Percent Auto 19.3 % (25-40); Mean Corpuscular HGB Conc 33.7 % (30-36); Mean Corpuscular Hemoglobin 30.2 PG (26-34); Mean Corpuscular Volume 89.5 fL (80-100); Monocytes Absolute Auto 500 /uL (0-900); Monocytes Percent Auto 7.1 % (3-14); Neutrophils Absolute Auto 5100 /uL (1500-7000); Neutrophils Percent Auto 71.8 % (50-75); Platelet Count 182 X10^3/uL (150-400); Red Blood Cell Count 3.99 X10^6/uL (4.5-5.9); White Blood Cell Count 7.2 X10^3/uL (4.5-11.0)
--- NOTE | 2020-05-23 16:56 | ED.ABDPAIN ---
HPI - Abdominal Pain General Chief Complaint: Abdominal Pain Stated Complaint: passing lots of gas, stomach ache Time Seen by Provider: 05/23/20 16:25 Source: patient Mode of arrival: Wheelchair Limitations: no limitations History of Present Illness HPI narrative: 84-year-old male nonsmoker with history of atrial fibrillation hypothyroidism, hyper glycemia presents with a chief complaint of generalized lower abdominal pain and trouble with bowel movements over the past few days. He has nausea but denies any vomiting. He denies any loose stools but states he is passing a significant amount of gas. His pain is generalized and he denies much in the way of provocation, palliation or radiation. He has had no fever chills. He recently was started on doxycycline to treat pneumonia. MD complaint: abdominal pain Onset (ago): day(s) Pain Consistency: intermittent Location: diffuse Severity: moderate Quality: cramping and aching Migration to: no migration Relieving factors: nothing Exacerbating factors: nothing Associated symptoms: nausea and constipation Related Data Home Medications Medication Instructions Recorded Confirmed tramadol 100 mg PO QID PRN #0 02/03/16 01/06/20 levothyroxine 50 mcg PO MOTUWETHFRSA 09/16/17 01/06/20 warfarin [Coumadin] 5 mg PO BEDTIME 07/20/18 01/06/20 ferrous sulfate [Iron (ferrous 325 mg PO DAILY 07/11/19 01/06/20 sulfate)] warfarin 5 mg PO QPM 01/05/20 01/05/20 docusate sodium 01/06/20 ferrous sulfate, dried 01/06/20 furosemide 01/06/20 Previous Rx's Medication Instructions Recorded digoxin 0.125 mg PO DAILY #30 tab 10/01/19 metoprolol tartrate 12.5 mg PO BID #30 tab 10/01/19 midodrine 5 mg PO 0600,1200,1800 #15 tab 10/01/19 doxycycline hyclate 100 mg PO BID #20 tab 05/15/20 Allergies Allergy/AdvReac Type Severity Reaction Status Date / Time Penicillins Allergy Unknown Verified 05/23/20 16:37 Review of Systems Constitutional Constitutional: Denies chills, Denies fatigue, Denies fever(s), Denies frequent falls, Denies lethargy and Denies weakness Eyes Eyes: Denies change in vision, Denies eye discharge, Denies irritation and Denies loss of vision ENT Ears, Nose, Mouth, and Throat: Denies change in voice, Denies dizziness, Denies neck pain, Denies sore throat and Denies throat swelling Cardiovascular Cardiovascular: Denies chest pain, Denies irregular heart rhythm, Denies lightheadedness, Denies palpitations, Denies dyspnea, Denies dyspnea on exertion and Denies orthopnea Respiratory Respiratory: Denies cough, Denies dyspnea, Denies dyspnea on exertion and Denies wheezing Gastrointestinal Gastrointestinal: Reports abdominal pain, Denies change in bowel habits, Reports constipation, Denies diarrhea, Reports nausea and Denies vomiting Musculoskeletal Musculoskeletal: Denies neck pain and Denies numbness Integumentary/Breasts Skin/Breast: Denies pruritus, Denies erythema, Denies rash and Denies wounds Neurologic Neurologic: Denies behavioral changes, Denies confusion, Denies dizziness, Denies frequent falls, Denies loss of vision, Denies numbness and Denies weakness Psychiatric Psychiatric: Denies anxiety, Denies behavioral changes, Denies confusion, Denies depression, Denies homicidal ideation and Denies suicidal ideation Endocrine Endocrine: Denies fatigue, Denies flushing and Denies palpitations Hematologic/Lymphatic Hematologic/Lymphatic: Denies easy bruising Allergic/Immunologic Allergic/Immunologic: Denies urticaria, Denies throat swelling and Denies wheezing Patient History Medical History Cancer of left ear Chronic atrial fibrillation with RVR Diabetes E coli infection Hernia of abdominal cavity Hypothyroidism Inguinal hernia bilateral, non-recurrent Melanoma Prostate cancer Right eye injury Surgical History History of throat surgery History of transurethral resection of prostate Status post bilateral hernia repair Social History household members: spouse and children Smoking Status: Never smoker alcohol intake: never Smoking Status: Never smoker alcohol intake frequency: other Substance Use Type: does not use Exam Narrative Exam Narrative: GENERAL: [84] year old patient appears stated age. Well-nourished, well-developed patient, in mild distress. HEAD: Atraumatic. Normocephalic. EYES: Pupils equal round and reactive. Extraocular motions intact. No scleral icterus. No injection or drainage. ENT: Nose without bleeding, purulent drainage. Throat without erythema, tonsillar hypertrophy or exudate. Airway patent. NECK: Trachea midline. Non tender CARDIOVASCULAR: Regular rate and rhythm without murmurs, gallops, or rubs. RESPIRATORY: Clear to auscultation. Breath sounds equal bilaterally. No wheezes, rales, or rhonchi. GASTROINTESTINAL: Abdomen soft, non-tender, nondistended. Bowel sounds present in all 4 quadrants EXTREMITIES: No edema or joint tenderness. BACK: Nontender without deformity or crepitance. No flank tenderness. NEURO: AOx3. SKIN: No rash or erythema of visible areas Initial Vital Signs Initial Vital Signs: Vital Signs Temperature 98.0 F 05/23/20 16:34 Pulse Rate 106 H 05/23/20 16:34 Respiratory Rate 16 05/23/20 16:34 Blood Pressure 183/83 H 05/23/20 16:34 Pulse Oximetry 98 05/23/20 16:34 Course Orders Ordered: ED Orders 05/23/20 16:35 XR abdomen min 2V Stat 05/23/20 16:50 Complete Blood Count AUTO DIFF Stat Comprehensive Metabolic Panel Stat Lipase Stat 05/23/20 17:00 Consult to HOME CARE COORDINATOR - International Affairs Vice President Stat 05/23/20 17:32 CT abdomen pelvis w con Stat Sodium Chloride (Normal Saline 0.9%) 1,000 mls @ 150 mls/hr IV CONT GARRETT Last Admin: 05/23/20 16:46 Dose: 150 mls/hr Documented by: DEZ Vital Signs Vital signs: Vital Signs - 8 hr 05/23/20 16:34 05/23/20 16:37 05/23/20 17:06 Temperature 98.0 F Pulse Rate 106 H 95 H 90 Respiratory Rate 16 Blood Pressure 183/83 H Pulse Oximetry 98 98 100 05/23/20 17:07 05/23/20 17:30 05/23/20 18:10 Temperature Pulse Rate 90 81 97 H Respiratory Rate Blood Pressure 156/86 H 149/68 H Pulse Oximetry 100 97 100 05/23/20 18:30 05/23/20 18:32 Temperature Pulse Rate 94 H 85 Respiratory Rate Blood Pressure 140/79 Pulse Oximetry 100 100 MDM - Abdominal Pain Lab Data Result diagrams: 05/23/20 16:50 05/23/20 16:50 Labs: Lab Results 05/23/20 05/23/20 Range/Units 16:50 16:50 WBC 7.2 (4.5-11.0) X10^3/uL RBC 3.99 L (4.5-5.9) X10^6/uL Hgb 12.1 L (13.5-17.5) g/dL Hct 35.7 L (41-53) % MCV 89.5 (80-100) fL MCH 30.2 (26-34) PG MCHC 33.7 (30-36) % RDW 15.0 H (11.6-14.8) % Plt Count 182 (150-400) X10^3/uL Neut % (Auto) 71.8 (50-75) % Lymph % (Auto) 19.3 L (25-40) % [place] % (Auto) 7.1 (3-14) % Eos % (Auto) 1.7 L (2-4) % Baso % (Auto) 0.1 (0-2) % Neut # (Auto) 5100 (3793-8727) /uL Lymph # (Auto) 1400 (1986-8165) /uL [place] # (Auto) 500 (0-900) /uL Eos # (Auto) 100 (0-450) /uL Baso # (Auto) 0 (0-100) /uL Sodium 139 (137-145) mmol/L Potassium 4.3 (3.4-5.1) mmol/L Chloride 102 (98-107) mmol/L Carbon Dioxide 33 H (22-32) mmol/L BUN 37 H (9-20) mg/dL Creatinine 1.70 H (0.66-1.25) mg/dL Estimated GFR 38.6 L (>60) mL/min BUN/Creatinine Ratio 21.8 (6-22) Glucose 208 H (80-110) mg/dL Calcium 9.1 (8.4-10.2) mg/dL Total Bilirubin 0.8 (0.2-1.3) mg/dL AST 38 (17-59) IU/L ALT 18 (<50) IU/L Alkaline Phosphatase 108 (38-126) U/L Total Protein 7.2 (6.3-8.2) g/dL Albumin 4.0 (3.5-5.0) g/dL Globulin 3.2 (1.7-4.1) g/dL Albumin/Globulin Ratio 1.3 (1.0-2.8) Lipase 64 D (23-300) U/L Point of care testing: Urine Dip Bedside Urine Glucose 100 mg/dl Bedside Urine Bilirubin - Negative Bedside Urine Ketone - Negative Urine Specific [place] 1.015 Bedside Urine Occult Blood - Negative Bedside Urine pH 6.0 Bedside Urine Protein - Negative Bedside Urine Urobilinogen - Negative Bedside Urine Nitrite - Negative Bedside Urine Leukocytes - Negative Esterase Imaging Data CT scan - abdomen/pelvis: Radiologist's Impression: Chart Viewer Diagnostics DATE TYPE STATUS REF RANGE/AUTHOR Windy Today 17:32 Braxton Zuniga Today 16:35 Riki Navarro 05/14/20 22:12 Riki Navarro 03/06/20 15:51 Frankie Viatl 01/30/20 00:00 Riki Naavrro 01/06/20 11:04 01/05/20 19:17 Riki Navarro 11/19/19 16:43 HankTony christine 11/19/19 16:43 Tony Mckinney 09/30/19 17:07 Bovill,Tony 09/29/19 10:35 09/28/19 12:47 Ruddy Mancini 09/09/19 15:41 Ramsey Maurice 08/05/19 11:22 Hank,Tony 07/16/19 13:02 Addis,Ruddy 07/11/19 20:14 Riki Navarro 07/11/19 17:22 Frankie Vital 07/11/19 16:26 Paola Mcdowell 07/11/19 14:12 07/11/19 12:03 Paola Mcdowell 07/11/19 11:05 Riki Navarro 11/17/18 11:00 Romana Rowe 11/01/18 00:00 Alejo Mejía 09/05/18 00:00 Riki Navarro 07/27/18 00:50 Alejo Mejía 07/20/18 15:10 Addis,Ruddy 07/20/18 11:54 Hank,Tony 07/20/18 11:26 Ritika Conn 07/19/18 00:42 Braxton Zuniga 07/18/18 23:20 Braxton Zuniga Eric F 84, M0 1935 [facility], [facility] ED R06 182.88cm 113.398kg BMI: 33.9kg/m? Abdominal Pain Search Chart No Data to Display Total Unconfirmed ONSET Today 18:32 Marty Heard 84 M [address] [id number] Scan ReportSigned Patient: Marty Heard FMR#: [id number]: 1935cct:[id number]/Sex: 84 / MDate of Service: 05/23/20Loc: EDAccession Number: [id number] Procedure: CT abdomen pelvis w con Ordering Provider: Adam Majano D.O. PROCEDURE: CT ABDOMEN PELVIS W CON INDICATIONS: severe abdominal pain TECHNIQUE: After the administration of intravenous contrast, 5 mm thick sections acquired from the diaphragm to the symphysis. 5 mm coronal and sagittal reformats were acquired. For radiation dose reduction, the following was used: automated exposure control, adjustment of mA and/or kV according to patient size. COMPARISON: [facility], CT, CT ABDOMEN PELVIS WO CON, 07/16/2019, 13:18. [facility], CT, CT ABDOMEN PELVIS W CON, 11/17/2018, 11:33. FINDINGS: Image quality: Excellent. ABDOMEN: Lung bases: Lung bases are clear. Heart size is normal. Mild atherosclerotic calcifications of the coronary arteries. Solid organs: Liver is normal in size and enhancement. Stable hepatic dome hypodensity which likely represents a cyst versus hemangioma. Gallbladder is surgically absent. Biliary system is non dilated. Pancreas enhances normally. Previously noted peripancreatic inflammatory stranding is not appreciated. Spleen is normal in size and enhancement. No adrenal nodules. Left renal atrophy as before. Small partially exophytic left renal cyst as before. Punctate non-obstructing right renal stone. Bilateral ureters are normal in course and caliber. No perinephric inflammatory stranding. Peritoneum and bowel: Large amount of stool noted in the rectum. There is also moderate to large amount of stool scattered throughout the visualized colon. No bowel wall thickening. Colonic diverticulosis without acute diverticulitis. Bowel loops demonstrate normal wall thickness and caliber. No free fluid or air. Small duodenum diverticulum. Nodes and vessels: No retroperitoneal or mesenteric adenopathy by size criteria. Aorta and inferior vena cava are normal in size. Scattered atherosclerotic calcifications of the abdominal aorta and iliac vessels without aneurysmal dilatation. Miscellaneous: No ventral hernias. PELVIS: Genitourinary: Bladder wall thickness is normal. Miscellaneous: No inguinal hernias or adenopathy. Bones: No suspicious bony lesions. No acute vertebral body compression fractures. Moderate multilevel spondylitic changes seen throughout the imaged spine. This is not significantly changed. IMPRESSION: 1. Moderate-large amount of fecal material seen throughout the colon with large amount of fecal material noted in the rectum with associated distension. Findings may be related to constipation with fecal impaction. No evidence for obstruction. Otherwise, no acute abnormalities identified in the abdomen or pelvis. 2. Colonic diverticulosis without acute diverticulitis. 3. Nonobstructing right nephrolith. No evidence for obstructive uropathy. 4. Status post cholecystectomy. 5. Atherosclerosis. Other chronic findings as above. Dictated by: Braxton Zuniga M.D. on 05/23/2020 at 18:23 Approved by: Braxton Zuniga M.D. on 05/23/2020 at 18:30 Discharge Plan Departure Patient Disposition: Home Clinical Impression: Abdominal pain Qualifiers: Abdominal location: generalized Qualified Code(s): R10.84 - Generalized abdominal pain Constipation Qualifiers: Constipation type: unspecified constipation type Qualified Code(s): K59.00 - Constipation, unspecified Instructions: DI for Abdominal Pain-Adult, DI for Constipation Activity Restrictions/Additional Instructions: *You have been diagnosed with [ abdominal pain due to constipation ] *What to do: *Take over the counter medications as directed: 1. Metamucil - bulk forming laxative adds fiber 2. Colace - softens your stool 3. Dulcolax Suppository - stimulates your bowels from the bottom *Follow up with your primary care provider in 2-3 days, call for appointment *Return to ER if you should have any new, worsening or concerning symptoms *Drink plenty of water and eat foods high in fiber *Try to be as active as possible, consider walking your dog daily Prescriptions: No Action tramadol 50 MG tablet 100 mg PO QID PRN (Reason: Pain (Scale Score 1-3)) Qty: 0 RF: 0 ferrous sulfate [Iron (ferrous sulfate)] 325 mg (65 mg iron) Tablet 325 mg PO DAILY RF: 0 midodrine 5 mg Tablet 5 mg PO 0600,1200,1800 Qty: 15 RF: 0 digoxin 125 mcg (0.125 mg) Tablet 0.125 mg PO DAILY Qty: 30 RF: 0 metoprolol tartrate 25 mg Tablet 12.5 mg PO BID Qty: 30 RF: 0 doxycycline hyclate 100 mg tablet 100 mg PO BID Qty: 20 RF: 0 levothyroxine 50 mcg Tablet 50 mcg PO MOTUWETHFRSA RF: 0 warfarin [Coumadin] 5 mg Tablet 5 mg PO BEDTIME RF: 0 warfarin 5 mg tablet 5 mg PO QPM RF: 0 docusate sodium 100 mg RF: 0 ferrous sulfate, dried 65 mg RF: 0 furosemide 80 mg Tablet RF: 0 Referrals: Lakisha Dangelo MD [Primary Care Provider] -
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
[2020-05-23 17:10] LABS: Alanine Aminotransferase 18 IU/L (<50); Albumin Globulin Ratio 1.3 (1.0-2.8); Alkaline Phosphatase 108 U/L (38-126); Aspartate Aminotransferase 38 IU/L (17-59); BUN Creatinine Ratio 21.8 (6-22); Bilirubin Total 0.8 mg/dL (0.2-1.3); Blood Urea Nitrogen 37 mg/dL (9-20); Calcium 9.1 mg/dL (8.4-10.2); Carbon Dioxide 33 mmol/L (22-32); Chloride 102 mmol/L (98-107); Estimated Glomerular Filt Rate 38.6 mL/min (>60); Globulin 3.2 g/dL (1.7-4.1); Glucose 208 mg/dL (80-110); HEMOLYSIS 28 (0-50); Lipase 64 U/L (23-300); Potassium 4.3 mmol/L (3.4-5.1); Sodium 139 mmol/L (137-145); Total Protein 7.2 g/dL (6.3-8.2)
--- NOTE | 2020-05-23 17:32 | DI.CT.S_ITS ---
PROCEDURE: CT ABDOMEN PELVIS W CON INDICATIONS: severe abdominal pain TECHNIQUE: After the administration of intravenous contrast, 5 mm thick sections acquired from the diaphragm to the symphysis. 5 mm coronal and sagittal reformats were acquired. For radiation dose reduction, the following was used: automated exposure control, adjustment of mA and/or kV according to patient size. COMPARISON: [facility], CT, CT ABDOMEN PELVIS WO CON, 07/16/2019, 13:18. [facility], CT, CT ABDOMEN PELVIS W CON, 11/17/2018, 11:33. FINDINGS: Image quality: Excellent. ABDOMEN: Lung bases: Lung bases are clear. Heart size is normal. Mild atherosclerotic calcifications of the coronary arteries. Solid organs: Liver is normal in size and enhancement. Stable hepatic dome hypodensity which likely represents a cyst versus hemangioma. Gallbladder is surgically absent. Biliary system is non dilated. Pancreas enhances normally. Previously noted peripancreatic inflammatory stranding is not appreciated. Spleen is normal in size and enhancement. No adrenal nodules. Left renal atrophy as before. Small partially exophytic left renal cyst as before. Punctate non-obstructing right renal stone. Bilateral ureters are normal in course and caliber. No perinephric inflammatory stranding. Peritoneum and bowel: Large amount of stool noted in the rectum. There is also moderate to large amount of stool scattered throughout the visualized colon. No bowel wall thickening. Colonic diverticulosis without acute diverticulitis. Bowel loops demonstrate normal wall thickness and caliber. No free fluid or air. Small duodenum diverticulum. Nodes and vessels: No retroperitoneal or mesenteric adenopathy by size criteria. Aorta and inferior vena cava are normal in size. Scattered atherosclerotic calcifications of the abdominal aorta and iliac vessels without aneurysmal dilatation. Miscellaneous: No ventral hernias. PELVIS: Genitourinary: Bladder wall thickness is normal. Miscellaneous: No inguinal hernias or adenopathy. Bones: No suspicious bony lesions. No acute vertebral body compression fractures. Moderate multilevel spondylitic changes seen throughout the imaged spine. This is not significantly changed. IMPRESSION: 1. Moderate-large amount of fecal material seen throughout the colon with large amount of fecal material noted in the rectum with associated distension. Findings may be related to constipation with fecal impaction. No evidence for obstruction. Otherwise, no acute abnormalities identified in the abdomen or pelvis. 2. Colonic diverticulosis without acute diverticulitis. 3. Nonobstructing right nephrolith. No evidence for obstructive uropathy. 4. Status post cholecystectomy. 5. Atherosclerosis. Other chronic findings as above. Dictated by: Braxton Zuniga M.D. on 05/23/2020 at 18:23 Approved by: Braxton Zuniga M.D. on 05/23/2020 at 18:30
== END 2020-05-23 20:00 | disposition home or self-care (01) ==
PROVIDERS: Emergency Provider Emergency Medicine; PCP Internal Medicine
DX: R10.84 Generalized abdominal pain (principal); K59.00 Constipation, unspecified; R11.0 Nausea
CPT/HCPCS: 36415; 74019; 74177; 80053; 81003; 83690; 85025; 96360; 96361; 99284; Q9967

== ENCOUNTER 2020-06-01 23:29 | Emergency (ER) | payer OTHER, SELFPAY ==
[2020-06-01 23:30] VITALS: BP 117/55; PULSE 83; RESP 16; TEMP 36.4; O2SAT 97; BMI 33.9
--- NOTE | 2020-06-01 23:31 | ED_ITS ---
HPI - Abdominal Pain General Chief Complaint: Abdominal Pain Stated Complaint: Cant pass BM Time Seen by Provider: 06/01/20 23:31 Source: patient Mode of arrival: Ambulatory Limitations: no limitations History of Present Illness HPI narrative: 84-year-old male nonsmoker with history of atrial fibrillation hypothyroidism, hyper glycemia presents with a chief complaint of mild generalized lower abdominal pain and trouble with bowel movements over the past few days. His pain comes in waves and he denies any obvious provocation, palliation, or radiation. He denies N/V. He was recently seen here for similar complaint and had reassuring labs, xray, and CT. He has passed gas and small, hard stools. He took some Miralax and a Senna suppository earlier without much help. He's had no fever chills. He denies any significant dietary or medication change MD complaint: abdominal pain Onset (ago): day(s) Pain Consistency: intermittent Location: diffuse Severity: mild Quality: cramping Radiation: none Relieving factors: nothing Exacerbating factors: nothing Associated symptoms: constipation Treatments prior to arrival: other Related Data Home Medications Medication Instructions Recorded Confirmed tramadol 100 mg PO QID PRN #0 02/03/16 01/06/20 levothyroxine 50 mcg PO MOTUWETHFRSA 09/16/17 01/06/20 warfarin [Coumadin] 5 mg PO BEDTIME 07/20/18 01/06/20 ferrous sulfate [Iron (ferrous 325 mg PO DAILY 07/11/19 01/06/20 sulfate)] warfarin 5 mg PO QPM 01/05/20 01/05/20 docusate sodium 01/06/20 ferrous sulfate, dried 01/06/20 furosemide 01/06/20 Previous Rx's Medication Instructions Recorded digoxin 0.125 mg PO DAILY #30 tab 10/01/19 metoprolol tartrate 12.5 mg PO BID #30 tab 10/01/19 midodrine 5 mg PO 0600,1200,1800 #15 tab 10/01/19 doxycycline hyclate 100 mg PO BID #20 tab 05/15/20 Allergies Allergy/AdvReac Type Severity Reaction Status Date / Time Penicillins Allergy Unknown Verified 05/23/20 16:37 Review of Systems Constitutional Constitutional: Denies chills, Denies fatigue, Denies fever(s), Denies frequent falls, Denies lethargy and Denies weakness Eyes Eyes: Denies change in vision, Denies eye discharge, Denies irritation and Denies loss of vision ENT Ears, Nose, Mouth, and Throat: Denies change in voice, Denies dizziness, Denies neck pain, Denies sore throat and Denies throat swelling Cardiovascular Cardiovascular: Denies chest pain, Denies irregular heart rhythm, Denies lightheadedness, Denies palpitations, Denies dyspnea, Denies dyspnea on exertion and Denies orthopnea Respiratory Respiratory: Denies cough, Denies dyspnea, Denies dyspnea on exertion and Denies wheezing Gastrointestinal Gastrointestinal: Reports abdominal pain, Denies change in bowel habits, Reports constipation, Denies diarrhea, Denies nausea and Denies vomiting Musculoskeletal Musculoskeletal: Denies neck pain and Denies numbness Integumentary/Breasts Skin/Breast: Denies pruritus, Denies erythema, Denies rash and Denies wounds Neurologic Neurologic: Denies behavioral changes, Denies confusion, Denies dizziness, Denies frequent falls, Denies loss of vision, Denies numbness and Denies weakness Psychiatric Psychiatric: Denies anxiety, Denies behavioral changes, Denies confusion, Denies depression, Denies homicidal ideation and Denies suicidal ideation Endocrine Endocrine: Denies fatigue, Denies flushing and Denies palpitations Hematologic/Lymphatic Hematologic/Lymphatic: Denies easy bruising Allergic/Immunologic Allergic/Immunologic: Denies urticaria, Denies throat swelling and Denies wheezing Patient History Medical History Cancer of left ear Chronic atrial fibrillation with RVR Diabetes E coli infection Hernia of abdominal cavity Hypothyroidism Inguinal hernia bilateral, non-recurrent Melanoma Prostate cancer Right eye injury Surgical History History of throat surgery History of transurethral resection of prostate Status post bilateral hernia repair Social History household members: spouse and children Smoking Status: Never smoker alcohol intake: never Smoking Status: Never smoker alcohol intake frequency: other Substance Use Type: does not use Exam Narrative Exam Narrative: GENERAL: [84] year old patient appears stated age. Well- nourished, well-developed patient, in mild distress. HEAD: Atraumatic. Normocephalic. EYES: Pupils equal round and reactive. Extraocular motions intact. No scleral icterus. No injection or drainage. ENT: Nose without bleeding, purulent drainage. Throat without erythema, tonsillar hypertrophy or exudate. Airway patent. NECK: Trachea midline. Non tender CARDIOVASCULAR: Regular rate and rhythm without murmurs, gallops, or rubs. RESPIRATORY: Clear to auscultation. Breath sounds equal bilaterally. No wheezes, rales, or rhonchi. GASTROINTESTINAL: Abdomen soft, non-tender, nondistended. Bowel sounds noted in all 4 quadrants RECTAL: Firm stool noted, easily manually removed. No hemorrhoid of bleeding noted. EXTREMITIES: No edema or joint tenderness. BACK: Nontender without deformity or crepitance. No flank tenderness. NEURO: AOx3. SKIN: No rash or erythema of visible areas Initial Vital Signs Initial Vital Signs: Vital Signs Temperature 97.5 F L 06/01/20 23:30 Pulse Rate 83 06/01/20 23:30 Respiratory Rate 16 06/01/20 23:30 Blood Pressure 117/55 L 06/01/20 23:30 Pulse Oximetry 97 06/01/20 23:30 Course Course Course Narrative: patient given Dulcolax suppository with minimal relief. Enema produces large BM with significant improvement. Orders Ordered: ED Orders 06/01/20 23:48 XR abdomen min 2V Stat Discontinued Medications Bisacodyl (Bisacodyl 10 Mg Supp) 10 mg PA NOW ONE Stop: 06/02/20 00:15 Last Admin: 06/02/20 00:20 Dose: 10 mg Documented by: [place] Mineral Oil (Mineral Oil 1 Each Enema) 1 each PA NOW ONE Stop: 06/02/20 01:21 Last Admin: 06/02/20 01:22 Dose: 1 each Documented by: [place] Vital Signs Vital signs: Vital Signs - 8 hr 06/01/20 23:30 06/02/20 02:17 06/02/20 02:19 Temperature 97.5 F L Pulse Rate 83 100 H 100 H Respiratory Rate 16 20 Blood Pressure 117/55 L 114/74 114/74 Pulse Oximetry 97 100 100 MDM - Abdominal Pain Imaging Data Abdominal x-ray: Attestation: I personally reviewed and interpreted this imaging study as follows: My Impression: No obstruction Radiologist's Impression: No obstruction, appearance consistent with enteritis vs. dysmotility Discharge Plan Departure Patient Disposition: Home Clinical Impression: Constipation Qualifiers: Constipation type: unspecified constipation type Qualified Code(s): K59.00 - Constipation, unspecified Instructions: DI for Constipation Activity Restrictions/Additional Instructions: *You have been diagnosed with [ abdominal pain due to constipation ] *What to do: *Take over the counter medications as directed: 1. Metamucil - is a bulk forming laxative and adds fiber 2. Colace - softens your stool 3. Dulcolax suppository - stimulates your bowels *Follow up with your primary care provider in 2-3 days, call for appointment *Return to ER if you should have any new, worsening or concerning symptoms *Drink plenty of water and eat foods high in fiber *Stay as active as you can as this helps move your bowels as well Prescriptions: No Action tramadol 50 MG tablet 100 mg PO QID PRN (Reason: Pain (Scale Score 1-3)) Qty: 0 RF: 0 ferrous sulfate [Iron (ferrous sulfate)] 325 mg (65 mg iron) Tablet 325 mg PO DAILY RF: 0 midodrine 5 mg Tablet 5 mg PO 0600,1200,1800 Qty: 15 RF: 0 digoxin 125 mcg (0.125 mg) Tablet 0.125 mg PO DAILY Qty: 30 RF: 0 metoprolol tartrate 25 mg Tablet 12.5 mg PO BID Qty: 30 RF: 0 doxycycline hyclate 100 mg tablet 100 mg PO BID Qty: 20 RF: 0 levothyroxine 50 mcg Tablet 50 mcg PO MOTUWETHFRSA RF: 0 warfarin [Coumadin] 5 mg Tablet 5 mg PO BEDTIME RF: 0 warfarin 5 mg tablet 5 mg PO QPM RF: 0 docusate sodium 100 mg RF: 0 ferrous sulfate, dried 65 mg RF: 0 furosemide 80 mg Tablet RF: 0 Referrals: Lakisha Dangelo MD [Primary Care Provider] -
--- NOTE | 2020-06-01 23:48 | DI.RAD.S_ITS ---
PROCEDURE: XR ABDOMEN MIN 2V INDICATIONS: abdominal pain, decreased bowel movements TECHNIQUE: 2 views of the abdomen were acquired. COMPARISON: [facility], CT, CT ABDOMEN PELVIS W CON, 05/23/2020, 17:39. [facility], CR, XR ABDOMEN MIN 2V, 05/23/2020, 16:51. [facility], CR, ABDOMEN 2 VIEW, 06/19/2010, 10:20. FINDINGS: Surgical changes and devices: Cholecystectomy clips. Bowel: No pneumoperitoneum. Question of small air-fluid levels. Scattered small bowel and colonic gas. Prominent stool in the rectum and distal colon. Soft tissues: No masses; visualized solid organ contours appear normal in size. No suspicious abdominal calcifications. Lung bases are clear. Bones: No suspicious bony abnormalities. IMPRESSION: Prominent stool in the rectum and distal colon. Question of small air-fluid levels. This could be seen in adynamic ileus or enteritis. This report is concordant with the overnight preliminary interpretation. Dictated by: Felipe Andrade M.D. on 06/02/2020 at 7:42 Approved by: Felipe Andrade M.D. on 06/02/2020 at 7:44
[2020-06-02] MEDS: BISACODYL 10 MG SUPP PR (00:20)
[2020-06-02] MEDS: MINERAL OIL 1 EACH ENEMA PR (01:22)
[2020-06-02 02:17] VITALS: BP 114/74; PULSE 100; O2SAT 100
[2020-06-02 02:19] VITALS: BP 114/74; PULSE 100; RESP 20; O2SAT 100
== END 2020-06-02 02:34 | disposition home or self-care (01) ==
PROVIDERS: Emergency Provider Emergency Medicine; PCP Internal Medicine
DX: K59.00 Constipation, unspecified (principal)
CPT/HCPCS: 74019; 99283

== ENCOUNTER 2020-06-22 09:08 | Inpatient (IN) | payer OTHER, SELFPAY ==
[2020-06-22] VITALS (14 sets, daily range): BP systolic 119–150; BP diastolic 72–94; PULSE 86–139; RESP 0–27; TEMP 36–36.9; O2SAT 83–98; BMI 33.5
--- NOTE | 2020-06-22 09:14 | DI.RAD.S_ITS ---
PROCEDURE: XR CHEST 1V INDICATIONS: flu-like symptoms TECHNIQUE: One view of the chest was acquired. COMPARISON: [facility], CR, XR CHEST 1V, 05/14/2020, 22:41. [facility], CR, XR CHEST 1V, 01/05/2020, 19:25. [facility], CR, XR CHEST 2V, 01/30/2020, 11:17. FINDINGS: Surgical changes and devices: None. Lungs and pleura: Bilateral interstitial type infiltrates are seen, left worse than right. No pleural effusions or pneumothorax. Mediastinum: Mediastinal contours appear normal. Heart size is normal. Bones and chest wall: No suspicious bony lesions. Age-appropriate bony degenerative changes are seen. Overlying soft tissues appear unremarkable. IMPRESSION: Bilateral interstitial infiltrates are seen. Please consider COVID pneumonia. Dictated by: Tony Mckinney M.D. on 06/22/2020 at 9:03 Approved by: Tony Mckinney M.D. on 06/22/2020 at 9:04
--- NOTE | 2020-06-22 09:18 | ED.SOB ---
HPI - SOB/Dyspnea General Chief Complaint: Shortness of Breath/Dyspnea Stated Complaint: Weakness, Covid+ Time Seen by Provider: 06/22/20 09:08 Source: patient and EMS Mode of arrival: EMS Limitations: no limitations History of Present Illness HPI Narrative: 84-year-old male nonsmoker with history AFib on warfarin, diabetes, CHF presents by EMS due to increasing weakness and shortness or breath over the past few days. Recently tested positive for COVID, is also positive. Patient is found to have pulse ox in the low 80s on EMS arrival and with 3 L of by nasal cannula improved to the mid 90s. He becomes profoundly short of breath with minimal exertion. He has had nausea but denies any vomiting or diarrhea. He has had constipation, this is chronic for him and he has been seen in the emergency department multiple times for this. He denies any chest pain. His called EMS because he has become too weak and short of breath with minimal exertion at home when she can no longer care for him. He does not use home oxygen MD Complaint: shortness of breath Onset (ago): day(s) Context: recent illness Severity: moderate Consistency/Duration: constant Relieving factors: oxygen and rest Exacerbating factors: exertion Known history of: congestive heart failure and diabetes Associated symptoms: fever, cough and wheezing Treatment prior to arrival: oxygen Related Data Home oxygen amount: none Home Medications Medication Instructions Recorded Confirmed tramadol 100 mg PO QID PRN #0 02/03/16 01/06/20 levothyroxine 50 mcg PO MOTUWETHFRSA 09/16/17 01/06/20 warfarin [Coumadin] 5 mg PO BEDTIME 07/20/18 01/06/20 ferrous sulfate [Iron (ferrous 325 mg PO DAILY 07/11/19 01/06/20 sulfate)] warfarin 5 mg PO QPM 01/05/20 01/05/20 docusate sodium 01/06/20 ferrous sulfate, dried 01/06/20 furosemide 01/06/20 Previous Rx's Medication Instructions Recorded digoxin 0.125 mg PO DAILY #30 tab 10/01/19 metoprolol tartrate 12.5 mg PO BID #30 tab 10/01/19 midodrine 5 mg PO 0600,1200,1800 #15 tab 10/01/19 doxycycline hyclate 100 mg PO BID #20 tab 03/03/21 Allergies Allergy/AdvReac Type Severity Reaction Status Date / Time Penicillins Allergy Unknown Verified 06/22/20 09:32 Review of Systems Constitutional Constitutional: Reports body ache(s), Reports chills, Reports fatigue, Reports fever(s), Denies frequent falls, Denies lethargy and Reports weakness Eyes Eyes: Denies change in vision, Denies eye discharge, Denies irritation and Denies loss of vision ENT Ears, Nose, Mouth, and Throat: Denies change in voice, Denies dizziness, Denies neck pain, Denies sore throat and Denies throat swelling Cardiovascular Cardiovascular: Denies chest pain, Denies irregular heart rhythm, Denies lightheadedness, Denies palpitations, Reports dyspnea, Reports dyspnea on exertion and Denies orthopnea Respiratory Respiratory: Reports cough, Reports dyspnea, Reports dyspnea on exertion and Reports wheezing Gastrointestinal Gastrointestinal: Denies abdominal pain, Denies change in bowel habits, Reports constipation, Denies diarrhea, Reports nausea and Denies vomiting Musculoskeletal Musculoskeletal: Denies neck pain and Denies numbness Integumentary/Breasts Skin/Breast: Denies pruritus, Denies erythema, Denies rash and Denies wounds Neurologic Neurologic: Denies behavioral changes, Denies confusion, Denies dizziness, Denies frequent falls, Denies loss of vision, Denies numbness and Reports weakness Psychiatric Psychiatric: Denies anxiety, Denies behavioral changes, Denies confusion, Denies depression, Denies homicidal ideation and Denies suicidal ideation Endocrine Endocrine: Reports fatigue, Denies flushing and Denies palpitations Hematologic/Lymphatic Hematologic/Lymphatic: Denies easy bruising Allergic/Immunologic Allergic/Immunologic: Denies urticaria, Denies throat swelling and Reports wheezing Patient History Medical History Cancer of left ear Chronic atrial fibrillation with RVR Diabetes E coli infection Hernia of abdominal cavity Hypothyroidism Inguinal hernia bilateral, non-recurrent Melanoma Prostate cancer Right eye injury Surgical History History of throat surgery History of transurethral resection of prostate Status post bilateral hernia repair Social History household members: spouse and children Smoking Status: Never smoker alcohol intake: never Smoking Status: Never smoker alcohol intake frequency: other Substance Use Type: does not use Exam Narrative Exam Narrative: GENERAL: [84] year old patient appears stated age. Well-nourished, well-developed patient, in moderate distress, some increased work of breathing though no obvious conversational dyspnea HEAD: Atraumatic. Normocephalic. EYES: Pupils equal round and reactive. Extraocular motions intact. No scleral icterus. No injection or drainage. ENT: Nose without bleeding, purulent drainage. Throat without erythema, tonsillar hypertrophy or exudate. Airway patent. NECK: Trachea midline. Non tender CARDIOVASCULAR: Regular rate and rhythm without murmurs, gallops, or rubs. RESPIRATORY: Decreased breath sounds bilaterally with prolonged expiratory phase, faint crackles throughout GASTROINTESTINAL: Abdomen soft, non-tender, nondistended. EXTREMITIES: No edema or joint tenderness. BACK: Nontender without deformity or crepitance. No flank tenderness. NEURO: AOx3. SKIN: No rash or erythema of visible areas Initial Vital Signs Initial Vital Signs: Vital Signs Temperature 98.5 F 06/22/20 09:26 Pulse Rate 130 H 06/22/20 09:26 Respiratory Rate 24 06/22/20 09:26 Blood Pressure 123/79 06/22/20 09:26 Pulse Oximetry 89 L 06/22/20 09:26 Course Orders Ordered: ED Orders 06/22/20 09:13 EKG-12 Lead Stat 06/22/20 09:14 XR chest 1V Stat 06/22/20 09:30 Blood Culture Stat C-Reactive Protein Quant Stat Complete Blood Count AUTO DIFF Stat Comprehensive Metabolic Panel Stat D Dimer Stat Ferritin Stat Lactate (Lactic Acid) Stat Lactate Dehydrogenase Stat NT-proBNP (BNP-Adult 18+) Stat Procalcitonin Stat Troponin & CK Cardiac Panel Stat 06/22/20 09:40 Arterial Blood Gas Stat 06/22/20 09:53 COVID19 - ADMIT (BUS[employer] QUALITY [employer]URANCE ANALYST swab/PCR) Stat Discontinued Medications Dexamethasone (Dexamethasone 10 Mg/Ml Vial) 6 mg IV NOW ONE Stop: 06/22/20 09:14 Last Admin: 06/22/20 09:27 Dose: 6 mg Documented by: Remdesivir 200 mg/ Sodium (Chloride) 250 mls @ 250 mls/hr IV NOW ONE Stop: 06/22/20 09:14 Last Infusion: 06/22/20 10:45 Dose: Infused Documented by: Vital Signs Vital signs: Vital Signs - 8 hr 06/22/20 09:26 06/22/20 09:33 Temperature 98.5 F 98.5 F Pulse Rate 130 H 116 H Respiratory Rate 24 24 Blood Pressure 123/79 123/79 Pulse Oximetry 89 L 97 MDM - SOB/Dyspnea Lab Data Result diagrams: 06/22/20 09:30 06/22/20 09:30 Labs: Lab Results 06/22/20 06/22/20 06/22/20 Range/Units 09:30 09:30 09:30 WBC 8.0 (4.5-11.0) X10^3/uL RBC 3.91 L (4.5-5.9) X10^6/uL Hgb 11.5 L (13.5-17.5) g/dL Hct 34.3 L (41-53) % MCV 87.7 (80-100) fL MCH 29.3 (26-34) PG MCHC 33.4 (30-36) % RDW 14.4 (11.6-14.8) % Plt Count 152 (150-400) X10^3/uL Neut % (Auto) 85.6 H (50-75) % Lymph % (Auto) 10.8 L (25-40) % [place] % (Auto) 3.3 (3-14) % Eos % (Auto) 0.1 L (2-4) % Baso % (Auto) 0.2 (0-2) % Neut # (Auto) 6900 (1549-0818) /uL Lymph # (Auto) 900 L (9851-2716) /uL [place] # (Auto) 300 (0-900) /uL Eos # (Auto) 0 (0-450) /uL Baso # (Auto) 0 (0-100) /uL D-Dimer 686 H (<230) ng/mL ABG pH (7.35-7.45) ABG pCO2 (35-45) mmHg ABG pO2 (80-100) mmHg ABG HCO3 (22-26) mmol/L ABG Total CO2 (21-31) mmol/L ABG O2 Saturation (95-100) % ABG Base Excess (-2-2) mmol/L FiO2 Sodium (137-145) mmol/L Potassium (3.4-5.1) mmol/L Chloride (98-107) mmol/L Carbon Dioxide (22-32) mmol/L BUN (9-20) mg/dL Creatinine (0.66-1.25) mg/dL Estimated GFR (>60) mL/min BUN/Creatinine Ratio (6-22) Glucose (80-110) mg/dL Lactate (0.7-2.1) mmol/L Calcium (8.4-10.2) mg/dL Total Bilirubin (0.2-1.3) mg/dL AST (17-59) IU/L ALT (<50) IU/L Alkaline Phosphatase (38-126) U/L Lactate Dehydrogenase (313-618) U/L Total Creatine Kinase (55-170) U/L CK-MB (CK-2) CK-MB (CK-2) Rel Index Troponin I (0.01-0.034) ng/mL C-Reactive Protein (<1.0) mg/dL NT-Pro-B Natriuret Pep (<450) pg/mL Total Protein (6.3-8.2) g/dL Albumin (3.5-5.0) g/dL Globulin (1.7-4.1) g/dL Albumin/Globulin Ratio (1.0-2.8) Procalcitonin 0.42 (<0.5) ng/mL 06/22/20 06/22/20 06/22/20 Range/Units 09:30 09:30 09:40 WBC (4.5-11.0) X10^3/uL RBC (4.5-5.9) X10^6/uL Hgb (13.5-17.5) g/dL Hct (41-53) % MCV (80-100) fL MCH (26-34) PG MCHC (30-36) % RDW (11.6-14.8) % Plt Count (150-400) X10^3/uL Neut % (Auto) (50-75) % Lymph % (Auto) (25-40) % [place] % (Auto) (3-14) % Eos % (Auto) (2-4) % Baso % (Auto) (0-2) % Neut # (Auto) (2677-8535) /uL Lymph # (Auto) (0716-5781) /uL [place] # (Auto) (0-900) /uL Eos # (Auto) (0-450) /uL Baso # (Auto) (0-100) /uL D-Dimer (<230) ng/mL ABG pH 7.46 H (7.35-7.45) ABG pCO2 29.2 L (35-45) mmHg ABG pO2 69 L (80-100) mmHg ABG HCO3 21 L (22-26) mmol/L ABG Total CO2 22 (21-31) mmol/L ABG O2 Saturation 95 (95-100) % ABG Base Excess -3.0 L (-2-2) mmol/L FiO2 33 Sodium 138 (137-145) mmol/L Potassium 4.3 (3.4-5.1) mmol/L Chloride 106 (98-107) mmol/L Carbon Dioxide 26 (22-32) mmol/L BUN 25 H (9-20) mg/dL Creatinine 1.49 H (0.66-1.25) mg/dL Estimated GFR 44.9 L (>60) mL/min BUN/Creatinine Ratio 16.8 (6-22) Glucose 199 H (80-110) mg/dL Lactate 2.1 (0.7-2.1) mmol/L Calcium 8.7 (8.4-10.2) mg/dL Total Bilirubin 1.6 H (0.2-1.3) mg/dL AST 98 H (17-59) IU/L ALT 50 H (<50) IU/L Alkaline Phosphatase 92 (38-126) U/L Lactate Dehydrogenase 1004 H (313-618) U/L Total Creatine Kinase 95 (55-170) U/L CK-MB (CK-2) TNP CK-MB (CK-2) Rel Index TNP Troponin I 0.038 H (0.01-0.034) ng/mL C-Reactive Protein 18.1 H (<1.0) mg/dL NT-Pro-B Natriuret Pep 4640 H (<450) pg/mL Total Protein 6.8 (6.3-8.2) g/dL Albumin 3.5 (3.5-5.0) g/dL Globulin 3.3 (1.7-4.1) g/dL Albumin/Globulin Ratio 1.1 (1.0-2.8) Procalcitonin (<0.5) ng/mL Imaging Data Chest x-ray: Radiologist's Impression: [facility] [place] [id number] ReportSigned Patient: Marty Heard FMR#: [id number]: 6Acct:[id number]/Sex: 84 / MDate of Service: 06/22/20Loc: EDAccession Number: [id number] Procedure: XR chest 1V Ordering Provider: Adam Majano D.O. PROCEDURE: XR CHEST 1V INDICATIONS: flu-like symptoms TECHNIQUE: One view of the chest was acquired. COMPARISON: [facility], CR, XR CHEST 1V, 05/14/2020, 22:41. [facility], CR, XR CHEST 1V, 01/05/2020, 19:25. [facility], CR, XR CHEST 2V, 01/30/2020, 11:17. FINDINGS: Surgical changes and devices: None. Lungs and pleura: Bilateral interstitial type infiltrates are seen, left worse than right. No pleural effusions or pneumothorax. Mediastinum: Mediastinal contours appear normal. Heart size is normal. Bones and chest wall: No suspicious bony lesions. Age-appropriate bony degenerative changes are seen. Overlying soft tissues appear unremarkable. IMPRESSION: Bilateral interstitial infiltrates are seen. Please consider COVID pneumonia. Dictated by: Tony Mckinney M.D. on 06/22/2020 at 9:03 Approved by: Tony Mckinney M.D. on 06/22/2020 at 9:04 [facility] Narrative Medical decision making narrative: Patient with hypoxemic respiratory failure, cough, fever, chills, and known COVID 19. Improves with nasal cannula. No pain. No ischemic change on EKG. D Dimer slightly elevated, but negative for PE cut off when correcting for age and most likely secondary to COVID. Fluids kept at minimum given hx of CHF and primary diagnosis of COVID 19. Discharge Plan Departure Patient Disposition: Admitted As Inpatient Clinical Impression: Acute hypoxemic respiratory failure, COVID-19 Admit Date/Time: 06/22/20 10:32 Admit Provider: Adonay Vaca
[2020-06-22] MEDS: DEXAMETHASONE 10 MG/ML VIAL 6 MG IV (09:27)
[2020-06-22] MEDS: REMDESIVIR 200 MG in SODIUM CHLORIDE 0.9% 210 ML 250 ML IV (09:36)
--- NOTE | 2020-06-22 09:47 | PC.NURSE ---
89% o2 on RA. Placed on NC at 3L
[2020-06-22 09:54] LABS: HCO3 ABG 21 mmol/L (22-26); Oxygen Saturation ABG 95 % (95-100); PCO2 ABG 29.2 mmHg (35-45); TCO2 ABG 22 mmol/L (21-31); pH ABG 7.46 (7.35-7.45)
[2020-06-22 09:54] LABS: Add Manual Diff / Slide Review NO; Basophils Absolute Auto 0 /uL (0-100); Basophils Percent Auto 0.2 % (0-2); Eosinophils Absolute Auto 0 /uL (0-450); Eosinophils Percent Auto 0.1 % (2-4); Hematocrit 34.3 % (41-53); Hemoglobin 11.5 g/dL (13.5-17.5); Lymphocytes Absolute Auto 900 /uL (1100-4500); Lymphocytes Percent Auto 10.8 % (25-40); Mean Corpuscular HGB Conc 33.4 % (30-36); Mean Corpuscular Hemoglobin 29.3 PG (26-34); Mean Corpuscular Volume 87.7 fL (80-100); Monocytes Absolute Auto 300 /uL (0-900); Monocytes Percent Auto 3.3 % (3-14); Neutrophils Absolute Auto 6900 /uL (1500-7000); Neutrophils Percent Auto 85.6 % (50-75); Platelet Count 152 X10^3/uL (150-400); Red Blood Cell Count 3.91 X10^6/uL (4.5-5.9); Red Cell Distribution Width 14.4 % (11.6-14.8)
[2020-06-22 09:55] LABS: Fractionated Inspired Oxygen 33
[2020-06-22 09:56] LABS: PO2 ABG 69 mmHg (80-100)
[2020-06-22 10:13] LABS: Lactate (Lactic Acid) 2.1 mmol/L (0.7-2.1)
[2020-06-22 10:17] LABS: Alanine Aminotransferase 50 IU/L (<50); Albumin 3.5 g/dL (3.5-5.0); Albumin Globulin Ratio 1.1 (1.0-2.8); Alkaline Phosphatase 92 U/L (38-126); Aspartate Aminotransferase 98 IU/L (17-59); BUN Creatinine Ratio 16.8 (6-22); Bilirubin Total 1.6 mg/dL (0.2-1.3); Blood Urea Nitrogen 25 mg/dL (9-20); Calcium 8.7 mg/dL (8.4-10.2); Carbon Dioxide 26 mmol/L (22-32); Chloride 106 mmol/L (98-107); Creatine Kinase 95 U/L (55-170); Estimated Glomerular Filt Rate 44.9 mL/min (>60); Globulin 3.3 g/dL (1.7-4.1); Glucose 199 mg/dL (80-110); HEMOLYSIS < 15 (0-50); Lactate Dehydrogenase 1004 U/L (313-618); Potassium 4.3 mmol/L (3.4-5.1); Sodium 138 mmol/L (137-145); Total Protein 6.8 g/dL (6.3-8.2)
[2020-06-22 10:27] LABS: NT-proBNP (BNP-Adult 18+) 4640 pg/mL (<450); Troponin I 0.038 ng/mL (0.01-0.034)
[2020-06-22 10:31] LABS: D Dimer 686 ng/mL (<230)
[2020-06-22 10:33] LABS: C-Reactive Protein Quant 18.1 mg/dL (<1.0); Procalcitonin 0.42 ng/mL (<0.5)
[2020-06-22 11:28] LABS: COVID19 - ADMIT (NP swab/PCR) POSITIVE (Negative)
[2020-06-22 11:34] LABS: Ferritin 1270 ng/mL (18-464)
[2020-06-22 11:35] LABS: INR 2.1 (0.9-1.3); Prothrombin Time 23.5 SECONDS (10.1-12.7)
[2020-06-22 11:46] LABS: Reflexed Lactate in 2 Hours Y
--- NOTE | 2020-06-22 12:40 | P.HP_ITS ---
History of Present Illness History of Present Illness Chief complaint: Weakness, Covid+ Narrative: Mr. Heard is an 84-year-old male with a past medical history of atrial fibrillation, diabetes type 2, hypothyroidism, CKD stage 3, orthostatic hypotension who comes in with shortness of breath. Patient apparently had been diagnosed with COVID approximately 1 week ago on June 14 [facility]. Since then she has been at home and he says that he has been having worsening shortness of breath. He has who is also positive for COVID who just was released from the hospital. He was not having significant coughing, not having significant fevers, he did have some nausea but was having no vomiting or diar radha. He has had constipation which is his baseline. Apparently he has been struggling with getting sleep recently. Because of his worsening symptoms EMS was called and initially found him to have O2 saturation in the low 80s was placed on nasal cannula at 3 L. In the ER workup was done he was noted to be afebrile with normal blood pressures he was in tachycardic in the 100s to 120s in atrial fibrillation and he was noted to have mild tachypnea. Labs were drawn and he was noted to have a normal white count with low lymphocytes. Mildly low hemoglobin 11.5. INR of 2.1 and D-dimer of 686. Creatinine was 1.49, ferritin 1270, bilirubin 1.6, AST and ALT were mildly elevated, LDH was 1004, troponin was 0.038, CRP 18.1, and BNP was 4640. His COVID test was positive, and his chest x-ray showed bilateral interstitial infiltrates. In the ER he was given gentle fluids, given IV dexamethasone, and IV remdesivir and he was admitted for further treatment. Patient History Medical History Cancer of left ear Chronic atrial fibrillation with RVR Diabetes E coli infection Hernia of abdominal cavity Hypothyroidism Inguinal hernia bilateral, non-recurrent Melanoma Prostate cancer Right eye injury Surgical History History of throat surgery History of transurethral resection of prostate Status post bilateral hernia repair Family & Social History Social History: household members spouse,children Safety & Behavioral: Feels Safe in Current Yes Environment Been Physically Hurt or No Threatened By a Person Tobacco & Substance use: Smoking Status Never smoker alcohol intake never alcohol intake frequency 0-2 drinks per day Substance Use Type does not use Meds Home Medications and Allergies Home Medications Medication Instructions Recorded Confirmed Type tramadol 100 mg PO QID PRN #0 02/03/16 06/22/20 History levothyroxine 50 mcg PO MOTUWETHFRSA 09/16/17 06/22/20 History warfarin [Coumadin] 5 mg PO BEDTIME 07/20/18 01/06/20 History ferrous sulfate [Iron (ferrous 325 mg PO DAILY 07/11/19 06/22/20 History sulfate)] digoxin 0.125 mg PO DAILY #30 tab 10/01/19 06/22/20 Rx metoprolol tartrate 12.5 mg PO BID #30 tab 10/01/19 06/22/20 Rx midodrine 5 mg PO 0600,1200,1800 #15 tab 10/01/19 06/22/20 Rx warfarin 5 mg PO QPM 01/05/20 06/22/20 History docusate sodium 01/06/20 History ferrous sulfate, dried 01/06/20 History furosemide 80 mg PO DAILY 01/06/20 06/22/20 History doxycycline hyclate 100 mg PO BID #20 tab 05/15/20 06/22/20 Rx Allergies Allergy/AdvReac Type Severity Reaction Status Date / Time Penicillins Allergy Unknown Verified 06/22/20 09:32 Review of Systems Review of Systems Narrative: 14 systems reviewed and negative aside from what is noted in HPI Exam Vital Signs (past 8 hours): - 06/22/20 09:26 06/22/20 09:33 06/22/20 09:36 Temperature 98.5 F 98.5 F Pulse Rate 130 H 116 H 139 H Respiratory Rate 24 24 27 H Blood Pressure 123/79 123/79 Pulse Oximetry 89 L 97 97 06/22/20 10:00 06/22/20 10:30 06/22/20 11:00 Temperature Pulse Rate 118 H 118 H 110 H Respiratory Rate 18 16 20 Blood Pressure Pulse Oximetry 85 L 97 06/22/20 11:15 06/22/20 11:27 06/22/20 11:30 Temperature Pulse Rate 113 H 107 H 119 H Respiratory Rate 0 L 26 H Blood Pressure 139/72 150/94 H Pulse Oximetry 83 L 98 06/22/20 12:00 Temperature Pulse Rate 107 H Respiratory Rate 20 Blood Pressure 140/84 Pulse Oximetry 98 Oxygen Delivery Method Room Air,Nasal Cannula Oxygen Flow Rate 3 Narrative Exam Narrative: General: Elderly ill-appearing man, appears fatigued, mild distress from shortness of breath HEENT: Has moist mucous membranes, trachea midline, no JVD Cardiovascular irregularly irregular, tachycardic, no murmurs Pulmonary has coarse breath sounds bilaterally with poor air movement Abdomen soft nontender nondistended, no organomegaly, normal bowel sounds In skin: Has scattered ecchymoses on his extremities Neuro he is awake alert and oriented, but does appear to be very fatigued Extremities he has slight swelling to his feet which he describes is baseline Psych he is cooperative very fatigued Objective Labs Result Diagrams: 06/22/20 09:30 06/22/20 09:30 Labs: Laboratory Results - last 24 hr 06/22/20 06/22/20 06/22/20 09:30 09:30 09:30 WBC 8.0 RBC 3.91 L Hgb 11.5 L Hct 34.3 L MCV 87.7 MCH 29.3 MCHC 33.4 RDW 14.4 Plt Count 152 Neut % (Auto) 85.6 H Lymph % (Auto) 10.8 L [place] % (Auto) 3.3 Eos % (Auto) 0.1 L Baso % (Auto) 0.2 Neut # (Auto) 6900 Lymph # (Auto) 900 L [place] # (Auto) 300 Eos # (Auto) 0 Baso # (Auto) 0 PT INR D-Dimer 686 H ABG pH ABG pCO2 ABG pO2 ABG HCO3 ABG Total CO2 ABG O2 Saturation ABG Base Excess FiO2 Sodium Potassium Chloride Carbon Dioxide BUN Creatinine Estimated GFR BUN/Creatinine Ratio Glucose Lactate Calcium Ferritin Total Bilirubin AST ALT Alkaline Phosphatase Lactate Dehydrogenase Total Creatine Kinase CK-MB (CK-2) CK-MB (CK-2) Rel Index Troponin I C-Reactive Protein NT-Pro-B Natriuret Pep Total Protein Albumin Globulin Albumin/Globulin Ratio Procalcitonin 0.42 SARS-CoV-2 (PCR) 06/22/20 06/22/20 06/22/20 09:30 09:30 09:30 WBC RBC Hgb Hct MCV MCH MCHC RDW Plt Count Neut % (Auto) Lymph % (Auto) [place] % (Auto) Eos % (Auto) Baso % (Auto) Neut # (Auto) Lymph # (Auto) [place] # (Auto) Eos # (Auto) Baso # (Auto) PT 23.5 H INR 2.1 H D-Dimer ABG pH ABG pCO2 ABG pO2 ABG HCO3 ABG Total CO2 ABG O2 Saturation ABG Base Excess FiO2 Sodium 138 Potassium 4.3 Chloride 106 Carbon Dioxide 26 BUN 25 H Creatinine 1.49 H Estimated GFR 44.9 L BUN/Creatinine Ratio 16.8 Glucose 199 H Lactate 2.1 Calcium 8.7 Ferritin 1270 H Total Bilirubin 1.6 H AST 98 H ALT 50 H Alkaline Phosphatase 92 Lactate Dehydrogenase 1004 H Total Creatine Kinase 95 CK-MB (CK-2) TNP CK-MB (CK-2) Rel Index TNP Troponin I 0.038 H C-Reactive Protein 18.1 H NT-Pro-B Natriuret Pep 4640 H Total Protein 6.8 Albumin 3.5 Globulin 3.3 Albumin/Globulin Ratio 1.1 Procalcitonin SARS-CoV-2 (PCR) 06/22/20 06/22/20 09:40 09:55 WBC RBC Hgb Hct MCV MCH MCHC RDW Plt Count Neut % (Auto) Lymph % (Auto) [place] % (Auto) Eos % (Auto) Baso % (Auto) Neut # (Auto) Lymph # (Auto) [place] # (Auto) Eos # (Auto) Baso # (Auto) PT INR D-Dimer ABG pH 7.46 H ABG pCO2 29.2 L ABG pO2 69 L ABG HCO3 21 L ABG Total CO2 22 ABG O2 Saturation 95 ABG Base Excess -3.0 L FiO2 33 Sodium Potassium Chloride Carbon Dioxide BUN Creatinine Estimated GFR BUN/Creatinine Ratio Glucose Lactate Calcium Ferritin Total Bilirubin AST ALT Alkaline Phosphatase Lactate Dehydrogenase Total Creatine Kinase CK-MB (CK-2) CK-MB (CK-2) Rel Index Troponin I C-Reactive Protein NT-Pro-B Natriuret Pep Total Protein Albumin Globulin Albumin/Globulin Ratio Procalcitonin SARS-CoV-2 (PCR) Positive H Assessment & Plan Assessment & Plan narrative: Mr. dale 84-year-old man past medical history of AFib, hypothyroidism, type 2 diabetes, CKD stage 3, orthostatic hypotension is coming in with acute respiratory failure from COVID pneumonia. 1. Acute respiratory failure from from COVID pneumonia -has positive COVID test, has desaturations on room air to the 80s, and chest x- ray supports diagnosis of pneumonia -has already received the IV remdesivir and IV dexamethasone in the ER -will continue to treat him with scheduled daily dexamethasone 6 mg and remdesivir 100 mg daily -will encourage the patient to self prone -has very elevated inflammatory markers with elevated CRP, BMP, ferritin, LFTs, LDH, and troponin and will continue to trend these lab values for now daily -did discuss with patient about plans of care with decompensation and he is unable to make up his mind about possible care at this time, did discuss with who was not aware of patient over expressing goals of care, discussed with the son Beka who is also on sugar but who is his POA and believes that he would w ant to be full code 2. AFib with RVR -EKG shows AFib and his heart rate has been on telemetry from the 100s to 120s -will continue him on his home dose of digoxin and will increase his metoprolol slightly given that it is acutely ill state will likely need increased medications to control his AFib -will continue him on his home dose of warfarin, INR shows good control 3. Type 2 diabetes -will continue him on insulin sliding scale for now -may need additional insulin coverage given that he was starting him on dexamethasone and he is acutely ill 4. CKD stage 3 -patient today has creatinine of 1.5. To be near his baseline will attempt to avoid any significant fluid shifts, and avoid nephrotoxins 5. Orthostatic hypertension -will continue on his midodrine for now 6. Hypothyroidism -continue him on his home dose of Synthroid 7. Anemia -anemia with a hemoglobin of 11.5 will continue to trend for now Diet: Heart healthy DVT prophylaxis: Continue full-dose warfarin IVF: For now hold on fluids given patient's respiratory status Code status was attempted to be discussed with patient, son, and all of who are unsure what code status would be at this time but for now requesting full code. Son Beka is POA with phone number [phone]. Quality MIPS - Admit I confirm the patient?s Advance Care Plan is present, Code status is documented, Surrogate decision maker is in patient?s record [If Yes, STOP here]: Yes
[2020-06-22] MEDS: LEVOTHYROXINE 50 MCG TABLET PO (13:06)
[2020-06-22] MEDS: METOPROLOL IR 25 MG TABLET PO ×2 (13:06→19:53)
[2020-06-22] MEDS: MIDODRINE HCL 5 MG TABLET PO ×2 (13:06→17:06)
[2020-06-22] MEDS: DIGOXIN 0.125 MG TABLET PO (13:06)
[2020-06-22] MEDS: ACETAMINOPHEN 325 MG TABLET 650 MG PO (13:07)
[2020-06-22] MEDS: INSULIN ASPART 100 UNIT/ML INSULN PEN SUBCUT ×3 (13:07→19:52)
[2020-06-22 14:06] LABS: Lactate 2HR (Lactic Acid Rflx) 1.6 mmol/L (0.7-2.1)
[2020-06-22] MEDS: WARFARIN 5 MG TABLET PO (17:06)
[2020-06-22] MEDS: TAMSULOSIN 0.4 MG CAPSULE PO (21:02)
[2020-06-23] VITALS (10 sets, daily range): BP systolic 104–136; BP diastolic 60–100; PULSE 77–103; RESP 15–22; TEMP 36.3–36.7; O2SAT 93–96
[2020-06-23 05:31] LABS: Add Manual Diff / Slide Review NO; Basophils Absolute Auto 0 /uL (0-100); Basophils Percent Auto 0.1 % (0-2); Eosinophils Absolute Auto 0 /uL (0-450); Hematocrit 33.2 % (41-53); Lymphocytes Absolute Auto 500 /uL (1100-4500); Lymphocytes Percent Auto 6.7 % (25-40); Mean Corpuscular HGB Conc 33.1 % (30-36); Mean Corpuscular Hemoglobin 29.2 PG (26-34); Mean Corpuscular Volume 88.1 fL (80-100); Monocytes Absolute Auto 200 /uL (0-900); Monocytes Percent Auto 2.6 % (3-14); Neutrophils Absolute Auto 6500 /uL (1500-7000); Neutrophils Percent Auto 90.6 % (50-75); Platelet Count 153 X10^3/uL (150-400); Red Blood Cell Count 3.77 X10^6/uL (4.5-5.9); Red Cell Distribution Width 14.5 % (11.6-14.8); White Blood Cell Count 7.2 X10^3/uL (4.5-11.0)
[2020-06-23 05:41] LABS: BUN Creatinine Ratio 26.9 (6-22); Blood Urea Nitrogen 36 mg/dL (9-20); Calcium 8.6 mg/dL (8.4-10.2); Carbon Dioxide 24 mmol/L (22-32); Chloride 106 mmol/L (98-107); Estimated Glomerular Filt Rate 50.8 mL/min (>60); Glucose 288 mg/dL (80-110); HEMOLYSIS < 15 (0-50); Potassium 4.7 mmol/L (3.4-5.1); Sodium 138 mmol/L (137-145)
[2020-06-23 05:53] LABS: Alanine Aminotransferase 42 IU/L (<50); Alkaline Phosphatase 86 U/L (38-126); Aspartate Aminotransferase 73 IU/L (17-59); Bilirubin Total 0.8 mg/dL (0.2-1.3); Bilirubin Unconjugated 0.6 mg/dL (0.0-1.1); Globulin 3.1 g/dL (1.7-4.1); HEMOLYSIS < 15 (0-50); Lactate Dehydrogenase 875 U/L (313-618); Total Protein 6.1 g/dL (6.3-8.2)
[2020-06-23 06:00] LABS: NT-proBNP (BNP-Adult 18+) 4660 pg/mL (<450)
[2020-06-23 06:05] LABS: C-Reactive Protein Quant 21.3 mg/dL (<1.0)
[2020-06-23] MEDS: MIDODRINE HCL 5 MG TABLET PO ×3 (06:44→17:21)
[2020-06-23 06:56] LABS: Enterococcus species Not Detected (Not Detect); Listeria monocytogenes Not Detected (Not Detect)
[2020-06-23 06:58] LABS: Acinetobacter baumannii Not Detected (Not Detect); Candida albicans Not Detected (Not Detect); Candida glabrata Not Detected (Not Detect); Candida krusei Not Detected (Not Detect); Candida parapsilosis Not Detected (Not Detect); Candida tropicalis Not Detected (Not Detect); E. coli Not Detected (Not Detect); Enterobacter cloacae complex Not Detected (Not Detect); Enterobacteriaceae species Not Detected (Not Detect); Haemophilus influenzae Not Detected (Not Detect); Methicillin-resistant gene Detected (Not Detect); Neisseria meningitidis Not Detected (Not Detect); Proteus species Not Detected (Not Detect); Pseudomonas aeruginosa Not Detected (Not Detect); Serratia marcescens Not Detected (Not Detect); Staphylococcus species Detected (Not Detect); Streptococcus agalactiae (Gr B Not Detected (Not Detect); Streptococcus pneumonia Not Detected (Not Detect); Streptococcus pyogenes (Gr A) Not Detected (Not Detect); Streptococcus species Not Detected (Not Detect)
[2020-06-23 07:11] LABS: Ferritin 1130 ng/mL (18-464)
[2020-06-23] MEDS: VANCOMYCIN 2,000 MG/400 ML PIGGYBACK 200 MG IV (09:00)
[2020-06-23] MEDS: LEVOTHYROXINE 100 MCG TABLET PO (09:26)
[2020-06-23] MEDS: DEXAMETHASONE 10 MG/ML VIAL 6 MG IV (09:28)
[2020-06-23] MEDS: DIGOXIN 0.125 MG TABLET PO (09:28)
[2020-06-23] MEDS: METOPROLOL IR 25 MG TABLET PO ×2 (09:29→21:20)
[2020-06-23] MEDS: INSULIN ASPART 100 UNIT/ML INSULN PEN SUBCUT ×4 (09:30→21:22)
[2020-06-23] MEDS: INSULIN GLARGINE 100 UNIT/ML 3ML PEN 10 UNIT SUBCUT (11:40)
--- NOTE | 2020-06-23 13:24 | CM.DANOTE ---
DCP: Case received, EMR reviewed spoke to patient over the phone from his room. Patient is COVID positive, and is on precautions. Introduced self and role over the phone. Was able to obtain information from patient regarding his baseline activity status prior to hospitalization, as well as his current living situation. Patient is an 84 year old male who admitted yesterday morning to the care of the hospitalist team. PCP: Lakisha Dangelo. Payer: [facility]. Patient came to the hospital via ambulance secondary to having weakness and shortness of breath. He is COVID positive. had COVID at one time as well. According to patient, they contacted it from their son. Patient is on oxygen at this time, holds diagnosis of COVID Pneumonia, as evidenced by bilateral infiltrates. Spoke with patient over the phone. He mentioned that their son, Jason, is no longer living with them. Stated, they turned him out, he gave them COVID from not attempting to use precautions. He mentioned that his does have some dementia, but has been able to manage at home. 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 He uses a FWW at his baseline. Mentioned that he has used [facility] before, but sometimes it's hard to get people into my home because my is paranoid about strangers coming in. He stated, he would consider using [facility] again if needed. He mentioned, he is starting to feel better. P: DCP to continue to follow closely. Patient is wanting to go home when he is better to be with his . Can look into [facility], nursing, and therapy may be beneficial for patient. Marya Sol RN/[facility]
--- NOTE | 2020-06-23 15:01 | PC.NURSE ---
Addendum entered by Emmie Warren R.N. 06/23/20 15:04: +3 edema pitting to B feet. Greater on L side. LS Course. Pt having SOB with activity. Continuous monitoring. Original Note: Pt A&Ox3. VSS, afebrile 02 sats 95% on 3L NC. denies pain without movement however slightly turning or attempting to recline flat in bed, he hollers and grimaces with back pain. BCX drawn this a.m. prior to Vanco dose hung. Tolerated Vanco IV abx without s/sx of ASE.Pt with good Po intake this shift. BG 300's, New orders received for lantus 10 units today. Pt needing q 2 hour turning, and feet elevation.
[2020-06-23] MEDS: WARFARIN 5 MG TABLET PO (17:20)
[2020-06-23] MEDS: TRAMADOL 50 MG TABLET 25 MG PO ×2 (17:27→21:19)
--- NOTE | 2020-06-23 17:40 | P.PN_ITS ---
Subjective Subjective Interval history: Today he feels quite improved. His shortness of breath is slightly better. But he has much less fatigue. No other concerns. Exam Vital Signs (past 8 hours): - 06/23/20 11:35 06/23/20 15:40 Temperature 97.3 F L 97.6 F Pulse Rate 95 H 94 H Respiratory Rate 20 19 Blood Pressure 114/73 107/60 Pulse Oximetry 95 95 Oxygen Delivery Method Nasal Cannula Oxygen Flow Rate 3 Narrative Exam Narrative: General: Elderly man, mild distress from shortness of breath, much more awake HEENT: Has moist mucous membranes, trachea midline, no JVD Cardiovascular irregularly irregular, tachycardic, no murmurs Pulmonary has coarse breath sounds bilaterally with poor air movement Abdomen soft nontender nondistended, no organomegaly, normal bowel sounds Skin: Has scattered ecchymoses on his extremities Neuro: he is awake alert and oriented, moving all extremities grossly Extremities: he has slight swelling to his feet which he describes is baseline Psych: he is cooperative, pleasant Objective Labs Result Diagrams: 06/23/20 05:00 06/23/20 05:00 Labs: Laboratory Results - last 24 hr 06/22/20 06/23/20 06/23/20 09:46 05:00 05:00 WBC 7.2 RBC 3.77 L Hgb 11.0 L Hct 33.2 L MCV 88.1 MCH 29.2 MCHC 33.1 RDW 14.5 Plt Count 153 Neut % (Auto) 90.6 H Lymph % (Auto) 6.7 L [place] % (Auto) 2.6 L Eos % (Auto) 0.0 L Baso % (Auto) 0.1 Neut # (Auto) 6500 Lymph # (Auto) 500 L [place] # (Auto) 200 Eos # (Auto) 0 Baso # (Auto) 0 Sodium 138 Potassium 4.7 Chloride 106 Carbon Dioxide 24 BUN 36 H Creatinine 1.34 H Estimated GFR 50.8 L BUN/Creatinine Ratio 26.9 H Glucose 288 H Calcium 8.6 Ferritin Total Bilirubin Conjugated Bilirubin Unconjugated Bilirubin AST ALT Alkaline Phosphatase Lactate Dehydrogenase C-Reactive Protein NT-Pro-B Natriuret Pep Total Protein Albumin Globulin Albumin/Globulin Ratio A. baumannii (PCR) Not detected Key albicans (PCR) Not detected C. glabrata (PCR) Not detected C. krusei (PCR) Not detected C. parapsilosis (PCR) Not detected C. tropicalis (PCR) Not detected Enterobacteriac sp PCR Not detected E. cloacae complex PCR Not detected Enterococcus sp PCR Not detected E. coli (PCR) Not detected H. influenzae (PCR) Not detected Klebsiella oxytoca PCR Not detected Klebsiella pneumoniae Not detected List. monocytogenes PCR Not detected N. meningitidis (PCR) Not detected Proteus species (PCR) Not detected Serratia marcescens PCR Not detected Staphylococcus sp PCR Detected H Staph aureus (PCR) Not detected mecA-Methicil Res Gene Detected H Streptococcus sp PCR Not detected Group A Strep (PCR) Not detected Strep agalactiae (PCR) Not detected Strep pneumoniae (PCR) Not detected P. aeruginosa (PCR) Not detected Tracie/B-Vanco Res Genes Not Reportable KPC-Carbap Res Gene PCR Not Reportable 06/23/20 05:00 WBC RBC Hgb Hct MCV MCH MCHC RDW Plt Count Neut % (Auto) Lymph % (Auto) [place] % (Auto) Eos % (Auto) Baso % (Auto) Neut # (Auto) Lymph # (Auto) [place] # (Auto) Eos # (Auto) Baso # (Auto) Sodium Potassium Chloride Carbon Dioxide BUN Creatinine Estimated GFR BUN/Creatinine Ratio Glucose Calcium Ferritin 1130 H Total Bilirubin 0.8 Conjugated Bilirubin 0.0 Unconjugated Bilirubin 0.6 AST 73 H ALT 42 Alkaline Phosphatase 86 Lactate Dehydrogenase 875 H C-Reactive Protein 21.3 H NT-Pro-B Natriuret Pep 4660 H Total Protein 6.1 L Albumin 3.0 L Globulin 3.1 Albumin/Globulin Ratio 1.0 A. baumannii (PCR) Key albicans (PCR) C. glabrata (PCR) C. krusei (PCR) C. parapsilosis (PCR) C. tropicalis (PCR) Enterobacteriac sp PCR E. cloacae complex PCR Enterococcus sp PCR E. coli (PCR) H. influenzae (PCR) Klebsiella oxytoca PCR Klebsiella pneumoniae List. monocytogenes PCR N. meningitidis (PCR) Proteus species (PCR) Serratia marcescens PCR Staphylococcus sp PCR Staph aureus (PCR) mecA-Methicil Res Gene Streptococcus sp PCR Group A Strep (PCR) Strep agalactiae (PCR) Strep pneumoniae (PCR) P. aeruginosa (PCR) Tracie/B-Vanco Res Genes KPC-Carbap Res Gene PCR [facility] Medical History Cancer of left ear Chronic atrial fibrillation with RVR Diabetes E coli infection Hernia of abdominal cavity Hypothyroidism Inguinal hernia bilateral, non-recurrent Melanoma Prostate cancer Right eye injury Surgical History History of throat surgery History of transurethral resection of prostate Status post bilateral hernia repair Social History household members: spouse and children Smoking Status: Never smoker alcohol intake: never Assessment & Plan Assessment & Plan narrative: Mr. Heard 84-year-old man past medical history of AFib, hypothyroidism, type 2 diabetes, CKD stage 3, orthostatic hypotension is coming in with acute respiratory failure from COVID pneumonia. 1. Acute respiratory failure from from COVID pneumonia -has positive COVID test, has desaturations on room air to the 80s, and chest x- ray supports diagnosis of pneumonia with bilateral interstitial infiltrates -has already received the IV remdesivir and IV dexamethasone in the ER -will continue to treat him with scheduled daily dexamethasone 6 mg, stop remdesivir due to transaminitis -will encourage the patient to self prone -has very elevated inflammatory markers with elevated CRP, BMP, ferritin, LFTs, LDH, and troponin, but on 06/23 only crp was more elevated -did discuss with patient about plans of care with decompensation and he is unable to make up his mind about possible care at this time, did discuss with who was not aware of patient over expressing goals of care, discussed with the son Beka who is also his POA and believes that he would want to be full code 2. Staph positive blood cultures -noted on morning of 06/23 -started vancomycin on 06/23 -repeat blood cultures on 06/23 -spoke with pharmacy who believes this is staph epi -concerned this is not a contaminant as appears to be positive cx in 06/16 bottles on 06/22 -repeat cultures 06/24 2. AFib with RVR -EKG shows AFib and his heart rate has been on telemetry from the 100s to 120s on admission -will continue him on his home dose of digoxin and will increase his metoprolol slightly given that it is acutely ill state will likely need increased medications to control his AFib -will continue him on his home dose of warfarin, INR shows good control -rate improved with increased metoprolol 3. Type 2 diabetes -will continue him on insulin sliding scale for now -may need additional insulin coverage given that he was starting him on dexamethasone and he is acutely ill -blood sugars elevated on 06/24, gave 10U lantus -appears has been controlled in past on 25U BID lantus, patient still unclear of dose 4. CKD stage 3 -on admission has creatinine of 1.5 now to 1.34. To continue near baseline will attempt to avoid any significant fluid shifts, and avoid nephrotoxins 5. Orthostatic hypertension -will continue on his midodrine for now 6. Hypothyroidism -continue him on his home dose of Synthroid 7. Anemia -anemia with a hemoglobin of 11.5 will continue to trend for now -baseline appearts to be near 11- Diet: Heart healthy DVT prophylaxis: Continue full-dose warfarin IVF: For now hold on fluids given patient's respiratory status Code status was attempted to be discussed with patient, son, and all of who are unsure what code status would be at this time but for now requesting full code. Son Beka is POA with phone number [phone].
--- NOTE | 2020-06-23 19:39 | PC.NURSE ---
A/O x3, COVID-19 positive with droplet isolation, 95% 3L nc, bilat LL course, SOB with exertion, denies SOB at rest. Slightly tachycardic, 2 to 3+ kayla edema to left foot, needs elevation. Pt needs help with turning and able to prone/right side for 1hr this shift. C/O 5/10 to 7/10 chronic back pain, tramadol 25mg given. Garcia in place and draining clear saji urine. FRED and LAC both SL. BG @ 1630 - 398, 8 units insulin intervention. Tele in place with A-fib BBB 100. BT + denies nausea. Pt is MAX assist/mitchel. SCD's on, call light in reach, no further needs at this time.
[2020-06-23] MEDS: INSULIN GLARGINE 100 UNIT/ML 3ML PEN 25 UNIT SUBCUT (21:22)
[2020-06-24] VITALS (8 sets, daily range): BP systolic 110–140; BP diastolic 67–81; PULSE 81–107; RESP 16–20; TEMP 36.4–36.7; O2SAT 88–93
[2020-06-24] MEDS: INSULIN ASPART 100 UNIT/ML INSULN PEN SUBCUT ×4 (04:09→21:30)
[2020-06-24 04:30] LABS: Hematocrit 32.4 % (41-53); Hemoglobin 10.7 g/dL (13.5-17.5); Mean Corpuscular Hemoglobin 29.2 PG (26-34); Mean Corpuscular Volume 88.6 fL (80-100); Platelet Count 181 X10^3/uL (150-400); Red Blood Cell Count 3.65 X10^6/uL (4.5-5.9); Red Cell Distribution Width 14.3 % (11.6-14.8); White Blood Cell Count 8.9 X10^3/uL (4.5-11.0)
[2020-06-24 04:41] LABS: INR 2.8 (0.9-1.3); Prothrombin Time 31.8 SECONDS (10.1-12.7)
[2020-06-24 04:45] LABS: BUN Creatinine Ratio 28.8 (6-22); Blood Urea Nitrogen 42 mg/dL (9-20); Calcium 8.6 mg/dL (8.4-10.2); Carbon Dioxide 25 mmol/L (22-32); Chloride 106 mmol/L (98-107); Glucose 324 mg/dL (80-110); HEMOLYSIS < 15 (0-50); Potassium 4.5 mmol/L (3.4-5.1); Sodium 137 mmol/L (137-145)
[2020-06-24] MEDS: MIDODRINE HCL 5 MG TABLET PO ×3 (05:56→19:21)
[2020-06-24] MEDS: LEVOTHYROXINE 50 MCG TABLET PO (05:56)
[2020-06-24] MEDS: POLYVINYL ALCOHOL DROPS 1 DROPS EYE-BOTH (05:57)
[2020-06-24] MEDS: INSULIN GLARGINE 100 UNIT/ML 3ML PEN 25 UNIT SUBCUT (08:46)
[2020-06-24] MEDS: SENNOSIDES 8.6 MG TABLET PO (08:49)
[2020-06-24] MEDS: DEXAMETHASONE 10 MG/ML VIAL 6 MG IV (08:49)
[2020-06-24] MEDS: METOPROLOL IR 25 MG TABLET PO ×2 (08:49→21:40)
[2020-06-24] MEDS: DIGOXIN 0.125 MG TABLET PO (08:49)
[2020-06-24] MEDS: VANCOMYCIN 2,000 MG/400 ML PIGGYBACK 150 MG IV (08:50)
[2020-06-24] MEDS: TRAMADOL 50 MG TABLET 25 MG PO ×4 (08:53→21:40)
--- NOTE | 2020-06-24 16:13 | P.PN_ITS ---
Subjective Subjective Date Patient Seen: 06/24/20 Time Patient Seen: 16:13 Interval history: This is an 84-year-old male with multiple medical comorbidities admitted for COVID-19 pneumonia. He continues to feel improved and his shortness of breath continues to improve. He has not had a bowel movement in multiple days. He has not really gotten up to ambulate, but feels no shortness of breath at rest. He is still requiring minimal supplemental oxygen and during my evaluation nose able to turn him down to 1 L. on room air he did desaturate to 87%. Exam Vital Signs (past 8 hours): - 06/24/20 08:54 06/24/20 11:50 06/24/20 15:30 Temperature 97.6 F 97.7 F Pulse Rate 96 H 102 H Respiratory Rate 18 20 Blood Pressure 120/74 117/67 Pulse Oximetry 92 92 93 Oxygen Delivery Method Nasal Cannula Oxygen Flow Rate 3 Narrative Exam Narrative: General: Elderly man, mild distress from shortness of breath, much more awake HEENT: Has moist mucous membranes, trachea midline, no JVD Cardiovascular irregularly irregular, tachycardic, no murmurs Pulmonary has coarse breath sounds bilaterally with poor air movement Abdomen soft nontender nondistended, no organomegaly, normal bowel sounds Skin: Has scattered ecchymoses on his extremities Neuro: he is awake alert and oriented, moving all extremities grossly Extremities: he has slight swelling to his feet which he describes is baseline Psych: he is cooperative, pleasant Objective Labs Result Diagrams: 06/24/20 03:55 06/24/20 03:55 Labs: Laboratory Results - last 24 hr 06/24/20 06/24/20 06/24/20 03:55 03:55 03:55 WBC 8.9 RBC 3.65 L Hgb 10.7 L Hct 32.4 L MCV 88.6 MCH 29.2 MCHC 33.0 RDW 14.3 Plt Count 181 PT 31.8 H D INR 2.8 H Sodium 137 Potassium 4.5 Chloride 106 Carbon Dioxide 25 BUN 42 H Creatinine 1.46 H Estimated GFR 46.0 L BUN/Creatinine Ratio 28.8 H Glucose 324 H Calcium 8.6 PFSH Medical History Cancer of left ear Chronic atrial fibrillation with RVR Diabetes E coli infection Hernia of abdominal cavity Hypothyroidism Inguinal hernia bilateral, non-recurrent Melanoma Prostate cancer Right eye injury Surgical History History of throat surgery History of transurethral resection of prostate Status post bilateral hernia repair Social History household members: spouse and children Smoking Status: Never smoker alcohol intake: never Assessment & Plan Assessment & Plan narrative: Mr. Heard 84-year-old man past medical history of AFib, hypothyroidism, type 2 diabetes, CKD stage 3, orthostatic hypotension is coming in with acute respiratory failure from COVID pneumonia. 1. Acute respiratory failure from from COVID pneumonia -has positive COVID test, has desaturations on room air to the 80s, and chest x- ray supports diagnosis of pneumonia with bilateral interstitial infiltrates -has already received the IV remdesivir and IV dexamethasone in the ER -will continue to treat him with scheduled daily dexamethasone 6 mg, stopped remdesivir due to transaminitis -will encourage the patient to self prone -has very elevated inflammatory markers with elevated CRP, BMP, ferritin, LFTs, LDH, and troponin, but on 06/23 only crp was more elevated -did discuss with patient about plans of care with decompensation and he is unable to make up his mind about possible care at this time, did discuss with who was not aware of patient over expressing goals of care, discussed with the son Beka who is also his POA and believes that he would want to be full code 2. Staph positive blood cultures -noted on morning of 06/23 -started vancomycin on 06/23 -repeat blood cultures on 06/23 so far negative -spoke with pharmacy who believes this is staph epi -cultures positive in 2/4 bottles per reports thus far, culture from same day without growth. -will await final cultures, continue vanco at this time, but assume contaminant. 2. AFib with RVR -EKG shows AFib and his heart rate has been on telemetry from the 100s to 120s on admission -will continue him on his home dose of digoxin and will increase his metoprolol slightly given that it is acutely ill state will likely need increased medications to control his AFib -will continue him on his home dose of warfarin, INR shows good control -rate improved with increased metoprolol 3. Type 2 diabetes -will continue him on insulin sliding scale for now -may need additional insulin coverage given that he was starting him on dexamethasone and he is acutely ill, still uncontrolled after 25 U BID yesterday. Will increase today to 30 U BID. 4. CKD stage 3 -on admission has creatinine of 1.5 now to 1.34. To continue near baseline will attempt to avoid any significant fluid shifts, and avoid nephrotoxins 5. Orthostatic hypertension -will continue on his midodrine for now 6. Hypothyroidism -continue him on his home dose of Synthroid 7. Anemia -anemia with a hemoglobin of 11.5 will continue to trend for now -baseline appearts to be near 11-12 Diet: Heart healthy DVT prophylaxis: Continue full-dose warfarin IVF: For now hold on fluids given patient's respiratory status Code status was attempted to be discussed with patient, son, and all of who are unsure what code status would be at this time but for now requesting full code. Son Beka is POA with phone number [phone].
[2020-06-24] MEDS: WARFARIN 5 MG TABLET PO (17:47)
[2020-06-24] MEDS: INSULIN GLARGINE 100 UNIT/ML 3ML PEN 30 UNIT SUBCUT (21:30)
--- NOTE | 2020-06-24 23:23 | PC.NURSE ---
Pt SOB w/excertion, SpO2 94-96% on 3L Lungs course, throughout. AC CBG = 317; HS = 288 coverage given accordingly Tele A-fib/BBB per ICU staff. Call light w/in reach, bed alarm on for pt safety. Continue w/plan of care.
[2020-06-25] VITALS (19 sets, daily range): BP systolic 105–167; BP diastolic 69–97; PULSE 75–115; RESP 16–35; TEMP 36.4–37; O2SAT 91–96
--- NOTE | 2020-06-25 02:13 | PC.NURSE ---
Addendum entered by Yanely Brown R.N. 06/25/20 06:00: 0400 Report given to Mer, POWDER WORKER, and patient transported to room 231. Original Note: patient is alert and oriented. Breath sounds coarse throughout and diminished in right LL. Initially on entry to room sat was 86-88% on oxygen at 2L/min but dropped down to 81% with conversation. Gradually increased oxygen to get sat > 93% as per order and ended up on 11L/min oxygen. Alfonzo MARIE, informed and RT contacted to evaluate. RT now has patient on 40L HHF NC/45% Fi02 with sat at 93%. Alfonzo MARIE, discussed with RT and ordered ABG to be done after 30 minutes. Is on continuous oximetry to continue monitoring sats. HR irregular and telemetry reading was afib CVR w/BBB. Denies nausea. BT present and abdomen is soft. Indwelling catheter is patent; urine is clear yellow. 2+ bilateral LE edema. Chronic neuropathy in bilateral LE from toe to below knee. Wearing bilateral calf SCD's. Denies pain. Unwilling to try proning due to chronic back problems but agreeable to turning onto right side and tilting to bed. Is being repositioned q2h. Remains on airborne precautions due to being COVID positive and now on aerosolized treatment. Fall risk score is high and bed alarm is activated.
[2020-06-25 03:20] LABS: Fractionated Inspired Oxygen 45; HCO3 ABG 20 mmol/L (22-26); Oxygen Saturation ABG 95 % (95-100); PCO2 ABG 27.8 mmHg (35-45); PO2 ABG 72 mmHg (80-100); TCO2 ABG 21 mmol/L (21-31); pH ABG 7.46 (7.35-7.45)
--- NOTE | 2020-06-25 03:50 | PM.EVENT ---
Event Note Event Note: Notified of patient requiring 11 liters. Requested consult and evaluation by RT. He has been put on heated high flow and I was requested to place into the ICU per COVID-19 protocol.
[2020-06-25 04:57] LABS: Add Manual Diff / Slide Review NO; Basophils Absolute Auto 100 /uL (0-100); Basophils Percent Auto 0.5 % (0-2); Eosinophils Absolute Auto 0 /uL (0-450); Hematocrit 33.4 % (41-53); Hemoglobin 11.1 g/dL (13.5-17.5); Lymphocytes Absolute Auto 500 /uL (1100-4500); Lymphocytes Percent Auto 5.3 % (25-40); Mean Corpuscular HGB Conc 33.3 % (30-36); Mean Corpuscular Hemoglobin 29.3 PG (26-34); Mean Corpuscular Volume 87.8 fL (80-100); Monocytes Absolute Auto 500 /uL (0-900); Monocytes Percent Auto 5.2 % (3-14); Neutrophils Absolute Auto 8700 /uL (1500-7000); Platelet Count 214 X10^3/uL (150-400); Red Blood Cell Count 3.81 X10^6/uL (4.5-5.9); Red Cell Distribution Width 14.1 % (11.6-14.8); White Blood Cell Count 9.8 X10^3/uL (4.5-11.0)
[2020-06-25 05:19] LABS: Alanine Aminotransferase 51 IU/L (<50); Albumin 2.9 g/dL (3.5-5.0); Alkaline Phosphatase 78 U/L (38-126); Aspartate Aminotransferase 98 IU/L (17-59); BUN Creatinine Ratio 31.2 (6-22); Bilirubin Total 0.7 mg/dL (0.2-1.3); Bilirubin Unconjugated 0.5 mg/dL (0.0-1.1); Blood Urea Nitrogen 44 mg/dL (9-20); Calcium 8.6 mg/dL (8.4-10.2); Carbon Dioxide 22 mmol/L (22-32); Chloride 106 mmol/L (98-107); Estimated Glomerular Filt Rate 47.9 mL/min (>60); Glucose 221 mg/dL (80-110); HEMOLYSIS 20 (0-50); Magnesium 2.1 mg/dL (1.6-2.3); Potassium 4.9 mmol/L (3.4-5.1); Sodium 134 mmol/L (137-145); Total Protein 5.9 g/dL (6.3-8.2)
[2020-06-25] MEDS: ACETAMINOPHEN 325 MG TABLET 650 MG PO (05:48)
[2020-06-25] MEDS: MIDODRINE HCL 5 MG TABLET PO ×3 (05:48→18:18)
[2020-06-25] MEDS: LEVOTHYROXINE 50 MCG TABLET PO (05:48)
--- NOTE | 2020-06-25 06:29 | PC.NURSE ---
Patient brought ICU room 231 from room 219, remains in airborne isolation. A/Ox4, mildly anxious and fearful, conversing without desatting, HHFNC set at 40L/.45 FIO2, RR 20s, lung sounds dim with underlying coarseness, no cough. Educated patient on importance of proning, he states that's not happening but is open to trying do side-lying after breakfast
[2020-06-25 07:57] LABS: Lactate Dehydrogenase 1007 U/L (313-618)
[2020-06-25] MEDS: INSULIN GLARGINE 100 UNIT/ML 3ML PEN 30 UNIT SUBCUT (08:26)
[2020-06-25] MEDS: INSULIN ASPART 100 UNIT/ML INSULN PEN SUBCUT ×4 (08:26→21:29)
[2020-06-25] MEDS: VANCOMYCIN 2,000 MG/400 ML PIGGYBACK 200 MG IV (08:26)
[2020-06-25] MEDS: TRAMADOL 50 MG TABLET 25 MG PO ×2 (08:27→12:35)
[2020-06-25] MEDS: SENNOSIDES 8.6 MG TABLET PO (08:28)
[2020-06-25] MEDS: DEXAMETHASONE 10 MG/ML VIAL 6 MG IV (08:28)
[2020-06-25] MEDS: DIGOXIN 0.125 MG TABLET PO (08:28)
[2020-06-25] MEDS: METOPROLOL IR 25 MG TABLET PO ×2 (08:28→21:31)
[2020-06-25] MEDS: SODIUM CHLORIDE 0.9% FLUSH 10 ML IV ×2 (08:29→21:32)
[2020-06-25 08:33] LABS: Ferritin 704 ng/mL (18-464)
--- NOTE | 2020-06-25 09:14 | DIET.PN ---
Dietary Progress Note RD Note: Pt to receive ONS Ensure Max c lunches to support high protein needs in bariatric friendly formula. Following pts renal fxn.
--- NOTE | 2020-06-25 11:56 | PT-IP ANOTE ---
per rounds: pt on hold for PT arelyal. talked with nurse and stated that they are focusing on oxygenation at this point. pt was doing well yesterday but has having problems with oxygen level at this time. nurse stated that pt is on hold for today and to check back tomorrow.
--- NOTE | 2020-06-25 14:02 | PC.NURSE ---
Day Shift Note Alert and oriented x3, did have period of disorientation after sleeping, stated he was at home, removing oxygen and pulse ox, and exhibited difficulty following directions. Pt expressed I was disoriented once fully awake and is now able to accurately state where he is and the current plan of care. Continues on heated HFNC 40L and FiO2 45%, oxygen sats 91-93% when side lying and 95-98% when sitting up for meals. Discussed importance of proning but pt states I can't do that because of my back. Agreeable to side lying when not eating. Denies shortness of breath. 2+ edema to BLEs, erythemic and warm to the touch. Garcia in place and draining clear yellow urine. Call light within reach, using appropriately to make needs known.
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
--- NOTE | 2020-06-25 14:37 | PM.PN.1 ---
Subjective Subjective Date Patient Seen: 06/25/20 Time Patient Seen: 14:37 Interval history: This is an 84-year-old male with multiple medical comorbidities admitted for COVID-19 pneumonia. He had been improving clinically but overnight decompensated and was moved to an ICU room for continued heated high-flow which he required to maintain adequate oxygen saturations. He was slightly confused this morning but had not been sleeping well. After he was able to sleep some his confusion had improved. His inflammatory markers are largely improved today with the exception of his LDH which is slightly increased. He denies any chest pain, palpitations. He feels no shortness of breath at rest. He denies any back pain as well today, but he has not moved much. Exam Vital Signs (past 8 hours): - 06/25/20 07:00 06/25/20 08:40 06/25/20 09:00 Temperature 98.6 F Pulse Rate 102 H 108 H 115 H Respiratory Rate 17 35 H 21 Blood Pressure 135/77 135/77 154/75 H Pulse Oximetry 92 92 92 06/25/20 10:58 06/25/20 12:00 Temperature 97.8 F Pulse Rate 87 80 Respiratory Rate 20 20 Blood Pressure 154/75 H 105/72 Pulse Oximetry 92 92 Fraction of Inspired Oxygen 0.45 Oxygen Delivery Method Heated High Flow Oxygen Flow Rate 40 Narrative Exam Narrative: General: Elderly man, no acute distress comfortable on heated hi flow nasal cannula, much more awake HEENT: Has moist mucous membranes, trachea midline, no JVD Cardiovascular irregularly irregular, tachycardic, no murmurs Pulmonary has coarse breath sounds bilaterally with poor air movement Abdomen soft nontender nondistended, no organomegaly, normal bowel sounds Skin: Has scattered ecchymoses on his extremities Neuro: he is awake alert and oriented, moving all extremities grossly Extremities: he has slight swelling to his feet which he describes is baseline, no tenderness. Chronic venous stasis changes bilaterally. Psych: he is cooperative, pleasant Objective Labs Result Diagrams: 06/25/20 04:30 06/25/20 04:30 Labs: Laboratory Results - last 24 hr 06/25/20 06/25/20 06/25/20 03:04 04:30 04:30 WBC 9.8 RBC 3.81 L Hgb 11.1 L Hct 33.4 L MCV 87.8 MCH 29.3 MCHC 33.3 RDW 14.1 Plt Count 214 Neut % (Auto) 89.0 H Lymph % (Auto) 5.3 L [place] % (Auto) 5.2 Eos % (Auto) 0.0 L Baso % (Auto) 0.5 Neut # (Auto) 8700 H Lymph # (Auto) 500 L [place] # (Auto) 500 Eos # (Auto) 0 Baso # (Auto) 100 ABG pH 7.46 H ABG pCO2 27.8 L ABG pO2 72 L ABG HCO3 20 L ABG Total CO2 21 ABG O2 Saturation 95 ABG Base Excess -4.0 L FiO2 45 Sodium 134 L Potassium 4.9 Chloride 106 Carbon Dioxide 22 BUN 44 H Creatinine 1.41 H Estimated GFR 47.9 L BUN/Creatinine Ratio 31.2 H Glucose 221 H D Calcium 8.6 Magnesium 2.1 Ferritin Total Bilirubin 0.7 Conjugated Bilirubin 0.0 Unconjugated Bilirubin 0.5 AST 98 H ALT 51 H Alkaline Phosphatase 78 Lactate Dehydrogenase Total Protein 5.9 L Albumin 2.9 L Globulin 3.0 Albumin/Globulin Ratio 1.0 Nasal Screen MRSA (PCR) 06/25/20 06/25/20 04:30 06:59 WBC RBC Hgb Hct MCV MCH MCHC RDW Plt Count Neut % (Auto) Lymph % (Auto) [place] % (Auto) Eos % (Auto) Baso % (Auto) Neut # (Auto) Lymph # (Auto) [place] # (Auto) Eos # (Auto) Baso # (Auto) ABG pH ABG pCO2 ABG pO2 ABG HCO3 ABG Total CO2 ABG O2 Saturation ABG Base Excess FiO2 Sodium Potassium Chloride Carbon Dioxide BUN Creatinine Estimated GFR BUN/Creatinine Ratio Glucose Calcium Magnesium Ferritin 704 H Total Bilirubin Conjugated Bilirubin Unconjugated Bilirubin AST ALT Alkaline Phosphatase Lactate Dehydrogenase 1007 H Total Protein Albumin Globulin Albumin/Globulin Ratio Nasal Screen MRSA (PCR) [facility] for mrsa [facility] Medical History Cancer of left ear Chronic atrial fibrillation with RVR Diabetes E coli infection Hernia of abdominal cavity Hypothyroidism Inguinal hernia bilateral, non-recurrent Melanoma Prostate cancer Right eye injury Surgical History History of throat surgery History of transurethral resection of prostate Status post bilateral hernia repair Social History household members: spouse Smoking Status: Never smoker alcohol intake: never Assessment & Plan Assessment & Plan narrative: Mr. Heard 84-year-old man past medical history of AFib, hypothyroidism, type 2 diabetes, CKD stage 3, orthostatic hypotension is coming in with acute respiratory failure from COVID pneumonia. 1. Acute respiratory failure from from COVID pneumonia -has positive COVID test, has desaturations on room air to the 80s, and chest x-ray supports diagnosis of pneumonia with bilateral interstitial infiltrates. Yesterday he was down to as little as 1 L of supplemental oxygen, but decompensated overnight requiring heated high-flow. He is stable this morning but appears more acutely ill. -has already received the IV remdesivir and IV dexamethasone in the ER -will continue to treat him with scheduled daily dexamethasone 6 mg, stopped remdesivir due to transaminitis and clinical improvement. However will restart today given clinical worsening. -will encourage the patient to self prone, though he cannot with his chronic back pain. -has very elevated inflammatory markers with elevated CRP, BMP, ferritin, LFTs, LDH, and troponin, but on 06/23 only crp was more elevated. 2. Staph positive blood cultures, presumed contaminant -noted on morning of 06/23, started vancomycin on 06/23 -repeat blood cultures on 06/23 so far negative -cultures positive in 2/4 bottles per reports thus far, culture bottles from same day without growth. Repeat blood cultures also negative. -final cultures have grown Staph epi. Presume this to be a contaminant, will stop antibiotics today. 2. Chronic AFib with RVR, RVR resolved -EKG shows AFib and his heart rate has been on telemetry from the 100s to 120s on admission, has now improved. -will continue him on his home dose of digoxin and will increase his metoprolol slightly given that it is acutely ill state will likely need increased medications to control his AFib -will continue him on his home dose of warfarin, INR shows good control -rate improved with increased metoprolol 3. Type 2 diabetes -will continue him on insulin sliding scale for now -may need additional insulin coverage given that he was starting him on dexamethasone and he is acutely ill, still uncontrolled after 30 U BID yesterday. Will increase today to 35 U BID. 4. CKD stage 3 -on admission has creatinine of 1.5 and has been stable thus far. 5. Orthostatic hypertension -will continue on his midodrine for now 6. Hypothyroidism -continue him on his home dose of Synthroid 7. Anemia -anemia with a hemoglobin of 11.5 will continue to trend for now -baseline appearts to be near 11-12 Diet: Heart healthy DVT prophylaxis: Continue full-dose warfarin Code status was attempted to be discussed with patient, son, and all of who are unsure what code status would be at this time but for now requesting full code. Son Beka is POA with phone number [phone].
--- NOTE | 2020-06-25 14:46 | DI.RAD.S_ITS ---
PROCEDURE: XR CHEST 1V INDICATIONS: increased O2 requirements, COVID + TECHNIQUE: One view of the chest was acquired. COMPARISON: [facility], CR, XR CHEST 1V, 06/22/2020, 9:27. [facility], CR, XR CHEST 1V, 05/14/2020, 22:41. FINDINGS: Surgical changes and devices: None. Lungs and pleura: Lungs are abnormal, with patchy bilateral alveolar airspace disease consistent with atypical/viral pneumonia. No pleural effusions or pneumothorax. Mediastinum: Mediastinal contours appear normal. Heart size is normal. Bones and chest wall: No suspicious bony lesions. Overlying soft tissues appear unremarkable. IMPRESSION: Stable viral pneumonia pattern, given the presence of patchy bilateral alveolitis that is moderately severe. A source of increased oxygen requirements is not found. Dictated by: Riki Navarro M.D. on 06/25/2020 at 15:19 Approved by: Riki Navarro M.D. on 06/25/2020 at 15:20
[2020-06-25] MEDS: REMDESIVIR 100 MG in SODIUM CHLORIDE 0.9% 230 ML 250 ML IV (15:55)
[2020-06-25] MEDS: WARFARIN 5 MG TABLET PO (18:18)
--- NOTE | 2020-06-25 20:20 | PC.NURSE ---
dietary called and order placed for pt breakfast tomorrow
[2020-06-25] MEDS: INSULIN GLARGINE 100 UNIT/ML 3ML PEN 35 UNIT SUBCUT (21:31)
--- NOTE | 2020-06-25 22:59 | PC.NURSE ---
Addendum entered by Muriel Ridley R.N. 06/25/20 23:06: Patient occasionally fidgets and removes prongs of nasal cannula from one or both nares. Pt is on 40L and 45% (mistyped in original note.) Original Note: Patient had relatively uneventful shift. Pt is on heated high flow nasal cannula at 45L and 40% FiO2 maintaining oxygen saturations in the low to mid 90s. Encouraged side lying positions, but patient was reluctant to move even though he denied back pain. Garcia catheter in place draining clear yellow to saji urine. Pt lung sounds diminished, 2+ nonpitting edema present to bilateral lower extremities. Pt was alert and oriented x3 until about 2200 when pt became disoriented to situation. Still is very pleasant and overall cooperative. Both IVs to the right upper arm and right antecubital removed on this shift due to non-patent IV site and accidental removal by patient. New 20g to left forearm placed, second IV placement attempted at 2230, two attempts unsuccessful. Pt ate about 50% of his dinner.
[2020-06-26] VITALS (19 sets, daily range): BP systolic 122–149; BP diastolic 71–85; PULSE 61–112; RESP 16–24; TEMP 36.5–36.9; O2SAT 92–97
[2020-06-26 05:13] LABS: Add Manual Diff / Slide Review NO; Basophils Absolute Auto 0 /uL (0-100); Basophils Percent Auto 0.3 % (0-2); Eosinophils Absolute Auto 0 /uL (0-450); Eosinophils Percent Auto 0.1 % (2-4); Hematocrit 33.7 % (41-53); Hemoglobin 11.1 g/dL (13.5-17.5); Lymphocytes Absolute Auto 600 /uL (1100-4500); Lymphocytes Percent Auto 7.6 % (25-40); Mean Corpuscular HGB Conc 32.8 % (30-36); Mean Corpuscular Hemoglobin 28.9 PG (26-34); Mean Corpuscular Volume 88.1 fL (80-100); Monocytes Absolute Auto 600 /uL (0-900); Monocytes Percent Auto 6.8 % (3-14); Neutrophils Absolute Auto 7000 /uL (1500-7000); Neutrophils Percent Auto 85.2 % (50-75); Platelet Count 223 X10^3/uL (150-400); Red Blood Cell Count 3.82 X10^6/uL (4.5-5.9); Red Cell Distribution Width 14.5 % (11.6-14.8); White Blood Cell Count 8.2 X10^3/uL (4.5-11.0)
[2020-06-26 05:23] LABS: Prothrombin Time 66.1 SECONDS (10.1-12.7)
[2020-06-26 05:24] LABS: INR 5.9 (0.9-1.3)
[2020-06-26 05:31] LABS: Alanine Aminotransferase 87 IU/L (<50); Albumin 2.8 g/dL (3.5-5.0); Albumin Globulin Ratio 0.9 (1.0-2.8); Alkaline Phosphatase 82 U/L (38-126); Aspartate Aminotransferase 138 IU/L (17-59); BUN Creatinine Ratio 30.7 (6-22); Bilirubin Total 0.6 mg/dL (0.2-1.3); Bilirubin Unconjugated 0.4 mg/dL (0.0-1.1); Blood Urea Nitrogen 43 mg/dL (9-20); Calcium 8.7 mg/dL (8.4-10.2); Carbon Dioxide 26 mmol/L (22-32); Chloride 107 mmol/L (98-107); Estimated Glomerular Filt Rate 48.3 mL/min (>60); Glucose 241 mg/dL (80-110); HEMOLYSIS < 15 (0-50); Magnesium 2.2 mg/dL (1.6-2.3); Potassium 5.2 mmol/L (3.4-5.1); Sodium 137 mmol/L (137-145); Total Protein 5.8 g/dL (6.3-8.2)
[2020-06-26] MEDS: MIDODRINE HCL 5 MG TABLET PO ×3 (06:14→18:36)
[2020-06-26 06:17] LABS: Prothrombin Time 65.7 SECONDS (10.1-12.7)
[2020-06-26 06:21] LABS: INR 6.1 (0.9-1.3)
--- NOTE | 2020-06-26 06:55 | PC.NURSE ---
Punch Operator Note-Patient was awake most of the night, no respiratory distress, forgetful and fidgeting, denies pain, declined Tramadol and melatonin. HHFNC 40L/.45 FIO2 SpO2 88-95%, will desat to 85% when he pushes NC out of nares, RR 16-24. Has been turned side to side, does reposition on own onto his back. Critical PT/INR 66.1/5.9 reported to ENTERPRISE INTEGRATION ARCHITECT, lab repeated, 65.7/6.1 reported to [employer]TER[employer] INTEGRATION ARCHITECT, patient has no s/s bleeding, Warfarin held.
--- NOTE | 2020-06-26 07:38 | PC.NURSE ---
received telephone call from Mrs. Heard and she relayed that she was told her would be d/c to home today or tomorrow and she didn't think she was ready for this and no one had contacted her re: potential discharge. Lengthy discussion assuring her that he would not be discharge to home today and would have case management contact her this am
--- NOTE | 2020-06-26 08:55 | PT-IP ANOTE ---
spoke to RN Gisell and pt is not appropriate for PT. New Critical PT/INR 66.1/5.9 & 65.7/6.1 this AM with HFNC 40-45% and desat to 85% easily. On hold for PT
[2020-06-26] MEDS: LEVOTHYROXINE 50 MCG TABLET PO (08:56)
[2020-06-26] MEDS: INSULIN ASPART 100 UNIT/ML INSULN PEN SUBCUT ×4 (08:56→20:02)
[2020-06-26] MEDS: INSULIN GLARGINE 100 UNIT/ML 3ML PEN 35 UNIT SUBCUT ×2 (08:58→20:03)
[2020-06-26] MEDS: SENNOSIDES 8.6 MG TABLET PO (09:01)
[2020-06-26] MEDS: TRAMADOL 50 MG TABLET 25 MG PO (09:01)
[2020-06-26] MEDS: METOPROLOL IR 25 MG TABLET PO ×2 (09:02→20:03)
[2020-06-26] MEDS: DEXAMETHASONE 10 MG/ML VIAL 6 MG IV (09:02)
[2020-06-26] MEDS: DIGOXIN 0.125 MG TABLET PO (09:02)
[2020-06-26] MEDS: SODIUM CHLORIDE 0.9% FLUSH 10 ML IV ×2 (09:03→20:03)
--- NOTE | 2020-06-26 09:26 | RT ---
Patient eating breakfast currently. Have set up equipment for HFNC and will see if patient can be weaned from HHFNC after breakfast. Chikis Duffy, JANITOR AND CLEANER
--- NOTE | 2020-06-26 10:34 | PC.NURSE ---
Addendum entered by Gisell Rodrigues R.N. 06/26/20 11:52: PT PLACED ON 13 L O2 VIA HFNC WITH SPO2 96-98% ANTICIPATE FURTHER LOWERING OF O2 DAY PROGRESSES Original Note: PT CALM AND COOPERATIVE THIS AM- MOSTLY FLAT AFFECT, HE IS UNMOTIVATED RE: SITTING ON EOB FOR MEALS, MOVING SELF IN BED- HE REMAINS ON HHFNC AT 40L/45% WITH SPO2 92-98 DEPENDING ON ACTIVITY- CONTINUES TO BE IN AFIB CVR WITH ANTICOAGULANTS HELD TO ELEVATED INR THIS AM PER LAB- LUNGS REMAIN COARSE WITH FEW FINE CRACKLES- PT HAS DIFFICULTY WITH DEEP BREATHING, ZARCO PATENT
--- NOTE | 2020-06-26 11:42 | P.PN_ITS ---
Subjective Subjective Date Patient Seen: 06/26/20 Interval history: Patient is 84-year-old male with multiple medical comorbidities admitted for COVID-19 pneumonia. This morning he is on heated high-flow 40 liters/minute with 45% FiO2. His respiratory rate is 20. He is not feeling more short of breath and heart rate in the 90s. His INR is 6.1 and warfarin held. Exam Vital Signs (past 8 hours): - 06/26/20 04:00 06/26/20 05:00 06/26/20 06:11 Temperature Pulse Rate 92 H 67 Respiratory Rate 23 16 Blood Pressure 128/77 Pulse Oximetry 93 93 92 06/26/20 07:59 06/26/20 08:00 06/26/20 09:00 Temperature 97.8 F Pulse Rate 67 96 H Respiratory Rate 18 16 Blood Pressure 128/77 145/85 H Pulse Oximetry 95 93 96 06/26/20 09:25 Temperature Pulse Rate 112 H Respiratory Rate 20 Blood Pressure Pulse Oximetry 94 Fraction of Inspired Oxygen 0.46 Oxygen Delivery Method High Flow Nasal Cannula Oxygen Flow Rate 40 Narrative Exam Narrative: General: Elderly male who appears relatively comfortable Lungs: Clear to auscultation Heart: Irregularly irregular Abdomen: Soft Extremities: No edema Neurological: Communicative, nonfocal Objective Labs Result Diagrams: 06/26/20 04:30 06/26/20 04:30 Labs: Laboratory Results - last 24 hr 06/26/20 06/26/20 06/26/20 04:30 04:30 04:30 WBC 8.2 RBC 3.82 L Hgb 11.1 L Hct 33.7 L MCV 88.1 MCH 28.9 MCHC 32.8 RDW 14.5 Plt Count 223 Neut % (Auto) 85.2 H Lymph % (Auto) 7.6 L Childress % (Auto) 6.8 Eos % (Auto) 0.1 L Baso % (Auto) 0.3 Neut # (Auto) 7000 Lymph # (Auto) 600 L Childress # (Auto) 600 Eos # (Auto) 0 Baso # (Auto) 0 PT 66.1 H D INR 5.9 H* Sodium 137 Potassium 5.2 H Chloride 107 Carbon Dioxide 26 BUN 43 H Creatinine 1.40 H Estimated GFR 48.3 L BUN/Creatinine Ratio 30.7 H Glucose 241 H Calcium 8.7 Magnesium 2.2 Total Bilirubin 0.6 Conjugated Bilirubin 0.0 Unconjugated Bilirubin 0.4 AST 138 H ALT 87 H Alkaline Phosphatase 82 Total Protein 5.8 L Albumin 2.8 L Globulin 3.0 Albumin/Globulin Ratio 0.9 L 06/26/20 05:55 WBC RBC Hgb Hct MCV MCH MCHC RDW Plt Count Neut % (Auto) Lymph % (Auto) Childress % (Auto) Eos % (Auto) Baso % (Auto) Neut # (Auto) Lymph # (Auto) Childress # (Auto) Eos # (Auto) Baso # (Auto) PT 65.7 H INR 6.1 H* Sodium Potassium Chloride Carbon Dioxide BUN Creatinine Estimated GFR BUN/Creatinine Ratio Glucose Calcium Magnesium Total Bilirubin Conjugated Bilirubin Unconjugated Bilirubin AST ALT Alkaline Phosphatase Total Protein Albumin Globulin Albumin/Globulin Ratio PFSH Medical History Cancer of left ear Chronic atrial fibrillation with RVR Diabetes E coli infection Hernia of abdominal cavity Hypothyroidism Inguinal hernia bilateral, non-recurrent Melanoma Prostate cancer Right eye injury Surgical History History of throat surgery History of transurethral resection of prostate Status post bilateral hernia repair Social History household members: spouse Smoking Status: Never smoker alcohol intake: never Assessment & Plan Assessment & Plan narrative: Mr. Heard 84-year-old man past medical history of AFib, hypothyroidism, type 2 diabetes, CKD stage 3, orthostatic hypotension is coming in with acute respiratory failure from COVID pneumonia. 1. Acute respiratory failure from from COVID pneumonia -patient had very elevated inflammatory markers with elevated CRP, BMP, ferritin, LFTs, LDH, and troponin, -has positive COVID test, has desaturations on room air to the 80s, and chest x- ray supports diagnosis of pneumonia with bilateral interstitial infiltrates. He acutely decompensated on 06/24 and transfer to ICU on high-flow heated nasal cannula and since then his condition has been stable. -will continue to treat him with scheduled daily dexamethasone 6 mg IV q.d. and remdesivir -he has mildly elevated rising LFTs, stop remdesivir if LFTs greater than 5 times normal -patient is unable to self prone due to chronic back pain. 2. Staph positive blood cultures, presumed contaminant -noted on morning of 06/23, started vancomycin on 06/23 -repeat blood cultures on 06/23 so far negative -cultures positive in 04/18 for Staph epi -final cultures have grown Staph epi. Presume this to be a contaminant and antibiotic discontinued. 2. Chronic AFib with RVR, RVR resolved -on digoxin and metoprolol for rate control, improved HR control since increased metoprolol dose -INR 6.1 on 06/26 and warfarin held, repeat INR tomorrow -resumed home furosemide 80 mg daily 3. Type 2 diabetes -glucose improving though still above 200 -continue Lantus 35 U BID and sliding scale. 4. CKD stage 3 -on admission has creatinine of 1.5 and has been stable thus far. 5. Orthostatic hypertension -will continue on his midodrine for now 6. Hypothyroidism -continue him on his home dose of Synthroid 7. Anemia -anemia with a hemoglobin of 11.5 will continue to trend for now -baseline appearts to be near 11-12 Diet: Heart healthy DVT prophylaxis: Anticoagulated on warfarin Code status was attempted to be discussed with patient, son, and all of who are unsure what code status would be at this time but for now requesting full code. Son Beka is POA with phone number [phone].
--- NOTE | 2020-06-26 13:49 | PT-IP ANOTE ---
spoke to CHIKIS Jameson this AM and pt is not appropriate for PT today d/t New Critical PT/INR 66.1/5.9 & 65.7/6.1 this AM with HFNC 40-45% and desat to 85% easily. Both PT and INR values are significantly beyond therapeutic range (<25 & 4) for physical therapy at this point. On hold for PT until he is medically stable. Will check again tomorrow morning.
[2020-06-26] MEDS: SODIUM CHLORIDE 0.9% 250 ML 21 ML IV (14:35)
[2020-06-26] MEDS: REMDESIVIR 100 MG in SODIUM CHLORIDE 0.9% 230 ML 250 ML IV (15:32)
--- NOTE | 2020-06-26 19:37 | PC.NURSE ---
Evening shift note: Pt resting in bed, calm and cooperative, A/O x [address], has refused PT, repositioning, and to sit up in chair or side of bed for meals. He is on 13L HFNC, SpO2 95%, lungs are coarse with some fine crackles. Currently in AFIB RVR with anticoagulants held due to elevated INR in morning labs. Garcia patent, draining clear yellow urine, FSBG 315 with 10 units insulin administered prior to evening meal. PIV-SL, bed low and locked, alarm on, call light within reach, will continue to monitor.
[2020-06-26] MEDS: MELATONIN 3 MG TABLET 6 MG PO (20:03)
[2020-06-27] VITALS (18 sets, daily range): BP systolic 113–152; BP diastolic 74–93; PULSE 67–106; RESP 18–22; TEMP 36.6–36.9; O2SAT 90–98
[2020-06-27] MEDS: ACETAMINOPHEN 325 MG TABLET 650 MG PO (00:25)
[2020-06-27 05:05] LABS: Add Manual Diff / Slide Review NO; Basophils Absolute Auto 100 /uL (0-100); Basophils Percent Auto 0.6 % (0-2); Eosinophils Absolute Auto 0 /uL (0-450); Eosinophils Percent Auto 0.6 % (2-4); Hematocrit 33.2 % (41-53); Hemoglobin 10.9 g/dL (13.5-17.5); Lymphocytes Absolute Auto 700 /uL (1100-4500); Lymphocytes Percent Auto 8.7 % (25-40); Mean Corpuscular HGB Conc 32.8 % (30-36); Mean Corpuscular Hemoglobin 28.9 PG (26-34); Mean Corpuscular Volume 88.2 fL (80-100); Monocytes Absolute Auto 500 /uL (0-900); Monocytes Percent Auto 5.9 % (3-14); Neutrophils Absolute Auto 6500 /uL (1500-7000); Neutrophils Percent Auto 84.2 % (50-75); Platelet Count 248 X10^3/uL (150-400); Red Blood Cell Count 3.77 X10^6/uL (4.5-5.9); Red Cell Distribution Width 14.5 % (11.6-14.8); White Blood Cell Count 7.8 X10^3/uL (4.5-11.0)
[2020-06-27 05:13] LABS: INR 3.7 (0.9-1.3); Prothrombin Time 42.3 SECONDS (10.1-12.7)
[2020-06-27 05:18] LABS: Alanine Aminotransferase 70 IU/L (<50); Albumin 2.7 g/dL (3.5-5.0); Albumin Globulin Ratio 0.9 (1.0-2.8); Alkaline Phosphatase 78 U/L (38-126); Aspartate Aminotransferase 80 IU/L (17-59); BUN Creatinine Ratio 31.5 (6-22); Bilirubin Total 0.5 mg/dL (0.2-1.3); Bilirubin Unconjugated 0.4 mg/dL (0.0-1.1); Blood Urea Nitrogen 39 mg/dL (9-20); Calcium 8.4 mg/dL (8.4-10.2); Carbon Dioxide 25 mmol/L (22-32); Chloride 108 mmol/L (98-107); Estimated Glomerular Filt Rate 55.5 mL/min (>60); Glucose 130 mg/dL (80-110); HEMOLYSIS < 15 (0-50); Magnesium 2.3 mg/dL (1.6-2.3); Potassium 4.3 mmol/L (3.4-5.1); Sodium 138 mmol/L (137-145); Total Protein 5.7 g/dL (6.3-8.2)
--- NOTE | 2020-06-27 06:35 | PC.NURSE ---
Contact Lens Manufacturer Note-Patient was awake, mildly restless, and hungry until 0300, given sugar-free snacks, Tylenol for headache. On HFNC 13L until 0600 when RT decreased to 8L while patient was sleeping, SpO2 >94%, sats do drop to 85% when he takes cannula off. INR 3.7 this am, no s/s bleeding.
[2020-06-27] MEDS: LEVOTHYROXINE 50 MCG TABLET PO (08:43)
[2020-06-27] MEDS: SENNOSIDES 8.6 MG TABLET PO (08:44)
[2020-06-27] MEDS: TRAMADOL 50 MG TABLET 25 MG PO ×3 (08:44→20:12)
[2020-06-27] MEDS: DIGOXIN 0.125 MG TABLET PO (08:44)
[2020-06-27] MEDS: METOPROLOL IR 25 MG TABLET PO ×2 (08:44→20:13)
[2020-06-27] MEDS: DEXAMETHASONE 10 MG/ML VIAL 6 MG IV (08:45)
[2020-06-27] MEDS: SODIUM CHLORIDE 0.9% FLUSH 10 ML IV ×2 (08:46→20:30)
[2020-06-27] MEDS: MIDODRINE HCL 5 MG TABLET PO ×3 (08:50→18:00)
[2020-06-27] MEDS: INSULIN GLARGINE 100 UNIT/ML 3ML PEN 35 UNIT SUBCUT ×2 (08:51→20:14)
--- NOTE | 2020-06-27 10:01 | PC.NURSE ---
pt reports no bm since prior to admission ( 06/22/20) will discuss with MD during rounds-pt able to be weaned from 8L to 3L hfnc and current spo2 94%
[2020-06-27] MEDS: INSULIN ASPART 100 UNIT/ML INSULN PEN SUBCUT ×3 (13:21→20:14)
--- NOTE | 2020-06-27 13:55 | PT.IIE ---
Current Diagnoses COVID-19 (06/22/20) Surgical History (Last Reviewed 06/22/20 @ 12:49 by Adonay Vaca MD) History of throat surgery History of transurethral resection of prostate Status post bilateral hernia repair Medical History (Last Reviewed 06/22/20 @ 12:49 by Adonay Vaca MD) Cancer of left ear Chronic atrial fibrillation with RVR Diabetes E coli infection Hernia of abdominal cavity Hypothyroidism Inguinal hernia bilateral, non-recurrent Melanoma Prostate cancer Right eye injury Physical Therapy Inpatient Evaluation/Re-Eval M1 PT/OT-IP Prior Functional Status Start: 06/26/20 08:50 Freq: NEEDED Status: Active Protocol: Document 06/27/20 13:55 AB (Rec: 06/27/20 15:51 AB [id number]) Medical Review Prior Functional Status Medical History Reviewed Yes Communication able to make needs known Mobility and Gait pt stated that he is modified independent with all mobilities and ambulates indoors using a 4WW or a SPC depending on how he feels but uses 4WW for outdoor mobility at all times. pt stated that he has back issues that started him to use an AD Social History Household Members spouse Living Arrangements House Number of Floors (Floors) Two Floors Number of Stairs To Enter/Railing? pt stays on main level of the house; has a ramp to enter Home Environment High Toilet,Walk in Shower, Built-In Shower Seat,Ramp Home Equipment Hand Held Shower,Grab Bars Near Toilet,Grab Bars In Shower Additional Social History Comment pt has a transfer pole next to his recliner has a transfer pole on L side of the bed and R rail. M2 PT-IP Current Condition Start: 06/26/20 08:50 Freq: NEEDED Status: Active Protocol: Document 06/27/20 13:55 AB (Rec: 06/27/20 15:51 AB [email or web address]) Physical Therapy Current Condition Current Condition Evaluation Date 06/27/20 Treatment Diagnosis Covid PNA; difficulty in walking Onset Date 06/22/20 Precautions Other Precautions O2 sat; Covid + precautions M3 PT-IP Subjective Start: 06/26/20 08:50 Freq: NEEDED Status: Active Protocol: Document 06/27/20 13:55 AB (Rec: 06/27/20 15:51 AB [email or web address]) Subjective Physical Therapy Visit Type Type Initial Evaluation Visit Start Time 13:55 Visit Stop Time 14:46 Total Visit Minutes 51 Number of RESPIRATORY PHYSICIAN Visits 0 Physical Therapy Visit Comments Patient Comments pt is agreeable to do PT Therapy Pain Assessment Pain When Pain Assessed During Mobility Location Back Scale Used pain scale not stated M4 PT-IP Mobility and Gait Start: 06/26/20 08:50 Freq: NEEDED Status: Active Protocol: Document 06/27/20 13:55 AB (Rec: 06/27/20 15:51 AB [email or web address]) PT-Bed Mobility Assessment Rolling Type of Rolling Log Rolling Level of Assist Maximal Assistance Supine to Sit Supine to Sit Maximum Assistance Scooting Scooting to Edge of Bed Moderate Assistance,Maximum Assistance PT-Transfer Assessment Sit to and From Stand Sit to and from Stand Maximum Assistance,1 Person Assistance,Use of Upper Extremities Equipment Transfer Assistive Device Gait Belt,Front Wheeled Walker Orthotic/Prosthetic Devices or Brace: No Transfers Transfer Destination Chair Transfer Technique Stand Step Pivot Transfer Ability Level of Assist Maximum Assistance,1 Person Assistance,Use of Upper Extremities Comments Mobility Comments O2 sat at room air: 90-95% pt completed supine to sit max A and max cues. required max A with initial sitting on EOB. presents with increase posterior leaning during sitting. required mod to max A for scooting to EOB. pt with c/o back pain during bed mobility and scooting. pt completed sit to stand max A and max cues and completed step transfer using FWW max A to chair. O2 sat after transfer: 85%. cued pt for deep breathing and O2 sat increased to 88-90% in ~ 30 sec. positioned pt on chair. agreed to stay up on chair. call light and table placed within reach. pt stated that maybe he can walk later but not at this time but agreed to walk tomorrow. PT-Balance Assessment Sitting Balance and Reactions Static Sitting Balance Ability Fair Dynamic Sitting Balance Ability Poor Standing Balance and Reactions Static Standing Balance Ability Poor Dynamic Standing Balance Ability Poor Device Used FWW M5 PT-IP Objective Assessments Start: 06/26/20 08:50 Freq: NEEDED Status: Active Protocol: Document 06/27/20 13:55 AB (Rec: 06/27/20 15:51 AB [email or web address]) Orientation Orientation/Cognition Level of Alertness Confusional State Orientation Name,Place,Situation Safety Awareness Decreased Safety Awareness Memory Description Short Term Impaired Gross Range of Motion Lower Extremity ROM Assessment Within Functional Limits Strength Lower Extremity Strength Assessment Bilaterally Impaired Ankle 3/5 Muscle Tone Muscle Tone WNL Yes M6 PT-IP Treatment Start: 06/26/20 08:50 Freq: NEEDED Status: Active Protocol: Document 06/27/20 13:55 AB (Rec: 06/27/20 15:51 AB [email or web address]) Physical Therapy Treatment Education Education Provided Safety M7 PT-IP Assessment and Plan Start: 06/26/20 08:50 Freq: NEEDED Status: Active Protocol: Document 06/27/20 13:55 AB (Rec: 06/27/20 15:51 AB [email or web address]) PT Summary Assessment and Plan Potential Rehabilitation Potential Fair Status of Condition at Evaluation Evolving Summary Impairments Pain,ROM,Strength,Balance, Coordination,Sensation,Tone, Cognition,Bed Mobility, Transfers,Gait,Activity Tolerance Assessment Summary Pt requiring max A with mobility and unable to tolerate much activity with decrease of O2 sat to 85% after transfers. pt may require SNF rehab at this time . pt lives his spouse but will not be able to assist him much due to spouse's own medical issues. will continue to assess progress. Goals Bed Mobility Goal Standby Assistance Transfer Goal Standby Assistance,Front Wheeled Walker Gait Goal Standby Assistance,Front Wheel Walker Gait Distance 50 Other Goals improve ambulation using 4WW 100 ft SBA Days to Meet Goals 10 Frequency of Treatment Frequency Of Treatment Once a Day Treatment Plan Physical Therapy Treatment Plan Bed Mobility Training,Transfer Training,Gait Training, Therapeutic Exercise,Balance Retraining,Discharge Planning, Neuromuscular Re-ed, Coordination Retraining Other Recommendations and Next Treatment ambulation Focus Precautions Other Precautions covid + precautions; O2 sat Recommendations To Nursing Amount of Assist Needed 2 Person Assist Discharge Recommendations PT Discharge Recommendations SNF Rehab Transportation Needs at Discharge Wheelchair/Cabulance
--- NOTE | 2020-06-27 15:55 | P.PN_ITS ---
Subjective Subjective Date Patient Seen: 06/27/20 Time Patient Seen: 15:55 Interval history: This is an 84-year-old male with multiple medical comorbidities admitted for COVID-19 pneumonia. He had been improving clinically but decompensated and was moved to an ICU room for continued heated high-flow which he required to maintain adequate oxygen saturations. He was yesterday decreased to regular nasal cannula and was able to be weaned off of oxygen today. He still remains weak. Exam Vital Signs (past 8 hours): - 06/27/20 08:00 06/27/20 08:12 06/27/20 08:39 Temperature 98.0 F Pulse Rate 106 H 67 Respiratory Rate 22 22 Blood Pressure 136/93 H Pulse Oximetry 97 94 94 06/27/20 09:06 06/27/20 11:01 06/27/20 13:00 Temperature 98.4 F Pulse Rate 98 H 97 H Respiratory Rate 22 19 Blood Pressure 113/74 Pulse Oximetry 97 91 98 06/27/20 13:31 Temperature Pulse Rate 83 Respiratory Rate 20 Blood Pressure Pulse Oximetry 95 Fraction of Inspired Oxygen 0.46 Oxygen Delivery Method Room Air Oxygen Flow Rate 2 Narrative Exam Narrative: General: Elderly man, no acute distress comfortable on room air HEENT: Has moist mucous membranes, trachea midline, no JVD Cardiovascular irregularly irregular, tachycardic, no murmurs Pulmonary has coarse breath sounds bilaterally with poor air movement Abdomen soft nontender nondistended, no organomegaly, normal bowel sounds Skin: Has scattered ecchymoses on his extremities Neuro: he is awake alert and oriented, moving all extremities equally Extremities: he has slight swelling to his feet which he describes is baseline, no tenderness. Chronic venous stasis changes bilaterally. Psych: he is cooperative, pleasant Objective Labs Result Diagrams: 06/27/20 04:40 06/27/20 04:40 Labs: Laboratory Results - last 24 hr 06/27/20 06/27/20 06/27/20 04:40 04:40 04:40 WBC 7.8 RBC 3.77 L Hgb 10.9 L Hct 33.2 L MCV 88.2 MCH 28.9 MCHC 32.8 RDW 14.5 Plt Count 248 Neut % (Auto) 84.2 H Lymph % (Auto) 8.7 L Cassia % (Auto) 5.9 Eos % (Auto) 0.6 L Baso % (Auto) 0.6 Neut # (Auto) 6500 Lymph # (Auto) 700 L Cassia # (Auto) 500 Eos # (Auto) 0 Baso # (Auto) 100 PT 42.3 H D INR 3.7 H Sodium 138 Potassium 4.3 Chloride 108 H Carbon Dioxide 25 BUN 39 H Creatinine 1.24 Estimated GFR 55.5 L BUN/Creatinine Ratio 31.5 H Glucose 130 H D Calcium 8.4 Magnesium 2.3 Total Bilirubin 0.5 Conjugated Bilirubin 0.0 Unconjugated Bilirubin 0.4 AST 80 H ALT 70 H Alkaline Phosphatase 78 Total Protein 5.7 L Albumin 2.7 L Globulin 3.0 Albumin/Globulin Ratio 0.9 L PFSH Medical History Cancer of left ear Chronic atrial fibrillation with RVR Diabetes E coli infection Hernia of abdominal cavity Hypothyroidism Inguinal hernia bilateral, non-recurrent Melanoma Prostate cancer Right eye injury Surgical History History of throat surgery History of transurethral resection of prostate Status post bilateral hernia repair Social History household members: spouse Smoking Status: Never smoker alcohol intake: never Assessment & Plan Assessment & Plan narrative: Mr. Heard 84-year-old man past medical history of AFib, hypothyroidism, type 2 diabetes, CKD stage 3, orthostatic hypotension is coming in with acute respiratory failure from COVID pneumonia. 1. Acute respiratory failure from from COVID pneumonia, improving -patient had very elevated inflammatory markers with elevated CRP, BMP, ferritin, LFTs, LDH, and troponin, -has positive COVID test, has desaturations on room air to the 80s, and chest x- ray supports diagnosis of pneumonia with bilateral interstitial infiltrates. He acutely decompensated on 06/24 and transfer to ICU on high-flow heated nasal cannula. He was again able to be weaned to room air today. He remains weak after his extended stay. -will continue to treat him with scheduled daily dexamethasone 6 mg IV q.d. and remdesivir. Can likely discontinue tomorrow. -he has mildly elevated rising LFTs, stop remdesivir if LFTs greater than 5 times normal -patient is unable to self prone due to chronic back pain. 2. Staph positive blood cultures, presumed contaminant -noted on morning of 06/23, started vancomycin on 06/23 -repeat blood cultures on 06/23 so far negative -cultures positive in 04/18 for Staph epi -final cultures have grown Staph epi. Presumed this to be a contaminant and antibiotic discontinued. 2. Chronic AFib with RVR, RVR resolved -on digoxin and metoprolol for rate control, improved HR control since increased metoprolol dose -INR 6.1 on 06/26 and warfarin held, 3.7 today, repeat INR tomorrow -resumed home furosemide 80 mg daily 3. Type 2 diabetes -glucose improving though still above 200 -continue Lantus 35 U BID and sliding scale. 4. CKD stage 3 -on admission has creatinine of 1.5 and has been stable thus far. 5. Orthostatic hypertension -will continue on his midodrine for now 6. Hypothyroidism -continue him on his home dose of Synthroid 7. Anemia -anemia with a hemoglobin of 11.5 will continue to trend for now -baseline appearts to be near 11-12 Diet: Heart healthy DVT prophylaxis: Anticoagulated on warfarin Dispo: recommended for SNF, will insure stability off of oxygen, and will need to ambulate further. Patient wishes today to return home after the hospital, unclear if this is feasible based on current PT recommendations. Code status was attempted to be discussed with patient, son, and all of who are unsure what code status would be at this time but for now requesting full code. Son Beka is POA with phone number [phone].
[2020-06-27] MEDS: REMDESIVIR 100 MG in SODIUM CHLORIDE 0.9% 230 ML 250 ML IV (16:03)
[2020-06-27] MEDS: MELATONIN 3 MG TABLET 6 MG PO (20:13)
[2020-06-28] VITALS (7 sets, daily range): BP systolic 98–149; BP diastolic 60–77; PULSE 69–95; RESP 18–24; TEMP 36.4–36.9; O2SAT 92–98
[2020-06-28 05:17] LABS: INR 2.5 (0.9-1.3)
[2020-06-28] MEDS: MIDODRINE HCL 5 MG TABLET PO ×3 (07:47→18:45)
[2020-06-28] MEDS: LEVOTHYROXINE 100 MCG TABLET PO (07:48)
[2020-06-28] MEDS: LEVOTHYROXINE 100 MCG TABLET 50 MCG PO (07:53)
[2020-06-28] MEDS: DIGOXIN 0.125 MG TABLET PO (07:56)
[2020-06-28] MEDS: DEXAMETHASONE 10 MG/ML VIAL 6 MG IV (07:56)
[2020-06-28] MEDS: METOPROLOL IR 25 MG TABLET PO ×2 (07:56→20:42)
[2020-06-28] MEDS: TRAMADOL 50 MG TABLET 25 MG PO ×3 (07:57→18:00)
[2020-06-28] MEDS: SODIUM CHLORIDE 0.9% FLUSH 10 ML IV ×2 (07:58→20:42)
[2020-06-28] MEDS: SENNOSIDES 8.6 MG TABLET PO (07:59)
[2020-06-28] MEDS: INSULIN GLARGINE 100 UNIT/ML 3ML PEN 35 UNIT SUBCUT ×2 (08:16→20:44)
--- NOTE | 2020-06-28 11:31 | PC.NURSE ---
PT ABLE TO BE WEANED TO ROOM AIR WITH SPO2 89-92 % O2 PLACED @ NOCS DUE TO SLEEP APNEA- LUNGS DIM AND COARSE - OCC COUGH NOTED - ZARCO REMOVED AND PT HAS VOIDED ( UNMEASURED) AND ALSO AMBULATED WITH ASSIST ( HEAVY) TO BATHROOM FOR VERY LARGE STOOL. HE REFUSED TO WEAR GAIT BELT AND WISHED TO PULL ON CHAIR / BED / WALL RATHER THAN FOLLOW ANY FALL PRECAUTIONS THAT WERE OFFERED BY STAFF. AFIB CVR CONTINUES -
--- NOTE | 2020-06-28 11:43 | PT-IP ANOTE ---
1115 am: [facility] donned to do PT tx with pt. Pt refused PT. stated that he is going to rest, eat his lunch and then he will walk but not right now. pt continues to refuse to do PT despite education and stated that he wants rest and have a soda. Informed nurse that pt refused PT. pt also refusing to go to SNF.
--- NOTE | 2020-06-28 12:48 | PT.IPTN ---
Current Diagnoses COVID-19 (06/22/20) Physical Therapy Treatment Note M2 PT-IP Current Condition Start: 06/26/20 08:50 Freq: NEEDED Status: Active Protocol: Document 06/27/20 13:55 AB (Rec: 06/27/20 15:51 AB [id number]) Physical Therapy Current Condition Current Condition Evaluation Date 06/27/20 Treatment Diagnosis Covid PNA; difficulty in walking Onset Date 06/22/20 Precautions Other Precautions O2 sat; Covid + precautions M3 PT-IP Subjective Start: 06/26/20 08:50 Freq: NEEDED Status: Active Protocol: Document 06/28/20 12:48 AB (Rec: 06/28/20 13:42 AB [id number]) Subjective Physical Therapy Visit Type Type Treatment Note Visit Start Time 12:48 Visit Stop Time 13:17 Total Visit Minutes 29 Number of DAIRY FARM WORKER Visits 0 M4 PT-IP Mobility and Gait Start: 06/26/20 08:50 Freq: NEEDED Status: Active Protocol: Document 06/28/20 12:48 AB (Rec: 06/28/20 13:42 AB [id number]) PT-Transfer Assessment Sit to and From Stand Sit to and from Stand Minimal Assistance,1 Person Assistance,Use of Upper Extremities Equipment Transfer Assistive Device Gait Belt,Front Wheeled Walker Orthotic/Prosthetic Devices or Brace: No Comments Mobility Comments pt sitting on chair. agreed to do PT. completed sit to stand min to mod A. completed ambulation in room using FWW min A ~ 30 ft. increase forward trunk flexion towards end of ambulation. cued for upright posture and deep breathing in between ambulation. pt sat on chair to rest. O2 sat after ambulation: 89% and increases to 91% in ~ 10 sec. agreed to stand up again and completed sit to stand min A and cues. static standing CGA with emphasis on posture. O2 sat maintained at 91%. pt sat back on chair. postioned on chair. call light and table placed within reach. informed nurse regarding pt's mobility level. pt continue to refuse going to SNF. stated that he has friends and neighbors that can help him when he is at home. also stated that he has railings all throughout the house and house is set up for him to be able to move easier. educated pt on safety and at this time still continues to have decrease activity tolerance affecting mobility and needs to be stronger and more independent prior to d/c home. Pt understood. Gait Assessment Gait Gait Assistance Required: Minimum Assistance Distance (Feet) 30 Able to Maintain Weight Bearing Status Yes During Gait Assistive Devices Assistive Device Gait Belt,Front Wheeled Walker Orthotic/Prosthetic Devices or Brace: No Gait Deviations General Gait Pattern Decreased Stride Length, Decreased Feet Clearance Factors Limiting Gait Function Factors Limiting Gait Function Decreased Activity Tolerance, Decreased Strength,Poor Balance,Poor Safety Awareness, Respiratory Distress Comments Gait Comments pls refer to mobility level for details M5 PT-IP Objective Assessments Start: 06/26/20 08:50 Freq: NEEDED Status: Active Protocol: Document 06/27/20 13:55 AB (Rec: 06/27/20 15:51 AB [id number]) Orientation Orientation/Cognition Level of Alertness Confusional State Orientation Name,Place,Situation Safety Awareness Decreased Safety Awareness Memory Description Short Term Impaired Gross Range of Motion Lower Extremity ROM Assessment Within Functional Limits Strength Lower Extremity Strength Assessment Bilaterally Impaired Ankle 3/5 Muscle Tone Muscle Tone WNL Yes M6 PT-IP Treatment Start: 06/26/20 08:50 Freq: NEEDED Status: Active Protocol: Document 06/28/20 12:48 AB (Rec: 06/28/20 13:42 AB [id number]) Physical Therapy Treatment Education Education Provided Safety Other Treatments Other Treatment Performed Covid precautions; O2 sat M7 PT-IP Assessment and Plan Start: 06/26/20 08:50 Freq: NEEDED Status: Active Protocol: Document 06/28/20 12:48 AB (Rec: 06/28/20 13:42 AB [id number]) PT Summary Assessment and Plan Potential Rehabilitation Potential Fair Summary Impairments Pain,ROM,Strength,Balance, Coordination,Sensation,Tone, Cognition,Bed Mobility, Transfers,Gait,Activity Tolerance Progress Towards Goals Slow Progress due to Medical Issues,Slow Progress due to Activity Tolerance Assessment Summary pt improving slowly and was able to ambulate today with min A using FWW. Continues to present decrease activity tolerance affecting mobility and safety. pt refuses to go to SNF but has limited assistance at home. will continue to assess progress but at this time, pt is still needing SNF rehab to improve overall strength and mobility independence. Goals Bed Mobility Goal Standby Assistance Transfer Goal Standby Assistance,Front Wheeled Walker Gait Goal Standby Assistance,Front Wheel Walker Gait Distance 50 Other Goals improve ambulation using 4WW 100 ft SBA Days to Meet Goals 10 Frequency of Treatment Frequency Of Treatment Once a Day Treatment Plan Physical Therapy Treatment Plan Bed Mobility Training,Transfer Training,Gait Training, Therapeutic Exercise,Balance Retraining,Discharge Planning, Neuromuscular Re-ed, Coordination Retraining Other Recommendations and Next Treatment ambulation Focus Precautions Other Precautions covid + precautions; O2 sat Recommendations To Nursing Amount of Assist Needed 1 Person Assist Discharge Recommendations PT Discharge Recommendations SNF Rehab Transportation Needs at Discharge Wheelchair/Cabulance
[2020-06-28] MEDS: INSULIN ASPART 100 UNIT/ML INSULN PEN SUBCUT ×3 (13:13→20:45)
--- NOTE | 2020-06-28 13:18 | CM.DPNOTE ---
Addendum entered by SILVERIO Mari 06/28/20 14:28: Patient has been authorized by [facility] for longterm facility. Now, SNF bed needs to be secured for COVID-19+. Franny at [facility] suggested patient could DC to any SNF (?) Requested list of longterm facilities that are accepting COVID-19 patients if available Original Note: DCP Note Faxed updated clinical to [facility] this morning to request review for SNF authorization. Patient improving medically however, currently requiring mod-max assist to get to the OOB Placed call to Isabel Cameron [facility], P# [phone]..she is gone today so transferred to [facility] P#[phone], requested review of SNF auth request and asked for list of contracted longterm facilities that are also accepting COVI-19+ patients. Franny plans to speak w/hospital placement team and f/u w/this JACKSCREW MAN Following closely for coordination of safe DCP JW
--- NOTE | 2020-06-28 14:04 | P.PN_ITS ---
Subjective Subjective Date Patient Seen: 06/28/20 Time Patient Seen: 14:04 Interval history: This is an 84-year-old male with multiple medical comorbidities admitted for COVID-19 pneumonia. He had been improving clinically but decompensated and was moved to an ICU room for continued heated high-flow which he required to maintain adequate oxygen saturations. He was again able to be weaned and has now been on room air today. Overnight he was placed back on supplemental oxygen for likely ALEJANDRINA. He did very well with PT/OT today, still wishes to avoid rehab and may be able to go home tomorrow with home health. He denies complaints today, was able to have a bowel movement. He is working quite hard he states to avoid having to go to SNF. Exam Vital Signs (past 8 hours): - 06/28/20 08:00 06/28/20 12:34 Temperature 97.8 F 97.7 F Pulse Rate 76 86 Respiratory Rate 18 20 Blood Pressure 149/77 H 98/62 Pulse Oximetry 92 96 Fraction of Inspired Oxygen 0.46 Oxygen Delivery Method Room Air Oxygen Flow Rate 0 Narrative Exam Narrative: General: Elderly man, no acute distress comfortable on room air HEENT: Has moist mucous membranes, trachea midline, no JVD Cardiovascular irregularly irregular, tachycardic, no murmurs Pulmonary has coarse breath sounds bilaterally with improved air movement. Abdomen soft nontender nondistended, no organomegaly, normal bowel sounds Skin: Has scattered ecchymoses on his extremities Neuro: he is awake alert and oriented, moving all extremities equally Extremities: he has slight swelling to his feet which he describes is baseline, no tenderness. Chronic venous stasis changes bilaterally. Psych: he is cooperative, pleasant Objective Labs Result Diagrams: 06/27/20 04:40 06/27/20 04:40 Labs: Laboratory Results - last 24 hr 06/28/20 04:50 PT 28.0 H D INR 2.5 H PFSH Medical History Cancer of left ear Chronic atrial fibrillation with RVR Diabetes E coli infection Hernia of abdominal cavity Hypothyroidism Inguinal hernia bilateral, non-recurrent Melanoma Prostate cancer Right eye injury Surgical History History of throat surgery History of transurethral resection of prostate Status post bilateral hernia repair Social History household members: spouse Smoking Status: Never smoker alcohol intake: never Assessment & Plan Assessment & Plan narrative: Mr. Heard 84-year-old man past medical history of AFib, hypothyroidism, type 2 diabetes, CKD stage 3, orthostatic hypotension is coming in with acute respiratory failure from COVID pneumonia. 1. Acute respiratory failure from from COVID pneumonia, acute respiratory failure resolved. -patient had very elevated inflammatory markers with elevated CRP, BMP, ferritin, LFTs, LDH, and troponin, -has positive COVID test, has desaturations on room air to the 80s, and chest x- ray supports diagnosis of pneumonia with bilateral interstitial infiltrates. He acutely decompensated on 06/24 and transfer to ICU on high-flow heated nasal cannula. He was again able to be weaned to room air again, he remains weak after his extended stay but is improving quite quickly -will continue to treat him with scheduled daily dexamethasone 6 mg IV q.d. and remdesivir. will stop today's remdesevir, last dose 06/27. Last dose decadron 06/28. -patient is unable to self prone due to chronic back pain. 2. Staph positive blood cultures, presumed contaminant -noted on morning of 06/23, started vancomycin on 06/23 -repeat blood cultures on 06/23 so far negative -cultures positive in 04/18 for Staph epi -final cultures have grown Staph epi. Presumed this to be a contaminant and antibiotic discontinued. 2. Chronic AFib with RVR, RVR resolved -on digoxin and metoprolol for rate control, improved HR control since increased metoprolol dose -INR 6.1 on 06/26 and warfarin held, 2.5 today and will resume half home dose at 2.5 mg daily. -resumed home furosemide 80 mg daily 3. Type 2 diabetes -glucose improving though still above 200. Thought to be from his decadron which will be stopped. -continue Lantus 35 U BID and sliding scale. No other adjustments at this time given stopping steroids. 4. CKD stage 3 -on admission has creatinine of 1.5 and has been stable thus far. 5. Orthostatic hypertension -will continue on his midodrine for now 6. Hypothyroidism -continue him on his home dose of Synthroid 7. Anemia -anemia with a hemoglobin of 11.5 will continue to trend for now -baseline appearts to be near 11-12 8. probable ALEJANDRINA - patient with desaturations when sleeping, improved when awake. can continue supplemental o2 at night while asleep if O2 <90%. Diet: Heart healthy DVT prophylaxis: Anticoagulated on warfarin Dispo: recommended for SNF initially, but rapidly improving today with PT. He does not wish to return to SNF, may be able to discharge home with home health as soon as tomorrow depending on progress with PT/OT. Code status was attempted to be discussed with patient, son, and all of who are unsure what code status would be at this time but for now requesting full code. Son Beka is POA with phone number [phone].
--- NOTE | 2020-06-28 14:43 | CM.DPNOTE ---
Faxed referral packets to [facility] facilities per Elis on 06/28/20. Received Fax Confirmation. Mary Bentley CM Asst.
[2020-06-28] MEDS: ACETAMINOPHEN 325 MG TABLET 650 MG PO (15:52)
[2020-06-28] MEDS: WARFARIN 5 MG TABLET 2.5 MG PO (18:00)
[2020-06-28] MEDS: MELATONIN 3 MG TABLET 6 MG PO (20:42)
[2020-06-29] VITALS (7 sets, daily range): BP systolic 88–134; BP diastolic 49–83; PULSE 63–96; RESP 18–24; TEMP 36.3–36.6; O2SAT 91–95
[2020-06-29] MEDS: LEVOTHYROXINE 100 MCG TABLET 50 MCG PO (06:34)
[2020-06-29] MEDS: MIDODRINE HCL 5 MG TABLET PO ×2 (06:34→12:17)
[2020-06-29] MEDS: TRAMADOL 50 MG TABLET 25 MG PO ×2 (08:31→12:14)
[2020-06-29] MEDS: METOPROLOL IR 25 MG TABLET PO (08:31)
[2020-06-29] MEDS: DIGOXIN 0.125 MG TABLET PO (08:32)
[2020-06-29] MEDS: SENNOSIDES 8.6 MG TABLET PO (08:32)
[2020-06-29] MEDS: INSULIN GLARGINE 100 UNIT/ML 3ML PEN 35 UNIT SUBCUT (08:32)
[2020-06-29] MEDS: INSULIN ASPART 100 UNIT/ML INSULN PEN SUBCUT ×2 (08:35→12:14)
[2020-06-29 08:57] LABS: Add Manual Diff / Slide Review NO; Basophils Absolute Auto 0 /uL (0-100); Eosinophils Absolute Auto 100 /uL (0-450); Hematocrit 36.4 % (41-53); Hemoglobin 11.8 g/dL (13.5-17.5); Lymphocytes Absolute Auto 900 /uL (1100-4500); Lymphocytes Percent Auto 8.4 % (25-40); Mean Corpuscular HGB Conc 32.5 % (30-36); Mean Corpuscular Hemoglobin 28.7 PG (26-34); Mean Corpuscular Volume 88.2 fL (80-100); Monocytes Absolute Auto 500 /uL (0-900); Monocytes Percent Auto 4.6 % (3-14); Neutrophils Absolute Auto 9600 /uL (1500-7000); Platelet Count 351 X10^3/uL (150-400); Red Blood Cell Count 4.13 X10^6/uL (4.5-5.9); White Blood Cell Count 11.2 X10^3/uL (4.5-11.0)
[2020-06-29 09:03] LABS: Prothrombin Time 22.5 SECONDS (10.1-12.7)
[2020-06-29 09:06] LABS: D Dimer 751 ng/mL (<230); Lactate (Lactic Acid) 1.9 mmol/L (0.7-2.1)
[2020-06-29 09:07] LABS: Alanine Aminotransferase 54 IU/L (<50); Albumin 3.2 g/dL (3.5-5.0); Alkaline Phosphatase 89 U/L (38-126); Aspartate Aminotransferase 56 IU/L (17-59); BUN Creatinine Ratio 32.4 (6-22); Bilirubin Total 0.6 mg/dL (0.2-1.3); Blood Urea Nitrogen 45 mg/dL (9-20); Calcium 8.8 mg/dL (8.4-10.2); Carbon Dioxide 26 mmol/L (22-32); Chloride 105 mmol/L (98-107); Creatine Kinase 121 U/L (55-170); Estimated Glomerular Filt Rate 48.7 mL/min (>60); Globulin 3.3 g/dL (1.7-4.1); Glucose 206 mg/dL (80-110); HEMOLYSIS < 15 (0-50); Magnesium 2.3 mg/dL (1.6-2.3); Potassium 4.6 mmol/L (3.4-5.1); Sodium 135 mmol/L (137-145); Total Protein 6.5 g/dL (6.3-8.2)
[2020-06-29 09:18] LABS: Troponin I < 0.012 ng/mL (0.01-0.034)
--- NOTE | 2020-06-29 09:20 | PC.NURSE ---
pt reports having ok night - this rn was able to be sba of 1 for pt to get up from bed and use urinal and then transfer to chair for am meal- am bld glu 212- covered with aspart per sliding scale coverage and am lantus dose- pt is hopeful for discharge to home today and reports that he has a good set up at home, including chair and grab pole remains on room air and apo2 89-94% which is baseline for pt- afib cvr continues
[2020-06-29 09:23] LABS: CKMB % Relative Index 1.1 % (1.5-5.0); Creatine Kinase MB 1.32 ng/mL (<2.37)
[2020-06-29] MEDS: SODIUM CHLORIDE 0.9% FLUSH 10 ML IV (14:30)
--- NOTE | 2020-06-29 14:30 | CM.DPNOTE ---
Addendum entered by Wanda Jacobo 06/30/20 12:19: Per notes, patient discharged home on Wednesday06-29-2020. MAINTENANCE COORDINATOR requesting that d/c summary be faxed to [facility]. Faxed information as requested. KJS Addendum entered by SILVERIO Mari 06/29/20 15:52: Patient w/ h/o perry [facility], MAINTENANCE COORDINATOR missed this in prior notes. Patient okay w/ referral to [facility] this admission. Updated [facility] Fitzpatrick w/patient's DC order home today. Addendum entered by SILVERIO Mari 06/29/20 15:11: IMM reviewed and provided Original Note: DCP Note According to therapy team and CHIKIS Jameson, patient refuses SNF and hopes to return home w/family today. Awaiting therapy eval to check patient's functional progress. Patient currently on RA Faxed referral to [facility], requested RN/PT/OT/CONE FORMER. Patient agreeable to this. If patient goes home today, f/u will likely be Wednesday according to Nanette leone/[facility] Plan: DC expected home w/ [facility] either today or tomorrow, via family pov JW
--- NOTE | 2020-06-29 15:36 | PT.IPTN ---
Current Diagnoses COVID-19 (06/22/20) Physical Therapy Treatment Note M2 PT-IP Current Condition Start: 06/26/20 08:50 Freq: NEEDED Status: Active Protocol: Document 06/27/20 13:55 AB (Rec: 06/27/20 15:51 AB [id number]) Physical Therapy Current Condition Current Condition Evaluation Date 06/27/20 Treatment Diagnosis Covid PNA; difficulty in walking Onset Date 06/22/20 Precautions Other Precautions O2 sat; Covid + precautions M3 PT-IP Subjective Start: 06/26/20 08:50 Freq: NEEDED Status: Active Protocol: Document 06/29/20 15:29 [facility] (Rec: 06/29/20 15:36 [facility] [id number]) Subjective Physical Therapy Visit Type Type Treatment Note Visit Start Time 14:30 Visit Stop Time 15:00 Total Visit Minutes 30 Number of COUNTRY PRINTER Visits 0 Physical Therapy Visit Comments Patient Comments Pt is agreeable to PT and reports he is hoping he can go home today M4 PT-IP Mobility and Gait Start: 06/26/20 08:50 Freq: NEEDED Status: Active Protocol: Document 06/29/20 15:29 [facility] (Rec: 06/29/20 15:36 [facility] [id number]) PT-Bed Mobility Assessment Supine to Sit Supine to Sit Contact Guard Assistance Scooting Scooting to Edge of Bed Contact Guard Assistance PT-Transfer Assessment Sit to and From Stand Sit to and from Stand Contact Guard Assistance,Use of Upper Extremities Equipment Transfer Assistive Device Gait Belt,Front Wheeled Walker Orthotic/Prosthetic Devices or Brace: No Comments Mobility Comments Pt in bed and very willing to do PT as he would like to go home today. He wanted to show me he could do his bed mobility and transfers on his own and he did with CGA. He ambulated in room with CGA with fww. Gait Assessment Gait Gait Assistance Required: Contact Guard Assist Distance (Feet) 40 Able to Maintain Weight Bearing Status Yes During Gait Assistive Devices Assistive Device Gait Belt,Front Wheeled Walker Orthotic/Prosthetic Devices or Brace: No Gait Deviations General Gait Pattern Decreased Stride Length, Decreased Feet Clearance Factors Limiting Gait Function Factors Limiting Gait Function Decreased Activity Tolerance, Decreased Strength,Poor Balance,Poor Safety Awareness, Respiratory Distress Comments Gait Comments pls refer to mobility level for details PT-Balance Assessment Sitting Balance and Reactions Static Sitting Balance Ability Good Dynamic Sitting Balance Ability Good Standing Balance and Reactions Static Standing Balance Ability Good Dynamic Standing Balance Ability Fair Device Used fww M5 PT-IP Objective Assessments Start: 06/26/20 08:50 Freq: NEEDED Status: Active Protocol: Document 06/27/20 13:55 AB (Rec: 06/27/20 15:51 AB [id number]) Orientation Orientation/Cognition Level of Alertness Confusional State Orientation Name,Place,Situation Safety Awareness Decreased Safety Awareness Memory Description Short Term Impaired Gross Range of Motion Lower Extremity ROM Assessment Within Functional Limits Strength Lower Extremity Strength Assessment Bilaterally Impaired Ankle 3/5 Muscle Tone Muscle Tone WNL Yes M6 PT-IP Treatment Start: 06/26/20 08:50 Freq: NEEDED Status: Active Protocol: Document 06/29/20 15:29 [facility] (Rec: 06/29/20 15:36 [facility] [id number]) Physical Therapy Treatment Education Education Provided Safety Other Treatments Other Treatment Performed Covid precautions; O2 sat M7 PT-IP Assessment and Plan Start: 06/26/20 08:50 Freq: NEEDED Status: Active Protocol: Document 06/29/20 15:29 [facility] (Rec: 06/29/20 15:36 [facility] [id number]) PT Summary Assessment and Plan Potential Rehabilitation Potential Good Summary Impairments Pain,ROM,Strength,Balance, Coordination,Sensation,Tone, Cognition,Bed Mobility, Transfers,Gait,Activity Tolerance Progress Towards Goals Slow Progress due to Medical Issues,Slow Progress due to Activity Tolerance Assessment Summary pt improving slowly and was able to ambulate today with min A using FWW. Continues to present decrease activity tolerance affecting mobility and safety. pt refuses to go to SNF but has limited assistance at home. will continue to assess progress but at this time, pt is still needing SNF rehab to improve overall strength and mobility independence. Goals Bed Mobility Goal Standby Assistance Transfer Goal Standby Assistance,Front Wheeled Walker Gait Goal Standby Assistance,Front Wheel Walker Gait Distance 50 Other Goals improve ambulation using 4WW 100 ft SBA Days to Meet Goals 10 Frequency of Treatment Frequency Of Treatment Once a Day Treatment Plan Physical Therapy Treatment Plan Bed Mobility Training,Transfer Training,Gait Training, Therapeutic Exercise,Balance Retraining,Discharge Planning, Neuromuscular Re-ed, Coordination Retraining Other Recommendations and Next Treatment ambulation Focus Precautions Other Precautions covid + precautions; O2 sat Recommendations To Nursing Amount of Assist Needed 1 Person Assist Discharge Recommendations PT Discharge Recommendations Home with Assistance Other Discharge Recommendations pt's son is at home to help him at this time Transportation Needs at Discharge Wheelchair/Cabulance
--- NOTE | 2020-06-29 15:52 | PM.DS.1 ---
History of Present Illness History of Present Illness Date Patient Seen: 06/29/20 Time Patient Seen: 15:56 Chief complaint: Weakness, Covid+ Narrative: Mr. Heard is an 84-year-old male with a past medical history of atrial fibrillation, diabetes type 2, hypothyroidism, CKD stage 3, orthostatic hypotension who comes in with shortness of breath. Patient apparently had been diagnosed with COVID approximately 1 week ago on June 14 [facility]. Since then she has been at home and he says that he has been having worsening shortness of breath. He has who is also positive for COVID who just was released from the hospital. He was not having significant coughing, not having significant fevers, he did have some nausea but was having no vomiting or diarrhea. He has had constipation which is his baseline. Apparently he has been struggling with getting sleep recently. Because of his worsening symptoms EMS was called and initially found him to have O2 saturation in the low 80s was placed on nasal cannula at 3 L. In the ER workup was done he was noted to be afebrile with normal blood pressures he was in tachycardic in the 100s to 120s in atrial fibrillation and he was noted to have mild tachypnea. Labs were drawn and he was noted to have a normal white count with low lymphocytes. Mildly low hemoglobin 11.5. INR of 2.1 and D-dimer of 686. Creatinine was 1.49, ferritin 1270, bilirubin 1.6, AST and ALT were mildly elevated, LDH was 1004, troponin was 0.038, CRP 18.1, and BNP was 4640. His COVID test was positive, and his chest x-ray showed bilateral interstitial infiltrates. In the ER he was given gentle fluids, given IV dexamethasone, and IV remdesivir and he was admitted for further treatment. Discharge Providers Provider Date of admission: 06/22/20 10:32 Discharge Date: 06/29/20 Primary care physician: Lakisha Dangelo MD Consults: 06/24/20 16:36 Consult to Physical Therapy Evaluate & Treat Comment: Physician Instructions: Evaluate and Treat 06/29/20 14:35 Consult to Home Health Routine Comment: Reason For Exam: Home health upon DC Discharge provider: Bibiana Cohen MD Summary Hospital Course Discharge Diagnosis: 1. Acute respiratory failure from from COVID pneumonia, acute respiratory failure resolved. 2. Staph positive blood cultures, presumed contaminant 2. Chronic AFib with RVR, RVR resolved 3. Type 2 diabetes 4. CKD stage 3 5. Orthostatic hypertension 6. Hypothyroidism 7. Anemia 8. probable ALEJANDRINA Hospital Course: Mr. Heard 84-year-old male with 1. Acute respiratory failure from from COVID pneumonia, acute respiratory failure resolved. -patient had very elevated inflammatory markers with elevated CRP, BMP, ferritin, LFTs, LDH, and troponin, -has positive COVID test, has desaturations on room air to the 80s, and chest x-ray diagnosis of pneumonia with bilateral interstitial infiltrates. He acutely decompensated on 06/24 and transfer to ICU on high-flow heated nasal cannula. He was again able to be weaned to room air again, he remains weak after his extended stay but is improving quite quickly -Remdesevir, last dose 06/27. Last dose decadron 06/28. -06/29 D-dimer of 751 but no longer hypoxic, or having any respiratory signs, and is anticoagulated at therapeutic levels on warfarin already. -he had his 1st Pfizer COVID vaccination 1 month ago, just before he was exposed through his son to COVID (his son was hospitalized for 13 days in the last few weeks). His became positive but did not require hospitalization. I have advised him that my experience with recent COVID pneumonia patients is that if they get their vaccinations too soon after their illness they get quite severe reactions. I suggested waiting 1-2 months for his 2nd COVID vaccination. -by 06/29 all hypoxia and dyspnea on exertion had resolved so he was discharged home. 2. Staph positive blood cultures, presumed contaminant -final cultures have grown Staph epi. Presumed this to be a contaminant and antibiotic discontinued. 2. Chronic AFib with RVR, RVR resolved -on digoxin and metoprolol for rate control, improved HR control since increased metoprolol dose -INR 6.1 on 06/26 and warfarin held, and then decreased down to 2.5 mg daily. Resume 5 mg at home and recheck INR in 3 days after discharge -resumed home furosemide 80 mg daily 3. Type 2 diabetes -glucose 205 today. Decadron affected this but was stopped on 06/28. -continue Lantus 35 U BID and follow up with Dr. Figueroa soon. Home dose is unclear. 4. CKD stage 3 -on admission has creatinine of 1.5 and has been stable thus far with a GFR of 48. 5. Orthostatic hypertension -will continue on his midodrine for now 6. Hypothyroidism -continue him on his home dose of Synthroid 7. Anemia -anemia with a hemoglobin of 11.5 -baseline appears to be near 11-12 8. probable ALEJANDRINA - patient with desaturations when sleeping, improved when awake. Resolved by 06/29. Diet: Carb Choice DVT prophylaxis: Anticoagulated on warfarin with INR of 2.0 and D-dimer of 751 Dispo: recommended for SNF initially, but rapidly improved and was cleared by PT to return home with his front wheel walker baseline use. Code status was attempted to be discussed with patient, son, and all of who are unsure what code status would be at this time but for now requesting full code. Son Beka is POA with phone number [phone]. Exam Vital Signs (past 8 hours): - 06/29/20 08:00 06/29/20 09:36 06/29/20 12:00 Temperature 97.6 F 97.4 F L Pulse Rate 83 74 Pulse Rate [Orthostatic Lying] Pulse Rate [Orthostatic Sitting] Pulse Rate [Orthostatic Standing] Respiratory Rate 22 18 Blood Pressure 120/74 92/53 L Blood Pressure [Orthostatic Lying] Blood Pressure [Orthostatic Sitting] Blood Pressure [Orthostatic Standing] Pulse Oximetry 91 92 06/29/20 13:37 Temperature Pulse Rate Pulse Rate [Orthostatic Lying] 72 Pulse Rate [Orthostatic Sitting] 78 Pulse Rate [Orthostatic Standing] 63 Respiratory Rate Blood Pressure Blood Pressure [Orthostatic Lying] 97/49 L Blood Pressure [Orthostatic Sitting] 114/54 L Blood Pressure [Orthostatic Standing] 111/55 L Pulse Oximetry Fraction of Inspired Oxygen 0.46 Oxygen Delivery Method Room Air Oxygen Flow Rate 0 Narrative Exam Narrative: Alert and oriented x3. Normal voice volume and pacing. Breathing comfortably without audible wheezing or exertional dyspnea Strong steady pulse Trace bilateral pitting ankle edema Objective Labs Result Diagrams: 06/29/20 08:45 06/29/20 08:45 Labs: Laboratory Results - last 24 hr 06/29/20 06/29/20 06/29/20 08:45 08:45 08:45 WBC 11.2 H RBC 4.13 L Hgb 11.8 L Hct 36.4 L MCV 88.2 MCH 28.7 MCHC 32.5 RDW 15.0 H Plt Count 351 Neut % (Auto) 86.0 H Lymph % (Auto) 8.4 L Jasper % (Auto) 4.6 Eos % (Auto) 1.0 L Baso % (Auto) 0.0 Neut # (Auto) 9600 H Lymph # (Auto) 900 L Jasper # (Auto) 500 Eos # (Auto) 100 Baso # (Auto) 0 PT 22.5 H D INR 2.0 H D-Dimer 751 H Sodium 135 L Potassium 4.6 Chloride 105 Carbon Dioxide 26 BUN 45 H Creatinine 1.39 H Estimated GFR 48.7 L BUN/Creatinine Ratio 32.4 H Glucose 206 H Lactate Calcium 8.8 Magnesium Total Bilirubin 0.6 AST 56 ALT 54 H Alkaline Phosphatase 89 Total Creatine Kinase 121 CK-MB (CK-2) 1.32 CK-MB (CK-2) Rel Index 1.1 L Troponin I < 0.012 Total Protein 6.5 Albumin 3.2 L Globulin 3.3 Albumin/Globulin Ratio 1.0 06/29/20 06/29/20 08:45 08:45 WBC RBC Hgb Hct MCV MCH MCHC RDW Plt Count Neut % (Auto) Lymph % (Auto) Jasper % (Auto) Eos % (Auto) Baso % (Auto) Neut # (Auto) Lymph # (Auto) Jasper # (Auto) Eos # (Auto) Baso # (Auto) PT INR D-Dimer Sodium Potassium Chloride Carbon Dioxide BUN Creatinine Estimated GFR BUN/Creatinine Ratio Glucose Lactate 1.9 Calcium Magnesium 2.3 Total Bilirubin AST ALT Alkaline Phosphatase Total Creatine Kinase CK-MB (CK-2) CK-MB (CK-2) Rel Index Troponin I Total Protein Albumin Globulin Albumin/Globulin Ratio [facility] Medical History (Updated 06/29/20 @ 15:54 by Bibiana Cohen MD) Cancer of left ear Chronic atrial fibrillation with RVR Community acquired pneumonia COVID-19 Diabetes E coli infection Hernia of abdominal cavity Hypothyroidism Inguinal hernia bilateral, non-recurrent Melanoma Prostate cancer Right eye injury Surgical History History of throat surgery History of transurethral resection of prostate Status post bilateral hernia repair Social History household members: spouse Smoking Status: Never smoker alcohol intake: never Discharge Plan Discharge Plan Patient Disposition: Home Provider Discharge Comment: Follow up with Dr. Lo Figueroa in 1 - 2 weeks Do repeat INR at Dr. Malik office in 2-3 days Discharge orders & Medications Prescriptions: New Eligio Gipsonostar U-100 Insulin 100 unit/mL (3 mL) Insulin Pen 35 unit SUBCUT BID Qty: 15 RF: 0 Continued tramadol 50 MG tablet 100 mg PO QID PRN (Reason: Pain (Scale Score 1-3)) Qty: 0 RF: 0 ferrous sulfate [Iron (ferrous sulfate)] 325 mg (65 mg iron) Tablet 325 mg PO DAILY RF: 0 midodrine 5 mg Tablet 5 mg PO 0600,1200,1800 Qty: 15 RF: 0 digoxin 125 mcg (0.125 mg) Tablet 0.125 mg PO DAILY Qty: 30 RF: 0 metoprolol tartrate 25 mg Tablet 12.5 mg PO BID Qty: 30 RF: 0 levothyroxine 50 mcg Tablet 50 mcg PO MOTUWETHFRSA RF: 0 warfarin [Coumadin] 5 mg Tablet 5 mg PO QACDINNER RF: 0 warfarin 5 mg tablet 5 mg PO QPM RF: 0 docusate sodium 100 mg 100 mg PO DAILY RF: 0 furosemide 80 mg Tablet 80 mg PO DAILY RF: 0 Discontinued doxycycline hyclate 100 mg tablet 100 mg PO BID Qty: 20 RF: 0 ferrous sulfate, dried 65 mg 65 mg PO DAILY RF: 0 Follow up/Referrals: Lakisha Dangelo MD [Primary Care Provider] - Diet/Activity/Treatments Diet: Carb-consistent/Diabetic Discharge Data Primary Care Provider: Lakisha Dangelo
--- NOTE | 2020-06-29 17:22 | PC.NURSE ---
Pt discharged at 0445 and left floor at 1700 via wheelchair to son who was waiting downstairs. Discharging Md aware pt's 1600 BP of 89/57 (68) and want pt to continue taking prescribed cardiac and BP medications. Pt was due to have his 1700 warfarin dose but declined stating that he wants to get going and will take his home supply of warfarin when he gets home. Without assist pt transferred self from chair to wheelchair using the furniture around him for support. Pt denies CP, dizziness or any other symptoms. Pt becomes SOB with transfer but quickly recover to RR 20 with rest. Pt has all of his belongings in a bag along with his discharge paperwork. This RN discussed follow up, medications and what to look for in regards to his recovery from COVID.
== END 2020-06-29 17:00 | disposition home health service (06) | DRG 177 ==
LOC: ED 10:01 → AC 10:34 → ICU 06-25 09:53 → AC 06-25 12:17 → ICU 06-25 12:17
PROVIDERS: Internal Medicine; Nurse Practitioner Family; Admitting Provider Internal Medicine; Emergency Provider Emergency Medicine; PCP Internal Medicine; Referring Provider Emergency Medicine; Visit Provider Internal Medicine
DX: U07.1 COVID-19 (principal); J12.82 Pneumonia due to coronavirus disease 2019; J96.00 Acute respiratory failure, unspecified whether with hypoxia or hypercapnia; I48.20 Chronic atrial fibrillation, unspecified; E11.22 Type 2 diabetes mellitus with diabetic chronic kidney disease; E03.9 Hypothyroidism, unspecified; D64.9 Anemia, unspecified; N18.30 Chronic kidney disease, stage 3 unspecified; I95.1 Orthostatic hypotension; Z79.01 Long term (current) use of anticoagulants; Z79.84 Long term (current) use of oral hypoglycemic drugs; R74.01 Elevation of levels of liver transaminase levels; G89.29 Other chronic pain; G47.33 Obstructive sleep apnea (adult) (pediatric)
CPT/HCPCS: 36415; 36592; 36600; 71045; 80048; 80053; 80076; 82550; 82553; 82728; 82805; 82962; 83605; 83615; 83735; 83880; 84145; 84484; 85025; 85027; 85379; 85610; 86140; 87040; 87150; 87186; 87205; 87635; 87797; 93005; 94760; 94762; 96365; 96375; 97116; 97162; 97530; 99285; C9803; J1100

== ENCOUNTER 2020-07-01 03:17 | Observation (INO) | payer OTHER, SELFPAY ==
[2020-06-22 16:16] VITALS: BMI 33.5
[2020-07-01] VITALS (13 sets, daily range): BP systolic 103–165; BP diastolic 66–87; PULSE 79–110; RESP 14–26; TEMP 36.3–37.1; O2SAT 92–100; BMI 33.9
--- NOTE | 2020-07-01 03:24 | ED_ITS ---
HPI - SOB/Dyspnea General Chief Complaint: Weakness Stated Complaint: weakness Time Seen by Provider: 07/01/20 03:20 Source: patient and EMS Mode of arrival: EMS Limitations: no limitations History of Present Illness HPI Narrative: 84-year-old male with a past medical history of atrial fibrillation, diabetes type 2, hypothyroidism, CKD stage 3, orthostatic hypotension who comes in with shortness of breath. He was just discharged yesterday after having been in the hospital for about a week with COVID-19. He eventually escalated to needing heme unified high-flow nasal cannula but never BiPAP or intubation. As stated, he was sent home earlier today and has very little access to any meaningful help at home as his also has COVID pneumonia. He has no home nursing assistance. He has been unable to get out of bed due to profound weakness and shortness of breath. He experienced tachypnea, rapid heart rate and desaturations into the 80s at home. He has had subjective fever and chills and poor appetite. He typically is resistant to any discharge to SNF but states he may have changed his mind this time around. MD Complaint: shortness of breath and cough Onset (ago): day(s) Context: recent illness Severity: moderate Consistency/Duration: constant Relieving factors: oxygen and rest Exacerbating factors: exertion and movement Known history of: congestive heart failure and recurrent pneumonia Treatment prior to arrival: none Related Data Home oxygen amount: none Home Medications Medication Instructions Recorded Confirmed tramadol 100 mg PO QID PRN #0 02/03/16 06/22/20 levothyroxine 50 mcg PO MOTUWETHFRSA 09/16/17 06/22/20 warfarin [Coumadin] 5 mg PO QACDINNER 07/20/18 06/22/20 ferrous sulfate [Iron (ferrous 325 mg PO DAILY 07/11/19 06/22/20 sulfate)] warfarin 5 mg PO QPM 01/05/20 06/22/20 docusate sodium 100 mg PO DAILY 01/06/20 06/22/20 furosemide 80 mg PO DAILY 01/06/20 06/22/20 Previous Rx's Medication Instructions Recorded digoxin 0.125 mg PO DAILY #30 tab 10/01/19 metoprolol tartrate 12.5 mg PO BID #30 tab 10/01/19 midodrine 5 mg PO 0600,1200,1800 #15 tab 10/01/19 insulin glargine [Lantus Solostar 35 unit SUBCUT BID #15 ml 06/29/20 U-100 Insulin] Allergies Allergy/AdvReac Type Severity Reaction Status Date / Time Penicillins Allergy Unknown Verified 06/22/20 09:32 Review of Systems Constitutional Constitutional: Denies chills, Reports fatigue, Denies fever(s), Denies frequent falls, Reports lethargy and Reports weakness Eyes Eyes: Denies change in vision, Denies eye discharge, Denies irritation and Denies loss of vision ENT Ears, Nose, Mouth, and Throat: Denies change in voice, Denies dizziness, Denies neck pain, Denies sore throat and Denies throat swelling Cardiovascular Cardiovascular: Denies chest pain, Reports irregular heart rhythm, Reports leg edema, Reports lightheadedness, Reports palpitations, Reports dyspnea, Reports dyspnea on exertion and Denies orthopnea Respiratory Respiratory: Denies cough, Reports dyspnea, Reports dyspnea on exertion and Denies wheezing Gastrointestinal Gastrointestinal: Denies abdominal pain, Denies change in bowel habits, Denies diarrhea, Denies nausea and Denies vomiting Musculoskeletal Musculoskeletal: Denies neck pain and Denies numbness Integumentary/Breasts Skin/Breast: Denies pruritus, Denies erythema, Denies rash and Denies wounds Neurologic Neurologic: Denies behavioral changes, Denies confusion, Denies dizziness, Denies frequent falls, Denies loss of vision, Denies numbness and Reports weakness Psychiatric Psychiatric: Denies anxiety, Denies behavioral changes, Denies confusion, Denies depression, Denies homicidal ideation and Denies suicidal ideation Endocrine Endocrine: Reports fatigue, Denies flushing and Reports palpitations Hematologic/Lymphatic Hematologic/Lymphatic: Denies easy bruising Allergic/Immunologic Allergic/Immunologic: Denies urticaria, Denies throat swelling and Denies wheezing Patient History Medical History Cancer of left ear Chronic atrial fibrillation with RVR Community acquired pneumonia COVID-19 Diabetes E coli infection Hernia of abdominal cavity Hypothyroidism Inguinal hernia bilateral, non-recurrent Melanoma Prostate cancer Right eye injury Surgical History History of throat surgery History of transurethral resection of prostate Status post bilateral hernia repair Social History household members: spouse Smoking Status: Never smoker alcohol intake: never Smoking Status: Never smoker alcohol intake frequency: 0-2 drinks per day Substance Use Type: does not use Exam Narrative Exam Narrative: GENERAL: [84] year old patient appears stated age. Well- nourished, well-developed patient in obvious distress with significant work of breathing just from movement off ambulance cart HR bumps to 130s, RR into 30s and SpO2 to 89% HEAD: Atraumatic. Normocephalic. EYES: Pupils equal round and reactive. Extraocular motions intact. No scleral i cterus. No injection or drainage. ENT: Nose without bleeding, purulent drainage. Throat without erythema, tonsillar hypertrophy or exudate. Airway patent. NECK: Trachea midline. Non tender CARDIOVASCULAR: Tachycardic but regular rhythm without murmurs, gallops, or rubs. RESPIRATORY: Tachypnea, use of accessory muscles, crackles in B/L bases GASTROINTESTINAL: Abdomen soft, non-tender, nondistended. EXTREMITIES: No edema or joint tenderness. BACK: Nontender without deformity or crepitance. No flank tenderness. NEURO: AOx3. SKIN: No rash or erythema of visible areas Initial Vital Signs Initial Vital Signs: Vital Signs Temperature 98.7 F 07/01/20 03:19 Pulse Rate 110 H 07/01/20 03:19 Respiratory Rate 26 H 07/01/20 03:19 Blood Pressure 140/87 07/01/20 03:19 Pulse Oximetry 92 07/01/20 03:19 Course Course Course Narrative: 0350 - patient meets SIRS criteria and is suspicious for infection, meeting the criteria for sepsis, however this is presumed COVID infection, therefore antibiotics are not indicated at this point time. Furthermore, fluids will not be ordered at which 30 cc/kilogram given his history of CHF ABG notes PaO2 53 Patient Dimer is the highest it has been, now over 1000. CTA ordered to rule out PE as cause of hypoxemia and tachycardia Extensive discussion with patient regarding his pattern of resistance to help. He recognizes his inability to succeed at home without help as is evidenced by his rapid transport back to us. Orders Ordered: ED Orders 07/01/20 03:17 COVID19 -Nasal swab/Pre-Proc Stat 07/01/20 03:23 EKG-12 Lead Stat 07/01/20 03:30 C-Reactive Protein Quant Stat Complete Blood Count AUTO DIFF Stat Comprehensive Metabolic Panel Stat D Dimer Stat Ferritin Stat Lactate (Lactic Acid) Stat Lactate Dehydrogenase Stat NT-proBNP (BNP-Adult 18+) Stat Procalcitonin Stat Troponin & CK Cardiac Panel Stat 07/01/20 03:47 Arterial Blood Gas Stat 07/01/20 04:00 Blood Culture Stat Respiratory Panel (Film Array) Stat 07/01/20 04:15 CT angio chest PE protocol Stat Acetaminophen (Acetaminophen 325 Mg Tablet) 650 mg PO Q4HR PRN PRN Reason: Fever/Mild Pain (1-3) Remdesivir 100 mg/ Sodium (Chloride) 250 mls @ 250 mls/hr IV DAILY GARRETT Discontinued Medications Acetaminophen (Acetaminophen 325 Mg Tablet) 650 mg PO NOW ONE Stop: 07/01/20 03:49 Last Admin: 07/01/20 03:50 Dose: 650 mg Documented by: Dexamethasone (Dexamethasone 10 Mg/Ml Vial) 6 mg IV NOW ONE Stop: 07/01/20 04:21 Last Admin: 07/01/20 04:26 Dose: 6 mg Documented by: Vital Signs Vital signs: Vital Signs - 8 hr 07/01/20 03:19 07/01/20 04:00 07/01/20 04:30 Temperature 98.7 F Pulse Rate 110 H 87 100 H Respiratory Rate 26 H 20 19 Blood Pressure 140/87 128/67 132/69 Pulse Oximetry 92 94 100 07/01/20 04:52 07/01/20 05:00 Temperature Pulse Rate 102 H 97 H Respiratory Rate 14 18 Blood Pressure 103/67 122/66 Pulse Oximetry 99 99 MDM - SOB/Dyspnea Lab Data Result diagrams: 07/01/20 03:30 07/01/20 03:30 Labs: Lab Results 07/01/20 07/01/20 07/01/20 Range/Units 03:17 03:30 03:30 WBC 7.1 (4.5-11.0) X10^3/uL RBC 3.87 L (4.5-5.9) X10^6/uL Hgb 11.2 L (13.5-17.5) g/dL Hct 34.3 L (41-53) % MCV 88.6 (80-100) fL MCH 28.9 (26-34) PG MCHC 32.6 (30-36) % RDW 14.9 H (11.6-14.8) % Plt Count 283 (150-400) X10^3/uL Neut % (Auto) 81.3 H (50-75) % Lymph % (Auto) 10.2 L (25-40) % [place] % (Auto) 5.4 (3-14) % Eos % (Auto) 2.2 (2-4) % Baso % (Auto) 0.9 (0-2) % Neut # (Auto) 5800 (9093-6943) /uL Lymph # (Auto) 700 L (5887-2939) /uL [place] # (Auto) 400 (0-900) /uL Eos # (Auto) 200 (0-450) /uL Baso # (Auto) 100 (0-100) /uL D-Dimer 1018 H (<230) ng/mL ABG pH (7.35-7.45) ABG pCO2 (35-45) mmHg ABG pO2 (80-100) mmHg ABG HCO3 (22-26) mmol/L ABG Total CO2 (21-31) mmol/L ABG O2 Saturation (95-100) % ABG Base Excess (-2-2) mmol/L FiO2 Sodium (137-145) mmol/L Potassium (3.4-5.1) mmol/L Chloride (98-107) mmol/L Carbon Dioxide (22-32) mmol/L BUN (9-20) mg/dL Creatinine (0.66-1.25) mg/dL Estimated GFR (>60) mL/min BUN/Creatinine Ratio (6-22) Glucose (80-110) mg/dL Lactate (0.7-2.1) mmol/L Calcium (8.4-10.2) mg/dL Ferritin (18-464) ng/mL Total Bilirubin (0.2-1.3) mg/dL AST (17-59) IU/L ALT (<50) IU/L Alkaline Phosphatase (38-126) U/L Lactate Dehydrogenase (313-618) U/L Total Creatine Kinase (55-170) U/L CK-MB (CK-2) CK-MB (CK-2) Rel Index Troponin I (0.01-0.034) ng/mL C-Reactive Protein (<1.0) mg/dL NT-Pro-B Natriuret Pep (<450) pg/mL Total Protein (6.3-8.2) g/dL Albumin (3.5-5.0) g/dL Globulin (1.7-4.1) g/dL Albumin/Globulin Ratio (1.0-2.8) Procalcitonin (<0.5) ng/mL Chlamy pneumoniae PCR (Not Detect) Adenovirus (PCR) (Not Detect) B. pertussis DNA (PCR) (Not Detecte) B.parapertussis DNA PCR (Not Detecte) Coronavirus OC43 (PCR) (Not Detect) Coronavirus HKU1 (PCR) (Not Detect) Coronavirus 229E (PCR) (Not Detect) SARS-CoV-2 (PCR) Positive H (Negative) Coronavirus NL63 (PCR) (Not Detect) Human Metapneumovir PCR (Not Detect) Influenza Type A (PCR) (Not Detect) Influenza Type B (PCR) (Not Detect) M. pneumoniae (PCR) (Not Detect) Parainfluenza 1 (PCR) (Not Detect) Parainfluenza 2 (PCR) (Not Detect) Parainfluenza 3 (PCR) (Not Detect) Parainfluenza 4 (PCR) (Not Detect) RSV (PCR) (Not Detect) Entero/Rhino (PCR) (Not Detect) 07/01/20 07/01/20 07/01/20 Range/Units 03:30 03:30 03:30 WBC (4.5-11.0) X10^3/uL RBC (4.5-5.9) X10^6/uL Hgb (13.5-17.5) g/dL Hct (41-53) % MCV (80-100) fL MCH (26-34) PG MCHC (30-36) % RDW (11.6-14.8) % Plt Count (150-400) X10^3/uL Neut % (Auto) (50-75) % Lymph % (Auto) (25-40) % [place] % (Auto) (3-14) % Eos % (Auto) (2-4) % Baso % (Auto) (0-2) % Neut # (Auto) (8102-8730) /uL Lymph # (Auto) (4422-5034) /uL [place] # (Auto) (0-900) /uL Eos # (Auto) (0-450) /uL Baso # (Auto) (0-100) /uL D-Dimer (<230) ng/mL ABG pH (7.35-7.45) ABG pCO2 (35-45) mmHg ABG pO2 (80-100) mmHg ABG HCO3 (22-26) mmol/L ABG Total CO2 (21-31) mmol/L ABG O2 Saturation (95-100) % ABG Base Excess (-2-2) mmol/L FiO2 Sodium 140 (137-145) mmol/L Potassium 4.2 (3.4-5.1) mmol/L Chloride 109 H (98-107) mmol/L Carbon Dioxide 26 (22-32) mmol/L BUN 34 H (9-20) mg/dL Creatinine 1.36 H (0.66-1.25) mg/dL Estimated GFR 49.9 L (>60) mL/min BUN/Creatinine Ratio 25.0 H (6-22) Glucose 88 D (80-110) mg/dL Lactate 2.4 H (0.7-2.1) mmol/L Calcium 8.5 (8.4-10.2) mg/dL Ferritin 577 H (18-464) ng/mL Total Bilirubin 0.7 (0.2-1.3) mg/dL AST 56 (17-59) IU/L ALT 50 H (<50) IU/L Alkaline Phosphatase 86 (38-126) U/L Lactate Dehydrogenase 628 H (313-618) U/L Total Creatine Kinase 33 L (55-170) U/L CK-MB (CK-2) TNP CK-MB (CK-2) Rel Index TNP Troponin I < 0.012 (0.01-0.034) ng/mL C-Reactive Protein 11.5 H (<1.0) mg/dL NT-Pro-B Natriuret Pep 1880 H (<450) pg/mL Total Protein 6.2 L (6.3-8.2) g/dL Albumin 2.9 L (3.5-5.0) g/dL Globulin 3.3 (1.7-4.1) g/dL Albumin/Globulin Ratio 0.9 L (1.0-2.8) Procalcitonin 0.19 (<0.5) ng/mL Chlamy pneumoniae PCR (Not Detect) Adenovirus (PCR) (Not Detect) B. pertussis DNA (PCR) (Not Detecte) B.parapertussis DNA PCR (Not Detecte) Coronavirus OC43 (PCR) (Not Detect) Coronavirus HKU1 (PCR) (Not Detect) Coronavirus 229E (PCR) (Not Detect) SARS-CoV-2 (PCR) (Negative) Coronavirus NL63 (PCR) (Not Detect) Human Metapneumovir PCR (Not Detect) Influenza Type A (PCR) (Not Detect) Influenza Type B (PCR) (Not Detect) M. pneumoniae (PCR) (Not Detect) Parainfluenza 1 (PCR) (Not Detect) Parainfluenza 2 (PCR) (Not Detect) Parainfluenza 3 (PCR) (Not Detect) Parainfluenza 4 (PCR) (Not Detect) RSV (PCR) (Not Detect) Entero/Rhino (PCR) (Not Detect) 07/01/20 07/01/20 Range/Units 03:47 04:00 WBC (4.5-11.0) X10^3/uL RBC (4.5-5.9) X10^6/uL Hgb (13.5-17.5) g/dL Hct (41-53) % MCV (80-100) fL MCH (26-34) PG MCHC (30-36) % RDW (11.6-14.8) % Plt Count (150-400) X10^3/uL Neut % (Auto) (50-75) % Lymph % (Auto) (25-40) % [place] % (Auto) (3-14) % Eos % (Auto) (2-4) % Baso % (Auto) (0-2) % Neut # (Auto) (8210-0829) /uL Lymph # (Auto) (3949-9831) /uL [place] # (Auto) (0-900) /uL Eos # (Auto) (0-450) /uL Baso # (Auto) (0-100) /uL D-Dimer (<230) ng/mL ABG pH 7.48 H (7.35-7.45) ABG pCO2 28.9 L (35-45) mmHg ABG pO2 53 L (80-100) mmHg ABG HCO3 22 (22-26) mmol/L ABG Total CO2 23 (21-31) mmol/L ABG O2 Saturation 90 L (95-100) % ABG Base Excess -2.0 (-2-2) mmol/L FiO2 21 Sodium (137-145) mmol/L Potassium (3.4-5.1) mmol/L Chloride (98-107) mmol/L Carbon Dioxide (22-32) mmol/L BUN (9-20) mg/dL Creatinine (0.66-1.25) mg/dL Estimated GFR (>60) mL/min BUN/Creatinine Ratio (6-22) Glucose (80-110) mg/dL Lactate (0.7-2.1) mmol/L Calcium (8.4-10.2) mg/dL Ferritin (18-464) ng/mL Total Bilirubin (0.2-1.3) mg/dL AST (17-59) IU/L ALT (<50) IU/L Alkaline Phosphatase (38-126) U/L Lactate Dehydrogenase (313-618) U/L Total Creatine Kinase (55-170) U/L CK-MB (CK-2) CK-MB (CK-2) Rel Index Troponin I (0.01-0.034) ng/mL C-Reactive Protein (<1.0) mg/dL NT-Pro-B Natriuret Pep (<450) pg/mL Total Protein (6.3-8.2) g/dL Albumin (3.5-5.0) g/dL Globulin (1.7-4.1) g/dL Albumin/Globulin Ratio (1.0-2.8) Procalcitonin (<0.5) ng/mL Chlamy pneumoniae PCR Not detected (Not Detect) Adenovirus (PCR) Not detected (Not Detect) B. pertussis DNA (PCR) Not detected (Not Detecte) B.parapertussis DNA PCR Not detected (Not Detecte) Coronavirus OC43 (PCR) Not detected (Not Detect) Coronavirus HKU1 (PCR) Not detected (Not Detect) Coronavirus 229E (PCR) Not detected (Not Detect) SARS-CoV-2 (PCR) Detected H (Negative) Coronavirus NL63 (PCR) Not detected (Not Detect) Human Metapneumovir PCR Not detected (Not Detect) Influenza Type A (PCR) Not detected (Not Detect) Influenza Type B (PCR) Not detected (Not Detect) M. pneumoniae (PCR) Not detected (Not Detect) Parainfluenza 1 (PCR) Not detected (Not Detect) Parainfluenza 2 (PCR) Not detected (Not Detect) Parainfluenza 3 (PCR) Not detected (Not Detect) Parainfluenza 4 (PCR) Not detected (Not Detect) RSV (PCR) Not detected (Not Detect) Entero/Rhino (PCR) Not detected (Not Detect) Discharge Plan Departure Patient Disposition: Admitted As Inpatient Clinical Impression: Acute hypoxemic respiratory failure, Weakness, Pneumonia due to 2019 novel coronavirus
[2020-07-01 03:39] LABS: COVID19 -Nasal RAPID POSITIVE (Negative)
[2020-07-01 03:49] LABS: Add Manual Diff / Slide Review NO; Basophils Absolute Auto 100 /uL (0-100); Basophils Percent Auto 0.9 % (0-2); Eosinophils Absolute Auto 200 /uL (0-450); Eosinophils Percent Auto 2.2 % (2-4); Hematocrit 34.3 % (41-53); Hemoglobin 11.2 g/dL (13.5-17.5); Lymphocytes Absolute Auto 700 /uL (1100-4500); Lymphocytes Percent Auto 10.2 % (25-40); Mean Corpuscular HGB Conc 32.6 % (30-36); Mean Corpuscular Hemoglobin 28.9 PG (26-34); Mean Corpuscular Volume 88.6 fL (80-100); Monocytes Absolute Auto 400 /uL (0-900); Monocytes Percent Auto 5.4 % (3-14); Neutrophils Absolute Auto 5800 /uL (1500-7000); Neutrophils Percent Auto 81.3 % (50-75); Platelet Count 283 X10^3/uL (150-400); Red Blood Cell Count 3.87 X10^6/uL (4.5-5.9); Red Cell Distribution Width 14.9 % (11.6-14.8); White Blood Cell Count 7.1 X10^3/uL (4.5-11.0)
[2020-07-01] MEDS: ACETAMINOPHEN 325 MG TABLET 650 MG PO (03:50)
[2020-07-01 03:53] LABS: Lactate (Lactic Acid) 2.4 mmol/L (0.7-2.1)
[2020-07-01 03:54] LABS: Lactate Dehydrogenase 628 U/L (313-618)
[2020-07-01 03:56] LABS: Alanine Aminotransferase 50 IU/L (<50); Albumin 2.9 g/dL (3.5-5.0); Albumin Globulin Ratio 0.9 (1.0-2.8); Alkaline Phosphatase 86 U/L (38-126); Aspartate Aminotransferase 56 IU/L (17-59); Bilirubin Total 0.7 mg/dL (0.2-1.3); Blood Urea Nitrogen 34 mg/dL (9-20); Calcium 8.5 mg/dL (8.4-10.2); Carbon Dioxide 26 mmol/L (22-32); Chloride 109 mmol/L (98-107); Creatine Kinase 33 U/L (55-170); Estimated Glomerular Filt Rate 49.9 mL/min (>60); Globulin 3.3 g/dL (1.7-4.1); Glucose 88 mg/dL (80-110); HEMOLYSIS < 15 (0-50); Potassium 4.2 mmol/L (3.4-5.1); Sodium 140 mmol/L (137-145); Total Protein 6.2 g/dL (6.3-8.2)
[2020-07-01 03:59] LABS: D Dimer 1018 ng/mL (<230)
[2020-07-01 04:06] LABS: NT-proBNP (BNP-Adult 18+) 1880 pg/mL (<450); Troponin I < 0.012 ng/mL (0.01-0.034)
[2020-07-01 04:07] LABS: C-Reactive Protein Quant 11.5 mg/dL (<1.0)
[2020-07-01 04:10] LABS: PCO2 ABG 28.9 mmHg (35-45); pH ABG 7.48 (7.35-7.45)
[2020-07-01 04:11] LABS: Procalcitonin 0.19 ng/mL (<0.5)
[2020-07-01 04:11] LABS: Fractionated Inspired Oxygen 21; HCO3 ABG 22 mmol/L (22-26); Oxygen Saturation ABG 90 % (95-100); PO2 ABG 53 mmHg (80-100); TCO2 ABG 23 mmol/L (21-31)
--- NOTE | 2020-07-01 04:15 | DI.CT.S_ITS ---
PROCEDURE: CT ANGIO CHEST PE PROTOCOL INDICATIONS: SOB, hypoxia, significant increase in Dimer, recent hospital TECHNIQUE: After the administration of intravenous contrast, 2 mm thick sections acquired from the pulmonary apices to the posterior costophrenic angles. 3-dimensional maximum intensity projection (MIP) coronal and sagittal reformats were then acquired through the thorax. For radiation dose reduction, the following was used: automated exposure control, adjustment of mA and/or kV according to patient size. COMPARISON: None. FINDINGS: Image quality: Excellent. Pulmonary arteries: Pulmonary arteries are normal in size, and demonstrate no intraluminal filling defects to suggest central pulmonary embolism. Lungs and pleura: Lungs are abnormal, with a patchy alveolitis pattern involving the lungs bilaterally, generally symmetric, and there is a very small bilateral pleural effusion associated. No pleural effusions or pneumothorax. Central and peripheral airways are patent. Mediastinum: Heart size is normal, without pericardial effusion. No mediastinal or hilar adenopathy. Thoracic aorta is normal in caliber and enhancement. Esophagus is normal in caliber, without hiatal hernia. Bones and chest wall: No suspicious bony lesions. Ribs and thoracic spine appear intact throughout. Thyroid gland has been resected on the left. No axillary or supraclavicular adenopathy. Abdomen: Visualized upper abdominal solid organs appear normal in the early arterial phase of enhancement. IMPRESSION: Patchy bilateral pneumonitis pattern consistent with viral/atypical pneumonia. No pulmonary embolus found. Prior left thyroidectomy. Slight bilateral pleural effusions. Dictated by: Riki Navarro M.D. on 07/01/2020 at 10:04 Approved by: Riki Navarro M.D. on 07/01/2020 at 10:06
[2020-07-01] MEDS: DEXAMETHASONE 10 MG/ML VIAL 6 MG IV (04:26)
[2020-07-01 04:29] LABS: Ferritin 577 ng/mL (18-464)
[2020-07-01 04:52] LABS: Adenovirus Not Detected (Not Detect); B. parapertussis Not Detected (Not Detecte); Bordetella pertussis Not Detected (Not Detecte); Chlamydophila pneumoniae Not Detected (Not Detect); Coronavirus 229E Not Detected (Not Detect); Coronavirus HKU1 Not Detected (Not Detect); Coronavirus NL 63 Not Detected (Not Detect); Coronavirus OC43 Not Detected (Not Detect); Human Metapneumovirus Not Detected (Not Detect); Human Rhinovirus/Enterovirus Not Detected (Not Detect); Influenza A Not Detected (Not Detect); Influenza B Not Detected (Not Detect); Mycoplasma pneumoniae Not Detected (Not Detect); Parainfluenza Virus 1 Not Detected (Not Detect); Parainfluenza Virus 2 Not Detected (Not Detect); Parainfluenza Virus 3 Not Detected (Not Detect); Parainfluenza Virus 4 Not Detected (Not Detect); Respiratory Syncytial Virus Not Detected (Not Detect); SARS- CoV-2 Detected (Not Detecte)
[2020-07-01 05:39] LABS: Reflexed Lactate in 2 Hours Y
--- NOTE | 2020-07-01 05:52 | PM.HP.1 ---
History of Present Illness History of Present Illness Date Patient Seen: 07/01/20 Time Patient Seen: 05:53 Chief complaint: weakness Narrative: Patient is a 84-year-old male with a past medical history of atrial fibrillation, diabetes type 2, hypothyroidism, CKD stage 3, orthostatic hypotension who comes in with shortness of breath. Patient had been admitted on 06/22/2020 acute respiratory failure COVID pneumonia and discharged on 06/29/2020. During his hospitalization he eventually escalated to needing heme unified high-flow nasal cannula but never BiPAP or intubation. During his discharge he refused to be discharged to a SNF or rehabilitation unit and demanded to go home. Upon returning to the ED the patient reports having very little access to any meaningful help at home as his also has COVID pneumonia. He has no home nursing assistance. He has been unable to get out of bed due to profound weakness and shortness of breath. He experienced tachypnea, rapid heart rate and desaturations into the 80s at home. He has had subjective fever and chills and poor appetite. He admits to being resistant to any discharge to SNF during prior hospitalization but states he may have changed his mind this time around. Patient's vital signs upon admit temp 98.7?, BP 122/66, HR 97, R 18, O2 saturation 99% on 4 L nasal cannula. Patient's labs are as follows ABGs pH 7.48, pCO2 28.9, PO2 53, O2 saturation 90%, FiO2 of 21, HGB 11.2, HCT 34.3, chloride 109, BUN 34, creatinine 1.36, RBC 3.87, RDW 14.9, ferritin 577, EGFR 49.9, BUN creatinine ratio 25, lactate 2.4, proBNP 1880, albumin 2.9, CRP 11.5, lactate Dehy 628, total creatinine kinase 33, procalcitonin within normal limits. Chest CTA was negative for PE. Patient admitted for acute respiratory failure, COVID pneumonia. 06/22/20 HPI, per Dr. Vaca: Mr. Heard is an 84-year-old male with a past medical history of atrial fibrillation, diabetes type 2, hypothyroidism, CKD stage 3, orthostatic hypotension who comes in with shortness of breath. Patient apparently had been diagnosed with COVID approximately 1 week ago on June 14 [facility] [place]. Since then she has been at home and he says that he has been having worsening shortness of breath. He has who is also positive for COVID who just was released from the hospital. He was not having significant coughing, not having significant fevers, he did have some nausea but was having no vomiting or diarrhea. He has had constipation which is his baseline. Apparently he has been struggling with getting sleep recently. Because of his worsening symptoms EMS was called and initially found him to have O2 saturation in the low 80s was placed on nasal cannula at 3 L. In the ER workup was done he was noted to be afebrile with normal blood pressures he was in tachycardic in the 100s to 120s in atrial fibrillation and he was noted to have mild tachypnea. Labs were drawn and he was noted to have a normal white count with low lymphocytes. Mildly low hemoglobin 11.5. INR of 2.1 and D-dimer of 686. Creatinine was 1.49, ferritin 1270, bilirubin 1.6, AST and ALT were mildly elevated, LDH was 1004, troponin was 0.038, CRP 18.1, and BNP was 4640. His COVID test was positive, and his chest x-ray showed bilateral interstitial infiltrates. In the ER he was given gentle fluids, given IV dexamethasone, and IV remdesivir and he was admitted for further treatment. Patient History Medical History Cancer of left ear Chronic atrial fibrillation with RVR Community acquired pneumonia COVID-19 Diabetes E coli infection Hernia of abdominal cavity Hypothyroidism Inguinal hernia bilateral, non-recurrent Melanoma Prostate cancer Right eye injury Surgical History History of throat surgery History of transurethral resection of prostate Status post bilateral hernia repair Family & Social History Social History: household members lives with his and grown son. Safety & Behavioral: Feels Safe in Current Yes Environment Tobacco & Substance use: Smoking Status Never smoker alcohol intake never alcohol intake frequency 0-2 drinks per day Substance Use Type does not use Meds Home Medications and Allergies Home Medications Medication Instructions Recorded Confirmed Type tramadol 100 mg PO QID PRN #0 02/03/16 06/22/20 History levothyroxine 50 mcg PO MOTUWETHFRSA 09/16/17 06/22/20 History warfarin [Coumadin] 5 mg PO QACDINNER 07/20/18 06/22/20 History ferrous sulfate [Iron (ferrous 325 mg PO DAILY 07/11/19 06/22/20 History sulfate)] digoxin 0.125 mg PO DAILY #30 tab 10/01/19 06/22/20 Rx metoprolol tartrate 12.5 mg PO BID #30 tab 10/01/19 06/22/20 Rx midodrine 5 mg PO 0600,1200,1800 #15 tab 10/01/19 06/22/20 Rx warfarin 5 mg PO QPM 01/05/20 06/22/20 History docusate sodium 100 mg PO DAILY 01/06/20 06/22/20 History furosemide 80 mg PO DAILY 01/06/20 06/22/20 History insulin glargine [Lantus Solostar 35 unit SUBCUT BID #15 ml 06/29/20 Rx U-100 Insulin] Allergies Allergy/AdvReac Type Severity Reaction Status Date / Time Penicillins Allergy Unknown Verified 06/22/20 09:32 Review of Systems Review of Systems ROS: Yes All systems reviewed with the patient and are negative except as otherwise documented Constitutional Constitutional: Reports body ache(s), Reports chills, Reports fatigue, Reports fever(s), Reports malaise and Reports poor appetite Cardiovascular Cardiovascular: Reports dyspnea and Reports dyspnea on exertion Respiratory Respiratory: Reports dyspnea and Reports dyspnea on exertion Endocrine Endocrine: Reports fatigue Exam Vital Signs (past 8 hours): - 07/01/20 03:19 07/01/20 04:00 07/01/20 04:30 Temperature 98.7 F Pulse Rate 110 H 87 100 H Respiratory Rate 26 H 20 19 Blood Pressure 140/87 128/67 132/69 Pulse Oximetry 92 94 100 07/01/20 04:52 07/01/20 05:00 07/01/20 05:30 Temperature Pulse Rate 102 H 97 H 100 H Respiratory Rate 14 18 20 Blood Pressure 103/67 122/66 143/75 H Pulse Oximetry 99 99 94 Oxygen Delivery Method Nasal Cannula Oxygen Flow Rate 4 Narrative Exam Narrative: GENERAL: [84] year old patient appears stated age. Well-nourished, well-developed patient in obvious distress with significant work of breathing just from movement off ambulance cart HR bumps to 130s, RR into 30s and SpO2 to 89% HEAD: Atraumatic. Normocephalic. EYES: Pupils equal round and reactive. Extraocular motions intact. No scleral icterus. No injection or drainage. ENT: Nose without bleeding, purulent drainage. Throat without erythema, tonsillar hypertrophy or exudate. Airway patent. NECK: Trachea midline. Non tender CARDIOVASCULAR: Tachycardic but regular rhythm without murmurs, gallops, or rubs. RESPIRATORY: Tachypnea, use of accessory muscles, crackles in B/L bases GASTROINTESTINAL: Abdomen soft, non-tender, nondistended. EXTREMITIES: No edema or joint tenderness. BACK: Nontender without deformity or crepitance. No flank tenderness. NEURO: AOx3. SKIN: No rash or erythema of visible areas Objective Labs Result Diagrams: 07/01/20 03:30 07/01/20 03:30 Labs: Laboratory Results - last 24 hr 07/01/20 07/01/20 07/01/20 03:17 03:30 03:30 WBC 7.1 RBC 3.87 L Hgb 11.2 L Hct 34.3 L MCV 88.6 MCH 28.9 MCHC 32.6 RDW 14.9 H Plt Count 283 Neut % (Auto) 81.3 H Lymph % (Auto) 10.2 L [place] % (Auto) 5.4 Eos % (Auto) 2.2 Baso % (Auto) 0.9 Neut # (Auto) 5800 Lymph # (Auto) 700 L [place] # (Auto) 400 Eos # (Auto) 200 Baso # (Auto) 100 D-Dimer 1018 H ABG pH ABG pCO2 ABG pO2 ABG HCO3 ABG Total CO2 ABG O2 Saturation ABG Base Excess FiO2 Sodium Potassium Chloride Carbon Dioxide BUN Creatinine Estimated GFR BUN/Creatinine Ratio Glucose Lactate Calcium Ferritin Total Bilirubin AST ALT Alkaline Phosphatase Lactate Dehydrogenase Total Creatine Kinase CK-MB (CK-2) CK-MB (CK-2) Rel Index Troponin I C-Reactive Protein NT-Pro-B Natriuret Pep Total Protein Albumin Globulin Albumin/Globulin Ratio Procalcitonin Chlamy pneumoniae PCR Adenovirus (PCR) B. pertussis DNA (PCR) B.parapertussis DNA PCR Coronavirus OC43 (PCR) Coronavirus HKU1 (PCR) Coronavirus 229E (PCR) SARS-CoV-2 (PCR) Positive H Coronavirus NL63 (PCR) Human Metapneumovir PCR Influenza Type A (PCR) Influenza Type B (PCR) M. pneumoniae (PCR) Parainfluenza 1 (PCR) Parainfluenza 2 (PCR) Parainfluenza 3 (PCR) Parainfluenza 4 (PCR) RSV (PCR) Entero/Rhino (PCR) 07/01/20 07/01/20 07/01/20 03:30 03:30 03:30 WBC RBC Hgb Hct MCV MCH MCHC RDW Plt Count Neut % (Auto) Lymph % (Auto) [place] % (Auto) Eos % (Auto) Baso % (Auto) Neut # (Auto) Lymph # (Auto) [place] # (Auto) Eos # (Auto) Baso # (Auto) D-Dimer ABG pH ABG pCO2 ABG pO2 ABG HCO3 ABG Total CO2 ABG O2 Saturation ABG Base Excess FiO2 Sodium 140 Potassium 4.2 Chloride 109 H Carbon Dioxide 26 BUN 34 H Creatinine 1.36 H Estimated GFR 49.9 L BUN/Creatinine Ratio 25.0 H Glucose 88 D Lactate 2.4 H Calcium 8.5 Ferritin 577 H Total Bilirubin 0.7 AST 56 ALT 50 H Alkaline Phosphatase 86 Lactate Dehydrogenase 628 H Total Creatine Kinase 33 L CK-MB (CK-2) TNP CK-MB (CK-2) Rel Index TNP Troponin I < 0.012 C-Reactive Protein 11.5 H NT-Pro-B Natriuret Pep 1880 H Total Protein 6.2 L Albumin 2.9 L Globulin 3.3 Albumin/Globulin Ratio 0.9 L Procalcitonin 0.19 Chlamy pneumoniae PCR Adenovirus (PCR) B. pertussis DNA (PCR) B.parapertussis DNA PCR Coronavirus OC43 (PCR) Coronavirus HKU1 (PCR) Coronavirus 229E (PCR) SARS-CoV-2 (PCR) Coronavirus NL63 (PCR) Human Metapneumovir PCR Influenza Type A (PCR) Influenza Type B (PCR) M. pneumoniae (PCR) Parainfluenza 1 (PCR) Parainfluenza 2 (PCR) Parainfluenza 3 (PCR) Parainfluenza 4 (PCR) RSV (PCR) Entero/Rhino (PCR) 07/01/20 07/01/20 03:47 04:00 WBC RBC Hgb Hct MCV MCH MCHC RDW Plt Count Neut % (Auto) Lymph % (Auto) [place] % (Auto) Eos % (Auto) Baso % (Auto) Neut # (Auto) Lymph # (Auto) [place] # (Auto) Eos # (Auto) Baso # (Auto) D-Dimer ABG pH 7.48 H ABG pCO2 28.9 L ABG pO2 53 L ABG HCO3 22 ABG Total CO2 23 ABG O2 Saturation 90 L ABG Base Excess -2.0 FiO2 21 Sodium Potassium Chloride Carbon Dioxide BUN Creatinine Estimated GFR BUN/Creatinine Ratio Glucose Lactate Calcium Ferritin Total Bilirubin AST ALT Alkaline Phosphatase Lactate Dehydrogenase Total Creatine Kinase CK-MB (CK-2) CK-MB (CK-2) Rel Index Troponin I C-Reactive Protein NT-Pro-B Natriuret Pep Total Protein Albumin Globulin Albumin/Globulin Ratio Procalcitonin Chlamy pneumoniae PCR Not detected Adenovirus (PCR) Not detected B. pertussis DNA (PCR) Not detected B.parapertussis DNA PCR Not detected Coronavirus OC43 (PCR) Not detected Coronavirus HKU1 (PCR) Not detected Coronavirus 229E (PCR) Not detected SARS-CoV-2 (PCR) Detected H Coronavirus NL63 (PCR) Not detected Human Metapneumovir PCR Not detected Influenza Type A (PCR) Not detected Influenza Type B (PCR) Not detected M. pneumoniae (PCR) Not detected Parainfluenza 1 (PCR) Not detected Parainfluenza 2 (PCR) Not detected Parainfluenza 3 (PCR) Not detected Parainfluenza 4 (PCR) Not detected RSV (PCR) Not detected Entero/Rhino (PCR) Not detected Assessment & Plan Assessment & Plan narrative: This patient requires acute care inpatient hospital readmission management for acute respiratory failure due to COVID pneumonia,after hospitalization from 06/23/2019-06/29/2020 and then failing outpatient home management which the patient demanded upon discharge. The patient is at much higher risk for medical and surgical complications because of his history of AFib, hypothyroidism, type 2 diabetes, CKD stage 3, orthostatic hypotension. The patient's is also home with positive COVID infection. These factors increase the difficulty and complexity of medical and surgical interventions and increases the chances of poor outcomes such as morbidity and mortality. 1. Acute respiratory failure from from COVID pneumonia -Patient's vital signs upon admit temp 98.7?, BP 122/66, HR 97, R 18, O2 saturation 99% on 4 L nasal cannula. Patient's labs are as follows ABGs pH 7.48, pCO2 28.9, PO2 53, O2 saturation 90%, FiO2 of 21, HGB 11.2, HCT 34.3, chloride 109, BUN 34, creatinine 1.36, RBC 3.87, RDW 14.9, ferritin 577, EGFR 49.9, BUN creatinine ratio 25, lactate 2.4, proBNP 1880, albumin 2.9, CRP 11.5, lactate Dehy 628, total creatinine kinase 33, procalcitonin within normal limits. Chest CTA was negative for PE. -has positive COVID test, has desaturations on room air to the 80s, and chest x-ray supports diagnosis of pneumonia -has already received the IV remdesivir and IV dexamethasone in the ER -will continue to treat him with scheduled daily dexamethasone 6 mg and remdesivir 100 mg daily -patient to be monitored on tele medicine, vital signs q.4 hours, intake and output monitored Q shift, weight measure daily, diet: Regular - -monitor patient for acute WA, ischemic stroke, PE, DVT, venous thrombosis, hyperglycemia an increased risk of bacterial infections, fungal and strongyloides -Supplemental NC -maintain SaO2 greater than 90%, check peak flow expiratory flow q.day 1-2 days. -will encourage the patient to self prone -has very elevated inflammatory markers with elevated CRP, BMP, ferritin, LFTs, LDH, and troponin and will continue to trend these lab values for now daily discussed with the son Beka who is also on sugar but who is his POA and believes that he would want to be full code 2. AFib with RVR, chronic, not present on admission -patient on telemetry -will continue him on his home dose of digoxin, metoprolol -will continue him on his home dose of warfarin, INR shows good control 3. Type 2 diabetes, insulin-dependent, acute on chronic, well controlled not present on admission -patient on diabetes protocol, monitor for hypoglycemia -will continue him on insulin sliding scale for now -may need additional insulin coverage given that he was starting him on dexamethasone and he is acutely ill 4. CKD stage 3, acute on chronic, present on admission -chloride 109, BUN 34, creatinine 1.36, RBC 3.87, RDW 14.9, ferritin 577, EGFR 49.9, BUN creatinine ratio 25 -patient today has creatinine of 1.36. To be near his baseline will attempt to avoid any significant fluid shifts, and avoid nephrotoxins -will monitor labs daily 5. Orthostatic hypertension, chronic, not present on admission, well controlled -will continue on his midodrine 6. Hypothyroidism, chronic, not present on admission, control unknown -continue home Synthroid 7. Anemia, acute on chronic, present on admission -HGB 11.2, HCT 34.3-will monitor labs daily and trend DVT prophylaxis: Continue full-dose warfarin Code status:Full Code Surrogate: Son Beka is POA with phone number [phone]. DVT VTE prophylaxis: Continue patient's home warfarin and SCDs Scores SOFA PaO2/FIO2: < 300 mmHg Platelets: >= 150 Bilirubin: < 1.2 mg/dL Hypotension: MAP >= 70 mmHg [place] Coma Scale: 15 Renal: Creatinine 1.2-1.9 mg/dL SOFA Score: 3 Wells' Criteria for PE Clinical signs and symptoms of DVT: No PE is #1 Dx or equally likely: No Heart rate > 100: No Immobilization at least 3 days or surg in previous 4 weeks: Yes History of PE or DVT: No Hemoptysis: No Malignancy w/Treatment within 6 months or palliative: No Wells' PE Score total: 1.5
[2020-07-01 06:03] LABS: Magnesium 2.2 mg/dL (1.6-2.3)
[2020-07-01 06:15] LABS: Lactate 2HR (Lactic Acid Rflx) 1.4 mmol/L (0.7-2.1)
[2020-07-01] MEDS: METOPROLOL IR 25 MG TABLET 12.5 MG PO ×2 (08:28→21:46)
[2020-07-01] MEDS: DOCUSATE 100 MG CAPSULE PO (08:29)
[2020-07-01] MEDS: INSULIN GLARGINE 100 UNIT/ML 3ML PEN 35 UNIT SUBCUT ×2 (08:29→21:58)
[2020-07-01] MEDS: DIGOXIN 0.125 MG TABLET PO (08:30)
[2020-07-01] MEDS: SODIUM CHLORIDE 0.9% FLUSH 10 ML IV ×2 (08:31→21:46)
[2020-07-01] MEDS: LEVOTHYROXINE 50 MCG TABLET PO (08:48)
--- NOTE | 2020-07-01 10:16 | CM.DANOTE ---
Addendum entered by Marya Sol R.N. 07/01/20 10:39: Discussed with patient over the phone having him go to prison facility. He is willing to go, his son, Beka, who confirmed with patient is his POA, resides in [place]. Beka's phone number is: [phone]. Marty gave permission to contact him as well for information if needed. Patient was inquiring as far as the cost of transportation. Called [facility] member services. Spoke to Berna at [facility]. Her phone number is: [phone]. Patient would make a co-payment of $150.00 for ambulance. Mary, elementary assistant teacher, has left messages with [facility] and [facility] to see if they can accept. P.T. and O.T. have worked with patient and will fax over notes when completed to [facility]. Original Note: DCP: Case received, EMR reviewed and called patient from his room. Patient was also here a couple of days ago, and am familiar with his case. Introduced self and role over the phone. Discussed discharge planning. DCP assessment completed with information currently available. Patient is an 84 year old male who admitted early this morning to the care of the hospitalist team. PCP: Dr. Dangelo. Payer: confirmed: [facility]. Patient came to the hospital via ambulance secondary to increased weakness secondary to COVID. Patient diagnosed with acute respiratory failure, secondary to COVID. He is now on room air. Discussed patient during team rounds, and he is medically for discharge, pending accepting facility. Isabel Cameron from [facility] called, and stated that they will have to start over to reauthorize for prison. He had been discharged from here Wednesday, and went home with [facility], since he originally did not want to go to prison, and was weak, and unable to care for himself. His was not able to give patient the assistance needed. Isabel indicated that she will need updated H&P, and P.T/O.T. notes. Mary, elementary assistant teacher, is faxing over H&P, and will also fax P.T notes when completed. She is aware that there are two facilities that care management is working on for getting patient placed, [facility] and [facility]. Mary will follow up with facilities to see if they can accept. Will call member services for [facility], their number is: [phone], so see what the cost would be for transport. P: DCP to work on getting patient placed today. If facility accepts, will update Isabel Cameron at [facility], but this will be as soon as she receives therapy notes. Marya Sol RN/Territory Outside Sales Manager
--- NOTE | 2020-07-01 10:27 | PT.IIE ---
Surgical History (Last Reviewed 07/01/20 @ 06:[address] [facility]) History of throat surgery History of transurethral resection of prostate Status post bilateral hernia repair Medical History (Last Reviewed 07/01/20 @ 06:[address] [facility]) Cancer of left ear Chronic atrial fibrillation with RVR Community acquired pneumonia COVID-19 Diabetes E coli infection Hernia of abdominal cavity Hypothyroidism Inguinal hernia bilateral, non-recurrent Melanoma Prostate cancer Right eye injury Physical Therapy Inpatient Evaluation/Re-Eval M1 PT/OT-IP Prior Functional Status Start: 07/01/20 09:09 Freq: NEEDED Status: Active Protocol: Document 07/01/20 10:36 CGR (Rec: 07/01/20 10:53 CGR [id number]) Medical Review Prior Functional Status Medical History Reviewed Yes Communication Pt is an effective verbal communicator but speaks softly . Mobility and Gait Pt was MOD I with 4WW or SPC indoors and 4WW for all outdoor mobility. Pt has grab bars and poles around his home to assist with mobility. Activities of Daily Living and IADL's Pt was IND to MOD I for most simple ADLs. Pt gets assist for LB dressing at times. Pts spouse does most of the cooking. Prior Functional Level (Other details) Pt lives with his son and . Recently the family has had domestic issues but they are all currently living in the home. Pt has 4 children total with his eldest living in [place] and is the POA. 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 Social History Household Members spouse Living Arrangements House Number of Floors (Floors) Two Floors Number of Stairs To Enter/Railing? ramp to enter and pt stays on the first level. Home Environment High Toilet,Walk in Shower, Built-In Shower Seat,Ramp Home Equipment Front Wheel Walker,Four Wheel Walker,Straight Cane,Hand Held Shower,Leather Sprayer,Sock Aid,Bed Rails,Grab Bars Near Toilet, Grab Bars In Shower Employment Status Retired M1 PT/OT-IP Prior Functional Status Start: 07/01/20 10:36 Freq: NEEDED Status: Active Protocol: Document 07/01/20 10:36 CGR (Rec: 07/01/20 10:53 CGR [id number]) Medical Review Prior Functional Status Medical History Reviewed Yes Communication Pt is an effective verbal communicator but speaks softly . Mobility and Gait Pt was MOD I with 4WW or SPC indoors and 4WW for all outdoor mobility. Pt has grab bars and poles around his home to assist with mobility. Activities of Daily Living and IADL's Pt was IND to MOD I for most simple ADLs. Pt gets assist for LB dressing at times. Pts spouse does most of the cooking. Prior Functional Level (Other details) Pt lives with his son and . Recently the family has had domestic issues but they are all currently living in the home. Pt has 4 children total with his eldest living in [place] and is the POA. 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 Social History Household Members spouse Living Arrangements House Number of Floors (Floors) Two Floors Number of Stairs To Enter/Railing? ramp to enter and pt stays on the first level. Home Environment High Toilet,Walk in Shower, Built-In Shower Seat,Ramp Home Equipment Front Wheel Walker,Four Wheel Walker,Straight Cane,Hand Held Shower,Leather Sprayer,Sock Aid,Bed Rails,Grab Bars Near Toilet, Grab Bars In Shower Employment Status Retired M2 PT-IP Current Condition Start: 07/01/20 09:09 Freq: NEEDED Status: Active Protocol: Document 07/01/20 10:27 AW (Rec: 07/01/20 11:05 AW [id number]) Physical Therapy Current Condition Current Condition Evaluation Date 07/01/20 Treatment Diagnosis COVID pneumonia; acute respiratory failure; impaired mobility Onset Date 06/22/20 Precautions Other Precautions COVID + precautions M3 PT-IP Subjective Start: 07/01/20 09:09 Freq: NEEDED Status: Active Protocol: Document 07/01/20 10:27 AW (Rec: 07/01/20 11:05 AW [id number]) Subjective Physical Therapy Visit Type Type Initial Evaluation Visit Start Time 09:53 Visit Stop Time 10:27 Total Visit Minutes 34 Notes Co-eval with OT due to limited activity tolerance Number of COMMAND POST SUPERINTENDENT Visits 0 Physical Therapy Visit Comments Patient Comments Pt is willing to participate with PT Patient Goals Pt is agreeable to SNF rehab Therapy Pain Assessment Pain When Pain Assessed During Mobility Pain Present Pain Present Pain Reported Location Back Scale Used not quantified M4 PT-IP Mobility and Gait Start: 07/01/20 09:09 Freq: NEEDED Status: Active Protocol: Document 07/01/20 10:27 AW (Rec: 07/01/20 11:05 AW [id number]) PT-Bed Mobility Assessment Rolling Type of Rolling Roll to Left Level of Assist Maximal Assistance,1 Person Assistance Supine to Sit Supine to Sit Maximum Assistance,2 Person Assistance,Bedrails Scooting Scooting to Edge of Bed Contact Guard Assistance PT-Transfer Assessment Sit to and From Stand Sit to and from Stand Moderate Assistance,2 Person Assistance,Use of Upper Extremities Equipment Transfer Assistive Device Gait Belt,Front Wheeled Walker Orthotic/Prosthetic Devices or Brace: No Transfers Transfer Destination Chair Transfer Technique Stand Step Pivot Transfer Ability Level of Assist Moderate Assistance,2 Person Assistance Comments Mobility Comments Pt was lying in bed as PT and OT arrived. SpO2 95% on room air. He needed max assist and use of the bed rail to roll to his left side and then max A x 2 for SL to sit transition. Pt rested with SpO2 94%. He stood from the bed with max cues and mod A x 2. Using FWW, he completed step pivot transfer to his right mod A x 2 with poor control of descent . SpO2 was steady at 95% but pt was winded and fatigued, unable to do any further mobility. Pt was positioned on the chair with call light and all needs in reach. Notably, monitor indicated several episodes of a fib during mobility with max HR of 136. Gait Assessment Comments Gait Comments Transfer only. Stair Climbing Assessment Comments Stair Climbing Comments Not assessed. Pt does not use stairs at home. PT-Balance Assessment Sitting Balance and Reactions Static Sitting Balance Ability Good Dynamic Sitting Balance Ability Fair Standing Balance and Reactions Static Standing Balance Ability Fair Dynamic Standing Balance Ability Poor Device Used FWW M5 PT-IP Objective Assessments Start: 07/01/20 09:09 Freq: NEEDED Status: Active Protocol: Document 07/01/20 10:27 AW (Rec: 07/01/20 11:05 AW [id number]) Orientation Orientation/Cognition Level of Alertness Lethargic Orientation Name,Day of Week,Place, Situation Language Function Ability Hard of Hearing Safety Awareness Decreased Safety Awareness Gross Range of Motion Lower Extremity ROM Assessment Within Functional Limits Strength Lower Extremity Strength Assessment Bilaterally Impaired Hip 3/5 Knee 3+/5 Ankle 3+/5 Muscle Tone Muscle Tone WNL Yes M6 PT-IP Treatment Start: 07/01/20 09:09 Freq: NEEDED Status: Active Protocol: Document 07/01/20 10:27 AW (Rec: 07/01/20 11:05 AW [id number]) Physical Therapy Treatment Education Education Provided Safety M7 PT-IP Assessment and Plan Start: 07/01/20 09:09 Freq: NEEDED Status: Active Protocol: Document 07/01/20 10:27 AW (Rec: 07/01/20 11:05 AW [id number]) PT Summary Assessment and Plan Potential Rehabilitation Potential Fair Status of Condition at Evaluation Stable Summary Impairments Pain,Strength,Balance,Bed Mobility,Transfers,Gait, Activity Tolerance Assessment Summary Marty is an 84 yo man re- admitted with COVID pneumonia. He discharged recently with home health against the PT and OT recommendation for SNF. He went home and was unable to mobilize sufficiently. At baseline, pt uses a SPC or 4WW for mobility and has chronic low back and hip pain affecting his function. On evaluation, pt required mod to max assist x 2 for bed mobility and transfer. Pt requires SNF rehab to improve strength and mobility independence. Goals Bed Mobility Goal Standby Assistance Transfer Goal Standby Assistance,Front Wheeled Walker Gait Goal Standby Assistance,Front Wheel Walker Gait Distance 50 Other Goals LTG: improve ambulation to 100 feet with 4WW SBA Days to Meet Goals 10 Frequency of Treatment Frequency Of Treatment Once a Day Treatment Plan Physical Therapy Treatment Plan Bed Mobility Training,Transfer Training,Gait Training, Therapeutic Exercise,Balance Retraining,Discharge Planning, Neuromuscular Re-ed Other Recommendations and Next Treatment ambulation Focus Precautions Other Precautions COVID + precautions Recommendations To Nursing Amount of Assist Needed 1 Person Assist Discharge Recommendations PT Discharge Recommendations SNF Rehab Transportation Needs at Discharge Wheelchair/Cabulance
--- NOTE | 2020-07-01 10:27 | OT.IP.EVAL ---
Past Medical History (Last Reviewed 07/01/20 @ 06:05 by Johanna Crowder [facility]) Cancer of left ear Chronic atrial fibrillation with RVR Community acquired pneumonia COVID-19 Diabetes E coli infection Hernia of abdominal cavity Hypothyroidism Inguinal hernia bilateral, non-recurrent Melanoma Prostate cancer Right eye injury Surgical History (Last Reviewed 07/01/20 @ 06:05 by Johanna Crowder [facility]) History of throat surgery History of transurethral resection of prostate Status post bilateral hernia repair Occupational Therapy Inpatient Evaluation/Re-Eval M1 PT/OT-IP Prior Functional Status Start: 07/01/20 09:09 Freq: NEEDED Status: Active Protocol: Document 07/01/20 10:36 CGR (Rec: 07/01/20 10:53 CGR [id number]) Medical Review Prior Functional Status Medical History Reviewed Yes Communication Pt is an effective verbal communicator but speaks softly . Mobility and Gait Pt was MOD I with 4WW or SPC indoors and 4WW for all outdoor mobility. Pt has grab bars and poles around his home to assist with mobility. Activities of Daily Living and IADL's Pt was IND to MOD I for most simple ADLs. Pt gets assist for LB dressing at times. Pts spouse does most of the cooking. Prior Functional Level (Other details) Pt lives with his son and . Recently the family has had domestic issues but they are all currently living in the home. Pt has 4 children total with his eldest living in [place] and is the POA. 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 Social History Household Members spouse Living Arrangements House Number of Floors (Floors) Two Floors Number of Stairs To Enter/Railing? ramp to enter and pt stays on the first level. Home Environment High Toilet,Walk in Shower, Built-In Shower Seat,Ramp Home Equipment Front Wheel Walker,Four Wheel Walker,Straight Cane,Hand Held Shower,Tier Lift Operator,Sock Aid,Bed Rails,Grab Bars Near Toilet, Grab Bars In Shower Employment Status Retired M1 PT/OT-IP Prior Functional Status Start: 07/01/20 10:36 Freq: NEEDED Status: Active Protocol: Document 07/01/20 10:36 CGR (Rec: 07/01/20 10:53 CGR [id number]) Medical Review Prior Functional Status Medical History Reviewed Yes Communication Pt is an effective verbal communicator but speaks softly . Mobility and Gait Pt was MOD I with 4WW or SPC indoors and 4WW for all outdoor mobility. Pt has grab bars and poles around his home to assist with mobility. Activities of Daily Living and IADL's Pt was IND to MOD I for most simple ADLs. Pt gets assist for LB dressing at times. Pts spouse does most of the cooking. Prior Functional Level (Other details) Pt lives with his son and . Recently the family has had domestic issues but they are all currently living in the home. Pt has 4 children total with his eldest living in [place] and is the POA. 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 Social History Household Members spouse Living Arrangements House Number of Floors (Floors) Two Floors Number of Stairs To Enter/Railing? ramp to enter and pt stays on the first level. Home Environment High Toilet,Walk in Shower, Built-In Shower Seat,Ramp Home Equipment Front Wheel Walker,Four Wheel Walker,Straight Cane,Hand Held Shower,Tier Lift Operator,Sock Aid,Bed Rails,Grab Bars Near Toilet, Grab Bars In Shower Employment Status Retired M2 OT-IP Current Condition Start: 07/01/20 10:36 Freq: Status: Active Protocol: Document 07/01/20 10:36 CGR (Rec: 07/01/20 10:53 [facility] [id number]) Occupational Therapy Current Condition Current Condition Evaluation Date 07/01/20 Treatment Diagnosis Covid positive, weakness Diagnosis Onset Date 07/01/20 M3 OT- IP Subjective and Pain Start: 07/01/20 10:36 Freq: Status: Active Protocol: Document 07/01/20 10:36 CGR (Rec: 07/01/20 10:53 [facility] [id number]) OT- Subjective Occupational Therapy Visit Type Type Initial Evaluation Visit Start Time 09:53 Visit Stop Time 10:27 Total Visit Minutes 34 Notes co-treat with P.T. OT Pain Assessment Pain When Pain Assessed During Mobility Pain Present Pain Present Pain Reported Location Back Scale Used did not rate Management Techniques Distraction,Modification of Treatment,Re-positioning M4 OT- IP ADL's Start: 07/01/20 10:36 Freq: Status: Active Protocol: Document 07/01/20 10:36 CGR (Rec: 07/01/20 10:53 CGR [id number]) OT [id number] Comments OT Self-Feeding Comments Not meal time OT ADL-Grooming Comments OT Grooming Comments Pt declined OT ADL-Oral Care Comments Oral Care Comments Pt declined, pt's dentures are not present OT ADL-Dressing General Eval Lower Body Dressing Ability Total Assistance Comments OT Dressing Comments Pt uses DME at home for LB dressing. OT ADL-Toileting Comments OT Toileting Comments Not performed, per nursing pt has needed assist with the urinal. OT ADL-Bathing Comments OT Bathing Comments Not performed M5 OT- IP IADL's Start: 07/01/20 10:36 Freq: Status: Active Protocol: Document 07/01/20 10:36 CGR (Rec: 07/01/20 10:53 CGR [id number]) OT-Instrumental Activities of Daily Living Deficits IADL Deficits Identified Deficits Home Safety Awareness Awareness of Need for Assistance at Home Decreased Awareness Ability to Problem Solve Emergency Unable to Problem Solve Situations Medication Management Medication Management Comments Concerns regarding pt's ability to perform safely Money Management Money Management Comments Concerns regarding pt's ability to perform safely Meal Preparation Meal Preparation Caregiver Provides Assist Instructor Creeler Instructor Creeler Caregiver Provides Assist Driving Driving Comments Pt does not drive. M6 OT- IP Functional Cognition Start: 07/01/20 10:36 Freq: Status: Active Protocol: Document 07/01/20 10:36 CGR (Rec: 07/01/20 10:53 CGR [id number]) Cognitive Factors Limiting Selfcare Function Cognitive Ability Level of Alertness Alert Patient Orientation Name,Age,Birthday,Month,Date, Year,Day of Week,Place, Situation Attention Span Ability Capable of Focused Attention, Capable of Sustained Attention Ability to Follow Commands Able to Follow One Step Commands with Increased Time, Able to Follow One Step Commands with Repetition OT- Vision and Hearing OT- Hearing Assessment OT- Hearing Assessment WFL OT- Vision Assessment Visual Attentiveness WFL Visual Convergence Impaired Vision Assessment Comments Pt had difficulty perform occular pursuits and performed without smooth pursuits. M7 OT- IP Mobility and Balance Start: 07/01/20 10:36 Freq: Status: Active Protocol: Document 07/01/20 10:36 CGR (Rec: 07/01/20 10:53 CGR [id number]) OT- Bed Mobility Assessment Rolling Type of Rolling Roll to Left Level of Assistance Moderate Assistance,Maximum Assistance,2 Person Assistance ,Head of Bed Elevated,Bedrails Supine to Sit Supine to Sit Assist Moderate Assistance,Maximum Assistance,2 Person Assistance ,Head of Bed Elevated,Bedrails Scooting Scooting to Edge of Bed Contact Guard Assistance, Bedrails OT-Transfer Assessment Sit to and From Stand Sit to and from Stand Moderate Assistance,Maximum Assistance,2 Person Assistance Transfers Transfer Ability Moderate Assistance,Maximum Assistance,2 Person Assistance Technique Transfer Destination Bed,Chair Transfer Technique Stand Step Pivot Devices Transfer Assistive Devices Gait Belt,Front Wheeled Walker Comments Mobility Comments Pt needed extra time for all activities and mod to max x 2. Pt with increased HR during activities but returns to low 100 with rest. O2 stats stayed above 95 throughout session. OT- Balance Assessment Sitting Balance and Reactions Static Sitting Balance Ability Fair Dynamic Sitting Balance Ability Fair M8 OT- IP Objective Assessments Start: 07/01/20 10:36 Freq: Status: Active Protocol: Document 07/01/20 10:36 CGR (Rec: 07/01/20 10:53 CGR [id number]) OT Gross Range of Motion Upper Extremity Range of Motion Assessment Within Functional Limits OT Strength Upper Extremity Strength Assessment Within Functional Limits Comments Strength Comments grossly 4- to 4/5 throughout. OT- Coordination Assessment Upper Extremity Finger to Nose Test Within Functional Limits Finger Tapping Test Within Functional Limits OT-Muscle Tone Assessment Muscle Tone WNL Yes OT Sensation Assessment Edema Edema Absent M9 OT- IP Assessment and Plan Start: 07/01/20 10:36 Freq: Status: Active Protocol: Document 07/01/20 10:36 CGR (Rec: 07/01/20 10:53 CGR [id number]) OT Summary Assessment and Plan Potential Rehabilitation Potential Good Analytic Complexity at Evaluation Moderate Summary OT Impairments Pain,Strength,Balance, Functional Mobility,Grooming, Dressing,Toileting,Bathing, Toilet Transfers,Shower Transfers,Activity Tolerance Progress Towards Goals Slow Progress due to Activity Tolerance Assessment Summary Pt presents as a moderate complexity evaluation s/p readmit for covid and weakness . Pt failed at home. Pt will benefit from SNF upon discharge. Pt is motivated to get stronger to return home. Goals Grooming Goal Independent Dressing Goal Independent,Tier Lift Operator,Sock Aid Toileting Goal Independent Bathing Goal Independent Toilet Transfer Goal Independent Shower Transfer Goal Independent Days to Meet Goals 30 Frequency of Treatment Frequency Of Treatment Once a Day Treatment Plan OT Treatment Plan ADL Training,Functional Mobility,Therapeutic Exercises ,Patient/Family Education, Discharge Planning Other Treatment Recommendations and Next ADLs seated in chair at sink Treatment Focus Discharge Recommendations OT Discharge Recommendations SNF Rehab Transportation Needs at Discharge Wheelchair/Cabulance
--- NOTE | 2020-07-01 10:49 | CM.DPNOTE ---
Addendum entered by Mary Bentley 07/01/20 11:26: Faxed updated H&P and PT/OT notes to Isabel at [facility]. Mary Bentley CM Asst. Original Note: Faxed clinicals to [facility] for SNF Authorization. Will send PT notes when available. Fax confirmation received. Mary Bentley CM Asst.
--- NOTE | 2020-07-01 10:57 | P.HP_ITS ---
History of Present Illness History of Present Illness Date Patient Seen: 07/01/20 Time Patient Seen: 07:57 Chief complaint: weakness Narrative: Mr. Heard is an 84-year-old male with a past medical history of atrial fibrillation, diabetes type 2, hypothyroidism, CKD stage 3, orthostatic hypotension who comes in with weakness. Patient was actually just in the [facility] and discharged two days ago after being admitted on 06/22/2020 for acute respiratory failure COVID pneumonia. He was discharge on 06/29/20. During his hospitalization he eventually escalated to briefly need high-flow nasal cannula but never BiPAP or intubation. He did get dexamethasone throughout his stay, and remdesivir as well. During his discharge he declined to be discharged to a SNF or rehabilitation unit despite recommendation to do so due to significant deconditioning. He was discharged off of oxygen. Once home he noted significant fatigue and weakness. He did not notice shortness of breath, coughing, fevers/chills. He primarily couldn't get out of bed and because of this called EMS. He had an pulse ox at home and noted one brief desaturation to 89% otherwise was in the mid 90s. Upon returning to the ED the patient reports having very little access to any meaningful help at home as his also has COVID pneumonia. He has no home nursing assistance. He has been unable to get out of bed due to profound weakness. He admits to being resistant to any discharge to SNF during prior hospitalization but states he may have changed his mind this time around. In the ER he was noted to have normal temperature and blood pressure. Heart rate in the 90s. He was initially placed on 4L NC but satting 99%. Upon arrival to the floor oxygen was discontinued and he was satting 93-94% in bed on room air. His ABG in ER did noted a PaO2 of 53 on room air. Otherwise labs are notable for creatinine 1.36, ferritin 577, lactate 2.4, proBNP 1880,CRP 11.5, lactate Dehy 628, total creatinine kinase 33, procalcitonin within normal limits. Chest CTA was negative for PE. COVID positive. He was admitted for further treatment. Patient History Medical History Cancer of left ear Chronic atrial fibrillation with RVR Community acquired pneumonia COVID-19 Diabetes E coli infection Hernia of abdominal cavity Hypothyroidism Inguinal hernia bilateral, non-recurrent Melanoma Prostate cancer Right eye injury Surgical History History of throat surgery History of transurethral resection of prostate Status post bilateral hernia repair Family & Social History Family History Mother Coronary artery disease Social History: household members spouse Prior Living Arrangements House Safety & Behavioral: Feels Safe in Current Yes Environment Been Physically Hurt or No Threatened By a Person Suicidal Ideation Description None Suicide Plan Description No Plan Tobacco & Substance use: Smoking Status Never smoker alcohol intake never alcohol intake frequency 0-2 drinks per day Substance Use Type does not use Meds Home Medications and Allergies Home Medications Medication Instructions Recorded Confirmed Type tramadol 100 mg PO QID PRN #0 02/03/16 07/01/20 History levothyroxine 50 mcg PO MOTUWETHFRSA 09/16/17 07/01/20 History warfarin [Coumadin] 5 mg PO QACDINNER 07/20/18 07/01/20 History ferrous sulfate [Iron (ferrous 325 mg PO DAILY 07/11/19 07/01/20 History sulfate)] digoxin 0.125 mg PO DAILY #30 tab 10/01/19 07/01/20 Rx metoprolol tartrate 12.5 mg PO BID #30 tab 10/01/19 07/01/20 Rx midodrine 5 mg PO 0600,1200,1800 #15 tab 10/01/19 07/01/20 Rx warfarin 5 mg PO QPM 01/05/20 07/01/20 History docusate sodium 100 mg PO DAILY 01/06/20 07/01/20 History furosemide 80 mg PO DAILY 01/06/20 07/01/20 History insulin glargine [Lantus Solostar 35 unit SUBCUT BID #15 ml 06/29/20 07/01/20 Rx U-100 Insulin] Allergies Allergy/AdvReac Type Severity Reaction Status Date / Time Penicillins Allergy Unknown Verified 06/22/20 09:32 Review of Systems Review of Systems Narrative: 14 systems reviewed and negative aside from what is noted in HPI. Exam Vital Signs (past 8 hours): - 07/01/20 03:19 07/01/20 04:00 07/01/20 04:30 Temperature 98.7 F Pulse Rate 110 H 87 100 H Respiratory Rate 26 H 20 19 Blood Pressure 140/87 128/67 132/69 Pulse Oximetry 92 94 100 07/01/20 04:52 07/01/20 05:00 07/01/20 05:30 Temperature Pulse Rate 102 H 97 H 100 H Respiratory Rate 14 18 20 Blood Pressure 103/67 122/66 143/75 H Pulse Oximetry 99 99 94 07/01/20 06:36 07/01/20 07:58 07/01/20 08:15 Temperature 98.5 F 97.4 F L Pulse Rate 94 H 98 H 90 Respiratory Rate 15 18 16 Blood Pressure 141/74 H 145/67 H Pulse Oximetry 94 94 93 Oxygen Delivery Method Room Air Oxygen Flow Rate 0 Narrative Exam Narrative: General: no acute distress HEENT: Has moist mucous membranes, trachea midline, no JVD Cardiovascular: irregularly irregular, no murmurs Pulmonary: clear bilaterally Abdomen: soft nontender nondistended, no organomegaly, normal bowel sounds Skin: Has scattered ecchymoses on his extremities Neuro: he is awake alert and oriented, moving all extremities Extremities: traced pitting edema bilateral feet Psych: he is cooperative, pleasant Objective Labs Result Diagrams: 07/01/20 03:30 07/01/20 03:30 Labs: Laboratory Results - last 24 hr 07/01/20 07/01/20 07/01/20 03:17 03:30 03:30 WBC 7.1 RBC 3.87 L Hgb 11.2 L Hct 34.3 L MCV 88.6 MCH 28.9 MCHC 32.6 RDW 14.9 H Plt Count 283 Neut % (Auto) 81.3 H Lymph % (Auto) 10.2 L [place] % (Auto) 5.4 Eos % (Auto) 2.2 Baso % (Auto) 0.9 Neut # (Auto) 5800 Lymph # (Auto) 700 L [place] # (Auto) 400 Eos # (Auto) 200 Baso # (Auto) 100 D-Dimer 1018 H ABG pH ABG pCO2 ABG pO2 ABG HCO3 ABG Total CO2 ABG O2 Saturation ABG Base Excess FiO2 Sodium Potassium Chloride Carbon Dioxide BUN Creatinine Estimated GFR BUN/Creatinine Ratio Glucose Lactate Calcium Magnesium Ferritin Total Bilirubin AST ALT Alkaline Phosphatase Lactate Dehydrogenase Total Creatine Kinase CK-MB (CK-2) CK-MB (CK-2) Rel Index Troponin I C-Reactive Protein NT-Pro-B Natriuret Pep Total Protein Albumin Globulin Albumin/Globulin Ratio Procalcitonin Nasal Screen MRSA (PCR) Chlamy pneumoniae PCR Adenovirus (PCR) B. pertussis DNA (PCR) B.parapertussis DNA PCR Coronavirus OC43 (PCR) Coronavirus HKU1 (PCR) Coronavirus 229E (PCR) SARS-CoV-2 (PCR) Positive H Coronavirus NL63 (PCR) Human Metapneumovir PCR Influenza Type A (PCR) Influenza Type B (PCR) M. pneumoniae (PCR) Parainfluenza 1 (PCR) Parainfluenza 2 (PCR) Parainfluenza 3 (PCR) Parainfluenza 4 (PCR) RSV (PCR) Entero/Rhino (PCR) 07/01/20 07/01/20 07/01/20 03:30 03:30 03:30 WBC RBC Hgb Hct MCV MCH MCHC RDW Plt Count Neut % (Auto) Lymph % (Auto) [place] % (Auto) Eos % (Auto) Baso % (Auto) Neut # (Auto) Lymph # (Auto) [place] # (Auto) Eos # (Auto) Baso # (Auto) D-Dimer ABG pH ABG pCO2 ABG pO2 ABG HCO3 ABG Total CO2 ABG O2 Saturation ABG Base Excess FiO2 Sodium 140 Potassium 4.2 Chloride 109 H Carbon Dioxide 26 BUN 34 H Creatinine 1.36 H Estimated GFR 49.9 L BUN/Creatinine Ratio 25.0 H Glucose 88 D Lactate 2.4 H Calcium 8.5 Magnesium Ferritin 577 H Total Bilirubin 0.7 AST 56 ALT 50 H Alkaline Phosphatase 86 Lactate Dehydrogenase 628 H Total Creatine Kinase 33 L CK-MB (CK-2) TNP CK-MB (CK-2) Rel Index TNP Troponin I < 0.012 C-Reactive Protein 11.5 H NT-Pro-B Natriuret Pep 1880 H Total Protein 6.2 L Albumin 2.9 L Globulin 3.3 Albumin/Globulin Ratio 0.9 L Procalcitonin 0.19 Nasal Screen MRSA (PCR) Chlamy pneumoniae PCR Adenovirus (PCR) B. pertussis DNA (PCR) B.parapertussis DNA PCR Coronavirus OC43 (PCR) Coronavirus HKU1 (PCR) Coronavirus 229E (PCR) SARS-CoV-2 (PCR) Coronavirus NL63 (PCR) Human Metapneumovir PCR Influenza Type A (PCR) Influenza Type B (PCR) M. pneumoniae (PCR) Parainfluenza 1 (PCR) Parainfluenza 2 (PCR) Parainfluenza 3 (PCR) Parainfluenza 4 (PCR) RSV (PCR) Entero/Rhino (PCR) 07/01/20 07/01/20 07/01/20 03:30 03:47 04:00 WBC RBC Hgb Hct MCV MCH MCHC RDW Plt Count Neut % (Auto) Lymph % (Auto) [place] % (Auto) Eos % (Auto) Baso % (Auto) Neut # (Auto) Lymph # (Auto) [place] # (Auto) Eos # (Auto) Baso # (Auto) D-Dimer ABG pH 7.48 H ABG pCO2 28.9 L ABG pO2 53 L ABG HCO3 22 ABG Total CO2 23 ABG O2 Saturation 90 L ABG Base Excess -2.0 FiO2 21 Sodium Potassium Chloride Carbon Dioxide BUN Creatinine Estimated GFR BUN/Creatinine Ratio Glucose Lactate Calcium Magnesium 2.2 Ferritin Total Bilirubin AST ALT Alkaline Phosphatase Lactate Dehydrogenase Total Creatine Kinase CK-MB (CK-2) CK-MB (CK-2) Rel Index Troponin I C-Reactive Protein NT-Pro-B Natriuret Pep Total Protein Albumin Globulin Albumin/Globulin Ratio Procalcitonin Nasal Screen MRSA (PCR) Chlamy pneumoniae PCR Not detected Adenovirus (PCR) Not detected B. pertussis DNA (PCR) Not detected B.parapertussis DNA PCR Not detected Coronavirus OC43 (PCR) Not detected Coronavirus HKU1 (PCR) Not detected Coronavirus 229E (PCR) Not detected SARS-CoV-2 (PCR) Detected H Coronavirus NL63 (PCR) Not detected Human Metapneumovir PCR Not detected Influenza Type A (PCR) Not detected Influenza Type B (PCR) Not detected M. pneumoniae (PCR) Not detected Parainfluenza 1 (PCR) Not detected Parainfluenza 2 (PCR) Not detected Parainfluenza 3 (PCR) Not detected Parainfluenza 4 (PCR) Not detected RSV (PCR) Not detected Entero/Rhino (PCR) Not detected 07/01/20 07/01/20 05:43 06:20 WBC RBC Hgb Hct MCV MCH MCHC RDW Plt Count Neut % (Auto) Lymph % (Auto) [place] % (Auto) Eos % (Auto) Baso % (Auto) Neut # (Auto) Lymph # (Auto) [place] # (Auto) Eos # (Auto) Baso # (Auto) D-Dimer ABG pH ABG pCO2 ABG pO2 ABG HCO3 ABG Total CO2 ABG O2 Saturation ABG Base Excess FiO2 Sodium Potassium Chloride Carbon Dioxide BUN Creatinine Estimated GFR BUN/Creatinine Ratio Glucose Lactate 1.4 Calcium Magnesium Ferritin Total Bilirubin AST ALT Alkaline Phosphatase Lactate Dehydrogenase Total Creatine Kinase CK-MB (CK-2) CK-MB (CK-2) Rel Index Troponin I C-Reactive Protein NT-Pro-B Natriuret Pep Total Protein Albumin Globulin Albumin/Globulin Ratio Procalcitonin Nasal Screen MRSA (PCR) Positive for mrsa H Chlamy pneumoniae PCR Adenovirus (PCR) B. pertussis DNA (PCR) B.parapertussis DNA PCR Coronavirus OC43 (PCR) Coronavirus HKU1 (PCR) Coronavirus 229E (PCR) SARS-CoV-2 (PCR) Coronavirus NL63 (PCR) Human Metapneumovir PCR Influenza Type A (PCR) Influenza Type B (PCR) M. pneumoniae (PCR) Parainfluenza 1 (PCR) Parainfluenza 2 (PCR) Parainfluenza 3 (PCR) Parainfluenza 4 (PCR) RSV (PCR) Entero/Rhino (PCR) Assessment & Plan Assessment & Plan narrative: Mr. Heard is an 84-year-old man past medical history of AFib, hypothyroidism, type 2 diabetes, CKD stage 3, orthostatic hypotension recently discharged after admission for COVID pneumonia now with inability to care for self at home. 1. COVID pneumonia - patient with no clear respiratory decompensation, is currently off oxygen. CTA shows no PE, stable bilateral infiltrates, COVID still positive. Labs appear stable from previous. Overall patient appears to have been unable to manage care at home due to significant decompensation in strength - given recent admission for COVID pneumonia and still elevated inflammatory markers will continue on dexamethasone 6mg IV, has already completed remdesivir - no evidence of any superimposed bacterial infection given no new consolidation on imaging, no new elevated WBC 2. Chronic AFib with RVR, RVR resolved -on digoxin and metoprolol for rate control -check INR daily -continue warfarin 5mg daily -resumed home furosemide 80 mg daily 3. Type 2 diabetes -restarting decadron -continue Lantus 35 U BID and follow up with Dr. Figueroa soon. Home dose is unclear. 4. CKD stage 3 -on admission has creatinine of 1.5 and has been stable thus far with a GFR of 48. 5. Orthostatic hypertension -will continue on his midodrine for now 6. Hypothyroidism -continue him on his home dose of Synthroid 7. Anemia -anemia near baseline with hgb 11.2 -baseline appears to be near 11-12 8. probable ALEJANDRINA - patient with desaturations when sleeping, improved when awake. Resolved by 06/29. IVF: none Diet: Diabetic DVT ppx: lovenox 40U SC daily Code: for now requesting full code. Son Beka is POA with phone number [phone]. Quality MIPS - Admit I confirm the patient?s Advance Care Plan is present, Code status is documented, Surrogate decision maker is in patient?s record [If Yes, STOP here]: Yes
[2020-07-01] MEDS: INSULIN ASPART 100 UNIT/ML INSULN PEN SUBCUT ×3 (13:05→21:50)
[2020-07-01] MEDS: MIDODRINE HCL 5 MG TABLET PO ×2 (13:05→18:58)
--- NOTE | 2020-07-01 13:31 | PC.NURSE ---
PT INTERMITTENTLY TEARFUL OVER COURSE OF EVENTS- RETURNING TO HOSPITAL SO SOON POST DISCHARGE - LUNGS DIM AND OCCASIONALLY COARSE AND MAINTAINING ADEQUATE SPO2 ON ROOM AIR 93-96% - LABS ARE NOT REMARKABLE - PT CONTINUES TO BE VERY WEAK AND DECONDITIONED - UP TO CHAIR FOR MEALS - ASSESSED BY PT/OT, TELE SHOWS AFIB PRIOR TO REMOVAL AND PT USING URINAL
--- NOTE | 2020-07-01 13:58 | CM.DPNOTE ---
Faxed referral packet to [facility] Attn: Roddy, F [phone]. Roddy said they do accept Covid positive patients. I did mention that [facility] is being reviewed by Isabel Cameron. Roddy said she will review information and get back to me. Mary Bentley CM Asst.
--- NOTE | 2020-07-01 15:47 | CM.DPC ---
DCP Cont: [facility] is reviewing patient, stated that they do accept positive COVID patients. They are located in [place]. Mary, nursing home assistant administrator, faxed over information on patient. Will follow up in the am, and will update Isabel Cameron, for a new authorization will need to be obtained. P: DCP to continue to follow. Will follow up with [facility], to see if they will accept. SILVERIO Muñoz, also assisting in locating facility, and have left a message with Chucky. Marya Sol RN/Combined Rail Operator
[2020-07-01] MEDS: WARFARIN 5 MG TABLET PO (16:48)
--- NOTE | 2020-07-01 17:22 | PC.NURSE ---
Report received, care assumed 1530. Pt. up in chair. VSS. Denies pain. Has some anxiety, which she is able to verbalize. Ambulated to bathroom with standby assist. Still experiencing some rectal output, as well as ostomy output. Positive bowel sounds throughout.
--- NOTE | 2020-07-01 18:23 | PC.NURSE ---
Addendum entered by Hannah Coates R.N. 07/01/20 22:42: Pt. experiences some urinary incontinence and wears a brief. Noted slightly reddened inguinal creases. Barrier ointment applied. Addendum entered by Hannah Coates R.N. 07/01/20 22:09: Pt notably drowsy [id number], drifting off and mumbling. However, he does rouse and is oriented. Also noted that pt has apneic pauses in breathing for a couple of seconds with desat to 80's, with spontaneous and quick recovery. Original Note: Report received, care assumed 1530. Precautions observed for Covid +. Pt. is A&O x4, up in chair, denies pain. VSS on RA. Lungs clear. Only reported symptom is generalized weakness. 1-person assist with gait belt and FWW to transfer to bed. Pt. talkative, occasionally tearful.
[2020-07-02 04:00] VITALS: BP 132/70; PULSE 95; RESP 16; TEMP 36.6; O2SAT 92
[2020-07-02 05:04] LABS: Add Manual Diff / Slide Review NO; Basophils Absolute Auto 100 /uL (0-100); Basophils Percent Auto 1.1 % (0-2); Eosinophils Absolute Auto 100 /uL (0-450); Eosinophils Percent Auto 1.6 % (2-4); Hematocrit 31.7 % (41-53); Hemoglobin 10.5 g/dL (13.5-17.5); Lymphocytes Absolute Auto 800 /uL (1100-4500); Mean Corpuscular HGB Conc 33.1 % (30-36); Mean Corpuscular Hemoglobin 29.1 PG (26-34); Mean Corpuscular Volume 87.9 fL (80-100); Monocytes Absolute Auto 400 /uL (0-900); Monocytes Percent Auto 5.7 % (3-14); Neutrophils Absolute Auto 5100 /uL (1500-7000); Neutrophils Percent Auto 78.6 % (50-75); Platelet Count 241 X10^3/uL (150-400); Red Blood Cell Count 3.61 X10^6/uL (4.5-5.9); Red Cell Distribution Width 15.3 % (11.6-14.8); White Blood Cell Count 6.4 X10^3/uL (4.5-11.0)
[2020-07-02 05:10] LABS: INR 1.7 (0.9-1.3); Prothrombin Time 19.4 SECONDS (10.1-12.7)
[2020-07-02 05:15] LABS: Alanine Aminotransferase 34 IU/L (<50); Albumin 2.5 g/dL (3.5-5.0); Albumin Globulin Ratio 0.9 (1.0-2.8); Alkaline Phosphatase 73 U/L (38-126); Aspartate Aminotransferase 36 IU/L (17-59); Bilirubin Total 0.4 mg/dL (0.2-1.3); Blood Urea Nitrogen 29 mg/dL (9-20); Calcium 8.3 mg/dL (8.4-10.2); Carbon Dioxide 24 mmol/L (22-32); Chloride 111 mmol/L (98-107); Estimated Glomerular Filt Rate 57.1 mL/min (>60); Globulin 2.9 g/dL (1.7-4.1); Glucose 236 mg/dL (80-110); HEMOLYSIS < 15 (0-50); Lactate (Lactic Acid) 1.6 mmol/L (0.7-2.1); Potassium 4.5 mmol/L (3.4-5.1); Sodium 139 mmol/L (137-145); Total Protein 5.4 g/dL (6.3-8.2)
[2020-07-02 05:23] LABS: NT-proBNP (BNP-Adult 18+) 2080 pg/mL (<450)
[2020-07-02] MEDS: LEVOTHYROXINE 50 MCG TABLET PO (06:53)
[2020-07-02] MEDS: MIDODRINE HCL 5 MG TABLET PO (06:53)
[2020-07-02 07:20] VITALS: O2SAT 95
[2020-07-02 07:51] VITALS: BP 129/72; PULSE 98; RESP 18; TEMP 36.7; O2SAT 95
--- NOTE | 2020-07-02 07:54 | CM.DPC ---
DCP Cont: Was notified by Mary, special needs child caregiver, that Rdody from [facility] left a message regarding accepting patient. Message was left last pm. Left a message with Isabel Cameron at [facility], to call back and get an authorization. Left a message with Colbyarminda, in admissions, at [facility] as well to confirm acceptance. Roddy's phone number is: [phone]. P: DCP to work on discharge for patient to go to [facility], pending confirmation and authorization. Patient will need to go via ambulance. Marya Sol RN/Slasher Tender Helper
[2020-07-02] MEDS: INSULIN GLARGINE 100 UNIT/ML 3ML PEN 35 UNIT SUBCUT (09:00)
[2020-07-02] MEDS: POLYVINYL ALCOHOL DROPS 1 DROPS EYE-BOTH (09:00)
[2020-07-02] MEDS: DOCUSATE 100 MG CAPSULE PO (09:00)
[2020-07-02] MEDS: SODIUM CHLORIDE 0.9% FLUSH 10 ML IV (09:00)
[2020-07-02] MEDS: DIGOXIN 0.125 MG TABLET PO (09:01)
[2020-07-02] MEDS: METOPROLOL IR 25 MG TABLET 12.5 MG PO (09:01)
[2020-07-02] MEDS: DEXAMETHASONE 10 MG/ML VIAL 6 MG IV (09:01)
[2020-07-02] MEDS: INSULIN ASPART 100 UNIT/ML INSULN PEN SUBCUT (09:03)
--- NOTE | 2020-07-02 10:44 | P.DS_ITS ---
History of Present Illness History of Present Illness Chief complaint: weakness Narrative: Mr. Heard is an 84-year-old male with a past medical history of atrial fibrillation, diabetes type 2, hypothyroidism, CKD stage 3, orthostatic hypotension who comes in with weakness. Patient was actually just in the [facility] and discharged two days ago after being admitted on 06/22/2020 for acute respiratory failure COVID pneumonia. He was discharge on 06/29/20. During his hospitalization he eventually escalated to briefly need high-flow nasal cannula but never BiPAP or intubation. He did get dexamethasone throughout his stay, and remdesivir as well. During his discharge he declined to be discharged to a SNF or rehabilitation unit despite recommendation to do so due to significant deconditioning. He was discharged off of oxygen. Once home he noted significant fatigue and weakness. He did not notice shortness of breath, coughing, fevers/chills. He primarily couldn't get out of bed and because of this called EMS. He had an pulse ox at home and noted one brief desaturation to 89% otherwise was in the mid 90s. Upon returning to the ED the patient reports having very little access to any meaningful help at home as his also has COVID pneumonia. He has no home nursing assistance. He has been unable to get out of bed due to profound weakness. He admits to being resistant to any discharge to SNF during prior hospitalization but states he may have changed his mind this time around. In the ER he was noted to have normal temperature and blood pressure. Heart rate in the 90s. He was initially placed on 4L NC but satting 99%. Upon arrival to the floor oxygen was discontinued and he was satting 93-94% in bed on room air. His ABG in ER did noted a PaO2 of 53 on room air. Otherwise labs are notable for creatinine 1.36, ferritin 577, lactate 2.4, proBNP 1880,CRP 11.5, lactate Dehy 628, total creatinine kinase 33, procalcitonin within normal limits. Chest CTA was negative for PE. COVID positive. He was admitted for further treatment. Discharge Providers Provider Date of admission: 07/01/20 05:35 Discharge Date: 07/02/20 Primary care physician: Laksiha Dangelo MD Consults: 07/01/20 09:00 Consult to Occupational Therapy Evaluate & Treat Comment: Physician Instructions: Evaluate and treat Consult to Physical Therapy Evaluate & Treat Comment: Physician Instructions: Evaluate and Treat Discharge provider: Adonay Vaca MD Summary Hospital Course Discharge Diagnosis: 1. Acute deconditioning 2. Recent admission for respiratory failure from COVID pneumonia, respiratory failure resolved. 3. Chronic AFib with RVR, RVR resolved 4. Type 2 diabetes 5. CKD stage 3 6. Orthostatic hypertension 7. Hypothyroidism 8. Anemia 9. probable ALEJANDRINA Hospital Course: Mr. Heard was admitted for deconditioning. He had recent admission for respiratory failure from COVID pneumonia which was treated with remdesivir and dexamethasone. He also had afib with RVR during that admission. He was able to be weaned off oxygen, and worked with PT who noted he was profoundly weak from his illness. SNF was recommended to him, but he decided to go home. However at home he was unable to get out of bed, was very weak and short of breath with any activity. Because of this EMS was called and he returned to the hospital. Here he was noted to have continued improving respiratory function. He did not need oxygen. He did not have worsening labs, respiratory symptoms, or chest imaging. He was continued on dexamethasone as he had previously not received 10 day course, and this was discontinued on discharge. He is discharged to SNF for PT/OT. His other medical issues were well controlled in the hospital. Code status: Full Discharge time: 35 minutes Status at Discharge Cognitive/behavioral status at discharge: oriented Functional status at discharge: uses cane/walker Overall status at discharge: patient is progressing back to baseline Time Spent with Patient Time spent: Less than 30 minutes Exam Vital Signs (past 8 hours): - 07/02/20 04:00 07/02/20 07:20 07/02/20 07:51 Temperature 97.9 F 98.0 F Pulse Rate 95 H 98 H Respiratory Rate 16 18 Blood Pressure 132/70 129/72 Pulse Oximetry 92 95 95 Oxygen Delivery Method Room Air Oxygen Flow Rate 0 Narrative Exam Narrative: General: no acute distress HEENT: Has moist mucous membranes, trachea midline, no JVD Cardiovascular: irregularly irregular, no murmurs Pulmonary: clear bilaterally Abdomen: soft nontender nondistended, no organomegaly, normal bowel sounds Skin: Has scattered ecchymoses on his extremities Neuro: he is awake alert and oriented, moving all extremities Extremities: traced pitting edema bilateral feet Psych: he is cooperative, pleasant Objective Labs Result Diagrams: 07/02/20 04:44 07/02/20 04:44 Labs: Laboratory Results - last 24 hr 07/02/20 07/02/20 07/02/20 04:44 04:44 04:44 WBC 6.4 RBC 3.61 L Hgb 10.5 L Hct 31.7 L MCV 87.9 MCH 29.1 MCHC 33.1 RDW 15.3 H Plt Count 241 Neut % (Auto) 78.6 H Lymph % (Auto) 13.0 L [place] % (Auto) 5.7 Eos % (Auto) 1.6 L Baso % (Auto) 1.1 Neut # (Auto) 5100 Lymph # (Auto) 800 L [place] # (Auto) 400 Eos # (Auto) 100 Baso # (Auto) 100 PT 19.4 H INR 1.7 H Sodium 139 Potassium 4.5 Chloride 111 H Carbon Dioxide 24 BUN 29 H Creatinine 1.21 Estimated GFR 57.1 L BUN/Creatinine Ratio 24.0 H Glucose 236 H D Lactate Calcium 8.3 L Total Bilirubin 0.4 AST 36 ALT 34 Alkaline Phosphatase 73 NT-Pro-B Natriuret Pep 2080 H Total Protein 5.4 L Albumin 2.5 L Globulin 2.9 Albumin/Globulin Ratio 0.9 L 07/02/20 04:44 WBC RBC Hgb Hct MCV MCH MCHC RDW Plt Count Neut % (Auto) Lymph % (Auto) [place] % (Auto) Eos % (Auto) Baso % (Auto) Neut # (Auto) Lymph # (Auto) [place] # (Auto) Eos # (Auto) Baso # (Auto) PT INR Sodium Potassium Chloride Carbon Dioxide BUN Creatinine Estimated GFR BUN/Creatinine Ratio Glucose Lactate 1.6 Calcium Total Bilirubin AST ALT Alkaline Phosphatase NT-Pro-B Natriuret Pep Total Protein Albumin Globulin Albumin/Globulin Ratio PFS Medical History Cancer of left ear Chronic atrial fibrillation with RVR Community acquired pneumonia COVID-19 Diabetes E coli infection Hernia of abdominal cavity Hypothyroidism Inguinal hernia bilateral, non-recurrent Melanoma Prostate cancer Right eye injury Surgical History History of throat surgery History of transurethral resection of prostate Status post bilateral hernia repair Family History Mother Coronary artery disease Social History household members: spouse Smoking Status: Never smoker alcohol intake: never Discharge Plan Discharge Plan Patient Disposition: SNF Provider Discharge Comment: Mr. Heard was admitted for significant deconditioning. He had recently been admitted to the hospital for COVID pneumonia. He was briefly on high flow, and during that admission treated with remdesivir and dexamethasone. He was able to get off oxygen, and was recommended to be discharged to SNF due to significant deconditioning. He decided to go home, and was readmitted after being unable to manage care at home. He had no evidence of worsening of his symptoms. He was off oxygen in the hospital. He is discharged to SNF for PT/OT. Discharge orders & Medications Prescriptions: Continued tramadol 50 MG tablet 100 mg PO QID PRN (Reason: Pain (Scale Score 1-3)) Qty: 0 RF: 0 ferrous sulfate [Iron (ferrous sulfate)] 325 mg (65 mg iron) Tablet 325 mg PO DAILY RF: 0 midodrine 5 mg Tablet 5 mg PO 0600,1200,1800 Qty: 15 RF: 0 digoxin 125 mcg (0.125 mg) Tablet 0.125 mg PO DAILY Qty: 30 RF: 0 metoprolol tartrate 25 mg Tablet 12.5 mg PO BID Qty: 30 RF: 0 levothyroxine 50 mcg Tablet 50 mcg PO MOTUWETHFRSA RF: 0 warfarin [Coumadin] 5 mg Tablet 5 mg PO QACDINNER RF: 0 warfarin 5 mg tablet 5 mg PO QPM RF: 0 docusate sodium 100 mg 100 mg PO DAILY RF: 0 furosemide 80 mg Tablet 80 mg PO DAILY RF: 0 Lantus Solostar U-100 Insulin 100 unit/mL (3 mL) Insulin Pen 35 unit SUBCUT BID Qty: 15 RF: 0 Follow up/Referrals: Lakisha Dangelo MD [Primary Care Provider] - Discharge Data Primary Care Provider: Lakisha Dangelo Quality [facility] The patient has current or prior documentation of left ventricular ejection fraction (LVEF) less than 40%, or moderate or severely depressed left ventricular systolic function.: No
--- NOTE | 2020-07-02 10:45 | CM.DPNOTE ---
Per Wanda's request. Called [facility] and spoke to Henok at 1040 on 07/02/20 for patient transport [place] [facility] [address] [place] Requested soonest available S transport which he said would be 1115. Gave Henok the information he requested (wt, diagnosis, etc.) and said he was Covid positive. Mary Bentley CM Asst.
--- NOTE | 2020-07-02 10:57 | CM.DANOTE ---
DCP/continued: Reviewed chart. LABORER/KEY MAN took over caseload due to UR//training. Received call from Merari at [facility] in [place]. She reports that they can accept this patient once [facility] authorization received. Placed call to [facility] DALIA/Isabel # [phone]. She reviewed notes and authorization for SNF is [id number]. Notified provider of acceptance, orders obtained, PASRR completed, and medical necessity form signed by both provider and DCP. Kentrell faxed above completed information to accepting facility. Transport to be arranged by MY/Mary. Patient COVID positive and requiring non-urgent BLS transport due to precautions. Patient provided name/address of accepting facility and copy of Important Message from Medicare. RN reports that patient alert and oriented and that he will notify family. RN reports that she will update son/Don. P: [facility] today via non-urgent BLS. SILVERIO Sandy
--- NOTE | 2020-07-02 12:20 | PC.NURSE ---
pt transferred to [facility] in [place]- REPORT CALLED TO HUBERT AND ASSISTED TO GET TO TRANSPORTATION STRETCHER- UPDATE CALLED TO SON/BRIDGER- DON ALL QUESTIONS ANSWERED TO HIS SATISFACTION
--- NOTE | 2020-07-03 15:33 | CM.DPNOTE ---
Call received from José Luis asking where patient had discharged? Reviewed notes and updated patient discharged to [facility] in [place] yesterday, via BLS. LISSET
== END 2020-07-02 12:05 ==
LOC: ED 03:52 → AC 05:47 → ICU 06:54 → AC 07-04 09:01 → ICU 07-04 09:01
PROVIDERS: Admitting Provider Nurse Practitioner Family; Emergency Provider Emergency Medicine; PCP Internal Medicine; Referring Provider Emergency Medicine; Visit Provider Nurse Practitioner Family
DX: U07.1 COVID-19 (principal); J12.82 Pneumonia due to coronavirus disease 2019; I48.20 Chronic atrial fibrillation, unspecified; I95.1 Orthostatic hypotension; E03.9 Hypothyroidism, unspecified; E11.22 Type 2 diabetes mellitus with diabetic chronic kidney disease; N18.30 Chronic kidney disease, stage 3 unspecified; D64.9 Anemia, unspecified; Z79.4 Long term (current) use of insulin; Z79.01 Long term (current) use of anticoagulants
CPT/HCPCS: 36415; 36600; 71275; 80053; 82550; 82728; 82805; 82962; 83605; 83615; 83735; 83880; 84145; 84484; 85025; 85379; 85610; 86140; 87040; 87633; 87635; 87797; 93005; 93010; 94762; 96372; 96374; 96376; 97162; 97166; 97530; 99285; C9803; G0378; J1100; Q9967

== ENCOUNTER → 2020-08-02 10:57 | Outpatient (CLI) | payer OTHER, SELFPAY ==
[2020-07-01 06:30] VITALS: BMI 33.9
[2020-08-02 13:10] LABS: Clostridium Difficile Tox PCR Negative for C. diff
== END ==
PROVIDERS: PCP Internal Medicine; Referring Provider Internal Medicine; Visit Provider Internal Medicine
DX: R19.7 Diarrhea, unspecified (principal)
CPT/HCPCS: 87493

== ENCOUNTER → 2020-09-24 12:59 | Outpatient (CLI) | payer OTHER, SELFPAY ==
[2020-07-01 06:30] VITALS: BMI 33.9
--- NOTE | 2020-09-24 | DI.US.S_ITS ---
PROCEDURE: US RENAL COMPLETE INDICATIONS: KIDNEY CALCULUS TECHNIQUE: Real-time scanning was performed of the kidneys and bladder, with image documentation. COMPARISON: None. FINDINGS: Kidneys: Kidneys are normal in size. Right kidney measures 9.9 cm long; left kidney measures 9.4 cm long. Right renal cortical thickness is 1.4 cm; left renal cortical thickness is 1.3 cm. Renal cortical echotexture is normal. No hydronephrosis or nephrolithiasis. No suspicious solid mass lesions. 11 mm cyst within the superior pole right kidney. Left interpolar renal cyst measuring 23 mm. Bladder: Pre-void bladder volume is 104 mL. Post-void residual is 20 mL. Pre-void images demonstrate no intraluminal masses or stones. On pre-void images, bilateral ureteral jets are noted with color Doppler interrogation. (Of note, ureteral jets may not be detectable in up to 25% of cases due to insufficient differences in specific gravity between ureteral and bladder urine). Urinary bladder is thickened 10 9 mm pre void. Miscellaneous: No free pelvic fluid. IMPRESSION: 1. No hydronephrosis. 2. Bilateral renal cysts. 3. Thickened urinary bladder. Recommend correlation with urinalysis results. Dictated by: Ritika Conn M.D. on 09/24/2020 at 16:49 Approved by: Ritika Conn M.D. on 09/24/2020 at 16:50
== END ==
PROVIDERS: PCP Internal Medicine; Referring Provider Urology; Visit Provider Urology
DX: N20.0 Calculus of kidney (principal); N28.1 Cyst of kidney, acquired
CPT/HCPCS: 76770

== ENCOUNTER → 2021-01-22 12:46 | Outpatient (CLI) | payer OTHER, SELFPAY ==
[2020-07-01 06:30] VITALS: BMI 33.9
--- NOTE | 2021-01-23 17:19 | DIAB.INIT ---
Initial Diabetes Education Assessment Name: Marty Heard Date: 01/22/21 Time: 1p Dx: Type II Diabetes Provider: Young Marty presents today for initial diabetes visit. States he has had Dm for years, but unclear how long. Reports a number of social barriers today. States his has undiagnosed dementia. As a result, she often leaves kitchen burners on, has blown up the microwave, and she is the main cook. States they have received homehelath help before, and she was not very accepting or cooperative. States he has three children. Two are not in touch with him, as one has been accused of elder abuse (in relation to he and his ). Legal dispute involved potentially. Other son helps, but he lives in [place]. He is quite tearful today discussing these barriers. States his other son is about to retire in March and may be helpful, but has his own family concerns. Endorse good support from neighbors. State he has been on a number of insulins and is working on keeping BG <300 but above 60. He adjusts insulin based on BG and food, but no clear plan for insulin to carb ratio or correction. Potentially high carb intake at breakfast. Dinner seems fairly balanced. Likely needs some insulin education and adjustments, which BG would be needed for more insight. Endorses recently hospitalization for covid, which he attributes some cognitive and vision deficiencies to. Diet Recall: 9-10a: cereal with fruit 2p: nothing or PBJ sandwich with 16oz milk OR soup with crackers 5-7p: meat or fish with 1.5c potatoes, vegetables and salad HS snack: nothing or 1/2c ice cream with raspberries Beverages: 1-2c tea with cream and sugar substitute, crystal light 20-40oz, diet pepsi sometimes Anthropometrics: Ht: 6' Wt: 250# reported Weight history: Denies any weight changes Physical Activity: None. Barrier is mobility. Uses wheelchairs and walkers. Self-Monitoring Blood Glucose: Uses [employer] giulia, but he did not bring the scanner today. States he normally checks BG prior to meals. States readings range from 60-300 mg/dL. Endorses low blood sugar a couple times per month. Treats BG <70 with pudding. Reports taking last dose of Novolog after meal and before bed, which is likely contributing to lows. States when BG are around 100 mg/dL he feels thirst and will drink crystal light. Checks BG throughout the night due to fear of lows. Unaware of Rule of 15 for tx hypoglycemia. Diabetes Medications: Lantus 32u in the morning Novolog TID (12, 9, 15) Pertinent Labs: No recent labs available. Last lab in EMR: HgA1c 10.7 (12/2019), glucose: 236 (06/2020) Past Medical History: (Last Reviewed 07/01/20 @ 11:56 by Adonay Vaca MD) Cancer of left ear Chronic atrial fibrillation with RVR Community acquired pneumonia COVID-19 Diabetes E coli infection Hernia of abdominal cavity History of throat surgery Excision benign lesion 2010 History of transurethral resection of prostate 2010 Hypothyroidism Inguinal hernia bilateral, non-recurrent Melanoma Prostate cancer Right eye injury and blind Status post bilateral hernia repair 1989 Intervention: This participant was very receptive. Provided appropriate educational handouts. Discussed the following topics: Completed intake assessment. Discussed barriers to care. Rule of 15 to treat low blood sugars quickly and safely Insulin education: when to take (prior to meals) Plate Method Social barriers and potential resources and safety precautions Created SMART goals for patient self-care and success. Goals: Purchase cans of juice for treating lows (instead of pudding) Place 4 juice cans by bedside Take novolog ac, especially at night Bring BG next visit Follow-up: HUSAM HERNANDEZ follow-up in 2-3 weeks Agueda Pineda RDN, MARY Certified Diabetes Care and Scrap Hoist Operator P: [phone] Thank you for this referral
== END ==
PROVIDERS: PCP Internal Medicine; Referring Provider Internal Medicine; Visit Provider Internal Medicine
DX: E11.9 Type 2 diabetes mellitus without complications (principal); Z71.3 Dietary counseling and surveillance; Z79.4 Long term (current) use of insulin
CPT/HCPCS: 97802; G0108

== ENCOUNTER → 2021-02-12 12:46 | Outpatient (CLI) | payer OTHER, SELFPAY ==
[2020-07-01 06:30] VITALS: BMI 33.9
--- NOTE | 2021-02-12 16:35 | DIAB.MNT ---
Initial Diabetes Medical Nutrition Therapy Assessment Name: Marty Heard Date: 02/12/21 Time: 1-2p Dx: Type II Diabetes Marty is here for initial MNT visit, completed diabetes intake education last visit. States he has brought a food log of typical food choices. He did not bring his scanner for his freestyle giulia. So no BG are available to assess. Reports he has no teeth, which impacts food choices. Also has hearing deficits, but states he cannot afford hearing aids. Food log indicates most breakfasts are 60g CHO without protein. Lunch is often 45-60g CHO with protein, limited vegetables. Dinner is often protein and vegetables, sometimes with potatoes and +/- dessert. CHO for dinner vary vastly. C/o recent eye discomfort. Saw master lay out specialist and completed a dilated eye exam, which was reportedly unremarkable. Marty tells me he usually takes his novolog as soon as he wakes. He then waits for his to wake and make breakfast. This is often >15 minutes. Has experienced lows in the morning per his report. No recent readings <70 reported, but no readings to determine BG trends. Marty would like to move to a assisted living facility, but he is tearful again today about the state of things with his . Reports she is not open to homehealth or assisted living, but she has dementia and seems dangerous in the kitchen. Anthropometrics: Ht: 6' Wt: 250# reported Physical Activity: None. Barrier is mobility. Uses wheelchairs and walkers. Self-Monitoring Blood Glucose: Uses freestyle giulia, but he did not bring the scanner today. States he normally checks BG prior to meals. States readings range from 60-300 mg/dL. This morning BG was 126 mg/dL within goal. Last night he reports a reading of 299 mg/dL after eating out and over doing it. Denies any lows since last visit. Bought juice to treat lows, instead of treating with pudding. Continues to take Novolog inappropriately, not prior to meal 10-15min. Not keeping juice by his bed since he could not find the cans of juice. Reports a time when his BG was so low he could not wake. EMS was called and he was treated for hypo. He is tearful in discussing. Marty is taking Novolog after meals at times, and seems likely he needs to adjust dosage but he has not brought BG in for review. This RD/MARY will call him tomorrow to retrieve numbers. Diabetes Medications: Lantus 32u in the morning Novolog TID (12, 9, 15) Pertinent Labs: No recent labs available. Last lab in EMR: HgA1c 10.7 (12/2019), glucose: 236 (06/2020) Past Medical History: (Last Reviewed 07/01/20 @ 11:56 by Adonay Vaca MD) Cancer of left ear Chronic atrial fibrillation with RVR Community acquired pneumonia COVID-19 Diabetes E coli infection Hernia of abdominal cavity History of throat surgery Excision benign lesion 2010 History of transurethral resection of prostate 2010 Hypothyroidism Inguinal hernia bilateral, non-recurrent Melanoma Prostate cancer Right eye injury and blind Status post bilateral hernia repair 1989 Nutrition Rx: Plate Method Nutrition Diagnosis: - Inconsistent protein intake r/t nutrition knowledge deficit aeb diet recall - Physical inactivity r/t limited mobility aeb pt report and wheelchair/walker use - Inconsistent CHO intake r/t nutrition knowledge deficit aeb diet recall and swings in BG Intervention: This participant was very receptive. Provided appropriate educational handouts. Discussed the following topics: Importance of changing insulin based on BG Potential for CGM that may wake him if BG start to fall quickly Plate Method, impact of macronutrients on blood sugar, pairing macronutrients Recommended servings for carbohydrates at meals and snacks Brainstormed ways to balance meals he is currently eating Created SMART goals for patient self-care and success. Goals: Purchase cans of juice for treating lows (instead of pudding)- met Place 4 juice cans by bedside- not met Take novolog ac, especially at night- in progress Bring BG next visit - in progress Add protein to breakfast- new Take novolog 10-15 min BEFORE meal- new Place insulin on table in a container as a reminder- new Follow-up: HUASM HERNANDEZ follow-up in 2-3 weeks. Will also call him tomorrow for BG readings. Agueda Pineda RDN, MARY Certified Diabetes Care and Boating Safety Officer P: [phone] Thank you for this referral
--- NOTE | 2021-02-13 14:40 | DIAB.FU ---
Telephone: Follow-up Diabetes Education Assessment Name: Marty Heard Date: 02/13/21 Time: 230p Dx: Type II Diabetes Called to evaluate BG since he has not brought readings in during session. am to pm 02/13: 121, 185, 136, 152 02/12: 184, 118, 138, 174, 197, 85 and trending down after no carb at dinner + 15u novolog 02/11: 301, 288, 158, 134, 188, 299, 226 02/10: 196, 170, 125, 165, 153 Marty checks BG through the night with readings from 12am to 1130pm d/t fear of lows. He is very worried about low BG given his experience with lows. Last night his reading was trending down due to taking full novolog dose without any carb (dinner: span and eggs with tomato salad). Tx with pudding and brought BG up to 121. Has questions about food and Warfarin. Currently avoiding greens. Discussed eating them consistently if he wants to enjoy them. Interventions: 1. Do not take full novolog before bed if not eating any carbs. Try cutting in half. Can re-evaluate dosage pending BG. 2. Warfarin MNT education Follow-up: HUSAM HERNANDEZ follow-up as scheduled. Agueda Pineda, HUSAM, MARY Certified Diabetes Care and Pricing Actuary P: [phone] Thank you for this referral
== END ==
PROVIDERS: PCP Internal Medicine; Referring Provider Internal Medicine; Visit Provider Internal Medicine
DX: E11.9 Type 2 diabetes mellitus without complications (principal); Z71.3 Dietary counseling and surveillance; Z79.4 Long term (current) use of insulin
CPT/HCPCS: 97802

== ENCOUNTER → 2021-02-25 12:57 | Outpatient (CLI) | payer OTHER, SELFPAY ==
[2020-07-01 06:30] VITALS: BMI 33.9
--- NOTE | 2021-02-27 09:44 | DIAB.FU ---
Follow-up Diabetes Education Assessment Name: Marty Heard Date: 02/25/21 Time: 110-220p Dx: Type II Diabetes Marty presents for follow-up DM ed. He brought his freestyle core fitter today. See SMBG review below. States he continues to have social barriers and stress with (and her potential dementia). She prepares meals, and he feels he cannot make any suggestions for changes to meals without creating an argument. States she did not want to attend visit today. Brought in his cereal bowl and instant potatoes used at home. Both are moderate in size for CHO. Has questions about warfarin and diet changes. States when BG are in the 200s he will take 5u of Novolog at night without eating to correct. Reports h/o lows at night, which is why he checks BG very frequently through the night. Marty has historically reported taking meal time insulin with meals even when no CHO is eaten. Has had to tx a low after this. Plans to see PCP 04/29/20 and plate filler with lab work next week. Physical Activity: None. Barrier is mobility. Uses wheelchairs and walkers. Self-Monitoring Blood Glucose: Hyperglycemia seems related to needing further adjustments to insulin and inconsistent carb intake at meals. some meals are very high in carbs (ie spaghetti with sauce, pears, ground beef and salad), while other are low in carbs (spam and eggs). Freestyle giulia core fitter indicates: 7d av 14d av 30d av TIR: 51% above: 81% target: 90-180 Recent readings difficult to determine what is fasting, ac or pc readings. Checks randomly through the day and night. Also, takes lantus in the morning. 02/25: 170, 183 02/24: 195, 169, 166, 238, 227, 220 02/23: 206, 130, 109, 97, 173, 173, 170, 190 02/22: 219, 182, 143, 181, 239, 170, 162, 209, 214 02/21: 201, 179, 247, 117, 242 02/20: 169, 147, 132, 152, 191, 141, 133 12: 200, 201, 183, 244, 180, 151, 251, 191 Diabetes Medications: Lantus 32u in the morning Novolog TID (12, 9, 15) Pertinent Labs: No recent labs available. Last lab in EMR: HgA1c 10.7 (12/2019), glucose: 236 (06/2020) Past Medical History: (Last Reviewed 07/01/20 @ 11:56 by Adonay Vaca MD) Cancer of left ear Chronic atrial fibrillation with RVR Community acquired pneumonia COVID-19 Diabetes E coli infection Hernia of abdominal cavity History of throat surgery Excision benign lesion 2009 History of transurethral resection of prostate 2009 Hypothyroidism Inguinal hernia bilateral, non-recurrent Melanoma Prostate cancer Right eye injury and blind Status post bilateral hernia repair 1989 Intervention: This participant was very receptive. Provided appropriate educational handouts. Discussed the following topics: Recent blood sugar results and trends Impact of macronutrients on BG Plate method review Medication management. Avoiding insulin injections at night without eating. Review of general nutrition recommendations and current intake. Consistency of CHO intake. Created SMART goals for patient self-care and success. Provided warfarin and nutrition handout. Goals: Do not take full novolog before bed if not eating any carbs. Try cutting in half. Can re-evaluate dosage pending BG- in progress Add protein to breakfast- not met Take novolog 10-15 min BEFORE meal- met Place insulin on table in a container as a reminder- d/c ( did not support this per his report) Write down what time you wake and eat - new Seems a big impact on his diabetes management is his ability to implement changes (he may confirm understanding a concept in visit, but he then has a difficult time with that concept next visit) and his social situation at home with his . Follow-up: HUSAM HERNANDEZ follow-up in 2-3 weeks Agueda Pineda RDN, MARY Certified Diabetes Care and Crop Nutrition Scientist P: [phone] Thank you for this referral
== END ==
PROVIDERS: PCP Internal Medicine; Referring Provider Internal Medicine; Visit Provider Internal Medicine
DX: E11.9 Type 2 diabetes mellitus without complications (principal)
CPT/HCPCS: G0108

== ENCOUNTER → 2021-03-06 12:11 | Outpatient (CLI) | payer OTHER, SELFPAY ==
[2020-07-01 06:30] VITALS: BMI 33.9
--- NOTE | 2021-03-06 12:13 | DI.ECHO.S_ITS ---
[facility] +---------+ : : [address] : : : : [id number] : : : : Phone: [phone]---------+ Echocardiogram Report + + :Name: MADDISON ANTONIO Study Date: 03/06/2021 Height: 72 in : :[facility] ReadingLocation: Weight: 243 lb : : Gender: Male BSA: 2.3 m2 : :: 1935 Age: 85 yrs BP: 120/74 mmHg: :Reason For Study: Atrial fibrillation : :Ordering Physician: Debbie, : :Raul Performed By: Alexandr Hernandez : :Referring: RAUL RADER : + + Interpretation Summary The patient was in atrial fibrillation with heart rates between 71 - 100 bpm during the exam. Chronic A. fib. The left ventricle is normal in size and wall thickness. The ejection fraction is estimated to be 55-60%. Previous LVEF about 60 to 65%. The right ventricle is at the upper limits of normal in size. Right ventricular systolic function is mildly reduced. There is mild tricuspid regurgitation. Compared to the prior echo exam, there has been a decrease in TR severity. Right ventricular systolic pressure is estimated to be 24 mmHg plus the clinically estimated CVP which cannot be estimated on this exam. Procedure: A two-dimensional transthoracic echocardiogram with color flow and Doppler was performed. The study quality was technically difficult. The subcostal views were difficult to obtain and are suboptimal in quality. Comparison is made with the echocardiogram of 03/06/2020. Patient unable to be completely turned on left side. The patient was in atrial fibrillation with heart rates between 71 - 100 bpm during the exam. Left Ventricle: The left ventricle is normal in size and wall thickness. There is no thrombus. The ejection fraction is estimated to be 55-60%. There are no focal wall motion abnormalities. Diastolic function could not be accurately assessed due to atrial fibrillation. Right Ventricle: The right ventricle is at the upper limits of normal in size. Right ventricular systolic function is mildly reduced. Atria: The left atrium is moderately dilated. There has been no significant change since the previous study. The right atrium is mild to moderately dilated. There is no Doppler evidence for an interatrial shunt. The thickening of interatrial septum suggests lipomatous hypertrophy. Mitral Valve: The mitral valve leaflets appear mildly thickened, but open well. There is trace mitral regurgitation. Compared to the prior echo study, there has been a decrease in the severity of mitral regurgitation. Aortic Valve: The aortic valve is trileaflet. The aortic valve opens well. There is no hemodynamically significant valvular aortic stenosis. There is trace aortic regurgitation. Tricuspid Valve: The tricuspid valve is normal. There is mild tricuspid regurgitation. Right ventricular systolic pressure is estimated to be 24 mmHg plus the clinically estimated CVP which cannot be estimated on this exam. Compared to the prior echo exam, there has been a decrease in TR severity. Pulmonic Valve: The pulmonic valve is not well seen, but is grossly normal. Great Vessels: The aortic root is normal size. The ascending aorta is normal in size. The aortic arch is normal in size. The inferior vena cava was not visualized. Pericardium/ Pleura There is no pericardial effusion. There is an anterior echo-free space consistent with a fat pad. There is no pleural effusion. MMode/2D Measurements & Calculations LVIDd: 5.0 cm LVOT diam: 2.3 cm LVIDs: 3.8 cm Ao root diam: 3.6 cm FS: 24.0 % asc Aorta Diam: 3.5 cm IVSd: 1.0 cm Ao Arch Diam (Prox Trans): 2.4 cm LVPWd: 1.0 cm LV sainz. diameter/BSA (cm/m^2): 2.2 LV sys. diameter/BSA (cm/m^2): 1.6 LA A2 area: 24.8 cm2 RA long axis: 6.6 cm LA A4 area: 19.3 cm2 LA length (vol): 7.2 cm LA vol: 56.0 ml LA vol index: 24.2 ml/m2 TAPSE_phl: 1.6 cm Doppler Measurements & Calculations Ao V2 max: 129.3 cm/sec LVOT Max Walter: 70.3 cm/sec Ao V2 mean: 100.6 cm/sec LV V1 max P.0 mmHg Ao max P.0 mmHg LV V1 VTI: 14.2 cm Ao mean P.3 mmHg KM(I,D): 2.3 cm2 Ao V2 VTI: 25.6 cm KM(V,D): 2.3 cm2 sev ratio: 0.56 KM indexed to BSA (cm^2/m^2): 1.00 MV E max walter: 90.4 cm/sec TR max walter: 247.0 cm/sec MV dec time: 0.18 sec TR max P.4 mmHg SV(LVOT): 59.1 ml AV VR_phl: 0.54 KM(VTI)/BSA_phl: 1.0 MV P1/2t-pr_phl: 53.0 msec Reading Physician:06:17 PM
== END ==
PROVIDERS: PCP Internal Medicine; Referring Provider Internal Medicine Cardiovascular Disease; Visit Provider Internal Medicine Cardiovascular Disease
DX: I07.1 Rheumatic tricuspid insufficiency (principal); I48.91 Unspecified atrial fibrillation
CPT/HCPCS: 93306

== ENCOUNTER → 2021-03-17 13:38 | Outpatient (ROUT) | payer OTHER, SELFPAY ==
[2020-07-01 06:30] VITALS: BMI 33.9
[2021-03-17 13:56] LABS: INR 2.3 (0.9-1.3); Prothrombin Time 26.4 SECONDS (10.1-12.7)
== END ==
PROVIDERS: PCP Internal Medicine; Visit Provider Student in an Organized Health Care Education/Training Program
DX: I48.20 Chronic atrial fibrillation, unspecified (principal)
CPT/HCPCS: 85610

== ENCOUNTER → 2021-04-15 14:47 | Outpatient (CLI) | payer OTHER, SELFPAY ==
[2020-07-01 06:30] VITALS: BMI 33.9
--- NOTE | 2021-04-15 16:12 | DIAB.MNTFU ---
Follow-up Diabetes Medical Nutrition Therapy Assessment Name: Marty Heard Date: 04/15/21 Time: 3-345p Dx: Type II Diabetes Marty presents today for follow-up regarding T2DM. Has seen PCP since last visit. Had labs drawn prior, but he cannot remember recent HgA1c value. BG cont above target, likely due to need for more insulin and high carb intake. Cont with social struggles with his . Reports arguments with her if he tries to cook, asks for specific changes to meals, etc. States currently she is the person that grocery shops, but he is considering doing this to choose better options. Plans to see PCP again this month. Diet recall indicates limited protein intake at breakfast and lunch. Most meals are primarily carbohydrate. Dinner is balanced. With recent increase in lantus and balanced dinner meals elevations have improved over the last few days. Cont to have elevations after breakfast and dinner. Diet Recall: B: cheerios, milk, banana L: sandwich with PBJ or meat or just jelly and 12oz milk D: protein (steak, chicken, fish) with mashed potatoes, salad, and 12oz milk Beverages; milk, crystal light, water, tea Anthropometrics: Ht: 6' Wt: 240-250# reported Physical Activity: None, mobility barrier. Self-Monitoring Blood Glucose: Improved BG this week but cont above target for averages and TIR. Has had a few blood sugars in the 200-300s, mostly after breakfast or lunch. Still waking with elevated FBG of 1860-190 mg/dL most days. No lows recently. Today: TIR 7 days: 50% Highs: 50% 7d av 14d av 30d av Last visit: 7d av 14d av 30d av Diabetes Medications: Lantus was inc by provider to 36u (potential for cont titration if provider agrees) Novolo, 9, 15 u (potential for inc for breakfast and lunch) Pertinent Labs: no new labs available. CDC[facility]/RD will reach out to provider office. Past Medical History: (Last Reviewed 07/01/20 @ 11:56 by Adonay Vaca MD) Cancer of left ear Chronic atrial fibrillation with RVR Community acquired pneumonia COVID-19 Diabetes E coli infection Hernia of abdominal cavity History of throat surgery Excision benign lesion 2010 History of transurethral resection of prostate 2010 Hypothyroidism Inguinal hernia bilateral, non-recurrent Melanoma Prostate cancer Right eye injury and blind Status post bilateral hernia repair 1989 Nutrition Rx: Plate method Nutrition Diagnosis: Excessive carb intake r/t nutrition knowledge deficit and lack of management of his own meals aeb pt report Intervention: This participant was very receptive. Provided appropriate educational handouts. Discussed the following topics: Blood sugar review and trends. Impact of food intake on results. Reviewed which foods are carbs and protein Discussed how fruit and milk impact BG Plate method Adding protein to meals easily, ie slice of cheese, hard boiled egg grocery shopping tips Social barriers Created SMART goals for patient self-care and success. Goals: write down what and when you eat- in progress (did not bring today) Try to avoid or reduce jelly intake- new Try to limit fruit in cereal- new Add protein to breakfast- new Add HB egg or cheese slice Follow-up: HUSAM HERNANDEZ follow-up in 4-5 weeks Unfortunately, there are barriers at home that Marty has with his in terms of meal prep and grocery shopping. We reviewed nutrition information today to help him recognize carb and protein foods. It seems he would likely benefit from additional medication management for hyperglycemia. Might benefit from titration of insulin if PCP agrees. Sees provider this month and plans to discuss this further with her. Agueda Pineda RDN, [facility] Certified Diabetes Care and [employer] P: [phone] Thank you for this referral
== END ==
PROVIDERS: PCP Internal Medicine; Referring Provider Internal Medicine; Visit Provider Internal Medicine
DX: E11.9 Type 2 diabetes mellitus without complications (principal)
CPT/HCPCS: 97803

== ENCOUNTER → 2021-05-22 10:45 | Outpatient (CLI) | payer OTHER, SELFPAY ==
[2020-07-01 06:30] VITALS: BMI 33.9
--- NOTE | 2021-07-01 13:25 | DIAB.MNTFU ---
Follow-up Diabetes Medical Nutrition Therapy Assessment Name: Marty Heard Date: 05/22/21 Time: 11-1150a Dx: Type II Diabetes Diet recall indicates most meals not excessive in CHO intake. Dessert seems to impact evening BG, ie sherber almost q night. Cont with 36u Lantus and novolog 12, 9, 15. Physical Activity: has resistance bands at home. has a fall alarm. h/o PT issues with scheduling. Back pain and arthritis are the main barriers. Self-Monitoring Blood Glucose: FBG cont above target. BG seem to improve in the afternoon. HS and dinner elevation may be r/t sherbert q night for dessert with dinner. TIR and BG averages improved from last visit: Today: TIR 7 days: 62% Highs: 38% 7d av 14d av 30d av Last Visit: TIR 7 days: 50% Highs: 50% 7d av 14d av 30d av Date Pre Post Pre Post Pre Post HS 05/19 149 111 136 208 3/8 174 114 238 3/9 151 169 217 /10 232 Diabetes Medications: Lantus was inc by provider to 36u (potential for cont titration if provider agrees) Novolo, 9, 15 u (potential for inc for breakfast and lunch) Pertinent Labs: HgA1c reported by PCP office over phone: 8.5% (2) ; 8.2% 03/04 ; 7.5% 09/02 Past Medical History: (Last Updated 06/17/21 @ 14:10 by Anson Bauer MD) Arthritis Cancer of left ear Chronic atrial fibrillation with RVR Community acquired pneumonia COVID-19 Diabetes E coli infection H/O colectomy H/O vasectomy Hernia of abdominal cavity High blood pressure History of back pain History of throat surgery Excision benign lesion 2010 History of transurethral resection of prostate 2010 Hx of cholecystectomy Hx of circumcision Hx of prostate biopsy Hypothyroidism Inguinal hernia bilateral, non-recurrent Kidney stones Male circumcision Melanoma Prostate cancer Right eye injury and blind Status post bilateral hernia repair 1989 Nutrition Rx: Plate method Nutrition Diagnosis: Excessive carb intake r/t nutrition knowledge deficit and lack of management of his own meals aeb pt report - in progress Intervention: This participant was very receptive. Provided appropriate educational handouts. Discussed the following topics: Blood sugar review and trends. Impact of food intake on results. Impact of desserts on BG Physical activity plan and barriers Created SMART goals for patient self-care and success. Goals: Try to avoid or reduce jelly intake- met Try to limit fruit in cereal- met Add protein to breakfast- 50% met Add HB egg or cheese slice Keep sherbert to 1x per week- new Try SF Popsicle- new Follow-up: HUSAM HERNANDEZ follow-up in 4 weeks Agueda Pineda RDN, [facility] Certified Diabetes Care and Print Production Coordinator P: [phone] Thank you for this referral
== END ==
PROVIDERS: PCP Internal Medicine; Referring Provider Internal Medicine; Visit Provider Internal Medicine
DX: E11.9 Type 2 diabetes mellitus without complications (principal)
CPT/HCPCS: 97803

== ENCOUNTER → 2021-05-26 14:07 | Outpatient (CLI) | payer OTHER, SELFPAY ==
[2020-07-01 06:30] VITALS: BMI 33.9
[2021-05-26 15:38] LABS: Prostate Specific Antigen 7.14 ng/mL (0.10-4.00)
== END ==
PROVIDERS: PCP Internal Medicine; Referring Provider Urology; Visit Provider Urology
DX: R97.20 Elevated prostate specific antigen [PSA] (principal); R03.0 Elevated blood-pressure reading, without diagnosis of hypertension
CPT/HCPCS: 36415; 51798; 84153

== ENCOUNTER → 2021-06-05 11:24 | Outpatient (CLI) | payer OTHER, SELFPAY ==
[2020-07-01 06:30] VITALS: BMI 33.9
--- NOTE | 2021-06-05 11:28 | DI.CT.S_ITS ---
PROCEDURE: CT KIDNEY URETER BLADDER (KUB) INDICATIONS: history of prostate cancer TECHNIQUE: Axial sections were acquired from the lung bases to the pubic symphysis. Coronal and sagittal reformats were performed. For radiation dose reduction, the following was used: automated exposure control, adjustment of mA and/or kV according to patient size. COMPARISON: [facility], CT, CT ABDOMEN PELVIS W CON, 05/23/2020, 17:39. [facility], CT, CT ABDOMEN PELVIS WO CON, 07/16/2019, 13:18. [facility], CT, KIDNEY/ URETER/BLADDER, 11/12/2009, 16:15. FINDINGS: Image quality: Excellent. Lung bases: Unremarkable. Heart: No significant findings. URINARY: Right Kidney: No hydronephrosis. A nonobstructing 6 mm right and kidney stone is seen. Right Ureter: No hydroureter. Left Kidney: No stones or hydronephrosis. Exophytic from the left kidney laterally, there is a simple water density cyst seen measuring 2.2 cm. Left Ureter: No hydroureter. Bladder: Normal wall thickness. No stones. ABDOMEN: Liver: Likely liver cysts are seen. The liver demonstrates normal size and demonstrates no suspicious lesions.5 Gallbladder: Removed. Biliary ducts: Unremarkable. Pancreas: Unremarkable. Spleen: Unremarkable. Adrenal Glands: Unremarkable. Stomach and Bowel: Stomach, small bowel loops, and colon are unremarkable. Generalized mild colonic diverticulosis is seen, without findings of active diverticulitis. Peritoneum: No abnormal intraperitoneal fluid. No free air. Ventral Wall: No hernia. Abdominal Nodes: No enlarged retroperitoneal or mesenteric lymph nodes. Vessels: Aorta and inferior vena cava are normal in size. Atherosclerotic calcification is noted. PELVIS: Pelvic Organs: Unremarkable. Pelvic Nodes: Unremarkable. Miscellaneous: Bilateral fat containing inguinal hernias are seen. Bones: No suspicious a blastic lesions are seen. Generalized degenerative changes are seen, with numerous bridging endplate osteophytes. The bones are overall osteopenic. Mild bridging can be seen of the sacroiliac joints. IMPRESSION: To the limits of this noncontrast CT, no findings of metastatic disease are seen. Abnormal appearing bones, with osteopenia and bridging endplate osteophytes. Please consider diffuse idiopathic skeletal hyperostosis versus ankylosing spondylitis. Incidental note is made of: Cholecystectomy Nonobstructing 6 mm right-sided kidney stone Left renal cyst Mild colonic diverticulosis, without active diverticulitis. Bilateral fat containing inguinal hernias Dictated by: Tony Mckinney M.D. on 06/05/2021 at 14:48 Approved by: Tony Mckinney M.D. on 06/05/2021 at 14:53
== END ==
PROVIDERS: PCP Internal Medicine; Referring Provider Urology; Visit Provider Urology
DX: Z85.46 Personal history of malignant neoplasm of prostate (principal); Z08 Encounter for follow-up examination after completed treatment for malignant neoplasm; N20.0 Calculus of kidney; N28.1 Cyst of kidney, acquired; K57.90 Diverticulosis of intestine, part unspecified, without perforation or abscess without bleeding; K40.20 Bilateral inguinal hernia, without obstruction or gangrene, not specified as recurrent
CPT/HCPCS: 74176

== ENCOUNTER → 2021-06-17 14:26 | Outpatient (CLI) | payer OTHER, SELFPAY ==
[2020-07-01 06:30] VITALS: BMI 33.9
--- NOTE | 2021-06-17 14:40 | DI.RAD.S_ITS ---
PROCEDURE: XR KUB INDICATIONS: Right urinary calculus TECHNIQUE: One view of the abdomen acquired. COMPARISON: None. FINDINGS: Surgical changes and devices: Cholecystectomy clips are present. Bowel: Bowel gas pattern is normal. Soft tissues: No suspicious abdominal calcifications. Visualized solid organ contours appear normal in size. Bones: No suspicious bony lesions. IMPRESSION: No acute process. Dictated by: Ritika Conn M.D. on 06/17/2021 at 16:13 Approved by: Ritika Conn M.D. on 06/17/2021 at 16:39
== END ==
PROVIDERS: PCP Internal Medicine; Referring Provider Urology; Visit Provider Urology
DX: C61 Malignant neoplasm of prostate (principal); R30.0 Dysuria; R97.21 Rising PSA following treatment for malignant neoplasm of prostate; N20.0 Calculus of kidney
CPT/HCPCS: 74018; 87086; 99215

== ENCOUNTER → 2021-07-01 10:47 | Outpatient (CLI) | payer OTHER, SELFPAY ==
[2020-07-01 06:30] VITALS: BMI 33.9
== END ==
PROVIDERS: PCP Internal Medicine; Visit Provider Urology
DX: C61 Malignant neoplasm of prostate (principal); N20.0 Calculus of kidney; R30.0 Dysuria
CPT/HCPCS: 51798; 81002; 87086; 96402; 99213; J9217

== ENCOUNTER → 2021-07-01 12:51 | Outpatient (CLI) | payer OTHER, SELFPAY ==
[2020-07-01 06:30] VITALS: BMI 33.9
[2021-07-01 11:19] VITALS: BMI 33.9
--- NOTE | 2021-07-01 17:09 | DIAB.FU ---
Follow-up Diabetes Education Assessment Name: Marty Heard Date: 07/01/21 Time: 130-230p Dx: Type II Diabetes Marty presents for diabetes follow-up. States home life continues to be ?hot and cold? with his and her health/dementia. Social barrier includes, she does not allow him in the kitchen. She may make lunch or dinner late and he cannot go make a sandwich per report. Reports he has a new diagnosis of prostate cancer. Seeing specialist. BG unfortunately higher than last visit. Denies any particular changes. Cont on insulin regimen. Denies any nutrition changes. Has tried SF pops, did not like them. Has reduced sherbert to 3-4 days per week from everyday. Anthropometrics: Wt: 240# reported Physical Activity: Physical capability barriers and readiness to change. Has experience with exercise and PT. LE exercises not an option per report. Can do UE exercises and has resistance bands per report. Self-Monitoring Blood Glucose: Recent mornings pretty consistently in the 200s, always >150 mg/dL. TIR reduced and highs increased. Averages up from last visit. Some lows. Per CGM, 2 readings in June <70 mg/dL and 4 readings <80 mg/dL. Treats with OJ. Some concern with increasing meal time insulin regimen given some lows. Especially since BG were improved last visit without lows on same regimen. Does have some room on Lantus to increase. Today: TIR: 31% Highs: 68% 7d av 14d av 30d av Last Visit: TIR 7 days: 62% Highs: 38% 7d av 14d av 30d av Diabetes Medications: Lantus was inc by provider to 36u (potential for cont titration if provider agrees) Novolo, 9, 15 u Pertinent Labs: HgA1c reported by PCP office over phone: 8.5% (2/) ; 8.2% 03/04 ; 7.5% 09/02 Past Medical History: (Last Updated 06/17/21 @ 14:10 by Anson Bauer MD) Arthritis Cancer of left ear Chronic atrial fibrillation with RVR Community acquired pneumonia COVID-19 Diabetes E coli infection H/O colectomy H/O vasectomy Hernia of abdominal cavity High blood pressure History of back pain History of throat surgery Excision benign lesion 2010 History of transurethral resection of prostate 2010 Hx of cholecystectomy Hx of circumcision Hx of prostate biopsy Hypothyroidism Inguinal hernia bilateral, non-recurrent Kidney stones Male circumcision Melanoma Prostate cancer Right eye injury and blind Status post bilateral hernia repair 1989 Intervention: This participant was very receptive. Provided appropriate educational handouts. Discussed the following topics: Recent blood sugar results and trends Medication management Review of plate method, general nutrition recommendations and current intake Physical activity plan and impact on blood sugars Encouraged further discussion with provider about any insulin changes Created SMART goals for patient self-care and success. Goals: Add protein to breakfast- 75% met Add HB egg or cheese slice Keep sherbert to 1x per week- 50% met Try SF Popsicle- met Try upper body exercises safely- new Follow-up: HUSAM HERNANDEZ follow-up in August. Would benefit from quicker f/u given hyperglycemia with both RD and PCP. Has PCP visit scheduled in August as well. His transportation is unavailable in July. Agueda Pineda RDN, [facility] Certified Diabetes Care and Finance Effectiveness Manager P: [phone] Thank you for this referral
== END ==
PROVIDERS: PCP Internal Medicine; Referring Provider Internal Medicine; Visit Provider Internal Medicine
DX: E11.65 Type 2 diabetes mellitus with hyperglycemia (principal); C61 Malignant neoplasm of prostate; Z71.3 Dietary counseling and surveillance; Z79.4 Long term (current) use of insulin
CPT/HCPCS: G0108

== ENCOUNTER 2021-07-17 12:08 | Emergency (ER) | payer OTHER, SELFPAY ==
[2021-07-01 11:19] VITALS: BMI 33.9
[2021-07-17 12:29] VITALS: BP 121/59; PULSE 75; RESP 15; TEMP 36.7; O2SAT 96; BMI 32.5
--- NOTE | 2021-07-17 12:41 | ED.BACK ---
HPI - Back Pain/Injury <FRANK Tirado - Last Filed: 07/17/21 16:06> General Chief Complaint: Back Pain/Injury Stated Complaint: Back pain Time Seen by Provider: 07/17/21 12:25 Source: patient History of Present Illness HPI Narrative: 85 year old male nonsmoker with history AFib on warfarin, diabetes, CHF, and chronic low back pain who presents to the emergency department complaining of exacerbation of his low back pain and spasms that kept him up last night. Patient states that he takes tramadol for this pain, and it has not touched at this time. He states that he is wearing a lidocaine patch currently denies any urinary frequency, urinary problems although he does have a history of prostate cancer and sees his urologist Dr. Bauer in a few days. Patient endorses some mild constipation but denies any other problematic symptoms other than his back pain. He is wearing his back brace which has Velcro on the anterior, is ambulatory, denies any weakness, sensation changes, mental status changes, dizziness, or headache. He denies any new trauma. Patient has a history of AFib on warfarin, denies any swelling, shortness of breath with exertion, or any other new symptoms currently. Related Data Home Medications Medication Instructions Recorded Confirmed levothyroxine 50 mcg tablet 50 mcg PO MOTUWETHFRSA 09/16/17 07/01/21 warfarin 5 mg tablet (Coumadin) 5 mg PO QACDINNER 07/20/18 07/01/21 ferrous sulfate 325 mg (65 mg 325 mg PO DAILY 07/11/19 07/01/21 iron) tablet (Iron (ferrous sulfate)) warfarin 5 mg tablet 5 mg PO QPM 01/05/20 07/01/21 docusate sodium 100 mg PO DAILY 01/06/20 07/01/21 furosemide 80 mg tablet 80 mg PO DAILY 01/06/20 07/01/21 mecobalamin (vitamin B12) 1,000 1,000 mcg PO DAILY 05/26/21 07/01/21 mcg chewable tablet [id number] 3.5 drp OPHTHALMIC (EYE) 05/26/21 07/01/21 mg/mL-10,000 unit/mL-0.1% eye drops (Maxitrol) novolog flexpen SUBCUT 05/26/21 07/01/21 rosuvastatin 5 mg tablet 5 mg PO DAILY 05/26/21 07/01/21 sennosides 8.6 mg tablet (senna) 8.6 mg PO DAILY 05/26/21 07/01/21 triamcinolone acetonide 0.1 % 1 applic TOPICAL DAILY 05/26/21 07/01/21 topical cream Previous Rx's Medication Instructions Recorded digoxin 125 mcg (0.125 mg) tablet 0.125 mg PO DAILY #30 tab 10/01/19 metoprolol tartrate 25 mg tablet 12.5 mg PO BID #30 tab 10/01/19 midodrine 5 mg tablet 5 mg PO 0600,1200,1800 #15 tab 10/01/19 insulin glargine 100 unit/mL (3 35 unit (0.35 mL) SUBCUT BID #15 ml 06/29/20 mL) subcutaneous pen (Lantus Solostar U-100 Insulin) tramadol 50 mg tablet 50 mg PO Q8H PRN #10 tab 07/02/20 mupirocin 2 % topical ointment 1 applic TOPICAL TID #15 g 01/08/21 bicalutamide 50 mg tablet (Casodex) 50 mg PO DAILY #30 tab 06/17/21 diclofenac sodium 1 % topical gel 2 g TOPICAL QID #100 g 07/17/21 (Voltaren Arthritis Pain) hydrocodone 5 mg-acetaminophen 325 1 tab PO BID PRN #14 tab 07/17/21 mg tablet lidocaine 5 % topical patch 1 patch TOPICAL DAILY PRN #15 ea 07/17/21 methocarbamol 500 mg tablet 500 mg PO BEDTIME PRN #14 tab 07/17/21 Allergies Allergy/AdvReac Type Severity Reaction Status Date / Time Penicillins Allergy Unknown Verified 07/17/21 12:34 Review of Systems <Audra Romero [facility] - Last Filed: 07/17/21 16:06> Review of Systems Narrative: General: denies fever, chills, malaise, sweats, fatigue Head/Neck: denies headache, neck pain, dizziness Eyes: denies visual changes, eye pain Cardio: denies chest pain, palpitations, edema Respiratory: denies dyspnea, cough, orthopnea GI: denies abdominal pain, nausea, vomiting, or diarrhea : denies dysuria, hematuria, urinary retention, frequency or incontinence MSK: denies joint pain, muscle weakness, endorses low back pain which is spasm-like and unpredictable when it was spasm, denies any radiation of this pain Skin: denies rash, itching, skin lesions or other Neuro: denies numbness, tingling Patient History <FRANK Tirado - Last Filed: 07/17/21 16:06> Medical History Arthritis Cancer of left ear Chronic atrial fibrillation with RVR Community acquired pneumonia COVID-19 Diabetes E coli infection Hernia of abdominal cavity High blood pressure History of back pain Hypothyroidism Inguinal hernia bilateral, non-recurrent Kidney stones Male circumcision Melanoma Prostate cancer Right eye injury Surgical History H/O colectomy H/O vasectomy History of throat surgery History of transurethral resection of prostate Hx of cholecystectomy Hx of circumcision Hx of prostate biopsy Status post bilateral hernia repair Family History Mother Coronary artery disease Father Diabetes mellitus Hearing impairment Spouse CVA (cerebrovascular accident due to intracerebral hemorrhage) Kidney stones Social History marital status: number of children: 4 household members: spouse Smoking Status: Never smoker alcohol intake: former Type(s) of exercise: none Smoking Status: Never smoker alcohol intake frequency: 0-2 drinks per day Substance Use Type: does not use Exam <FRANK Tirado - Last Filed: 07/17/21 16:06> Narrative Exam Narrative: Independently reviewed vitals signs and nursing notes. General: cooperative, comfortable, in no acute distress, well developed and well groomed, good historian, sitting upright in his back brace Head: atraumatic, symmetrical facial expressions Neck: supple, atraumatic, without lymphadenopathy. Eyes: pupils equal round and reactive, EOMI, conjunctiva normal Nose: nares patent, no rhinorrhea Mouth/Throat: uvula midline, moist mucus membranes Cardiovascular: regular rate and rhythm, no peripheral edema, warm extremities Respiratory: normal effort, able to speak in complete sentences, no audible wheezing, stridor, or rales. No retractions or tachypnea. GI: abdomen soft, nontender to palpation, nondistended, no masses, no exquisite tenderness with exam, without guarding or rebound. MSK: moves all extremities, neurovascularly intact, no weakness, ambulatory with steady gait, strength appears equal bilaterally, denies any urinary retention or difficulty urinating Skin: brisk capillary refill, no rash, no erythema, no discoloration or signs of trauma to his back Neuro: normal speech and cognition, A&O x3, normal tone Psych: mental status is grossly normal, congruent mood, normal affect, pleasant and cooperative Initial Vital Signs Initial Vital Signs: Vital Signs Temperature 98.0 F 07/17/21 12:29 Pulse Rate 75 07/17/21 12:29 Respiratory Rate 15 07/17/21 12:29 Blood Pressure 121/59 L 07/17/21 12:29 Pulse Oximetry 96 07/17/21 12:29 <Cristel Howe DO - Last Filed: 07/22/21 07:07> Initial Vital Signs Initial Vital Signs: Vital Signs Temperature 98.0 F 07/17/21 12:29 Pulse Rate 75 07/17/21 12:29 Respiratory Rate 15 07/17/21 12:29 Blood Pressure 121/59 L 07/17/21 12:29 Pulse Oximetry 96 07/17/21 12:29 Course <FRANK Tirado - Last Filed: 07/17/21 16:06> Orders Ordered: Discontinued Medications Acetaminophen (Acetaminophen 325 Mg Tablet) 650 mg PO NOW ONE Stop: 07/17/21 12:46 Last Admin: 07/17/21 13:05 Dose: 650 mg Documented by: GISELL Hydrocodone Bitart/Acetaminophen (Hydrocodone/Acet 5/325 Tablet) 1 tab PO NOW ONE Stop: 07/17/21 12:42 Last Admin: 07/17/21 13:05 Dose: 1 tab Documented by: GISELL Vital Signs Vital signs: Vital Signs - 8 hr 07/17/21 12:29 07/17/21 13:10 Temperature 98.0 F Pulse Rate 75 77 Respiratory Rate 15 18 Blood Pressure 121/59 L 107/56 L Pulse Oximetry 96 98 <Cristel Howe DO - Last Filed: 07/22/21 07:07> Orders Ordered: Discontinued Medications Acetaminophen (Acetaminophen 325 Mg Tablet) 650 mg PO NOW ONE Stop: 07/17/21 12:46 Last Admin: 07/17/21 13:05 Dose: 650 mg Documented by: GISELL Hydrocodone Bitart/Acetaminophen (Hydrocodone/Acet 5/325 Tablet) 1 tab PO NOW ONE Stop: 07/17/21 12:42 Last Admin: 07/17/21 13:05 Dose: 1 tab Documented by: GISELL Vital Signs Vital signs: Vital Signs - 8 hr 07/17/21 12:29 07/17/21 13:10 Temperature 98.0 F Pulse Rate 75 77 Respiratory Rate 15 18 Blood Pressure 121/59 L 107/56 L Pulse Oximetry 96 98 [facility] - Back Pain/Injury <JETHRO TiradoP - Last Filed: 07/17/21 16:06> [facility] Narrative Medical decision making narrative: This is an 85-year-old male who presents to the emergency department complaining of acute exacerbation of chronic low back pain with spasms that kept him up last night. Patient has a history of chronic AFib on warfarin, takes tramadol for his chronic back pain, endorses worsening of this back pain and tramadol not helping, he is currently wearing a lidocaine patch and his back brace. No new weakness, dizziness, alteration in his gait, fever, illness, fatigue or other symptom. Patient denies radiation of his symptoms down his legs, states that is exactly in the center of his lower back where his prior lumbar pain and issues have been. No imaging obtained today due to lack of trauma. Patient was given a prescription of hydrocodone and methocarbamol for his spasms. He was instructed to not take these together and was given hydrocodone only in the emergency department. He has a massage chair at home with heat and vibration, he is encouraged to use this frequently, he uses a walker at baseline, or a cane at home, he is instructed to always have his walking assist available, wear his call button at all times, stay hydrated and eat food with his medications and we discussed taking stool softeners because he endorses some constipation. Patient understands to take 1 medicine during the day and to take his methocarbamol at night for muscle spasms. Encourage patient to return to the emergency department for worsening of his symptoms, to follow-up with his primary doctor, and to be extra safe at home while he has back spasms to prevent falling. Patient is appropriate and amenable to discharge home. Vital signs are stable on repeat examination is unremarkable. Patient has been informed of results. Patient has been given strict return to ER precautions for any new or worsening symptoms. Patient understands to follow up closely with outpatient providers as instructed. Patient understands plan and agrees to discharge home. All questions and concerns answered at this time. Discharge Plan Departure Patient Disposition: Home Clinical Impression: Acute exacerbation of chronic low back pain Instructions: DI for Low Back Pain, DI for Back Spasm Activity Restrictions/Additional Instructions: *You have been diagnosed with an acute exacerbation of chronic low back pain. Your spasms are likely what is keeping you up at night. Please use the Robaxin as needed before bed to help relax muscles so that you can not sleep. Please use the hydrocodone for breakthrough pain in addition to Tylenol and tramadol. Please continue using lidocaine patches, heat, and your vibration chair. Please follow-up at your appointment on 07/24/2021 or return to the emergency department for any worsening of your symptoms, inability to void, nausea, vomiting, or weakness. Please use a walker or a cane at all times while your back is hurting for stability. Have prescribed for you a topical anti-inflammatory gel that can be used on sore knees or your sore low back. I hope it feels better soon. It was nice to meet you. *What to do: *Please continue to take your regular medications as directed. [x ] New medication prescriptions sent to your pharmacy: [[facility] ] [ ] New medication written as a paper prescription [ ] No new medications given *Please follow up with your primary care provider in 2-3 days, call for an appointment. Let them know you were seen in the Emergency Department and that we asked that you be seen for follow-up. We will electronically transmit a record of today's note if your PCP is in our system *If you do not have a primary care provider please contact [phone] to establish care with one of the [facility] primary care providers. *Return to Emergency Department if you should have any new, worsening or concerning symptoms, such as [fever greater than 101F, chills, worsening pain, persistent vomiting or other bothersome symptoms] Prescriptions: New methocarbamol 500 mg tablet 500 mg PO BEDTIME PRN (Reason: muscle spasm) Qty: 14 0RF hydrocodone-acetaminophen 5-325 mg tablet 1 tab PO BID PRN (Reason: pain) Qty: 14 0RF Rx Instructions: Do not take at the same time as the methocarbamol, they are sedating together and I do not want you to fall. lidocaine 5 % adhesive patch,medicated 1 patch topical DAILY PRN (Reason: pain) Qty: 15 0RF Rx Instructions: leave on most painful area for up to 12 hrs diclofenac sodium [Voltaren Arthritis Pain] 1 % gel 2 g topical QID Qty: 100 0RF Rx Instructions: apply to single elbow, wrist or hand; for hand includes palm/fingers/back of hand No Action mupirocin 2 % ointment 1 applic topical TID Qty: 15 0RF ferrous sulfate [Iron (ferrous sulfate)] 325 mg (65 mg iron) Tablet 325 mg PO DAILY 0RF midodrine 5 mg Tablet 5 mg PO 0600,1200,1800 Qty: 15 0RF Rx Instructions: Pt states his doctor took him off of this for a while; hes not sure why digoxin 125 mcg (0.125 mg) Tablet 0.125 mg PO DAILY Qty: 30 0RF metoprolol tartrate 25 mg Tablet 12.5 mg PO BID Qty: 30 0RF tramadol 50 mg tablet 50 mg PO Q8H PRN (Reason: pain) Qty: 10 0RF levothyroxine 50 mcg Tablet 50 mcg PO MOTUWETHFRSA 0RF Rx Instructions: I tablet by mouth daily, except 2 tablets by mouth on Sundays warfarin [Coumadin] 5 mg Tablet 5 mg PO QACDINNER 0RF Rx Instructions: M/Sat 5mg, ///Sun 2.5mg warfarin 5 mg tablet 5 mg PO QPM 0RF docusate sodium 100 mg 100 mg PO DAILY 0RF furosemide 80 mg Tablet 80 mg PO DAILY 0RF Rx Instructions: 1 tablet by mouth daily Lantus Solostar U-100 Insulin 100 unit/mL (3 mL) Insulin Pen 35 unit SUBCUT BID Qty: 15 0RF neomycin-polymyxin B-dexameth [Maxitrol] 3.5mg/mL-10,000 unit/mL-0.1 % drops,suspension ophthalmic (eye) 0RF novolog flexpen SUBCUT 0RF Rx Instructions: 12 units at breakfast, 9 units at lunch, and 15 units at dinner. rosuvastatin 5 mg tablet 5 mg PO DAILY 0RF sennosides [senna] 8.6 mg tablet 8.6 mg PO DAILY 0RF triamcinolone acetonide 0.1 % cream 1 applic topical DAILY 0RF mecobalamin (vitamin B12) 1,000 mcg tablet,chewable 1,000 mcg PO DAILY 0RF bicalutamide [Casodex] 50 mg tablet 50 mg PO DAILY Qty: 30 0RF Referrals: Lo Figueroa MD [Primary Care Provider] - <Cristel Howe DO - Last Filed: 07/22/21 07:07> Cosign ED Attending Cosignature Attestation: I was immediately available in the department for consultation. Documentation has been reviewed. I agree with assessment and plan.
[2021-07-17] MEDS: ACETAMINOPHEN 325 MG TABLET 650 MG PO (13:05)
[2021-07-17] MEDS: HYDROCODONE/ACET 5/325 TABLET 1 TAB PO (13:05)
[2021-07-17 13:10] VITALS: BP 107/56; PULSE 77; RESP 18; O2SAT 98
== END 2021-07-17 13:30 | disposition home or self-care (01) ==
PROVIDERS: Emergency Provider Nurse Practitioner Critical Care Medicine; PCP Internal Medicine
DX: M54.50 Low back pain, unspecified (principal); G89.29 Other chronic pain
CPT/HCPCS: 99283

== ENCOUNTER → 2021-08-18 12:26 | Outpatient (CLI) | payer OTHER, SELFPAY ==
[2021-07-01 11:19] VITALS: BMI 33.9
== END ==
PROVIDERS: PCP Internal Medicine; Referring Provider Urology; Visit Provider Urology
DX: C61 Malignant neoplasm of prostate (principal)
CPT/HCPCS: 36415; 84153

== ENCOUNTER → 2021-08-26 14:16 | Outpatient (CLI) | payer OTHER, SELFPAY ==
[2021-07-01 11:19] VITALS: BMI 33.9
[2021-08-26 17:49] LABS: Prostate Specific Antigen 0.348 ng/mL (0.10-4.00)
== END ==
PROVIDERS: Urology; PCP Internal Medicine; Referring Provider Internal Medicine; Visit Provider Internal Medicine
DX: C61 Malignant neoplasm of prostate (principal)
CPT/HCPCS: 36415; 84153

== ENCOUNTER → 2021-09-02 10:41 | Outpatient (CLI) | payer OTHER, SELFPAY ==
[2021-07-01 11:19] VITALS: BMI 33.9
== END ==
PROVIDERS: PCP Internal Medicine; Visit Provider Urology
DX: C61 Malignant neoplasm of prostate (principal); N20.0 Calculus of kidney; R30.0 Dysuria; Z79.01 Long term (current) use of anticoagulants
CPT/HCPCS: 87077; 87086; 99213

== ENCOUNTER → 2021-10-06 12:23 | Outpatient (CLI) | payer OTHER, SELFPAY ==
[2021-07-01 11:19] VITALS: BMI 33.9
--- NOTE | 2021-10-06 12:25 | DI.RAD.S_ITS ---
PROCEDURE: XR KUB INDICATIONS: Right renal calculus TECHNIQUE: One view of the abdomen acquired. COMPARISON: [facility], , XR KUB, 06/17/2021, 14:45. FINDINGS: Surgical changes and devices: Cholecystectomy clips. Bowel: Bowel gas pattern is normal. Soft tissues: No suspicious abdominal calcifications. Visualized solid organ contours appear normal in size. Bones: No suspicious bony lesions. IMPRESSION: No definitive radiopaque renal, ureteral or bladder calculi. Dictated by: Frank Cisneros [facility] Interpreted: Ramsey Maurice MD on 10/06/2021 at 15:28 Transcribed by: CHRIS on 10/06/2021 at 15:29 Approved by: Ramsey Maurice M.D. on 10/06/2021 at 16:52
[2021-10-06 14:24] LABS: Prostate Specific Antigen 0.153 ng/mL (0.10-4.00)
== END ==
PROVIDERS: PCP Internal Medicine; Referring Provider Urology; Visit Provider Urology
DX: R97.20 Elevated prostate specific antigen [PSA] (principal); N20.0 Calculus of kidney
CPT/HCPCS: 36415; 74018; 84153

== ENCOUNTER → 2021-11-03 14:36 | Outpatient (CLI) | payer OTHER, SELFPAY ==
[2021-07-01 11:19] VITALS: BMI 33.9
[2021-11-03 16:22] LABS: BUN Creatinine Ratio 19.4 (6-22); Blood Urea Nitrogen 34 mg/dL (9-20); Calcium 8.6 mg/dL (8.4-10.2); Carbon Dioxide 28 mmol/L (22-32); Chloride 107 mmol/L (98-107); Estimated Glomerular Filt Rate 37 mL/min (>60); Glucose 208 mg/dL (80-110); HEMOLYSIS < 15 (0-50); Potassium 4.2 mmol/L (3.4-5.1); Sodium 140 mmol/L (137-145)
[2021-11-03 16:23] LABS: Creatinine Urine Random 84.4 mg/dL
[2021-11-03 16:29] LABS: Microalbumi Creatinin Ratio Ur 82.9 ug/mg CR (<30)
== END ==
PROVIDERS: PCP Internal Medicine; Referring Provider Internal Medicine Nephrology; Visit Provider Internal Medicine Nephrology
DX: N18.9 Chronic kidney disease, unspecified (principal)
CPT/HCPCS: 36415; 80048; 82043; 82570

== ENCOUNTER 2021-12-02 15:24 | Inpatient (IN) | payer OTHER, SELFPAY ==
[2021-07-01 11:19] VITALS: BMI 33.9
[2021-12-02] VITALS (23 sets, daily range): BP systolic 94–154; BP diastolic 49–91; PULSE 78–117; RESP 16–22; TEMP 36.6; O2SAT 93–100; BMI 32.5
--- NOTE | 2021-12-02 15:41 | DI.CT.S_ITS ---
PROCEDURE: CT HEAD/BRAIN WO CON INDICATIONS: fall TECHNIQUE: Noncontrast 4.5 mm thick angled axial sections acquired from the foramen magnum to the vertex, with coronal and sagittal reformats. For radiation dose reduction, the following was used: automated exposure control, adjustment of mA and/or kV according to patient size. COMPARISON: None. FINDINGS: Severe global cerebral volume loss and chronic microvascular ischemic change. 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 No acute intracranial hemorrhage. No mass effect or midline shift. No acute orbital abnormality. Predominantly clear paranasal sinuses and mastoid air cells. IMPRESSION: No acute intracranial finding Dictated by: Franki Hernandez M.D. on 12/02/2021 at 16:24 Approved by: Franki Hernandez M.D. on 12/02/2021 at 16:25
--- NOTE | 2021-12-02 15:41 | DI.RAD.S_ITS ---
PROCEDURE: XR CHEST 1V INDICATIONS: Trauma, fall TECHNIQUE: One view of the chest was acquired. COMPARISON: [facility], CR, XR CHEST 1V, 06/25/2020, 14:54. FINDINGS: Surgical changes and devices: None. Lungs and pleura: Lungs are clear. No pleural effusions or pneumothorax. Mediastinum: Mediastinal contours appear normal. Heart size is normal. Bones and chest wall: No suspicious bony lesions. Overlying soft tissues appear unremarkable. IMPRESSION: No acute cardiopulmonary process demonstrated radiographically. Dictated by: Franki Hernandez M.D. on 12/02/2021 at 15:50 Approved by: Franki Hernandez M.D. on 12/02/2021 at 15:51
[2021-12-02] MEDS: SODIUM CHLORIDE 0.9% 1,000 ML 150 ML IV (16:11)
[2021-12-02 16:32] LABS: Add Manual Diff / Slide Review NO; Basophils Absolute Auto 100 /uL (0-100); Basophils Percent Auto 0.5 % (0-2); Eosinophils Absolute Auto 100 /uL (0-450); Eosinophils Percent Auto 0.6 % (2-4); Hematocrit 34.9 % (41-53); Hemoglobin 11.8 g/dL (13.5-17.5); Lymphocytes Absolute Auto 500 /uL (1100-4500); Lymphocytes Percent Auto 4.8 % (25-40); Mean Corpuscular HGB Conc 33.8 % (30-36); Mean Corpuscular Hemoglobin 29.6 PG (26-34); Mean Corpuscular Volume 87.6 fL (80-100); Monocytes Absolute Auto 600 /uL (0-900); Monocytes Percent Auto 5.6 % (3-14); Neutrophils Absolute Auto 10100 /uL (1500-7000); Neutrophils Percent Auto 88.5 % (50-75); Platelet Count 194 X10^3/uL (150-400); Red Blood Cell Count 3.99 X10^6/uL (4.5-5.9); Red Cell Distribution Width 14.1 % (11.6-14.8); White Blood Cell Count 11.5 X10^3/uL (4.5-11.0)
[2021-12-02 16:55] LABS: Lactate (Lactic Acid) 2.9 mmol/L (0.7-2.1)
[2021-12-02 16:56] LABS: Alanine Aminotransferase 31 IU/L (<50); Albumin 3.6 g/dL (3.5-5.0); Albumin Globulin Ratio 1.1 (1.0-2.8); Alkaline Phosphatase 106 U/L (38-126); Aspartate Aminotransferase 44 IU/L (17-59); BUN Creatinine Ratio 18.7 (6-22); Blood Urea Nitrogen 37 mg/dL (9-20); Calcium 8.5 mg/dL (8.4-10.2); Carbon Dioxide 24 mmol/L (22-32); Chloride 106 mmol/L (98-107); Creatine Kinase 57 U/L (55-170); Estimated Glomerular Filt Rate 32 mL/min (>60); Globulin 3.3 g/dL (1.7-4.1); Glucose 292 mg/dL (80-110); Lipase 85 U/L (23-300); Sodium 138 mmol/L (137-145); Total Protein 6.9 g/dL (6.3-8.2)
[2021-12-02 17:09] LABS: HEMOLYSIS < 15 (0-50); Troponin I 0.012 ng/mL (0.01-0.034)
[2021-12-02 17:26] LABS: COVID19 -Nasal RAPID Negative (Negative)
--- NOTE | 2021-12-02 17:52 | ED_ITS ---
HPI - Fall General Chief Complaint: Fall Stated Complaint: GLF-hit head Time Seen by Provider: 12/02/21 15:40 Source: patient and EMS Mode of arrival: EMS History of Present Illness HPI Narrative: 86M nonsmoker with history of AFib on anticoagulation, kidney stones, prostate cancer, pancreatitis, CHF presents by EMS for evaluation of a ground level fall with head injury. He states that he had went to the bathroom and was feeling ill, he had a large watery stool and upon standing fell down, he does not have full recall and may have had a brief loss of consciousness. He did strike his head but denies any other injury. He is had 1 episode of vomiting. He denies any chest pain or shortness of breath. He denies any fever or chills. He denies any recent medication changes, dietary change, travel or bad food. He is not been on antibiotics recently. He is activated as a modified trauma given fall, head injury and use of anticoagulation Related Data Home Medications Medication Instructions Recorded Confirmed levothyroxine 50 mcg tablet 50 mcg PO MOTUWETHFRSA 09/16/17 10/07/21 docusate sodium 100 mg PO DAILY 01/06/20 10/07/21 furosemide 80 mg tablet 80 mg PO DAILY 01/06/20 10/07/21 mecobalamin (vitamin B12) 1,000 1,000 mcg PO DAILY 05/26/21 10/07/21 mcg chewable tablet bprbbxod-kqakryjzw-orxeygiw 3.5 drp ophthalmic (eye) 05/26/21 10/07/21 mg/mL-10,000 unit/mL-0.1% eye drops (Maxitrol) novolog flexpen SUBCUT 05/26/21 10/07/21 rosuvastatin 5 mg tablet 5 mg PO DAILY 05/26/21 10/07/21 sennosides 8.6 mg tablet (senna) 8.6 mg PO DAILY 05/26/21 10/07/21 triamcinolone acetonide 0.1 % 1 applic topical DAILY 05/26/21 10/07/21 topical cream insulin glargine 100 unit/mL (3 36 unit SUBCUT DAILY 09/02/21 10/07/21 mL) subcutaneous pen (Lantus Solostar U-100 Insulin) warfarin 5 mg tablet 2.5 mg PO 4XW 09/02/21 10/07/21 warfarin 5 mg tablet (Coumadin) 5 mg PO 3XW 09/02/21 10/07/21 Previous Rx's Medication Instructions Recorded digoxin 125 mcg (0.125 mg) tablet 0.125 mg PO DAILY #30 tabs 10/01/19 metoprolol tartrate 25 mg tablet 12.5 mg PO BID #30 tabs 10/01/19 midodrine 5 mg tablet 5 mg PO 0600,1200,1800 #15 tabs 10/01/19 mupirocin 2 % topical ointment 1 applic topical TID #15 grams 01/08/21 bicalutamide 50 mg tablet (Casodex) 50 mg PO DAILY #30 tabs 06/17/21 diclofenac sodium 1 % topical gel 2 g topical QID #100 grams 07/17/21 (Voltaren Arthritis Pain) hydrocodone 5 mg-acetaminophen 325 1 tab PO BID PRN pain #14 tabs 07/17/21 mg tablet lidocaine 5 % topical patch 1 patch topical DAILY PRN pain #15 07/17/21 ea methocarbamol 500 mg tablet 500 mg PO BEDTIME PRN muscle spasm 07/17/21 #14 tabs Allergies Allergy/AdvReac Type Severity Reaction Status Date / Time Penicillins Allergy Unknown Verified 10/07/21 13:45 Review of Systems Review of Systems Narrative: GENERAL: See HPI HEENT: Denies sinus pain, ear pain, sore throat, difficulty swallowing, dizziness. RESPIRATORY: Denies dyspnea, cough, wheezing, hemoptysis, sputum. CARDIOVASCULAR: Denies chest pain, palpitations, orthopnea, edema, GASTROINTESTINAL: See HPI : Denies dysuria, frequency, incontinence, hematuria, urinary retention. MUSCULOSKELETAL: denies weakness, joint pain, or bony pain SKIN: Denies rash, skin lesions, or other NEUROLOGIC: See HPI PSYCHIATRIC: No concerning psychosocial issues. 12 point review of systems is negative except for those stated above Patient History Medical History (Updated 12/03/21 @ 01:42 by Adam Majano DO) Arthritis Cancer of left ear Chronic atrial fibrillation with RVR Community acquired pneumonia COVID-19 Diabetes E coli infection Hernia of abdominal cavity High blood pressure History of back pain Hypothyroidism Inguinal hernia bilateral, non-recurrent Kidney stones Male circumcision Melanoma Prostate cancer Right eye injury Warfarin anticoagulation Surgical History H/O colectomy H/O vasectomy History of throat surgery History of transurethral resection of prostate Hx of cholecystectomy Hx of circumcision Hx of prostate biopsy Status post bilateral hernia repair Family History Mother Coronary artery disease Father Diabetes mellitus Hearing impairment Spouse CVA (cerebrovascular accident due to intracerebral hemorrhage) Kidney stones Social History marital status: number of children: 4 household members: spouse Smoking Status: Never smoker alcohol intake: former Type(s) of exercise: none Smoking Status: Never smoker alcohol intake frequency: 0-2 drinks per day Substance Use Type: does not use Exam Narrative Exam Narrative: GENERAL: [86] year old patient appears stated age. GCS 14 (confusion). He does have some confusion that is a departure from his baseline HEAD: Mild hematoma left forehead, no evidence of depressed skull fracture, no laceration warranting repair. EYES: Pupils equal round and reactive. No hyphema Extraocular motions intact. No scleral icterus. No injection or drainage. ENT: Nose without bleeding, purulent drainage. No nasal septal hematoma Throat without erythema, tonsillar hypertrophy or exudate. Airway patent. NECK: Trachea midline. Non tender CARDIOVASCULAR: Irregularly irregular without murmurs, gallops, or rubs. RESPIRATORY: Clear to auscultation. Breath sounds equal bilaterally. No wheezes, rales, or rhonchi. GASTROINTESTINAL: Abdomen soft, non-tender, nondistended. EXTREMITIES: No edema or joint tenderness. BACK: Nontender without deformity or crepitance. No flank tenderness. NEURO: AOx3. SKIN: No rash or erythema of visible areas Initial Vital Signs Initial Vital Signs: Vital Signs Temperature 97.8 F 12/02/21 15:25 Pulse Rate 87 12/02/21 15:25 Respiratory Rate 20 12/02/21 15:25 Blood Pressure 127/68 12/02/21 15:25 Pulse Oximetry 93 12/02/21 15:25 Oxygen Delivery Method 12/02/21 15:25 Course Orders Ordered: ED Orders 12/02/21 17:45 Blood Culture Stat 12/02/21 19:50 BMP [Basic Metabolic Panel] Stat Procalcitonin Stat 12/02/21 20:30 Urine Culture Stat Urine Microscopic Stat Acetaminophen (Acetaminophen 325 Mg Tablet) 650 mg PO Q6HR PRN PRN Reason: Fever/Mild Pain (1-3) Hydrocodone Bitart/Acetaminophen (Hydrocodone/Acet 5/325 Tablet) 1 tab PO BID PRN PRN Reason: pain Atorvastatin Calcium (Atorvastatin 20 Mg Tablet) 10 mg PO BEDTIME [facility] Bicalutamide (Bicalutamide 50 Mg Tablet) 50 mg PO DAILY [facility] Dextrose (Dextrose 50 % In Water 25 Gm/50 Ml Syringe) 25 gm IV PRN PRN PRN Reason: Hypoglycemia Digoxin (Digoxin 0.125 Mg Tablet) 0.125 mg PO DAILY [facility] Ceftriaxone Sodium 1,000 mg/ (Sodium Chloride) 100 mls @ 200 mls/hr IV Q24H [facility] Influenza Virus Vaccine (Influenza Hd Vaccine 0.7 Ml Syringe) 0.7 ml IM .ONCE ONE Stop: 12/03/21 09:01 Insulin Glargine (Insulin Glargine 100 Unit/Ml 3ml Pen) 36 unit SUBCUT DAILY [facility] Insulin Human Lispro (Insulin Lispro 100 Unit/Ml 3ml Vial) 0 unit SUBCUT ACHS GARRETT; Protocol Levothyroxine Sodium (Levothyroxine 50 Mcg Tablet) 50 mcg PO MOTUWETHFRSA [facility] Metoprolol Tartrate (Metoprolol Ir 25 Mg Tablet) 12.5 mg PO BID [facility] Ondansetron HCl (Ondansetron 4 Mg/2 Ml Inj) 4 mg IV Q6HR PRN PRN Reason: Nausea And Vomiting Tramadol HCl (Tramadol 50 Mg Tablet) 50 mg PO Q4H PRN PRN Reason: Pain, Moderate (4-6) Discontinued Medications Sodium Chloride (Normal Saline 0.9%) 1,000 mls @ 150 mls/hr IV CONT GARRETT Last Infusion: 12/02/21 19:56 Dose: 0 mls/hr Documented By: Admin: 12/02/21 16:11 Dose: 150 mls/hr Documented By: HEATHER Sodium Chloride (Normal Saline 0.9%) 1,000 mls @ 1,000 mls/hr IV BOLUS ONE Stop: 12/02/21 19:01 Last Infusion: 12/02/21 23:45 Dose: 0 mls/hr Documented By: Admin: 12/02/21 20:56 Dose: 1,000 mls/hr Documented By: ELISSA Ceftriaxone Sodium 1,000 mg/ (Sodium Chloride) 100 mls @ 200 mls/hr IV NOW ONE Stop: 12/02/21 23:20 Last Admin: 12/02/21 23:41 Dose: 200 mls/hr Documented By: NGA Insulin Human Lispro (Insulin Lispro 100 Unit/Ml 3ml Vial) 0 unit SUBCUT ACHS [facility]; Protocol Levothyroxine Sodium (Levothyroxine 50 Mcg Tablet) 50 mcg PO MOTUWETHFRSA [facility] Last Admin: 12/03/21 01:39 Dose: Not Given Documented By: ABNER Reevaluation(s) Reevaluation #1: Patient unable to get out of bed let alone complete an ambulation trial, this is a departure from his normal likely a consequence of his underlying infection. Additionally, he is altered and confused from his baseline, also likely a consequence of underlying infection Vital Signs Vital signs: Vital Signs - 8 hr 12/02/21 18:00 12/02/21 18:00 12/02/21 18:30 Pulse Rate 96 H Respiratory Rate 19 Blood Pressure 130/58 L 115/64 Pulse Oximetry 98 12/02/21 18:30 12/02/21 19:00 12/02/21 19:00 Pulse Rate 95 H 92 H Respiratory Rate Blood Pressure 109/67 Pulse Oximetry 99 12/02/21 19:30 12/02/21 19:31 12/02/21 19:31 Pulse Rate 97 H 91 H Respiratory Rate 20 Blood Pressure 148/88 H Pulse Oximetry 100 98 12/02/21 20:00 12/02/21 20:00 12/02/21 20:30 Pulse Rate 117 H Respiratory Rate 20 Blood Pressure 134/67 130/91 H Pulse Oximetry 12/02/21 20:30 12/02/21 21:00 12/02/21 21:00 Pulse Rate 110 H 99 H Respiratory Rate 20 Blood Pressure 113/78 Pulse Oximetry 97 12/02/21 21:30 12/02/21 21:30 12/02/21 22:00 Pulse Rate 108 H 100 H Respiratory Rate 22 22 Blood Pressure 127/63 Pulse Oximetry 97 98 12/02/21 22:01 12/02/21 22:01 12/02/21 22:30 Pulse Rate 103 H 91 H Respiratory Rate 22 22 Blood Pressure 154/69 H Pulse Oximetry 98 99 12/02/21 23:05 12/02/21 23:05 Pulse Rate 106 H Respiratory Rate 22 Blood Pressure 117/59 L Pulse Oximetry 98 MDM - Fall Lab Data Result diagrams: 12/02/21 16:05 12/02/21 19:50 Labs: Lab Results 12/02/21 12/02/21 12/02/21 Range/Units 15:35 16:05 16:05 WBC 11.5 H (4.5-11.0) X10^3/uL RBC 3.99 L (4.5-5.9) X10^6/uL Hgb 11.8 L (13.5-17.5) g/dL Hct 34.9 L (41-53) % MCV 87.6 (80-100) fL MCH 29.6 (26-34) PG MCHC 33.8 (30-36) % RDW 14.1 (11.6-14.8) % Plt Count 194 (150-400) X10^3/uL Neut % (Auto) 88.5 H (50-75) % Lymph % (Auto) 4.8 L (25-40) % Keith % (Auto) 5.6 (3-14) % Eos % (Auto) 0.6 L (2-4) % Baso % (Auto) 0.5 (0-2) % Neut # (Auto) 66486 H (4404-8989) /uL Lymph # (Auto) 500 L (4576-9289) /uL Keith # (Auto) 600 (0-900) /uL Eos # (Auto) 100 (0-450) /uL Baso # (Auto) 100 (0-100) /uL Sodium 138 (137-145) mmol/L Potassium 5.0 (3.4-5.1) mmol/L Chloride 106 (98-107) mmol/L Carbon Dioxide 24 (22-32) mmol/L BUN 37 H (9-20) mg/dL Creatinine 1.98 H (0.66-1.25) mg/dL Estimated GFR 32 L (>60) mL/min BUN/Creatinine Ratio 18.7 (6-22) Glucose 292 H (80-110) mg/dL Lactate (0.7-2.1) mmol/L Calcium 8.5 (8.4-10.2) mg/dL Total Bilirubin 1.0 (0.2-1.3) mg/dL AST 44 (17-59) IU/L ALT 31 (<50) IU/L Alkaline Phosphatase 106 (38-126) U/L Total Creatine Kinase 57 (55-170) U/L CK-MB (CK-2) TNP CK-MB (CK-2) Rel Index TNP Troponin I 0.012 (0.01-0.034) ng/mL Total Protein 6.9 (6.3-8.2) g/dL Albumin 3.6 (3.5-5.0) g/dL Globulin 3.3 (1.7-4.1) g/dL Albumin/Globulin Ratio 1.1 (1.0-2.8) Lipase 85 (23-300) U/L Procalcitonin (<0.5) ng/mL Urine RBC (0-5/HPF) Urine WBC (0-5/HPF) Ur Squamous Epith Cells (0-5/HPF) Urine Bacteria (None) Ur Culture Indicated? SARS-CoV-2 (PCR) Negative (Negative) 12/02/21 12/02/21 12/02/21 Range/Units 16:05 19:00 19:50 WBC (4.5-11.0) X10^3/uL RBC (4.5-5.9) X10^6/uL Hgb (13.5-17.5) g/dL Hct (41-53) % MCV (80-100) fL MCH (26-34) PG MCHC (30-36) % RDW (11.6-14.8) % Plt Count (150-400) X10^3/uL Neut % (Auto) (50-75) % Lymph % (Auto) (25-40) % Keith % (Auto) (3-14) % Eos % (Auto) (2-4) % Baso % (Auto) (0-2) % Neut # (Auto) (7303-4649) /uL Lymph # (Auto) (2965-1646) /uL Keith # (Auto) (0-900) /uL Eos # (Auto) (0-450) /uL Baso # (Auto) (0-100) /uL Sodium 138 (137-145) mmol/L Potassium 4.1 (3.4-5.1) mmol/L Chloride 105 (98-107) mmol/L Carbon Dioxide 22 (22-32) mmol/L BUN 35 H (9-20) mg/dL Creatinine 1.81 H (0.66-1.25) mg/dL Estimated GFR 36 L (>60) mL/min BUN/Creatinine Ratio 19.3 (6-22) Glucose 260 H (80-110) mg/dL Lactate 2.9 H 2.0 (0.7-2.1) mmol/L Calcium 8.1 L (8.4-10.2) mg/dL Total Bilirubin (0.2-1.3) mg/dL AST (17-59) IU/L ALT (<50) IU/L Alkaline Phosphatase (38-126) U/L Total Creatine Kinase (55-170) U/L CK-MB (CK-2) CK-MB (CK-2) Rel Index Troponin I (0.01-0.034) ng/mL Total Protein (6.3-8.2) g/dL Albumin (3.5-5.0) g/dL Globulin (1.7-4.1) g/dL Albumin/Globulin Ratio (1.0-2.8) Lipase (23-300) U/L Procalcitonin (<0.5) ng/mL Urine RBC (0-5/HPF) Urine WBC (0-5/HPF) Ur Squamous Epith Cells (0-5/HPF) Urine Bacteria (None) Ur Culture Indicated? SARS-CoV-2 (PCR) (Negative) 12/02/21 12/02/21 Range/Units 19:50 20:30 WBC (4.5-11.0) X10^3/uL RBC (4.5-5.9) X10^6/uL Hgb (13.5-17.5) g/dL Hct (41-53) % MCV (80-100) fL MCH (26-34) PG MCHC (30-36) % RDW (11.6-14.8) % Plt Count (150-400) X10^3/uL Neut % (Auto) (50-75) % Lymph % (Auto) (25-40) % Keith % (Auto) (3-14) % Eos % (Auto) (2-4) % Baso % (Auto) (0-2) % Neut # (Auto) (0737-5362) /uL Lymph # (Auto) (9690-1524) /uL Keith # (Auto) (0-900) /uL Eos # (Auto) (0-450) /uL Baso # (Auto) (0-100) /uL Sodium (137-145) mmol/L Potassium (3.4-5.1) mmol/L Chloride (98-107) mmol/L Carbon Dioxide (22-32) mmol/L BUN (9-20) mg/dL Creatinine (0.66-1.25) mg/dL Estimated GFR (>60) mL/min BUN/Creatinine Ratio (6-22) Glucose (80-110) mg/dL Lactate (0.7-2.1) mmol/L Calcium (8.4-10.2) mg/dL Total Bilirubin (0.2-1.3) mg/dL AST (17-59) IU/L ALT (<50) IU/L Alkaline Phosphatase (38-126) U/L Total Creatine Kinase (55-170) U/L CK-MB (CK-2) CK-MB (CK-2) Rel Index Troponin I (0.01-0.034) ng/mL Total Protein (6.3-8.2) g/dL Albumin (3.5-5.0) g/dL Globulin (1.7-4.1) g/dL Albumin/Globulin Ratio (1.0-2.8) Lipase (23-300) U/L Procalcitonin 0.56 H (<0.5) ng/mL Urine RBC 0-1/hpf (0-5/HPF) Urine WBC 5-10/hpf H (0-5/HPF) Ur Squamous Epith Cells None seen (0-5/HPF) Urine Bacteria Occasional (0-1) (None) Ur Culture Indicated? Specimen cultured SARS-CoV-2 (PCR) (Negative) Point of Care Testing Glucose POC 260 Urine Dip Bedside Urine Glucose 250 mg/dl Bedside Urine Bilirubin - Negative Bedside Urine Ketone - Negative Urine Specific [place] 1.015 Bedside Urine Occult Blood +/- Bedside Urine pH 5.5 Bedside Urine Protein +/- 15 Bedside Urine Urobilinogen - Negative Bedside Urine Nitrite - Negative Bedside Urine Leukocytes + [address] scan - head: Radiologist's Impression: [address] [address] [address] Scan Report Signed Patient: Marty Heard MR#: [id number] : 1935 Acct:[id number] Age/Sex: 86 / M Date of Service: 12/02/21 Loc: ED Accession Number: [id number] ?? Procedure: CT head/brain wo con Ordering Provider: Cristel Howe D.O. PROCEDURE:? CT HEAD/BRAIN WO CON ? INDICATIONS:? fall ? TECHNIQUE:? Noncontrast 4.5 mm thick angled axial sections acquired from the foramen magnum to the vertex, with coronal and sagittal reformats.? For radiation dose reduction, the following was used:? automated exposure control, adjustment of mA and/or kV according to patient size.? ? COMPARISON:? None. ? FINDINGS:? Severe global cerebral volume loss and chronic microvascular ischemic change.? 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 No acute intracranial hemorrhage.? No mass effect or midline shift.? No acute orbital abnormality.? Predominantly clear paranasal sinuses and mastoid air cells. ? IMPRESSION:? No acute intracranial finding ? ? Dictated by: Franki Hernandez M.D. on 12/02/2021 at 16:24 ? ? Approved by: Franki Hernandez M.D. on 12/02/2021 at 16:25 ? Discharge Plan Departure Patient Disposition: Admitted As Inpatient Clinical Impression: Acute UTI, Acute metabolic encephalopathy, Acute kidney injury, Acute weakness Admit Date/Time: 12/02/21 23:26 Admit Provider: Karolyn Mejía
[2021-12-02 18:24] LABS: Reflexed Lactate in 2 Hours Y
[2021-12-02 20:29] LABS: BUN Creatinine Ratio 19.3 (6-22); Blood Urea Nitrogen 35 mg/dL (9-20); Calcium 8.1 mg/dL (8.4-10.2); Carbon Dioxide 22 mmol/L (22-32); Chloride 105 mmol/L (98-107); Estimated Glomerular Filt Rate 36 mL/min (>60); Glucose 260 mg/dL (80-110); HEMOLYSIS < 15 (0-50); Potassium 4.1 mmol/L (3.4-5.1); Sodium 138 mmol/L (137-145)
[2021-12-02] MEDS: SODIUM CHLORIDE 0.9% 1,000 ML 1000 ML IV (20:56)
[2021-12-02 21:10] LABS: Bacteria Urine Occasional (0-1); Culture Indicated Urine Specimen Cultured; RBC Urine 0-1/HPF (0-5/HPF); Squamous Epithelial Cell Urine None Seen (0-5/HPF); WBC Urine 5-10/HPF (0-5/HPF)
--- NOTE | 2021-12-02 22:05 | PC.NURSE ---
Patient was unable to get up to the side of the bed. Failed ambulation trial
[2021-12-02] MEDS: cefTRIAXone 1,000 MG in SODIUM CHLORIDE 0.9% 100 ML 200 MG IV (23:41)
[2021-12-02 23:51] LABS: Procalcitonin 0.56 ng/mL (<0.5)
[2021-12-03] VITALS (12 sets, daily range): BP systolic 81–119; BP diastolic 53–74; PULSE 71–95; RESP 16–20; TEMP 36.1–37.3; O2SAT 97–100; BMI 32.4
--- NOTE | 2021-12-03 00:20 | PC.NURSE ---
Pt discharged upstairs. Ceftriaxone running at 200 mls/hr and NS at 150 mls/hr per provider order.
--- NOTE | 2021-12-03 01:08 | P.HP_ITS ---
History of Present Illness History of Present Illness Date Patient Seen: 12/03/21 Time Patient Seen: 01:09 Chief complaint: GLF-hit head Narrative: Marty Heard is an 86 male nonsmoker with history of AFib anticoagulated on warfarin, kidney stones, prostate cancer in current treatment, pancreatitis, CHF presents by EMS for evaluation of a ground level fall with head injury.? He states that he had went to the bathroom and was feeling ill, he had a large watery stool and upon standing fell down, he does not have full recall and may have had a brief loss of consciousness.? He did strike his head but denies any other injury.? He is had 1 episode of vomiting.? He denies any chest pain or shortness of breath.? He denies any fever or chills.? He denies abdominal pain, dysuria or constipation. He states that he is normally continent of urine and stool. He denies any recent medication changes, dietary change, travel or bad food.? He has not been on antibiotics recently.? 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 He has a mildly elevated white count 11.5 he is mildly anemic with a hemoglobin and hematocrit of 11.834.9 respectively, he does have a left shift, his INR is 2.8 within therapeutic limits, his creatinine is 1.81 which is close to his baseline, his glucose is 260 with an A1c of 9.4, calcium was 8.1, and procalcitonin mildly positive at 0.56. UA had bacteria and urine WBC and the specimen was cultured. COVID-19 PCR is negative. Patient's last echo was February 2021 indicating an EF of 55-60% with mild to mo derate atrial dilation bilaterally. FH: Mother at age 40 of a myocardial infarction. Father age 76 due to surgical complications including liver laceration. Son has undergone a 5 way coronary bypass. Patient History Medical History (Updated 12/03/21 @ 01:42 by Adam Majano DO) Arthritis Cancer of left ear Chronic atrial fibrillation with RVR Community acquired pneumonia COVID-19 Diabetes E coli infection Hernia of abdominal cavity High blood pressure History of back pain Hypothyroidism Inguinal hernia bilateral, non-recurrent Kidney stones Male circumcision Melanoma Prostate cancer Right eye injury Warfarin anticoagulation Surgical History H/O colectomy H/O vasectomy History of throat surgery History of transurethral resection of prostate Hx of cholecystectomy Hx of circumcision Hx of prostate biopsy Status post bilateral hernia repair Family & Social History Family History Mother Coronary artery disease Father Diabetes mellitus Hearing impairment Spouse CVA (cerebrovascular accident due to intracerebral hemorrhage) Kidney stones Social History: household members spouse Prior Living Arrangements House Safety & Behavioral: Feels Safe in Current Yes Environment Been Physically Hurt or No Threatened By a Person Tobacco & Substance use: Smoking Status Never smoker alcohol intake former alcohol intake frequency 0-2 drinks per day Substance Use Type does not use Meds Home Medications and Allergies Home Medications Medication Instructions Recorded Confirmed Type levothyroxine 50 mcg tablet 50 mcg PO MOTUWETHFRSA 09/16/17 10/07/21 History digoxin 125 mcg (0.125 mg) tablet 0.125 mg PO DAILY #30 tabs 10/01/19 10/07/21 Rx metoprolol tartrate 25 mg tablet 12.5 mg PO BID #30 tabs 10/01/19 10/07/21 Rx midodrine 5 mg tablet 5 mg PO 0600,1200,1800 #15 tabs 10/01/19 10/07/21 Rx docusate sodium 100 mg PO DAILY 01/06/20 10/07/21 History furosemide 80 mg tablet 80 mg PO DAILY 01/06/20 10/07/21 History mupirocin 2 % topical ointment 1 applic topical TID #15 grams 01/08/21 10/07/21 Rx mecobalamin (vitamin B12) 1,000 1,000 mcg PO DAILY 05/26/21 10/07/21 History mcg chewable tablet [id number] 3.5 drp ophthalmic (eye) 05/26/21 10/07/21 History mg/mL-10,000 unit/mL-0.1% eye drops (Maxitrol) novolog flexpen SUBCUT 05/26/21 10/07/21 History rosuvastatin 5 mg tablet 5 mg PO DAILY 05/26/21 10/07/21 History sennosides 8.6 mg tablet (senna) 8.6 mg PO DAILY 05/26/21 10/07/21 History triamcinolone acetonide 0.1 % 1 applic topical DAILY 05/26/21 10/07/21 History topical cream bicalutamide 50 mg tablet (Casodex) 50 mg PO DAILY #30 tabs 06/17/21 10/07/21 Rx diclofenac sodium 1 % topical gel 2 g topical QID #100 grams 07/17/21 10/07/21 Rx (Voltaren Arthritis Pain) hydrocodone 5 mg-acetaminophen 325 1 tab PO BID PRN pain #14 tabs 07/17/21 Rx mg tablet lidocaine 5 % topical patch 1 patch topical DAILY PRN pain #15 07/17/21 10/07/21 Rx ea methocarbamol 500 mg tablet 500 mg PO BEDTIME PRN muscle spasm 07/17/21 10/07/21 Rx #14 tabs insulin glargine 100 unit/mL (3 36 unit SUBCUT DAILY 09/02/21 10/07/21 History mL) subcutaneous pen (Lantus Solostar U-100 Insulin) warfarin 5 mg tablet 2.5 mg PO 4XW 09/02/21 10/07/21 History warfarin 5 mg tablet (Coumadin) 5 mg PO 3XW 09/02/21 10/07/21 History Allergies Allergy/AdvReac Type Severity Reaction Status Date / Time Penicillins Allergy Unknown Verified 10/07/21 13:45 Review of Systems Review of Systems ROS: Yes All systems reviewed with the patient and are negative except as otherwise documented Exam Vital Signs (past 8 hours): - 12/02/21 17:30 12/02/21 17:30 12/02/21 18:00 Temperature Pulse Rate 96 H Respiratory Rate 21 Blood Pressure 116/58 L 130/58 L Pulse Oximetry 97 Oxygen Flow Rate 12/02/21 18:00 12/02/21 18:30 12/02/21 18:30 Temperature Pulse Rate 96 H 95 H Respiratory Rate 19 Blood Pressure 115/64 Pulse Oximetry 98 99 Oxygen Flow Rate 12/02/21 19:00 12/02/21 19:00 12/02/21 19:30 Temperature Pulse Rate 92 H 97 H Respiratory Rate Blood Pressure 109/67 Pulse Oximetry 100 Oxygen Flow Rate 12/02/21 19:31 12/02/21 19:31 12/02/21 20:00 Temperature Pulse Rate 91 H Respiratory Rate 20 Blood Pressure 148/88 H 134/67 Pulse Oximetry 98 Oxygen Flow Rate 12/02/21 20:00 12/02/21 20:30 12/02/21 20:30 Temperature Pulse Rate 117 H 110 H Respiratory Rate 20 Blood Pressure 130/91 H Pulse Oximetry Oxygen Flow Rate 12/02/21 21:00 12/02/21 21:00 12/02/21 21:30 Temperature Pulse Rate 99 H Respiratory Rate 20 Blood Pressure 113/78 127/63 Pulse Oximetry 97 Oxygen Flow Rate 12/02/21 21:30 12/02/21 22:00 12/02/21 22:01 Temperature Pulse Rate 108 H 100 H Respiratory Rate 22 22 Blood Pressure 154/69 H Pulse Oximetry 97 98 Oxygen Flow Rate 12/02/21 22:01 12/02/21 22:30 12/02/21 23:05 Temperature Pulse Rate 103 H 91 H Respiratory Rate 22 22 Blood Pressure 117/59 L Pulse Oximetry 98 99 Oxygen Flow Rate 12/02/21 23:05 12/02/21 23:30 12/02/21 23:30 Temperature Pulse Rate 106 H 94 H Respiratory Rate 22 20 Blood Pressure 121/57 L Pulse Oximetry 98 96 Oxygen Flow Rate 12/03/21 00:00 12/03/21 00:00 12/03/21 00:50 Temperature 99.1 F Pulse Rate 88 93 H Respiratory Rate 20 19 Blood Pressure 103/56 L 119/59 L Pulse Oximetry 98 Oxygen Flow Rate 0 Oxygen Delivery Method Room Air Oxygen Flow Rate 0 Narrative Exam Narrative: Gen: Alert, oriented, obese 86 y.o. male, lethargic but talkative HEENT: normocephalic, atraumatic, conjunctiva clear, sclera non-icteric, oral mucosa pink and moist Neck: supple, full ROM, no JVD, trachea is midline Resp: Lungs CTA, non-labored breathing CV: irregularly irregular, no murmur or rubs Abd: soft, non-tender, normoactive BTs Skin: no lesions or rashes, dry and intact Neuro: Alert and oriented X 4 w/no focal deficits. Speech clear and coherent. Extremities: moves all 4 extremities, is ambulatory, negative Celina?s sign Psyche: normal mood and affect. Objective Labs Result Diagrams: 12/02/21 16:05 12/02/21 19:50 Labs: Laboratory Results - last 24 hr 12/02/21 12/02/21 12/02/21 15:35 16:05 16:05 WBC 11.5 H RBC 3.99 L Hgb 11.8 L Hct 34.9 L MCV 87.6 MCH 29.6 MCHC 33.8 RDW 14.1 Plt Count 194 Neut % (Auto) 88.5 H Lymph % (Auto) 4.8 L [place] % (Auto) 5.6 Eos % (Auto) 0.6 L Baso % (Auto) 0.5 Neut # (Auto) 64385 H Lymph # (Auto) 500 L [place] # (Auto) 600 Eos # (Auto) 100 Baso # (Auto) 100 Sodium 138 Potassium 5.0 Chloride 106 Carbon Dioxide 24 BUN 37 H Creatinine 1.98 H Estimated GFR 32 L BUN/Creatinine Ratio 18.7 Glucose 292 H Lactate Calcium 8.5 Total Bilirubin 1.0 AST 44 ALT 31 Alkaline Phosphatase 106 Total Creatine Kinase 57 CK-MB (CK-2) TNP CK-MB (CK-2) Rel Index TNP Troponin I 0.012 Total Protein 6.9 Albumin 3.6 Globulin 3.3 Albumin/Globulin Ratio 1.1 Lipase 85 Procalcitonin Urine RBC Urine WBC Ur Squamous Epith Cells Urine Bacteria Ur Culture Indicated? SARS-CoV-2 (PCR) Negative 12/02/21 12/02/21 12/02/21 16:05 19:00 19:50 WBC RBC Hgb Hct MCV MCH MCHC RDW Plt Count Neut % (Auto) Lymph % (Auto) [place] % (Auto) Eos % (Auto) Baso % (Auto) Neut # (Auto) Lymph # (Auto) [place] # (Auto) Eos # (Auto) Baso # (Auto) Sodium 138 Potassium 4.1 Chloride 105 Carbon Dioxide 22 BUN 35 H Creatinine 1.81 H Estimated GFR 36 L BUN/Creatinine Ratio 19.3 Glucose 260 H Lactate 2.9 H 2.0 Calcium 8.1 L Total Bilirubin AST ALT Alkaline Phosphatase Total Creatine Kinase CK-MB (CK-2) CK-MB (CK-2) Rel Index Troponin I Total Protein Albumin Globulin Albumin/Globulin Ratio Lipase Procalcitonin Urine RBC Urine WBC Ur Squamous Epith Cells Urine Bacteria Ur Culture Indicated? SARS-CoV-2 (PCR) 12/02/21 12/02/21 19:50 20:30 WBC RBC Hgb Hct MCV MCH MCHC RDW Plt Count Neut % (Auto) Lymph % (Auto) [place] % (Auto) Eos % (Auto) Baso % (Auto) Neut # (Auto) Lymph # (Auto) [place] # (Auto) Eos # (Auto) Baso # (Auto) Sodium Potassium Chloride Carbon Dioxide BUN Creatinine Estimated GFR BUN/Creatinine Ratio Glucose Lactate Calcium Total Bilirubin AST ALT Alkaline Phosphatase Total Creatine Kinase CK-MB (CK-2) CK-MB (CK-2) Rel Index Troponin I Total Protein Albumin Globulin Albumin/Globulin Ratio Lipase Procalcitonin 0.56 H Urine RBC 0-1/hpf Urine WBC 5-10/hpf H Ur Squamous Epith Cells None seen Urine Bacteria Occasional (0-1) Ur Culture Indicated? Specimen cultured SARS-CoV-2 (PCR) Assessment & Plan Assessment & Plan narrative: Marty Heard is admitted for sepsis in the setting of a urinary tract infection and poorly controlled diabetes. Acute on chronic kidney injury secondary to urinary tract infection, present on admission * He was initiated on IV ceftriaxone in the emergency department this will be continued * IV normal saline at 100 mL per hour Atrial fibrillation, anticoagulated on warfarin * His INR is therapeutic at 2.8, continue daily monitoring * Continue home dose of warfarin which he takes alternating doses 5 mg Wednesday and Wednesday and 2.5 mg Wednesday and Wednesday. * Rate control with metoprolol 12.5 mg p.o. b.i.d., and digoxin 0.125 p.o. daily, these will need to be confirmed in the morning Poorly controlled diabetes with an A1c of 9.4, present on admission * I have increased his Lantus to 36 units b.i.d. with medium dose correctional insulin * Carb controlled diet with ACHS glucose checks Prostate cancer, currently being treated * Continue home dose of bicalutamide 50 mg p.o. daily * If we do not have patient may take own Hypothyroidism, chronic * Continue home dose of levothyroxine 50 mcg daily Dyslipidemia, chronic * Continue home dose of rosuvastatin 5 mg p.o. daily Acute weakness, present on admission * PT evaluation in the morning VTE Prophylaxis: Wells risk score 0 X Bilateral SCDs Patient is currently anticoagulated on warfarin. Patient is admitted to the inpatient service due to the severity of disease, risks of further disease progression and this stay is expected to exceed 2 midnights. FEN: IV fluids: Saline lock, diet: Carb controlled, labs: CBC, C/BMP, liver enzymes, Mag, PT/INR Consultants none Dispo: Unknown at this time Code status: 2019 POLST was stated as DNR DNI and ?full treatment?. It is signed by the patient but not his provider. In a more recent admission the patient indicated to the hospitalist that he wanted to be full code. This needs to be clarified patient's [id number] is his son Corey Heard. [X] I have utilized all available immediate resources to obtain, update, or review of the patient's current medications VTE Deep Vein Thrombosis/Pulmonary Embolism Present on Admission: No MIPS - Admit I confirm the patient?s Advance Care Plan is present, Code status is documented, Surrogate decision maker is in patient?s record: Yes MIPS - DC The patient has current or prior documentation of left ventricular ejection fraction (LVEF) less than 40%, or moderate or severely depressed left ventricular systolic function.: No
[2021-12-03 01:44] LABS: INR 2.8 (0.9-1.3); Prothrombin Time 32.2 SECONDS (10.1-12.7)
[2021-12-03] MEDS: SODIUM CHLORIDE 0.9% 1,000 ML 100 ML IV ×3 (01:47→21:18)
[2021-12-03] MEDS: INSULIN LISPRO 100 UNIT/ML 3ML VIAL SUBCUT ×5 (01:51→21:12)
[2021-12-03 02:03] LABS: Hemoglobin A1C% w Est Avg Glu 9.4 % (4.0-6.0)
--- NOTE | 2021-12-03 02:06 | PC.ADMIT ---
[id number] [facility] Admission Note: The patient,Marty Heard,86 y/o, was given written information regarding hospital policies, unit procedures and contact persons. Patient's smoking status: Never smoker. Vital Signs - 8 hr 12/02/21 18:30 12/02/21 18:30 12/02/21 19:00 Temperature Pulse Rate 95 H Respiratory Rate Blood Pressure 115/64 109/67 Pulse Oximetry 99 Oxygen Delivery Method Oxygen Flow Rate 12/02/21 19:00 12/02/21 19:30 12/02/21 19:31 Temperature Pulse Rate 92 H 97 H Respiratory Rate Blood Pressure 148/88 H Pulse Oximetry 100 Oxygen Delivery Method Oxygen Flow Rate 12/02/21 19:31 12/02/21 20:00 12/02/21 20:00 Temperature Pulse Rate 91 H 117 H Respiratory Rate 20 20 Blood Pressure 134/67 Pulse Oximetry 98 Oxygen Delivery Method Oxygen Flow Rate 12/02/21 20:30 12/02/21 20:30 12/02/21 21:00 Temperature Pulse Rate 110 H Respiratory Rate Blood Pressure 130/91 H 113/78 Pulse Oximetry Oxygen Delivery Method Oxygen Flow Rate 12/02/21 21:00 12/02/21 21:30 12/02/21 21:30 Temperature Pulse Rate 99 H 108 H Respiratory Rate 20 22 Blood Pressure 127/63 Pulse Oximetry 97 97 Oxygen Delivery Method Oxygen Flow Rate 12/02/21 22:00 12/02/21 22:01 12/02/21 22:01 Temperature Pulse Rate 100 H 103 H Respiratory Rate 22 22 Blood Pressure 154/69 H Pulse Oximetry 98 98 Oxygen Delivery Method Oxygen Flow Rate 12/02/21 22:30 12/02/21 23:05 12/02/21 23:05 Temperature Pulse Rate 91 H 106 H Respiratory Rate 22 22 Blood Pressure 117/59 L Pulse Oximetry 99 98 Oxygen Delivery Method Oxygen Flow Rate 12/02/21 23:30 12/02/21 23:30 12/03/21 00:00 Temperature Pulse Rate 94 H Respiratory Rate 20 Blood Pressure 121/57 L 103/56 L Pulse Oximetry 96 Oxygen Delivery Method Oxygen Flow Rate 12/03/21 00:00 12/03/21 01:08 12/03/21 00:22 Temperature Pulse Rate 88 Respiratory Rate 20 Blood Pressure Pulse Oximetry 98 Oxygen Delivery Method Room Air Room Air Oxygen Flow Rate 0 12/03/21 00:50 12/03/21 01:00 Temperature 99.1 F 99.1 F Pulse Rate 93 H 93 H Respiratory Rate 19 19 Blood Pressure 119/59 L 119/59 L Pulse Oximetry 98 98 Oxygen Delivery Method Oxygen Flow Rate 0 0 Patient admitted to room 224 at 0022 per stretcher and transferred into bed with slider board. Is alert and oriented. Soft spoken and talks continuously in response to questions asked; has some difficulty with word finding. 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 PLATINUM and does not have hearing aids. Breath sounds CTA with RA sat of 98%. HR irregular w/telemetry reading of afib CVR + BBB. Denies nausea. BT present and was incontinent of loose stool in ER. States he has control of bladder; denies dysuria. Is needing assistance to reposition in bed. Failed his ambulation trial in ER so will leave him on bedrest at this time. Complains of pain in bilateral knees; has good ROM in right knee but decreased ROM in left. Weakness present in bilateral LE. Fall risk assessment is high and bed alarm is activated. Oriented to bed controls and call light.
[2021-12-03] MEDS: LEVOTHYROXINE 50 MCG TABLET PO (05:29)
[2021-12-03 08:15] LABS: Add Manual Diff / Slide Review NO; Basophils Absolute Auto 0 /uL (0-100); Basophils Percent Auto 0.5 % (0-2); Eosinophils Absolute Auto 100 /uL (0-450); Eosinophils Percent Auto 1.7 % (2-4); Hematocrit 31.9 % (41-53); Lymphocytes Absolute Auto 1100 /uL (1100-4500); Lymphocytes Percent Auto 15.7 % (25-40); Mean Corpuscular HGB Conc 34.5 % (30-36); Mean Corpuscular Volume 86.9 fL (80-100); Monocytes Absolute Auto 500 /uL (0-900); Monocytes Percent Auto 7.5 % (3-14); Neutrophils Absolute Auto 5300 /uL (1500-7000); Neutrophils Percent Auto 74.6 % (50-75); Platelet Count 155 X10^3/uL (150-400); Red Blood Cell Count 3.67 X10^6/uL (4.5-5.9); Red Cell Distribution Width 14.4 % (11.6-14.8); White Blood Cell Count 7.1 X10^3/uL (4.5-11.0)
[2021-12-03 08:22] LABS: INR 2.5 (0.9-1.3); Prothrombin Time 29.4 SECONDS (10.1-12.7)
[2021-12-03 08:26] LABS: BUN Creatinine Ratio 19.1 (6-22); Blood Urea Nitrogen 31 mg/dL (9-20); Calcium 7.7 mg/dL (8.4-10.2); Carbon Dioxide 22 mmol/L (22-32); Chloride 110 mmol/L (98-107); Estimated Glomerular Filt Rate 41 mL/min (>60); Glucose 192 mg/dL (80-110); HEMOLYSIS < 15 (0-50); Magnesium 1.8 mg/dL (1.6-2.3); Potassium 3.8 mmol/L (3.4-5.1); Sodium 139 mmol/L (137-145)
[2021-12-03 09:14] LABS: TSH w/ Reflex to FT4 0.86 uIU/mL (0.47-4.68)
[2021-12-03] MEDS: DIGOXIN 0.125 MG TABLET PO (09:50)
[2021-12-03] MEDS: METOPROLOL IR 25 MG TABLET 12.5 MG PO (09:50)
[2021-12-03] MEDS: BICALUTAMIDE 50 MG TABLET PO (09:52)
--- NOTE | 2021-12-03 10:25 | PT.IIE ---
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 (12/02/21) Surgical History (Last Reviewed 12/02/21 @ 19:02 by Adam Majano DO) H/O colectomy H/O vasectomy History of throat surgery History of transurethral resection of prostate Hx of cholecystectomy Hx of circumcision Hx of prostate biopsy Status post bilateral hernia repair Medical History (Last Updated 12/03/21 @ 01:07 by FRANK Christian) Arthritis Cancer of left ear Chronic atrial fibrillation with RVR Community acquired pneumonia COVID-19 Diabetes E coli infection Hernia of abdominal cavity High blood pressure History of back pain Hypothyroidism Inguinal hernia bilateral, non-recurrent Kidney stones Male circumcision Melanoma Prostate cancer Right eye injury Warfarin anticoagulation Physical Therapy Inpatient Evaluation/Re-Eval M1 PT/OT-IP Prior Functional Status Start: 12/03/21 11:49 Freq: NEEDED Status: Active Protocol: Document 12/03/21 10:25 AB (Rec: 12/03/21 12:00 AB [id number]) Medical Review Prior Functional Status Medical History Reviewed Yes Communication able to make needs known; VENETIE Mobility and Gait pt stated that he is modified independent with all mobilities and ambulation using a SPC but occasionally a 4WW indoors; for outdoor mobility, pt stated that he switches from a 4WW, SPC or 2 walking sticks depending on where he is going Social History Household Members spouse Living Arrangements House Number of Floors (Floors) One Floor Number of Stairs To Enter/Railing? ramp to enter with full rail on R and 1/2 on L Home Environment High Toilet,Walk in Shower, Built-In Shower Seat Home Equipment Four Wheel Walker,Straight Cane,Hand Held Shower,Lift Recliner,Grab Bars Near Toilet ,Grab Bars In Shower Additional Social History Comment pt has an adjustable bed with a transfer pole on the L; has a lift recliner with 2 transfer poles pt stated that spouse has dementia and will not be able to assist him; stated their caregiver is out of town. 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 AND FINISHER Visits 0 Physical Therapy Visit Comments Patient Comments agreeable to do PT Therapy Pain Assessment Pain When Pain Assessed During Mobility Pain Present Pain Present Pain Reported Location Left Knee Intensity 7 Scale Used Numeric (0 - 10) Pain Management Techniques Apply Cold,Distraction, Elevation,Modification of Treatment,Re-positioning M4 PT-IP Mobility and Gait Start: 12/03/21 11:49 Freq: NEEDED Status: Active Protocol: Document 12/03/21 10:25 AB (Rec: 12/03/21 12:00 AB [id number]) PT-Bed Mobility Assessment Supine to Sit Supine to Sit Maximum Assistance,Head of Bed Elevated,Bedrails Scooting Scooting to Edge of Bed Maximum Assistance PT-Transfer Assessment Sit to and From Stand Sit to and from Stand Maximum Assistance,1 Person Assistance,Use of Upper Extremities Equipment Transfer Assistive Device Gait Belt,Front Wheeled Walker Orthotic/Prosthetic Devices or Brace: No Transfers Transfer Destination Chair Transfer Technique Stand Step Pivot Transfer Ability Level of Assist Maximum Assistance,1 Person Assistance,Use of Upper Extremities Comments Mobility Comments completed supine to sit max A and max cues with HOB elevated and use of bedrail. able to sit on EOB CGA. required max A for scooting to EOB. completed sit to stand max A and max cues. required 2 attempts to complete task. completed step transfer to chair using FWW max A and max cues. positioned pt on the chair. call light and table placed within reach. PT-Balance Assessment Sitting Balance and Reactions Static Sitting Balance Ability Good Dynamic Sitting Balance Ability Fair Standing Balance and Reactions Static Standing Balance Ability Poor Dynamic Standing Balance Ability Poor Device Used FWW M5 PT-IP Objective Assessments Start: 12/03/21 11:49 Freq: NEEDED Status: Active Protocol: Document 12/03/21 10:25 AB (Rec: 12/03/21 12:00 AB [id number]) Orientation Orientation/Cognition Level of Alertness Alert Orientation Name,Place,Situation Language Function Ability Hard of Hearing Safety Awareness Decreased Safety Awareness Memory Description Short Term Impaired,Assisted Impaired Gross Range of Motion Lower Extremity ROM Assessment Left Impaired Impairments pain limiting range with c/o increase pain with movement Strength Lower Extremity Strength Assessment Bilaterally Impaired Comments Strength Comments RLE: 3+/5 LLE: 3/5 Sensation Assessment Sensation Gross Sensation WNL Muscle Tone Muscle Tone WNL Yes M6 PT-IP Treatment Start: 12/03/21 11:49 Freq: NEEDED Status: Active Protocol: Document 12/03/21 10:25 AB (Rec: 12/03/21 12:00 AB [email or web address]) Physical Therapy Treatment Education Education Provided Safety M7 PT-IP Assessment and Plan Start: 12/03/21 11:49 Freq: NEEDED Status: Active Protocol: Document 12/03/21 10:25 AB (Rec: 12/03/21 12:00 AB [email or web address]) PT Summary Assessment and Plan Potential Rehabilitation Potential Fair Status of Condition at Evaluation Evolving Summary Impairments Pain,ROM,Strength,Balance, Coordination,Sensation,Tone, Cognition,Bed Mobility, Transfers,Gait,Activity Tolerance Assessment Summary pt requiring max A with mobility using FWW and unable to ambulate at this time. c/o increase L knee pain with movement. pt will require SNF rehab to improve overal strength and mobility independence. Goals Bed Mobility Goal Standby Assistance Transfer Goal Standby Assistance,Front Wheeled Walker Gait Goal Standby Assistance,Front Wheel Walker Gait Distance 50 Other Goals improve bed mobility, transfers using 4WW mod I, ambulation using 4WW mod I 150 ft Days to Meet Goals 10 Frequency of Treatment Frequency Of Treatment Once a Day Treatment Plan Physical Therapy Treatment Plan Bed Mobility Training,Transfer Training,Gait Training, Therapeutic Exercise,Balance Retraining,Discharge Planning, Hot or Cold Pack,Neuromuscular Re-ed,Coordination Retraining ,Manual Therapy Precautions Other Precautions falls Recommendations To Nursing Amount of Assist Needed 2 Person Assist Discharge Recommendations PT Discharge Recommendations SNF Rehab Equipment Needed for Home Before FWW if not safe with 4WW Discharge Transportation Needs at Discharge Wheelchair/Cabulance
[2021-12-03] MEDS: ACETAMINOPHEN 325 MG TABLET 650 MG PO (10:58)
--- NOTE | 2021-12-03 14:01 | CM.DANOTE ---
Patient is an 86 yo male who was admitted on 12/02/21 for GLF. Pt has [facility] for insurance and his PCP is Dr. Lo Figueroa. EMR was reviewed. Per , pt with hx of AFIB, receiving current tx for prostate CA, and admitted with RAFFAELE, UTI, Poorly controlled diabetes. SW met bedside with spouse and explained role and pt somewhat MASHPEE and short term memory recall somewhat slow but alert and oriented and able to provide accurate historical information. Pt confirms he lives in [place] still with his who has some dementia and they have a CG a few days a week that helps with chores, meal prep, and transportation to the store and errands. Pt was last admitted when he tested COVID+ and was in the hospital about a week before going to [place] [facility] for SNF rehab for 3 weeks to their COVID unit. Pt also has a hx of SNF at [facility] and has used [facility] before but currently not open with any HH services. Pt states his son Corey Heard is his DPOA and son lives in [place]. Pt is hopeful to d/c back home with HH but realizes that he will need to be able to ambulate with walker independently before he could go home and became tearful about his struggles with still feeling like he hasn't fully recovered from COVID from a long time ago. Per PT, currently recommending SNF. OT ordered and pending and eval cannot happen today as no OT available today. SW made [facility] SNF referral per pt preference and they are willing to review. SW made initial [facility] referral based on [facility] calendar and pt's frustration with [facility] cancelling and rescheduling with him last time in case HH needed if pt improves and is safe for home or [facility] denies SNF auth. Plan: SW to follow closely in the AM for further PT and then OT eval towards determining if [facility] auth will still be needed for SNF vs home with new [facility] referral. No F2F or PASRR completed yet pending further therapies. SILVERIO Vigil Discharge Planning/Care Management CM Discharge Assessment Start: 12/03/21 13:15 Freq: Status: Active Protocol: Document 12/03/21 13:15 BF (Rec: 12/03/21 13:39 BF [id number]) Discharge Planning Assessment Assigned Mechanical Tech SILVERIO Gonzalez DPOA/Assigned Designee Name Son Corey CorneliusHeard in [place] Advance Directives? Yes: POLST Advance Directives on File Yes History Provided By Patient,Medical Record Has Patient been admitted in last 30 No days? Prior Living Arrangements House Household Members spouse Comment Has a CG a few days a week as well Type of transporation used prior to Relies on Others admit Comment CG typically transports for errands and the store Independent with ADL's Yes: mostly Is patient alert and oriented? some mild memory issues Needs Assistance With Meal Prep,Home Chores / Shopping Caregiver for Another Yes: demented spouse DME Already Rented / Owned FWW / Walker,Cane Patient/Family Preference Custodial Facility,Home with Home Health Comment SNF vs HH pending progress and if [facility] will auth SNF Barriers to Discharge No Discharge Plan Custodial Facility Transportation Arrangement Facility van if SNF vs friend transport home Referrals Initiated Custodial,Home Health Additional Comment SNF vs HH If patient plan is home with home health Yes : Has signed face to face form been completed? Medicare Choice List Provided Yes Has Agency SNF been contacted Yes Whiteboard Updated in Patient Room with Yes name and ext. # of Mechanical Tech Review Status In Process Please Provide Date Initial DC 12/03/21 Assessment Was Performed Next Review Type Continued Stay Review
[2021-12-03] MEDS: WARFARIN 5 MG TABLET PO (16:38)
[2021-12-03] MEDS: POLYVINYL ALCOHOL DROPS 1 DROPS EYE-BOTH (16:38)
--- NOTE | 2021-12-03 16:44 | PM.PN.1 ---
Subjective Subjective Interval history: Feeling better. May complaint is left knee pain where he fell. His only taken Tylenol. On discussion he is agreeable to taking tramadol for this pain. His other medication has been sorted out by pharmacy and the patient feels better about this. Blood sugars have been high per nursing throughout the day since the patient will only take Lantus at night despite having high blood sugar. Exam Vital Signs (past 8 hours): - 12/03/21 09:50 12/03/21 13:00 12/03/21 13:20 Temperature 97.0 F L Pulse Rate 86 73 Respiratory Rate 18 Blood Pressure 112/74 81/63 L Pulse Oximetry 98 99 Oxygen Delivery Method Room Air Oxygen Flow Rate 0 0 Oxygen Delivery Method Room Air Oxygen Flow Rate 0 Narrative Exam Narrative: Gen: Alert, oriented, obese male, very talkative HEENT: normocephalic, atraumatic, conjunctiva clear, sclera non-icteric, oral mucosa pink and moist Neck: supple, full ROM, no JVD, trachea is midline Resp: Lungs CTA, non-labored breathing. No wheezes or crackles. CV: Heart sounds S1-S2, irregularly irregular rhythm, no murmur or rubs Abd: soft, non-tender, bowel sounds normal Skin: no lesions or rashes, dry and intact Neuro: Alert and oriented X 4 w/no focal deficits. Speech clear and coherent. Extremities: moves all 4 extremities, is ambulatory, negative Celina?s sign Psyche: normal mood and affect. Objective Labs Result Diagrams: 12/03/21 08:06 12/03/21 08:06 Labs: Laboratory Results - last 24 hr 12/02/21 12/02/21 12/02/21 15:35 16:05 16:05 WBC RBC Hgb Hct MCV MCH MCHC RDW Plt Count Neut % (Auto) Lymph % (Auto) [place] % (Auto) Eos % (Auto) Baso % (Auto) Neut # (Auto) Lymph # (Auto) [place] # (Auto) Eos # (Auto) Baso # (Auto) PT INR Sodium 138 Potassium 5.0 Chloride 106 Carbon Dioxide 24 BUN 37 H Creatinine 1.98 H Estimated GFR 32 L BUN/Creatinine Ratio 18.7 Glucose 292 H Hemoglobin A1c Lactate 2.9 H Calcium 8.5 Magnesium Total Bilirubin 1.0 AST 44 ALT 31 Alkaline Phosphatase 106 Total Creatine Kinase 57 CK-MB (CK-2) TNP CK-MB (CK-2) Rel Index TNP Troponin I 0.012 Total Protein 6.9 Albumin 3.6 Globulin 3.3 Albumin/Globulin Ratio 1.1 Lipase 85 Procalcitonin TSH Urine RBC Urine WBC Ur Squamous Epith Cells Urine Bacteria Ur Culture Indicated? SARS-CoV-2 (PCR) Negative 12/02/21 12/02/21 12/02/21 16:05 19:00 19:50 WBC RBC Hgb Hct MCV MCH MCHC RDW Plt Count Neut % (Auto) Lymph % (Auto) [place] % (Auto) Eos % (Auto) Baso % (Auto) Neut # (Auto) Lymph # (Auto) [place] # (Auto) Eos # (Auto) Baso # (Auto) PT INR Sodium 138 Potassium 4.1 Chloride 105 Carbon Dioxide 22 BUN 35 H Creatinine 1.81 H Estimated GFR 36 L BUN/Creatinine Ratio 19.3 Glucose 260 H Hemoglobin A1c 9.4 H Lactate 2.0 Calcium 8.1 L Magnesium Total Bilirubin AST ALT Alkaline Phosphatase Total Creatine Kinase CK-MB (CK-2) CK-MB (CK-2) Rel Index Troponin I Total Protein Albumin Globulin Albumin/Globulin Ratio Lipase Procalcitonin TSH Urine RBC Urine WBC Ur Squamous Epith Cells Urine Bacteria Ur Culture Indicated? SARS-CoV-2 (PCR) 12/02/21 12/02/21 12/03/21 19:50 20:30 01:16 WBC RBC Hgb Hct MCV MCH MCHC RDW Plt Count Neut % (Auto) Lymph % (Auto) [place] % (Auto) Eos % (Auto) Baso % (Auto) Neut # (Auto) Lymph # (Auto) [place] # (Auto) Eos # (Auto) Baso # (Auto) PT 32.2 H INR 2.8 H Sodium Potassium Chloride Carbon Dioxide BUN Creatinine Estimated GFR BUN/Creatinine Ratio Glucose Hemoglobin A1c Lactate Calcium Magnesium Total Bilirubin AST ALT Alkaline Phosphatase Total Creatine Kinase CK-MB (CK-2) CK-MB (CK-2) Rel Index Troponin I Total Protein Albumin Globulin Albumin/Globulin Ratio Lipase Procalcitonin 0.56 H TSH Urine RBC 0-1/hpf Urine WBC 5-10/hpf H Ur Squamous Epith Cells None seen Urine Bacteria Occasional (0-1) Ur Culture Indicated? Specimen cultured SARS-CoV-2 (PCR) 12/03/21 12/03/21 12/03/21 08:06 08:06 08:06 WBC 7.1 RBC 3.67 L Hgb 11.0 L Hct 31.9 L MCV 86.9 MCH 30.0 MCHC 34.5 RDW 14.4 Plt Count 155 Neut % (Auto) 74.6 Lymph % (Auto) 15.7 L [place] % (Auto) 7.5 Eos % (Auto) 1.7 L Baso % (Auto) 0.5 Neut # (Auto) 5300 Lymph # (Auto) 1100 [place] # (Auto) 500 Eos # (Auto) 100 Baso # (Auto) 0 PT 29.4 H INR 2.5 H Sodium 139 Potassium 3.8 Chloride 110 H Carbon Dioxide 22 BUN 31 H Creatinine 1.62 H Estimated GFR 41 L BUN/Creatinine Ratio 19.1 Glucose 192 H Hemoglobin A1c Lactate Calcium 7.7 L Magnesium 1.8 Total Bilirubin AST ALT Alkaline Phosphatase Total Creatine Kinase CK-MB (CK-2) CK-MB (CK-2) Rel Index Troponin I Total Protein Albumin Globulin Albumin/Globulin Ratio Lipase Procalcitonin TSH Urine RBC Urine WBC Ur Squamous Epith Cells Urine Bacteria Ur Culture Indicated? SARS-CoV-2 (PCR) 12/03/21 08:06 WBC RBC Hgb Hct MCV MCH MCHC RDW Plt Count Neut % (Auto) Lymph % (Auto) [place] % (Auto) Eos % (Auto) Baso % (Auto) Neut # (Auto) Lymph # (Auto) [place] # (Auto) Eos # (Auto) Baso # (Auto) PT INR Sodium Potassium Chloride Carbon Dioxide BUN Creatinine Estimated GFR BUN/Creatinine Ratio Glucose Hemoglobin A1c Lactate Calcium Magnesium Total Bilirubin AST ALT Alkaline Phosphatase Total Creatine Kinase CK-MB (CK-2) CK-MB (CK-2) Rel Index Troponin I Total Protein Albumin Globulin Albumin/Globulin Ratio Lipase Procalcitonin TSH 0.86 Urine RBC Urine WBC Ur Squamous Epith Cells Urine Bacteria Ur Culture Indicated? SARS-CoV-2 (PCR) [facility] Medical History (Updated 12/03/21 @ 01:42 by Adam Majano DO) Arthritis Cancer of left ear Chronic atrial fibrillation with RVR Community acquired pneumonia COVID-19 Diabetes E coli infection Hernia of abdominal cavity High blood pressure History of back pain Hypothyroidism Inguinal hernia bilateral, non-recurrent Kidney stones Male circumcision Melanoma Prostate cancer Right eye injury Warfarin anticoagulation Surgical History H/O colectomy H/O vasectomy History of throat surgery History of transurethral resection of prostate Hx of cholecystectomy Hx of circumcision Hx of prostate biopsy Status post bilateral hernia repair Family History Mother Coronary artery disease Father Diabetes mellitus Hearing impairment Spouse CVA (cerebrovascular accident due to intracerebral hemorrhage) Kidney stones Social History marital status: number of children: 4 household members: spouse Smoking Status: Never smoker alcohol intake: former Type(s) of exercise: none Assessment & Plan Assessment & Plan narrative: 1. Acute on chronic kidney injury secondary to urinary tract infection, present on admission IV ceftriaxone in the emergency department this will be continued IV normal saline at 100 mL per hour 2. Atrial fibrillation, anticoagulated on warfarin His INR is therapeutic at 2.8, continue daily monitoring Continue home dose of warfarin which he takes alternating doses 5 mg Wednesday and Wednesday and 2.5 mg Wednesday and Wednesday. Rate control with digoxin 0.125 p.o. daily has been confirmed. 3. Poorly controlled diabetes with an A1c of 9.4, present on admission Lantus was increased to 36 units b.i.d. with medium dose correctional insulin, however patient refused to take b.i.d. and will only take 40 units at q.h.s.. Order has been changed to this. Carb controlled diet with ACHS glucose checks 4.Prostate cancer, currently being treated Continue home dose of bicalutamide 50 mg p.o. daily 5.Hypothyroidism, chronic Continue home dose of levothyroxine 50 mcg daily 6.Dyslipidemia, chronic Continue home dose of rosuvastatin 5 mg p.o. daily 7. Consistent with acute illness and infection. Acute weakness, present on admission. Physical therapy will be evaluating. VTE Prophylaxis: Wells risk score 0 X Bilateral SCDs? Patient is currently anticoagulated on warfarin. FEN: IV fluids:? Saline lock, diet:? Carb controlled Consultants none Dispo:? Unknown at this time Code status:? 2019 POLST was stated as DNR DNI and ?full treatment?.? It is signed by the patient but not his provider.? In a more recent admission the patient indicated to the hospitalist that he wanted to be full code.? This needs to be clarified patient's [id number] is his son Corey Heard. Time Spent With Patient Critical Care time: I spent a total of [] minutes of critical care time on this patient's care today; this time is exclusive of procedural time.
[2021-12-03] MEDS: TRAMADOL 50 MG TABLET PO (16:45)
[2021-12-03] MEDS: INSULIN GLARGINE 100 UNIT/ML 3ML PEN 40 UNIT SUBCUT (21:10)
[2021-12-03] MEDS: ATORVASTATIN 20 MG TABLET 10 MG PO (21:10)
[2021-12-03] MEDS: cefTRIAXone 1,000 MG in SODIUM CHLORIDE 0.9% 100 ML 200 MG IV (22:55)
[2021-12-04] VITALS (9 sets, daily range): BP systolic 97–119; BP diastolic 58–64; PULSE 68–97; RESP 17–20; TEMP 36.2–36.8; O2SAT 93–100
--- NOTE | 2021-12-04 01:03 | PC.NURSE ---
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 Breath sounds diminished throughout but CTA w/RA sat of 99%. HR irregular; hx of afib and was afib CVR w/BBB on telemetry reading. Denies nausea. BT present and abdomen is soft; had loose, incontinent stool on previous shift. Voiding per urinal; denies dysuria. Is assisted to reposition q2h as has difficulty moving himself. Transferred chair to bed with walker and 2 assist; very weak. Has had pain/limited ROM in left knee but denies pain at time of assessment. Bilateral calf SCD's applied. Fall risk score is high and bed alarm is activated
[2021-12-04] MEDS: HYDROCODONE/ACET 5/325 TABLET 1 TAB PO (02:19)
[2021-12-04 05:46] LABS: INR 2.6 (0.9-1.3); Prothrombin Time 29.9 SECONDS (10.1-12.7)
[2021-12-04 05:52] LABS: Add Manual Diff / Slide Review NO; Basophils Absolute Auto 0 /uL (0-100); Basophils Percent Auto 0.3 % (0-2); Eosinophils Absolute Auto 200 /uL (0-450); Eosinophils Percent Auto 2.8 % (2-4); Hematocrit 29.2 % (41-53); Hemoglobin 10.1 g/dL (13.5-17.5); Lymphocytes Absolute Auto 1400 /uL (1100-4500); Lymphocytes Percent Auto 20.5 % (25-40); Mean Corpuscular HGB Conc 34.7 % (30-36); Mean Corpuscular Hemoglobin 30.5 PG (26-34); Mean Corpuscular Volume 87.8 fL (80-100); Monocytes Absolute Auto 600 /uL (0-900); Monocytes Percent Auto 8.2 % (3-14); Neutrophils Absolute Auto 4700 /uL (1500-7000); Neutrophils Percent Auto 68.2 % (50-75); Platelet Count 143 X10^3/uL (150-400); Red Blood Cell Count 3.33 X10^6/uL (4.5-5.9); Red Cell Distribution Width 14.6 % (11.6-14.8)
[2021-12-04] MEDS: LEVOTHYROXINE 50 MCG TABLET PO (05:52)
[2021-12-04 05:55] LABS: BUN Creatinine Ratio 20.4 (6-22); Blood Urea Nitrogen 30 mg/dL (9-20); Calcium 7.5 mg/dL (8.4-10.2); Carbon Dioxide 23 mmol/L (22-32); Chloride 110 mmol/L (98-107); Estimated Glomerular Filt Rate 46 mL/min (>60); Glucose 223 mg/dL (80-110); HEMOLYSIS < 15 (0-50); Magnesium 1.8 mg/dL (1.6-2.3); Potassium 4.3 mmol/L (3.4-5.1); Sodium 140 mmol/L (137-145)
[2021-12-04] MEDS: INSULIN LISPRO 100 UNIT/ML 3ML VIAL SUBCUT ×4 (08:10→21:31)
[2021-12-04] MEDS: DIGOXIN 0.125 MG TABLET PO (08:13)
[2021-12-04] MEDS: BICALUTAMIDE 50 MG TABLET PO (08:14)
[2021-12-04] MEDS: SODIUM CHLORIDE 0.9% 1,000 ML 100 ML IV ×2 (08:15→21:48)
--- NOTE | 2021-12-04 09:30 | PM.PN.1 ---
Subjective Subjective Date Patient Seen: 12/04/21 Time Patient Seen: 12:00 Interval history: Patient feeling better today, but notes ongoing occasional loose stools. Otherwise no complaints. He confirms that he is DNR. Exam Vital Signs (past 8 hours): - 12/04/21 04:00 12/04/21 04:00 12/04/21 08:13 Temperature 97.8 F Pulse Rate 68 72 Respiratory Rate 18 Blood Pressure 118/64 114/60 Pulse Oximetry 93 93 Oxygen Delivery Method Room Air Oxygen Flow Rate 0 12/04/21 08:00 Temperature 98.2 F Pulse Rate 72 Respiratory Rate 19 Blood Pressure 114/60 Pulse Oximetry 99 Oxygen Delivery Method Oxygen Flow Rate 0 Oxygen Delivery Method Room Air Oxygen Flow Rate 0 Narrative Exam Narrative: Gen: Alert, oriented, obese male, very talkative HEENT: normocephalic, atraumatic, conjunctiva clear, sclera non-icteric, oral mucosa pink and moist Neck: supple, full ROM, no JVD, trachea is midline Resp: Lungs CTA, non-labored breathing. No wheezes or crackles. CV: Heart sounds S1-S2, irregularly irregular rhythm, no murmur or rubs Abd: soft, non-tender, bowel sounds normal Skin: no lesions or rashes, dry and intact Neuro: Alert and oriented X 4 w/no focal deficits. Speech clear and coherent. Extremities: moves all 4 extremities, is ambulatory, negative Celina?s sign Psyche: normal mood and affect. Objective Labs Result Diagrams: 12/04/21 05:26 12/04/21 05:26 Labs: Laboratory Results - last 24 hr 12/04/21 12/04/21 12/04/21 05:26 05:26 05:26 WBC 7.0 RBC 3.33 L Hgb 10.1 L Hct 29.2 L MCV 87.8 MCH 30.5 MCHC 34.7 RDW 14.6 Plt Count 143 L Neut % (Auto) 68.2 Lymph % (Auto) 20.5 L [place] % (Auto) 8.2 Eos % (Auto) 2.8 Baso % (Auto) 0.3 Neut # (Auto) 4700 Lymph # (Auto) 1400 [place] # (Auto) 600 Eos # (Auto) 200 Baso # (Auto) 0 PT 29.9 H INR 2.6 H Sodium 140 Potassium 4.3 Chloride 110 H Carbon Dioxide 23 BUN 30 H Creatinine 1.47 H Estimated GFR 46 L BUN/Creatinine Ratio 20.4 Glucose 223 H Calcium 7.5 L Magnesium 1.8 PFSH Medical History (Updated 12/03/21 @ 01:42 by Adam Majano DO) Arthritis Cancer of left ear Chronic atrial fibrillation with RVR Community acquired pneumonia COVID-19 Diabetes E coli infection Hernia of abdominal cavity High blood pressure History of back pain Hypothyroidism Inguinal hernia bilateral, non-recurrent Kidney stones Male circumcision Melanoma Prostate cancer Right eye injury Warfarin anticoagulation Surgical History H/O colectomy H/O vasectomy History of throat surgery History of transurethral resection of prostate Hx of cholecystectomy Hx of circumcision Hx of prostate biopsy Status post bilateral hernia repair Family History Mother Coronary artery disease Father Diabetes mellitus Hearing impairment Spouse CVA (cerebrovascular accident due to intracerebral hemorrhage) Kidney stones Social History marital status: number of children: 4 household members: spouse Smoking Status: Never smoker alcohol intake: former Type(s) of exercise: none Assessment & Plan Assessment & Plan narrative: 1. Acute on chronic kidney injury, present on admission, improving -Cr 1.98 and improving to 1.47 -likely prerenal due to 2 weeks of diarrhea -stop abx as patient denies any urinary symptoms -continue IV normal saline at 100 mL per hour 2. Atrial fibrillation, anticoagulated on warfarin -His INR is therapeutic at 2.8, continue daily monitoring -Continue home dose of warfarin which he takes alternating doses 5 mg Wednesday and Wednesday and 2.5 mg Wednesday and Wednesday. -Rate control with digoxin 0.125 p.o. daily has been confirmed. 3. Poorly controlled diabetes with an A1c of 9.4, present on admission -Lantus was increased to 36 units b.i.d. with medium dose correctional insulin, however patient refused to take b.i.d. and will only take 40 units at q.h.s.. Order has been changed to this. -Carb controlled diet with ACHS glucose checks 4.Prostate cancer, currently being treated -Continue home dose of bicalutamide 50 mg p.o. daily 5.Hypothyroidism, chronic -Continue home dose of levothyroxine 50 mcg daily 6.Dyslipidemia, chronic -Continue home dose of rosuvastatin 5 mg p.o. daily 7. Consistent with acute illness and infection. Acute weakness, present on admission. -Physical therapy eval noting SNF 8. Acute loose stools -start imodium PRN VTE Prophylaxis: warfarin Dispo:?Likely to SNF as patient max assist per PT. Code status:? Confirmed with patient on 12/04 he is DNR. Proxy and DPOA is his son Corey Heard. Time Spent With Patient Critical Care time: I spent a total of [] minutes of critical care time on this patient's care today; this time is exclusive of procedural time.
--- NOTE | 2021-12-04 11:00 | PT.IPTN ---
Current Diagnoses hot tamale man (current) use of anticoagulants (12/02/21) Physical Therapy Treatment Note M2 PT-IP Current Condition Start: 12/03/21 11:49 Freq: NEEDED Status: Active Protocol: Document 12/03/21 10:25 AB (Rec: 12/03/21 12:00 AB [id number]) Physical Therapy Current Condition Current Condition Evaluation Date 12/03/21 Treatment Diagnosis GLF; UTI; difficulty in walking Onset Date 12/02/21 M3 PT-IP Subjective Start: 12/03/21 11:49 Freq: NEEDED Status: Active Protocol: Document 12/04/21 10:37 KS (Rec: 12/04/21 12:06 KS [id number]) Subjective Physical Therapy Visit Type Type Treatment Note Visit Start Time 10:37 Visit Stop Time 11:00 Total Visit Minutes 23 Notes Partial co-treat w/ OT Number of MANAGER FOOD Visits 1 Physical Therapy Visit Comments Patient Comments agreeable to do PT Therapy Pain Assessment Pain When Pain Assessed During Mobility Pain Present Pain Present Pain Reported Location Back Intensity 8 Scale Used Numeric (0 - 10) Pain Behaviors Wincing Pain Management Techniques Distraction,Elevation,Re- positioning M4 PT-IP Mobility and Gait Start: 12/03/21 11:49 Freq: NEEDED Status: Active Protocol: Document 12/04/21 10:37 KS (Rec: 12/04/21 12:06 KS [id number]) PT-Bed Mobility Assessment Supine to Sit Supine to Sit Standby Assistance Scooting Scooting to Edge of Bed Contact Guard Assistance PT-Transfer Assessment Sit to and From Stand Sit to and from Stand Minimal Assistance,2 Person Assistance,Use of Upper Extremities Equipment Transfer Assistive Device Gait Belt,Front Wheeled Walker Orthotic/Prosthetic Devices or Brace: No Transfers Transfer Destination Chair Transfer Technique Stand Step Pivot Transfer Ability Level of Assist Minimal Assistance,2 Person Assistance,Use of Upper Extremities Comments Mobility Comments Pt in bed upon arrival, agreeable to transfer to chair . Pt required Min A x2 for sit <>Stand w/ FWW and stand step pivot to chair. After seated rest break, pt agreed to try ambulating w/ FWW. Pt completed 2x 8ft ambulation w/ FWW Min A x2 w/ close chair follow and seated rest break between. Reveiwed ankle pumps, heel slides, and glute sets. Pt agreeable to complete in chair. Left in room w/ OT. Gait Assessment Gait Gait Assistance Required: Minimum Assistance,2 Person Assist Distance (Feet) 8 Able to Maintain Weight Bearing Status Yes During Gait Assistive Devices Assistive Device Gait Belt,Front Wheeled Walker Orthotic/Prosthetic Devices or Brace: No Gait Deviations General Gait Pattern Antalgic,Decreased Stride Length,Decreased Feet Clearance,Flexed Trunk Factors Limiting Gait Function Factors Limiting Gait Function Decreased Activity Tolerance, Decreased Sensation,Decreased Strength,Pain,Poor Balance, Poor Safety Awareness Comments Gait Comments 2x 8ft ambulaton w/ FWW Min A x2 w/ chair follow. PT-Balance Assessment Sitting Balance and Reactions Static Sitting Balance Ability Good Dynamic Sitting Balance Ability Fair Standing Balance and Reactions Static Standing Balance Ability Fair Dynamic Standing Balance Ability Fair Device Used FWW M5 PT-IP Objective Assessments Start: 12/03/21 11:49 Freq: NEEDED Status: Active Protocol: Document 12/03/21 10:25 AB (Rec: 12/03/21 12:00 AB [id number]) Orientation Orientation/Cognition Level of Alertness Alert Orientation Name,Place,Situation Language Function Ability Hard of Hearing Safety Awareness Decreased Safety Awareness Memory Description Short Term Impaired,Fci Impaired Gross Range of Motion Lower Extremity ROM Assessment Left Impaired Impairments pain limiting range with c/o increase pain with movement Strength Lower Extremity Strength Assessment Bilaterally Impaired Comments Strength Comments RLE: 3+/5 LLE: 3/5 Sensation Assessment Sensation Gross Sensation WNL Muscle Tone Muscle Tone WNL Yes M6 PT-IP Treatment Start: 12/03/21 11:49 Freq: NEEDED Status: Active Protocol: Document 12/04/21 10:37 KS (Rec: 12/04/21 12:06 KS [id number]) Physical Therapy Treatment Exercises Exercises Ankle Pumps,Gluteal Sets,Heel Slides Education Education Provided Safety M7 PT-IP Assessment and Plan Start: 12/03/21 11:49 Freq: NEEDED Status: Active Protocol: Document 12/04/21 10:37 KS (Rec: 12/04/21 12:06 KS [id number]) PT Summary Assessment and Plan Potential Rehabilitation Potential Fair Summary Impairments Pain,ROM,Strength,Balance, Coordination,Sensation,Tone, Cognition,Bed Mobility, Transfers,Gait,Activity Tolerance Progress Towards Goals Slow Progress due to Pain,Slow Progress due to Activity Tolerance Assessment Summary Pt progressing w/ mobility, hwoever still requiring Min A x2 for transfers and can only tolerate ~8 ft ambulation w/ FWW and close chair follow due to weakness, low activity tolerance, and high fall risk. He is not safe to go home and will require SNF to improve functional mobility independence. Goals Bed Mobility Goal Standby Assistance Transfer Goal Standby Assistance,Front Wheeled Walker Gait Goal Standby Assistance,Front Wheel Walker Gait Distance 50 Other Goals improve bed mobility, transfers using 4WW mod I, ambulation using 4WW mod I 150 ft Days to Meet Goals 10 Frequency of Treatment Frequency Of Treatment Once a Day Treatment Plan Physical Therapy Treatment Plan Bed Mobility Training,Transfer Training,Gait Training, Therapeutic Exercise,Balance Retraining,Discharge Planning, Hot or Cold Pack,Neuromuscular Re-ed,Coordination Retraining ,Manual Therapy Precautions Other Precautions falls Recommendations To Nursing Amount of Assist Needed 2 Person Assist Discharge Recommendations PT Discharge Recommendations SNF Rehab Equipment Needed for Home Before Pt has FWW Discharge Transportation Needs at Discharge Wheelchair/Cabulance
--- NOTE | 2021-12-04 11:11 | OT.IP.EVAL ---
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) use of anticoagulants (12/02/21) Past Medical History (Last Updated 12/03/21 @ 01:07 by FRANK Christian) Arthritis Cancer of left ear Chronic atrial fibrillation with RVR Community acquired pneumonia COVID-19 Diabetes E coli infection Hernia of abdominal cavity High blood pressure History of back pain Hypothyroidism Inguinal hernia bilateral, non-recurrent Kidney stones Male circumcision Melanoma Prostate cancer Right eye injury Warfarin anticoagulation Surgical History (Last Reviewed 12/02/21 @ 19:02 by Adam Majano DO) H/O colectomy H/O vasectomy History of throat surgery History of transurethral resection of prostate Hx of cholecystectomy Hx of circumcision Hx of prostate biopsy Status post bilateral hernia repair Occupational Therapy Inpatient Evaluation/Re-Eval M1 PT/OT-IP Prior Functional Status Start: 12/03/21 11:49 Freq: NEEDED Status: Active Protocol: Document 12/04/21 11:33 CGR (Rec: 12/04/21 12:14 CGR [id number]) Medical Review Prior Functional Status Medical History Reviewed Yes Communication able to make needs known; NAVAJO Mobility and Gait pt stated that he is modified independent with all mobilities and ambulation using a SPC but occasionally a 4WW indoors; for outdoor mobility, pt stated that he switches from a 4WW, SPC or 2 walking sticks depending on where he is going Activities of Daily Living and IADL's Pt was IND or MOD I for all ADLs. Pt states he can't put on his own socks so he does not wear socks. Pt was able to don his pants and underwear seated in a chair. Pt's does all cooking, cleaning, and laundry and they have a friend that comes to assist with all driving needs, and grocery shopping. Social History Household Members spouse Living Arrangements House Number of Floors (Floors) Two Floors Number of Stairs To Enter/Railing? ramp to enter with full rail on R and 1/2 on L Home Environment High Toilet,Walk in Shower, Built-In Shower Seat Home Equipment Four Wheel Walker,Straight Cane,Hand Held Shower,Lift Recliner,Grab Bars Near Toilet ,Grab Bars In Shower Additional Social History Comment pt has an adjustable bed with a transfer pole on the L; has a lift recliner with 2 transfer poles pt stated that spouse has dementia and will not be able to assist him; M1 PT/OT-IP Prior Functional Status Start: 12/04/21 11:32 Freq: NEEDED Status: Active Protocol: Document 12/04/21 11:33 CGR (Rec: 12/04/21 12:14 CGR [id number]) Medical Review Prior Functional Status Medical History Reviewed Yes Communication able to make needs known; NAVAJO Mobility and Gait pt stated that he is modified independent with all mobilities and ambulation using a SPC but occasionally a 4WW indoors; for outdoor mobility, pt stated that he switches from a 4WW, SPC or 2 walking sticks depending on where he is going Activities of Daily Living and IADL's Pt was IND or MOD I for all ADLs. Pt states he can't put on his own socks so he does not wear socks. Pt was able to don his pants and underwear seated in a chair. Pt's does all cooking, cleaning, and laundry and they have a friend that comes to assist with all driving needs, and grocery shopping. Social History Household Members spouse Living Arrangements House Number of Floors (Floors) Two Floors Number of Stairs To Enter/Railing? ramp to enter with full rail on R and 1/2 on L Home Environment High Toilet,Walk in Shower, Built-In Shower Seat Home Equipment Four Wheel Walker,Straight Cane,Hand Held Shower,Lift Recliner,Grab Bars Near Toilet ,Grab Bars In Shower Additional Social History Comment pt has an adjustable bed with a transfer pole on the L; has a lift recliner with 2 transfer poles pt stated that spouse has dementia and will not be able to assist him; M2 OT-IP Current Condition Start: 12/04/21 11:32 Freq: Status: Active Protocol: Document 12/04/21 11:33 CGR (Rec: 12/04/21 12:14 CGR [id number]) Occupational Therapy Current Condition Current Condition Evaluation Date 12/04/21 Treatment Diagnosis sepsis, UTI, GLF Diagnosis Onset Date 12/02/21 M3 OT- IP Subjective and Pain Start: 12/04/21 11:32 Freq: Status: Active Protocol: Document 12/04/21 11:33 CGR (Rec: 12/04/21 12:14 CGR [id number]) OT- Subjective Occupational Therapy Visit Type Type Initial Evaluation Visit Start Time 10:30 Visit Stop Time 11:11 Total Visit Minutes 41 Notes Partial co-treat with P.T. OT Pain Assessment Pain When Pain Assessed During Mobility Pain Present Pain Present Pain Reported Location Left Knee Scale Used did not rate Management Techniques Distraction,Modification of Treatment,Re-positioning M4 OT- IP ADL's Start: 12/04/21 11:32 Freq: Status: Active Protocol: Document 12/04/21 11:33 CGR (Rec: 12/04/21 12:14 CGR [id number]) OT VIS-Hxoz-Pvirzse Comments OT Self-Feeding Comments not meal time OT ADL-Grooming Comments OT Grooming Comments not performed OT ADL-Oral Care General Eval Oral Care Ability Standby Assistance Areas of Assistance Managing Dentures Comments Oral Care Comments Pt able to brush dentures seated in chair. OT ADL-Dressing Comments OT Dressing Comments not performed OT ADL-Toileting Comments OT Toileting Comments not performed OT ADL-Bathing Comments OT Bathing Comments not performed M5 OT- IP IADL's Start: 12/04/21 11:32 Freq: Status: Active Protocol: Document 12/04/21 11:33 CGR (Rec: 12/04/21 12:14 CGR [id number]) OT-Instrumental Activities of Daily Living Deficits IADL Deficits Identified No Deficits Home Safety Awareness Awareness of Need for Assistance at Home Good Awareness Ability to Problem Solve Emergency Able to Problem Solve Situations Medication Management Medication Management No Deficits Identified Money Management Money Management No Deficits Identified Meal Preparation Meal Preparation Caregiver Provides Assist Meal Preparation Comments Pt's does all of the cooking. Financial Institution Branch Manager Financial Institution Branch Manager Caregiver Provides Assist Financial Institution Branch Manager Comments Pt's does all of the cleaning. Driving Driving Comments Pt does not drive. M6 OT- IP Functional Cognition Start: 12/04/21 11:32 Freq: Status: Active Protocol: Document 12/04/21 11:33 CGR (Rec: 12/04/21 12:14 CGR [id number]) Cognitive Factors Limiting Selfcare Function Cognitive Ability Level of Alertness Alert Patient Orientation Name,Age,Birthday,Month,Date, Year,Day of Week,Place, Situation Attention Span Ability Capable of Focused Attention, Capable of Sustained Attention Ability to Follow Commands Able to Follow One Step Commands with Increased Time, Able to Follow One Step Commands with Repetition Memory Description No Deficits Noted Cognitive Comments Cognitive Assessment Comments Pt would benefit from a formal cog assessment OT- Vision and Hearing OT- Hearing Assessment OT- Hearing Assessment Hearing Impaired OT- Vision Assessment Visual Acuity Glasses All The Time Visual Attentiveness WFL Occular Pursuits WFL Vision Assessment Comments Pt wears bifocals M7 OT- IP Mobility and Balance Start: 12/04/21 11:32 Freq: Status: Active Protocol: Document 12/04/21 11:33 CGR (Rec: 12/04/21 12:14 CGR [id number]) OT- Bed Mobility Assessment Supine to Sit Supine to Sit Assist Standby Assistance,Head of Bed Elevated,Bedrails Scooting Scooting to Edge of Bed Standby Assistance,Head of Bed Elevated,Bedrails OT-Transfer Assessment Sit to and From Stand Sit to and from Stand Minimal Assistance,2 Person Assistance Transfers Transfer Ability Minimal Assistance,2 Person Assistance Technique Transfer Destination Bed,Chair Transfer Technique Stand Step Pivot Devices Transfer Assistive Devices Gait Belt,Front Wheeled Walker Comments Mobility Comments Pt stood from the bed with min a x 2 and transfered to the chair, then ambulated a few feet forward followed by chair . Pt sat in chair and then stood again for another few feet of mobility. Please see p .t. note for distance. Pt followed with chair and left sitting up in chair at end of session. OT- Balance Assessment Sitting Balance and Reactions Static Sitting Balance Ability Good Dynamic Sitting Balance Ability Fair M8 OT- IP Objective Assessments Start: 12/04/21 11:32 Freq: Status: Active Protocol: Document 12/04/21 11:33 CGR (Rec: 12/04/21 12:14 CGR [id number]) OT Gross Range of Motion Upper Extremity Range of Motion Assessment Within Functional Limits OT Strength Comments Strength Comments 4/5 OT- Coordination Assessment Upper Extremity Finger to Nose Test Within Functional Limits Finger Tapping Test Within Functional Limits OT-Muscle Tone Assessment Muscle Tone WNL Yes OT Sensation Assessment Comments Summary Comments Pt states that he has some tingling to B hands on his finger tips that comes and goes. Pt did not state is this is new. Edema Edema Present Edema Comments L knee M9 OT- IP Assessment and Plan Start: 12/04/21 11:32 Freq: Status: Active Protocol: Document 12/04/21 11:33 CGR (Rec: 12/04/21 12:14 CGR [id number]) OT Summary Assessment and Plan Potential Rehabilitation Potential Good Analytic Complexity at Evaluation Moderate Summary OT Impairments Pain,Strength,Balance, Functional Mobility,Grooming, Dressing,Toileting,Bathing, Toilet Transfers,Shower Transfers,Activity Tolerance Progress Towards Goals Slow Progress due to Pain,Slow Progress due to Medical Issues,Slow Progress due to Activity Tolerance Assessment Summary Pt presents as a moderate complexity evaluation s/p admit for GLF and found to have sepsis with UTI. Pt is currently moving with min x 2 but very limited distances and expresses pain to the L knee with movement. Pt would benefit from continued OT services and recommend d/c to SNF. Goals Grooming Goal Independent Dressing Goal Independent Toileting Goal Independent Bathing Goal Independent Toilet Transfer Goal Independent Shower Transfer Goal Independent,Shower Chair Days to Meet Goals 30 Frequency of Treatment Frequency Of Treatment Once a Day Treatment Plan OT Treatment Plan ADL Training,Functional Cognition Training,Functional Mobility,Patient/Family Education,Discharge Planning Other Treatment Recommendations and Next cog assessment, mobility to Treatment Focus ADLs as able. Discharge Recommendations OT Discharge Recommendations SNF Rehab Transportation Needs at Discharge Wheelchair/Cabulance
--- NOTE | 2021-12-04 12:53 | CM.DPC ---
Addendum entered by SILVERIO Vigil 12/04/21 15:48: ADD: SW left msg for Marjorie at [place] [facility] to alert her to request for SNF auth and possible d/c tomorrow. Addendum entered by SILVERIO Vigil 12/04/21 13:10: ADD: SW also attempted to discuss LTC planning with pt. He states he and spouse had a plan to move into [facility] right before COVID pandemic and then cancelled their plans and now spouse is refusing to move at this time. SW discussed the progression of dementia and to begin looking into other options like a hired/trained CG to assist better (their current caregiver is a friend and does not provide any physical assist etc.. just mostly rides). SW encouraged him to discuss further with his son for LTC planning as pt likely will have increased medical needs and spouse's dementia will continue to progress. BF Original Note: DCP Cont: Per MD, pt making progress but not medically stable to d/c yet today and maybe another 1-2 days pending progress. Per PT/OT, pt made slight improvement today and required slightly less physical assist but still recommending SNF as pt not safe for home with demented spouse at this time. [facility] auth obtained. MITESH faxed clinicals to [facility] to request review for SNF auth. MITESH met bedside with pt and explained role again and pt was still hopeful he could remain in the hospital until he was safe to return home and SW discussed medical neccessity to remain in the hospital and if stable for d/c in 1-2 days likely would not be safe for home yet at that time. Pt is hopeful he will be able to d/c home with new HH but agreeable to SW securing a plan B for discharge if he is still requiring assist with ambulation. Pt states preference for SNF is to remain in [place] and therefore [facility] is his preference as he has been there before a couple times in the past. PASRR completed in anticipation of SNF. Plan: SW to follow closely for [facility] review to determine if they will auth SNF. COVID swab will need to be updated if pt goes to SNF. [facility] referral made in case pt discharges home. Would need F2F if home. SILVERIO Vigil
[2021-12-04] MEDS: WARFARIN 5 MG TABLET 2.5 MG PO (17:37)
[2021-12-04] MEDS: MAGNESIUM SULFATE 2 GM/50 ML PIGGYBACK IV (18:29)
[2021-12-04] MEDS: INSULIN GLARGINE 100 UNIT/ML 3ML PEN 40 UNIT SUBCUT (21:30)
[2021-12-04] MEDS: ATORVASTATIN 20 MG TABLET 10 MG PO (21:32)
[2021-12-04] MEDS: TRAMADOL 50 MG TABLET PO (21:47)
[2021-12-04] MEDS: LOPERAMIDE 2 MG CAPSULE PO (21:48)
[2021-12-05] VITALS: BP 124/86; PULSE 76; RESP 17; TEMP 36.3; O2SAT 97
[2021-12-05 02:00] VITALS: O2SAT 97
[2021-12-05 04:00] VITALS: BP 113/53; PULSE 66; RESP 18; TEMP 36.4; O2SAT 98
[2021-12-05 05:46] LABS: BUN Creatinine Ratio 18.6 (6-22); Blood Urea Nitrogen 26 mg/dL (9-20); Calcium 7.8 mg/dL (8.4-10.2); Carbon Dioxide 22 mmol/L (22-32); Chloride 111 mmol/L (98-107); Estimated Glomerular Filt Rate 49 mL/min (>60); Glucose 210 mg/dL (80-110); HEMOLYSIS < 15 (0-50); Magnesium 2.2 mg/dL (1.6-2.3); Potassium 4.2 mmol/L (3.4-5.1); Sodium 137 mmol/L (137-145)
[2021-12-05 05:50] LABS: Add Manual Diff / Slide Review NO; Basophils Absolute Auto 0 /uL (0-100); Basophils Percent Auto 0.5 % (0-2); Eosinophils Absolute Auto 200 /uL (0-450); Eosinophils Percent Auto 3.8 % (2-4); Hematocrit 28.3 % (41-53); Hemoglobin 9.8 g/dL (13.5-17.5); Lymphocytes Absolute Auto 1500 /uL (1100-4500); Lymphocytes Percent Auto 27.1 % (25-40); Mean Corpuscular HGB Conc 34.7 % (30-36); Mean Corpuscular Hemoglobin 30.5 PG (26-34); Mean Corpuscular Volume 87.9 fL (80-100); Monocytes Absolute Auto 400 /uL (0-900); Monocytes Percent Auto 7.3 % (3-14); Neutrophils Absolute Auto 3500 /uL (1500-7000); Neutrophils Percent Auto 61.3 % (50-75); Platelet Count 131 X10^3/uL (150-400); Red Blood Cell Count 3.22 X10^6/uL (4.5-5.9); Red Cell Distribution Width 14.5 % (11.6-14.8); White Blood Cell Count 5.7 X10^3/uL (4.5-11.0)
[2021-12-05] MEDS: LEVOTHYROXINE 50 MCG TABLET PO (06:06)
[2021-12-05 07:21] LABS: INR 2.3 (0.9-1.3); Prothrombin Time 27.2 SECONDS (10.1-12.7)
[2021-12-05 08:00] VITALS: BP 112/64; PULSE 71; RESP 20; TEMP 37.2; O2SAT 97; O2SAT 98
--- NOTE | 2021-12-05 08:22 | P.DS_ITS ---
History of Present Illness History of Present Illness Chief complaint: GLF-hit head Narrative: Marty Heard is an 86 male nonsmoker with history of AFib anticoagulated on warfarin, kidney stones, prostate cancer in current treatment, pancreatitis, CHF presents by EMS for evaluation of a ground level fall with head injury.? He states that he had went to the bathroom and was feeling ill, he had a large watery stool and upon standing fell down, he does not have full recall and may have had a brief loss of consciousness.? He did strike his head but denies any other injury.? He is had 1 episode of vomiting.? He denies any chest pain or shortness of breath.? He denies any fever or chills.? He denies abdominal pain, dysuria or constipation.? He states that he is normally continent of urine and stool.? He denies any recent medication changes, dietary change, travel or bad food.? He has not been on antibiotics recently.? Chest x-ray ordered? 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 He has a mildly elevated white count 11.5 he is mildly anemic with a hemoglobin and hematocrit of 11.834.9 respectively, he does have a left shift, his INR is 2.8 within therapeutic limits, his creatinine is 1.81 which is close to his baseline, his glucose is 260 with an A1c of 9.4, calcium was 8.1, and procalcitonin mildly positive at 0.56.? UA had bacteria and urine WBC and the specimen was cultured.? COVID-19 PCR is negative. Patient's last echo was February 2021 indicating an EF of 55-60% with mild to moderate atrial dilation bilaterally. FH:? Mother at age 40 of a myocardial infarction.? Father age 76 due to surgical complications including liver laceration.? Son has undergone a 5 way coronary bypass. Discharge Providers Provider Date of admission: 12/02/21 23:26 Discharge Date: 12/05/21 Primary care physician: Lo Figueroa MD Consults: 12/03/21 01:06 Consult to Discharge Planning Routine Comment: weakness, deconditioning 12/03/21 03:47 Consult to Pharmacy Routine Comment: pls dose warf 5 mg wed 2.5 t, th, sa, sun 12/03/21 03:52 Consult to Physical Therapy Evaluate & Treat Comment: Weakness, falls Physician Instructions: Evaluate and Treat 12/03/21 13:12 Consult to Occupational Therapy Evaluate & Treat Comment: Pt has Wing, will need SNF auth Physician Instructions: Evaluate and treat Discharge provider: Brice Owens DO Summary Hospital Course Discharge Diagnosis: 1. Acute on chronic kidney injury, present on admission, resolved to baseline -Cr 1.98 and improving to 1.40 which appears to be his baseline -likely prerenal due to 2 weeks of diarrhea -stop abx as patient denies any urinary symptoms 2. Chronic atrial fibrillation, anticoagulated on warfarin -His INR is therapeutic at 2.8, continue daily monitoring -Continue home dose of warfarin which he takes alternating doses 5 mg Wednesday and Wednesday and 2.5 mg Wednesday and Wednesday. -Rate control with digoxin 0.125 p.o. daily has been confirmed. 3. Poorly controlled diabetes with an A1c of 9.4, present on admission -Lantus was increased to 36 units b.i.d. with medium dose correctional insulin, however patient refused to take b.i.d. and will only take 40 units at q.h.s..? Order has been changed to this. -Carb controlled diet with ACHS glucose checks ?4.Prostate cancer, currently being treated ?-Continue home dose of bicalutamide 50 mg p.o. daily ?5.Hypothyroidism, chronic ?-Continue home dose of levothyroxine 50 mcg daily ?6.Dyslipidemia, chronic ?-Continue home dose of rosuvastatin 5 mg p.o. daily ?7. Consistent with acute illness and infection.? Acute weakness, present on admission. ?-Physical therapy eval noting SNF ?8. Acute loose stools ?-start imodium PRN Hospital Course: Admitted for fall at home likely secondary to dehydration from 2 weeks of diarrhea. Found to have RAFFAELE which improved with IVF. Required max assist with PT so was discharged to SNF for rehab. He was tearful and worried about going to SNF due to his being at home with dementia, his numerous upcoming doctors appointments and his bills. He felt better after I encouraged him to focus on rehab in order to return home soon to take care of these things. He noted pain in his left knee from his fall was limiting his mobility so was discharged on increased home norco from 5mg BID to q4h PRN. Time Spent with Patient Time spent: Greater than 30 minutes Exam Vital Signs (past 8 hours): - 12/05/21 02:00 12/05/21 04:00 Temperature 97.6 F Pulse Rate 66 Respiratory Rate 18 Blood Pressure 113/53 L Pulse Oximetry 97 98 Oxygen Delivery Method Room Air Oxygen Delivery Method Room Air Oxygen Flow Rate 0 Narrative Exam Narrative: Gen: Alert, oriented, obese male, tearful today HEENT: normocephalic, atraumatic, conjunctiva clear, sclera non-icteric, oral mucosa pink and moist Neck: supple, full ROM, no JVD, trachea is midline Resp: Lungs CTA, non-labored breathing. No wheezes or crackles. CV: Heart sounds S1-S2, irregularly irregular rhythm, no murmur or rubs Abd: soft, non-tender, bowel sounds normal Skin: no lesions or rashes, dry and intact Neuro: Alert and oriented X 4 w/no focal deficits. Speech clear and coherent. Extremities: moves all 4 extremities, is ambulatory, negative Celina?s sign Psyche: normal mood and affect. Objective Labs Result Diagrams: 12/05/21 05:10 12/05/21 05:10 Labs: Laboratory Results - last 24 hr 12/05/21 12/05/21 12/05/21 05:10 05:10 05:10 WBC 5.7 RBC 3.22 L Hgb 9.8 L Hct 28.3 L MCV 87.9 MCH 30.5 MCHC 34.7 RDW 14.5 Plt Count 131 L Neut % (Auto) 61.3 Lymph % (Auto) 27.1 Randolph % (Auto) 7.3 Eos % (Auto) 3.8 Baso % (Auto) 0.5 Neut # (Auto) 3500 Lymph # (Auto) 1500 Randolph # (Auto) 400 Eos # (Auto) 200 Baso # (Auto) 0 PT 27.2 H INR 2.3 H Sodium 137 Potassium 4.2 Chloride 111 H Carbon Dioxide 22 BUN 26 H Creatinine 1.40 H Estimated GFR 49 L BUN/Creatinine Ratio 18.6 Glucose 210 H Calcium 7.8 L Magnesium 2.2 PFSH Medical History Arthritis Cancer of left ear Chronic atrial fibrillation with RVR Community acquired pneumonia COVID-19 Diabetes E coli infection Hernia of abdominal cavity High blood pressure History of back pain Hypothyroidism Inguinal hernia bilateral, non-recurrent Kidney stones Male circumcision Melanoma Prostate cancer Right eye injury Warfarin anticoagulation Surgical History H/O colectomy H/O vasectomy History of throat surgery History of transurethral resection of prostate Hx of cholecystectomy Hx of circumcision Hx of prostate biopsy Status post bilateral hernia repair Family History Mother Coronary artery disease Father Diabetes mellitus Hearing impairment Spouse CVA (cerebrovascular accident due to intracerebral hemorrhage) Kidney stones Social History marital status: number of children: 4 household members: spouse Smoking Status: Never smoker alcohol intake: former Type(s) of exercise: none Discharge Plan Discharge Plan Patient Disposition: SNF Transfer to: [facility] Discharge orders & Medications Prescriptions: Continued mupirocin 2 % ointment 1 applic topical TID Qty: 15 0RF midodrine 5 mg Tablet 5 mg PO 0600,1200,1800 Qty: 15 0RF Rx Instructions: Pt states his doctor took him off of this for a while; hes not sure why Takes once daily in am digoxin 125 mcg (0.125 mg) Tablet 0.125 mg PO DAILY Qty: 30 0RF lidocaine 5 % adhesive patch,medicated 1 patch topical DAILY PRN (Reason: pain) Qty: 15 0RF Rx Instructions: leave on most painful area for up to 12 hrs diclofenac sodium [Voltaren Arthritis Pain] 1 % gel 2 g topical QID Qty: 100 0RF Rx Instructions: apply to single elbow, wrist or hand; for hand includes palm/fingers/back of hand furosemide 20 mg tablet 20 mg PO BID levothyroxine 50 mcg Tablet 50 mcg PO MOTUWETHFRSA Rx Instructions: I tablet by mouth daily, except 2 tablets by mouth on Sundays warfarin [Coumadin] 5 mg tablet 5 mg PO 3XW docusate sodium 100 mg 100 mg PO DAILY warfarin 5 mg tablet 2.5 mg PO 4XW Rx Instructions: Tues, Thurs, Sat, Sun novolog flexpen See Rx Instructions .ROUTE .COMPLEX Rx Instructions: 12 units at breakfast, 9 units at lunch, and 15 units at dinner. rosuvastatin 5 mg tablet 5 mg PO DAILY sennosides [senna] 8.6 mg tablet 8.6 mg PO DAILY PRN (Reason: Constipation) triamcinolone acetonide 0.1 % cream 1 applic topical DAILY PRN (Reason: Rash) mecobalamin (vitamin B12) 1,000 mcg tablet,chewable 1,000 mcg PO DAILY bicalutamide [Casodex] 50 mg tablet 50 mg PO DAILY Qty: 30 0RF Lantus Solostar U-100 Insulin 100 unit/mL (3 mL) insulin pen 40 unit SUBCUT BEDTIME Changed hydrocodone-acetaminophen 5-325 mg tablet 1 tab PO Q4H PRN (Reason: pain) Qty: 30 0RF Rx Instructions: Do not take at the same time as the methocarbamol, they are sedating together and I do not want you to fall. Follow up/Referrals: Lo Figueroa MD [Primary Care Provider] - Discharge Data Primary Care Provider: Lo Figueroa
[2021-12-05 08:50] LABS: COVID19 -Nasal RAPID Negative (Negative)
--- NOTE | 2021-12-05 09:09 | CM.DPC ---
DCP Cont: [facility] auth#[id number] provided to DCP for SNF admission. DCP contacted [facility]. Provided above number. [facility] can accept pt today @ 1230. contacted and aware. EDWINA swab ordered. RN for pt aware and provided with nurse report number and time of pick up truck driver. Awaiting results and rx's. PASRR done. P: Pt to discharge today @ 1320 to [facility]. Vicki Raman RN/JUANP
[2021-12-05] MEDS: INSULIN LISPRO 100 UNIT/ML 3ML VIAL SUBCUT ×2 (09:12→12:31)
[2021-12-05] MEDS: HYDROCODONE/ACET 5/325 TABLET 1 TAB PO (09:24)
[2021-12-05] MEDS: LORazepam 0.5 MG TABLET PO (09:25)
[2021-12-05] MEDS: BICALUTAMIDE 50 MG TABLET PO (09:41)
[2021-12-05] MEDS: DIGOXIN 0.125 MG TABLET PO (09:41)
[2021-12-05 11:34] VITALS: BP 115/73; PULSE 82; RESP 21; TEMP 37.6; O2SAT 99
== END 2021-12-05 12:54 | DRG 683 ==
LOC: ED 17:48 → AC 23:26
PROVIDERS: Emergency Medicine; Student in an Organized Health Care Education/Training Program; Admitting Provider Nurse Practitioner Family; Emergency Provider Emergency Medicine; PCP Internal Medicine; Referring Provider Emergency Medicine; Visit Provider Nurse Practitioner Family
DX: N17.9 Acute kidney failure, unspecified (principal); I48.20 Chronic atrial fibrillation, unspecified; E11.65 Type 2 diabetes mellitus with hyperglycemia; C61 Malignant neoplasm of prostate; E03.9 Hypothyroidism, unspecified; E78.5 Hyperlipidemia, unspecified; R19.7 Diarrhea, unspecified; M19.90 Unspecified osteoarthritis, unspecified site; S00.83XA Contusion of other part of head, initial encounter; W18.30XA Fall on same level, unspecified, initial encounter; Z20.822 Contact with and (suspected) exposure to COVID-19; Z79.4 Long term (current) use of insulin; Z66 Do not resuscitate; Z79.01 Long term (current) use of anticoagulants
CPT/HCPCS: 36415; 70450; 71045; 80048; 80053; 81003; 81015; 82550; 82962; 83036; 83605; 83690; 83735; 84145; 84443; 84484; 85025; 85610; 87040; 87086; 87635; 93005; 93010; 96365; 97116; 97162; 97166; 97530; 97535; 99285; C9803; J0696; J1815; J3475

== ENCOUNTER → 2022-01-01 16:36 | Outpatient (CLI) | payer OTHER, SELFPAY ==
[2021-12-03 00:45] VITALS: BMI 32.4
--- NOTE | 2022-01-01 16:56 | DI.RAD.S_ITS ---
PROCEDURE: XR KUB INDICATIONS: Right kidney stone TECHNIQUE: One view of the abdomen acquired. COMPARISON: [facility], CT, CT KIDNEY URETER BLADDER (KUB), 06/05/2021, 11:29. [facility], CR, XR KUB, 10/06/2021, 13:13. FINDINGS: Surgical changes and devices: Cholecystectomy. Bowel: Bowel gas pattern is normal. Soft tissues: There is a 4 mm calcification projecting to the area of the inferior pole of the right kidney, suspicious for a stone. Renal contours, however, are obscured by colonic stool. No suspicious abdominal calcifications. Visualized solid organ contours appear normal in size. Bones: No suspicious bony lesions. IMPRESSION: Possible right renal stone. Dictated by: Krystal Rowe M.D. on 01/02/2022 at 17:19 Approved by: Krystal Rowe M.D. on 01/02/2022 at 18:31
[2022-01-01 19:49] LABS: Prostate Specific Antigen < 0.064 ng/mL (0.10-4.00)
== END ==
PROVIDERS: PCP Internal Medicine; Referring Provider Urology; Visit Provider Urology
DX: C61 Malignant neoplasm of prostate (principal); N20.0 Calculus of kidney
CPT/HCPCS: 36415; 74018; 84153

== ENCOUNTER → 2022-01-02 12:06 | Outpatient (CLI) | payer OTHER, SELFPAY ==
[2021-12-03 00:45] VITALS: BMI 32.4
== END ==
PROVIDERS: PCP Internal Medicine; Referring Provider Urology; Visit Provider Urology
DX: Z79.818 Long term (current) use of other agents affecting estrogen receptors and estrogen levels (principal); C61 Malignant neoplasm of prostate; Z13.820 Encounter for screening for osteoporosis
CPT/HCPCS: 77080

== ENCOUNTER → 2022-01-22 15:04 | Outpatient (ROUT) | payer OTHER, SELFPAY ==
[2021-12-03 00:45] VITALS: BMI 32.4
[2022-01-22 15:13] LABS: INR 2.2 (0.9-1.3); Prothrombin Time 25.9 SECONDS (10.1-12.7)
== END ==
PROVIDERS: PCP Internal Medicine; Visit Provider Internal Medicine
DX: I48.20 Chronic atrial fibrillation, unspecified (principal)
CPT/HCPCS: 85610

== ENCOUNTER 2022-02-14 10:55 | Emergency (ER) | payer OTHER, SELFPAY ==
[2021-12-03 00:45] VITALS: BMI 32.4
[2022-02-14 11:08] VITALS: BP 118/76; PULSE 76; RESP 24; TEMP 36.4; O2SAT 100; BMI 32.5
--- NOTE | 2022-02-14 12:28 | DI.RAD.S_ITS ---
PROCEDURE: XR ABDOMEN 1V INDICATIONS: bowel obstruction? TECHNIQUE: One view of the abdomen acquired. COMPARISON: None. FINDINGS: Surgical changes and devices: None. Bowel: Bowel gas pattern is normal. Soft tissues: No suspicious abdominal calcifications. Visualized solid organ contours appear normal in size. Bones: No suspicious bony lesions. IMPRESSION: No acute finding. Nonobstructive bowel gas pattern. Dictated by: Franki Hernandez M.D. on 02/14/2022 at 13:11 Approved by: Franki Hernandez M.D. on 02/14/2022 at 13:11
--- NOTE | 2022-02-14 15:22 | PC.NURSE ---
updated pt on wait. stated his glucose was low. bg checked and charted. pt is talking in full sentences in lobby
--- NOTE | 2022-02-14 15:55 | DI.CT.S_ITS ---
PROCEDURE: CT ABDOMEN PELVIS WO CON INDICATIONS: c/f bowel obstruction v/s colitis/diverticulitis TECHNIQUE: Noncontrast 5 mm thick sections acquired from the diaphragms to the symphysis. 5 mm coronal and sagittal reformats were then performed. For radiation dose reduction, the following was used: automated exposure control, adjustment of mA and/or kV according to patient size. COMPARISON: [facility], CT, CT KIDNEY URETER BLADDER (KUB), 06/05/2021, 11:29. [facility], CT, CT ABDOMEN PELVIS WO CON, 07/16/2019, 13:18. [facility], CR, XR ABDOMEN 1V, 02/14/2022, 12:31. [facility], CR, XR KUB, 01/01/2022, 17:06. [facility], CT, CT ABDOMEN PELVIS W CON, 05/23/2020, 17:39. FINDINGS: Image quality: Excellent. ABDOMEN: Lung bases: Lung bases are clear. Heart size is normal. Solid organs: Liver is normal in size. Gallbladder has been removed. Pancreas is normal in contours. Spleen is normal in size. No adrenal nodules. Kidneys are normal in size, without hydronephrosis. Simple appearing bilateral exophytic renal cysts are seen. There is a nonobstructing right-sided kidney stone seen, as on series 2, image 40 measuring 4 mm. Peritoneum and bowel: Unenhanced bowel loops demonstrate normal wall thickness and caliber. No free fluid or air. Colonic diverticulosis is seen, without findings of active diverticulitis. Nodes and vessels: No retroperitoneal or mesenteric adenopathy by size criteria. Aorta and inferior vena cava are normal in caliber. Miscellaneous: No ventral hernias. PELVIS: Genitourinary: Bladder wall thickness is normal. The prostate is small in size. Miscellaneous: No inguinal adenopathy. Mild bilateral fat containing inguinal hernias are seen. Bones: No suspicious bony lesions. No vertebral body compression fractures. Relatively prominent generalized degenerative changes are seen. The bones are osteopenic. Numerous bridging anterior osteophytes are seen. IMPRESSION: No significant bowel abnormality is identified. Colonic diverticulosis is seen, without findings of active diverticulitis. Abnormal bones, with osteopenia and numerous bridging anterior osteophytes. Please correlate with underlying potential diffuse idiopathic skeletal hyperostosis (DISH). For the osteopenia, please correlate with hormonal treatment in this patient with a known history of prostate cancer. Additional findings: Cholecystectomy 4 mm nonobstructing left-sided kidney stone Simple appearing exophytic bilateral renal cysts Mild bilateral fat containing inguinal hernias Dictated by: Tony Mckinney M.D. on 02/14/2022 at 17:16 Approved by: Tony Mckinney M.D. on 02/14/2022 at 17:23
--- NOTE | 2022-02-14 16:00 | ED_ITS ---
HPI - Nausea/Vomiting/Diarrhea <Audra Romero BOXCAR WEIGHER - Last Filed: 02/14/22 19:10> General Chief complaint: Nausea/Vomiting/Diarrhea Stated complaint: constipated x2 days Time Seen by Provider: 02/14/22 12:28 Source: patient Mode of arrival: Wheelchair History of Present Illness HPI Narrative: This is an 86-year-old gentleman with history of MRSA, diabetes type 2, UTIs, atrial fibrillation with anticoagulation on warfarin, kidney stones, prostate cancer, CHF, who presents to the emergency department today with constipation for the last 4 days without having a bowel movement, urinary frequency and urgency and states that his blood sugars have been starting to rise today which is abnormal for him. He waited 5 hours in the emergency department waiting room in a wheelchair, was tearful, requesting something to drink, without vomiting, fever or chills. An abdominal x-ray was obtained while he was in the waiting room wishes not show bowel obstruction. Patient has a history of UTIs and kidney stones and has seen Dr. Bauer in the past. Patient denies flank pain or flank tenderness, nausea, vomiting, chills or other symptom, he states he thinks he has a urinary tract infection, denies back pain, has not had recent antibiotics. States that for his constipation he has tried bisacodyl suppositories x2, MiraLax and none of this has been helpful yet. He states that he thinks that he feels like he can go but is unable. Related Data Home Medications Medication Instructions Recorded Confirmed levothyroxine 50 mcg tablet 50 mcg PO MOTUWETHFRSA 09/16/17 01/08/22 docusate sodium 100 mg PO DAILY 01/06/20 01/08/22 mecobalamin (vitamin B12) 1,000 1,000 mcg PO DAILY 05/26/21 01/08/22 mcg chewable tablet novolog flexpen See Rx Instructions .Route .COMPLEX 05/26/21 01/08/22 rosuvastatin 5 mg tablet 5 mg PO DAILY 05/26/21 01/08/22 sennosides 8.6 mg tablet (senna) 8.6 mg PO DAILY PRN Constipation 05/26/21 01/08/22 triamcinolone acetonide 0.1 % 1 applic topical DAILY PRN Rash 05/26/21 01/08/22 topical cream insulin glargine 100 unit/mL (3 40 unit SUBCUT BEDTIME 09/02/21 01/08/22 mL) subcutaneous pen (Lantus Solostar U-100 Insulin) warfarin 5 mg tablet 2.5 mg PO 4XW 09/02/21 01/08/22 warfarin 5 mg tablet (Coumadin) 5 mg PO 3XW 09/02/21 01/08/22 furosemide 20 mg tablet 20 mg PO BID 12/03/21 01/08/22 Previous Rx's Medication Instructions Recorded digoxin 125 mcg (0.125 mg) tablet 0.125 mg PO DAILY #30 tabs 10/01/19 midodrine 5 mg tablet 5 mg PO 0600,1200,1800 #15 tabs 10/01/19 mupirocin 2 % topical ointment 1 applic topical TID #15 grams 01/08/21 diclofenac sodium 1 % topical gel 2 g topical QID #100 grams 07/17/21 (Voltaren Arthritis Pain) lidocaine 5 % topical patch 1 patch topical DAILY PRN pain #15 07/17/21 ea hydrocodone 5 mg-acetaminophen 325 1 tab PO Q4H PRN pain #30 tabs 12/05/21 mg tablet cefuroxime axetil 500 mg tablet 500 mg PO BID 7 days #14 tabs 02/14/22 Allergies Allergy/AdvReac Type Severity Reaction Status Date / Time Penicillins Allergy Intermediate Rash Verified 02/14/22 11:08 Review of Systems <FRANK Tirado - Last Filed: 02/14/22 19:10> Review of Systems ROS Unobtainable: All systems reviewed & are unremarkable except as noted in HPI and below Patient History <FRANK Tirado - Last Filed: 02/14/22 19:10> Medical History Arthritis Cancer of left ear Chronic atrial fibrillation with RVR Community acquired pneumonia COVID-19 Diabetes E coli infection Hernia of abdominal cavity High blood pressure History of back pain Hypothyroidism Inguinal hernia bilateral, non-recurrent Kidney stones Male circumcision Melanoma Prostate cancer Right eye injury Warfarin anticoagulation Surgical History H/O colectomy H/O vasectomy History of throat surgery History of transurethral resection of prostate Hx of cholecystectomy Hx of circumcision Hx of prostate biopsy Status post bilateral hernia repair Family History Mother Coronary artery disease Father Diabetes mellitus Hearing impairment Spouse CVA (cerebrovascular accident due to intracerebral hemorrhage) Kidney stones Social History marital status: number of children: 4 household members: spouse Smoking Status: Never smoker alcohol intake: former Type(s) of exercise: none Smoking Status: Never smoker alcohol intake frequency: 0-2 drinks per day Substance Use Type: does not use Exam <FRANK Tirado - Last Filed: 02/14/22 19:10> Narrative Exam Narrative: Reviewed vitals signs and nursing notes. General: cooperative, comfortable, in no acute distress, well groomed HEENT: symmetrical facial expressions, moist mucous membranes Cardiovascular: regular rate and rhythm, no peripheral edema, warm extremities Respiratory: normal effort, able to speak in complete sentences, without wheezing, stridor, or abnormal breath sounds. No retractions or tachypnea. GI: abdomen soft, mildly distended, nontender to palpation, without masses, rebound tenderness or exquisite tenderness with exam, without flank pain, Rectal exam with stool in the rectal vault, firm but not hard, mildly broken up with my finger, suppository placed during exam patient planning for enema afterwards. MSK: moves all extremities, neurovascularly intact, no weakness, normal tone Skin: brisk capillary refill, without pallor or erythema Neuro: normal speech and cognition, A&O x3, ambulatory, clear speech Psych: mental status is grossly normal, congruent mood, normal affect, pleasant and cooperative Initial Vital Signs Initial Vital Signs: Vital Signs Temperature 97.5 F L 02/14/22 11:08 Pulse Rate 76 02/14/22 11:08 Respiratory Rate 24 02/14/22 11:08 Blood Pressure 118/76 02/14/22 11:08 Pulse Oximetry 100 02/14/22 11:08 Oxygen Delivery Method 02/14/22 11:08 <Kandi Yusuf DO - Last Filed: 02/16/22 12:25> Initial Vital Signs Initial Vital Signs: Vital Signs Temperature 97.5 F L 02/14/22 11:08 Pulse Rate 76 02/14/22 11:08 Respiratory Rate 24 02/14/22 11:08 Blood Pressure 118/76 02/14/22 11:08 Pulse Oximetry 100 02/14/22 11:08 Oxygen Delivery Method 02/14/22 11:08 Course <Audra Romero [facility] - Last Filed: 02/14/22 19:10> Orders Ordered: Discontinued Medications Bisacodyl (Bisacodyl 10 Mg Supp) 10 mg MT NOW ONE Stop: 02/14/22 12:29 Last Admin: 02/14/22 16:53 Dose: 10 mg Documented By: RB Bisacodyl (Bisacodyl 5 Mg Tablet) 10 mg PO NOW ONE Stop: 02/14/22 13:17 Last Admin: 02/14/22 16:53 Dose: 10 mg Documented By: RB Ceftriaxone Sodium (Ceftriaxone 2,000 Mg Vial) 1,000 mg IM NOW ONE Stop: 02/14/22 18:57 Last Admin: 02/14/22 19:20 Dose: 1,000 mg Documented By: RB Cefuroxime Axetil (Cefuroxime 250 Mg Tablet) 500 mg PO NOW ONE Stop: 02/14/22 17:19 Last Admin: 02/14/22 19:08 Dose: Not Given Documented By: RB Sodium Chloride (Normal Saline 0.9%) 1,000 mls @ 1,000 mls/hr IV BOLUS ONE Stop: 02/14/22 16:52 Last Admin: 02/14/22 16:29 Dose: Not Given Documented By: RB Lactulose (Lactulose 20 Gm/30 Ml Solution) 20 gm PO NOW ONE Stop: 02/14/22 15:45 Last Admin: 02/14/22 16:23 Dose: 20 gm Documented By: RB Lidocaine HCl (Lidocaine 1% (Pf) 5 Ml) 4.2 ml INJ NOW ONE Stop: 02/14/22 18:57 Last Admin: 02/14/22 19:20 Dose: 2.1 ml Documented By: RB Magnesium Citrate (Magnesium Citrate 300 Ml Solution) 300 ml PO NOW ONE Stop: 02/14/22 15:31 Last Admin: 02/14/22 16:29 Dose: Not Given Documented By: RB Phenazopyridine HCl (Phenazopyridine 100 Mg Tablet) 100 mg PO NOW ONE Stop: 02/14/22 17:19 Last Admin: 02/14/22 18:56 Dose: 100 mg Documented By: RB Polyethylene Glycol (Polyethylene Glycol 3350 17 Gm Powd.Pack) 17 gm PO NOW ONE Stop: 02/14/22 13:17 Last Admin: 02/14/22 16:53 Dose: 17 gm Documented By: RB Sodium Biphosphate/Sodium Phosphate (Fleets Enema) 1 each MT NOW ONE Stop: 02/14/22 13:17 Last Admin: 02/14/22 16:52 Dose: 1 each Documented By: RB Vital Signs Vital signs: Vital Signs - 8 hr 02/14/22 16:08 Temperature 97.7 F Pulse Rate 89 Respiratory Rate 24 Blood Pressure 154/69 H Pulse Oximetry 99 Oxygen Delivery Method Room Air <Kandi Yusuf DO - Last Filed: 02/16/22 12:25> Orders Ordered: Discontinued Medications Bisacodyl (Bisacodyl 10 Mg Supp) 10 mg MT NOW ONE Stop: 02/14/22 12:29 Last Admin: 02/14/22 16:53 Dose: 10 mg Documented By: RB Bisacodyl (Bisacodyl 5 Mg Tablet) 10 mg PO NOW ONE Stop: 02/14/22 13:17 Last Admin: 02/14/22 16:53 Dose: 10 mg Documented By: RB Ceftriaxone Sodium (Ceftriaxone 2,000 Mg Vial) 1,000 mg IM NOW ONE Stop: 02/14/22 18:57 Last Admin: 02/14/22 19:20 Dose: 1,000 mg Documented By: RB Cefuroxime Axetil (Cefuroxime 250 Mg Tablet) 500 mg PO NOW ONE Stop: 02/14/22 17:19 Last Admin: 02/14/22 19:08 Dose: Not Given Documented By: RB Sodium Chloride (Normal Saline 0.9%) 1,000 mls @ 1,000 mls/hr IV BOLUS ONE Stop: 02/14/22 16:52 Last Admin: 02/14/22 16:29 Dose: Not Given Documented By: RB Lactulose (Lactulose 20 Gm/30 Ml Solution) 20 gm PO NOW ONE Stop: 02/14/22 15:45 Last Admin: 02/14/22 16:23 Dose: 20 gm Documented By: RB Lidocaine HCl (Lidocaine 1% (Pf) 5 Ml) 4.2 ml INJ NOW ONE Stop: 02/14/22 18:57 Last Admin: 02/14/22 19:20 Dose: 2.1 ml Documented By: KARLIE Magnesium Citrate (Magnesium Citrate 300 Ml Solution) 300 ml PO NOW ONE Stop: 02/14/22 15:31 Last Admin: 02/14/22 16:29 Dose: Not Given Documented By: KARLIE Phenazopyridine HCl (Phenazopyridine 100 Mg Tablet) 100 mg PO NOW ONE Stop: 02/14/22 17:19 Last Admin: 02/14/22 18:56 Dose: 100 mg Documented By: KARLIE Polyethylene Glycol (Polyethylene Glycol 3350 17 Gm Powd.Pack) 17 gm PO NOW ONE Stop: 02/14/22 13:17 Last Admin: 02/14/22 16:53 Dose: 17 gm Documented By: KARLIE Sodium Biphosphate/Sodium Phosphate (Fleets Enema) 1 each MT NOW ONE Stop: 02/14/22 13:17 Last Admin: 02/14/22 16:52 Dose: 1 each Documented By: KARLIE Vital Signs Vital signs: Vital Signs - 8 hr 02/14/22 16:08 Temperature 97.7 F Pulse Rate 89 Respiratory Rate 24 Blood Pressure 154/69 H Pulse Oximetry 99 Oxygen Delivery Method Room Air MDM - Nausea/Vomiting/Diarrhea <Audra Romero, [facility] - Last Filed: 02/14/22 19:10> Lab Data Result diagrams: 02/14/22 17:21 02/14/22 17:21 Labs: Lab Results 02/14/22 02/14/22 02/14/22 Range/Units 15:57 16:00 17:21 WBC 6.7 (4.5-11.0) X10^3/uL RBC 3.77 L (4.5-5.9) X10^6/uL Hgb 11.2 L (13.5-17.5) g/dL Hct 33.1 L (41-53) % MCV 87.7 (80-100) fL MCH 29.7 (26-34) PG MCHC 33.9 (30-36) % RDW 14.3 (11.6-14.8) % Plt Count 199 (150-400) X10^3/uL Neut % (Auto) 69.8 (50-75) % Lymph % (Auto) 20.0 L (25-40) % Osborne % (Auto) 7.3 (3-14) % Eos % (Auto) 2.1 (2-4) % Baso % (Auto) 0.8 (0-2) % Neut # (Auto) 4600 (7884-9934) /uL Lymph # (Auto) 1300 (8855-8877) /uL Osborne # (Auto) 500 (0-900) /uL Eos # (Auto) 100 (0-450) /uL Baso # (Auto) 100 (0-100) /uL PT (10.1-12.7) SECONDS INR (0.9-1.3) Sodium (137-145) mmol/L Potassium (3.4-5.1) mmol/L Chloride (98-107) mmol/L Carbon Dioxide (22-32) mmol/L BUN (9-20) mg/dL Creatinine (0.66-1.25) mg/dL Estimated GFR (>60) mL/min BUN/Creatinine Ratio (6-22) Glucose (80-110) mg/dL Lactate (0.7-2.1) mmol/L Calcium (8.4-10.2) mg/dL Total Bilirubin (0.2-1.3) mg/dL AST (17-59) IU/L ALT (<50) IU/L Alkaline Phosphatase (38-126) U/L NT-Pro-B Natriuret Pep (<450) pg/mL Total Protein (6.3-8.2) g/dL Albumin (3.5-5.0) g/dL Globulin (1.7-4.1) g/dL Albumin/Globulin Ratio (1.0-2.8) Procalcitonin (<0.5) ng/mL Urine Color Yellow Urine Appearance Clear Urine pH 5.0 (4.5-8.0) Ur Specific [place] 1.025 (1.000-1.035) Urine Protein 1+ H (Negative) Urine Glucose (UA) Trace H (Negative) g/dL Urine Ketones Negative (NEGATIVE) Urine Occult Blood Trace-lysed (Negative) Urine Nitrate Negative (Negative) Urine Bilirubin Negative (NEGATIVE) Urine Urobilinogen 1.0 (0.2) E.U./dL Ur Leukocyte Esterase Trace H (NEGATIVE) Urine RBC 1-5/hpf (0-5/HPF) Urine WBC 1-5/hpf (0-5/HPF) Amorphous Sediment 1+ Urine Bacteria Occasional (0-1) (None) Hyaline Casts 1-5/lpf (None) Urine Mucus 1+ H (Negative) Ur Culture Indicated? Specimen cultured SARS-CoV-2 (PCR) Negative (Negative) Influenza A (RT-PCR) Flu a negative (NEGATIVE) Influenza B (RT-PCR) Flu b negative (NEGATIVE) RSV (PCR) Negative (Negative) 02/14/22 02/14/22 02/14/22 Range/Units 17:21 17:21 17:21 WBC (4.5-11.0) X10^3/uL RBC (4.5-5.9) X10^6/uL Hgb (13.5-17.5) g/dL Hct (41-53) % MCV (80-100) fL MCH (26-34) PG MCHC (30-36) % RDW (11.6-14.8) % Plt Count (150-400) X10^3/uL Neut % (Auto) (50-75) % Lymph % (Auto) (25-40) % Osborne % (Auto) (3-14) % Eos % (Auto) (2-4) % Baso % (Auto) (0-2) % Neut # (Auto) (3604-1672) /uL Lymph # (Auto) (0256-9902) /uL Osborne # (Auto) (0-900) /uL Eos # (Auto) (0-450) /uL Baso # (Auto) (0-100) /uL PT 32.6 H (10.1-12.7) SECONDS INR 2.8 H (0.9-1.3) Sodium 139 (137-145) mmol/L Potassium 4.8 (3.4-5.1) mmol/L Chloride 105 (98-107) mmol/L Carbon Dioxide 28 (22-32) mmol/L BUN 30 H (9-20) mg/dL Creatinine 1.83 H (0.66-1.25) mg/dL Estimated GFR 35 L (>60) mL/min BUN/Creatinine Ratio 16.4 (6-22) Glucose 271 H (80-110) mg/dL Lactate 1.3 (0.7-2.1) mmol/L Calcium 8.7 (8.4-10.2) mg/dL Total Bilirubin 0.9 (0.2-1.3) mg/dL AST 32 (17-59) IU/L ALT 22 (<50) IU/L Alkaline Phosphatase 114 (38-126) U/L NT-Pro-B Natriuret Pep (<450) pg/mL Total Protein 6.8 (6.3-8.2) g/dL Albumin 3.8 (3.5-5.0) g/dL Globulin 3.0 (1.7-4.1) g/dL Albumin/Globulin Ratio 1.3 (1.0-2.8) Procalcitonin 0.10 (<0.5) ng/mL Urine Color Urine Appearance Urine pH (4.5-8.0) Ur Specific [place] (1.000-1.035) Urine Protein (Negative) Urine Glucose (UA) (Negative) g/dL Urine Ketones (NEGATIVE) Urine Occult Blood (Negative) Urine Nitrate (Negative) Urine Bilirubin (NEGATIVE) Urine Urobilinogen (0.2) E.U./dL Ur Leukocyte Esterase (NEGATIVE) Urine RBC (0-5/HPF) Urine WBC (0-5/HPF) Amorphous Sediment Urine Bacteria (None) Hyaline Casts (None) Urine Mucus (Negative) Ur Culture Indicated? SARS-CoV-2 (PCR) (Negative) Influenza A (RT-PCR) (NEGATIVE) Influenza B (RT-PCR) (NEGATIVE) RSV (PCR) (Negative) 02/14/22 Range/Units 17:21 WBC (4.5-11.0) X10^3/uL RBC (4.5-5.9) X10^6/uL Hgb (13.5-17.5) g/dL Hct (41-53) % MCV (80-100) fL MCH (26-34) PG MCHC (30-36) % RDW (11.6-14.8) % Plt Count (150-400) X10^3/uL Neut % (Auto) (50-75) % Lymph % (Auto) (25-40) % Osborne % (Auto) (3-14) % Eos % (Auto) (2-4) % Baso % (Auto) (0-2) % Neut # (Auto) (4688-7023) /uL Lymph # (Auto) (9191-0893) /uL Osborne # (Auto) (0-900) /uL Eos # (Auto) (0-450) /uL Baso # (Auto) (0-100) /uL PT (10.1-12.7) SECONDS INR (0.9-1.3) Sodium (137-145) mmol/L Potassium (3.4-5.1) mmol/L Chloride (98-107) mmol/L Carbon Dioxide (22-32) mmol/L BUN (9-20) mg/dL Creatinine (0.66-1.25) mg/dL Estimated GFR (>60) mL/min BUN/Creatinine Ratio (6-22) Glucose (80-110) mg/dL Lactate (0.7-2.1) mmol/L Calcium (8.4-10.2) mg/dL Total Bilirubin (0.2-1.3) mg/dL AST (17-59) IU/L ALT (<50) IU/L Alkaline Phosphatase (38-126) U/L NT-Pro-B Natriuret Pep 1920 H (<450) pg/mL Total Protein (6.3-8.2) g/dL Albumin (3.5-5.0) g/dL Globulin (1.7-4.1) g/dL Albumin/Globulin Ratio (1.0-2.8) Procalcitonin (<0.5) ng/mL Urine Color Urine Appearance Urine pH (4.5-8.0) Ur Specific [place] (1.000-1.035) Urine Protein (Negative) Urine Glucose (UA) (Negative) g/dL Urine Ketones (NEGATIVE) Urine Occult Blood (Negative) Urine Nitrate (Negative) Urine Bilirubin (NEGATIVE) Urine Urobilinogen (0.2) E.U./dL Ur Leukocyte Esterase (NEGATIVE) Urine RBC (0-5/HPF) Urine WBC (0-5/HPF) Amorphous Sediment Urine Bacteria (None) Hyaline Casts (None) Urine Mucus (Negative) Ur Culture Indicated? SARS-CoV-2 (PCR) (Negative) Influenza A (RT-PCR) (NEGATIVE) Influenza B (RT-PCR) (NEGATIVE) RSV (PCR) (Negative) Point of Care Testing Glucose POC 227 Imaging Data Abdominal x-ray: Radiologist's Impression: PROCEDURE:? XR ABDOMEN 1V ? INDICATIONS:? bowel obstruction? ? TECHNIQUE:? One view of the abdomen acquired.? ? COMPARISON:? None. ? FINDINGS:? ? Surgical changes and devices:? None.? ? Bowel:? Bowel gas pattern is normal.? ? Soft tissues:? No suspicious abdominal calcifications.? Visualized solid organ contours appear normal in size.? ? Bones:? No suspicious bony lesions.? ? IMPRESSION:? No acute finding.? Nonobstructive bowel gas pattern. ? ? Dictated by: Franki Hernandez M.D. on 02/14/2022 at 13:11 ? ? Approved by: Franki Hernandez M.D. on 02/14/2022 at 13:11 ? CT scan - abdomen/pelvis: Radiologist's Impression: PROCEDURE:? CT ABDOMEN PELVIS WO CON ? INDICATIONS:? c/f bowel obstruction v/s colitis/diverticulitis ? TECHNIQUE:? Noncontrast 5 mm thick sections acquired from the diaphragms to the symphysis.? 5 mm coronal and sagittal reformats were then performed.? For radiation dose reduction, the following was used:? automated exposure control, adjustment of mA and/or kV according to patient size.? ? COMPARISON:? [facility], CT, CT KIDNEY URETER BLADDER (KUB), 06/05/2021, 11:29.? [facility], CT, CT ABDOMEN PELVIS WO CON, 07/16/2019, 13:18.? [facility], CR, XR ABDOMEN 1V, 02/14/2022, 12:31.? [facility], CR, XR KUB, 01/01/2022, 17:06.? [facility], CT, CT ABDOMEN PELVIS W CON, 05/23/2020, 17:39. ? FINDINGS:? Image quality:? Excellent.? ? ABDOMEN:? Lung bases:? Lung bases are clear.? Heart size is normal.? ? Solid organs:? Liver is normal in size.? Gallbladder has been removed.? Pancreas is normal in contours.? Spleen is normal in size.? No adrenal nodules.? ? Kidneys are normal in size, without hydronephrosis.? Simple appearing bilateral exophytic renal cysts are seen.? There is a nonobstructing right-sided kidney stone seen, as on series 2, image 40 measuring 4 mm.? ? Peritoneum and bowel:? Unenhanced bowel loops demonstrate normal wall thickness and caliber.? No free fluid or air.? Colonic diverticulosis is seen, without findings of active diverticulitis. ? Nodes and vessels:? No retroperitoneal or mesenteric adenopathy by size criteria.? Aorta and inferior vena cava are normal in caliber.? ? Miscellaneous:? No ventral hernias.? ? ? PELVIS:? Genitourinary:? Bladder wall thickness is normal.? The prostate is small in size. ? Miscellaneous:? No inguinal adenopathy.? Mild bilateral fat containing inguinal hernias are seen. ? Bones:? No suspicious bony lesions.? No vertebral body compression fractures.? Relatively prominent generalized degenerative changes are seen.? The bones are osteopenic.? Numerous bridging anterior osteophytes are seen. ? ? IMPRESSION:? No significant bowel abnormality is identified.? ? Colonic diverticulosis is seen, without findings of active diverticulitis. ? Abnormal bones, with osteopenia and numerous bridging anterior osteophytes.? Please correlate with underlying potential diffuse idiopathic skeletal hyperostosis (DISH).? For the osteopenia, please correlate with hormonal treatment in this patient with a known history of prostate cancer. ? ? Additional findings: Cholecystectomy 4 mm nonobstructing left-sided kidney stone Simple appearing exophytic bilateral renal cysts Mild bilateral fat containing inguinal hernias ? Dictated by: Tony Mckinney M.D. on 02/14/2022 at 17:16 ? ? Approved by: Tony Mckinney M.D. on 02/14/2022 at 17:23 ? MDM Narrative Medical decision making narrative: This is an 86-year-old gentleman who presents to the emergency department with constipation for 4 days, dysuria, urinary frequency and urgency with history of renal stones and UTIs and has seen Dr. Bauer in the past. Patient is diabetic, history of atrial fibrillation is anticoagulated on warfarin. He unfortunately waited in the waiting room for 5 hours today, when he came back his care was started. Patient has been urinating frequently, approximally every 20 minutes since he has been back, urine shows trace of leukocyte esterase, RBCs and WBCs b ut only small amount, occasional bacteria on microscopy, urine culture is pending. Lab work does not show leukocytosis or worsened anemia, his INR has increased from 2.2-2.8 most recently when compared to his labs on 01/22/2022, his creatinine has worsened since then as well, last creatinine was 1.4 with other creatinines I between 1.4 and 1.8. Patient's procalcitonin was negative, BNP is elevated at 1920 but patient has history of CHF and this is improved from prior values. Abdominal x-ray was ordered at 12:30 today and completed does not show bowel obstruction, patient was given a bisacodyl suppository and on my rectal exam he had stool in his rectal vault, this was broken up and as sup pository was placed. Patient later had enema and had a large bowel movement and was relieved of his abdominal distention and discomfort. On his abdomen/pelvis CT patient shows history of cholecystectomy, 4 mm nonobstructing left-sided kidney stone which patient has history of renal stones, simple appearing bilateral renal cysts and bilateral fat containing inguinal hernias. Colonic diverticulosis is seen without diverticulitis. Patient wishes to go home, he had multiple IV sticks which were unsuccessful placing an IV. He agreed to have IM injection of ceftriaxone, he received 1000 mg in total of ceftriaxone in 2 IM injections. He was prescribed cefuroxime as the hospital did not have any of this medication and house. Encouraged to follow-up with Dr. Bauer if he has ongoing urinary symptoms, and to follow-up with Dr. Figueroa for his RAFFAELE, and chronic illness comorbidities for stability early next week. No peritoneal signs on abdominal exam. Patient remains p.o. tolerant. Serial abdominal exam without increase in abdominal pain. Given history and exam, low suspicion for acute abdominal process, such as acute cholecystitis, pancreatitis, perforated viscus, atypical appendicitis, colitis, diverticulitis or torsion. Extensive conversation about ER return precautions and need for close follow-up. Patient is appropriate and amenable to discharge home. Vital signs are stable on repeat examination is unremarkable. Patient has been informed of results. Patient has been given strict return to ER precautions for any new or worsening symptoms. Patient understands to follow up closely with outpatient providers as instructed. Patient understands plan and agrees to discharge home. All questions and concerns answered at this time. <Kandi Yusuf DO - Last Filed: 02/16/22 12:25> Lab Data Labs: Lab Results 12/03/22 12/03/22 12/03/22 Range/Units 15:57 16:00 17:21 WBC 6.7 (4.5-11.0) X10^3/uL RBC 3.77 L (4.5-5.9) X10^6/uL Hgb 11.2 L (13.5-17.5) g/dL Hct 33.1 L (41-53) % MCV 87.7 (80-100) fL MCH 29.7 (26-34) PG MCHC 33.9 (30-36) % RDW 14.3 (11.6-14.8) % Plt Count 199 (150-400) X10^3/uL Neut % (Auto) 69.8 (50-75) % Lymph % (Auto) 20.0 L (25-40) % Osborne % (Auto) 7.3 (3-14) % Eos % (Auto) 2.1 (2-4) % Baso % (Auto) 0.8 (0-2) % Neut # (Auto) 4600 (7426-0362) /uL Lymph # (Auto) 1300 (2068-4299) /uL Osborne # (Auto) 500 (0-900) /uL Eos # (Auto) 100 (0-450) /uL Baso # (Auto) 100 (0-100) /uL PT (10.1-12.7) SECONDS INR (0.9-1.3) Sodium (137-145) mmol/L Potassium (3.4-5.1) mmol/L Chloride (98-107) mmol/L Carbon Dioxide (22-32) mmol/L BUN (9-20) mg/dL Creatinine (0.66-1.25) mg/dL Estimated GFR (>60) mL/min BUN/Creatinine Ratio (6-22) Glucose (80-110) mg/dL Lactate (0.7-2.1) mmol/L Calcium (8.4-10.2) mg/dL Total Bilirubin (0.2-1.3) mg/dL AST (17-59) IU/L ALT (<50) IU/L Alkaline Phosphatase (38-126) U/L NT-Pro-B Natriuret Pep (<450) pg/mL Total Protein (6.3-8.2) g/dL Albumin (3.5-5.0) g/dL Globulin (1.7-4.1) g/dL Albumin/Globulin Ratio (1.0-2.8) Procalcitonin (<0.5) ng/mL Urine Color Yellow Urine Appearance Clear Urine pH 5.0 (4.5-8.0) Ur Specific [place] 1.025 (1.000-1.035) Urine Protein 1+ H (Negative) Urine Glucose (UA) Trace H (Negative) g/dL Urine Ketones Negative (NEGATIVE) Urine Occult Blood Trace-lysed (Negative) Urine Nitrate Negative (Negative) Urine Bilirubin Negative (NEGATIVE) Urine Urobilinogen 1.0 (0.2) E.U./dL Ur Leukocyte Esterase Trace H (NEGATIVE) Urine RBC 1-5/hpf (0-5/HPF) Urine WBC 1-5/hpf (0-5/HPF) Amorphous Sediment 1+ Urine Bacteria Occasional (0-1) (None) Hyaline Casts 1-5/lpf (None) Urine Mucus 1+ H (Negative) Ur Culture Indicated? Specimen cultured SARS-CoV-2 (PCR) Negative (Negative) Influenza A (RT-PCR) Flu a negative (NEGATIVE) Influenza B (RT-PCR) Flu b negative (NEGATIVE) RSV (PCR) Negative (Negative) 02/14/22 02/14/22 02/14/22 Range/Units 17:21 17:21 17:21 WBC (4.5-11.0) X10^3/uL RBC (4.5-5.9) X10^6/uL Hgb (13.5-17.5) g/dL Hct (41-53) % MCV (80-100) fL MCH (26-34) PG MCHC (30-36) % RDW (11.6-14.8) % Plt Count (150-400) X10^3/uL Neut % (Auto) (50-75) % Lymph % (Auto) (25-40) % [place] % (Auto) (3-14) % Eos % (Auto) (2-4) % Baso % (Auto) (0-2) % Neut # (Auto) (2420-1688) /uL Lymph # (Auto) (9139-6163) /uL [place] # (Auto) (0-900) /uL Eos # (Auto) (0-450) /uL Baso # (Auto) (0-100) /uL PT 32.6 H (10.1-12.7) SECONDS INR 2.8 H (0.9-1.3) Sodium 139 (137-145) mmol/L Potassium 4.8 (3.4-5.1) mmol/L Chloride 105 (98-107) mmol/L Carbon Dioxide 28 (22-32) mmol/L BUN 30 H (9-20) mg/dL Creatinine 1.83 H (0.66-1.25) mg/dL Estimated GFR 35 L (>60) mL/min BUN/Creatinine Ratio 16.4 (6-22) Glucose 271 H (80-110) mg/dL Lactate 1.3 (0.7-2.1) mmol/L Calcium 8.7 (8.4-10.2) mg/dL Total Bilirubin 0.9 (0.2-1.3) mg/dL AST 32 (17-59) IU/L ALT 22 (<50) IU/L Alkaline Phosphatase 114 (38-126) U/L NT-Pro-B Natriuret Pep (<450) pg/mL Total Protein 6.8 (6.3-8.2) g/dL Albumin 3.8 (3.5-5.0) g/dL Globulin 3.0 (1.7-4.1) g/dL Albumin/Globulin Ratio 1.3 (1.0-2.8) Procalcitonin 0.10 (<0.5) ng/mL Urine Color Urine Appearance Urine pH (4.5-8.0) Ur Specific [place] (1.000-1.035) Urine Protein (Negative) Urine Glucose (UA) (Negative) g/dL Urine Ketones (NEGATIVE) Urine Occult Blood (Negative) Urine Nitrate (Negative) Urine Bilirubin (NEGATIVE) Urine Urobilinogen (0.2) E.U./dL Ur Leukocyte Esterase (NEGATIVE) Urine RBC (0-5/HPF) Urine WBC (0-5/HPF) Amorphous Sediment Urine Bacteria (None) Hyaline Casts (None) Urine Mucus (Negative) Ur Culture Indicated? SARS-CoV-2 (PCR) (Negative) Influenza A (RT-PCR) (NEGATIVE) Influenza B (RT-PCR) (NEGATIVE) RSV (PCR) (Negative) 02/14/22 Range/Units 17:21 WBC (4.5-11.0) X10^3/uL RBC (4.5-5.9) X10^6/uL Hgb (13.5-17.5) g/dL Hct (41-53) % MCV (80-100) fL MCH (26-34) PG MCHC (30-36) % RDW (11.6-14.8) % Plt Count (150-400) X10^3/uL Neut % (Auto) (50-75) % Lymph % (Auto) (25-40) % [place] % (Auto) (3-14) % Eos % (Auto) (2-4) % Baso % (Auto) (0-2) % Neut # (Auto) (2429-9163) /uL Lymph # (Auto) (9521-2068) /uL [place] # (Auto) (0-900) /uL Eos # (Auto) (0-450) /uL Baso # (Auto) (0-100) /uL PT (10.1-12.7) SECONDS INR (0.9-1.3) Sodium (137-145) mmol/L Potassium (3.4-5.1) mmol/L Chloride (98-107) mmol/L Carbon Dioxide (22-32) mmol/L BUN (9-20) mg/dL Creatinine (0.66-1.25) mg/dL Estimated GFR (>60) mL/min BUN/Creatinine Ratio (6-22) Glucose (80-110) mg/dL Lactate (0.7-2.1) mmol/L Calcium (8.4-10.2) mg/dL Total Bilirubin (0.2-1.3) mg/dL AST (17-59) IU/L ALT (<50) IU/L Alkaline Phosphatase (38-126) U/L NT-Pro-B Natriuret Pep 1920 H (<450) pg/mL Total Protein (6.3-8.2) g/dL Albumin (3.5-5.0) g/dL Globulin (1.7-4.1) g/dL Albumin/Globulin Ratio (1.0-2.8) Procalcitonin (<0.5) ng/mL Urine Color Urine Appearance Urine pH (4.5-8.0) Ur Specific [place] (1.000-1.035) Urine Protein (Negative) Urine Glucose (UA) (Negative) g/dL Urine Ketones (NEGATIVE) Urine Occult Blood (Negative) Urine Nitrate (Negative) Urine Bilirubin (NEGATIVE) Urine Urobilinogen (0.2) E.U./dL Ur Leukocyte Esterase (NEGATIVE) Urine RBC (0-5/HPF) Urine WBC (0-5/HPF) Amorphous Sediment Urine Bacteria (None) Hyaline Casts (None) Urine Mucus (Negative) Ur Culture Indicated? SARS-CoV-2 (PCR) (Negative) Influenza A (RT-PCR) (NEGATIVE) Influenza B (RT-PCR) (NEGATIVE) RSV (PCR) (Negative) Point of Care Testing Glucose POC 227 Discharge Plan Departure Patient Disposition: Home Clinical Impression: History of diabetes mellitus, RAFFAELE (acute kidney injury), Left renal stone Acute cystitis Qualifiers: Hematuria presence: with hematuria Qualified Code(s): N30.01 - Acute cystitis with hematuria Constipation Qualifiers: Constipation type: slow transit constipation Qualified Code(s): K59.01 - Slow transit constipation Instructions: Kidney Stones -- Adult, Acute Kidney Injury, DI for Urinary Tract Infection (UTI), DI for Constipation Activity Restrictions/Additional Instructions: *You have been diagnosed with constipation which has improved, a 4 mm left-sided kidney stone without obstruction, a small amount of bacteria in your urine concerning for infection since you have frequency, urgency and history of UTIs. Please take antibiotics as prescribed, please follow-up with Dr. Figueroa for recheck, your creatinine has worsened today which is likely secondary to waiting for a long time in the waiting room, dehydration and or fluid overload. Please continue taking your regular medications as prescribed. Please follow-up with Dr. Bauer if you have ongoing dysuria or urinary symptoms. Please stay hydrated, return for worsening symptoms, and please follow-up with Dr. Figueroa next week for recheck. I will send everybody a copy of this note and encourage you to feel better soon. You do not need to pickle processor your prescription tonight, you can start it tomorrow since you received 2 injections of ceftriaxone today. Please use MiraLax daily, morning and night until you have consistent soft stools. *What to do: *Please continue to take your regular medications as directed. [x ] New medication prescriptions sent to your pharmacy: [[facility] ] [ ] New medication written as a paper prescription [ ] No new medications given *Please follow up with your primary care provider in 2-3 days, call for an appointment. Let them know you were seen in the Emergency Department and that we asked that you be seen for follow-up. We will electronically transmit a record of today's note if your PCP is in our system *If you do not have a primary care provider please contact [phone] to establish care with one of the [facility] primary care providers. *Return to Emergency Department if you should have any new, worsening, or concerning symptoms, such as [fever greater than 101F, chills, worsening pain, persistent vomiting or other bothersome symptoms]. Prescriptions: New cefuroxime axetil 500 mg tablet 500 mg PO BID 7 Days Qty: 14 0RF No Action mupirocin 2 % ointment 1 applic topical TID Qty: 15 0RF midodrine 5 mg Tablet 5 mg PO 0600,1200,1800 Qty: 15 0RF Rx Instructions: Pt states his doctor took him off of this for a while; hes not sure why Takes once daily in am digoxin 125 mcg (0.125 mg) Tablet 0.125 mg PO DAILY Qty: 30 0RF lidocaine 5 % adhesive patch,medicated 1 patch topical DAILY PRN (Reason: pain) Qty: 15 0RF Rx Instructions: leave on most painful area for up to 12 hrs diclofenac sodium [Voltaren Arthritis Pain] 1 % gel 2 g topical QID Qty: 100 0RF Rx Instructions: apply to single elbow, wrist or hand; for hand includes palm/fingers/back of hand furosemide 20 mg tablet 20 mg PO BID hydrocodone-acetaminophen 5-325 mg tablet 1 tab PO Q4H PRN (Reason: pain) Qty: 30 0RF Rx Instructions: Do not take at the same time as the methocarbamol, they are sedating together and I do not want you to fall. levothyroxine 50 mcg Tablet 50 mcg PO MOTUWETHFRSA Rx Instructions: I tablet by mouth daily, except 2 tablets by mouth on Sundays warfarin [Coumadin] 5 mg tablet 5 mg PO 3XW docusate sodium 100 mg 100 mg PO DAILY warfarin 5 mg tablet 2.5 mg PO 4XW Rx Instructions: Tues, Thurs, Sat, Sun novolog flexpen See Rx Instructions .ROUTE .COMPLEX Rx Instructions: 12 units at breakfast, 9 units at lunch, and 15 units at dinner. rosuvastatin 5 mg tablet 5 mg PO DAILY sennosides [senna] 8.6 mg tablet 8.6 mg PO DAILY PRN (Reason: Constipation) triamcinolone acetonide 0.1 % cream 1 applic topical DAILY PRN (Reason: Rash) mecobalamin (vitamin B12) 1,000 mcg tablet,chewable 1,000 mcg PO DAILY Lantus Solostar U-100 Insulin 100 unit/mL (3 mL) insulin pen 40 unit SUBCUT BEDTIME Referrals: Anson Bauer MD [Physician] - Lo Figueora MD [Primary Care Provider] - Visit Report Forms: Patient Portal/API <Kandi Yusuf DO - Last Filed: 02/16/22 12:25> Cosign ED Attending Cosignature Attestation: I was immediately available in the department for consultation. Documentation has been reviewed.
[2022-02-14 16:08] VITALS: BP 154/69; PULSE 89; RESP 24; TEMP 36.5; O2SAT 99
[2022-02-14] MEDS: LACTULOSE 20 GM/30 ML SOLUTION PO (16:23)
[2022-02-14 16:42] LABS: Influenza A - CEPHEID Flu A NEGATIVE (NEGATIVE); Influenza B - CEPHEID Flu B NEGATIVE (NEGATIVE); Respiratory Syncytial Virus Negative (Negative)
[2022-02-14] MEDS: FLEETS ENEMA 1 EACH PR (16:52)
[2022-02-14] MEDS: BISACODYL 5 MG TABLET 10 MG PO (16:53)
[2022-02-14] MEDS: BISACODYL 10 MG SUPP PR (16:53)
[2022-02-14] MEDS: polyethylene glycoL 3350 17 GM POWD.PACK PO (16:53)
[2022-02-14 17:11] LABS: Appearance Urine UA CLEAR; Bilirubin Urine UA NEGATIVE (NEGATIVE); Color Urine UA YELLOW; Glucose Urine UA TRACE g/dL (Negative); Ketones Urine UA NEGATIVE (NEGATIVE); Leukocyte Esterase Urine UA TRACE (NEGATIVE); Nitrite Urine UA NEGATIVE (Negative); Occult Blood Urine UA TRACE-LYSED (Negative); Protein Urine UA 1+ (Negative); Specific Gravity Urine UA 1.025 (1.000-1.035)
[2022-02-14 17:13] LABS: COVID-19 CEPHEID 4-PLEX PCR Negative (Negative)
[2022-02-14 17:22] LABS: Amorphous Sediment Urine 1+; Bacteria Urine Occasional (0-1); Culture Indicated Urine Specimen Cultured; Hyaline Casts Urine 1-5/LPF; Mucus Urine 1+ (Negative); RBC Urine 1-5/HPF (0-5/HPF); WBC Urine 1-5/HPF (0-5/HPF)
[2022-02-14 17:39] LABS: Add Manual Diff / Slide Review NO; Basophils Absolute Auto 100 /uL (0-100); Basophils Percent Auto 0.8 % (0-2); Eosinophils Absolute Auto 100 /uL (0-450); Eosinophils Percent Auto 2.1 % (2-4); Hematocrit 33.1 % (41-53); Hemoglobin 11.2 g/dL (13.5-17.5); Lymphocytes Absolute Auto 1300 /uL (1100-4500); Mean Corpuscular HGB Conc 33.9 % (30-36); Mean Corpuscular Hemoglobin 29.7 PG (26-34); Mean Corpuscular Volume 87.7 fL (80-100); Monocytes Absolute Auto 500 /uL (0-900); Monocytes Percent Auto 7.3 % (3-14); Neutrophils Absolute Auto 4600 /uL (1500-7000); Neutrophils Percent Auto 69.8 % (50-75); Platelet Count 199 X10^3/uL (150-400); Red Blood Cell Count 3.77 X10^6/uL (4.5-5.9); Red Cell Distribution Width 14.3 % (11.6-14.8); White Blood Cell Count 6.7 X10^3/uL (4.5-11.0)
[2022-02-14 18:00] LABS: INR 2.8 (0.9-1.3); Prothrombin Time 32.6 SECONDS (10.1-12.7)
[2022-02-14 18:04] LABS: Lactate (Lactic Acid) 1.3 mmol/L (0.7-2.1)
[2022-02-14 18:07] LABS: Alanine Aminotransferase 22 IU/L (<50); Albumin 3.8 g/dL (3.5-5.0); Albumin Globulin Ratio 1.3 (1.0-2.8); Alkaline Phosphatase 114 U/L (38-126); Aspartate Aminotransferase 32 IU/L (17-59); BUN Creatinine Ratio 16.4 (6-22); Bilirubin Total 0.9 mg/dL (0.2-1.3); Blood Urea Nitrogen 30 mg/dL (9-20); Calcium 8.7 mg/dL (8.4-10.2); Carbon Dioxide 28 mmol/L (22-32); Chloride 105 mmol/L (98-107); Estimated Glomerular Filt Rate 35 mL/min (>60); Glucose 271 mg/dL (80-110); HEMOLYSIS < 15 (0-50); Potassium 4.8 mmol/L (3.4-5.1); Sodium 139 mmol/L (137-145); Total Protein 6.8 g/dL (6.3-8.2)
[2022-02-14 18:14] LABS: NT-proBNP (BNP-Adult 18+) 1920 pg/mL (<450)
[2022-02-14] MEDS: PHENAZOPYRIDINE 100 MG TABLET PO (18:56)
[2022-02-14] MEDS: LIDOCAINE 1% (PF) 5 ML 4.2 ML INJ (19:20)
[2022-02-14] MEDS: cefTRIAXone 2,000 MG VIAL 1000 MG IM (19:20)
[2022-02-14 19:34] VITALS: BP 135/71; PULSE 63; RESP 18; TEMP 36.6; O2SAT 100
== END 2022-02-14 19:36 | disposition home or self-care (01) ==
PROVIDERS: Emergency Provider Nurse Practitioner Critical Care Medicine; PCP Internal Medicine
DX: N30.01 Acute cystitis with hematuria (principal); K59.01 Slow transit constipation; N17.9 Acute kidney failure, unspecified; N20.0 Calculus of kidney; I48.20 Chronic atrial fibrillation, unspecified; Z79.01 Long term (current) use of anticoagulants; E11.9 Type 2 diabetes mellitus without complications; Z20.822 Contact with and (suspected) exposure to COVID-19; Z79.899 Other long term (current) drug therapy; R79.89 Other specified abnormal findings of blood chemistry
CPT/HCPCS: 0241U; 36415; 74018; 74176; 80053; 81001; 82962; 83605; 83880; 84145; 85025; 85610; 87086; 96372; 99284; J0696

== ENCOUNTER → 2022-04-07 17:26 | Outpatient (CLI) | payer OTHER, SELFPAY ==
[2022-03-04 12:58] VITALS: BMI 32.4
--- NOTE | 2022-04-07 17:27 | DI.RAD.S_ITS ---
PROCEDURE: XR KUB INDICATIONS: Possible right kidney stone TECHNIQUE: One view of the abdomen acquired. COMPARISON: [facility], CT, CT ABDOMEN PELVIS WO CON, 02/14/2022, 16:17. [facility], CR, XR KUB, 01/01/2022, 17:06. [facility], CR, XR KUB, 10/06/2021, 13:13. FINDINGS: Cholecystectomy clips project over the right upper quadrant of the abdomen. A large amount of stool is present in the colon. Prominent gas-filled loops of small bowel project over the mid abdomen, nonspecific. A 4 mm calcification projects over the expected position of the right kidney that may correspond to the right renal stone present on the prior CT. Multiple small calcifications project over the expected position of the left kidney. IMPRESSION: A 4 mm calcification projects over the expected position of the right kidney that may correspond to the right renal stone present on the prior CT. Multiple small calcifications project over the expected position of the left kidney, indeterminate for renal stones, ingested material, or other nonspecific soft tissue calcification. CT KUB might be helpful for further evaluation if indicated. Dictated by: Miller Christopher M.D. on 04/08/2022 at 8:26 Approved by: Miller Christopher M.D. on 04/08/2022 at 8:31
[2022-04-07 18:48] LABS: Prostate Specific Antigen < 0.064 ng/mL (0.10-4.00)
== END ==
PROVIDERS: PCP Internal Medicine; Referring Provider Urology; Visit Provider Urology
DX: C61 Malignant neoplasm of prostate (principal); N20.0 Calculus of kidney
CPT/HCPCS: 36415; 74018; 84153

== ENCOUNTER 2022-05-03 23:04 | Emergency (ER) | payer OTHER, SELFPAY ==
[2022-04-16 16:09] VITALS: BMI 32.4
[2022-05-03 23:13] VITALS: BP 161/88; PULSE 81; RESP 16; TEMP 36.6; O2SAT 97; BMI 32.5
[2022-05-04 00:10] LABS: Add Manual Diff / Slide Review NO; Basophils Absolute Auto 100 /uL (0-100); Basophils Percent Auto 1.1 % (0-2); Eosinophils Absolute Auto 100 /uL (0-450); Eosinophils Percent Auto 1.6 % (2-4); Hematocrit 33.5 % (41-53); Hemoglobin 11.6 g/dL (13.5-17.5); Lymphocytes Absolute Auto 1100 /uL (1100-4500); Lymphocytes Percent Auto 12.4 % (25-40); Mean Corpuscular HGB Conc 34.5 % (30-36); Mean Corpuscular Hemoglobin 30.4 PG (26-34); Monocytes Absolute Auto 400 /uL (0-900); Monocytes Percent Auto 5.1 % (3-14); Neutrophils Absolute Auto 6900 /uL (1500-7000); Neutrophils Percent Auto 79.8 % (50-75); Platelet Count 190 X10^3/uL (150-400); Red Blood Cell Count 3.81 X10^6/uL (4.5-5.9); Red Cell Distribution Width 14.5 % (11.6-14.8); White Blood Cell Count 8.7 X10^3/uL (4.5-11.0)
[2022-05-04 00:15] LABS: INR 2.6 (0.9-1.3); Prothrombin Time 30.6 SECONDS (10.1-12.7)
[2022-05-04 00:20] LABS: Alanine Aminotransferase 22 IU/L (<50); Albumin 3.8 g/dL (3.5-5.0); Albumin Globulin Ratio 1.2 (1.0-2.8); Alkaline Phosphatase 102 U/L (38-126); Aspartate Aminotransferase 31 IU/L (17-59); BUN Creatinine Ratio 19.3 (6-22); Bilirubin Total 0.7 mg/dL (0.2-1.3); Blood Urea Nitrogen 38 mg/dL (9-20); Calcium 8.5 mg/dL (8.4-10.2); Carbon Dioxide 24 mmol/L (22-32); Chloride 104 mmol/L (98-107); Estimated Glomerular Filt Rate 32 mL/min (>60); Globulin 3.2 g/dL (1.7-4.1); Glucose 402 mg/dL (80-110); HEMOLYSIS < 15 (0-50); Lipase 106 U/L (23-300); Sodium 138 mmol/L (137-145)
[2022-05-04 00:24] LABS: Ketones (Beta-Hydroxybutyrate) 0.34 mmol/L (<0.27)
--- NOTE | 2022-05-04 01:21 | ED_ITS ---
HPI - Medical Clearance General Chief complaint: Medical Clearance Stated complaint: FFJ Time Seen by Provider: 05/03/22 23:42 Source: patient, EMS and police Mode of arrival: EMS Limitations: no limitations History of Present Illness HPI Narrative: This is an 86-year-old male with history of diabetes type 2, AFib anticoagulated on warfarin, kidney stones, prostate cancer, CHF who presents for clearance for incarceration. Patient has no complaints. He does note his glucoses have been elevated at least for a month in the 3-400 range and occasional registered as high. He is not made any adjustments in medication. He actually appointment later this morning with a home health care nurse to sit down review all of his sugars his medications and adjust them. Patient states he is not had any symptoms. He has no other complaints. He denies any recent adjustments to his medications. He has not had any exacerbating factors otherwise for his glucose that he is reporting. He notes that his long-acting insulin is at 40 units nightly, he states this was decreased awhile ago because he had lows below 70 bu t this was at least several months ago. He is able to show me his monitor he does test about 150 most mornings but then is above 2-300 range daily and then dropped back down overnight. Related Information Home Medications Medication Instructions Recorded Confirmed levothyroxine 50 mcg tablet 50 mcg PO MOTUWETHFRSA 09/16/17 04/16/22 docusate sodium 100 mg PO DAILY 01/06/20 04/16/22 mecobalamin (vitamin B12) 1,000 1,000 mcg PO DAILY 05/26/21 04/16/22 mcg chewable tablet rosuvastatin 5 mg tablet 5 mg PO DAILY 05/26/21 04/16/22 sennosides 8.6 mg tablet (senna) 8.6 mg PO DAILY PRN Constipation 05/26/21 04/16/22 triamcinolone acetonide 0.1 % 1 applic topical DAILY PRN Rash 05/26/21 04/16/22 topical cream insulin glargine 100 unit/mL (3 40 unit SUBCUT BEDTIME 09/02/21 04/16/22 mL) subcutaneous pen (Lantus Solostar U-100 Insulin) warfarin 5 mg tablet 2.5 mg PO 4XW 09/02/21 04/16/22 warfarin 5 mg tablet (Coumadin) 5 mg PO 3XW 09/02/21 04/16/22 furosemide 20 mg tablet 20 mg PO BID 12/03/21 04/16/22 novolog flexpen See Rx Instructions .Route .COMPLEX 04/16/22 04/16/22 Previous Rx's Medication Instructions Recorded digoxin 125 mcg (0.125 mg) tablet 0.125 mg PO DAILY #30 tabs 10/01/19 midodrine 5 mg tablet 5 mg PO 0600,1200,1800 #15 tabs 10/01/19 mupirocin 2 % topical ointment 1 applic topical TID #15 grams 01/08/21 diclofenac sodium 1 % topical gel 2 g topical QID #100 grams 07/17/21 (Voltaren Arthritis Pain) lidocaine 5 % topical patch 1 patch topical DAILY PRN pain #15 07/17/21 ea hydrocodone 5 mg-acetaminophen 325 1 tab PO Q4H PRN pain #30 tabs 12/05/21 mg tablet Allergies Allergy/AdvReac Type Severity Reaction Status Date / Time Penicillins Allergy Intermediate Rash Verified 04/16/22 15:37 Review of Systems Review of Systems ROS Unobtainable: All systems reviewed & are unremarkable except as noted in HPI and below Patient History Medical History Arthritis Cancer of left ear Chronic atrial fibrillation with RVR Community acquired pneumonia COVID-19 Diabetes E coli infection Encounter for monitoring androgen deprivation therapy Hernia of abdominal cavity High blood pressure History of back pain History of urinary tract infection Hypothyroidism Inguinal hernia bilateral, non-recurrent Kidney stones Lower urinary tract symptoms Male circumcision Melanoma Prostate cancer Right eye injury Warfarin anticoagulation Surgical History H/O colectomy H/O vasectomy History of throat surgery History of transurethral resection of prostate Hx of cholecystectomy Hx of circumcision Hx of prostate biopsy Status post bilateral hernia repair Family History Mother Coronary artery disease Father Diabetes mellitus Hearing impairment Spouse CVA (cerebrovascular accident due to intracerebral hemorrhage) Kidney stones Social History marital status: number of children: 4 household members: spouse Smoking Status: Never smoker alcohol intake: former Type(s) of exercise: none Smoking Status: Never smoker alcohol intake frequency: 0-2 drinks per day Substance Use Type: does not use Exam Narrative Exam Narrative: Elderly appearing male GENERAL: Alert and oriented x three, HEENT: Head normocephalic, atraumatic, EOMI, pupils reactive, face symmetric, moist mucous membranes NECK: Supple, full range of motion CARDIOVASCULAR: Regular rate and rhythm without murmurs, rubs or gallops. RESPIRATORY: Breath sounds equal bilaterally, no wheezes rales or rhonchi. ABDOMEN: Soft, nontender. Normoactive bowel sounds all 4 quadrants. No guarding or rebound, rigidity, no mass : No CVA tenderness EXTREMITIES: Normal range of motion, no clubbing. Neurovascularly intact NEUROLOGICAL: Cranial nerves II through XII grossly intact. Moving all extremities SKIN: Warm, dry, no petechiae, no rashes or lesions. Initial Vital Signs Initial Vital Signs: Vital Signs Temperature 97.8 F 05/03/22 23:13 Pulse Rate 81 05/03/22 23:13 Respiratory Rate 16 05/03/22 23:13 Blood Pressure 161/88 H 05/03/22 23:13 Pulse Oximetry 97 05/03/22 23:13 Oxygen Delivery Method 05/03/22 23:13 MDM - Medical Clearance Lab Data 05/03/22 23:50 05/03/22 23:50 Labs: Lab Results 05/03/22 05/03/22 05/03/22 Range/Units 23:50 23:50 23:50 WBC 8.7 (4.5-11.0) X10^3/uL RBC 3.81 L (4.5-5.9) X10^6/uL Hgb 11.6 L (13.5-17.5) g/dL Hct 33.5 L (41-53) % MCV 88.0 (80-100) fL MCH 30.4 (26-34) PG MCHC 34.5 (30-36) % RDW 14.5 (11.6-14.8) % Plt Count 190 (150-400) X10^3/uL Neut % (Auto) 79.8 H (50-75) % Lymph % (Auto) 12.4 L (25-40) % [place] % (Auto) 5.1 (3-14) % Eos % (Auto) 1.6 L (2-4) % Baso % (Auto) 1.1 (0-2) % Neut # (Auto) 6900 (6561-2841) /uL Lymph # (Auto) 1100 (5975-6839) /uL [place] # (Auto) 400 (0-900) /uL Eos # (Auto) 100 (0-450) /uL Baso # (Auto) 100 (0-100) /uL PT 30.6 H (10.1-12.7) SECONDS INR 2.6 H (0.9-1.3) Sodium 138 (137-145) mmol/L Potassium 5.0 (3.4-5.1) mmol/L Chloride 104 (98-107) mmol/L Carbon Dioxide 24 (22-32) mmol/L BUN 38 H (9-20) mg/dL Creatinine 1.97 H (0.66-1.25) mg/dL Estimated GFR 32 L (>60) mL/min BUN/Creatinine Ratio 19.3 (6-22) Glucose 402 H (80-110) mg/dL Calcium 8.5 (8.4-10.2) mg/dL Total Bilirubin 0.7 (0.2-1.3) mg/dL AST 31 (17-59) IU/L ALT 22 (<50) IU/L Alkaline Phosphatase 102 (38-126) U/L Total Protein 7.0 (6.3-8.2) g/dL Albumin 3.8 (3.5-5.0) g/dL Globulin 3.2 (1.7-4.1) g/dL Albumin/Globulin Ratio 1.2 (1.0-2.8) Lipase 106 (23-300) U/L Ketones 0.34 H (<0.27) mmol/L MDM Narrative Medical decision making narrative: This is an 86-year-old male with history of chronic insulin-dependent diabetes that is not normally well controlled. He has had occasional highs, he has no complaints he presents today for clearance for incarceration. Patient is on warfarin, has CHF, insulin-dependent diabetes he is hyperglycemic, renal function is stable he does not appear to be in DKA. His anion gap is 10, he does not electrolyte abnormalities he does have some ketones in his urine. Patient is supposed to meet with the home health care nurse today to adjust his medications. Discussed with the officer and I also spoke with the nurse at the halfway she is uncomfortable regarding patient's multiple medical comorbidities and does not feel this patient be appropriate for medical management at the halfway. Veronica sue has not been cleared for halfway but is appropriate for discharge home with plan for him to meet with his clinical nursing coordinator today to adjust his medications. Discussed with patient plan for return as needed. Discharge Plan Departure Patient Disposition: Home Clinical Impression: Hyperglycemia, Insulin dependent diabetes mellitus, Chronic kidney disease Activity Restrictions/Additional Instructions: Patient is cleared for discharge, he has multiple medical issues that may maybe management of his healthcare very difficult in a halfway setting. Follow-up with your nursing appointment to adjust your medications. If you prefer you can talk with Dr. Figueroa about adjusting your medications. I would recommend increasing your short-acting insulin in the morning from 40 units to 16 units Please return for new symptoms such as chest pain, shortness of breath, vomiting, abdominal pain, new swelling in your extremities or other new or concerning changes. Prescriptions: No Action mupirocin 2 % ointment 1 applic topical TID Qty: 15 0RF midodrine 5 mg Tablet 5 mg PO 0600,1200,1800 Qty: 15 0RF Rx Instructions: Pt states his doctor took him off of this for a while; hes not sure why Takes once daily in am digoxin 125 mcg (0.125 mg) Tablet 0.125 mg PO DAILY Qty: 30 0RF lidocaine 5 % adhesive patch,medicated 1 patch topical DAILY PRN (Reason: pain) Qty: 15 0RF Rx Instructions: leave on most painful area for up to 12 hrs diclofenac sodium [Voltaren Arthritis Pain] 1 % gel 2 g topical QID Qty: 100 0RF Rx Instructions: apply to single elbow, wrist or hand; for hand includes palm/fingers/back of hand furosemide 20 mg tablet 20 mg PO BID hydrocodone-acetaminophen 5-325 mg tablet 1 tab PO Q4H PRN (Reason: pain) Qty: 30 0RF Rx Instructions: Do not take at the same time as the methocarbamol, they are sedating together and I do not want you to fall. levothyroxine 50 mcg Tablet 50 mcg PO MOTUWETHFRSA Rx Instructions: I tablet by mouth daily, except 2 tablets by mouth on Sundays warfarin [Coumadin] 5 mg tablet 5 mg PO 3XW docusate sodium 100 mg 100 mg PO DAILY warfarin 5 mg tablet 2.5 mg PO 4XW Rx Instructions: Tues, [place], Sat, Sun rosuvastatin 5 mg tablet 5 mg PO DAILY sennosides [senna] 8.6 mg tablet 8.6 mg PO DAILY PRN (Reason: Constipation) triamcinolone acetonide 0.1 % cream 1 applic topical DAILY PRN (Reason: Rash) mecobalamin (vitamin B12) 1,000 mcg tablet,chewable 1,000 mcg PO DAILY novolog flexpen See Rx Instructions .ROUTE .COMPLEX Rx Instructions: 12 units at breakfast, 12 units at lunch, and 14 units at dinner. Lantus Solostar U-100 Insulin 100 unit/mL (3 mL) insulin pen 40 unit SUBCUT BEDTIME Referrals: Lo Figueroa MD [Primary Care Provider] - Stand Alone Forms: Patient Portal/API
[2022-05-04 02:15] VITALS: BP 143/88; PULSE 84; RESP 17; O2SAT 99
== END 2022-05-04 02:15 | disposition home or self-care (01) ==
PROVIDERS: Emergency Provider Emergency Medicine; PCP Internal Medicine
DX: Z00.8 Encounter for other general examination (principal); E11.65 Type 2 diabetes mellitus with hyperglycemia; E11.22 Type 2 diabetes mellitus with diabetic chronic kidney disease; N18.9 Chronic kidney disease, unspecified; I50.9 Heart failure, unspecified; Z79.01 Long term (current) use of anticoagulants
CPT/HCPCS: 36415; 80053; 82009; 83690; 85025; 85610; 99281; 99283

== ENCOUNTER 2022-05-05 14:24 | Emergency (ER) | payer OTHER, SELFPAY ==
[2022-04-16 16:09] VITALS: BMI 32.4
[2022-05-05] VITALS (17 sets, daily range): BP systolic 112–177; BP diastolic 64–87; PULSE 49–84; RESP 17; TEMP 36.1; O2SAT 91–100; BMI 32.5
[2022-05-05 15:15] LABS: Add Manual Diff / Slide Review NO; Basophils Absolute Auto 0 /uL (0-100); Basophils Percent Auto 0.6 % (0-2); Eosinophils Absolute Auto 100 /uL (0-450); Eosinophils Percent Auto 0.9 % (2-4); Hematocrit 36.2 % (41-53); Hemoglobin 12.1 g/dL (13.5-17.5); Lymphocytes Absolute Auto 1200 /uL (1100-4500); Lymphocytes Percent Auto 15.8 % (25-40); Mean Corpuscular HGB Conc 33.6 % (30-36); Mean Corpuscular Hemoglobin 29.4 PG (26-34); Mean Corpuscular Volume 87.5 fL (80-100); Monocytes Absolute Auto 300 /uL (0-900); Monocytes Percent Auto 4.5 % (3-14); Neutrophils Absolute Auto 6000 /uL (1500-7000); Neutrophils Percent Auto 78.2 % (50-75); Platelet Count 210 X10^3/uL (150-400); Red Blood Cell Count 4.13 X10^6/uL (4.5-5.9); Red Cell Distribution Width 14.6 % (11.6-14.8); White Blood Cell Count 7.6 X10^3/uL (4.5-11.0)
[2022-05-05 15:32] LABS: Alanine Aminotransferase 25 IU/L (<50); Albumin 4.1 g/dL (3.5-5.0); Albumin Globulin Ratio 1.2 (1.0-2.8); Alkaline Phosphatase 107 U/L (38-126); Aspartate Aminotransferase 38 IU/L (17-59); BUN Creatinine Ratio 18.4 (6-22); Blood Urea Nitrogen 34 mg/dL (9-20); Calcium 8.8 mg/dL (8.4-10.2); Carbon Dioxide 24 mmol/L (22-32); Chloride 105 mmol/L (98-107); Estimated Glomerular Filt Rate 35 mL/min (>60); Globulin 3.3 g/dL (1.7-4.1); Glucose 352 mg/dL (80-110); HEMOLYSIS < 15 (0-50); Potassium 4.3 mmol/L (3.4-5.1); Sodium 139 mmol/L (137-145); Total Protein 7.4 g/dL (6.3-8.2)
[2022-05-05 15:38] LABS: Hemoglobin A1C% w Est Avg Glu 9.8 % (4.0-6.0)
[2022-05-05] MEDS: SODIUM CHLORIDE 0.9% 1,000 ML 1000 ML IV (15:46)
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
[2022-05-05 17:49] LABS: COVID19 -Nasal RAPID Negative (Negative)
[2022-05-05] MEDS: INSULIN GLARGINE 100 UNIT/ML 3ML PEN 40 UNIT SUBCUT (21:42)
[2022-05-05 22:07] LABS: Bacteria Urine Occasional (0-1); Hyaline Casts Urine 0-1/LPF; Mucus Urine 1+ (Negative); RBC Urine 0-1/HPF (0-5/HPF); Squamous Epithelial Cell Urine 0-1 /HPF (0-5/HPF); WBC Urine 5-10/HPF (0-5/HPF)
[2022-05-06] VITALS (37 sets, daily range): BP systolic 86–144; BP diastolic 51–82; PULSE 51–101; RESP 22; O2SAT 82–100
--- NOTE | 2022-05-06 08:17 | PC.NURSE ---
Ok per Dr Majano to administer patients home morning meds. Furosemide 20mg PO, Rousuvastatin 5mg PO, Levothyroxine 0.05mg, Hydrocodone/acetaminophen 5-325mg, Digoxin 0.125mg. Patient self administered 12units Humalog Pen from home meds.
--- NOTE | 2022-05-06 09:29 | PC.NURSE ---
Vital signs claimed prior to 0700 are from shift lab technician
--- NOTE | 2022-05-06 10:46 | PC.NURSE ---
Dennys checked on blood sugar 326. Blood sugar prior to breakfast 200.
[2022-05-06] MEDS: cephALEXin 250 MG CAPSULE 500 MG PO (14:15)
--- NOTE | 2022-05-06 14:20 | PC.NURSE ---
This cloth designer performed ambulation trial with patient. Patient used walker and was able to walk over 100ft. Heart rate was 101 and O2 was 99%. Patient passed ambulation trial. Doctor and RN notified.
--- NOTE | 2022-05-06 16:30 | PC.NURSE ---
APS at bedside for evaluation of patient
--- NOTE | 2022-05-06 17:29 | PT-IP ANOTE ---
Spoke with RN, patient passed ambulation trial with machine bunch maker, able to walk 100+, RN notes PT not required at this time, will discharge from caseload.
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
--- NOTE | 2022-05-06 17:52 | PC.NURSE ---
Patient provided with extra briefs, urinal, wipes and some insulin pen screw on needles. Patient educated about discharge instructions, no additional questions upon discharge. Ricardo assisted with getting dressed and things backed, escorted to lobby to wait for [employer].
== END 2022-05-06 18:05 | disposition home or self-care (01) ==
PROVIDERS: Emergency Medicine; Emergency Provider Emergency Medicine; PCP Internal Medicine
DX: E11.65 Type 2 diabetes mellitus with hyperglycemia (principal); Z20.822 Contact with and (suspected) exposure to COVID-19
CPT/HCPCS: 36415; 80053; 81003; 81015; 82962; 83036; 85025; 87086; 87635; 96360; 96361; 96372; 99284; C9803

== ENCOUNTER 2022-05-17 10:20 | Emergency (ER) | payer OTHER, SELFPAY ==
[2022-04-16 16:09] VITALS: BMI 32.4
[2022-05-17] VITALS (20 sets, daily range): BP systolic 112–133; BP diastolic 59–80; PULSE 69–107; RESP 11–27; TEMP 36.5; O2SAT 82–100; BMI 29.2
[2022-05-17 10:15] LABS: Add Manual Diff / Slide Review NO; Basophils Absolute Auto 0 /uL (0-100); Basophils Percent Auto 0.6 % (0-2); Eosinophils Absolute Auto 100 /uL (0-450); Eosinophils Percent Auto 2.3 % (2-4); Hematocrit 33.9 % (41-53); Hemoglobin 11.3 g/dL (13.5-17.5); Lymphocytes Absolute Auto 1800 /uL (1100-4500); Lymphocytes Percent Auto 27.7 % (25-40); Mean Corpuscular HGB Conc 33.3 % (30-36); Mean Corpuscular Hemoglobin 29.1 PG (26-34); Mean Corpuscular Volume 87.6 fL (80-100); Monocytes Absolute Auto 500 /uL (0-900); Monocytes Percent Auto 8.1 % (3-14); Neutrophils Absolute Auto 3900 /uL (1500-7000); Neutrophils Percent Auto 61.3 % (50-75); Platelet Count 199 X10^3/uL (150-400); Red Blood Cell Count 3.87 X10^6/uL (4.5-5.9); Red Cell Distribution Width 15.1 % (11.6-14.8); White Blood Cell Count 6.4 X10^3/uL (4.5-11.0)
[2022-05-17 10:20] LABS: Alanine Aminotransferase 25 IU/L (<50); Albumin 3.8 g/dL (3.5-5.0); Albumin Globulin Ratio 1.2 (1.0-2.8); Alkaline Phosphatase 100 U/L (38-126); Aspartate Aminotransferase 40 IU/L (17-59); BUN Creatinine Ratio 21.9 (6-22); Bilirubin Total 0.8 mg/dL (0.2-1.3); Blood Urea Nitrogen 39 mg/dL (9-20); Calcium 8.8 mg/dL (8.4-10.2); Carbon Dioxide 30 mmol/L (22-32); Chloride 103 mmol/L (98-107); Estimated Glomerular Filt Rate 37 mL/min (>60); Globulin 3.3 g/dL (1.7-4.1); Glucose 258 mg/dL (80-110); HEMOLYSIS < 15 (0-50); Lipase 114 U/L (23-300); Sodium 138 mmol/L (137-145); Total Protein 7.1 g/dL (6.3-8.2)
--- NOTE | 2022-05-17 10:44 | ED_ITS ---
HPI - Nausea/Vomiting/Diarrhea <Cristel Howe, DO - Last Filed: 05/22/22 07:41> General Chief complaint: Nausea/Vomiting/Diarrhea Stated complaint: weakness, diarrhea Time Seen by Provider: 05/17/22 10:27 Source: patient Mode of arrival: EMS History of Present Illness HPI Narrative: Patient is an 86-year-old male history of atrial fibrillation on warfarin diabetes presenting today with 2 episodes of diarrhea. He has been to the emergency department twice May 04 and May 05 once for abnormal blood sugars and once for medical clearance for incarceration. He is since been staying in a hotel. He reports feeling more fatigued and weak he feels like he has to urinate but can not urinate currently. He really has absolutely no abdominal pain no nausea no vomiting no chest pain no palpitations dizziness lightheadedness or falling. There has been some social situation he had been staying in the hotel however all of his belongings have gone with the son who is now gone back to [place]. Related Data Home Medications Medication Instructions Recorded Confirmed levothyroxine 50 mcg tablet 50 mcg PO MOTUWETHFRSA 09/16/17 05/17/22 docusate sodium 100 mg PO DAILY 01/06/20 04/16/22 mecobalamin (vitamin B12) 1,000 1,000 mcg PO DAILY 05/26/21 04/16/22 mcg chewable tablet rosuvastatin 5 mg tablet 5 mg PO DAILY 05/26/21 05/17/22 sennosides 8.6 mg tablet (senna) 8.6 mg PO DAILY PRN Constipation 05/26/21 04/16/22 triamcinolone acetonide 0.1 % 1 applic topical DAILY PRN Rash 05/26/21 04/16/22 topical cream insulin glargine 100 unit/mL (3 38 unit SUBCUT QAM 09/02/21 05/18/22 mL) subcutaneous pen (Lantus Solostar U-100 Insulin) warfarin 5 mg tablet 2.5 mg PO 4XW 09/02/21 05/17/22 warfarin 5 mg tablet (Coumadin) 5 mg PO 3XW 09/02/21 05/17/22 furosemide 20 mg tablet 20 mg PO BID 12/03/21 05/17/22 hydrocodone 5 mg-acetaminophen 325 1 tab PO Q6HR 05/05/22 05/17/22 mg tablet insulin lispro 100 unit/mL 1 sliding scale dose SUBCUT 05/05/22 05/18/22 subcutaneous pen (Humalog KwikPen USEASDIRECTD (U-100) Insulin) Previous Rx's Medication Instructions Recorded digoxin 125 mcg (0.125 mg) tablet 0.125 mg PO DAILY #30 tabs 10/01/19 midodrine 5 mg tablet 5 mg PO 0600,1200,1800 #15 tabs 10/01/19 mupirocin 2 % topical ointment 1 applic topical TID #15 grams 01/08/21 diclofenac sodium 1 % topical gel 2 g topical QID #100 grams 07/17/21 (Voltaren Arthritis Pain) lidocaine 5 % topical patch 1 patch topical DAILY PRN pain #15 07/17/21 ea Allergies Allergy/AdvReac Type Severity Reaction Status Date / Time Penicillins Allergy Intermediate Rash Verified 05/25/22 19:28 Review of Systems <Cristel Howe DO - Last Filed: 05/22/22 07:41> Review of Systems ROS Unobtainable: All systems reviewed & are unremarkable except as noted in HPI and below Patient History <Cristel Howe DO - Last Filed: 05/22/22 07:41> Medical History Arthritis Cancer of left ear Chronic atrial fibrillation with RVR Community acquired pneumonia COVID-19 Diabetes E coli infection Encounter for monitoring androgen deprivation therapy Hernia of abdominal cavity High blood pressure History of back pain History of urinary tract infection Hypothyroidism Inguinal hernia bilateral, non-recurrent Kidney stones Lower urinary tract symptoms Male circumcision Melanoma Prostate cancer Right eye injury Warfarin anticoagulation Surgical History H/O colectomy H/O vasectomy History of throat surgery History of transurethral resection of prostate Hx of cholecystectomy Hx of circumcision Hx of prostate biopsy Status post bilateral hernia repair Family History Mother Coronary artery disease Father Diabetes mellitus Hearing impairment Spouse CVA (cerebrovascular accident due to intracerebral hemorrhage) Kidney stones Social History marital status: number of children: 4 household members: none Smoking Status: Never smoker alcohol intake: former Type(s) of exercise: none Smoking Status: Never smoker alcohol intake frequency: 0-2 drinks per day Substance Use Type: does not use Exam <Cristel Howe DO - Last Filed: 05/22/22 07:41> Initial Vital Signs Initial Vital Signs: Vital Signs Temperature 97.7 F 05/17/22 09:52 Pulse Rate 92 H 05/17/22 09:52 Respiratory Rate 22 05/17/22 09:52 Blood Pressure 123/80 05/17/22 09:52 Pulse Oximetry 99 05/17/22 09:52 Oxygen Delivery Method Room Air 05/17/22 09:52 GENERAL: Alert 86-year-old male and in [no acute] distress. HEENT: Head atraumatic,EOMI, pupils reactive, face symmetric, [moist] mucous membranes CARDIOVASCULAR: Regular rate and rhythm without murmurs, rubs or gallops. RESPIRATORY: Breath sounds equal bilaterally, no wheezes rales or rhonchi. ABDOMEN: Soft, nontender. Normoactive bowel sounds all 4 quadrants. No guarding or rebound. EXTREMITIES: Normal range of motion, no clubbing . + Neurovascularly intact NEUROLOGICAL: Alert and oriented x4.Normal gait and speech. SKIN: Warm, dry, no laceration, no petechiae, no rashes or lesions. <Richar Grady DO - Last Filed: 05/20/22 06:11> Initial Vital Signs Initial Vital Signs: Vital Signs Temperature 97.7 F 05/17/22 09:52 Pulse Rate 92 H 05/17/22 09:52 Respiratory Rate 22 05/17/22 09:52 Blood Pressure 123/80 05/17/22 09:52 Pulse Oximetry 99 05/17/22 09:52 Oxygen Delivery Method Room Air 05/17/22 09:52 <Kandi Yusuf DO - Last Filed: 05/20/22 19:12> Initial Vital Signs Initial Vital Signs: Vital Signs Temperature 97.7 F 05/17/22 09:52 Pulse Rate 92 H 05/17/22 09:52 Respiratory Rate 22 05/17/22 09:52 Blood Pressure 123/80 05/17/22 09:52 Pulse Oximetry 99 05/17/22 09:52 Oxygen Delivery Method Room Air 05/17/22 09:52 <Anson Pedraza MD - Last Filed: 05/26/22 07:22> Initial Vital Signs Initial Vital Signs: Vital Signs Temperature 97.7 F 05/17/22 09:52 Pulse Rate 92 H 05/17/22 09:52 Respiratory Rate 22 05/17/22 09:52 Blood Pressure 123/80 05/17/22 09:52 Pulse Oximetry 99 05/17/22 09:52 Oxygen Delivery Method Room Air 05/17/22 09:52 Course <Cristel Howe DO - Last Filed: 05/22/22 07:41> Orders Ordered: Discontinued Medications Hydrocodone Bitart/Acetaminophen (Hydrocodone/Acet 5/325 Tablet) 1 tab PO NOW ONE Stop: 05/17/22 16:43 Last Admin: 05/17/22 16:52 Dose: 1 tab Documented By: NOEMY Hydrocodone Bitart/Acetaminophen (Hydrocodone/Acet 5/325 Tablet) 1 tab PO Q4H PRN PRN Reason: Pain, Moderate (4-6) Last Admin: 05/18/22 21:28 Dose: 1 tab Documented By: NGA Atorvastatin Calcium (Atorvastatin 20 Mg Tablet) 10 mg PO NOW [facility] Last Admin: 05/18/22 21:44 Dose: 10 mg Documented By: Admin: 05/18/22 21:22 Dose: 10 mg Documented By: NGA Dextrose (Dextrose 50 % In Water 25 Gm/50 Ml Syringe) 25 gm IV PRN PRN; Protocol PRN Reason: Hypoglycemia Digoxin (Digoxin 0.125 Mg Tablet) 0.125 mg PO DAILY [facility] Last Admin: 05/20/22 08:10 Dose: 0.125 mg Documented By: Admin: 05/19/22 09:41 Dose: 0.125 mg Documented By: Admin: 05/18/22 08:15 Dose: Not Given Documented By: KARLIE Furosemide (Furosemide 20 Mg Tablet) 20 mg PO BID [facility] Last Admin: 05/20/22 08:11 Dose: 20 mg Documented By: Admin: 05/19/22 21:08 Dose: 20 mg Documented By: Admin: 05/19/22 09:41 Dose: 20 mg Documented By: Admin: 05/18/22 21:22 Dose: 20 mg Documented By: Admin: 05/18/22 08:07 Dose: 20 mg Documented By: Admin: 05/17/22 21:36 Dose: 20 mg Documented By: CONRAD Sodium Chloride (Normal Saline 0.9%) 1,000 mls @ 1,000 mls/hr IV BOLUS ONE Stop: 05/17/22 11:42 Last Infusion: 05/17/22 12:53 Dose: 0 mls/hr Documented By: Admin: 05/17/22 11:04 Dose: 1,000 mls/hr Documented By: TARA Insulin Glargine (Insulin Glargine 100 Unit/Ml 3ml Pen) 30 unit SUBCUT BEDTIME [facility] Last Admin: 05/17/22 21:40 Dose: 30 unit Documented By: CONRAD Co-signed By: MARV Insulin Glargine (Insulin Glargine 100 Unit/Ml 3ml Pen) 40 unit SUBCUT BEDTIME [facility] Last Admin: 05/19/22 21:16 Dose: 40 unit Documented By: MARGARITA Co-signed By: HEATHER(2) Admin: 05/18/22 21:23 Dose: 40 unit Documented By: NGA Co-signed By: NOEMY Insulin Human Lispro (Insulin Lispro 100 Unit/Ml 3ml Vial) 0 unit SUBCUT ACHS [facility]; Protocol Last Admin: 05/18/22 12:55 Dose: Not Given Documented By: Admin: 05/18/22 08:16 Dose: 2 unit Documented By: KARLIE Co-signed By: AT Admin: 05/17/22 21:43 Dose: 3 unit Documented By: CONRAD Co-signed By: MARV Insulin Human Lispro (Insulin Lispro 100 Unit/Ml 3ml Vial) 0 unit SUBCUT ACHS [facility]; Protocol Last Admin: 05/20/22 08:08 Dose: 4 unit Documented By: JEREMY Co-signed By: HEATHER Admin: 05/19/22 21:12 Dose: 2 unit Documented By: MARGARITA Co-signed By: HEATHER(2) Admin: 05/19/22 16:53 Dose: 10 unit Documented By: HEATHER Co-signed By: HEATHER(2) Admin: 05/19/22 11:45 Dose: Not Given Documented By: Admin: 05/19/22 07:47 Dose: 10 unit Documented By: HEATHER Co-signed By: MARV Admin: 05/18/22 21:36 Dose: 7 unit Documented By: NGA Co-signed By: NOEMY Admin: 05/18/22 16:42 Dose: 7 unit Documented By: NOEMY Co-signed By: AT Admin: 05/18/22 12:47 Dose: 7 unit Documented By: NOEMY Co-signed By: HEATHER(2) Levothyroxine Sodium (Levothyroxine 50 Mcg Tablet) 50 mcg PO DAILY@0600 [facility] Last Admin: 05/20/22 06:54 Dose: 50 mcg Documented By: Admin: 05/19/22 10:00 Dose: 50 mcg Documented By: HEATHER Levothyroxine Sodium (Levothyroxine 50 Mcg Tablet) 50 mcg PO DAILY@0600 ONE Stop: 05/18/22 08:25 Last Admin: 05/18/22 08:37 Dose: 50 mcg Documented By: KARLIE Midodrine (Midodrine Hcl 5 Mg Tablet) 5 mg PO 0600,1200,1800 [facility] Naloxone HCl (Naloxone 0.4 Mg/Ml Vial) 0.2 mg IV Q2MIN PRN PRN Reason: Opiate Reversal Ondansetron HCl (Ondansetron 4 Mg Odt) 4 mg PO NOW PRN PRN Reason: Nausea And Vomiting Ondansetron HCl (Ondansetron 4 Mg/2 Ml Inj) 4 mg IV NOW PRN PRN Reason: Nausea And Vomiting Vital Signs Vital signs: Vital Signs - 8 hr 05/19/22 22:30 05/19/22 23:00 Pulse Rate 82 92 H Respiratory Rate 18 27 H Pulse Oximetry 97 91 <Richar Grady DO - Last Filed: 05/20/22 06:11> Orders Ordered: Discontinued Medications Hydrocodone Bitart/Acetaminophen (Hydrocodone/Acet 5/325 Tablet) 1 tab PO NOW ONE Stop: 05/17/22 16:43 Last Admin: 05/17/22 16:52 Dose: 1 tab Documented By: NOEMY Hydrocodone Bitart/Acetaminophen (Hydrocodone/Acet 5/325 Tablet) 1 tab PO Q4H PRN PRN Reason: Pain, Moderate (4-6) Last Admin: 05/18/22 21:28 Dose: 1 tab Documented By: NGA Atorvastatin Calcium (Atorvastatin 20 Mg Tablet) 10 mg PO NOW [facility] Last Admin: 05/18/22 21:44 Dose: 10 mg Documented By: Admin: 05/18/22 21:22 Dose: 10 mg Documented By: NGA Dextrose (Dextrose 50 % In Water 25 Gm/50 Ml Syringe) 25 gm IV PRN PRN; Protocol PRN Reason: Hypoglycemia Digoxin (Digoxin 0.125 Mg Tablet) 0.125 mg PO DAILY [facility] Last Admin: 05/20/22 08:10 Dose: 0.125 mg Documented By: Admin: 05/19/22 09:41 Dose: 0.125 mg Documented By: Admin: 05/18/22 08:15 Dose: Not Given Documented By: KARLIE Furosemide (Furosemide 20 Mg Tablet) 20 mg PO BID [facility] Last Admin: 05/20/22 08:11 Dose: 20 mg Documented By: Admin: 05/19/22 21:08 Dose: 20 mg Documented By: Admin: 05/19/22 09:41 Dose: 20 mg Documented By: Admin: 05/18/22 21:22 Dose: 20 mg Documented By: Admin: 05/18/22 08:07 Dose: 20 mg Documented By: Admin: 05/17/22 21:36 Dose: 20 mg Documented By: CONRAD Sodium Chloride (Normal Saline 0.9%) 1,000 mls @ 1,000 mls/hr IV BOLUS ONE Stop: 05/17/22 11:42 Last Infusion: 05/17/22 12:53 Dose: 0 mls/hr Documented By: Admin: 05/17/22 11:04 Dose: 1,000 mls/hr Documented By: TARA Insulin Glargine (Insulin Glargine 100 Unit/Ml 3ml Pen) 30 unit SUBCUT BEDTIME [facility] Last Admin: 05/17/22 21:40 Dose: 30 unit Documented By: CONRAD Co-signed By: MARV Insulin Glargine (Insulin Glargine 100 Unit/Ml 3ml Pen) 40 unit SUBCUT BEDTIME [facility] Last Admin: 05/19/22 21:16 Dose: 40 unit Documented By: MARGARITA Co-signed By: HEATHER(2) Admin: 05/18/22 21:23 Dose: 40 unit Documented By: NGA Co-signed By: NOEMY Insulin Human Lispro (Insulin Lispro 100 Unit/Ml 3ml Vial) 0 unit SUBCUT ACHS [facility]; Protocol Last Admin: 05/18/22 12:55 Dose: Not Given Documented By: Admin: 05/18/22 08:16 Dose: 2 unit Documented By: KARLIE Co-signed By: JEREMY Admin: 05/17/22 21:43 Dose: 3 unit Documented By: CONRAD Co-signed By: MARV Insulin Human Lispro (Insulin Lispro 100 Unit/Ml 3ml Vial) 0 unit SUBCUT ACHS [facility]; Protocol Last Admin: 05/20/22 08:08 Dose: 4 unit Documented By: JEREMY Co-signed By: HEATHER Admin: 05/19/22 21:12 Dose: 2 unit Documented By: MARGARITA Co-signed By: HEATHER(2) Admin: 05/19/22 16:53 Dose: 10 unit Documented By: HEATHER Co-signed By: HEATHER(2) Admin: 05/19/22 11:45 Dose: Not Given Documented By: Admin: 05/19/22 07:47 Dose: 10 unit Documented By: HEATHER Co-signed By: MARV Admin: 05/18/22 21:36 Dose: 7 unit Documented By: NGA Co-signed By: NOEMY Admin: 05/18/22 16:42 Dose: 7 unit Documented By: NOEMY Co-signed By: AT Admin: 05/18/22 12:47 Dose: 7 unit Documented By: NOEMY Co-signed By: HEATHER(2) Levothyroxine Sodium (Levothyroxine 50 Mcg Tablet) 50 mcg PO DAILY@0600 [facility] Last Admin: 05/20/22 06:54 Dose: 50 mcg Documented By: Admin: 05/19/22 10:00 Dose: 50 mcg Documented By: HEATHER Levothyroxine Sodium (Levothyroxine 50 Mcg Tablet) 50 mcg PO DAILY@0600 ONE Stop: 05/18/22 08:25 Last Admin: 05/18/22 08:37 Dose: 50 mcg Documented By: KARLIE Midodrine (Midodrine Hcl 5 Mg Tablet) 5 mg PO 0600,1200,1800 [facility] Naloxone HCl (Naloxone 0.4 Mg/Ml Vial) 0.2 mg IV Q2MIN PRN PRN Reason: Opiate Reversal Ondansetron HCl (Ondansetron 4 Mg Odt) 4 mg PO NOW PRN PRN Reason: Nausea And Vomiting Ondansetron HCl (Ondansetron 4 Mg/2 Ml Inj) 4 mg IV NOW PRN PRN Reason: Nausea And Vomiting Vital Signs Vital signs: Vital Signs - 8 hr 05/19/22 22:30 05/19/22 23:00 Pulse Rate 82 92 H Respiratory Rate 18 27 H Pulse Oximetry 97 91 <Kandi Yusuf DO - Last Filed: 05/20/22 19:12> Orders Ordered: Discontinued Medications Hydrocodone Bitart/Acetaminophen (Hydrocodone/Acet 5/325 Tablet) 1 tab PO NOW ONE Stop: 05/17/22 16:43 Last Admin: 05/17/22 16:52 Dose: 1 tab Documented By: NOEMY Hydrocodone Bitart/Acetaminophen (Hydrocodone/Acet 5/325 Tablet) 1 tab PO Q4H P RN PRN Reason: Pain, Moderate (4-6) Last Admin: 05/18/22 21:28 Dose: 1 tab Documented By: NGA Atorvastatin Calcium (Atorvastatin 20 Mg Tablet) 10 mg PO NOW [facility] Last Admin: 05/18/22 21:44 Dose: 10 mg Documented By: Admin: 05/18/22 21:22 Dose: 10 mg Documented By: NGA Dextrose (Dextrose 50 % In Water 25 Gm/50 Ml Syringe) 25 gm IV PRN PRN; Protocol PRN Reason: Hypoglycemia Digoxin (Digoxin 0.125 Mg Tablet) 0.125 mg PO DAILY [facility] Last Admin: 05/20/22 08:10 Dose: 0.125 mg Documented By: Admin: 05/19/22 09:41 Dose: 0.125 mg Documented By: Admin: 05/18/22 08:15 Dose: Not Given Documented By: KARLIE Furosemide (Furosemide 20 Mg Tablet) 20 mg PO BID [facility] Last Admin: 05/20/22 08:11 Dose: 20 mg Documented By: Admin: 05/19/22 21:08 Dose: 20 mg Documented By: Admin: 05/19/22 09:41 Dose: 20 mg Documented By: Admin: 05/18/22 21:22 Dose: 20 mg Documented By: Admin: 05/18/22 08:07 Dose: 20 mg Documented By: Admin: 05/17/22 21:36 Dose: 20 mg Documented By: CONRAD Sodium Chloride (Normal Saline 0.9%) 1,000 mls @ 1,000 mls/hr IV BOLUS ONE Stop: 05/17/22 11:42 Last Infusion: 05/17/22 12:53 Dose: 0 mls/hr Documented By: Admin: 05/17/22 11:04 Dose: 1,000 mls/hr Documented By: TARA Insulin Glargine (Insulin Glargine 100 Unit/Ml 3ml Pen) 30 unit SUBCUT BEDTIME [facility] Last Admin: 05/17/22 21:40 Dose: 30 unit Documented By: CONRAD Co-signed By: MARV Insulin Glargine (Insulin Glargine 100 Unit/Ml 3ml Pen) 40 unit SUBCUT BEDTIME [facility] Last Admin: 05/19/22 21:16 Dose: 40 unit Documented By: MARGARITA Co-signed By: HEATHER(2) Admin: 05/18/22 21:23 Dose: 40 unit Documented By: NGA Co-signed By: NOEMY Insulin Human Lispro (Insulin Lispro 100 Unit/Ml 3ml Vial) 0 unit SUBCUT [facility]; Protocol Last Admin: 05/18/22 12:55 Dose: Not Given Documented By: Admin: 05/18/22 08:16 Dose: 2 unit Documented By: KARLIE Co-signed By: AT Admin: 05/17/22 21:43 Dose: 3 unit Documented By: CONRAD Co-signed By: MARV Insulin Human Lispro (Insulin Lispro 100 Unit/Ml 3ml Vial) 0 unit SUBCUT ACHS [facility]; Protocol Last Admin: 05/20/22 08:08 Dose: 4 unit Documented By: JEREMY Co-signed By: HEATHER Admin: 05/19/22 21:12 Dose: 2 unit Documented By: MARGARITA Co-signed By: HEATHER(2) Admin: 05/19/22 16:53 Dose: 10 unit Documented By: HEATHER Co-signed By: HEATHER(2) Admin: 05/19/22 11:45 Dose: Not Given Documented By: Admin: 05/19/22 07:47 Dose: 10 unit Documented By: HEATHER Co-signed By: MARV Admin: 05/18/22 21:36 Dose: 7 unit Documented By: NGA Co-signed By: NOEMY Admin: 05/18/22 16:42 Dose: 7 unit Documented By: NOEMY Co-signed By: AT Admin: 05/18/22 12:47 Dose: 7 unit Documented By: NOEMY Co-signed By: HEATHER(2) Levothyroxine Sodium (Levothyroxine 50 Mcg Tablet) 50 mcg PO DAILY@0600 [facility] Last Admin: 05/20/22 06:54 Dose: 50 mcg Documented By: Admin: 05/19/22 10:00 Dose: 50 mcg Documented By: HEATHER Levothyroxine Sodium (Levothyroxine 50 Mcg Tablet) 50 mcg PO DAILY@0600 ONE Stop: 05/18/22 08:25 Last Admin: 05/18/22 08:37 Dose: 50 mcg Documented By: RB Midodrine (Midodrine Hcl 5 Mg Tablet) 5 mg PO 0600,1200,1800 [facility] Naloxone HCl (Naloxone 0.4 Mg/Ml Vial) 0.2 mg IV Q2MIN PRN PRN Reason: Opiate Reversal Ondansetron HCl (Ondansetron 4 Mg Odt) 4 mg PO NOW PRN PRN Reason: Nausea And Vomiting Ondansetron HCl (Ondansetron 4 Mg/2 Ml Inj) 4 mg IV NOW PRN PRN Reason: Nausea And Vomiting Vital Signs Vital signs: Vital Signs - 8 hr 05/19/22 22:30 05/19/22 23:00 Pulse Rate 82 92 H Respiratory Rate 18 27 H Pulse Oximetry 97 91 <Anson Pedraza MD - Last Filed: 05/26/22 07:22> Course Course Narrative: May 19, 2022 6:00 p.m. s/o dr galen [facility] has seen pt and verifying with family and son if no restraining order, if not then likely dc home. homehealth orders started by and sisi castañeda Orders Ordered: Discontinued Medications Hydrocodone Bitart/Acetaminophen (Hydrocodone/Acet 5/325 Tablet) 1 tab PO NOW ONE Stop: 05/17/22 16:43 Last Admin: 05/17/22 16:52 Dose: 1 tab Documented By: NOEMY Hydrocodone Bitart/Acetaminophen (Hydrocodone/Acet 5/325 Tablet) 1 tab PO Q4H PRN PRN Reason: Pain, Moderate (4-6) Last Admin: 05/18/22 21:28 Dose: 1 tab Documented By: SB Atorvastatin Calcium (Atorvastatin 20 Mg Tablet) 10 mg PO NOW [facility] Last Admin: 05/18/22 21:44 Dose: 10 mg Documented By: Admin: 05/18/22 21:22 Dose: 10 mg Documented By: SB Dextrose (Dextrose 50 % In Water 25 Gm/50 Ml Syringe) 25 gm IV PRN PRN; Protocol PRN Reason: Hypoglycemia Digoxin (Digoxin 0.125 Mg Tablet) 0.125 mg PO DAILY [facility] Last Admin: 05/20/22 08:10 Dose: 0.125 mg Documented By: Admin: 05/19/22 09:41 Dose: 0.125 mg Documented By: Admin: 05/18/22 08:15 Dose: Not Given Documented By: RB Furosemide (Furosemide 20 Mg Tablet) 20 mg PO BID [facility] Last Admin: 05/20/22 08:11 Dose: 20 mg Documented By: Admin: 05/19/22 21:08 Dose: 20 mg Documented By: Admin: 05/19/22 09:41 Dose: 20 mg Documented By: Admin: 05/18/22 21:22 Dose: 20 mg Documented By: Admin: 05/18/22 08:07 Dose: 20 mg Documented By: Admin: 05/17/22 21:36 Dose: 20 mg Documented By: CONRAD Sodium Chloride (Normal Saline 0.9%) 1,000 mls @ 1,000 mls/hr IV BOLUS ONE Stop: 05/17/22 11:42 Last Infusion: 05/17/22 12:53 Dose: 0 mls/hr Documented By: Admin: 05/17/22 11:04 Dose: 1,000 mls/hr Documented By: TARA Insulin Glargine (Insulin Glargine 100 Unit/Ml 3ml Pen) 30 unit SUBCUT BEDTIME [facility] Last Admin: 05/17/22 21:40 Dose: 30 unit Documented By: CONRAD Co-signed By: MARV Insulin Glargine (Insulin Glargine 100 Unit/Ml 3ml Pen) 40 unit SUBCUT BEDTIME [facility] Last Admin: 05/19/22 21:16 Dose: 40 unit Documented By: MARGARITA Co-signed By: HEATHER(2) Admin: 05/18/22 21:23 Dose: 40 unit Documented By: NGA Co-signed By: NOEMY Insulin Human Lispro (Insulin Lispro 100 Unit/Ml 3ml Vial) 0 unit SUBCUT ACHS [facility]; Protocol Last Admin: 05/18/22 12:55 Dose: Not Given Documented By: Admin: 05/18/22 08:16 Dose: 2 unit Documented By: KARLIE Co-signed By: JEREMY Admin: 05/17/22 21:43 Dose: 3 unit Documented By: CONRAD Co-signed By: MARV Insulin Human Lispro (Insulin Lispro 100 Unit/Ml 3ml Vial) 0 unit SUBCUT ACHS [facility]; Protocol Last Admin: 05/20/22 08:08 Dose: 4 unit Documented By: JEREMY Co-signed By: HEATHER Admin: 05/19/22 21:12 Dose: 2 unit Documented By: MARGARITA Co-signed By: HEATHER(2) Admin: 05/19/22 16:53 Dose: 10 unit Documented By: HEATHER Co-signed By: HEATHER(2) Admin: 05/19/22 11:45 Dose: Not Given Documented By: Admin: 05/19/22 07:47 Dose: 10 unit Documented By: HEATHER Co-signed By: MARV Admin: 05/18/22 21:36 Dose: 7 unit Documented By: NGA Co-signed By: NOEMY Admin: 05/18/22 16:42 Dose: 7 unit Documented By: NOEMY Co-signed By: AT Admin: 05/18/22 12:47 Dose: 7 unit Documented By: NOEMY Co-signed By: HEATHER(2) Levothyroxine Sodium (Levothyroxine 50 Mcg Tablet) 50 mcg PO DAILY@0600 [facility] Last Admin: 05/20/22 06:54 Dose: 50 mcg Documented By: Admin: 05/19/22 10:00 Dose: 50 mcg Documented By: HEATHER Levothyroxine Sodium (Levothyroxine 50 Mcg Tablet) 50 mcg PO DAILY@0600 ONE Stop: 05/18/22 08:25 Last Admin: 05/18/22 08:37 Dose: 50 mcg Documented By: KARLIE Midodrine (Midodrine Hcl 5 Mg Tablet) 5 mg PO 0600,1200,1800 [facility] Naloxone HCl (Naloxone 0.4 Mg/Ml Vial) 0.2 mg IV Q2MIN PRN PRN Reason: Opiate Reversal Ondansetron HCl (Ondansetron 4 Mg Odt) 4 mg PO NOW PRN PRN Reason: Nausea And Vomiting Ondansetron HCl (Ondansetron 4 Mg/2 Ml Inj) 4 mg IV NOW PRN PRN Reason: Nausea And Vomiting Vital Signs Vital signs: Vital Signs - 8 hr 05/19/22 22:30 05/19/22 23:00 Pulse Rate 82 92 H Respiratory Rate 18 27 H Pulse Oximetry 97 91 MDM - Nausea/Vomiting/Diarrhea <Cristel Howe DO - Last Filed: 05/22/22 07:41> Lab Data 05/18/22 07:43 05/18/22 07:43 Labs: Lab Results 05/17/22 05/17/22 05/17/22 Range/Units 09:30 09:30 09:30 WBC 6.4 (4.5-11.0) X10^3/uL RBC 3.87 L (4.5-5.9) X10^6/uL Hgb 11.3 L (13.5-17.5) g/dL Hct 33.9 L (41-53) % MCV 87.6 (80-100) fL MCH 29.1 (26-34) PG MCHC 33.3 (30-36) % RDW 15.1 H (11.6-14.8) % Plt Count 199 (150-400) X10^3/uL Neut % (Auto) 61.3 (50-75) % Lymph % (Auto) 27.7 (25-40) % [place] % (Auto) 8.1 (3-14) % Eos % (Auto) 2.3 (2-4) % Baso % (Auto) 0.6 (0-2) % Neut # (Auto) 3900 (5741-2443) /uL Lymph # (Auto) 1800 (3712-9664) /uL [place] # (Auto) 500 (0-900) /uL Eos # (Auto) 100 (0-450) /uL Baso # (Auto) 0 (0-100) /uL PT (10.1-12.7) SECONDS INR (0.9-1.3) Sodium 138 (137-145) mmol/L Potassium 4.0 (3.4-5.1) mmol/L Chloride 103 (98-107) mmol/L Carbon Dioxide 30 (22-32) mmol/L BUN 39 H (9-20) mg/dL Creatinine 1.78 H (0.66-1.25) mg/dL Estimated GFR 37 L (>60) mL/min BUN/Creatinine Ratio 21.9 (6-22) Glucose 258 H (80-110) mg/dL Lactate (0.7-2.1) mmol/L Calcium 8.8 (8.4-10.2) mg/dL Total Bilirubin 0.8 (0.2-1.3) mg/dL AST 40 (17-59) IU/L ALT 25 (<50) IU/L Alkaline Phosphatase 100 (38-126) U/L Total Creatine Kinase 43 L (55-170) U/L CK-MB (CK-2) TNP CK-MB (CK-2) Rel Index TNP Troponin I < 0.012 (0.01-0.034) ng/mL Total Protein 7.1 (6.3-8.2) g/dL Albumin 3.8 (3.5-5.0) g/dL Globulin 3.3 (1.7-4.1) g/dL Albumin/Globulin Ratio 1.2 (1.0-2.8) Lipase 114 (23-300) U/L Urine RBC (0-5/HPF) Urine WBC (0-5/HPF) Urine Bacteria (None) Ur Culture Indicated? Digoxin (0.8-2.0) ng/mL SARS-CoV-2 (PCR) (Negative) Influenza A (RT-PCR) (NEGATIVE) Influenza B (RT-PCR) (NEGATIVE) RSV (PCR) (Negative) 05/17/22 05/17/22 05/17/22 Range/Units 09:30 09:30 09:50 WBC (4.5-11.0) X10^3/uL RBC (4.5-5.9) X10^6/uL Hgb (13.5-17.5) g/dL Hct (41-53) % MCV (80-100) fL MCH (26-34) PG MCHC (30-36) % RDW (11.6-14.8) % Plt Count (150-400) X10^3/uL Neut % (Auto) (50-75) % Lymph % (Auto) (25-40) % [place] % (Auto) (3-14) % Eos % (Auto) (2-4) % Baso % (Auto) (0-2) % Neut # (Auto) (3080-3868) /uL Lymph # (Auto) (6376-7938) /uL [place] # (Auto) (0-900) /uL Eos # (Auto) (0-450) /uL Baso # (Auto) (0-100) /uL PT 61.0 H (10.1-12.7) SECONDS INR 5.2 H* (0.9-1.3) Sodium (137-145) mmol/L Potassium (3.4-5.1) mmol/L Chloride (98-107) mmol/L Carbon Dioxide (22-32) mmol/L BUN (9-20) mg/dL Creatinine (0.66-1.25) mg/dL Estimated GFR (>60) mL/min BUN/Creatinine Ratio (6-22) Glucose (80-110) mg/dL Lactate 1.6 (0.7-2.1) mmol/L Calcium (8.4-10.2) mg/dL Total Bilirubin (0.2-1.3) mg/dL AST (17-59) IU/L ALT (<50) IU/L Alkaline Phosphatase (38-126) U/L Total Creatine Kinase (55-170) U/L CK-MB (CK-2) CK-MB (CK-2) Rel Index Troponin I (0.01-0.034) ng/mL Total Protein (6.3-8.2) g/dL Albumin (3.5-5.0) g/dL Globulin (1.7-4.1) g/dL Albumin/Globulin Ratio (1.0-2.8) Lipase (23-300) U/L Urine RBC (0-5/HPF) Urine WBC (0-5/HPF) Urine Bacteria (None) Ur Culture Indicated? Digoxin (0.8-2.0) ng/mL SARS-CoV-2 (PCR) Negative (Negative) Influenza A (RT-PCR) Flu a negative (NEGATIVE) Influenza B (RT-PCR) Flu b negative (NEGATIVE) RSV (PCR) Negative (Negative) 05/17/22 05/17/22 05/17/22 Range/Units 13:09 21:30 21:30 WBC 5.5 (4.5-11.0) X10^3/uL RBC 3.32 L (4.5-5.9) X10^6/uL Hgb 9.9 L (13.5-17.5) g/dL Hct 29.1 L (41-53) % MCV 87.5 (80-100) fL MCH 29.8 (26-34) PG MCHC 34.0 (30-36) % RDW 15.0 H (11.6-14.8) % Plt Count 162 (150-400) X10^3/uL Neut % (Auto) 64.8 (50-75) % Lymph % (Auto) 23.8 L (25-40) % [place] % (Auto) 7.2 (3-14) % Eos % (Auto) 3.2 (2-4) % Baso % (Auto) 1.0 (0-2) % Neut # (Auto) 3600 (8503-4041) /uL Lymph # (Auto) 1300 (3472-4070) /uL [place] # (Auto) 400 (0-900) /uL Eos # (Auto) 200 (0-450) /uL Baso # (Auto) 100 (0-100) /uL PT 50.8 H D (10.1-12.7) SECONDS INR 4.4 H (0.9-1.3) Sodium (137-145) mmol/L Potassium (3.4-5.1) mmol/L Chloride (98-107) mmol/L Carbon Dioxide (22-32) mmol/L BUN (9-20) mg/dL Creatinine (0.66-1.25) mg/dL Estimated GFR (>60) mL/min BUN/Creatinine Ratio (6-22) Glucose (80-110) mg/dL Lactate (0.7-2.1) mmol/L Calcium (8.4-10.2) mg/dL Total Bilirubin (0.2-1.3) mg/dL AST (17-59) IU/L ALT (<50) IU/L Alkaline Phosphatase (38-126) U/L Total Creatine Kinase (55-170) U/L CK-MB (CK-2) CK-MB (CK-2) Rel Index Troponin I (0.01-0.034) ng/mL Total Protein (6.3-8.2) g/dL Albumin (3.5-5.0) g/dL Globulin (1.7-4.1) g/dL Albumin/Globulin Ratio (1.0-2.8) Lipase (23-300) U/L Urine RBC 0-1/hpf (0-5/HPF) Urine WBC 5-10/hpf H (0-5/HPF) Urine Bacteria Moderate (10-30) H (None) Ur Culture Indicated? Specimen cultured Digoxin (0.8-2.0) ng/mL SARS-CoV-2 (PCR) (Negative) Influenza A (RT-PCR) (NEGATIVE) Influenza B (RT-PCR) (NEGATIVE) RSV (PCR) (Negative) 05/17/22 05/18/22 05/18/22 Range/Units 21:30 07:43 07:43 WBC 4.7 (4.5-11.0) X10^3/uL RBC 3.22 L (4.5-5.9) X10^6/uL Hgb 9.6 L (13.5-17.5) g/dL Hct 27.9 L (41-53) % MCV 86.5 (80-100) fL MCH 29.8 (26-34) PG MCHC 34.4 (30-36) % RDW 14.8 (11.6-14.8) % Plt Count 149 L (150-400) X10^3/uL Neut % (Auto) 65.3 (50-75) % Lymph % (Auto) 23.2 L (25-40) % [place] % (Auto) 7.5 (3-14) % Eos % (Auto) 2.6 (2-4) % Baso % (Auto) 1.4 (0-2) % Neut # (Auto) 3100 (4001-9132) /uL Lymph # (Auto) 1100 (5497-4041) /uL [place] # (Auto) 400 (0-900) /uL Eos # (Auto) 100 (0-450) /uL Baso # (Auto) 100 (0-100) /uL PT 43.3 H D (10.1-12.7) SECONDS INR 3.7 H (0.9-1.3) Sodium 138 (137-145) mmol/L Potassium 3.9 (3.4-5.1) mmol/L Chloride 105 (98-107) mmol/L Carbon Dioxide 27 (22-32) mmol/L BUN 37 H (9-20) mg/dL Creatinine 1.61 H (0.66-1.25) mg/dL Estimated GFR 41 L (>60) mL/min BUN/Creatinine Ratio 23.0 H (6-22) Glucose 333 H (80-110) mg/dL Lactate (0.7-2.1) mmol/L Calcium 7.9 L (8.4-10.2) mg/dL Total Bilirubin (0.2-1.3) mg/dL AST (17-59) IU/L ALT (<50) IU/L Alkaline Phosphatase (38-126) U/L Total Creatine Kinase (55-170) U/L CK-MB (CK-2) CK-MB (CK-2) Rel Index Troponin I (0.01-0.034) ng/mL Total Protein (6.3-8.2) g/dL Albumin (3.5-5.0) g/dL Globulin (1.7-4.1) g/dL Albumin/Globulin Ratio (1.0-2.8) Lipase (23-300) U/L Urine RBC (0-5/HPF) Urine WBC (0-5/HPF) Urine Bacteria (None) Ur Culture Indicated? Digoxin (0.8-2.0) ng/mL SARS-CoV-2 (PCR) (Negative) Influenza A (RT-PCR) (NEGATIVE) Influenza B (RT-PCR) (NEGATIVE) RSV (PCR) (Negative) 05/18/22 05/18/22 Range/Units 07:43 08:41 WBC (4.5-11.0) X10^3/uL RBC (4.5-5.9) X10^6/uL Hgb (13.5-17.5) g/dL Hct (41-53) % MCV (80-100) fL MCH (26-34) PG MCHC (30-36) % RDW (11.6-14.8) % Plt Count (150-400) X10^3/uL Neut % (Auto) (50-75) % Lymph % (Auto) (25-40) % [place] % (Auto) (3-14) % Eos % (Auto) (2-4) % Baso % (Auto) (0-2) % Neut # (Auto) (0607-1762) /uL Lymph # (Auto) (8345-3832) /uL [place] # (Auto) (0-900) /uL Eos # (Auto) (0-450) /uL Baso # (Auto) (0-100) /uL PT (10.1-12.7) SECONDS INR (0.9-1.3) Sodium 137 (137-145) mmol/L Potassium 3.6 (3.4-5.1) mmol/L Chloride 107 (98-107) mmol/L Carbon Dioxide 25 (22-32) mmol/L BUN 35 H (9-20) mg/dL Creatinine 1.43 H (0.66-1.25) mg/dL Estimated GFR 48 L (>60) mL/min BUN/Creatinine Ratio 24.5 H (6-22) Glucose 271 H (80-110) mg/dL Lactate (0.7-2.1) mmol/L Calcium 7.7 L (8.4-10.2) mg/dL Total Bilirubin 0.7 (0.2-1.3) mg/dL AST 32 (17-59) IU/L ALT 21 (<50) IU/L Alkaline Phosphatase 77 (38-126) U/L Total Creatine Kinase (55-170) U/L CK-MB (CK-2) CK-MB (CK-2) Rel Index Troponin I (0.01-0.034) ng/mL Total Protein 5.7 L (6.3-8.2) g/dL Albumin 2.9 L (3.5-5.0) g/dL Globulin 2.8 (1.7-4.1) g/dL Albumin/Globulin Ratio 1.0 (1.0-2.8) Lipase 88 (23-300) U/L Urine RBC (0-5/HPF) Urine WBC (0-5/HPF) Urine Bacteria (None) Ur Culture Indicated? Digoxin 0.4 L (0.8-2.0) ng/mL SARS-CoV-2 (PCR) (Negative) Influenza A (RT-PCR) (NEGATIVE) Influenza B (RT-PCR) (NEGATIVE) RSV (PCR) (Negative) Point of Care Testing Glucose POC 202 Urine Dip Bedside Urine Glucose 500 mg/dl Bedside Urine Bilirubin - Negative Bedside Urine Ketone - Negative Urine Specific [place] 1.015 Bedside Urine Occult Blood - Negative Bedside Urine pH 6.0 Bedside Urine Protein +/- 15 Bedside Urine Urobilinogen - Negative Bedside Urine Nitrite - Negative Bedside Urine Leukocytes + 70 Esterase ECG Data Interpretation: Atrial fibrillation rate [address] changes right bundle-branch block noted similar to previous EKG MDM Narrative Medical decision making narrative: Patient 86-year-old male significant medical history of insulin-dependent diabetes, chronic kidney disease, kidney stones prostate cancer presents today with generalized fatigue and 2 episodes of diarrhea. Blood work is overall reassuring his abdomen is nontender he really has not had any episodes of diarrhea while in the emergency department. Bigger problem is more social. He has a restraining order against him and is not allowed to go home. Some how his medications and all his belongings his son came and took them to the house that he is not out go to. Social work saw and evaluated patient physical therapy also came to evaluate patient. Patient is quite weak difficulty caring for self. At this time does not meet admission criteria. Patient has [employer] insurance need approval will need social work continued involvement for discharge planning. <Richar Grady, DO - Last Filed: 05/20/22 06:11> Lab Data Labs: Lab Results 05/17/22 05/17/22 05/17/22 Range/Units 09:30 09:30 09:30 WBC 6.4 (4.5-11.0) X10^3/uL RBC 3.87 L (4.5-5.9) X10^6/uL Hgb 11.3 L (13.5-17.5) g/dL Hct 33.9 L (41-53) % MCV 87.6 (80-100) fL MCH 29.1 (26-34) PG MCHC 33.3 (30-36) % RDW 15.1 H (11.6-14.8) % Plt Count 199 (150-400) X10^3/uL Neut % (Auto) 61.3 (50-75) % Lymph % (Auto) 27.7 (25-40) % [place] % (Auto) 8.1 (3-14) % Eos % (Auto) 2.3 (2-4) % Baso % (Auto) 0.6 (0-2) % Neut # (Auto) 3900 (9026-4145) /uL Lymph # (Auto) 1800 (9417-9663) /uL [place] # (Auto) 500 (0-900) /uL Eos # (Auto) 100 (0-450) /uL Baso # (Auto) 0 (0-100) /uL PT (10.1-12.7) SECONDS INR (0.9-1.3) Sodium 138 (137-145) mmol/L Potassium 4.0 (3.4-5.1) mmol/L Chloride 103 (98-107) mmol/L Carbon Dioxide 30 (22-32) mmol/L BUN 39 H (9-20) mg/dL Creatinine 1.78 H (0.66-1.25) mg/dL Estimated GFR 37 L (>60) mL/min BUN/Creatinine Ratio 21.9 (6-22) Glucose 258 H (80-110) mg/dL Lactate (0.7-2.1) mmol/L Calcium 8.8 (8.4-10.2) mg/dL Total Bilirubin 0.8 (0.2-1.3) mg/dL AST 40 (17-59) IU/L ALT 25 (<50) IU/L Alkaline Phosphatase 100 (38-126) U/L Total Creatine Kinase 43 L (55-170) U/L CK-MB (CK-2) TNP CK-MB (CK-2) Rel Index TNP Troponin I < 0.012 (0.01-0.034) ng/mL Total Protein 7.1 (6.3-8.2) g/dL Albumin 3.8 (3.5-5.0) g/dL Globulin 3.3 (1.7-4.1) g/dL Albumin/Globulin Ratio 1.2 (1.0-2.8) Lipase 114 (23-300) U/L Urine RBC (0-5/HPF) Urine WBC (0-5/HPF) Urine Bacteria (None) Ur Culture Indicated? Digoxin (0.8-2.0) ng/mL SARS-CoV-2 (PCR) (Negative) Influenza A (RT-PCR) (NEGATIVE) Influenza B (RT-PCR) (NEGATIVE) RSV (PCR) (Negative) 05/17/22 05/17/22 05/17/22 Range/Units 09:30 09:30 09:50 WBC (4.5-11.0) X10^3/uL RBC (4.5-5.9) X10^6/uL Hgb (13.5-17.5) g/dL Hct (41-53) % MCV (80-100) fL MCH (26-34) PG MCHC (30-36) % RDW (11.6-14.8) % Plt Count (150-400) X10^3/uL Neut % (Auto) (50-75) % Lymph % (Auto) (25-40) % [place] % (Auto) (3-14) % Eos % (Auto) (2-4) % Baso % (Auto) (0-2) % Neut # (Auto) (9123-9290) /uL Lymph # (Auto) (5648-7810) /uL [place] # (Auto) (0-900) /uL Eos # (Auto) (0-450) /uL Baso # (Auto) (0-100) /uL PT 61.0 H (10.1-12.7) SECONDS INR 5.2 H* (0.9-1.3) Sodium (137-145) mmol/L Potassium (3.4-5.1) mmol/L Chloride (98-107) mmol/L Carbon Dioxide (22-32) mmol/L BUN (9-20) mg/dL Creatinine (0.66-1.25) mg/dL Estimated GFR (>60) mL/min BUN/Creatinine Ratio (6-22) Glucose (80-110) mg/dL Lactate 1.6 (0.7-2.1) mmol/L Calcium (8.4-10.2) mg/dL Total Bilirubin (0.2-1.3) mg/dL AST (17-59) IU/L ALT (<50) IU/L Alkaline Phosphatase (38-126) U/L Total Creatine Kinase (55-170) U/L CK-MB (CK-2) CK-MB (CK-2) Rel Index Troponin I (0.01-0.034) ng/mL Total Protein (6.3-8.2) g/dL Albumin (3.5-5.0) g/dL Globulin (1.7-4.1) g/dL Albumin/Globulin Ratio (1.0-2.8) Lipase (23-300) U/L Urine RBC (0-5/HPF) Urine WBC (0-5/HPF) Urine Bacteria (None) Ur Culture Indicated? Digoxin (0.8-2.0) ng/mL SARS-CoV-2 (PCR) Negative (Negative) Influenza A (RT-PCR) Flu a negative (NEGATIVE) Influenza B (RT-PCR) Flu b negative (NEGATIVE) RSV (PCR) Negative (Negative) 05/17/22 05/17/22 05/17/22 Range/Units 13:09 21:30 21:30 WBC 5.5 (4.5-11.0) X10^3/uL RBC 3.32 L (4.5-5.9) X10^6/uL Hgb 9.9 L (13.5-17.5) g/dL Hct 29.1 L (41-53) % MCV 87.5 (80-100) fL MCH 29.8 (26-34) PG MCHC 34.0 (30-36) % RDW 15.0 H (11.6-14.8) % Plt Count 162 (150-400) X10^3/uL Neut % (Auto) 64.8 (50-75) % Lymph % (Auto) 23.8 L (25-40) % [place] % (Auto) 7.2 (3-14) % Eos % (Auto) 3.2 (2-4) % Baso % (Auto) 1.0 (0-2) % Neut # (Auto) 3600 (0161-1727) /uL Lymph # (Auto) 1300 (2296-7710) /uL [place] # (Auto) 400 (0-900) /uL Eos # (Auto) 200 (0-450) /uL Baso # (Auto) 100 (0-100) /uL PT 50.8 H D (10.1-12.7) SECONDS INR 4.4 H (0.9-1.3) Sodium (137-145) mmol/L Potassium (3.4-5.1) mmol/L Chloride (98-107) mmol/L Carbon Dioxide (22-32) mmol/L BUN (9-20) mg/dL Creatinine (0.66-1.25) mg/dL Estimated GFR (>60) mL/min BUN/Creatinine Ratio (6-22) Glucose (80-110) mg/dL Lactate (0.7-2.1) mmol/L Calcium (8.4-10.2) mg/dL Total Bilirubin (0.2-1.3) mg/dL AST (17-59) IU/L ALT (<50) IU/L Alkaline Phosphatase (38-126) U/L Total Creatine Kinase (55-170) U/L CK-MB (CK-2) CK-MB (CK-2) Rel Index Troponin I (0.01-0.034) ng/mL Total Protein (6.3-8.2) g/dL Albumin (3.5-5.0) g/dL Globulin (1.7-4.1) g/dL Albumin/Globulin Ratio (1.0-2.8) Lipase (23-300) U/L Urine RBC 0-1/hpf (0-5/HPF) Urine WBC 5-10/hpf H (0-5/HPF) Urine Bacteria Moderate (10-30) H (None) Ur Culture Indicated? Specimen cultured Digoxin (0.8-2.0) ng/mL SARS-CoV-2 (PCR) (Negative) Influenza A (RT-PCR) (NEGATIVE) Influenza B (RT-PCR) (NEGATIVE) RSV (PCR) (Negative) 05/17/22 05/18/22 05/18/22 Range/Units 21:30 07:43 07:43 WBC 4.7 (4.5-11.0) X10^3/uL RBC 3.22 L (4.5-5.9) X10^6/uL Hgb 9.6 L (13.5-17.5) g/dL Hct 27.9 L (41-53) % MCV 86.5 (80-100) fL MCH 29.8 (26-34) PG MCHC 34.4 (30-36) % RDW 14.8 (11.6-14.8) % Plt Count 149 L (150-400) X10^3/uL Neut % (Auto) 65.3 (50-75) % Lymph % (Auto) 23.2 L (25-40) % [place] % (Auto) 7.5 (3-14) % Eos % (Auto) 2.6 (2-4) % Baso % (Auto) 1.4 (0-2) % Neut # (Auto) 3100 (7967-6088) /uL Lymph # (Auto) 1100 (0249-0572) /uL [place] # (Auto) 400 (0-900) /uL Eos # (Auto) 100 (0-450) /uL Baso # (Auto) 100 (0-100) /uL PT 43.3 H D (10.1-12.7) SECONDS INR 3.7 H (0.9-1.3) Sodium 138 (137-145) mmol/L Potassium 3.9 (3.4-5.1) mmol/L Chloride 105 (98-107) mmol/L Carbon Dioxide 27 (22-32) mmol/L BUN 37 H (9-20) mg/dL Creatinine 1.61 H (0.66-1.25) mg/dL Estimated GFR 41 L (>60) mL/min BUN/Creatinine Ratio 23.0 H (6-22) Glucose 333 H (80-110) mg/dL Lactate (0.7-2.1) mmol/L Calcium 7.9 L (8.4-10.2) mg/dL Total Bilirubin (0.2-1.3) mg/dL AST (17-59) IU/L ALT (<50) IU/L Alkaline Phosphatase (38-126) U/L Total Creatine Kinase (55-170) U/L CK-MB (CK-2) CK-MB (CK-2) Rel Index Troponin I (0.01-0.034) ng/mL Total Protein (6.3-8.2) g/dL Albumin (3.5-5.0) g/dL Globulin (1.7-4.1) g/dL Albumin/Globulin Ratio (1.0-2.8) Lipase (23-300) U/L Urine RBC (0-5/HPF) Urine WBC (0-5/HPF) Urine Bacteria (None) Ur Culture Indicated? Digoxin (0.8-2.0) ng/mL SARS-CoV-2 (PCR) (Negative) Influenza A (RT-PCR) (NEGATIVE) Influenza B (RT-PCR) (NEGATIVE) RSV (PCR) (Negative) 05/18/22 05/18/22 Range/Units 07:43 08:41 WBC (4.5-11.0) X10^3/uL RBC (4.5-5.9) X10^6/uL Hgb (13.5-17.5) g/dL Hct (41-53) % MCV (80-100) fL MCH (26-34) PG MCHC (30-36) % RDW (11.6-14.8) % Plt Count (150-400) X10^3/uL Neut % (Auto) (50-75) % Lymph % (Auto) (25-40) % [place] % (Auto) (3-14) % Eos % (Auto) (2-4) % Baso % (Auto) (0-2) % Neut # (Auto) (1060-3279) /uL Lymph # (Auto) (5824-9073) /uL [place] # (Auto) (0-900) /uL Eos # (Auto) (0-450) /uL Baso # (Auto) (0-100) /uL PT (10.1-12.7) SECONDS INR (0.9-1.3) Sodium 137 (137-145) mmol/L Potassium 3.6 (3.4-5.1) mmol/L Chloride 107 (98-107) mmol/L Carbon Dioxide 25 (22-32) mmol/L BUN 35 H (9-20) mg/dL Creatinine 1.43 H (0.66-1.25) mg/dL Estimated GFR 48 L (>60) mL/min BUN/Creatinine Ratio 24.5 H (6-22) Glucose 271 H (80-110) mg/dL Lactate (0.7-2.1) mmol/L Calcium 7.7 L (8.4-10.2) mg/dL Total Bilirubin 0.7 (0.2-1.3) mg/dL AST 32 (17-59) IU/L ALT 21 (<50) IU/L Alkaline Phosphatase 77 (38-126) U/L Total Creatine Kinase (55-170) U/L CK-MB (CK-2) CK-MB (CK-2) Rel Index Troponin I (0.01-0.034) ng/mL Total Protein 5.7 L (6.3-8.2) g/dL Albumin 2.9 L (3.5-5.0) g/dL Globulin 2.8 (1.7-4.1) g/dL Albumin/Globulin Ratio 1.0 (1.0-2.8) Lipase 88 (23-300) U/L Urine RBC (0-5/HPF) Urine WBC (0-5/HPF) Urine Bacteria (None) Ur Culture Indicated? Digoxin 0.4 L (0.8-2.0) ng/mL SARS-CoV-2 (PCR) (Negative) Influenza A (RT-PCR) (NEGATIVE) Influenza B (RT-PCR) (NEGATIVE) RSV (PCR) (Negative) Point of Care Testing Glucose POC 202 Urine Dip Bedside Urine Glucose 500 mg/dl Bedside Urine Bilirubin - Negative Bedside Urine Ketone - Negative Urine Specific [place] 1.015 Bedside Urine Occult Blood - Negative Bedside Urine pH 6.0 Bedside Urine Protein +/- 15 Bedside Urine Urobilinogen - Negative Bedside Urine Nitrite - Negative Bedside Urine Leukocytes + 70 Esterase MDM Narrative Medical decision making narrative: Patient 86-year-old male significant medical history of insulin-dependent diabetes, chronic kidney disease, kidney stones prostate cancer presents today with generalized fatigue and 2 episodes of diarrhea. Blood work is overall reassuring his abdomen is nontender he really has not had any episodes of diarrhea while in the emergency department. Bigger problem is more social. He has a restraining order against him and is not allowed to go home. Some how his medications and all his belongings his son came and took them to the house that he is not out go to. Social work saw and evaluated patient physical therapy also came to evaluate patient. Patient is quite weak difficulty caring for self. At this time does not meet admission criteria. Patient has Walk-in Appointment Scheduler insurance need approval will need social work continued involvement for discharge planning. Dr Grady: overnight 05/17-05/18: Received turned over. Review patient's history and physical exam and workup up to this point. Patient is medically clear. His INR is improving. Social work has seen the patient and the plan would be his for social work to be reinvolved today to follow-up on SNF placement. Care turned over to day provider to continue to observe until disposition. Dr. Yusuf 05/18/22: Patient signed out to myself. Patient has significant medical history insulin-dependent diabetes, chronic kidney disease, kidney stones, prostate cancer on warfarin. Blood work shows anemia, chronic kidney disease appears stable, patient is hyperglycemic but does not appear to be in DKA or hyperosmolar state he does have ketones in urine. Patient was actually seen by myself earlier in April and his pump had been reviewed and he had been in the 300 range daily for at least a month for his glucose with lows in the morning about 150 range. Patient is labs repeated throughout the day INR is down trending, plan to continue to monitor hemoglobin and recent labs this morning including CBC, CMP, lipase, will check stool occult if hemoglobin continues to trend down words. Patient appears to have sliding scale ordered along with his Lantus, Lasix and received a L of fluids yesterday which may have contributed to some delusional anemia rechecking hemoglobin. Patient appears to have some his home medications ordered but will check on his statin, midodrine, levothyroxine and digoxin in order these if he is still taking them. Social work has seen the patient and are looking at SNF placement is patient is not allowed to return home at this time. Patient seen independently evaluated. He notes that the glucose has not been well controlled. He is getting less than his typical discussed that we can adjust this. Does not appear that he is taking his midodrine currently but is still on statin, levothyroxine and digoxin. Digoxin was held this morning as heart rate was in the 40s, patient is to meet with social work today if it seems likely he is going to continue to be here longer than this afternoon we will co nsult with hospitalist for additional help with medical management. Patient urine culture showed group B strep positive [id number]. Patient denies any urinary symptoms. He has not had any black or bloody stools. Patient's Lantus was increased to 40 units, teach him to a high insulin sliding scale. Patient labs continued to be stable. I did discuss with the hospitalist for consultation for medical management as he will likely be here several days after talking to social work looking for SNF placement. Dr grady overnight 05/18-: Received turned over. Patient has been stable overnight. No new input. Care turned over to Dr. Pedraza to follow-up and disposition. Dr Grady overnight 05/19-05/20: Received turned over. Reviewed patient's daily events. Please see social work. Apparently the patient does not have a restraining order against him from his . There was extensive conversations throughout the day specifically with social work. Patient's weakness has improved. He was able to stand and walk here in the emergency department with a walker. He is tolerating oral intake. Patient continues to have no specific need for admission to the hospital. Per social work's report she talked with the patient's and she is willing to accept the patient back home. She cou ld not come pick the patient up last evening however was willing to have him back home today. We will arrange for a taxi ride home. <Kandi Yusuf, - Last Filed: 05/20/22 19:12> Lab Data Labs: Lab Results 05/17/22 05/17/22 05/17/22 Range/Units 09:30 09:30 09:30 WBC 6.4 (4.5-11.0) X10^3/uL RBC 3.87 L (4.5-5.9) X10^6/uL Hgb 11.3 L (13.5-17.5) g/dL Hct 33.9 L (41-53) % MCV 87.6 (80-100) fL MCH 29.1 (26-34) PG MCHC 33.3 (30-36) % RDW 15.1 H (11.6-14.8) % Plt Count 199 (150-400) X10^3/uL Neut % (Auto) 61.3 (50-75) % Lymph % (Auto) 27.7 (25-40) % [place] % (Auto) 8.1 (3-14) % Eos % (Auto) 2.3 (2-4) % Baso % (Auto) 0.6 (0-2) % Neut # (Auto) 3900 (8648-4004) /uL Lymph # (Auto) 1800 (3691-8918) /uL [place] # (Auto) 500 (0-900) /uL Eos # (Auto) 100 (0-450) /uL Baso # (Auto) 0 (0-100) /uL PT (10.1-12.7) SECONDS INR (0.9-1.3) Sodium 138 (137-145) mmol/L Potassium 4.0 (3.4-5.1) mmol/L Chloride 103 (98-107) mmol/L Carbon Dioxide 30 (22-32) mmol/L BUN 39 H (9-20) mg/dL Creatinine 1.78 H (0.66-1.25) mg/dL Estimated GFR 37 L (>60) mL/min BUN/Creatinine Ratio 21.9 (6-22) Glucose 258 H (80-110) mg/dL Lactate (0.7-2.1) mmol/L Calcium 8.8 (8.4-10.2) mg/dL Total Bilirubin 0.8 (0.2-1.3) mg/dL AST 40 (17-59) IU/L ALT 25 (<50) IU/L Alkaline Phosphatase 100 (38-126) U/L Total Creatine Kinase 43 L (55-170) U/L CK-MB (CK-2) TNP CK-MB (CK-2) Rel Index TNP Troponin I < 0.012 (0.01-0.034) ng/mL Total Protein 7.1 (6.3-8.2) g/dL Albumin 3.8 (3.5-5.0) g/dL Globulin 3.3 (1.7-4.1) g/dL Albumin/Globulin Ratio 1.2 (1.0-2.8) Lipase 114 (23-300) U/L Urine RBC (0-5/HPF) Urine WBC (0-5/HPF) Urine Bacteria (None) Ur Culture Indicated? Digoxin (0.8-2.0) ng/mL SARS-CoV-2 (PCR) (Negative) Influenza A (RT-PCR) (NEGATIVE) Influenza B (RT-PCR) (NEGATIVE) RSV (PCR) (Negative) 05/17/22 05/17/22 05/17/22 Range/Units 09:30 09:30 09:50 WBC (4.5-11.0) X10^3/uL RBC (4.5-5.9) X10^6/uL Hgb (13.5-17.5) g/dL Hct (41-53) % MCV (80-100) fL MCH (26-34) PG MCHC (30-36) % RDW (11.6-14.8) % Plt Count (150-400) X10^3/uL Neut % (Auto) (50-75) % Lymph % (Auto) (25-40) % [place] % (Auto) (3-14) % Eos % (Auto) (2-4) % Baso % (Auto) (0-2) % Neut # (Auto) (6959-1266) /uL Lymph # (Auto) (7297-6444) /uL [place] # (Auto) (0-900) /uL Eos # (Auto) (0-450) /uL Baso # (Auto) (0-100) /uL PT 61.0 H (10.1-12.7) SECONDS INR 5.2 H* (0.9-1.3) Sodium (137-145) mmol/L Potassium (3.4-5.1) mmol/L Chloride (98-107) mmol/L Carbon Dioxide (22-32) mmol/L BUN (9-20) mg/dL Creatinine (0.66-1.25) mg/dL Estimated GFR (>60) mL/min BUN/Creatinine Ratio (6-22) Glucose (80-110) mg/dL Lactate 1.6 (0.7-2.1) mmol/L Calcium (8.4-10.2) mg/dL Total Bilirubin (0.2-1.3) mg/dL AST (17-59) IU/L ALT (<50) IU/L Alkaline Phosphatase (38-126) U/L Total Creatine Kinase (55-170) U/L CK-MB (CK-2) CK-MB (CK-2) Rel Index Troponin I (0.01-0.034) ng/mL Total Protein (6.3-8.2) g/dL Albumin (3.5-5.0) g/dL Globulin (1.7-4.1) g/dL Albumin/Globulin Ratio (1.0-2.8) Lipase (23-300) U/L Urine RBC (0-5/HPF) Urine WBC (0-5/HPF) Urine Bacteria (None) Ur Culture Indicated? Digoxin (0.8-2.0) ng/mL SARS-CoV-2 (PCR) Negative (Negative) Influenza A (RT-PCR) Flu a negative (NEGATIVE) Influenza B (RT-PCR) Flu b negative (NEGATIVE) RSV (PCR) Negative (Negative) 05/17/22 05/17/22 05/17/22 Range/Units 13:09 21:30 21:30 WBC 5.5 (4.5-11.0) X10^3/uL RBC 3.32 L (4.5-5.9) X10^6/uL Hgb 9.9 L (13.5-17.5) g/dL Hct 29.1 L (41-53) % MCV 87.5 (80-100) fL MCH 29.8 (26-34) PG MCHC 34.0 (30-36) % RDW 15.0 H (11.6-14.8) % Plt Count 162 (150-400) X10^3/uL Neut % (Auto) 64.8 (50-75) % Lymph % (Auto) 23.8 L (25-40) % [place] % (Auto) 7.2 (3-14) % Eos % (Auto) 3.2 (2-4) % Baso % (Auto) 1.0 (0-2) % Neut # (Auto) 3600 (4630-8832) /uL Lymph # (Auto) 1300 (2726-4606) /uL [place] # (Auto) 400 (0-900) /uL Eos # (Auto) 200 (0-450) /uL Baso # (Auto) 100 (0-100) /uL PT 50.8 H D (10.1-12.7) SECONDS INR 4.4 H (0.9-1.3) Sodium (137-145) mmol/L Potassium (3.4-5.1) mmol/L Chloride (98-107) mmol/L Carbon Dioxide (22-32) mmol/L BUN (9-20) mg/dL Creatinine (0.66-1.25) mg/dL Estimated GFR (>60) mL/min BUN/Creatinine Ratio (6-22) Glucose (80-110) mg/dL Lactate (0.7-2.1) mmol/L Calcium (8.4-10.2) mg/dL Total Bilirubin (0.2-1.3) mg/dL AST (17-59) IU/L ALT (<50) IU/L Alkaline Phosphatase (38-126) U/L Total Creatine Kinase (55-170) U/L CK-MB (CK-2) CK-MB (CK-2) Rel Index Troponin I (0.01-0.034) ng/mL Total Protein (6.3-8.2) g/dL Albumin (3.5-5.0) g/dL Globulin (1.7-4.1) g/dL Albumin/Globulin Ratio (1.0-2.8) Lipase (23-300) U/L Urine RBC 0-1/hpf (0-5/HPF) Urine WBC 5-10/hpf H (0-5/HPF) Urine Bacteria Moderate (10-30) H (None) Ur Culture Indicated? Specimen cultured Digoxin (0.8-2.0) ng/mL SARS-CoV-2 (PCR) (Negative) Influenza A (RT-PCR) (NEGATIVE) Influenza B (RT-PCR) (NEGATIVE) RSV (PCR) (Negative) 05/17/22 05/18/22 05/18/22 Range/Units 21:30 07:43 07:43 WBC 4.7 (4.5-11.0) X10^3/uL RBC 3.22 L (4.5-5.9) X10^6/uL Hgb 9.6 L (13.5-17.5) g/dL Hct 27.9 L (41-53) % MCV 86.5 (80-100) fL MCH 29.8 (26-34) PG MCHC 34.4 (30-36) % RDW 14.8 (11.6-14.8) % Plt Count 149 L (150-400) X10^3/uL Neut % (Auto) 65.3 (50-75) % Lymph % (Auto) 23.2 L (25-40) % [place] % (Auto) 7.5 (3-14) % Eos % (Auto) 2.6 (2-4) % Baso % (Auto) 1.4 (0-2) % Neut # (Auto) 3100 (0416-7313) /uL Lymph # (Auto) 1100 (1900-1670) /uL [place] # (Auto) 400 (0-900) /uL Eos # (Auto) 100 (0-450) /uL Baso # (Auto) 100 (0-100) /uL PT 43.3 H D (10.1-12.7) SECONDS INR 3.7 H (0.9-1.3) Sodium 138 (137-145) mmol/L Potassium 3.9 (3.4-5.1) mmol/L Chloride 105 (98-107) mmol/L Carbon Dioxide 27 (22-32) mmol/L BUN 37 H (9-20) mg/dL Creatinine 1.61 H (0.66-1.25) mg/dL Estimated GFR 41 L (>60) mL/min BUN/Creatinine Ratio 23.0 H (6-22) Glucose 333 H (80-110) mg/dL Lactate (0.7-2.1) mmol/L Calcium 7.9 L (8.4-10.2) mg/dL Total Bilirubin (0.2-1.3) mg/dL AST (17-59) IU/L ALT (<50) IU/L Alkaline Phosphatase (38-126) U/L Total Creatine Kinase (55-170) U/L CK-MB (CK-2) CK-MB (CK-2) Rel Index Troponin I (0.01-0.034) ng/mL Total Protein (6.3-8.2) g/dL Albumin (3.5-5.0) g/dL Globulin (1.7-4.1) g/dL Albumin/Globulin Ratio (1.0-2.8) Lipase (23-300) U/L Urine RBC (0-5/HPF) Urine WBC (0-5/HPF) Urine Bacteria (None) Ur Culture Indicated? Digoxin (0.8-2.0) ng/mL SARS-CoV-2 (PCR) (Negative) Influenza A (RT-PCR) (NEGATIVE) Influenza B (RT-PCR) (NEGATIVE) RSV (PCR) (Negative) 05/18/22 05/18/22 Range/Units 07:43 08:41 WBC (4.5-11.0) X10^3/uL RBC (4.5-5.9) X10^6/uL Hgb (13.5-17.5) g/dL Hct (41-53) % MCV (80-100) fL MCH (26-34) PG MCHC (30-36) % RDW (11.6-14.8) % Plt Count (150-400) X10^3/uL Neut % (Auto) (50-75) % Lymph % (Auto) (25-40) % [place] % (Auto) (3-14) % Eos % (Auto) (2-4) % Baso % (Auto) (0-2) % Neut # (Auto) (1185-3732) /uL Lymph # (Auto) (6450-1518) /uL [place] # (Auto) (0-900) /uL Eos # (Auto) (0-450) /uL Baso # (Auto) (0-100) /uL PT (10.1-12.7) SECONDS INR (0.9-1.3) Sodium 137 (137-145) mmol/L Potassium 3.6 (3.4-5.1) mmol/L Chloride 107 (98-107) mmol/L Carbon Dioxide 25 (22-32) mmol/L BUN 35 H (9-20) mg/dL Creatinine 1.43 H (0.66-1.25) mg/dL Estimated GFR 48 L (>60) mL/min BUN/Creatinine Ratio 24.5 H (6-22) Glucose 271 H (80-110) mg/dL Lactate (0.7-2.1) mmol/L Calcium 7.7 L (8.4-10.2) mg/dL Total Bilirubin 0.7 (0.2-1.3) mg/dL AST 32 (17-59) IU/L ALT 21 (<50) IU/L Alkaline Phosphatase 77 (38-126) U/L Total Creatine Kinase (55-170) U/L CK-MB (CK-2) CK-MB (CK-2) Rel Index Troponin I (0.01-0.034) ng/mL Total Protein 5.7 L (6.3-8.2) g/dL Albumin 2.9 L (3.5-5.0) g/dL Globulin 2.8 (1.7-4.1) g/dL Albumin/Globulin Ratio 1.0 (1.0-2.8) Lipase 88 (23-300) U/L Urine RBC (0-5/HPF) Urine WBC (0-5/HPF) Urine Bacteria (None) Ur Culture Indicated? Digoxin 0.4 L (0.8-2.0) ng/mL SARS-CoV-2 (PCR) (Negative) Influenza A (RT-PCR) (NEGATIVE) Influenza B (RT-PCR) (NEGATIVE) RSV (PCR) (Negative) Point of Care Testing Glucose POC 202 Urine Dip Bedside Urine Glucose 500 mg/dl Bedside Urine Bilirubin - Negative Bedside Urine Ketone - Negative Urine Specific [place] 1.015 Bedside Urine Occult Blood - Negative Bedside Urine pH 6.0 Bedside Urine Protein +/- 15 Bedside Urine Urobilinogen - Negative Bedside Urine Nitrite - Negative Bedside Urine Leukocytes + 70 Esterase MDM Narrative Medical decision making narrative: Patient 86-year-old male significant medical history of insulin-dependent diabetes, chronic kidney disease, kidney stones prostate cancer presents today with generalized fatigue and 2 episodes of diarrhea. Blood work is overall reassuring his abdomen is nontender he really has not had any episodes of diarrhea while in the emergency department. Bigger problem is more social. He has a restraining order against him and is not allowed to go home. Some how his medications and all his belongings his son came and took them to the house that he is not out go to. Social work saw and evaluated patient physical therapy also came to evaluate patient. Patient is quite weak difficulty caring for self. At this time does not meet admission criteria. Patient has [employer] insurance need approval will need social work continued involvement for dischar ge planning. Dr Grady: overnight 05/17-05/18: Received turned over. Review patient's history and physical exam and workup up to this point. Patient is medically clear. His INR is improving. Social work has seen the patient and the plan would be his for social work to be reinvolved today to follow-up on SNF placement. Care turned over to day provider to continue to observe until disposition. Dr. Yusuf 05/18/22: Patient signed out to myself. Patient has significant medical history insulin-dependent diabetes, chronic kidney disease, kidney stones, prostate cancer on warfarin. Blood work shows anemia, chronic kidney disease appears stable, patient is hyperglycemic but does not appear to be in DKA or hyperosmolar state he does have ketones in urine. Patient was actually seen by myself earlier in April and his pump had been reviewed and he had been in the 300 range daily for at least a month for his glucose with lows in the morning about 150 range. Patient is labs repeated throughout the day INR is down trending, plan to continue to monitor hemoglobin and recent labs this morning including CBC, CMP, lipase, will check stool occult if hemoglobin continues to trend down words. Patient appears to have sliding scale ordered along with his Lantus, Lasix and received a L of fluids yesterday which may have contributed to some delusional anemia rechecking hemoglobin. Patient appears to have some his home medications ordered but will check on his statin, midodrine, levothyroxine and digoxin in order these if he is still taking them. Social work has seen the patient and are looking at SNF placement is patient is not allowed to return home at this time. Patient seen independently evaluated. He notes that the glucose has not been well controlled. He is getting less than his typical discussed that we can adjust this. Does not appear that he is taking his midodrine currently but is still on statin, levothyroxine and digoxin. Digoxin was held this morning as heart rate was in the 40s, patient is to meet with social work today if it seems likely he is going to continue to be here longer than this afternoon we will consult with hospitalist for additional help with medical management. Patient urine culture showed group B strep positive [id number]. Patient denies any urinary symptoms. He has not had any black or bloody stools. Patient's Lantus was increased to 40 units, teach him to a high insulin sliding scale. Patient labs continued to be stable. I did discuss with the hospitalist for consultation for medical management as he will likely be here several days after talking to social work looking for SNF placement. <Anson Pedraza MD - Last Filed: 05/26/22 07:22> Lab Data Labs: Lab Results 05/17/22 05/17/22 05/17/22 Range/Units 09:30 09:30 09:30 WBC 6.4 (4.5-11.0) X10^3/uL RBC 3.87 L (4.5-5.9) X10^6/uL Hgb 11.3 L (13.5-17.5) g/dL Hct 33.9 L (41-53) % MCV 87.6 (80-100) fL MCH 29.1 (26-34) PG MCHC 33.3 (30-36) % RDW 15.1 H (11.6-14.8) % Plt Count 199 (150-400) X10^3/uL Neut % (Auto) 61.3 (50-75) % Lymph % (Auto) 27.7 (25-40) % [place] % (Auto) 8.1 (3-14) % Eos % (Auto) 2.3 (2-4) % Baso % (Auto) 0.6 (0-2) % Neut # (Auto) 3900 (6356-1586) /uL Lymph # (Auto) 1800 (6750-8772) /uL [place] # (Auto) 500 (0-900) /uL Eos # (Auto) 100 (0-450) /uL Baso # (Auto) 0 (0-100) /uL PT (10.1-12.7) SECONDS INR (0.9-1.3) Sodium 138 (137-145) mmol/L Potassium 4.0 (3.4-5.1) mmol/L Chloride 103 (98-107) mmol/L Carbon Dioxide 30 (22-32) mmol/L BUN 39 H (9-20) mg/dL Creatinine 1.78 H (0.66-1.25) mg/dL Estimated GFR 37 L (>60) mL/min BUN/Creatinine Ratio 21.9 (6-22) Glucose 258 H (80-110) mg/dL Lactate (0.7-2.1) mmol/L Calcium 8.8 (8.4-10.2) mg/dL Total Bilirubin 0.8 (0.2-1.3) mg/dL AST 40 (17-59) IU/L ALT 25 (<50) IU/L Alkaline Phosphatase 100 (38-126) U/L Total Creatine Kinase 43 L (55-170) U/L CK-MB (CK-2) TNP CK-MB (CK-2) Rel Index TNP Troponin I < 0.012 (0.01-0.034) ng/mL Total Protein 7.1 (6.3-8.2) g/dL Albumin 3.8 (3.5-5.0) g/dL Globulin 3.3 (1.7-4.1) g/dL Albumin/Globulin Ratio 1.2 (1.0-2.8) Lipase 114 (23-300) U/L Urine RBC (0-5/HPF) Urine WBC (0-5/HPF) Urine Bacteria (None) Ur Culture Indicated? Digoxin (0.8-2.0) ng/mL SARS-CoV-2 (PCR) (Negative) Influenza A (RT-PCR) (NEGATIVE) Influenza B (RT-PCR) (NEGATIVE) RSV (PCR) (Negative) 05/17/22 05/17/22 05/17/22 Range/Units 09:30 09:30 09:50 WBC (4.5-11.0) X10^3/uL RBC (4.5-5.9) X10^6/uL Hgb (13.5-17.5) g/dL Hct (41-53) % MCV (80-100) fL MCH (26-34) PG MCHC (30-36) % RDW (11.6-14.8) % Plt Count (150-400) X10^3/uL Neut % (Auto) (50-75) % Lymph % (Auto) (25-40) % [place] % (Auto) (3-14) % Eos % (Auto) (2-4) % Baso % (Auto) (0-2) % Neut # (Auto) (8385-4314) /uL Lymph # (Auto) (9406-9278) /uL [place] # (Auto) (0-900) /uL Eos # (Auto) (0-450) /uL Baso # (Auto) (0-100) /uL PT 61.0 H (10.1-12.7) SECONDS INR 5.2 H* (0.9-1.3) Sodium (137-145) mmol/L Potassium (3.4-5.1) mmol/L Chloride (98-107) mmol/L Carbon Dioxide (22-32) mmol/L BUN (9-20) mg/dL Creatinine (0.66-1.25) mg/dL Estimated GFR (>60) mL/min BUN/Creatinine Ratio (6-22) Glucose (80-110) mg/dL Lactate 1.6 (0.7-2.1) mmol/L Calcium (8.4-10.2) mg/dL Total Bilirubin (0.2-1.3) mg/dL AST (17-59) IU/L ALT (<50) IU/L Alkaline Phosphatase (38-126) U/L Total Creatine Kinase (55-170) U/L CK-MB (CK-2) CK-MB (CK-2) Rel Index Troponin I (0.01-0.034) ng/mL Total Protein (6.3-8.2) g/dL Albumin (3.5-5.0) g/dL Globulin (1.7-4.1) g/dL Albumin/Globulin Ratio (1.0-2.8) Lipase (23-300) U/L Urine RBC (0-5/HPF) Urine WBC (0-5/HPF) Urine Bacteria (None) Ur Culture Indicated? Digoxin (0.8-2.0) ng/mL SARS-CoV-2 (PCR) Negative (Negative) Influenza A (RT-PCR) Flu a negative (NEGATIVE) Influenza B (RT-PCR) Flu b negative (NEGATIVE) RSV (PCR) Negative (Negative) 05/17/22 05/17/22 05/17/22 Range/Units 13:09 21:30 21:30 WBC 5.5 (4.5-11.0) X10^3/uL RBC 3.32 L (4.5-5.9) X10^6/uL Hgb 9.9 L (13.5-17.5) g/dL Hct 29.1 L (41-53) % MCV 87.5 (80-100) fL MCH 29.8 (26-34) PG MCHC 34.0 (30-36) % RDW 15.0 H (11.6-14.8) % Plt Count 162 (150-400) X10^3/uL Neut % (Auto) 64.8 (50-75) % Lymph % (Auto) 23.8 L (25-40) % [place] % (Auto) 7.2 (3-14) % Eos % (Auto) 3.2 (2-4) % Baso % (Auto) 1.0 (0-2) % Neut # (Auto) 3600 (9964-2394) /uL Lymph # (Auto) 1300 (3252-6678) /uL [place] # (Auto) 400 (0-900) /uL Eos # (Auto) 200 (0-450) /uL Baso # (Auto) 100 (0-100) /uL PT 50.8 H D (10.1-12.7) SECONDS INR 4.4 H (0.9-1.3) Sodium (137-145) mmol/L Potassium (3.4-5.1) mmol/L Chloride (98-107) mmol/L Carbon Dioxide (22-32) mmol/L BUN (9-20) mg/dL Creatinine (0.66-1.25) mg/dL Estimated GFR (>60) mL/min BUN/Creatinine Ratio (6-22) Glucose (80-110) mg/dL Lactate (0.7-2.1) mmol/L Calcium (8.4-10.2) mg/dL Total Bilirubin (0.2-1.3) mg/dL AST (17-59) IU/L ALT (<50) IU/L Alkaline Phosphatase (38-126) U/L Total Creatine Kinase (55-170) U/L CK-MB (CK-2) CK-MB (CK-2) Rel Index Troponin I (0.01-0.034) ng/mL Total Protein (6.3-8.2) g/dL Albumin (3.5-5.0) g/dL Globulin (1.7-4.1) g/dL Albumin/Globulin Ratio (1.0-2.8) Lipase (23-300) U/L Urine RBC 0-1/hpf (0-5/HPF) Urine WBC 5-10/hpf H (0-5/HPF) Urine Bacteria Moderate (10-30) H (None) Ur Culture Indicated? Specimen cultured Digoxin (0.8-2.0) ng/mL SARS-CoV-2 (PCR) (Negative) Influenza A (RT-PCR) (NEGATIVE) Influenza B (RT-PCR) (NEGATIVE) RSV (PCR) (Negative) 05/17/22 05/18/22 05/18/22 Range/Units 21:30 07:43 07:43 WBC 4.7 (4.5-11.0) X10^3/uL RBC 3.22 L (4.5-5.9) X10^6/uL Hgb 9.6 L (13.5-17.5) g/dL Hct 27.9 L (41-53) % MCV 86.5 (80-100) fL MCH 29.8 (26-34) PG MCHC 34.4 (30-36) % RDW 14.8 (11.6-14.8) % Plt Count 149 L (150-400) X10^3/uL Neut % (Auto) 65.3 (50-75) % Lymph % (Auto) 23.2 L (25-40) % [place] % (Auto) 7.5 (3-14) % Eos % (Auto) 2.6 (2-4) % Baso % (Auto) 1.4 (0-2) % Neut # (Auto) 3100 (7353-0099) /uL Lymph # (Auto) 1100 (5149-3272) /uL [place] # (Auto) 400 (0-900) /uL Eos # (Auto) 100 (0-450) /uL Baso # (Auto) 100 (0-100) /uL PT 43.3 H D (10.1-12.7) SECONDS INR 3.7 H (0.9-1.3) Sodium 138 (137-145) mmol/L Potassium 3.9 (3.4-5.1) mmol/L Chloride 105 (98-107) mmol/L Carbon Dioxide 27 (22-32) mmol/L BUN 37 H (9-20) mg/dL Creatinine 1.61 H (0.66-1.25) mg/dL Estimated GFR 41 L (>60) mL/min BUN/Creatinine Ratio 23.0 H (6-22) Glucose 333 H (80-110) mg/dL Lactate (0.7-2.1) mmol/L Calcium 7.9 L (8.4-10.2) mg/dL Total Bilirubin (0.2-1.3) mg/dL AST (17-59) IU/L ALT (<50) IU/L Alkaline Phosphatase (38-126) U/L Total Creatine Kinase (55-170) U/L CK-MB (CK-2) CK-MB (CK-2) Rel Index Troponin I (0.01-0.034) ng/mL Total Protein (6.3-8.2) g/dL Albumin (3.5-5.0) g/dL Globulin (1.7-4.1) g/dL Albumin/Globulin Ratio (1.0-2.8) Lipase (23-300) U/L Urine RBC (0-5/HPF) Urine WBC (0-5/HPF) Urine Bacteria (None) Ur Culture Indicated? Digoxin (0.8-2.0) ng/mL SARS-CoV-2 (PCR) (Negative) Influenza A (RT-PCR) (NEGATIVE) Influenza B (RT-PCR) (NEGATIVE) RSV (PCR) (Negative) 05/18/22 05/18/22 Range/Units 07:43 08:41 WBC (4.5-11.0) X10^3/uL RBC (4.5-5.9) X10^6/uL Hgb (13.5-17.5) g/dL Hct (41-53) % MCV (80-100) fL MCH (26-34) PG MCHC (30-36) % RDW (11.6-14.8) % Plt Count (150-400) X10^3/uL Neut % (Auto) (50-75) % Lymph % (Auto) (25-40) % [place] % (Auto) (3-14) % Eos % (Auto) (2-4) % Baso % (Auto) (0-2) % Neut # (Auto) (9228-7265) /uL Lymph # (Auto) (1721-4905) /uL [place] # (Auto) (0-900) /uL Eos # (Auto) (0-450) /uL Baso # (Auto) (0-100) /uL PT (10.1-12.7) SECONDS INR (0.9-1.3) Sodium 137 (137-145) mmol/L Potassium 3.6 (3.4-5.1) mmol/L Chloride 107 (98-107) mmol/L Carbon Dioxide 25 (22-32) mmol/L BUN 35 H (9-20) mg/dL Creatinine 1.43 H (0.66-1.25) mg/dL Estimated GFR 48 L (>60) mL/min BUN/Creatinine Ratio 24.5 H (6-22) Glucose 271 H (80-110) mg/dL Lactate (0.7-2.1) mmol/L Calcium 7.7 L (8.4-10.2) mg/dL Total Bilirubin 0.7 (0.2-1.3) mg/dL AST 32 (17-59) IU/L ALT 21 (<50) IU/L Alkaline Phosphatase 77 (38-126) U/L Total Creatine Kinase (55-170) U/L CK-MB (CK-2) CK-MB (CK-2) Rel Index Troponin I (0.01-0.034) ng/mL Total Protein 5.7 L (6.3-8.2) g/dL Albumin 2.9 L (3.5-5.0) g/dL Globulin 2.8 (1.7-4.1) g/dL Albumin/Globulin Ratio 1.0 (1.0-2.8) Lipase 88 (23-300) U/L Urine RBC (0-5/HPF) Urine WBC (0-5/HPF) Urine Bacteria (None) Ur Culture Indicated? Digoxin 0.4 L (0.8-2.0) ng/mL SARS-CoV-2 (PCR) (Negative) Influenza A (RT-PCR) (NEGATIVE) Influenza B (RT-PCR) (NEGATIVE) RSV (PCR) (Negative) Point of Care Testing Glucose POC 202 Urine Dip Bedside Urine Glucose 500 mg/dl Bedside Urine Bilirubin - Negative Bedside Urine Ketone - Negative Urine Specific [place] 1.015 Bedside Urine Occult Blood - Negative Bedside Urine pH 6.0 Bedside Urine Protein +/- 15 Bedside Urine Urobilinogen - Negative Bedside Urine Nitrite - Negative Bedside Urine Leukocytes + 70 Esterase Discharge Plan Departure Patient Disposition: Home Clinical Impression: Hyperglycemia, CKD (chronic kidney disease), Supratherapeutic INR Activity Restrictions/Additional Instructions: I recommend that you continue to take all of your medications as directed. It is important that you follow-up with your primary doctor. Return to the e mergency department for new symptoms. Prescriptions: No Action mupirocin 2 % ointment 1 applic topical TID Qty: 15 0RF midodrine 5 mg Tablet 5 mg PO 0600,1200,1800 Qty: 15 0RF Rx Instructions: Pt states his doctor took him off of this for a while; hes not sure why Takes once daily in am digoxin 125 mcg (0.125 mg) Tablet 0.125 mg PO DAILY Qty: 30 0RF Rx Instructions: AM lidocaine 5 % adhesive patch,medicated 1 patch topical DAILY PRN (Reason: pain) Qty: 15 0RF Rx Instructions: leave on most painful area for up to 12 hrs diclofenac sodium [Voltaren Arthritis Pain] 1 % gel 2 g topical QID Qty: 100 0RF Rx Instructions: apply to single elbow, wrist or hand; for hand includes palm/fingers/back of hand furosemide 20 mg tablet 20 mg PO BID Rx Instructions: AM hydrocodone-acetaminophen 5-325 mg tablet 1 tab PO Q6HR Rx Instructions: Take 1 tablet by mouth every 6 hours as needed for pain. max daily amount ; 4 tablets. Max 4,000mg day acetaminophen all sources insulin lispro [Humalog KwikPen Insulin] 100 unit/mL Insulin Pen 1 sliding scale dose SUBCUT USEASDIRECTD Rx Instructions: inject 12 units subcutaneously at breakfast' 9 units at lunch; 15 units at dinner. Max units per day:36 levothyroxine 50 mcg Tablet 50 mcg PO MOTUWETHFRSA Rx Instructions: I tablet by mouth daily, except 2 tablets by mouth on Sundays warfarin [Coumadin] 5 mg tablet 5 mg PO 3XW Rx Instructions: Take 1 tablet by mouth daily on Wednesday and Wednesday docusate sodium 100 mg 100 mg PO DAILY warfarin 5 mg tablet 2.5 mg PO 4XW Rx Instructions: , Wednesday, , Sat, Sun rosuvastatin 5 mg tablet 5 mg PO DAILY Rx Instructions: AM sennosides [senna] 8.6 mg tablet 8.6 mg PO DAILY PRN (Reason: Constipation) triamcinolone acetonide 0.1 % cream 1 applic topical DAILY PRN (Reason: Rash) mecobalamin (vitamin B12) 1,000 mcg tablet,chewable 1,000 mcg PO DAILY Lantus Solostar U-100 Insulin 100 unit/mL (3 mL) insulin pen 38 unit SUBCUT QAM Referrals: Lo Figueroa MD [Primary Care Provider] - Stand Alone Forms: Patient Portal/API
[2022-05-17 10:55] LABS: Influenza A - CEPHEID Flu A NEGATIVE (NEGATIVE); Influenza B - CEPHEID Flu B NEGATIVE (NEGATIVE); Respiratory Syncytial Virus Negative (Negative)
[2022-05-17] MEDS: SODIUM CHLORIDE 0.9% 1,000 ML 1000 ML IV (11:04)
[2022-05-17 11:11] LABS: COVID-19 CEPHEID 4-PLEX PCR Negative (Negative)
[2022-05-17 13:02] LABS: Creatine Kinase 43 U/L (55-170)
[2022-05-17 13:03] LABS: Lactate (Lactic Acid) 1.6 mmol/L (0.7-2.1)
[2022-05-17 13:08] LABS: INR 5.2 (0.9-1.3)
[2022-05-17 13:15] LABS: Troponin I < 0.012 ng/mL (0.01-0.034)
[2022-05-17 13:39] LABS: Bacteria Urine Moderate (10-30); Culture Indicated Urine Specimen Cultured; RBC Urine 0-1/HPF (0-5/HPF); WBC Urine 5-10/HPF (0-5/HPF)
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
[2022-05-17] MEDS: HYDROCODONE/ACET 5/325 TABLET 1 TAB PO (16:52)
[2022-05-17] MEDS: FUROSEMIDE 20 MG TABLET PO (21:36)
[2022-05-17] MEDS: INSULIN GLARGINE 100 UNIT/ML 3ML PEN 30 UNIT SUBCUT (21:40)
[2022-05-17 21:41] LABS: Add Manual Diff / Slide Review NO; Basophils Absolute Auto 100 /uL (0-100); Eosinophils Absolute Auto 200 /uL (0-450); Eosinophils Percent Auto 3.2 % (2-4); Hematocrit 29.1 % (41-53); Hemoglobin 9.9 g/dL (13.5-17.5); Lymphocytes Absolute Auto 1300 /uL (1100-4500); Lymphocytes Percent Auto 23.8 % (25-40); Mean Corpuscular Hemoglobin 29.8 PG (26-34); Mean Corpuscular Volume 87.5 fL (80-100); Monocytes Absolute Auto 400 /uL (0-900); Monocytes Percent Auto 7.2 % (3-14); Neutrophils Absolute Auto 3600 /uL (1500-7000); Neutrophils Percent Auto 64.8 % (50-75); Platelet Count 162 X10^3/uL (150-400); Red Blood Cell Count 3.32 X10^6/uL (4.5-5.9); White Blood Cell Count 5.5 X10^3/uL (4.5-11.0)
[2022-05-17] MEDS: INSULIN LISPRO 100 UNIT/ML 3ML VIAL SUBCUT (21:43)
[2022-05-17 21:47] LABS: INR 4.4 (0.9-1.3); Prothrombin Time 50.8 SECONDS (10.1-12.7)
[2022-05-17 21:50] LABS: Blood Urea Nitrogen 37 mg/dL (9-20); Calcium 7.9 mg/dL (8.4-10.2); Carbon Dioxide 27 mmol/L (22-32); Chloride 105 mmol/L (98-107); Estimated Glomerular Filt Rate 41 mL/min (>60); Glucose 333 mg/dL (80-110); HEMOLYSIS 17 (0-50); Potassium 3.9 mmol/L (3.4-5.1); Sodium 138 mmol/L (137-145)
[2022-05-18] VITALS (62 sets, daily range): BP systolic 91–156; BP diastolic 54–110; PULSE 58–111; RESP 10–33; TEMP 36.6; O2SAT 93–100
[2022-05-18 07:53] LABS: Add Manual Diff / Slide Review NO; Basophils Absolute Auto 100 /uL (0-100); Basophils Percent Auto 1.4 % (0-2); Eosinophils Absolute Auto 100 /uL (0-450); Eosinophils Percent Auto 2.6 % (2-4); Hematocrit 27.9 % (41-53); Hemoglobin 9.6 g/dL (13.5-17.5); Lymphocytes Absolute Auto 1100 /uL (1100-4500); Lymphocytes Percent Auto 23.2 % (25-40); Mean Corpuscular HGB Conc 34.4 % (30-36); Mean Corpuscular Hemoglobin 29.8 PG (26-34); Mean Corpuscular Volume 86.5 fL (80-100); Monocytes Absolute Auto 400 /uL (0-900); Monocytes Percent Auto 7.5 % (3-14); Neutrophils Absolute Auto 3100 /uL (1500-7000); Neutrophils Percent Auto 65.3 % (50-75); Platelet Count 149 X10^3/uL (150-400); Red Blood Cell Count 3.22 X10^6/uL (4.5-5.9); Red Cell Distribution Width 14.8 % (11.6-14.8); White Blood Cell Count 4.7 X10^3/uL (4.5-11.0)
[2022-05-18 07:59] LABS: INR 3.7 (0.9-1.3); Prothrombin Time 43.3 SECONDS (10.1-12.7)
[2022-05-18 08:03] LABS: Alanine Aminotransferase 21 IU/L (<50); Albumin 2.9 g/dL (3.5-5.0); Alkaline Phosphatase 77 U/L (38-126); Aspartate Aminotransferase 32 IU/L (17-59); BUN Creatinine Ratio 24.5 (6-22); Bilirubin Total 0.7 mg/dL (0.2-1.3); Blood Urea Nitrogen 35 mg/dL (9-20); Calcium 7.7 mg/dL (8.4-10.2); Carbon Dioxide 25 mmol/L (22-32); Chloride 107 mmol/L (98-107); Estimated Glomerular Filt Rate 48 mL/min (>60); Globulin 2.8 g/dL (1.7-4.1); Glucose 271 mg/dL (80-110); HEMOLYSIS 16 (0-50); Lipase 88 U/L (23-300); Potassium 3.6 mmol/L (3.4-5.1); Sodium 137 mmol/L (137-145); Total Protein 5.7 g/dL (6.3-8.2)
[2022-05-18] MEDS: FUROSEMIDE 20 MG TABLET PO ×2 (08:07→21:22)
[2022-05-18] MEDS: INSULIN LISPRO 100 UNIT/ML 3ML VIAL SUBCUT ×4 (08:16→21:36)
[2022-05-18] MEDS: LEVOTHYROXINE 50 MCG TABLET PO (08:37)
[2022-05-18 09:28] LABS: Digoxin 0.4 ng/mL (0.8-2.0)
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
--- NOTE | 2022-05-18 15:56 | PC.NURSE ---
Pts bed linen all changed,brief fitted and pulled up on patient. Pt offered clean gown,he declined and wanted to keep his shirt on.
--- NOTE | 2022-05-18 17:09 | DIET.CONS2 ---
Dietary Inpatient Consultation Note Admission Date: RD screening 86y ED patient due to repeat visits with hyperglycemia. Pt has not been weighed since July 2021, pt reports consuming 1 meal daily (high glucose load breakfast) at hotel with food and housing insecurity and frequent hyperglycemia with ketones in urine. Pt would benefit from weight capture to assess for formal malnutrition r/t poorly managed DM and food/housing insecurity. Diet: 05/18/22 Breakfast Carbohydrate Consistent Diet Diet Modifications: Safety Tray needed?: No Carbohydrate level: Large (4 CHO) Bedtime snack: Yes Nutrition Percent Meal Consumed 100% 05/18/22 10:21 Percent Meal Consumed 100% dinner 05/17/22 19:55 Electronically Signed by: Cami Francis 05/18/22 17:09 Clinical Dietitian [address] [id number]
--- NOTE | 2022-05-18 17:35 | CM.DPNOTE ---
Discharge Planning Continued Data: Pt is an 86yo male who was brought to the ED by EMS yesterday 05/17 for weakness. Pt did not meet criteria for medical admission but was seen by PT and assessed to meet criteria for SNF placement for weakness and fall risk. This SW began SNF referral process. Pt is covered by [employer] and will need pre-authorization. pre-authorization process began last night but was not able to be reviewed until today. Initial referral sent to SNF's last night pending insurance authorization. MITESH spoke with Maria Isabel at [facility]. She is requesting notes from OT. OT had not seen patient and MD placed order for consult. Maria Isabel updated and MITESH faxed OT note after evaluation was completed. MITESH spoke with SNF's to whom pt was referred last night, updates as follows: [facility]- received the packet but do not anticipate openings until later this week. [facility]- received the packet and referral is under review. [facility]- received the packet and referral is under review. [facility]- decline the pt citing concern he does not have a concrete discharge plan. MITESH also faxed OT evaluation to SNF facility to update pt referral. MITESH contacted APS worker Janet [phone] to update on patients current ED admission. Voicemail left at 16:20. MITESH contacted patient?s son/ DPOA Beka [phone] to update him on current status of patients plan of care and SNF referral process. Spoke with Marjorie. Beka is not home and will not be this evening. He will be home all day tomorrow. Plan: Pt remains in the ED pending placement. He has been seen by PT and OT who both recommend placement in SNF. [facility] pre-authorization remains in process. Pt has been referred to numerous SNF's as above. Tony Wells, PIPE PROCESSOR, WOOD CAR BUILDER
[2022-05-18] MEDS: ATORVASTATIN 20 MG TABLET 10 MG PO ×2 (21:22→21:44)
[2022-05-18] MEDS: INSULIN GLARGINE 100 UNIT/ML 3ML PEN 40 UNIT SUBCUT (21:23)
[2022-05-18] MEDS: HYDROCODONE/ACET 5/325 TABLET 1 TAB PO (21:28)
[2022-05-19] VITALS (58 sets, daily range): BP systolic 100–153; BP diastolic 56–92; PULSE 61–143; RESP 12–34; O2SAT 91–100
[2022-05-19] MEDS: INSULIN LISPRO 100 UNIT/ML 3ML VIAL SUBCUT ×3 (07:47→21:12)
--- NOTE | 2022-05-19 07:52 | PC.NURSE ---
Pharmacy called 2x for levothyroxine. Pharmacist in ED assisting with a code. Will give dose to pt prior to lunch, once medication arrives. Instructions say give 30 minutes before meal. Physician aware.
[2022-05-19] MEDS: FUROSEMIDE 20 MG TABLET PO ×2 (09:41→21:08)
[2022-05-19] MEDS: DIGOXIN 0.125 MG TABLET PO (09:41)
--- NOTE | 2022-05-19 09:53 | PT.IPTN ---
Physical Therapy Treatment Note M2 PT-IP Current Condition Start: 05/17/22 13:55 Freq: Status: Active Protocol: Document 05/19/22 09:38 LRN (Rec: 05/19/22 09:53 LRN [id number]) Physical Therapy Current Condition Current Condition Evaluation Date 05/17/22 Treatment Diagnosis weakness; difficulty with ambulation Onset Date 05/17/22 M3 PT-IP Subjective Start: 05/17/22 13:55 Freq: Status: Active Protocol: Document 05/19/22 09:38 LRN (Rec: 05/19/22 09:53 LRN [id number]) Subjective Physical Therapy Visit Type Type Treatment Note Visit Start Time 09:10 Visit Stop Time 09:38 Total Visit Minutes 28 Notes 2 Physical Therapy Visit Comments Patient Comments Pt states he is doing better. Denies pain. Wondering what will be happening to him. Understands he is not yet ready to go home, although he states he has a at home. Therapy Pain Assessment Pain Present Pain Present Denied Pain M4 PT-IP Mobility and Gait Start: 05/17/22 13:55 Freq: Status: Active Protocol: Document 05/19/22 09:38 LRN (Rec: 05/19/22 09:53 LRN [id number]) PT-Bed Mobility Assessment Supine to Sit Supine to Sit Standby Assistance Sit to Supine Sit to Supine Standby Assistance,Contact Guard Assistance Scooting Scooting to Edge of Bed Standby Assistance PT-Transfer Assessment Sit to and From Stand Sit to and from Stand Contact Guard Assistance Equipment Transfer Assistive Device Gait Belt,Front Wheeled Walker Transfers Transfer Destination Bed Transfer Technique Ambulates Transfer Ability Level of Assist Standby Assistance,Contact Guard Assistance,1 Person Assistance Comments Mobility Comments FWW for sit<>stand x2 reps. No LOB backwards with sit<> stand transfer. Gait Assessment Gait Gait Assistance Required: Standby Assistance,Contact Guard Assist Distance (Feet) 30 Able to Maintain Weight Bearing Status Yes During Gait Assistive Devices Assistive Device Gait Belt,Front Wheeled Walker Gait Deviations General Gait Pattern Decreased Stride Length, Decreased Feet Clearance, Flexed Trunk Factors Limiting Gait Function Factors Limiting Gait Function Decreased Activity Tolerance, Decreased Strength Comments Gait Comments Pt shows no signs of LOB backwards or forwards. He does FB with gait, may be due to walker height that will need to be checked next session. Pt is very willing to ambulate and shows improved stability with gait. PT-Balance Assessment Sitting Balance and Reactions Static Sitting Balance Ability Good Dynamic Sitting Balance Ability Good Standing Balance and Reactions Static Standing Balance Ability Good Dynamic Standing Balance Ability Good Device Used FWW M5 PT-IP Objective Assessments Start: 05/17/22 13:55 Freq: Status: Active Protocol: Document 05/19/22 09:38 LRN (Rec: 05/19/22 09:53 LRN [id number]) Orientation Orientation/Cognition Level of Alertness Alert Orientation Name,Month,Day of Week,Place, Situation Language Function Ability No Deficits Noted Safety Awareness Understands Safety Issues M6 PT-IP Treatment Start: 05/17/22 13:55 Freq: Status: Active Protocol: Document 05/19/22 09:38 LRN (Rec: 05/19/22 09:53 LRN [id number]) Physical Therapy Treatment Other Treatments Other Treatment Performed Transfer & gait training. Vitals taken: At start: SpO2 99%, HR 110-97, BP 124/58 Sitting: SpO2 100, HR 94-97 After therapy at rest: SpO2 100%, HR 91, BP 125/69 M7 PT-IP Assessment and Plan Start: 05/17/22 13:55 Freq: Status: Active Protocol: Document 05/19/22 09:38 LRN (Rec: 05/19/22 09:53 LRN [id number]) PT Summary Assessment and Plan Potential Rehabilitation Potential Good Status of Condition at Evaluation Evolving Summary Impairments Strength,Bed Mobility, Transfers,Gait,Activity Tolerance Progress Towards Goals Progressing Toward Goals Assessment Summary Pt is improving in function with improved ability to get in/out of bed and gait. The pt still appears to have the most trouble with sit<>stand transfers with much use of UE' s to help get him onto his feet to minimize slipping of his feet (limited ankle DF and knee flex). The pt is progressing and will need continued assessment for placement, but at this time he appears to need [facility]AY or SNF for rehab. Goals Bed Mobility Goal Independent Transfer Goal Independent Gait Goal Standby Assistance Gait Distance 150 Other Goals Gait with FWW. Ascend/descend single step for curb mgmt, FWW, and SBA. Days to Meet Goals 5 Frequency of Treatment Frequency Of Treatment Once a Day Treatment Plan Physical Therapy Treatment Plan Bed Mobility Training,Transfer Training,Gait Training, Therapeutic Exercise,Balance Retraining,Discharge Planning Recommendations To Nursing Amount of Assist Needed 1 Person Assist Discharge Recommendations PT Discharge Recommendations SNF Rehab Transportation Needs at Discharge Wheelchair/Cabulance
[2022-05-19] MEDS: LEVOTHYROXINE 50 MCG TABLET PO (10:00)
--- NOTE | 2022-05-19 16:38 | OT.IP.TRT ---
Occupational Therapy Treatment Note M2 OT-IP Current Condition Start: 05/18/22 15:54 Freq: Status: Active Protocol: Document 05/18/22 15:55 [facility] (Rec: 05/18/22 16:07 [facility] [id number]) Occupational Therapy Current Condition Current Condition Evaluation Date 05/18/22 Treatment Diagnosis Weakness/diarrhea Diagnosis Onset Date 05/17/22 M3 OT- IP Subjective and Pain Start: 05/18/22 15:54 Freq: Status: Active Protocol: Document 05/19/22 16:15 [facility] (Rec: 05/19/22 17:05 [facility] [id number]) OT- Subjective Occupational Therapy Visit Type Type Treatment Note Visit Start Time 16:15 Visit Stop Time 16:38 Total Visit Minutes 23 Occupational Therapy Visit Comments Patient Comments Pt agreed to change his brief out. Patient/Caregiver Goals To go home. OT Pain Assessment Pain When Pain Assessed During Mobility Pain Present Pain Present Pain Reported M4 OT- IP ADL's Start: 05/18/22 15:54 Freq: Status: Active Protocol: Document 05/19/22 16:15 [facility] (Rec: 05/19/22 17:05 [facility] [id number]) OT ADL-Dressing General Eval Lower Body Dressing Ability Minimal Assistance Comments OT Dressing Comments Pt able to use hand marker to alina /doff his brief and slippers. Pt just needing a little assist to get the slippers over his feet. OT ADL-Toileting General Evaluation Toileting Ability Standby Assistance Areas Needing Assistance Manage Clothing,Perform Perineal Hygiene Comments OT Toileting Comments Pt able to use the FWW to stand and sit to change out his wet brief and also do hygiene needs. OT ADL-Bathing Comments OT Bathing Comments Not performed. M5 OT- IP IADL's Start: 05/18/22 15:54 Freq: Status: Active Protocol: Document 05/18/22 15:55 [facility] (Rec: 05/18/22 16:07 [facility] [id number]) OT-Instrumental Activities of Daily Living Deficits IADL Deficits Identified Deficits Home Safety Awareness Awareness of Need for Assistance at Home Good Awareness Medication Management Medication Management Comments Pt states did his own. Meal Preparation Meal Preparation Caregiver Provides Assist Collar Setter Collar Setter Caregiver Provides Assist M6 OT- IP Functional Cognition Start: 05/18/22 15:54 Freq: Status: Active Protocol: Document 05/19/22 16:15 [facility] (Rec: 05/19/22 17:05 [facility] [id number]) Cognitive Factors Limiting Selfcare Function Cognitive Comments Cognitive Assessment Comments Pt insistent that his will take him back or that he would like to go to skilled rehab for several days just to get his legs stronger. M7 OT- IP Mobility and Balance Start: 05/18/22 15:54 Freq: Status: Active Protocol: Document 05/19/22 16:15 [facility] (Rec: 05/19/22 17:05 [facility] [id number]) OT- Bed Mobility Assessment Supine to Sit Supine to Sit Assist Standby Assistance,Bedrails Sit to Supine Sit to Supine Assist Standby Assistance,Bedrails OT-Transfer Assessment Sit to and From Stand Sit to and from Stand Standby Assistance,1 Person Assistance Transfers Transfer Ability Standby Assistance,1 Person Assistance Technique Transfer Destination Bed Devices Transfer Assistive Devices Gait Belt,Front Wheeled Walker Comments Mobility Comments SBA for bed mobility and transfer in and out of the bed today which is much improved. OT- Balance Assessment Sitting Balance and Reactions Static Sitting Balance Ability Good Dynamic Sitting Balance Ability Good Standing Balance and Reactions Static Standing Balance Ability Fair Dynamic Standing Balance Ability Fair Comments Other Balance Tests/Deviations/Treatment Pt able to stand with FWW to : manage his brief with fair+ balance today. M8 OT- IP Objective Assessments Start: 05/18/22 15:54 Freq: Status: Active Protocol: Document 05/18/22 15:55 [facility] (Rec: 05/18/22 16:07 [facility] [id number]) OT Strength Upper Extremity Strength Assessment Within Functional Limits OT- Coordination Assessment Upper Extremity Finger to Nose Test Within Functional Limits M9 OT- IP Assessment and Plan Start: 05/18/22 15:54 Freq: Status: Active Protocol: Document 05/19/22 16:15 [facility] (Rec: 05/19/22 17:05 [facility] [id number]) OT Summary Assessment and Plan Potential Rehabilitation Potential Good Analytic Complexity at Evaluation Low Summary OT Impairments Pain,Range of Motion,Strength, Balance,Functional Mobility, Dressing,Toileting,Bathing, Toilet Transfers,Shower Transfers,Activity Tolerance Progress Towards Goals Progressing Toward Goals Assessment Summary Pt getting closer to his baseline needs and would benefit from short skilled rehab versus home with home health at this time. Pt currently does not have a place to go to per case management. Goals Grooming Goal Independent Dressing Goal Independent Toileting Goal Independent Bathing Goal Independent Toilet Transfer Goal Independent Shower Transfer Goal Independent Days to Meet Goals 10 Frequency of Treatment Frequency Of Treatment Once a Day Treatment Plan OT Treatment Plan ADL Training,Functional Cognition Training,Functional Mobility,Patient/Family Education,Discharge Planning Discharge Recommendations OT Discharge Recommendations Home with Assistance,Home Health,SNF Rehab Transportation Needs at Discharge Private Vehicle
--- NOTE | 2022-05-19 17:33 | PC.NURSE ---
PT advised tis RN that during their session today, he changed his own brief.
--- NOTE | 2022-05-19 18:28 | CM.SWNOTE ---
Addendum entered by Sybil Serrano 05/19/22 18:49: RASPER MACHINE OPERATOR calls patient's again per request from ED provider and RN regarding patient's ambulation trial. It is reported that patient ambulated 20 feet with FWW. reports her preference that patient d/c tomorrow after 10 am to get the house in order. RASPER MACHINE OPERATOR updates RN and ED provider. Updated plan: patient to d/c home tomorrow AM via [employer] with HH referral, family to discuss nursing home plan and [facility] to f/u with patient and spouse. Sybil Serrano, [facility] Original Note: ED DCP Note Continued. RASPER MACHINE OPERATOR receives VM from [employer] it is reported that patient is declined due to no DCP plan after SNF. RASPER MACHINE OPERATOR calls [facility] regarding patient, it is reported that patient is declined due to no DCP plan after SNF. RASPER MACHINE OPERATOR calls [facility] and left requesting return call. RASPER MACHINE OPERATOR calls [place] bilingual case manager and leaves , it is later reported that Pre-auth for SNF rehab is declined. RASPER MACHINE OPERATOR calls back and requests peer to peer and leaves requesting return call. RASPER MACHINE OPERATOR calls patient's son and endorses current situation and encourages him to seek out plan for patient and weather it is caregivers or intermodal owner operator truck driver care facility, he reports he plans to visit with them soon regarding this. Per [facility] Button Pusher and team, they applied for [facility] for KALEN and coordinated care but patient makes too much money. RASPER MACHINE OPERATOR discusses this with patient, patient endorses he cannot pay for private pay SNF or hotel. Patient endorses he has been talking with and he beleives he can return home. RASPER MACHINE OPERATOR sits with patient while he calls patient's , she endorses concern for patient to harm her but states that she is agreeable to have him home and states that there is no current NCO, patient endorses there is no NCO as well. Patient presents as tearful and patient's speaks with loud tone but repeatedly states that patient can come home. Patient states he can pay for [employer] [facility] [employer]. RASPER MACHINE OPERATOR calls Patient's son regarding this and he endorses that there is no NCO to his knowledge and endorses he plan to discuss intermodal owner operator truck driver care planning with patient and patient's . RASPER MACHINE OPERATOR calls [employer] dispatch and speaks with LE corporal. It is reported that he cannot divulge if there is a current NCO or not but if spouse, son and patient state there is not then go with what they say. RASPER MACHINE OPERATOR reviews this with ED provider, who requests ambulation trial for patient prior to d/c. Patient proceeds to walk with FWW. RASPER MACHINE OPERATOR calls [facility] and leaves regarding continued/new referral. RASPER MACHINE OPERATOR has ED provider sign F2F, F2F is scanned into EMR, RASPER MACHINE OPERATOR requests HH referral for HH aide, PT, OT, RN and RASPER MACHINE OPERATOR. RASPER MACHINE OPERATOR [facility] kitchen cleaner regarding patient disposition and he reports he can f/u with patient and spouse tomorrow. Plan: patient to d/c to home with via [email or web address] taxi with HH referral in place. Son to f/u with patient and spouse regarding nursing home care. Sybil Serrano, LENS MOLDER
--- NOTE | 2022-05-19 18:45 | PC.NURSE ---
Patient walked 20ft prior to resting, Physician and NURSE RECRUITER advised
--- NOTE | 2022-05-19 18:55 | PC.NURSE ---
cardiovascular radiologic technologist ambulated pt, able to walk 20 feet with walker, before sitting down to rest. Physician requested TAPE DUPLICATOR call to discuss discharge plan. TAPE DUPLICATOR/physician to confer and follow-up.
[2022-05-19] MEDS: INSULIN GLARGINE 100 UNIT/ML 3ML PEN 40 UNIT SUBCUT (21:16)
--- NOTE | 2022-05-19 21:27 | PC.NURSE ---
pt repositioned and a pillow placed behind his back for comfort
[2022-05-20] MEDS: LEVOTHYROXINE 50 MCG TABLET PO (06:54)
[2022-05-20 07:58] VITALS: BP 136/65; PULSE 70; RESP 18; TEMP 36.5; O2SAT 99
[2022-05-20] MEDS: INSULIN LISPRO 100 UNIT/ML 3ML VIAL SUBCUT (08:08)
[2022-05-20] MEDS: DIGOXIN 0.125 MG TABLET PO (08:10)
[2022-05-20] MEDS: FUROSEMIDE 20 MG TABLET PO (08:11)
[2022-05-20 08:14] VITALS: BP 136/65; PULSE 81; RESP 18; TEMP 36.6; O2SAT 98
== END 2022-05-20 09:50 | disposition home or self-care (01) ==
PROVIDERS: Emergency Medicine; Emergency Provider Emergency Medicine; PCP Internal Medicine
DX: E11.65 Type 2 diabetes mellitus with hyperglycemia (principal); Z79.4 Long term (current) use of insulin; N18.9 Chronic kidney disease, unspecified; D64.9 Anemia, unspecified; R79.1 Abnormal coagulation profile; Z79.01 Long term (current) use of anticoagulants; Z20.822 Contact with and (suspected) exposure to COVID-19
CPT/HCPCS: 0241U; 36415; 80048; 80053; 80162; 81003; 81015; 82550; 82962; 83605; 83690; 84484; 85025; 85610; 87086; 87147; 93005; 96360; 96361; 96372; 97116; 97161; 97530; 97535; 99284; J1815

== ENCOUNTER 2022-05-25 19:16 | Emergency (ER) | payer OTHER, SELFPAY ==
[2022-04-16 16:09] VITALS: BMI 32.4
[2022-05-25] VITALS (12 sets, daily range): BP systolic 104–136; BP diastolic 52–75; PULSE 64–105; RESP 16–24; TEMP 36.6; O2SAT 95–100
--- NOTE | 2022-05-25 19:32 | PC.NURSE ---
home blood sugar monitor reads 457.
--- NOTE | 2022-05-25 21:13 | DI.RAD.S_ITS ---
PROCEDURE: XR CHEST 1V INDICATIONS: chest pain TECHNIQUE: One view of the chest was acquired. COMPARISON: [facility], CR, XR CHEST 1V, 12/02/2021, 15:42. FINDINGS: Surgical changes and devices: None. Lungs and pleura: Lungs are clear. No pleural effusions or pneumothorax. Mediastinum: Mediastinal contours appear normal. Heart size is normal. Bones and chest wall: No suspicious bony lesions. Overlying soft tissues appear unremarkable. IMPRESSION: 1. No acute cardiopulmonary disease. Dictated by: Leandro Amado M.D. on 05/25/2022 at 21:51 Approved by: Leandro Amado M.D. on 05/25/2022 at 21:51
[2022-05-25 21:39] LABS: Add Manual Diff / Slide Review NO; Basophils Absolute Auto 100 /uL (0-100); Basophils Percent Auto 0.7 % (0-2); Eosinophils Absolute Auto 200 /uL (0-450); Eosinophils Percent Auto 2.7 % (2-4); Hematocrit 33.1 % (41-53); Hemoglobin 11.1 g/dL (13.5-17.5); Lymphocytes Absolute Auto 1600 /uL (1100-4500); Lymphocytes Percent Auto 19.3 % (25-40); Mean Corpuscular HGB Conc 33.5 % (30-36); Mean Corpuscular Hemoglobin 29.6 PG (26-34); Mean Corpuscular Volume 88.4 fL (80-100); Monocytes Absolute Auto 600 /uL (0-900); Monocytes Percent Auto 7.2 % (3-14); Neutrophils Absolute Auto 5800 /uL (1500-7000); Neutrophils Percent Auto 70.1 % (50-75); Platelet Count 205 X10^3/uL (150-400); Red Blood Cell Count 3.75 X10^6/uL (4.5-5.9); Red Cell Distribution Width 14.9 % (11.6-14.8); White Blood Cell Count 8.3 X10^3/uL (4.5-11.0)
[2022-05-25 21:42] LABS: INR 1.6 (0.9-1.3)
[2022-05-25 21:44] LABS: Alanine Aminotransferase 29 IU/L (<50); Albumin 3.6 g/dL (3.5-5.0); Albumin Globulin Ratio 1.2 (1.0-2.8); Alkaline Phosphatase 102 U/L (38-126); Aspartate Aminotransferase 32 IU/L (17-59); Bilirubin Total 0.7 mg/dL (0.2-1.3); Blood Urea Nitrogen 34 mg/dL (9-20); Calcium 8.4 mg/dL (8.4-10.2); Carbon Dioxide 27 mmol/L (22-32); Chloride 101 mmol/L (98-107); Creatine Kinase 45 U/L (55-170); Estimated Glomerular Filt Rate 36 mL/min (>60); Globulin 3.1 g/dL (1.7-4.1); Glucose 445 mg/dL (80-110); HEMOLYSIS < 15 (0-50); Lipase 142 U/L (23-300); Potassium 4.9 mmol/L (3.4-5.1); Sodium 136 mmol/L (137-145); Total Protein 6.7 g/dL (6.3-8.2)
[2022-05-25 21:45] LABS: PTT Partial Thromboplastin Tim 35 SECONDS (26-36)
[2022-05-25 21:49] LABS: COVID19 -Nasal RAPID Negative (Negative)
[2022-05-25 21:56] LABS: Troponin I < 0.012 ng/mL (0.01-0.034)
[2022-05-26] VITALS (8 sets, daily range): BP systolic 116–164; BP diastolic 64–80; PULSE 63–85; RESP 18–35; O2SAT 86–100
--- NOTE | 2022-05-26 01:12 | ED.MALEGU ---
HPI - Male Genitourinary General Chief complaint: Urogenital-Male Stated complaint: high blood sugar, trouble urinating Time Seen by Provider: 05/26/22 00:49 Mode of arrival: Wheelchair History of Present Illness HPI Narrative: Patient is an 86-year-old male history of insulin-dependent diabetes, atrial fibrillation, congestive heart failure presenting today with elevated blood sugars. He is had a lot going on at home he was previously living in a hotel until 10 days ago. He continues to feel weak. He was worried today because his blood sugars were in the 400s and elevated he denies any abdominal pain nausea or vomiting. He would 1 episode of diarrhea. He denies any chest pain palpitations shortness of breath fever or chills. He also reports frequent urination but not painful urination. Related Data Home Medications Medication Instructions Recorded Confirmed levothyroxine 50 mcg tablet 50 mcg PO MOTUWETHFRSA 09/16/17 05/17/22 docusate sodium 100 mg PO DAILY 01/06/20 04/16/22 mecobalamin (vitamin B12) 1,000 1,000 mcg PO DAILY 05/26/21 04/16/22 mcg chewable tablet rosuvastatin 5 mg tablet 5 mg PO DAILY 05/26/21 05/17/22 sennosides 8.6 mg tablet (senna) 8.6 mg PO DAILY PRN Constipation 05/26/21 04/16/22 triamcinolone acetonide 0.1 % 1 applic topical DAILY PRN Rash 05/26/21 04/16/22 topical cream insulin glargine 100 unit/mL (3 38 unit SUBCUT QAM 09/02/21 05/18/22 mL) subcutaneous pen (Lantus Solostar U-100 Insulin) warfarin 5 mg tablet 2.5 mg PO 4XW 09/02/21 05/17/22 warfarin 5 mg tablet (Coumadin) 5 mg PO 3XW 09/02/21 05/17/22 furosemide 20 mg tablet 20 mg PO BID 12/03/21 05/17/22 hydrocodone 5 mg-acetaminophen 325 1 tab PO Q6HR 05/05/22 05/17/22 mg tablet insulin lispro 100 unit/mL 1 sliding scale dose SUBCUT 05/05/22 05/18/22 subcutaneous pen (Humalog KwikPen USEASDIRECTD (U-100) Insulin) Previous Rx's Medication Instructions Recorded digoxin 125 mcg (0.125 mg) tablet 0.125 mg PO DAILY #30 tabs 10/01/19 midodrine 5 mg tablet 5 mg PO 0600,1200,1800 #15 tabs 10/01/19 mupirocin 2 % topical ointment 1 applic topical TID #15 grams 01/08/21 diclofenac sodium 1 % topical gel 2 g topical QID #100 grams 07/17/21 (Voltaren Arthritis Pain) lidocaine 5 % topical patch 1 patch topical DAILY PRN pain #15 07/17/21 ea Allergies Allergy/AdvReac Type Severity Reaction Status Date / Time Penicillins Allergy Intermediate Rash Verified 05/25/22 19:28 Review of Systems Review of Systems ROS Unobtainable: All systems reviewed & are unremarkable except as noted in HPI and below Patient History Medical History Arthritis Cancer of left ear Chronic atrial fibrillation with RVR Community acquired pneumonia COVID-19 Diabetes E coli infection Encounter for monitoring androgen deprivation therapy Hernia of abdominal cavity High blood pressure History of back pain History of urinary tract infection Hypothyroidism Inguinal hernia bilateral, non-recurrent Kidney stones Lower urinary tract symptoms Male circumcision Melanoma Prostate cancer Right eye injury Warfarin anticoagulation Surgical History H/O colectomy H/O vasectomy History of throat surgery History of transurethral resection of prostate Hx of cholecystectomy Hx of circumcision Hx of prostate biopsy Status post bilateral hernia repair Family History Mother Coronary artery disease Father Diabetes mellitus Hearing impairment Spouse CVA (cerebrovascular accident due to intracerebral hemorrhage) Kidney stones Social History marital status: number of children: 4 household members: none Smoking Status: Never smoker alcohol intake: former Type(s) of exercise: none Smoking Status: Never smoker alcohol intake frequency: 0-2 drinks per day Substance Use Type: does not use Exam Initial Vital Signs Initial Vital Signs: Vital Signs Temperature 98 F 05/25/22 19:23 Pulse Rate 83 05/25/22 19:23 Respiratory Rate 16 05/25/22 19:23 Blood Pressure 104/52 L 05/25/22 19:23 Pulse Oximetry 99 05/25/22 19:23 Oxygen Delivery Method Room Air 05/25/22 19:23 GENERAL: Alert 86-year-old male and in no acute distress. HEENT: Head atraumatic,EOMI, pupils reactive, face symmetric, moist mucous membranes CARDIOVASCULAR: Regular rate and rhythm without murmurs, rubs or gallops. RESPIRATORY: Breath sounds equal bilaterally, no wheezes rales or rhonchi. ABDOMEN: Soft, nontender. Normoactive bowel sounds all 4 quadrants. No guarding or rebound. EXTREMITIES: Normal range of motion, no clubbing or edema. Neurovascularly intact NEUROLOGICAL: Alert and oriented x4. SKIN: Warm, dry, no laceration, no petechiae, no rashes or lesions. Course Orders Ordered: Discontinued Medications Erythromycin (Erythromycin Ophth 1 Gm Oint) 1 applic EYE-BOTH NOW ONE Stop: 05/26/22 06:07 Last Admin: 05/26/22 06:11 Dose: 1 applic Documented By: TERRELL Vital Signs Vital signs: Vital Signs - 8 hr 05/25/22 23:00 05/25/22 23:01 05/25/22 23:01 Pulse Rate 77 76 Respiratory Rate 22 Blood Pressure 135/60 Pulse Oximetry 95 97 05/25/22 23:30 05/25/22 23:30 05/26/22 00:00 Pulse Rate 76 Respiratory Rate 19 Blood Pressure 117/75 131/79 Pulse Oximetry 05/26/22 00:00 05/26/22 00:30 05/26/22 00:30 Pulse Rate 85 67 Respiratory Rate 27 H 35 H Blood Pressure 145/64 H Pulse Oximetry 100 86 L 05/26/22 01:00 05/26/22 01:01 05/26/22 01:01 Pulse Rate 64 66 Respiratory Rate 22 18 Blood Pressure 164/70 H Pulse Oximetry 99 100 05/26/22 01:30 05/26/22 01:31 05/26/22 01:31 Pulse Rate 68 63 Respiratory Rate 24 22 Blood Pressure 151/74 H Pulse Oximetry 05/26/22 06:20 05/26/22 06:21 05/26/22 06:21 Pulse Rate 74 Respiratory Rate Blood Pressure 116/80 Pulse Oximetry [address] [facility] - Male Genitourinary Lab Data 05/25/22 21:20 05/25/22 21:20 Labs: Lab Results 05/25/22 05/25/22 05/25/22 Range/Units 21:20 21:20 21:20 WBC 8.3 (4.5-11.0) X10^3/uL RBC 3.75 L (4.5-5.9) X10^6/uL Hgb 11.1 L (13.5-17.5) g/dL Hct 33.1 L (41-53) % MCV 88.4 (80-100) fL MCH 29.6 (26-34) PG MCHC 33.5 (30-36) % RDW 14.9 H (11.6-14.8) % Plt Count 205 (150-400) X10^3/uL Neut % (Auto) 70.1 (50-75) % Lymph % (Auto) 19.3 L (25-40) % [place] % (Auto) 7.2 (3-14) % Eos % (Auto) 2.7 (2-4) % Baso % (Auto) 0.7 (0-2) % Neut # (Auto) 5800 (3358-2611) /uL Lymph # (Auto) 1600 (5929-3372) /uL [place] # (Auto) 600 (0-900) /uL Eos # (Auto) 200 (0-450) /uL Baso # (Auto) 100 (0-100) /uL PT 18.0 H D (10.1-12.7) SECONDS INR 1.6 H (0.9-1.3) APTT 35 (26-36) SECONDS Sodium 136 L (137-145) mmol/L Potassium 4.9 D (3.4-5.1) mmol/L Chloride 101 (98-107) mmol/L Carbon Dioxide 27 (22-32) mmol/L BUN 34 H (9-20) mg/dL Creatinine 1.79 H (0.66-1.25) mg/dL Estimated GFR 36 L (>60) mL/min BUN/Creatinine Ratio 19.0 (6-22) Glucose 445 H D (80-110) mg/dL Calcium 8.4 (8.4-10.2) mg/dL Magnesium 2.0 (1.6-2.3) mg/dL Total Bilirubin 0.7 (0.2-1.3) mg/dL AST 32 (17-59) IU/L ALT 29 (<50) IU/L Alkaline Phosphatase 102 (38-126) U/L Total Creatine Kinase 45 L (55-170) U/L CK-MB (CK-2) TNP CK-MB (CK-2) Rel Index TNP Troponin I < 0.012 (0.01-0.034) ng/mL Total Protein 6.7 (6.3-8.2) g/dL Albumin 3.6 (3.5-5.0) g/dL Globulin 3.1 (1.7-4.1) g/dL Albumin/Globulin Ratio 1.2 (1.0-2.8) Lipase 142 D (23-300) U/L SARS-CoV-2 (PCR) (Negative) 05/25/22 Range/Units 21:30 WBC (4.5-11.0) X10^3/uL RBC (4.5-5.9) X10^6/uL Hgb (13.5-17.5) g/dL Hct (41-53) % MCV (80-100) fL MCH (26-34) PG MCHC (30-36) % RDW (11.6-14.8) % Plt Count (150-400) X10^3/uL Neut % (Auto) (50-75) % Lymph % (Auto) (25-40) % [place] % (Auto) (3-14) % Eos % (Auto) (2-4) % Baso % (Auto) (0-2) % Neut # (Auto) (1337-5511) /uL Lymph # (Auto) (6394-2697) /uL [place] # (Auto) (0-900) /uL Eos # (Auto) (0-450) /uL Baso # (Auto) (0-100) /uL PT (10.1-12.7) SECONDS INR (0.9-1.3) APTT (26-36) SECONDS Sodium (137-145) mmol/L Potassium (3.4-5.1) mmol/L Chloride (98-107) mmol/L Carbon Dioxide (22-32) mmol/L BUN (9-20) mg/dL Creatinine (0.66-1.25) mg/dL Estimated GFR (>60) mL/min BUN/Creatinine Ratio (6-22) Glucose (80-110) mg/dL Calcium (8.4-10.2) mg/dL Magnesium (1.6-2.3) mg/dL Total Bilirubin (0.2-1.3) mg/dL AST (17-59) IU/L ALT (<50) IU/L Alkaline Phosphatase (38-126) U/L Total Creatine Kinase (55-170) U/L CK-MB (CK-2) CK-MB (CK-2) Rel Index Troponin I (0.01-0.034) ng/mL Total Protein (6.3-8.2) g/dL Albumin (3.5-5.0) g/dL Globulin (1.7-4.1) g/dL Albumin/Globulin Ratio (1.0-2.8) Lipase (23-300) U/L SARS-CoV-2 (PCR) Negative (Negative) Point of Care Testing Glucose POC 323 Urine Dip Bedside Urine Glucose 1000 mg/dl Bedside Urine Bilirubin - Negative Bedside Urine Ketone - Negative Urine Specific [place] 1.01 Bedside Urine Occult Blood - Negative Bedside Urine pH 6.0 Bedside Urine Protein - Negative Bedside Urine Urobilinogen - Negative Bedside Urine Nitrite - Negative Bedside Urine Leukocytes - Negative Esterase Imaging Data Chest x-ray: Radiologist's Impression: PROCEDURE:? XR CHEST 1V ? INDICATIONS:? chest pain ? TECHNIQUE:? One view of the chest was acquired.? ? COMPARISON:? [facility], , XR CHEST 1V, 12/02/2021, 15:42. ? FINDINGS:? ? Surgical changes and devices:? None.? ? Lungs and pleura:? Lungs are clear.? No pleural effusions or pneumothorax.? ? Mediastinum:? Mediastinal contours appear normal.? Heart size is normal.? ? Bones and chest wall:? No suspicious bony lesions.? Overlying soft tissues appear unremarkable.? ? IMPRESSION:? ? 1.? No acute cardiopulmonary disease. ? ? ? Dictated by: Leandro Amado M.D. on 05/25/2022 at 21:51 ?? ECG Data Interpretation: Atrial fibrillation rate 67 right bundle-branch block noted similar to previous MDM Narrative Medical decision making narrative: Patient presents today with elevated glucose and ongoing weakness. He is multiple comorbidities. He has been here a lot lately. He recently had a domestic dispute and there was a restraining order. That appears to be lifted he is back at home they are talking about moving and going to [facility]. He does not have evidence of DKA, glucose is 440 bicarb 27 potassium 4.9. There was no evidence UTI. Rate is controlled AFib. Other electrolytes within normal limits CBC also unremarkable. Patient talking quite a bit about his home situation occasionally tearful. At this time no need for further workup or admission. Repeat POC was 323. He agrees to go home. [employer] was called for him. Discharge Plan Departure Patient Disposition: Home Clinical Impression: Acute hyperglycemia Instructions: DI for Hyperglycemia -- Adult Activity Restrictions/Additional Instructions: *You have been diagnosed with hyperglycemia *What to do: Please talk to your provider about your elevated glucose. Your medication may need to be adjusted. *Continue to take medications as directed *Follow up with your primary care provider in 2-3 days or call [phone] *Return to ER if you should have falling, chest pain, shortness of breath fever confused or any new, worsening or concerning symptoms Prescriptions: No Action mupirocin 2 % ointment 1 applic topical TID Qty: 15 0RF midodrine 5 mg Tablet 5 mg PO 0600,1200,1800 Qty: 15 0RF Rx Instructions: Pt states his doctor took him off of this for a while; hes not sure why Takes once daily in am digoxin 125 mcg (0.125 mg) Tablet 0.125 mg PO DAILY Qty: 30 0RF Rx Instructions: AM lidocaine 5 % adhesive patch,medicated 1 patch topical DAILY PRN (Reason: pain) Qty: 15 0RF Rx Instructions: leave on most painful area for up to 12 hrs diclofenac sodium [Voltaren Arthritis Pain] 1 % gel 2 g topical QID Qty: 100 0RF Rx Instructions: apply to single elbow, wrist or hand; for hand includes palm/fingers/back of hand furosemide 20 mg tablet 20 mg PO BID Rx Instructions: AM hydrocodone-acetaminophen 5-325 mg tablet 1 tab PO Q6HR Rx Instructions: Take 1 tablet by mouth every 6 hours as needed for pain. max daily amount ; 4 tablets. Max 4,000mg day acetaminophen all sources insulin lispro [Humalog KwikPen Insulin] 100 unit/mL Insulin Pen 1 sliding scale dose SUBCUT USEASDIRECTD Rx Instructions: inject 12 units subcutaneously at breakfast' 9 units at lunch; 15 units at dinner. Max units per day:36 levothyroxine 50 mcg Tablet 50 mcg PO MOTUWETHFRSA Rx Instructions: I tablet by mouth daily, except 2 tablets by mouth on Sundays warfarin [Coumadin] 5 mg tablet 5 mg PO 3XW Rx Instructions: Take 1 tablet by mouth daily on Wednesday and Wednesday docusate sodium 100 mg 100 mg PO DAILY warfarin 5 mg tablet 2.5 mg PO 4XW Rx Instructions: , Wednesday, , Wed, Sun rosuvastatin 5 mg tablet 5 mg PO DAILY Rx Instructions: AM sennosides [senna] 8.6 mg tablet 8.6 mg PO DAILY PRN (Reason: Constipation) triamcinolone acetonide 0.1 % cream 1 applic topical DAILY PRN (Reason: Rash) mecobalamin (vitamin B12) 1,000 mcg tablet,chewable 1,000 mcg PO DAILY Lantus Solostar U-100 Insulin 100 unit/mL (3 mL) insulin pen 38 unit SUBCUT QAM Referrals: Lo Figueroa MD [Primary Care Provider] - Stand Alone Forms: Patient Portal/API
[2022-05-26] MEDS: ERYTHROMYCIN OPHTH 1 GM OINT 1 APPLIC EYE-BOTH (06:11)
== END 2022-05-26 06:25 | disposition home or self-care (01) ==
PROVIDERS: Emergency Provider Emergency Medicine; PCP Internal Medicine
DX: E11.65 Type 2 diabetes mellitus with hyperglycemia (principal); R07.9 Chest pain, unspecified; I48.91 Unspecified atrial fibrillation; Z79.01 Long term (current) use of anticoagulants; Z20.822 Contact with and (suspected) exposure to COVID-19
CPT/HCPCS: 36415; 51798; 71045; 80053; 81003; 82550; 82962; 83690; 83735; 84484; 85025; 85610; 85730; 87635; 99284; C9803

== ENCOUNTER → 2022-07-07 17:27 | Outpatient (CLI) | payer OTHER, SELFPAY ==
[2022-04-16 16:09] VITALS: BMI 32.4
[2022-07-07 19:02] LABS: Prostate Specific Antigen < 0.064 ng/mL (0.10-4.00)
== END ==
PROVIDERS: PCP Internal Medicine; Referring Provider Urology; Visit Provider Urology
DX: C61 Malignant neoplasm of prostate (principal)
CPT/HCPCS: 36415; 84153

== ENCOUNTER → 2022-07-15 10:04 | Outpatient (CLI) | payer OTHER, SELFPAY ==
[2022-04-16 16:09] VITALS: BMI 32.4
--- NOTE | 2022-07-15 10:05 | DI.RAD.S_ITS ---
PROCEDURE: XR KUB INDICATIONS: Kidney stone TECHNIQUE: One view of the abdomen acquired. COMPARISON: [facility], CR, XR KUB, 04/07/2022, 17:29. [facility], CR, XR KUB, 01/01/2022, 17:06. FINDINGS: Surgical changes and devices: None. Bowel: Bowel gas pattern is normal. Soft tissues: No suspicious abdominal calcifications. Visualized solid organ contours appear normal in size. 6 millimeter calcification projecting over the right kidney. Bones: No suspicious bony lesions. IMPRESSION: 6 millimeter calcification projecting over the right kidney, similar to prior. Dictated by: Daniel Awan M.D. on 07/15/2022 at 13:11 Approved by: Daniel Awan M.D. on 07/15/2022 at 13:14
== END ==
PROVIDERS: PCP Internal Medicine; Referring Provider Urology; Visit Provider Urology
DX: N20.0 Calculus of kidney (principal)
CPT/HCPCS: 74018